=== PATIENT | female | born 1995 | race Caucasian/White ===

== ENCOUNTER 2022-08-01 22:13 | Outpatient (REF) | payer OTHER, SELFPAY ==
[2022-08-06 13:09] LABS: Age Gdln ACOG Testing Note (.); IGP, rfx Aptima HPV ASCU Note (.)
== END 2022-08-01 22:14 | disposition home or self-care (01) ==
LOC: LAB 22:13
PROVIDERS: Visit Provider Obstetrics & Gynecology
DX: Z12.4 Encounter for screening for malignant neoplasm of cervix (principal)
CPT/HCPCS: G0145

== ENCOUNTER 2022-09-10 11:15 | Outpatient (OUT) | payer BC, OTHER, SELFPAY ==
--- NOTE | 2022-09-10 11:20 | US_ITS ---
[address] [address] Patient Name: EPHRAIM MONTGOMERY MRN: [id number] date: 1995 Sex: F Assigned Patient Location: US Current Patient Location: Accession/Order Number: [id number] Exam Date: 09/10/2022 11:20 Report Date: 09/10/2022 15:46 At the request of: ALEX RIDER Procedure: US OB anatomy EXAMINATION: US OB anatomy HISTORY: ANATOMY COMPARISON: No relevant comparison available. TECHNIQUE: Transabdominal sonographic examination was performed for obstetrical and evaluation. FINDINGS: Number: 1 Heart Rate: 152.0 bpm H.B. /min Amniotic Fluid Volume: Subjectively normal Placental Location: Anterior with lower margin 9.4 cm from os. Cervix Length: 5 cm , closed. ANATOMY: Normal Structures -cerebellum, choroid plexus, cisterna magna, lateral cerebral ventricles, orbits, midline falx, hard palate, four-chamber heart, RVOT, LVOT, stomach, kidneys, bladder, umbilical cord insertion into abdomen, three-vessel cord, cervical spine, thoracic spine, lumbar spine, sacral spine, right upper extremity, left upper extremity, right lower extremity, left lower extremity. SUBOPTIMALLY SEEN: None ABNORMALITIES: Echogenic focus within left cardiac ventricle. Slightly prominent renal pelvis, left greater than right. BIOMETRY: BPD: 5.0 cm 21 weeks 0 days HC: 18.3 cm 20 weeks 5 days AC: 16.7 cm 21 weeks 5 days FL: 3.4 cm 20 weeks 4 days EFW:401.8 grams; 92% FL/AC: 20.2 FL/BPD: 67.8 HC/AC: 1.1 GESTATIONAL AGE: Age by EDC: 20 weeks 1 days LIZBET by EDC: 01/27/2023 Age by current US: 21 weeks 0 days LIZBET by current US: 01/21/2023 US/US OB anatomy IMPRESSION: 1. Single live intrauterine with growth detailed above. 2. Echogenic focus within left cardiac ventricle; nonspecific but can be associated with the trisomy syndromes. 3. Slightly prominent renal pelvis bilaterally, but within normal limits. Electronically authenticated by: HEATHER ANDREWS Date: 09/10/2022 15:46
--- NOTE | 2022-09-10 11:20 | US_ITS ---
[address] [address] Patient Name: EPHRAIM MONTGOMERY MRN: [id number] date: 1995 Sex: F Assigned Patient Location: US Current Patient Location: Accession/Order Number: [id number] Exam Date: 09/10/2022 11:20 Report Date: 09/10/2022 15:46 At the request of: ALEX RIDER Procedure: US OB transvaginal EXAMINATION: US OB anatomy HISTORY: ANATOMY COMPARISON: No relevant comparison available. TECHNIQUE: Transabdominal sonographic examination was performed for obstetrical and evaluation. FINDINGS: Number: 1 Heart Rate: 152.0 bpm H.B. /min Amniotic Fluid Volume: Subjectively normal Placental Location: Anterior with lower margin 9.4 cm from os. Cervix Length: 5 cm , closed. ANATOMY: Normal Structures -cerebellum, choroid plexus, cisterna magna, lateral cerebral ventricles, orbits, midline falx, hard palate, four-chamber heart, RVOT, LVOT, stomach, kidneys, bladder, umbilical cord insertion into abdomen, three-vessel cord, cervical spine, thoracic spine, lumbar spine, sacral spine, right upper extremity, left upper extremity, right lower extremity, left lower extremity. SUBOPTIMALLY SEEN: None ABNORMALITIES: Echogenic focus within left cardiac ventricle. Slightly prominent renal pelvis, left greater than right. BIOMETRY: BPD: 5.0 cm 21 weeks 0 days HC: 18.3 cm 20 weeks 5 days AC: 16.7 cm 21 weeks 5 days FL: 3.4 cm 20 weeks 4 days EFW:401.8 grams; 92% FL/AC: 20.2 FL/BPD: 67.8 HC/AC: 1.1 GESTATIONAL AGE: Age by EDC: 20 weeks 1 days LIZBET by EDC: 01/27/2023 Age by current US: 21 weeks 0 days LIZBET by current US: 01/21/2023 US/US OB transvaginal IMPRESSION: 1. Single live intrauterine with growth detailed above. 2. Echogenic focus within left cardiac ventricle; nonspecific but can be associated with the trisomy syndromes. 3. Slightly prominent renal pelvis bilaterally, but within normal limits. Electronically authenticated by: HEATHER ANDREWS Date: 09/10/2022 15:46
== END 2022-09-10 11:16 | disposition home or self-care (01) ==
LOC: US 11:15
PROVIDERS: PCP Family Medicine; Visit Provider Obstetrics & Gynecology
DX: O36.8920 Maternal care for other specified fetal problems, second trimester, not applicable or unspecified (principal); Z3A.00 Weeks of gestation of pregnancy not specified
CPT/HCPCS: 76805; 76817

== ENCOUNTER 2022-10-12 07:57 | Outpatient (OUT) | payer OTHER, SELFPAY ==
--- NOTE | 2022-10-12 08:08 | US_ITS ---
[address] [address] Patient Name: EPHRAIM MONTGOMERY MRN: [id number] date: 1995 Sex: F Assigned Patient Location: US Current Patient Location: Accession/Order Number: [id number] Exam Date: 10/12/2022 08:12 Report Date: 10/12/2022 09:31 At the request of: ALEX RIDER Procedure: US OB follow up EXAMINATION: US OB follow up HISTORY: Second Trimester Z34.92 COMPARISON: No relevant comparison available. FINDINGS: Mild dilation of bilateral renal pelvis measuring 3.6 mm on the right and 6.1 mm on the left Stable single cardiac echogenic focus Heart rate: 145 beats minute Cephalic position US/US OB follow up IMPRESSION: Stable echogenic cardiac focus Stable mild bilateral renal pelviectasis Electronically authenticated by: NILDA HANDLEY Date: 10/12/2022 09:31
== END 2022-10-12 07:58 | disposition home or self-care (01) ==
LOC: US 07:57
PROVIDERS: PCP Family Medicine; Visit Provider Obstetrics & Gynecology
DX: Z34.92 Encounter for supervision of normal pregnancy, unspecified, second trimester (principal)
CPT/HCPCS: 76816

== ENCOUNTER 2022-10-12 08:48 | Outpatient (OUT) | payer OTHER, SELFPAY ==
[2022-10-12 10:01] LABS: Basophils Percent Auto 0.2 % (0.2-2.0); Eosinophils Absolute Auto 0.1 10^3/uL (0.0-0.7); Eosinophils Percent Auto 0.8 % (0.9-7.0); Hematocrit 35.2 % (36.0-48.0); Hemoglobin 11.5 g/dL (12.0-16.0); Immature Granulocytes Abs Auto 0.06 10^3/uL (0.00-0.03); Immature Granulocytes Pct Auto 0.7 % (0.0-0.5); Lymphocytes Absolute Auto 1.4 10^3/uL (1.2-3.8); Lymphocytes Percent Auto 15.5 % (20.5-60.0); Mean Corpuscular HGB Conc 32.7 g/dL (29.9-35.2); Mean Corpuscular Volume 88.7 fL (81.0-99.0); Mean Platelet Volume 10.9 fL (9.5-13.5); Monocytes Absolute Auto 0.6 10^3/uL (0.3-0.8); Monocytes Percent Auto 6.4 % (1.7-12.0); Neutrophils Absolute Auto 6.9 10^3/uL (1.4-6.5); Neutrophils Percent Auto 76.4 % (43.0-75.0); Platelet Count 171 10^3/uL (150-450); Red Blood Count 3.97 10^6/uL (4.20-5.40); Red Cell Distribution Width 12.9 % (11.0-15.0)
[2022-10-12 10:23] LABS: Glucose 1 Hour 124 mg/dL
== END 2022-10-12 08:49 | disposition home or self-care (01) ==
LOC: LAB 08:48
PROVIDERS: PCP Family Medicine; Visit Provider Obstetrics & Gynecology
DX: Z34.92 Encounter for supervision of normal pregnancy, unspecified, second trimester (principal)
CPT/HCPCS: 36415; 76816; 82950; 85025

== ENCOUNTER 2022-11-11 10:40 | Observation (INO) | payer OTHER, SELFPAY ==
[2022-11-11 11:02] VITALS: BP 126/65; PULSE 90
[2022-11-11 11:03] VITALS: TEMP 35.8
--- NOTE | 2022-11-11 11:11 | US_ITS ---
The [address] [address] Patient Name: EPHRAIM MONTGOMERY MRN: [id number] date: 1995 Sex: F Assigned Patient Location: [facility] Current Patient Location: Accession/Order Number: [id number] Exam Date: 11/11/2022 11:15 Report Date: 11/11/2022 12:53 At the request of: ALEX RIDER Procedure: US OB cervical length US OB cervical length, US OB placenta CLINICAL HISTORY: Cervical length. History of labor with back pain and nausea for one day. No marginal cord insertion. COMPARISON: A 07/07/2022. 09/11/2022. TECHNIQUE: Transabdominal grayscale and limited images of the placenta and fetus with no dedicated biometrics or anatomic imaging. Transvaginal imaging for cervical length. FINDINGS/IMPRESSION: US/US OB cervical length IMPRESSION: 1. Single live intrauterine gestation presently in a cephalic presentation. 2. The placenta is anterior, with no abruption and known marginal cord insertion. 12.8 cm placental tip to internal os. 3. heartbeat of 156 beats per minute. 4. Transvaginal imaging for cervical length demonstrates 3.2 cm length. Internal os is grossly closed with no significant funneling but there is very trace fluid seen in the endocervical canal. Electronically authenticated by: JIMY STANFORD Date: 11/11/2022 12:53
--- NOTE | 2022-11-11 11:11 | US_ITS ---
The [address] [address] Patient Name: EPHRAIM MONTGOMERY MRN: [id number] date: 1995 Sex: F Assigned Patient Location: [facility] Current Patient Location: Accession/Order Number: [id number] Exam Date: 11/11/2022 11:15 Report Date: 11/11/2022 12:53 At the request of: ALEX RIDER Procedure: US OB placenta US OB cervical length, US OB placenta CLINICAL HISTORY: Cervical length. History of labor with back pain and nausea for one day. No marginal cord insertion. COMPARISON: A 07/07/2022. 09/11/2022. TECHNIQUE: Transabdominal grayscale and limited images of the placenta and fetus with no dedicated biometrics or anatomic imaging. Transvaginal imaging for cervical length. FINDINGS/IMPRESSION: US/US OB placenta IMPRESSION: 1. Single live intrauterine gestation presently in a cephalic presentation. 2. The placenta is anterior, with no abruption and known marginal cord insertion. 12.8 cm placental tip to internal os. 3. heartbeat of 156 beats per minute. 4. Transvaginal imaging for cervical length demonstrates 3.2 cm length. Internal os is grossly closed with no significant funneling but there is very trace fluid seen in the endocervical canal. Electronically authenticated by: JIMY STANFORD Date: 11/11/2022 12:53
[2022-11-11 11:15] LABS: Bilirubin Urine NEGATIVE (NEGATIVE); Blood Urine NEGATIVE (NEGATIVE); Clarity Urine CLEAR (CLEAR); Color Urine LT. YELLOW (YELLOW); Glucose Urine UA NEGATIVE (NEGATIVE); Ketones Urine NEGATIVE (NEGATIVE); Leukocyte Esterase Urine MODERATE (NEGATIVE); Nitrite Urine NEGATIVE (NEGATIVE); Protein Urine NEGATIVE (NEG/TRACE); Specific Gravity Urine 1.015 (1.005-1.025); Urobilinogen Urine 0.2 EU/dL (0.2-1.0); pH Urine 7.5 (5.0-9.0)
[2022-11-11 11:19] LABS: Urine Microscopic Indicated YES
[2022-11-11 11:21] LABS: Bacteria Urine TRACE #/HPF (NONE SEEN); Cast Seen? NONE SEEN #/LPF (NONE SEEN); Crystals Seen? None Seen #/HPF (None Seen); Mucus Urine NONE SEEN (NONE SEEN); RBC Urine NONE SEEN #/HPF (0-2); Squamous Epithelial Cell Urine MODERATE #/LPF (NONE/RARE)
[2022-11-11 11:22] LABS: Urine Culture Indicated YES
== END 2022-11-11 12:15 | disposition home or self-care (01) ==
LOC: FBC 10:41
PROVIDERS: Admitting Provider Obstetrics & Gynecology; PCP Family Medicine; Visit Provider Obstetrics & Gynecology
DX: O26.893 Other specified pregnancy related conditions, third trimester (principal); M54.50 Low back pain, unspecified; Z3A.29 29 weeks gestation of pregnancy; O09.213 Supervision of pregnancy with history of pre-term labor, third trimester
CPT/HCPCS: 59025; 76815; 76817; 81001; 87086; G0378; G0379

== ENCOUNTER 2022-12-04 21:52 | Outpatient (OUT) | payer OTHER, SELFPAY ==
[2022-12-04 22:20] VITALS: RESP 18; TEMP 37.3
[2022-12-04 22:22] VITALS: BP 101/63; PULSE 73
[2022-12-04 22:41] LABS: Bilirubin Urine NEGATIVE (NEGATIVE); Blood Urine NEGATIVE (NEGATIVE); Clarity Urine CLEAR (CLEAR); Color Urine LT. YELLOW (YELLOW); Glucose Urine UA NEGATIVE (NEGATIVE); Ketones Urine NEGATIVE (NEGATIVE); Leukocyte Esterase Urine SMALL (NEGATIVE); Nitrite Urine NEGATIVE (NEGATIVE); Protein Urine NEGATIVE (NEG/TRACE); Urobilinogen Urine 0.2 EU/dL (0.2-1.0); pH Urine 7.5 (5.0-9.0)
[2022-12-04 22:44] LABS: Urine Microscopic Indicated YES
[2022-12-04 22:45] LABS: Amnisure NEGATIVE (NEGATIVE)
[2022-12-04 22:54] LABS: Bacteria Urine TRACE #/HPF (NONE SEEN); Cast Seen? NONE SEEN #/LPF (NONE SEEN); Crystals Seen? None Seen #/HPF (None Seen); Mucus Urine NONE SEEN (NONE SEEN); Squamous Epithelial Cell Urine FEW #/LPF (NONE/RARE)
[2022-12-04 22:55] LABS: Urine Culture Indicated YES
== END 2022-12-05 01:18 | disposition home or self-care (01) ==
LOC: FBCO 21:55 → FBC 21:57
PROVIDERS: PCP Family Medicine; Visit Provider Obstetrics & Gynecology
DX: O26.899 Other specified pregnancy related conditions, unspecified trimester (principal); R10.2 Pelvic and perineal pain; H53.8 Other visual disturbances; R51.9 Headache, unspecified; R10.11 Right upper quadrant pain; Z3A.00 Weeks of gestation of pregnancy not specified
CPT/HCPCS: 59025; 81001; 84112; 87086

== ENCOUNTER 2022-12-17 07:24 | Outpatient (OUT) | payer OTHER, SELFPAY ==
--- NOTE | 2022-12-17 | US_ITS ---
[address] [address] Patient Name: EPHRAIM MONTGOMERY MRN: [id number] date: 1995 Sex: F Assigned Patient Location: [facility] Current Patient Location: Accession/Order Number: [id number] Exam Date: 12/17/2022 10:30 Report Date: 12/17/2022 15:19 At the request of: ALEX RIDER Procedure: US OB BPP w non-stress EXAMINATION: US OB BPP w non-stress HISTORY: THIRD TRIMESTER Z34.93 COMPARISON: Ultrasound OB anatomy 09/10/2022 TECHNIQUE: Ultrasound biophysical profile was performed in the radiology department. BREATHING MOVEMENTS: 2.0 GROSS BODY MOVEMENTS: 2.0 TONE: 2.0 QUALITATIVE AMNIOTIC FLUID VOLUME: 2.0 PRESENTATION: CEPHALIC HEART RATE: 166.3 bpm bpm. AMNIOTIC FLUID VOLUME: 10.8 cm GESTATIONAL AGE: 34 weeks 1 days CONCLUSION: Total biophysical profile score 8.0. Electronically authenticated by: HEATHER ANDREWS Date: 12/17/2022 15:19
[2022-12-17 10:00] VITALS: BP 110/65; PULSE 95
== END 2022-12-17 10:50 | disposition home or self-care (01) ==
LOC: US 07:25 → FBC 09:51
PROVIDERS: PCP Family Medicine; Visit Provider Obstetrics & Gynecology
DX: Z34.93 Encounter for supervision of normal pregnancy, unspecified, third trimester (principal); Z3A.34 34 weeks gestation of pregnancy
CPT/HCPCS: 76818

== ENCOUNTER 2022-12-24 07:40 | Outpatient (OUT) | payer OTHER, SELFPAY ==
--- NOTE | 2022-12-24 09:54 | US_ITS ---
[address] [address] Patient Name: EPHRAIM MONTGOMERY MRN: [id number] date: 1995 Sex: F Assigned Patient Location: [facility] Current Patient Location: Accession/Order Number: [id number] Exam Date: 12/24/2022 09:58 Report Date: 12/24/2022 17:11 At the request of: ALEX RIDER Procedure: US OB BPP w non-stress EXAMINATION: US OB BPP w non-stress HISTORY: Third trimester Z34.93 COMPARISON: No relevant comparison available. TECHNIQUE: Ultrasound biophysical profile was performed in the radiology department. FINDINGS: BREATHING MOVEMENTS: 2.0 GROSS BODY MOVEMENTS: 2.0 TONE: 2.0 QUALITATIVE AMNIOTIC FLUID VOLUME: 2.0 PRESENTATION: CEPHALIC HEART RATE: 133.7 bpm H.B./min AMNIOTIC FLUID VOLUME: 17.3 cm cm GESTATIONAL AGE: 35 weeks 1 days CONCLUSION: Total biophysical profile score: 8.0 Electronically authenticated by: NILDA HANDLEY Date: 12/24/2022 17:11
[2022-12-24 10:25] VITALS: BP 122/74; PULSE 72
== END 2022-12-24 10:50 | disposition home or self-care (01) ==
LOC: US 07:41 → FBC 09:51
PROVIDERS: PCP Family Medicine; Visit Provider Obstetrics & Gynecology
DX: Z34.93 Encounter for supervision of normal pregnancy, unspecified, third trimester (principal); Z3A.35 35 weeks gestation of pregnancy
CPT/HCPCS: 76818

== ENCOUNTER 2022-12-27 01:04 | Inpatient (IN) | payer OTHER, SELFPAY ==
[2022-12-27] VITALS (66 sets, daily range): BP systolic 95–152; BP diastolic 54–86; PULSE 60–107; RESP 16–18; TEMP 35.9–37.1
[2022-12-27 01:24] LABS: Bilirubin Urine NEGATIVE (NEGATIVE); Blood Urine MODERATE (NEGATIVE); Clarity Urine CLEAR (CLEAR); Color Urine LT. YELLOW (YELLOW); Glucose Urine UA NEGATIVE (NEGATIVE); Ketones Urine NEGATIVE (NEGATIVE); Leukocyte Esterase Urine NEGATIVE (NEGATIVE); Nitrite Urine NEGATIVE (NEGATIVE); Protein Urine TRACE mg/dL (NEG/TRACE); Specific Gravity Urine 1.015 (1.005-1.025); Urobilinogen Urine 0.2 EU/dL (0.2-1.0)
[2022-12-27 01:25] LABS: Urine Microscopic Indicated YES
[2022-12-27 01:33] LABS: Bacteria Urine SMALL #/HPF (NONE SEEN); Cast Seen? NONE SEEN #/LPF (NONE SEEN); Crystals Seen? None Seen #/HPF (None Seen); Mucus Urine NONE SEEN (NONE SEEN); Squamous Epithelial Cell Urine MODERATE #/LPF (NONE/RARE); Urine Culture Indicated YES
[2022-12-27] MEDS: 0.9 % SODIUM CHLORIDE 1,000 ML 125 ML IV ×2 (01:51→07:55)
[2022-12-27] MEDS: AMPICILLIN SODIUM 2,000 MG in 0.9 % SODIUM CHLORIDE 100 ML 200 MG IV (01:52)
[2022-12-27] MEDS: BETAMETHASONE ACE/BETAMETHASONE SOD PHOS 30 MG/5 ML 12 MG IM (01:52)
[2022-12-27 02:07] LABS: Hematocrit 35.1 % (36.0-48.0); Hemoglobin 11.4 g/dL (12.0-16.0); Mean Corpuscular HGB Conc 32.5 g/dL (29.9-35.2); Mean Corpuscular Hemoglobin 27.9 pg (26.7-34.0); Platelet Count 184 10^3/uL (150-450); Red Blood Count 4.08 10^6/uL (4.20-5.40); Red Cell Distribution Width 12.9 % (11.0-15.0); White Blood Count 14.4 10^3/uL (4.0-11.0)
[2022-12-27 02:19] LABS: Amphetamine Screen Urine NEGATIVE (NEGATIVE); Barbiturates Screen Urine NEGATIVE (NEGATIVE); Benzodiazepines Screen Urine NEGATIVE (NEGATIVE); Buprenorphine Screen Urine NEGATIVE (NEGATIVE); Cannabinoid Screen Urine NEGATIVE (NEGATIVE); Cocaine Screen Urine NEGATIVE (NEGATIVE); Methadone Screen Urine NEGATIVE (NEGATIVE); Methamphetamines Screen Urine NEGATIVE (NEGATIVE); Opiate Screen Urine NEGATIVE (NEGATIVE); Oxycodone Screen Urine NEGATIVE (NEGATIVE); Phencyclidine Screen Urine NEGATIVE (NEGATIVE); Tricyclic Antidepressant Urine NEGATIVE (NEGATIVE)
[2022-12-27] MEDS: 0.9 % SODIUM CHLORIDE 1,000 ML 1000 ML IV (05:20)
[2022-12-27] MEDS: LIDOCAINE HCL 2% PF 100 MG/5 ML VIAL INJ (05:59)
[2022-12-27] MEDS: ROPIVACAINE HCL/PF 400 MG/200 ML PREMIX 6 MG EPIDURAL (06:00)
[2022-12-27] MEDS: AMPICILLIN SODIUM 1,000 MG in 0.9 % SODIUM CHLORIDE 50 ML 100 MG IV ×2 (06:04→10:21)
--- NOTE | 2022-12-27 07:18 | W.PC.ACHO ---
Registration Status: ADM IN Primary Language: Citizen [place] Preferred Language: Citizen [place] Active Medications Generic Name Dose Route Start Last Admin Trade Name Freq PRN Reason Stop Dose Admin Diphenhydramine HCl 25 mg 12/27/22 04:21 Diphenhydramine Hcl 50 Mg/Ml (1ml) Vial IV 12/28/22 04:22 Q6H PRN Itching Ephedrine Sulfate 5 mg 12/27/22 04:21 Ephedrine Sulfate 50 Mg/Ml Vial IV 12/28/22 04:22 Q5M PRN Blood Pressure - Low Fentanyl Citrate 100 mcg 12/27/22 04:21 Fentanyl Citrate/Pf 100 Mcg/2 Ml Vial EPIDURAL ONCE PRN epidural Fentanyl Citrate 100 mcg 12/27/22 04:21 Fentanyl Citrate/Pf 100 Mcg/2 Ml Vial EPIDURAL ONCE PRN epidural Sodium Chloride 1,000 mls @ 125 mls/hr 12/27/22 01:30 12/27/22 01:51 Sodium Chloride 0.9% 1,000 Ml IV 125 mls/hr .Q8H JOVANNA Administration Ampicillin 1,000 mg/ Sodium 50 mls @ 100 mls/hr 12/27/22 06:00 12/27/22 06:04 Chloride IV 100 mls/hr Q4H JOVANNA Administration Oxytocin/Sodium Chloride 20 units in 1,000 mls @ 125 mls/hr 12/27/22 01:30 Pitocin 20 Unit/1,000 Ml-Ns IV 12/27/22 09:29 Q8H JOVANNA Ropivacaine/Sodium Chloride 400 mg in 200 mls @ 6 mls/hr 12/27/22 04:30 12/27/22 06:00 Naropin 0.2% 400 Mg/200 Ml Bag EPIDURAL 6 mls/hr Q24H PRN Administration epidural procedure Oxytocin/Sodium Chloride 10 units in 500 mls @ 6 mls/hr 12/27/22 07:30 Pitocin 10 Unit/500 Ml-Ns IV CONT JOVANNA Protocol 2 MILLIUNIT/MIN Lidocaine 5 ml 12/27/22 01:30 Lidocaine Viscous 2% 15 Ml Solution TOPICAL ONCE PRN Pain Lidocaine 1 ml 12/27/22 01:30 Lidocaine Hcl 1% 200 Mg/20 Ml Mdv INJ ONCE PRN Pain Lidocaine 5 ml 12/27/22 04:21 12/27/22 05:59 Lidocaine Hcl 2% Pf 100 Mg/5 Ml Vial INJ 12/28/22 04:22 5 ml Q1H PRN Administration Epidural Methylergonovine Maleate 0.2 mg 12/27/22 01:30 Methylergonovine Maleate 0.2 Mg/Ml Ampule IM 12/29/22 01:31 ONCE PRN Uterine Contractility/Contract Methylergonovine Maleate 0.2 mg 12/27/22 01:30 Methylergonovine Maleate 0.2 Mg Tablet PO 12/29/22 01:31 Q4H PRN Uterine Contractility/Contract Misoprostol 600 mcg 12/27/22 01:30 Misoprostol 100 Mcg Tablet PO 12/29/22 01:31 ONCE PRN Uterine Bleeding Misoprostol 800 mcg 12/27/22 01:30 Misoprostol 100 Mcg Tablet SL 12/29/22 01:31 ONCE PRN Uterine Bleeding Misoprostol 1,000 mcg 12/27/22 01:30 Misoprostol 100 Mcg Tablet [place] 12/29/22 01:31 ONCE PRN Uterine Bleeding Naloxone HCl 0.4 mg 12/27/22 04:21 Naloxone Hcl 0.4 Mg/Ml Vial IV 12/28/22 04:22 ONCE PRN Epidural Ondansetron HCl 4 mg 12/27/22 01:30 Ondansetron Pf 4 Mg/2 Ml Vial IV Q6H PRN Nausea And Vomiting Ondansetron HCl 4 mg 12/27/22 01:30 Ondansetron 4 Mg Rapdis Tablet SL Q6H PRN Nausea And Vomiting Oxytocin 10 unit 12/27/22 01:30 Oxytocin 10 Unit/Ml Vial IM 12/29/22 01:31 ONCE PRN Hemorrhage Diet Category Date Time Status Regular Consistency Diet Diet 12/27/22 01:31 Active IV Insertion/Site Date of IV Line Insertion [ 12/27/22 Short PIV (<1.75 in) 20g right Wrist] IV Insertion Time [Short PIV ( 01:45 <1.75 in) 20g right Wrist] Neurology Patient orientation (short person,place,time,situation list)
[2022-12-27] MEDS: OXYTOCIN/0.9 % SODIUM CHLORIDE 10 UNITS/500 ML PLAST..BAG 6 UNIT IV (07:46)
[2022-12-27] MEDS: CITALOPRAM HYDROBROMIDE 20 MG TABLET PO (09:23)
[2022-12-27] MEDS: CITALOPRAM 10 MG TABLET 1 EACH PO (09:23)
[2022-12-27] MEDS: ACETAMINOPHEN 500 MG TABLET 1000 MG PO (10:13)
--- NOTE | 2022-12-27 11:29 | PM.OBPRCVD ---
Procedure Intrapartal events: None Induction method: none Delivery augmentation: pitocin Delivery monitor: external FHT and external uterine Route of delivery: Episiotomy Description: none Laceration description: perineal - 1st degree Delivery repair: Vicryl Estimated blood loss (mL): 250 Anesthesia type: Epidural Disposition: floor Delivery date: 12/27/22 Gender: male presentation: vertex Placental delivery description: Spontaneous cord description: 3 Vessels
[2022-12-27] MEDS: OXYTOCIN/0.9 % SODIUM CHLORIDE 20 UNITS/1,000 ML PLAST..BAG 125 UNIT IV (11:47)
--- NOTE | 2022-12-27 11:59 | PC.NURSE ---
12/27/2022 1159 epidural catheter removed with tip intact
--- NOTE | 2022-12-27 12:01 | PC.NURSE ---
12/27/2022 1116 viable baby boy born via vaginal delivery. perineum [address] regalado in repairs perineum. patient tolerated labor and delivery as expected. baby boy pink with blue coloration and spontaneous cry present.
--- NOTE | 2022-12-27 12:03 | PC.NURSE ---
RN at bedside assisting with first and initial breast feeding latch.
[2022-12-27] MEDS: BENZOCAINE/MENTHOL 85 GRAM SPRAY BOTTLE 1 APPLIC TOPICAL (12:31)
[2022-12-27] MEDS: GLYCERIN/WITCH HAZEL PADS 1 PAD TOPICAL (12:32)
--- NOTE | 2022-12-27 13:05 | PC.NURSE ---
RN at bedside demonstrating hand expression to patient to feed to for blood sugar. Patient declines to do hand expression per self and only to have done by RN. 2ml expressed out from 5 minutes of hand expression to bilateral breasts. RN demonstrates breast pump and pt pumping bilateral breasts and holding per self. RN asks pt if willing and wanting to breast feed and patient states, yes i want to, but i just dont like my breasts messed with. RN provides reassurance and further breast feeding education. RN provides breast milk and colostrum education to pt.
--- NOTE | 2022-12-27 14:18 | PC.NURSE ---
patient up to bathroom for first time since epidural and delivery patient denies any weakness, dizziness or any unsteady feelings. RN assists patient with pericare. perineum remains edematous at this time sutures intact. patient uses PRN medications to perineum. new peripad placed and panties on. linens on bed changed. new gown placed on pt. pt up washing up in sink and brushing teeth, RN cleans pt back up. Patient able to get up on own if denying any weakness, unsteady feelings, or dizziness. RN encourages pt to call RN before getting up on own if feeling any of these symptoms. pt agrees to do so and verbalizes understanding.
[2022-12-27] MEDS: IBUPROFEN 600 MG TABLET PO ×2 (15:48→21:31)
--- NOTE | 2022-12-27 18:41 | PC.NURSE ---
Pt states new complaint of back pain. RN offers PRN pain medication and pt states wanting to wait awhile to see how it goes. Pt states that before she would take a muscle relaxer every night. When RN asked what it was she states, it is Tizanidine and I took 2 tablets that were 4mg a piece every night because I have a stiff back. I may want that tonight. RN educates patient that muscle relaxers are not ordered for her to take here at this time and it would be something the RN would have to call and discuss with doctor about. pt states, I will just have my get them from home if i need them. RN educates pt about use of muscle relaxers and the impairment it can cause while caring for and RN educates pt that taking medications without doctors approval and order is not allowed in hospital. Pt states, the muscle relaxer was never taken during and was prescribed by Dr. Gomez for my stiff back, but I understand and can manage my pain since I already have this long. When I am moving around my pain gets intolerable and gets to about 8/10 on numeric pain scale. RN educates pt that Tylenol is able to be taken for pain at any time and pt continues to decline Tylenol at this time.
--- NOTE | 2022-12-27 19:01 | PC.NURSE ---
RN provides patient with further education that through research muscle relaxers are not safe to use during breast feeding as it can pass through the breast milk to the . Patient and listen to RN's education and agree to not take medication. RN provides pt with K-pad for back to provide comfort for stiff back. Pt continues to decline offer for Tylenol.
--- NOTE | 2022-12-27 19:28 | W.PC.ACHO ---
Registration Status: ADM IN Primary Language: Citizen Of [place] Preferred Language: Citizen Of [place] Report received from Monica العراقي RN. Active Medications Generic Name Dose Route Start Last Admin Trade Name Freq PRN Reason Stop Dose Admin Acetaminophen 650 mg 12/27/22 11:30 Acetaminophen 325 Mg Tablet PO Q6H PRN Mild Pain Al Hydroxide/Mg Hydroxide 2,400 mg 12/27/22 11:30 Magnesium Hydroxide 2,400 Mg/10 Ml Oral.Susp PO Q6H PRN Dyspepsia Benzocaine/Menthol 1 applic 12/27/22 11:30 12/27/22 12:31 Benzocaine/Menthol 85 Gram [place] Bottle TOPICAL 1 applic Q2H PRN Administration Pain Celecoxib 20 mg 12/27/22 10:00 12/27/22 09:23 Citalopram Hydrobromide 20 Mg Tablet PO 20 mg QD JOVANNA Administration Diphtheria/Pertussis/Tetanus Vacc 0.5 ml 12/29/22 09:00 Adacel Diph,Pertuss(Acell),Tet Vac/Pf 0.5 Ml Adult Syringe IM 12/29/22 09:01 .ONCE ONE Docusate Sodium 100 mg 12/28/22 09:00 Docusate Sodium 100 Mg Capsule PO BID JOVANNA Sodium Chloride 1,000 mls @ 125 mls/hr 12/27/22 01:30 12/27/22 07:55 Sodium Chloride 0.9% 1,000 Ml IV 125 mls/hr .Q8H JOVANNA Administration Oxytocin 20 unit/ Sodium 1,002 mls @ 125 mls/hr 12/27/22 11:30 Chloride IV 12/27/22 19:29 Q8H JOVANNA Ibuprofen 600 mg 12/27/22 11:30 12/27/22 15:48 Ibuprofen 600 Mg Tablet PO 600 mg Q6H PRN Administration Moderate Pain Measles/Mumps/Rubella Vaccine Live 0.5 ml 12/29/22 09:00 Measles,Mumps,Rubella Vacc/Pf 0.5 Ml Vial SQ 12/29/22 09:01 .ONCE ONE Methylergonovine Maleate 0.2 mg 12/27/22 01:30 Methylergonovine Maleate 0.2 Mg/Ml Ampule IM 12/28/22 12:00 ONCE PRN Uterine Contractility/Contract Methylergonovine Maleate 0.2 mg 12/27/22 01:30 Methylergonovine Maleate 0.2 Mg Tablet PO 12/28/22 12:00 Q4H PRN Uterine Contractility/Contract Misoprostol 600 mcg 12/27/22 01:30 Misoprostol 100 Mcg Tablet PO 12/29/22 01:31 ONCE PRN Uterine Bleeding Misoprostol 800 mcg 12/27/22 01:30 Misoprostol 100 Mcg Tablet SL 12/29/22 01:31 ONCE PRN Uterine Bleeding Misoprostol 1,000 mcg 12/27/22 01:30 Misoprostol 100 Mcg Tablet [place] 12/29/22 01:31 ONCE PRN Uterine Bleeding Citalopram 10 Mg 1 each 12/27/22 10:00 12/27/22 09:23 Tablet PO 1 each QD JOVANNA Administration Ondansetron HCl 4 mg 12/27/22 01:30 Ondansetron Pf 4 Mg/2 Ml Vial IV Q6H PRN Nausea And Vomiting Ondansetron HCl 4 mg 12/27/22 01:30 Ondansetron 4 Mg Rapdis Tablet SL Q6H PRN Nausea And Vomiting Oxytocin 10 unit 12/27/22 01:30 Oxytocin 10 Unit/Ml Vial IM 12/29/22 01:31 ONCE PRN Hemorrhage Senna 17.2 mg 12/27/22 20:00 Sennosides 8.6 Mg Tablet PO QHS PRN Constipation Simethicone 80 mg 12/27/22 11:30 Simethicone 80 Mg Tab.Chew PO QID PRN Abdominal Distention Temazepam 15 mg 12/27/22 11:30 Temazepam 15 Mg Capsule PO QHS PRN Sleep Witch Carley/Glycerin 1 pad 12/27/22 11:30 12/27/22 12:32 Glycerin/Witch Carley Pads TOPICAL 1 pad Q2H PRN Administration Pain Diet Category Date Time Status Regular Consistency Diet Diet 12/27/22 11:34 Active IV Insertion/Site Date of IV Line Insertion [ 12/27/22 Short PIV (<1.75 in) 20g right Wrist] IV Insertion Time [Short PIV ( 01:45 <1.75 in) 20g right Wrist] Neurology Patient orientation (short person,place,time,situation list) Respiratory Oxygen Delivery Method Room Air Oxygen Delivery Method Room Air Cardiology Heart Sounds Regular Heart Sounds Regular Bowels Bowel Pattern Constipated Date of Last Bowel Movement 12/27/22 Renal Bladder Pattern Continent Bladder Pattern Continent Catheter Date Urinary Catheter Removed 12/27/22
[2022-12-28] VITALS (8 sets, daily range): BP systolic 95–125; BP diastolic 50–75; PULSE 68–90; RESP 14–18; TEMP 36.1–36.8
[2022-12-28] MEDS: IBUPROFEN 600 MG TABLET PO ×3 (04:22→21:01)
[2022-12-28 06:02] LABS: Basophils Percent Auto 0.2 % (0.2-2.0); Eosinophils Percent Auto 0.1 % (0.9-7.0); Hematocrit 30.9 % (36.0-48.0); Immature Granulocytes Abs Auto 0.15 10^3/uL (0.00-0.03); Immature Granulocytes Pct Auto 0.9 % (0.0-0.5); Lymphocytes Absolute Auto 2.2 10^3/uL (1.2-3.8); Lymphocytes Percent Auto 13.7 % (20.5-60.0); Mean Corpuscular HGB Conc 32.4 g/dL (29.9-35.2); Mean Corpuscular Hemoglobin 28.4 pg (26.7-34.0); Mean Corpuscular Volume 87.8 fL (81.0-99.0); Mean Platelet Volume 11.5 fL (9.5-13.5); Monocytes Absolute Auto 1.1 10^3/uL (0.3-0.8); Monocytes Percent Auto 6.7 % (1.7-12.0); Neutrophils Absolute Auto 12.4 10^3/uL (1.4-6.5); Neutrophils Percent Auto 78.4 % (43.0-75.0); Platelet Count 174 10^3/uL (150-450); Red Blood Count 3.52 10^6/uL (4.20-5.40); White Blood Count 15.8 10^3/uL (4.0-11.0)
--- NOTE | 2022-12-28 07:32 | W.PC.ACHO ---
Registration Status: ADM IN Primary Language: [place]ian Preferred Language: [place]ian Report given to Kathy Mera RN. Active Medications Generic Name Dose Route Start Last Admin Trade Name Freq PRN Reason Stop Dose Admin Acetaminophen 650 mg 12/27/22 11:30 Acetaminophen 325 Mg Tablet PO Q6H PRN Mild Pain Al Hydroxide/Mg Hydroxide 2,400 mg 12/27/22 11:30 Magnesium Hydroxide 2,400 Mg/10 Ml Oral.Susp PO Q6H PRN Dyspepsia Benzocaine/Menthol 1 applic 12/27/22 11:30 12/27/22 12:31 Benzocaine/Menthol 85 Gram [place] Bottle TOPICAL 1 applic Q2H PRN Administration Pain Celecoxib 20 mg 12/27/22 10:00 12/27/22 09:23 Citalopram Hydrobromide 20 Mg Tablet PO 20 mg QD JOVANNA Administration Diphtheria/Pertussis/Tetanus Vacc 0.5 ml 12/29/22 09:00 Adacel Diph,Pertuss(Acell),Tet Vac/Pf 0.5 Ml Adult Syringe IM 12/29/22 09:01 .ONCE ONE Docusate Sodium 100 mg 12/28/22 09:00 Docusate Sodium 100 Mg Capsule PO BID JOVANNA Sodium Chloride 1,000 mls @ 125 mls/hr 12/27/22 01:30 12/27/22 07:55 Sodium Chloride 0.9% 1,000 Ml IV 125 mls/hr .Q8H JOVANNA Administration Ibuprofen 600 mg 12/27/22 11:30 12/28/22 04:22 Ibuprofen 600 Mg Tablet PO 600 mg Q6H PRN Administration Moderate Pain Measles/Mumps/Rubella Vaccine Live 0.5 ml 12/29/22 09:00 Measles,Mumps,Rubella Vacc/Pf 0.5 Ml Vial SQ 12/29/22 09:01 .ONCE ONE Methylergonovine Maleate 0.2 mg 12/27/22 01:30 Methylergonovine Maleate 0.2 Mg/Ml Ampule IM 12/28/22 12:00 ONCE PRN Uterine Contractility/Contract Methylergonovine Maleate 0.2 mg 12/27/22 01:30 Methylergonovine Maleate 0.2 Mg Tablet PO 12/28/22 12:00 Q4H PRN Uterine Contractility/Contract Misoprostol 600 mcg 12/27/22 01:30 Misoprostol 100 Mcg Tablet PO 12/29/22 01:31 ONCE PRN Uterine Bleeding Misoprostol 800 mcg 12/27/22 01:30 Misoprostol 100 Mcg Tablet SL 12/29/22 01:31 ONCE PRN Uterine Bleeding Misoprostol 1,000 mcg 12/27/22 01:30 Misoprostol 100 Mcg Tablet [place] 12/29/22 01:31 ONCE PRN Uterine Bleeding Citalopram 10 Mg 1 each 12/27/22 10:00 12/27/22 09:23 Tablet PO 1 each QD JOVANNA Administration Ondansetron HCl 4 mg 12/27/22 01:30 Ondansetron Pf 4 Mg/2 Ml Vial IV Q6H PRN Nausea And Vomiting Ondansetron HCl 4 mg 12/27/22 01:30 Ondansetron 4 Mg Rapdis Tablet SL Q6H PRN Nausea And Vomiting Oxytocin 10 unit 12/27/22 01:30 Oxytocin 10 Unit/Ml Vial IM 12/29/22 01:31 ONCE PRN Hemorrhage Senna 17.2 mg 12/27/22 20:00 Sennosides 8.6 Mg Tablet PO QHS PRN Constipation Simethicone 80 mg 12/27/22 11:30 Simethicone 80 Mg Tab.Chew PO QID PRN Abdominal Distention Temazepam 15 mg 12/27/22 11:30 Temazepam 15 Mg Capsule PO QHS PRN Sleep Witch Carley/Glycerin 1 pad 12/27/22 11:30 12/27/22 12:32 Glycerin/Witch [place] Pads TOPICAL 1 pad Q2H PRN Administration Pain Diet Category Date Time Status Regular Consistency Diet Diet 12/27/22 11:34 Active Respiratory Oxygen Delivery Method Room Air Oxygen Delivery Method Room Air Oxygen Delivery Method Room Air Oxygen Delivery Method Room Air Oxygen Delivery Method Room Air Oxygen Delivery Method Room Air Cardiology Heart Sounds Regular Heart Sounds Regular Bowels Bowel Pattern Constipated Date of Last Bowel Movement 12/27/22 Renal Bladder Pattern Continent Bladder Pattern Continent Bladder Pattern Continent Bladder Pattern Continent Bladder Pattern Continent Catheter Date Urinary Catheter Removed 12/27/22
[2022-12-28] MEDS: ACETAMINOPHEN 325 MG TABLET 650 MG PO (08:10)
[2022-12-28] MEDS: DOCUSATE SODIUM 100 MG CAPSULE PO ×2 (08:10→21:01)
[2022-12-28] MEDS: CITALOPRAM HYDROBROMIDE 20 MG TABLET PO (08:11)
[2022-12-28] MEDS: CITALOPRAM 10 MG TABLET 1 EACH PO (08:11)
--- NOTE | 2022-12-28 08:42 | PM.OBPN ---
OB - PN: Subj Subjective Patient comments: no complaints and pain well controlled [place] status: doing well Exam Constitutional Vital Signs, click to edit/add: Last Vital Signs Temp 97.8 F 12/28/22 07:50 Pulse 74 12/28/22 07:52 Resp 16 12/28/22 07:50 BP 95/50 12/28/22 07:52 O2 Del Method Room Air 12/28/22 07:50 Documenting provider has reviewed patient's vital signs: yes Common normals: no apparent distress Respiratory Common normals: normal respiratory effort and clear to auscultation bilaterally Cardio Common normals: regular rate and regular rhythm GI Common normals: Normal to inspection, nondistended, normoactive bowel sounds present Extremity Common normals: no calf tenderness Results Labs Labs: Short CBC 12/28/22 Range/Units 05:55 WBC 15.8 H (4.0-11.0) 10^3/uL Hgb 10.0 L (12.0-16.0) g/dL Hct 30.9 L (36.0-48.0) % Plt Count 174 (150-450) 10^3/uL OB - PN: A/P Plan - Vaginal Delivery day: 1 Plan: routine care Time Spent with Patient Time: Total time spent is greater than 50% in coordination of care (as documented) at patient's floor/unit and/or counseling patient: Total time spent with greater than 50% in coordination of care (as documented) at patient's floor/unit and/or counseling patient: less than 15 minutes
--- NOTE | 2022-12-28 11:58 | PC.NURSE ---
Mother's first experience with and has a 35 week male. sleepy and poor feeding cues. Cries when disturbed but returns to sleep quickly, No successful latching at this time. Mom has large heavy breast with everted nipple. Learning positioning and latch , baby shows little interest in latching. Discussed pro's and con's of nipple shield and mother wants to try. Shield placement demo's and verbalized understanding of proper placement. Baby offered breast and shield does latch and has weak suckle, some tongue fluttering and small burst with pauses. Mom relates that is the most that he has done at the breast so far . Discussed need to pump for stimulation and milk removal as baby is not emptying breast with feed. Verbalized understanding. Mother is also not really engaged in feeding and states shouldn't he just do this . Reviewed Late behaviors and abilities.
[2022-12-29 00:27] VITALS: BP 92/44; PULSE 71
[2022-12-29 00:28] VITALS: BP 104/60; PULSE 64
[2022-12-29 00:36] VITALS: RESP 14; TEMP 36.8
--- NOTE | 2022-12-29 07:15 | PC.NURSE ---
Report given to Aracely Toro RN
[2022-12-29 07:52] VITALS: BP 118/73; PULSE 63
[2022-12-29 08:30] VITALS: RESP 16; TEMP 36.5
[2022-12-29] MEDS: DOCUSATE SODIUM 100 MG CAPSULE PO (09:41)
--- NOTE | 2022-12-29 11:42 | PM.OBDS ---
DS: Providers Provider Date of admission: 12/27/22 01:04 Primary care physician: Aldair Gomez MD Attending physician on admission: Donta Kaba Discharging clinician: Carlene Carlisle DS: Diagnosis Discharge Diagnosis (1) Normal vaginal delivery: Assessment and plan: ROUTINE POST CARE, CONDITION GOOD Plan NO SEX FOR SIX WEEKS, WEAR SPORTS BRA 10/09 BOTTLE FEEDING TO INHIBIT MILK PRODUCTION, WALKING ONLY FORM OF EXERCISE FOR SIX WEEKS, MAY SHOWER, ONLY LIFT BABY, MAKE POST APPOINTMENT FOR SIX WEEKS FROM DELIVERY WITH PROVIDER OB - DS: Summary Hospital Course Hospital Course: UNCOMPLICATED Time spent discussing smoking cessation with patient: 3 to 10 minutes Peripartum Data - Vaginal Delivery Laceration description: perineal - 1st degree Episiotomy Description: none Complications complications: none Delivery method: spontaneous vaginal delivery Gender: male Discharge plan: home Status at Discharge Functional status at discharge: independent ambulation Overall status at discharge: patient is back to baseline Time Spent with Patient Time attestation: Total time spent providing and/or coordinating discharge services: Time spent: less than 30 minutes Exam Constitutional Vital Signs, click to edit/add: Last Vital Signs Temp 97.7 F 12/29/22 08:30 Pulse 63 12/29/22 07:52 Resp 16 12/29/22 08:30 BP 118/73 12/29/22 07:52 O2 Del Method Room Air 12/29/22 00:36 Documenting provider has reviewed patient's vital signs: yes Common normals: no apparent distress HENMT Common normals: normocephalic and head/scalp atraumatic Eye Pupil: PERRL and accommodation reflex normal Neck & C-Spine Common normals: full ROM Respiratory Common normals: normal respiratory effort Cardio Common normals: regular rate and regular rhythm GI Common normals: Normal to inspection, nondistended, normoactive bowel sounds present Common normals: no CVA tenderness Extremity Common normals: normal to inspection, full ROM and no calf tenderness Neuro Common normals: CN's II-XII intact bilaterally, no focal motor deficits and no sensory deficits noted Psych Common normals: mental status grossly normal, thought process normal and cooperative Discharge Plan Discharge Disposition: Home, Self-Care Condition: Good Assessment: CONDITION GOOD, AFEBRILE, VSS, PERINEUM INTACT, BOTTLE FEEDING, AMBULATING AND EATING NORMALLY, VOIDING, VOICING NO COMPLAINTS Plan of Treatment: ROUTINE POST CARE S/P VAGINAL DELIVERY Discharge Medications: Continued albuterol sulfate 2.5 mg /3 mL (0.083 %) solution for nebulization citalopram 10 mg tablet citalopram 20 mg tablet albuterol sulfate 90 mcg/actuation HFA aerosol inhaler INHALATION Discontinued Vitamin 27 mg iron- 800 mcg tablet Forms: Portal Instructions
[2022-12-29] MEDS: IBUPROFEN 600 MG TABLET PO (11:55)
[2022-12-29] MEDS: MEASLES,MUMPS,RUBELLA VACC/PF 0.5 ML VIAL SQ (12:36)
== END 2022-12-29 12:56 | disposition home or self-care (01) | DRG 560 ==
PROVIDERS: Admitting Provider Obstetrics & Gynecology; PCP Family Medicine; Visit Provider Obstetrics & Gynecology
DX: O42.013 Preterm premature rupture of membranes, onset of labor within 24 hours of rupture, third trimester (principal); O70.0 First degree perineal laceration during delivery; Z3A.35 35 weeks gestation of pregnancy; Z37.0 Single live birth; Z23 Encounter for immunization; Z91.040 Latex allergy status
CPT/HCPCS: 36415; 51702; 59025; 59050; 59410; 80307; 81001; 84112; 85025; 85027; 86850; 86900; 86901; 87086; 90471; 90707; 96365; 96372; 96375; 96376; G0463; J0702

== ENCOUNTER 2023-02-25 07:53 | Outpatient (OUT) | payer OTHER, SELFPAY ==
--- OUTSIDE RECORDS SUMMARY | 2023-02-25 07:56 | XMS_ITS | CCD ---
Author Name Unknown Address [address] [place] [address] Organization [facility] Care Team Providers Care Transcription Manager Name Role Phone Eric Diaz Unavailable MD Lona Gomez Primary Care Provider [phone] JANET Hendrix Attending Provider [phone] DR LOAN DEL ANGEL Consulting Unavailable HOY ., DR ZAMORANO Attending Unavailable HOY ., DR ZAMORANO Admitting Unavailable HOY ., DR ZAMORANO Primary Care Unavailable ENDER, DR NILDA Rodriguez Consulting Unavailable MISC, DR ALEXIS Attending Unavailable MISC, DR ALEXIS Admitting Unavailable HOY ., DR ZAMORANO Primary Care Unavailable ENDER, DR NILDA Rodriguez Consulting Unavailable MISC, DR ALEXIS Consulting Unavailable RICHYY ., DR ZAMORANO Primary Care Unavailable HOY ., DR ZAMORANO Attending Unavailable HOY ., DR ZAMORANO Admitting Unavailable HOY ., DR ZAMORANO Consulting Unavailable QUE MELENDEZ Attending Unavailable QUE MELENDEZ Admitting Unavailable HOY ., DR ZAMORANO Primary Care Unavailable QUE MELENDEZ Consulting Unavailable ALEK MONTELONGO Consulting Unavailable DIAB ., OSCAR Attending Unavailable DIAB ., OSCAR Admitting Unavailable DIAB ., OSCAR Consulting Unavailable NATALIE ., DR ZAMORANO Primary Care Unavailable TERESO ., DR JOHNSON Consulting Unavailable TERESO ., DR JOHNSON Attending Unavailable HOY ., DR ZAMORANO Primary Care Unavailable TERESO ., DR JOHNSON Admitting Unavailable TERESO ., DR JOHNSON Admitting Unavailable HOY ., DR ZAMORANO Primary Care Unavailable TERESO ., DR JOHNSON Attending Unavailable TERESO ., DR JOHNSON Consulting Unavailable ZIEBER, DR HEATHER Wilhelm Consulting Unavailable HOY ., DR ZAMORANO Admitting Unavailable HOY ., DR ZAMORANO Primary Care Unavailable HOY ., DR ZAMORANO Consulting Unavailable HOY ., DR ZAMORANO Attending Unavailable TERESO ., DR JOHNSON Admitting Unavailable TERESO ., DR JOHNSON Consulting Unavailable HOY ., DR ZAMORANO Primary Care Unavailable TERESO ., DR JOHNSON Attending Unavailable HOY ., DR ZAMORANO Primary Care Unavailable HOY ., DR ZAMORANO Consulting Unavailable HOY ., DR ZAMORANO Attending Unavailable HOY ., DR ZAMORANO Admitting Unavailable TERESO ., DR JOHNSON Consulting Unavailable HOY ., DR ZAMORANO Primary Care Unavailable TERESO ., DR JOHNSON Attending Unavailable TERESO ., DR JOHNSON Admitting Unavailable TERESO ., DR JOHNSON Consulting Unavailable TERESO ., DR JOHNSON Attending Unavailable HOY ., DR ZAMORANO Primary Care Unavailable TERESO ., DR JOHNSON Admitting Unavailable JASWANT, DR AKERS Attending Unavailable JASWANT, DR AKERS Admitting Unavailable HOY ., DR ZAMORANO Primary Care Unavailable JASWANT, DR AKERS Consulting Unavailable HOY ., DR ZAMORANO Primary Care Unavailable HOY ., DR ZAMORANO Consulting Unavailable HOY ., DR ZAMORANO Attending Unavailable HOY ., DR ZAMORANO Admitting Unavailable HOY ., DR ZAMORANO Attending Unavailable HOY ., DR ZAMORANO Primary Care Unavailable HOY ., DR ZAMORANO Admeugenio Unavailable HOY ., DR ZAMORANO Primary Care Unavailable [place], DR NILDA Rodriguez Consulting Unavailable PAY ., DR WYNNE Attending Unavailable PAY ., DR WYNNE Admitting Unavailable PAY ., DR WYNNE Consulting Unavailable ROBERT .ESSENCE Consulting UnavailBERNARDO Eldridge Admitting Unavailable HOY ., DR ZAMORANO Primary Care Unavailable GRENAN .ESSENCE Consulting UnavailBERNARDO Eldridge Attending Unavailable IKE COMBS Consulting Unavailable Al Snow Unavailable MARY TRAN Primary Care Unavailable GHAZAL MIJARES Referring Unavailable RADHA POSADA Attending Unavailable Allergies Allergy Classification Reported Allergen(s) Allergy Type Date of Onset Reaction(s) Facility (2 sources) Latex Drug allergy (disorder) 02-24-2016 [facility] Repository Medications Current Medications Medication Drug Class(es) Dates Sig (Normalized) Sig (Original) citalopram 20 mg oral tablet (1 source) Serotonin Reuptake Inhibitor take 1 tablet by mouth every twenty-four hours CeleXA 20 MG 1 tablet Orally Once a day Active cyproheptadine hydrochloride 4 mg oral tablet (6 sources) Start: 04-25-2021 take 4 mg by mouth twice daily Cyproheptadine Active 4 MG PO Twice daily April 25, 2021 1:00am doxycycline monohydrate 100 mg oral capsule (5 sources) Tetracycline-cl ass Drug Start: 04-25-2021 take 100 mg by mouth twice daily Doxycycline Monohydrate Active 100 MG PO Twice daily April 25, 2021 1:00am Doxycycline Acti ve DULoxetine 60 mg delayed release oral capsule (6 sources) Serotonin and Norepinephrine Reuptake Inhibitor Start: 04-25-2021 take 60 mg by mouth twice daily Duloxetine Active 60 MG PO Twice daily April 25, 2021 1:00am take [address] [facility] every twenty-four hours Cymbalta 60 MG 1 capsule Orally Once a day Active levothyroxine sodium 0.05 mg oral tablet (6 sources) l-Thyroxine Start: 04-25-2021 take 1 tablet by mouth once daily Levothyroxine (Euthyrox) 50 mcg tablet Active 50 MCG PO Daily April 25, 2021 1:00am take 1 tablet by hussein once daily in the morning Levothyroxine Sodium 25 MCG 1 tablet in the morning on an empty stomach Orally Once a day Active omeprazole 40 mg delayed release oral capsule (1 source) Proton Pump Inhibitor take 1 capsule by mouth once daily Omeprazole 40 MG 1 capsule 30 minutes before morning meal Orally Once a day Active rizatriptan 10 mg oral tablet (6 sources) Serotonin-1b and Serotonin-1d Receptor Agonist Start: 2 take 10 mg by mouth once daily Rizatriptan Active 10 MG PO Daily April 25, 2021 1:00am tiZANidine 4 mg oral tablet (6 sources) Central alpha-2 Adrenergic Agonist Start: 2 take 4 mg by mouth once daily at bedtime Tizanidine Active 4 MG PO Daily at bedtime April 25, 2021 1:00am take 1 tablet by mouth every eig ht hours tiZANidine HCl 4 MG 1 tablet as needed Orally Three times a day Active topiramate 100 mg oral tablet (6 sources) Start: 04-25-2021 take 100 mg by mouth once daily Topiramate Active 100 MG PO Daily April 25, 2021 1:00am traMADol hydrochloride 50 mg oral tablet (2 sources) Opioid Agonist Start: 03-16-2021 End: 04-25-2021 take 50 mg by mouth every four hours Tramadol Active 50 MG PO Q4H 20 7 April 25, 2021 1:00am Problems Active Problems Problem Classification Problem Date Documented Date Episodic/Chronic Abdominal pain (4 sources) Unspecified abdominal pain; Translations: [UNSPECIFIED ABDOMINAL PAIN] Onset: 06-13-2022 Episodic Administrative/social admission (1 source) Encounter for pre-employment examination Episodic Anxiety disorders (2 sources) Generalized anxiety disorder; Translations: [Generalized anxiety disorder] Chronic Congestive heart failure; nonhypertensive (1 source) Unspecified diastolic (congestive) heart failure; Translations: [UNSPECIFIED DIASTOLIC HEART FAILURE] Onset: 11-28-2021 Chronic Contraceptive and procreative management (2 sources) Encounter of female for testing for genetic disease carrier status for procreative management; Translations: [Encounter of female for testing for genetic disease carrier status for procreative management] Onset: 10-18-2022 Episodic Esophageal disorders (2 sources) Gastroesophageal reflux disease without esophagitis; Translations: [Gastro-esophageal reflux disease without esophagitis] Chronic Hemorrhage during ; abruptio placenta; placenta previa (4 sources) Threatened ; Translations: [Hemorrhage in early , unspecified] Onset: 07-17-2022 Episodic Hypertension with complications and secondary hypertension (1 source) Hypertensive heart disease with heart failure; Translations: [HTN HEART DISEASE W/HEART FAIL] Onset: 11-28-2021 Chronic Menopausal disorders (1 source) Hormone replacement therapy; Translations: [HORMONE REPLACEMENT THERAPY] Onset: 06-14-2022 Episodic Menstrual disorders (9 sources) Irregular menstruation, unspecified; Translations: [Dysmenorrhea, unspecified] Onset: 11-04-2021 Chronic Other aftercare (1 source) 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; Translations: [OTH FPC CURRENT DRUG THERAPY] Onset: 06-14-2022 Episodic Other complications of (1 source) Unspecified infection of urinary tract in , first trimester; Translations: [UNS INF URINARY TRACT PREG 1ST TRI] Onset: 06-14-2022 Episodic Other complications of (1 source) Other specified related conditions, first trimester; Translations: [OTH SPEC PREG RELATED COND 1ST TRI] Onset: 06-14-2022 Episodic Other complications of (2 sources) Supervision of other high risk pregnancies, second trimester; Translations: [Supervision of other high risk pregnancies, second trimester] Onset: 10-18-2022 Episodic Other nervous system disorders (5 sources) Carpal tunnel syndrome of right wrist; Translations: [Carpal tunnel syndrome, right upper limb] Chronic Other nervous system disorders (5 sources) Carpal tunnel syndrome of left wrist; Translations: [Carpal tunnel syndrome, left upper limb] Chronic Other nervous system disorders (6 sources) Carpal tunnel syndrome; Translations: [Carpal tunnel syndrome, unspecified upper limb] 03-16-2021 Chronic Other nervous system disorders (3 sources) Carpal tunnel syndrome, left upper limb Onset: 02-01-2021 Resolved: 05-05-2021 Chronic Other nervous system disorders (3 sources) Carpal tunnel syndrome, right upper limb Onset: 02-01-2021 Resolved: 05-05-2021 Chronic Other and delivery including normal (5 sources) Encounter for supervision of other normal , first trimester; Translations: [Encounter for supervision of normal , unspecified, first trimester] Onset: 06-30-2022 Episodic Ovarian cyst (1 source) Other ovarian cyst, right side; Translations: [OTHER OVARIAN CYST RIGHT SIDE] Onset: 05-11-2022 Episodic Residual codes; unclassified (4 sources) Obstructive sleep apnea (adult) (pediatric); Translations: [OBSTRUCTIVE SLEEP APNEA] Onset: 08-30-2021 Chronic Residual codes; unclassified (1 source) 12 weeks gestation of ; Translations: [12 WEEKS GESTATION OF ] Onset: 07-18-2022 Episodic Residual codes; unclassified (1 source) 8 weeks gestation of ; Translations: [8 WEEKS GESTATION OF ] Onset: 06-14-2022 Episodic Screening and history of mental health and substance abuse codes (1 source) Personal history of nicotine dependence; Translations: [PERSONAL HISTORY OF NICOTINE DEPEND] Onset: 07-18-2022 Episodic Urinary tract infections (2 sources) Urinary tract infection, site not specified; Translations: [UTI SITE NOT SPECIFIED] Onset: 04-09-2022 Episodic Past or Other Problems Problem Classification Problem Date Documented Date Episodic/Chronic Deficiency and other anemia (1 source) Anemia, unspecified; Translations: [ANEMIA UNSPECIFIED] Onset: 11-28-2021 Episodic Diabetes mellitus without complication (1 source) Other abnormal glucose; Translations: [OTHER ABNORMAL GLUCOSE] Onset: 11-28-2021 Episodic Genitourinary symptoms and ill-defined conditions (3 sources) Urgency of urination; Translations: [URGENCY OF URINATION] Onset: 04-05-2022 Episodic Malaise and fatigue (4 sources) Other fatigue; Translations: [OTHER FATIGUE] Onset: 10-30-2021 Episodic Nonspecific chest pain (1 source) Other chest pain; Translations: [OTHER CHEST PAIN] Onset: 12-27-2021 Episodic Other injuries and conditions due to external causes (1 source) Other injury of unspecified body region, initial encounter; Translations: [OTHER INJURY UNS BODY REGION INIT] Onset: 02-20-2022 Episodic Other lower respiratory disease (3 sources) Shortness of breath; Translations: [SHORTNESS OF BREATH] Onset: 12-26-2021 Episodic Other lower respiratory disease (4 sources) Dyspnea, unspecified; Translations: [DYSPNEA UNSPECIFIED] Onset: 12-06-2021 Episodic Other nervous system disorders (4 sources) Paresthesia of skin; Translations: [PARESTHESIA OF SKIN] Onset: 02-15-2022 Episodic Other nutritional; endocrine; and metabolic disorders (1 source) Abnormal weight gain; Translations: [ABNORMAL WEIGHT GAIN] Onset: 11-04-2021 Episodic Residual codes; unclassified (2 sources) Other specified postprocedural states Onset: 03-27-2021 Resolved: 05-05-2021 Episodic Spondylosis; intervertebral disc disorders; other back problems (4 sources) Lumbago with sciatica, left side; Translations: [LUMBAGO WITH SCIATICA LEFT SIDE] Onset: 03-06-2022 Episodic Results Test Name Value Interpretation Reference Range Facility Adilson Kitfarhat 10-18-2022 Adilson Kit Forwarded to [facility] Comment on above: Performed By: #### N ATER #### [facility] [place] [address] Tapering Machine Operator: Neeraj Cabrera MD ER URINE PROFILEon 3 Bilirubin Ql (U) Negative Normal NEGATIVE [facility] Comment on above: Performed By: #### Jackelyn BOTELLO UMICRO ####[facility] [address] [address]Dr. Jc Norris Clarity (U) CLEAR Normal CLEAR [facility] Comment on above: Performed By: #### Jackelyn BOTELLO UMICRO ####[facility] [address] [address]Dr. Jc Norris Color (U) LT. YELLOW Normal YELLOW [facility] Comment on above: Performed By: #### Jackelyn BOTELLO UMICRO ####[facility] [address] [place], [place] [address]Dr. Kathleenkendall Norris ERUAHD A micrscopic examination will be performed if indicated. Normal [facility] Comment on above: Performed By: #### Jackelyn BOTELLO UMICRO ####[facility] [address] [place], [place] [address]Dr. Kathleenkendall Jr Glucose Ql (U) Negative Normal NEGATIVE [facility] Comment on above: Performed By: #### Jackelyn BOTELLO UMICRO ####[facility] [address] [place], [place] [address]Dr. Jc Norris Hemoglobin Ql (U) MODERATE Abnormal NEGATIVE [facility] Comment on above: Performed By: #### Jackelyn BOTELLO UMICRO ####[facility] [address] [place], [place] [address]Dr. Jc Norris Ketones Ql (U) Negative Normal NEGATIVE [facility] Comment on above: Performed By: #### Jackelyn BOTELLO UMICRO ####[facility] [address] [address]Dr. Jc Norris LEUKOCYTES SMALL Abnormal NEGATIVE [facility] Comment on above: Performed By: #### Jackelyn BOTELLO UMICRO ####[facility] [address] [address]Dr. Kathleenkendall Jr Nitrite Ql (U) Negative Normal NEGATIVE [facility] Comment on above: Performed By: #### Jackelyn BOTELLO UMICRO ####[facility] [address] [address]Dr. Jc Jr pH (U) 6.5 [pH] Normal 5-9 [facility] Comment on above: Performed By: #### IVET OSBORN ####[facility] [address] [address]Dr. Jc Jr SPEC GRAVITY 1.020 Normal 1.005-<=1.02 5 [facility] Comment on above: Performed By: #### IVET OSBORN ####[facility] [address] [place], [place] [address]Dr. Jc Norris UA PROTEIN Negative Normal NEGATIVE/ TRACE [facility] Comment on above: Performed By: #### IVET OSBORN ####[facility] [address] [place], [place] [address]Dr. Jc Norris UR MICRO IND INDICATED Normal [facility] Comment on above: Performed By: #### IVET OSBORN ####[facility] [address] [place], [place] [address]Dr. Jc Norris Urobilinogen Qn (U) 0.2 {Diamond'U}/dL Normal 0.2 - 1. 0 [facility] Comment on above: Performed By: #### IVET OSBORN ####[facility] [address] [place], [place] [address]Dr. Jc Norris URINE MICROSCOPIC ONLYon BACTERIA TRACE Abnormal NONE SEEN [facility] Comment on above: Performed By: #### IVET OSBORN ####[facility] [address] [place], [place] [address]Dr. Jc Norris Bacteria identified Cx Nom (U) NOT INDICATED Normal [facility] Comment on above: Performed By: #### IVET OSBORN ####[facility] [address] [place], [place] [address]Dr. Jc Norris CAST NONE SEEN Normal NONE SEEN [facility] Comment on above: Performed By: #### IVET OSBORN ####[facility] [address] [address]Dr. Jc Norris Crystals LM Nom (Urine sed) NONE SEEN Normal NONE SEEN [facility] Comment on above: Performed By: #### SHIMA OSBORNRO ####[facility] [address] [address]Dr. Jc Norris Epithelial cells LM Ql (Urine sed) MODERATE Abnormal NONE SEEN /RARE [facility] Comment on above: Performed By: #### SHIMA OSBORNRO ####[facility] [address] [address]Dr. Jc Norris MUCOUS TRACE Abnormal NONE SEEN [facility] Comment on above: Performed By: #### SHIMA OSBORNRO ####[facility] [address] [address]Dr. Jc Norris RBC 2-5 Abnormal 0-2 [facility] Comment on above: Performed By: #### SHIMA OSBORNRO ####[facility] [address] [address]Dr. Jc Norris WBC 2-5 Abnormal NONE SEEN [facility] Comment on above: Performed By: #### SHIMA OSBORNRO ####[facility] [address] [place] [address]DrEric Norris HEP B SURFACE ANTIGEN SCREEN on 07-01-2022 HBsAg Screen Negative Normal Negative [facility] Comment on above: Performed By: #### C MP, LIPID, TSH, T7, BNP #### [facility] [address] [address] [address] Jc Norris HEPATITIS C VIRUS AB W/ REFL EX QUANTon 07-01-2022 HCV AB Non-Reactive Normal Non Reactive [facility] Comment on above: Performed By: #### H CVPCRR ####[facility] [address] [address]DrEric Norris Interpretation: Comment Normal The [facility] Comment on above: Result Comment: Not infected with HCV unless early or acute infection is suspected (which may be delayed in an immunocompromised individual), or other evidence exists to indicate HCV infection. Performed By: #### H CVPCRR ####[facility] [address] [id number]. Jc Norris RPR QUANTon 07-01-2022 Rapid Plasma Reagin, Quant Non-Reactive Normal NonRea<1:1 [facility] Comment on above: Result Comment: Nikky chavis Note: This test does not meet current guidelines for screening and diagnosis of syphilis. This test is intended for following treatment response in patients being treated for syphilis infection. To screen for syphilis infection, a reflex cascade that includes both RPR and a treponema-specific assay should be utilized, such as Treponema pallidum (Syphilis) Screening [place] (129552) or Rapid Plasma Reagin (RPR) Test With Reflex to Quantitative RPR and Confirmatory Treponema pallidum Antibodies (314625). Performed By: #### R PRQ ####[facility] [address] [address]Dr. Jc Norris RUBELLA AB IGGon 07-01-2022 Rubella Antibodies, IgG 3.13 index Normal Immune >0.99 [facility] Comment on above: Result Comment: Non- immune <0.90 Equivocal 0.90 - 0.99 Immune >0.99 Performed By: #### C BC #### [facility] [address] [address] [address] Jc Norris BOX TEST SENT OUTon 07-01-19 SENT TO REF LAB 06/30/22 Normal The [facility] Comment on above: Performed By: #### C MP, LIPID, TSH, T7, BNP #### [facility] [address] [address] [address] Jc Norris CBC AUTO DIFFon 06-30-2022 BASO # 0.0 103/ul Normal 0.0-0.1 [facility] Comment on above: Performed By: #### C BC #### [facility] [address] [place] [address] Dr. Jc Norris Basophils/100 WBC (Bld) 0.4 % Normal 0.2-2.0 [facility] Comment on above: Performed By: #### C BC #### [facility] [address] [place] [address] Dr. Jc Norris EO # 0.1 103/ul Normal 0.0-0.7 [facility] Comment on above: Performed By: #### C BC #### [facility] [address] [place] [address] Dr. Jc Norris Eosinophils/100 WBC (Bld) 0.7 % Critically low 0.9-7.0 [facility] Comment on above: Performed By: #### C BC #### [facility] [address] [place] [address] Dr. Jc Norris Erythrocyte distribution width (RBC) [Ratio] 12.6 % Normal 11.0-15.0 [facility] Comment on above: Performed By: #### C BC #### [facility] [address] [place] [address] Dr. Jc Norris Hematocrit (Bld) [Volume fraction] 40.1 % Normal 36.0-48.0 [facility] Comment on above: Performed By: #### C BC #### [facility] [address] [place] [address] Dr. Jc Norris Hemoglobin (Bld) [Mass/Vol] 13.2 g/dL Normal 12.0-16.0 [facility] Comment on above: Performed By: #### C BC #### [facility] [address] [place] [address] Dr. Jc Norris IG # 0.05 10e3/ul Critically high 0.00-0.03 [facility] Comment on above: Performed By: #### C BC #### [facility] [address] [place] [address] Dr. Jc Norris IG % 0.6 % Critically high 0.0-0.5 The [facility] Comment on above: Performed By: #### C BC #### [facility] [address] [place] [address] Dr. Jc Norris LYMPH # 1.3 103/ul Normal 1.2-3.8 [facility] Comment on above: Performed By: #### C BC #### [facility] [address] [place] [address] Dr. Jc Norris Lymphocytes/100 WBC (Bld) 16.3 % Critically low 20.5-60.0 [facility] Comment on above: Performed By: #### C BC #### [facility] [address] [place] [address] Dr. Jc Norris MANUAL DIFF REQ NO Normal [facility] Comment on above: Performed By: #### C BC #### [facility] [address] [place] [address] Dr. Jc Norris MCH (RBC) [Entitic mass] 28.1 pg Normal 26.7-34.0 [facility] Comment on above: Performed By: #### C BC #### [facility] [address] [place] [address] Dr. cJ Norris MCHC (RBC) [Mass/Vol] 32.9 g/dL Normal 29.9-35.2 [facility] Comment on above: Performed By: #### C BC #### [facility] [address] [place] [address] Dr. Jc Norris MCV (RBC) [Entitic vol] 85.5 fL Normal 81.0-99.0 [facility] Comment on above: Performed By: #### C BC #### [facility] [address] [place] [address] Dr. Jc Norris MONO # 0.5 103/ul Normal 0.3-0.8 [facility] Comment on above: Performed By: #### C BC #### [facility] [address] [place] [address] Dr. Jc Norris Monocytes/100 WBC (Bld) 6.4 % Normal 1.7-12.0 [facility] Comment on above: Performed By: #### C BC #### [facility] [address] [place] [address] Dr. Jc Norris NEUT # 6.1 103/ul Normal 1.4-6.5 [facility] Comment on above: Performed By: #### C BC #### [facility] [address] [place] [address] Dr. Jc Norris Neutrophils/100 WBC (Bld) 75.6 % Critically high 43.0-75.0 [facility] Comment on above: Performed By: #### C BC #### [facility] [address] [address] [address] Jc Norris Platelet mean volume (Bld) [Entitic vol] 10.7 fL Normal 9.5-13.5 [facility] Comment on above: Performed By: #### C BC #### [facility] [address] [address] [address] Jc Norris PLT 213 103/ul Normal 150-450 [facility] Comment on above: Performed By: #### C BC #### [facility] [address] [place] [address] Dr. Jc Norris RBC 4.69 106/ul Normal 4.20-5.40 [facility] [facility] Comment on above: Performed By: #### C BC #### [facility] [address] [place] [address] Dr. Jc Norris WBC 8.1 103/ul Normal 4.0-11.0 [facility] Comment on above: Performed By: #### C BC #### [facility] [address] [place] [address] Dr. Jc Norris CULTURE URINEon 06-30-2022 CULTURE URINE Culture Observations : NO GROWTH. Normal [facility] Comment on above: Performed By: #### U RCX ####[facility] [address] [place] [address]Dr. Jc Norris GLYCOHEMOGLOBIN A1Con 2022 ADA RECOMMENDATION SEE BELOW Normal [facility] Comment on above: Result Comment: ADA RECOMMENDED LIMIT 4.0 - 6.0 ADA THERAPEUTIC TARGET < 7.0 ACTION SUGGESTED > 7.0 Performed By: #### C MP, LIPID, TSH, T7, BNP #### [facility] [address] [place] [address] Dr. Jc Norris Glucose [Mass/Vol] 105 mg/dL Normal [facility] Comment on above: Performed By: #### C MP, LIPID, TSH, T7, BNP #### [facility] [address] [address] [address] Jc Norris HbA1c (Bld) [Mass fraction] 5.3 % Normal 4.5-6.2 [facility] Comment on above: Performed By: #### C MP, LIPID, TSH, T7, BNP #### [facility] [address] [place], [place] [address] Dr. Jc Norris TSHon 06-30-2022 TSH 1.580 uIU/mL Normal 0.358-3.740 [facility] Comment on above: Performed By: #### C MP, LIPID, TSH, T7, BNP #### [facility] [address] [address] [address] Jc Norris TYPE AND SCREENon 06-30-2022 TYPE AND SCREEN Negative Normal [facility] Comment on above: Performed By: #### T NS ####[facility] [address] [place] [address]Dr. Jc Norris US PREG TVon 06-28-2022 US PREG TV EXAMINATION: US PREG TV HISTORY: Missed period COMPARISON: Ultrasound transvaginal 06/13/2022 FINDINGS: GESTATIONAL SAC: Present and normal appearing. YOLK SAC: Present and normal appearing. POLE: Present and normal appearing. CARDIAC: Present. UTERUS: Normal size and appearance. OVARIES: Right: Normal. Left: Normal. CERVIX: 4.4 cm in length and closed. CUL-DE-SAC: Normal. OTHER: None. AGE BY LMP: 9 weeks 4 days LIZBET BY LMP: 01/27/2023 AGE BY US CRL: 9 weeks 5 days LIZBET BY US CRL: 01/26/2023 IMPRESSION: 1. Single live intrauterine . 2. No suspicious findings on today's study. Electronically authenticated by: HEATHER ANDREWS Date: 2022-06-28 15:19 Normal [facility] ABO AND RH TYPEon 06-13-2022 ABO and Rh group Nom (Bld) ABO Rh Typing O Rh Positive Normal [facility] Comment on above: Performed By: #### A BORH ####[facility] [address] [place] [address]Dr. Jc Norris CBC AUTO DIFFon 06-13-2022 BASO # 0.0 103/ul Normal 0.0-0.1 [facility] Comment on above: Performed By: #### C BC #### [facility] [address] [place] [address] Dr. Jc Norris Basophils/100 WBC (Bld) 0.2 % Normal 0.2-2.0 [facility] Comment on above: Performed By: #### C BC #### [facility] [address] [place] [address] Dr. Jc Norris EO # 0.1 103/ul Normal 0.0-0.7 [facility] Comment on above: Performed By: #### C BC #### [facility] [address] [place] [address] Dr. Jc Norris Eosinophils/100 WBC (Bld) 0.5 % Critically low 0.9-7.0 [facility] Comment on above: Performed By: #### C BC #### [facility] [address] [place] [address] Dr. Jc Norris Erythrocyte distribution width (RBC) [Ratio] 12.4 % Normal 11.0-15.0 [facility] Comment on above: Performed By: #### C BC #### [facility] [address] [place] [address] Dr. Jc Norris Hematocrit (Bld) [Volume fraction] 41.0 % Normal 36.0-48.0 [facility] Comment on above: Performed By: #### C BC #### [facility] [address] [place] [address] Dr. Jc Norris Hemoglobin (Bld) [Mass/Vol] 13.3 g/dL Normal 12.0-16.0 [facility] Comment on above: Performed By: #### C BC #### [facility] [address] [place] [address] Dr. Jc Norris IG # 0.05 10e3/ul Critically high 0.00-0.03 [facility] Comment on above: Performed By: #### C BC #### [facility] [address] [place] [address] Dr. Jc Norris IG % 0.5 % Normal 0.0-0.5 [facility] Comment on above: Performed By: #### C BC #### [facility] [address] [place] [address] Dr. Jc Norris LYMPH # 1.3 103/ul Normal 1.2-3.8 [facility] Comment on above: Performed By: #### C BC #### [facility] [address] [place] [address] Dr. Jc Norris Lymphocytes/100 WBC (Bld) 12.8 % Critically low 20.5-60.0 [facility] Comment on above: Performed By: #### C BC #### [facility] [address] [place] [address] Dr. Jc Norris MANUAL DIFF REQ NO Normal [facility] Comment on above: Performed By: #### C BC #### [facility] [address] [place] [address] Dr. Jc Norris MCH (RBC) [Entitic mass] 27.9 pg Normal 26.7-34.0 [facility] Comment on above: Performed By: #### C BC #### [facility] [address] [place] [address] Dr. Jc Norris MCHC (RBC) [Mass/Vol] 32.4 g/dL Normal 29.9-35.2 [facility] Comment on above: Performed By: #### C BC #### [facility] [address] [place] [address] Dr. Jc Norris MCV (RBC) [Entitic vol] 86.1 fL Normal 81.0-99.0 [facility] Comment on above: Performed By: #### C BC #### [facility] [address] [place] [address] Dr. Jc Norris MONO # 0.6 103/ul Normal 0.3-0.8 [facility] Comment on above: Performed By: #### C BC #### [facility] [address] [place] [address] Dr. Jc Norris Monocytes/100 WBC (Bld) 6.4 % Normal 1.7-12.0 [facility] Comment on above: Performed By: #### C BC #### [facility] [address] [place] [address] [address] Jc Norris NEUT # 7.9 103/ul Critically high 1.4-6.5 [facility] Comment on above: Performed By: #### C BC #### [facility] [address] [place] [address] [address] Jc Norris Neutrophils/100 WBC (Bld) 79.6 % Critically high 43.0-75.0 [facility] Comment on above: Performed By: #### C BC #### [facility] [address] [address] [address] Jc Norris Platelet mean volume (Bld) [Entitic vol] 11.1 fL Normal 9.5-13.5 [facility] Comment on above: Performed By: #### C BC #### [facility] [address] [place] [address] [address] Jc Norris PLT 232 103/ul Normal 150-450 [facility] Comment on above: Performed By: #### C BC #### [facility] [address] [place] [address] [address] Jc Norris RBC 4.76 106/ul Normal 4.20-5.40 [facility] Comment on above: Performed By: #### C BC #### [facility] [address] [place] [address] [address] Jc Norris WBC 9.9 103/ul Normal 4.0-11.0 [facility] Comment on above: Performed By: #### C BC #### [facility] [address] [place] [address] [address] Jc Norris CULTURE URINEon 06-13-2022 CULTURE URINE Culture Observations : LIGHT GROWTH OF MIXED GENITAL GENIE. NO POTENTIAL PATHOGENS SEEN. Normal [facility] Comment on above: Performed By: #### U RCX ####[facility] [address] [place] [address]Dr. Jc Norris ER URINE PROFILEon 3 Bilirubin Ql (U) Negative Normal NEGATIVE [facility] Comment on above: Performed By: #### U MICRO, ERUR, PREGU ####[facility] [address] [place] [address]Dr. Jc Norris Clarity (U) CLEAR Normal CLEAR [facility] Comment on above: Performed By: #### U MICRO, ERUR, PREGU ####[facility] [address] [place] [address]Dr. Jc Norris Color (U) LT. YELLOW Normal YELLOW [facility] Comment on above: Performed By: #### U MICRO, ERUR, PREGU ####[facility] [address] [place] [address]Dr. Kathleenkendall Norris ERUAHD A micrscopic examination will be performed if indicated. Normal [facility] Comment on above: Performed By: #### U MICRO, ERUR, PREGU ####[facility] [address] [place] [address]Dr. Jc Norris Glucose Ql (U) Negative Normal NEGATIVE [facility] Comment on above: Performed By: #### U MICRO, ERUR, PREGU ####[facility] [address] [place] [address]Dr. Jc Norris Hemoglobin Ql (U) Negative Normal NEGATIVE [facility] Comment on above: Performed By: #### U MICRO, ERUR, PREGU ####[facility] [address] [place] [address]Dr. Jc Norris Ketones Ql (U) Negative Normal NEGATIVE [facility] Comment on above: Performed By: #### U MICRO, ERUR, PREGU ####[facility] [address] [place] [address]Dr. Kathleenkendall Norris LEUKOCYTES MODERATE Abnormal NEGATIVE [facility] Comment on above: Performed By: #### U MICRO, ERUR, PREGU ####[facility] [address] [place] [address]Dr. Jc Norris Nitrite Ql (U) Negative Normal NEGATIVE [facility] Comment on above: Performed By: #### U MICRO, ERUR, PREGU ####[facility] [address] [place] [address]Dr. Jc Norris pH (U) 5.0 [pH] Normal 5-9 [facility] Comment on above: Performed By: #### U MICRO, ERUR, PREGU ####[facility] [address] [place] [address]Dr. Jc Norris SPEC GRAVITY 1.010 Normal 1.005-<=1.02 5 [facility] Comment on above: Performed By: #### U MICRO, ERUR, PREGU ####[facility] [address] [place] [address]Dr. Jc Norris UA PROTEIN Negative Normal NEGATIVE/ TRACE [facility] Comment on above: Performed By: #### U MICRO, ERUR, PREGU ####[facility] [address] [place] [address]Dr. Jc Norris UR MICRO IND INDICATED Normal [facility] Comment on above: Performed By: #### U MICRO, ERUR, PREGU ####[facility] [address] [place] [address]Dr. Jc Norris Urobilinogen Qn (U) 0.2 {Diamond'U}/dL Normal 0.2 - 1. 0 [facility] Comment on above: Performed By: #### U MICRO, ERUR, PREGU ####[facility] [address] [place] [address]Dr. Jc Norris PREG QUANT HCGon 06-13-2022 HCG QUANT 45788 mIU/mL Normal [facility] Comment on above: Performed By: #### C BC #### [facility] [address] [place] [address] [address] Jc Norris HCG RANGE SEE BELOW Normal [facility] Comment on above: Result Comment: 5-50 0.2-1 WEEK 50-500 1-2 WEEKS 100-5,000 2-3 WEEKS 500-10,000 3-4 WEEKS 1,000-50,000 4-5 WEEKS 10,000-100,000 5-6 WEEKS 15,000-200,000 6-8 WEEKS 10,000-100,000 2-3 MONTHS Performed By: #### C BC #### [facility] [address] [place] [address] [address] Jc Norris URon 06-13-2022 , QUAL Positive Abnormal NEGATIVE [facility] Comment on above: Performed By: #### U MICRO, ERUR, PREGU ####[facility] [address] [place], [place] [address]Dr. Jc Norris PROF 14(COMP METB)on 023 Albumin [Mass/Vol] 3.6 g/dL Normal 3.4-5.0 [facility] Comment on above: Performed By: #### C BC #### [facility] [address] [place] [address] Dr. Jc Norris Albumin/Globulin [Mass ratio] 1.0 {ratio} Normal [facility] Comment on above: Performed By: #### C BC #### [facility] [address] [place] [address] Dr. Jc Norris ALP [Catalytic activity/Vol] 84 U/L Normal 46-116 [facility] Comment on above: Performed By: #### C BC #### [facility] [address] [place] [address] [address] Jc Norris ALT [Catalytic activity/Vol] 18 U/L Normal 14-59 [facility] Comment on above: Performed By: #### C BC #### [facility] [address] [place] [address] Dr. Jc Norris Anion gap [Moles/Vol] 10.9 mmol/L Normal [facility] Comment on above: Performed By: #### C BC #### [facility] [address] [place] [address] [address] Jc Norris AST [Catalytic activity/Vol] 13 U/L Critically low 15-37 [facility] Comment on above: Performed By: #### C BC #### [facility] [address] [place] [address] [address] Jc Norris Bilirubin [Mass/Vol] 0.2 mg/dL Normal 0.2-1.0 [facility] Comment on above: Performed By: #### C BC #### [facility] [address] [place] [address] [address] Jc Norris Calcium [Mass/Vol] 9.1 mg/dL Normal 8.5-10.1 [facility] Comment on above: Performed By: #### C BC #### [facility] [address] [place] [address] [address] Jc Norris Chloride [Moles/Vol] 102 mmol/L Normal 98-107 [facility] Comment on above: Performed By: #### C BC #### [facility] [address] [place] [address] [address] Jc Norris CO2 [Moles/Vol] 25.8 mmol/L Normal 21.0-32.0 [facility] Comment on above: Performed By: #### C BC #### [facility] [address] [place] [address] Dr. Jc Norris Creatinine [Mass/Vol] 0.52 mg/dL Critically low 0.55-1.02 [facility] Comment on above: Performed By: #### C BC #### [facility] [address] [place] [address] Dr. Jc Norris EGFR-AF CITIZEN OF [place] >60 Normal >=60 [facility] Comment on above: Performed By: #### C BC #### [facility] [address] [place] [address] Dr. Jc Norris EGFR-NON AF CITIZEN OF [place] >60 Normal >=60 [facility] Comment on above: Performed By: #### C BC #### [facility] [address] [place] [address] Dr. Jc Norris Globulin (S) [Mass/Vol] 3.5 g/dL Normal [facility] Comment on above: Performed By: #### C BC #### [facility] [address] [place] [address] Dr. Jc Norris Glucose [Mass/Vol] 104 mg/dL Normal 74-106 [facility] Comment on above: Performed By: #### C BC #### [facility] [address] [place] [address] Dr. Jc Norris Potassium [Moles/Vol] 3.7 mmol/L Normal 3.5-5.1 [facility] Comment on above: Performed By: #### C BC #### [facility] [address] [place] [address] [address] Jc Norris Protein [Mass/Vol] 7.1 g/dL Normal 6.4-8.2 [facility] Comment on above: Performed By: #### C BC #### [facility] [address] [place] [address] [address] Jc Norris Sodium [Moles/Vol] 135 mmol/L Critically low 136-145 [facility] Comment on above: Performed By: #### C BC #### [facility] [address] [place] [address] [address] Jc Norris Urea nitrogen [Mass/Vol] 8.0 mg/dL Normal 7.0-18.0 [facility] Comment on above: Performed By: #### C BC #### [facility] [address] [place] [address] [address] Jc Norris Urea nitrogen/Creatinine [Mass ratio] 15.4 mg/mg Normal [facility] Comment on above: Performed By: #### C BC #### [facility] [address] [place] [address] [address] Jc Norris URINE MICROSCOPIC ONLYon BACTERIA NONE SEEN Normal NONE SEEN [facility] Comment on above: Performed By: #### U MICRO, ERUR, PREGU ####[facility] [address] [place] [address]DrEric Norris Bacteria identified Cx Nom (U) INDICATED Normal [facility] Comment on above: Performed By: #### U MICRO, ERUR, PREGU ####[facility] [address] [place] [address]Dr. Jc Norris CAST NONE SEEN Normal NONE SEEN [facility] Comment on above: Performed By: #### U MICRO, ERUR, PREGU ####[facility] [address] [place] [address]Dr. Jc Norris Crystals LM Nom (Urine sed) NONE SEEN Normal NONE SEEN [facility] Comment on above: Performed By: #### U MICRO, ERUR, PREGU ####[facility] [address] [place] [address]Dr. Jc Norris Epithelial cells LM Ql (Urine sed) FEW Abnormal NONE SEEN /RARE [facility] Comment on above: Performed By: #### U MICRO, ERUR, PREGU ####[facility] [address] [place] [address]Dr. Jc Norris MUCOUS TRACE Abnormal NONE SEEN [facility] Comment on above: Performed By: #### U MICRO, ERUR, PREGU ####[facility] [address] [place] [address]Dr. Jc Norris RBC NONE SEEN Abnormal 0-2 [facility] Comment on above: Performed By: #### U MICRO, ERUR, PREGU ####[facility] [address] [place], [place] [address]Dr. Jc Norris WBC 10-20 Abnormal NONE SEEN [facility] Comment on above: Performed By: #### U MICRO, ERUR, PREGU ####[facility] [address] [place], [place] [address]Dr. Jc Norris US PREG TVon 06-13-2022 US PREG TV EXAMINATION: US PREG TV HISTORY: Abnormal vaginal bleeding COMPARISON: 05/03/2022 FINDINGS: Puckett intrauterine gestation Gestational sac: 1.37 cm, 5 weeks 4 days CRL: 1.24 cm, 7 weeks 3 days Yolk sac: 2.5 mm Heart rate: 156 bpm Uterus is normal in appearance, anteverted The ovaries are normal in appearance. Right ovarian corpus luteal cyst Cervix: Closed, 3.5 cm Clinical age: 7 weeks 3 days Clinical LIZBET: 01/27/2023 Ultrasound age: 7 weeks 3 days Ultrasound LIZBET: 01/27/2023 IMPRESSION: Small gestational sac for crown-rump length No definite perigestational hemorrhage observed Electronically authenticated by: NILDA HANDLEY Date: 2022-06-13 14:30 Normal [facility] PREG QUANT HCGon 06-02-2022 HCG QUANT 5289 mIU/mL Normal [facility] Comment on above: Performed By: #### C BC #### [facility] [address] [place] [address] [address] Jc Norris HCG RANGE SEE BELOW Normal [facility] Comment on above: Result Comment: 5-50 0.2-1 WEEK 50-500 1-2 WEEKS 100-5,000 2-3 WEEKS 500-10,000 3-4 WEEKS 1,000-50,000 4-5 WEEKS 10,000-100,000 5-6 WEEKS 15,000-200,000 6-8 WEEKS 10,000-100,000 2-3 MONTHS Performed By: #### C BC #### [facility] [address] [place] [address] Dr. Jc Norris PREG QUANT HCGon 05-31-2022 HCG QUANT 3671 mIU/mL Normal [facility] Comment on above: Performed By: #### C MP, LIPID, TSH, T7, BNP #### [facility] [address] [place] [address] Dr. Jc Norris HCG RANGE SEE BELOW Normal [facility] Comment on above: Result Comment: 5-50 0.2-1 WEEK 50-500 1-2 WEEKS 100-5,000 2-3 WEEKS 500-10,000 3-4 WEEKS 1,000-50,000 4-5 WEEKS 10,000-100,000 5-6 WEEKS 15,000-200,000 6-8 WEEKS 10,000-100,000 2-3 MONTHS Performed By: #### C MP, LIPID, TSH, T7, BNP #### [facility] [address] [place] [address] Dr. Jc Norris PREG QUANT HCGon 05-29-2022 HCG QUANT 1965 mIU/mL Normal [facility] Comment on above: Performed By: #### P REGQNT ####[facility] [address] [place] [address]Dr. Jc Norris HCG RANGE SEE BELOW Normal [facility] Comment on above: Result Comment: 5-50 0.2-1 WEEK 50-500 1-2 WEEKS 100-5,000 2-3 WEEKS 500-10,000 3-4 WEEKS 1,000-50,000 4-5 WEEKS 10,000-100,000 5-6 WEEKS 15,000-200,000 6-8 WEEKS 10,000-100,000 2-3 MONTHS Performed By: #### P REGQNT ####[facility] [address] [place], [place] [address]Ds. Jc Norris US PELVIS AND TRANSVAGon US PELVIS AND TRANSVAG EXAMINATION: US PELVIS AND TRANSVAG HISTORY: Dysmenorrhea COMPARISON: No relevant comparison available. FINDINGS: The uterus is normal in size, contour and echotexture, anteverted. Uterus measures 8.2 x 3.6 x 5.0 cm. No focal myometrial mass. The endometrium measures 5.6 mm, normal. The right ovary measures 2.3 x 2.7 x 3.1 cm. Normal color and Doppler flow. Area of anechoic echogenicity measuring 1.8 cm, simple cyst. The left ovary is normal in appearance measuring 2.4 x 2.5 2.0 cm. Normal color Doppler flow. IMPRESSION: 1.8 cm right ovarian simple cyst Electronically authenticated by: NILDA HANDLEY Date: 2022-05-04 14:31 Normal [facility] CULTURE URINEon 04-07-2022 CULTURE URINE Isolate 1 Escherichia coli >100,000 cfu/mL of ORGANISM 1 Escherichia coli ANTIBIOTIC M.I.C RX STATUS Ampicillin >=32 R F Ampicillin/Sulbactam 16 I F Piperacillin/Tazobact am <=4 S F Cefazolin <=4 S F Ceftazidime <=1 S F Ceftriaxone <=1 S F Ertapenem <=0.5 S F Imipenem <=0.25 S F Amikacin <=2 S F Gentamicin >=16 R F Tobramycin 8 I F Ciprofloxacin <=0.25 S F Levofloxacin 1 S F Nitrofurantoin <=16 S F Trimethoprim/Sulfamet hoxazole >=320 R F Normal [facility] Comment on above: Performed By: #### U RCX ####[facility] [address] [place], [place] [address]Re. Jc Norris ER URINE PROFILEon 3 Bilirubin Ql (U) Negative Normal NEGATIVE [facility] Comment on above: Performed By: #### C MP, LIPID, TSH, T7, BNP #### [facility] [address] [address] [address] Jc Norris Clarity (U) SL CLOUDY Abnormal CLEAR [facility] Comment on above: Performed By: #### C MP, LIPID, TSH, T7, BNP #### [facility] [address] [place] [address] [address] Jc Norris Color (U) LT. YELLOW Normal YELLOW [facility] Comment on above: Performed By: #### C MP, LIPID, TSH, T7, BNP #### [facility] [address] [place] [address] [address] Jc Norris ERUFRANCOISE A micrscopic examination will be performed if indicated. Normal [facility] Comment on above: Performed By: #### C MP, LIPID, TSH, T7, BNP #### [facility] [address] [address] [address] Jc Norris Glucose Ql (U) Negative Normal NEGATIVE [facility] Comment on above: Performed By: #### C MP, LIPID, TSH, T7, BNP #### [facility] [address] [address] [address] Jc Norris Hemoglobin Ql (U) MODERATE Abnormal NEGATIVE [facility] Comment on above: Performed By: #### C MP, LIPID, TSH, T7, BNP #### [facility] [address] [address] [address] Jc Norris Ketones Ql (U) Negative Normal NEGATIVE [facility] Comment on above: Performed By: #### C MP, LIPID, TSH, T7, BNP #### [facility] [address] [place] [address] [address] Jc Norris LEUKOCYTES SMALL Abnormal NEGATIVE [facility] Comment on above: Performed By: #### C MP, LIPID, TSH, T7, BNP #### [facility] [address] [place] [address] [address] Jc Norris Nitrite Ql (U) Positive Abnormal NEGATIVE [facility] Comment on above: Performed By: #### C MP, LIPID, TSH, T7, BNP #### [facility] [address] [place] [address] [address] Jc Norris pH (U) 5.5 [pH] Normal 5-9 [facility] Comment on above: Performed By: #### C MP, LIPID, TSH, T7, BNP #### [facility] [address] [place] [address] Dr. Jc Norris SPEC GRAVITY 1.025 Normal 1.005-<=1.02 5 [facility] Comment on above: Performed By: #### C MP, LIPID, TSH, T7, BNP #### [facility] [address] [place] [address] Dr. Jc Norris UA PROTEIN Negative Normal NEGATIVE/ TRACE [facility] Comment on above: Performed By: #### C MP, LIPID, TSH, T7, BNP #### [facility] [address] [place] [address] Dr. Jc Norris UR MICRO IND INDICATED Normal [facility] Comment on above: Performed By: #### C MP, LIPID, TSH, T7, BNP #### [facility] [address] [place] [address] Dr. Jc Norris Urobilinogen Qn (U) 0.2 {Diamond'U}/dL Normal 0.2 - 1. 0 [facility] Comment on above: Performed By: #### C MP, LIPID, TSH, T7, BNP #### [facility] [address] [place] [address] Dr. Jc Norris URon 04-05-2022 , QUAL Negative Normal NEGATIVE The [facility] Comment on above: Performed By: #### C MP, LIPID, TSH, T7, BNP #### [facility] [address] [place] [address] Dr. Jc Norris URINE MICROSCOPIC ONLYon BACTERIA MODERATE Abnormal NONE SEEN [facility] Comment on above: Performed By: #### C MP, LIPID, TSH, T7, BNP #### [facility] [address] [place] [address] Dr. Jc Norris Bacteria identified Cx Nom (U) INDICATED Normal [facility] Comment on above: Performed By: #### C MP, LIPID, TSH, T7, BNP #### [facility] [address] [address] [address] Jc Norris CAST NONE SEEN Normal NONE SEEN [facility] Comment on above: Performed By: #### C MP, LIPID, TSH, T7, BNP #### [facility] [address] [address] [address] Jc Norris Crystals LM Nom (Urine sed) NONE SEEN Normal NONE SEEN [facility] Comment on above: Performed By: #### C MP, LIPID, TSH, T7, BNP #### [facility] [address] [place] [address] Dr. Jc Norris Epithelial cells LM Ql (Urine sed) FEW Abnormal NONE SEEN /RARE [facility] Comment on above: Performed By: #### C MP, LIPID, TSH, T7, BNP #### [facility] [address] [place] [address] Dr. Jc Norris MUCOUS TRACE Abnormal NONE SEEN [facility] Comment on above: Performed By: #### C MP, LIPID, TSH, T7, BNP #### [facility] [address] [place] [address] Dr. Jc Norris RBC 50-75 Abnormal 0-2 [facility] Comment on above: Performed By: #### C MP, LIPID, TSH, T7, BNP #### [facility] [address] [place] [address] Dr. Jc Norris WBC 75-100 Abnormal NONE SEEN [facility] Comment on above: Performed By: #### C MP, LIPID, TSH, T7, BNP #### [facility] [address] [place] [address] Dr. Jc Norris MRI LSPINE WO CONon 03-07-19 23 MRI LSPINE WO CON EXAMINATION: MRI LSPINE WO CON HISTORY: Lumbago with sciatica COMPARISON: No relevant comparison available. TECHNIQUE: A variety of imaging planes and parameters were utilized for visualization of suspected pathology. FINDINGS: For the purposes of numbering, sagittal T2 image # 8 extends from the T10-T11 vertebral body superiorly to the S3 level inferiorly. PARASPINAL AREA: Normal with no visible mass. BONES: Normal alignment with no acute fracture, dislocation or bone edema CORD/CAUDA EQUINA: Normal caliber, contour, and signal intensity. DISC LEVELS: 12-L1: No significant disc/facet abnormality, spinal stenosis, or foraminal stenosis. L1-L2: No significant disc/facet abnormality, spinal stenosis, or foraminal stenosis. L2-L3: No significant disc/facet abnormality, spinal stenosis, or foraminal stenosis. L3-L4: No significant disc/facet abnormality, spinal stenosis, or foraminal stenosis. L4-L5: No significant disc/facet abnormality, spinal stenosis, or foraminal stenosis. L5-S1: No significant disc/facet abnormality, spinal stenosis, or foraminal stenosis. IMPRESSION: Normal exam Electronically authenticated by: NILDA HANDLEY Date: 2022-03-07 06:17 Normal [facility] CARDIAC KERI 3-6on 2 CK [Catalytic activity/Vol] 64 U/L Normal 26-192 [facility] Comment on above: Performed By: #### C MP, LIPID, TSH, T7, BNP #### [facility] [address] [place] [address] Dr. Jc Norris CK.MB [Mass/Vol] 0.81 ng/mL Normal <=3.60 [facility] Comment on above: Performed By: #### C MP, LIPID, TSH, T7, BNP #### [facility] [address] [place] [address] Dr. Jc Norris HSTROP 4.3 pg/mL Normal 4.0-51.3 [facility] Comment on above: Result Comment: CUT- OFF POINTS HAVE BEEN ESTABLISHED BASED ON THE FOURTH UNIVERSAL DEFINITIONS OF MYOCARDIAL INFARCTION. THE UPPER REFERENCE LIMIT (URL) OF TROPONIN, DEFINED THE 99TH PERCENTILE OF cTnI DISTRIBUTION IN A REFERENCE POPULATION, HAS BEEN CONFIRMED THE DECISION THRESHOLD FOR [place] DIAGNOSIS. Performed By: #### C MP, LIPID, TSH, T7, BNP #### [facility] [address] [place] [address] Dr. Jc Norris CARDIAC KERI ADMITon 022 CK [Catalytic activity/Vol] 80 U/L Normal 26-192 [facility] Comment on above: Performed By: #### C BC #### [facility] [address] [place] [address] Dr. Jc Norris CK.MB [Mass/Vol] 0.89 ng/mL Normal <=3.60 [facility] Comment on above: Performed By: #### C BC #### [facility] [address] [place] [address] Dr. Jc Norris HSTROP 4.3 pg/mL Normal 4.0-51.3 [facility] Comment on above: Result Comment: CUT- OFF POINTS HAVE BEEN ESTABLISHED BASED ON THE FOURTH UNIVERSAL DEFINITIONS OF MYOCARDIAL INFARCTION. THE UPPER REFERENCE LIMIT (URL) OF TROPONIN, DEFINED THE 99TH PERCENTILE OF cTnI DISTRIBUTION IN A REFERENCE POPULATION, HAS BEEN CONFIRMED THE DECISION THRESHOLD FOR TN DIAGNOSIS. Performed By: #### C BC #### [facility] [address] [place] [address] Dr. Jc Norris ANITHA 21 ng/mL Normal 9-82 [facility] Comment on above: Performed By: #### C BC #### [facility] [address] [place] [address] Dr. Jc Norris CBC AUTO DIFFon 12-26-2021 BASO # 0.1 103/ul Normal 0.0-0.1 [facility] Comment on above: Performed By: #### C BC #### [facility] [address] [place] [address] Dr. Jc Norris Basophils/100 WBC (Bld) 0.5 % Normal 0.2-2.0 [facility] Comment on above: Performed By: #### C BC #### [facility] [address] [place] [address] Dr. Jc Norris EO # 0.3 103/ul Normal 0.0-0.7 [facility] Comment on above: Performed By: #### C BC #### [facility] [address] [place] [address] Dr. Jc Norris Eosinophils/100 WBC (Bld) 2.9 % Normal 0.9-7.0 [facility] Comment on above: Performed By: #### C BC #### [facility] [address] [place] [address] Dr. Jc Norris Erythrocyte distribution width (RBC) [Ratio] 12.7 % Normal 11.0-15.0 [facility] Comment on above: Performed By: #### C BC #### [facility] [address] [place] [address] Dr. Jc Norris Hematocrit (Bld) [Volume fraction] 40.1 % Normal 36.0-48.0 [facility] Comment on above: Performed By: #### C BC #### [facility] [address] [place] [address] Dr. Jc Norris Hemoglobin (Bld) [Mass/Vol] 13.4 g/dL Normal 12.0-16.0 [facility] Comment on above: Performed By: #### C BC #### [facility] [address] [place] [address] Dr. Jc Norris IG # 0.03 10e3/ul Normal 0.00-0.03 [facility] Comment on above: Performed By: #### C BC #### [facility] [address] [place] [address] Dr. Jc Norris IG % 0.3 % Normal 0.0-0.5 [facility] Comment on above: Performed By: #### C BC #### [facility] [address] [place] [address] Dr. Jc Norris LYMPH # 3.4 103/ul Normal 1.2-3.8 [facility] Comment on above: Performed By: #### C BC #### [facility] [address] [place] [address] Dr. Jc Norris Lymphocytes/100 WBC (Bld) 35.9 % Normal 20.5-60.0 [facility] Comment on above: Performed By: #### C BC #### [facility] [address] [place] [address] Dr. Jc Norris MANUAL DIFF REQ NO Normal [facility] Comment on above: Performed By: #### C BC #### [facility] [address] [place] [address] Dr. Jc Norris MCH (RBC) [Entitic mass] 28.8 pg Normal 26.7-34.0 [facility] Comment on above: Performed By: #### C BC #### [facility] [address] [address] [address] Jc Norris MCHC (RBC) [Mass/Vol] 33.4 g/dL Normal 29.9-35.2 [facility] Comment on above: Performed By: #### C BC #### [facility] [address] [address] [address] Jc Norris MCV (RBC) [Entitic vol] 86.1 fL Normal 81.0-99.0 [facility] Comment on above: Performed By: #### C BC #### [facility] [address] [address] [address] Jc Norris MONO # 0.9 103/ul Critically high 0.3-0.8 [facility] Comment on above: Performed By: #### C BC #### [facility] [address] [address] [address] Jc Norris Monocytes/100 WBC (Bld) 9.1 % Normal 1.7-12.0 [facility] Comment on above: Performed By: #### C BC #### [facility] [address] [address] [address] Jc Norris NEUT # 4.8 103/ul Normal 1.4-6.5 [facility] Comment on above: Performed By: #### C BC #### [facility] [address] [address] [address] Jc Norris Neutrophils/100 WBC (Bld) 51.3 % Normal 43.0-75.0 [facility] Comment on above: Performed By: #### C BC #### [facility] [address] [address] [address] Jc Norris Platelet mean volume (Bld) [Entitic vol] 10.9 fL Normal 9.5-13.5 [facility] Comment on above: Performed By: #### C BC #### [facility] [address] [address] [address] Jc Norris PLT 256 103/ul Normal 150-450 [facility] Comment on above: Performed By: #### C BC #### [facility] [address] [place] [address] Dr. Jc Norris RBC 4.66 106/ul Normal 4.20-5.40 [facility] Comment on above: Performed By: #### C BC #### [facility] [address] [place] [address] Dr. Jc Norris WBC 9.4 103/ul Normal 4.0-11.0 [facility] Comment on above: Performed By: #### C BC #### [facility] [address] [place] [address] Dr. Jc Norris D-DIMERon 12-26-2021 D-DIMER 0.22 mg/L FEU Normal <=0.59 [facility] Comment on above: Performed By: #### C BC #### [facility] [address] [place] [address] Dr. Jc Norris D-DIMER COMMENTS SEE BELOW Normal [facility] Comment on above: Result Comment: Incr eases in D-Dimer concentration observed with thromboembolic events can be variable due to localization, size, and age of the thrombus. Therefore, a thromboembolic event cannot be diagnosed with certainty on the basis of the reference range. D-Dimers may also be elevated for a variety of disorders including: advanced age, , coronary disease, cancer, liver disease, infection, inflammation, hematoma, DIC, trauma, post-surgery, diabetes, thrombolytic or anticoagulant therapy, stress, and generalized hospitalization. Performed By: #### C BC #### [facility] [address] [place] [address] Dr. Jc Norris PROF CHEM 8 (BAS METB)on Anion gap [Moles/Vol] 8.7 mmol/L Normal [facility] Comment on above: Performed By: #### C BC #### [facility] [address] [place] [address] Dr. Jc Norris Calcium [Mass/Vol] 9.2 mg/dL Normal 8.5-10.1 [facility] Comment on above: Performed By: #### C BC #### [facility] [address] [place], [place] [id number] Dr. Jc Norris Chloride [Moles/Vol] 105 mmol/L Normal 98-107 [facility] Comment on above: Performed By: #### C BC #### [facility] [address] [address] [address] Jc Norris CO2 [Moles/Vol] 27.9 mmol/L Normal 21.0-32.0 [facility] Comment on above: Performed By: #### C BC #### [facility] [address] [place] [address] Dr. Jc Norris Creatinine [Mass/Vol] 0.67 mg/dL Normal 0.55-1.02 [facility] Comment on above: Performed By: #### C BC #### [facility] [address] [place] [address] Dr. Jc Norris EGFR-AF CITIZEN OF [place] >60 Normal >=60 [facility] Comment on above: Performed By: #### C BC #### [facility] [address] [place] [address] Dr. Jc Norris EGFR-NON AF CITIZEN OF THE [place] >60 Normal >=60 [facility] Comment on above: Performed By: #### C BC #### [facility] [address] [place] [address] Dr. Jc Norris Glucose [Mass/Vol] 86 mg/dL Normal 74-106 [facility] Comment on above: Performed By: #### C BC #### [facility] [address] [place] [address] Dr. Jc Norris Potassium [Moles/Vol] 3.6 mmol/L Normal 3.5-5.1 [facility] Comment on above: Performed By: #### C BC #### [facility] [address] [place] [address] Dr. Jc Norris Sodium [Moles/Vol] 138 mmol/L Normal 136-145 [facility] Comment on above: Performed By: #### C BC #### [facility] [address] [place] [address] Dr. Jc Norris Urea nitrogen [Mass/Vol] 11.0 mg/dL Normal 7.0-18.0 [facility] Comment on above: Performed By: #### C BC #### [facility] [address] [place], [place] [address] Dr. Jc Norris Urea nitrogen/Creatinine [Mass ratio] 16.4 mg/mg Normal [facility] Comment on above: Performed By: #### C BC #### [facility] [address] [place], [place] [address] Dr. Jc Norris XR CHEST 2 Von 12-26-2021 XR CHEST 2 V EXAM: XR CHEST 2 V REASON FOR EXAM: Female, 26 years, SHORTNESS OF BREATH. TECHNIQUE: PA and lateral views of the chest are performed. COMPARISON: 11/01/2020. FINDINGS: The lungs are expanded and clear. Normal pleura. Normal size heart. Normal mediastinum and nino. Normal visualized pulmonary arteries. Normal visualized aortic arch and descending thoracic aorta. Normal visualized thoracic spine. Normal visualized ribs, clavicles, and shoulders. There is no demonstrated abnormality of the visualized soft tissue structures of the upper abdomen. IMPRESSION: Normal examination of the chest. Electronically authenticated by: ALEK MONTELONGO Date: 2021-12-25 23:54 Normal [facility] ECHOCARDIO M/2D COMPLETEon 1 ECHOCARDIO M/2D COMPLETE Patient: MARIANGEL CORTES. Exam Date: 12/06/2021 : 1995 Gender:F Ordering : DR LONA GOMEZ . Admission #: [id number] Family : Order #: [id number] CLICK HERE TO VIEW EXAM ECHOCARDIOGRAM REPORT PROCEDURE: CARDIO PULMONARY ECHOCARDIO M/2D COMP INDICATIONS: Dyspnea COMPARISON: None. DESCRIPTION: COMPLETE ECHOCARDIOGRAM Real-time transthoracic echocardiography with 2D, M-mode, spectral and color flow Doppler performed. QUALITY: Technical quality was good. LEFT VENTRICLE: Normal chamber size. Normal left ventricular wall thickness. LV EF: Global left ventricular systolic function is normal. Calculated left ventricular ejection fraction is 60%. DIASTOLIC: Normal diastolic function. ATRIAL SEPTUM: Inadequately seen. LEFT ATRIUM: Normal chamber size. RIGHT ATRIUM: Normal chamber size. RIGHT VENTRICLE: Normal chamber size. Normal right ventricular systolic function. TRICUSPID VALVE: Normal mobility and thickness. No stenosis with trivial regurgitation. No evidence of pulmonary hypertension. RVSP 16mmHg MITRAL VALVE: Normal mobility and thickness. No mitral valve prolapse. No evidence of mitral valve stenosis. There is no mitral annular calcification. No mitral regurgitation. AORTIC VALVE: Normal trileaflet appearance. No visible sclerosis. Normal leaflet mobility. No evidence of aortic valve stenosis. No aortic regurgitation. AORTIC ROOT: Normal diameter and appearance. PULMONIC VALVE: Normal thickness and mobility. No stenosis. Trivial regurgitation. PERICARDIUM: No evidence of pericardial effusion. IVC: Collapses with inspirations. Normal size. CONCLUSION: Global left ventricular systolic function is normal; visually estimated ejection fraction is 55 to 60%. Normal diastolic function. The right ventricle is normal in size and systolic function. No significant valvular abnormalities. Adult Echocardiography Procedure Report Left Ventricle LVEDD (3.7 - 5.6 cm): 4.73 cm LVESD (2.2 - 4.0 cm): 3.36 cm LVIVS thickness (0.6 - 1.2 cm): 0.86 cm LVPW thickness (0.5 - 1.0 cm): 0.93 cm e': 0.11 m/s E - e': 6.19 LVOT Max Gradient: 2.73 mm[Hg] Peak Velocity (LVOT): 0.83 m/s Mean Velocity (LVOT): 0.60 m/s LVOT Diameter 1.96 cm Left Ventricular Ejection Fraction: 55.77 %, 55.77 % Left Atrium LA Volume Index (2D A2C): 56.47 ml, 56.47 ml Left Atrium Systolic Dimension: 2.91 cm Mitral Valve MV E to A Ratio: 1.10 Mitral Valve A-Wave Peak Velocity: 0.60 m/s Mitral Valve E-Wave Peak Velocity: 0.66 m/s Right Ventricle RV Internal Diastolic Dimension: 3.75 cm Aorta AO Root Diam: 3.08 cm Ascending Ao Diam: 2.91 cm Aortic Valve AoV Area (Peak Toni): 2.18 cm2, 2.14 cm2 AoV Area (VTI): 2.25 cm2, 2.23 cm2 Peak Velocity(Antegrade Flow): 1.16 m/s, 1.13 m/s Peak Gradient(Antegrade Flow): 5.42 mm[Hg], 5.09 mm[Hg] Mean Velocity(Antegrade Flow): 0.83 m/s, 0.83 m/s Mean Gradient(Antegrade Flow): 3.14 mm[Hg], 3.11 mm[Hg] Velocity Time Integral: 20.96 cm, 20.58 cm Tricuspid Valve Peak Velocity (Regurgitant Flow): 1.81 m/s, 1.72 m/s Peak Velocity: 0.51 m/s Pulmonic Valve Mean Gradient: 2.74 mm[Hg] Mean Velocity: 0.76 m/s Peak Velocity: 1.21 m/s, 1.07 m/s Peak Gradient: 4.62 mm[Hg], 5.85 mm[Hg] Right Atrium Right Atrium Systolic Pressure: 28.50 ml, 28.50 ml Dictated by: Jadyn Wong M.D. on 12/11/2021 at 15:52 Approved by: Jadyn Wong M.D. on 12/11/2021 at 15:55 Normal [facility] BNPon 11-24-2021 Natriuretic peptide B (Bld) [Mass/Vol] 7.0 pg/mL Normal <=450.0 [facility] Comment on above: Performed By: #### C MP, LIPID, TSH, T7, BNP #### [facility] [address] [address] [address] Jc Norris CBC AUTO DIFFon 11-24-2021 BASO # 0.0 103/ul Normal 0.0-0.1 [facility] Comment on above: Performed By: #### C BC ####[facility] [address] [address]Dr. Jc Norris Basophils/100 WBC (Bld) 0.3 % Normal 0.2-2.0 [facility] Comment on above: Performed By: #### C BC ####[facility] [address] [id number] Norris EO # 0.1 103/ul Normal 0.0-0.7 [facility] Comment on above: Performed By: #### C BC ####[facility] [address] [address]DrEric Norris Eosinophils/100 WBC (Bld) 2.1 % Normal 0.9-7.0 [facility] Comment on above: Performed By: #### C BC ####[facility] [address] [address]Dr. Jc Norris Erythrocyte distribution width (RBC) [Ratio] 12.9 % Normal 11.0-15.0 [facility] Comment on above: Performed By: #### C BC ####[facility] [address] [address]Dr. Jc Norris Hematocrit (Bld) [Volume fraction] 42.3 % Normal 36.0-48.0 [facility] Comment on above: Performed By: #### C BC ####[facility] [address] [place], [place] [address]Dr. Jc Norris Hemoglobin (Bld) [Mass/Vol] 13.6 g/dL Normal 12.0-16.0 [facility] Comment on above: Performed By: #### C BC ####[facility] [address] [place], [place] [address]Dr. Jc Norris IG # 0.03 10e3/ul Normal 0.00-0.03 [facility] Comment on above: Performed By: #### C BC ####[facility] [address] [place], [place] [address]Dr. Jc Norris IG % 0.5 % Normal 0.0-0.5 [facility] Comment on above: Performed By: #### C BC ####[facility] [address] [place], [place] [address]Dr. Jc Norris LYMPH # 1.7 103/ul Normal 1.2-3.8 [facility] Comment on above: Performed By: #### C BC ####[facility] [address] [place], [place] [address]Dr. Jc Norris Lymphocytes/100 WBC (Bld) 29.9 % Normal 20.5-60.0 [facility] Comment on above: Performed By: #### C BC ####[facility] [address] [place], [place] [address]Dr. Jc Norris MANUAL DIFF REQ NO Normal [facility] Comment on above: Performed By: #### C BC ####[facility] [address] [id number]. Jc Norris MCH (RBC) [Entitic mass] 28.7 pg Normal 26.7-34.0 [facility] Comment on above: Performed By: #### C BC ####[facility] [address] [id number]. Jc Norris MCHC (RBC) [Mass/Vol] 32.2 g/dL Normal 29.9-35.2 [facility] Comment on above: Performed By: #### C BC ####[facility] [address] [id number]. Jc Norris MCV (RBC) [Entitic vol] 89.2 fL Normal 81.0-99.0 [facility] Comment on above: Performed By: #### C BC ####[facility] [address] [place], [place] [address]Dr. Jc Jr MONO # 0.4 103/ul Normal 0.3-0.8 [facility] Comment on above: Performed By: #### C BC ####[facility] [address] [address]Dr. Kathleenkendall Norris Monocytes/100 WBC (Bld) 7.4 % Normal 1.7-12.0 [facility] Comment on above: Performed By: #### C BC ####[facility] [address] [place], [place] [address]Dr. Jc Norris NEUT # 3.5 103/ul Normal 1.4-6.5 [facility] Comment on above: Performed By: #### C BC ####[facility] [address] [place], [place] [address]Dr. Kathleenkendall Norris Neutrophils/100 WBC (Bld) 59.8 % Normal 43.0-75.0 [facility] Comment on above: Performed By: #### C BC ####[facility] [address] [place], [place] [address]Dr. Jc Jr Platelet mean volume (Bld) [Entitic vol] 10.3 fL Normal 9.5-13.5 [facility] Comment on above: Performed By: #### C BC ####[facility] [address] [place], [place] [address]Ta. Kathleenkendall Norris PLT 241 103/ul Normal 150-450 [facility] Comment on above: Performed By: #### C BC ####[facility] [address] [place], [place] [address]Pp. Jc Norris RBC 4.74 106/ul Normal 4.20-5.40 [facility] Comment on above: Performed By: #### C BC ####[facility] [address] [place], [place] [address]Pk. Jc Norris WBC 5.8 103/ul Normal 4.0-11.0 [facility] Comment on above: Performed By: #### C BC ####[facility] [address] [id number] Norris FREE THYROXINE INDEX T7on FTI 2.00 Normal 1.30-4.50 [facility] Comment on above: Performed By: #### C MP, LIPID, TSH, T7, BNP #### [facility] [address] [address] [address] Jc Norris T3U 29.0 % Critically low 30.0-39.0 [facility] Comment on above: Performed By: #### C MP, LIPID, TSH, T7, BNP #### [facility] [address] [address] [address] Jc Norris T4 [Mass/Vol] 6.90 ug/dL Normal 4.80-13.90 [facility] Comment on above: Performed By: #### C MP, LIPID, TSH, T7, BNP #### [facility] [address] [address] [address] Jc Norris GLYCOHEMOGLOBIN A1Con 2021 ADA RECOMMENDATION SEE BELOW Normal [facility] Comment on above: Result Comment: ADA RECOMMENDED LIMIT 4.0 - 6.0 ADA THERAPEUTIC TARGET < 7.0 ACTION SUGGESTED > 7.0 Performed By: #### A 1C ####[facility] [address] [address]Dr. Jc Norris Glucose [Mass/Vol] 103 mg/dL Normal [facility] Comment on above: Performed By: #### A 1C ####[facility] [address] [address]Dr. Jc Norris HbA1c (Bld) [Mass fraction] 5.2 % Normal 4.5-6.2 [facility] Comment on above: Performed By: #### A 1C ####[facility] [address] [address]Dr. Jc Norris IRONon 11-24-2021 Iron [Mass/Vol] 45.0 ug/dL Critically low 50.0-170.0 [facility] Comment on above: Performed By: #### I KINA ####[facility] [address] [address]DrEric Norris LIPID PROFILEon 11-24-2021 CHOL-HDL RATIO NORM SEE BELOW Normal [facility] Comment on above: Result Comment: 3.3 - 4.4 LOW RISK 4.4 - 7.1 AVERAGE RISK 7.1 - 11.0 MODERATE RISK >11.0 HIGH RISK Performed By: #### C MP, LIPID, TSH, T7, BNP #### [facility] [address] [address] [address] Jc Norris Cholesterol [Mass/Vol] 169 mg/dL Normal <=200 [facility] Comment on above: Performed By: #### C MP, LIPID, TSH, T7, BNP #### [facility] [address] [address] [address] Jc Norris Cholesterol in HDL [Mass/Vol] 44 mg/dL Normal 40-60 [facility] Comment on above: Performed By: #### C MP, LIPID, TSH, T7, BNP #### [facility] [address] [address] [address] Jc Norris Cholesterol in LDL [Mass/Vol] 106.2 mg/dL Normal [facility] Comment on above: Performed By: #### C MP, LIPID, TSH, T7, BNP #### [facility] [address] [address] [address] Jc Norris Cholesterol.total/Chol esterol in HDL [Mass ratio] 3.8 {ratio} Normal [facility] Comment on above: Performed By: #### C MP, LIPID, TSH, T7, BNP #### [facility] [address] [address] [address] Jc Norris HDL NORMAL > or = 60 mg/dl - LO W CARDIOVASCULAR RISK <40 mg/dl - HIGH CARDIOVASCULAR RISK Normal [facility] Comment on above: Performed By: #### C MP, LIPID, TSH, T7, BNP #### [facility] [address] [address] [address] Jc Norris LDL CALC NORMAL SEE BELOW Normal [facility] Comment on above: Result Comment: <100 mg/dl OPTIMAL 100 - 129 mg/dl NEAR OR ABOVE OPTIMAL 130 - 159 mg/dl BORDERLINE HIGH 160 - 189 mg/dl HIGH >190 mg/dl VERY HIGH Performed By: #### C MP, LIPID, TSH, T7, BNP #### [facility] [address] [address] [address] Jc Norris Triglyceride [Mass/Vol] 94 mg/dL Normal <=150 [facility] Comment on above: Performed By: #### C MP, LIPID, TSH, T7, BNP #### [facility] [address] [address] [address] Jc Norris VLDL CALC 18.8 mg/dL Normal [facility] Comment on above: Performed By: #### C MP, LIPID, TSH, T7, BNP #### [facility] [address] [address] [address] Jc Norris PROF 14(COMP METB)on 022 Albumin [Mass/Vol] 3.8 g/dL Normal 3.4-5.0 [facility] Comment on above: Performed By: #### C MP, LIPID, TSH, T7, BNP #### [facility] [address] [place] [address] Dr. Jc Norris Albumin/Globulin [Mass ratio] 1.1 {ratio} Normal [facility] Comment on above: Performed By: #### C MP, LIPID, TSH, T7, BNP #### [facility] [address] [place] [address] Dr. Jc Norris ALP [Catalytic activity/Vol] 109 U/L Normal 46-116 [facility] Comment on above: Performed By: #### C MP, LIPID, TSH, T7, BNP #### [facility] [address] [place] [address] Dr. Jc Norris ALT [Catalytic activity/Vol] 20 U/L Normal 14-59 [facility] Comment on above: Performed By: #### C MP, LIPID, TSH, T7, BNP #### [facility] [address] [place] [address] Dr. Jc Norris Anion gap [Moles/Vol] 8.3 mmol/L Normal [facility] Comment on above: Performed By: #### C MP, LIPID, TSH, T7, BNP #### [facility] [address] [place] [address] Dr. Jc Norris AST [Catalytic activity/Vol] 12 U/L Critically low 15-37 [facility] Comment on above: Performed By: #### C MP, LIPID, TSH, T7, BNP #### [facility] [address] [place] [address] Dr. Jc Norris Bilirubin [Mass/Vol] 0.3 mg/dL Normal 0.2-1.0 [facility] Comment on above: Performed By: #### C MP, LIPID, TSH, T7, BNP #### [facility] [address] [place] [address] Dr. Jc Norris Calcium [Mass/Vol] 8.9 mg/dL Normal 8.5-10.1 [facility] Comment on above: Performed By: #### C MP, LIPID, TSH, T7, BNP #### [facility] [address] [place] [address] Dr. Jc Norris Chloride [Moles/Vol] 105 mmol/L Normal 98-107 [facility] Comment on above: Performed By: #### C MP, LIPID, TSH, T7, BNP #### [facility] [address] [place] [address] Dr. Jc Norris CO2 [Moles/Vol] 29.8 mmol/L Normal 21.0-32.0 [facility] Comment on above: Performed By: #### C MP, LIPID, TSH, T7, BNP #### [facility] [address] [place] [address] Dr. Jc Norris Creatinine [Mass/Vol] 0.67 mg/dL Normal 0.55-1.02 [facility] Comment on above: Performed By: #### C MP, LIPID, TSH, T7, BNP #### [facility] [address] [place] [address] Dr. Jc Norris EGFR-AF CITIZEN OF [place] >60 Normal >=60 [facility] Comment on above: Performed By: #### C MP, LIPID, TSH, T7, BNP #### [facility] [address] [place] [address] Dr. Jc Norris EGFR-NON AF CITIZEN OF [place] >60 Normal >=60 [facility] Comment on above: Performed By: #### C MP, LIPID, TSH, T7, BNP #### [facility] [address] [place] [address] Dr. Jc Norris Globulin (S) [Mass/Vol] 3.5 g/dL Normal [facility] Comment on above: Performed By: #### C MP, LIPID, TSH, T7, BNP #### [facility] [address] [place] [address] Dr. Jc Norris Glucose [Mass/Vol] 107 mg/dL Critically high 74-106 [facility] Comment on above: Performed By: #### C MP, LIPID, TSH, T7, BNP #### [facility] [address] [place] [address] Dr. Jc Norris Potassium [Moles/Vol] 4.1 mmol/L Normal 3.5-5.1 [facility] Comment on above: Performed By: #### C MP, LIPID, TSH, T7, BNP #### [facility] [address] [place] [address] Dr. Jc Norris Protein [Mass/Vol] 7.3 g/dL Normal 6.4-8.2 [facility] Comment on above: Performed By: #### C MP, LIPID, TSH, T7, BNP #### [facility] [address] [place] [address] Dr. Jc Norris Sodium [Moles/Vol] 139 mmol/L Normal 136-145 [facility] Comment on above: Performed By: #### C MP, LIPID, TSH, T7, BNP #### [facility] [address] [place] [address] Dr. Jc Norris Urea nitrogen [Mass/Vol] 11.0 mg/dL Normal 7.0-18.0 [facility] Comment on above: Performed By: #### C MP, LIPID, TSH, T7, BNP #### [facility] [address] [place] [address] Dr. Jc Norris Urea nitrogen/Creatinine [Mass ratio] 16.4 mg/mg Normal [facility] Comment on above: Performed By: #### C MP, LIPID, TSH, T7, BNP #### [facility] [address] [place] [address] Dr. Jc Norris TSHon 11-24-2021 TSH 1.465 uIU/mL Normal 0.358-3.740 [facility] Comment on above: Performed By: #### C MP, LIPID, TSH, T7, BNP #### [facility] [address] [place] [address] Dr. Jc Norris T4 LABCORPon 10-31-2021 T4 [Mass/Vol] 5.8 ug/dL Normal 4.5-12.0 [facility] Comment on above: Performed By: #### C BC #### [facility] [address] [place] [address] Dr. Jc Norris CBC AUTO DIFFon 10-30-2021 BASO # 0.1 103/ul Normal 0.0-0.1 [facility] Comment on above: Performed By: #### C BC #### [facility] [address] [place] [address] Dr. Jc Norris Basophils/100 WBC (Bld) 0.4 % Normal 0.2-2.0 [facility] Comment on above: Performed By: #### C BC #### [facility] [address] [address] [address] Jc Norris EO # 0.2 103/ul Normal 0.0-0.7 [facility] Comment on above: Performed By: #### C BC #### [facility] [address] [address] [address] Jc Norris Eosinophils/100 WBC (Bld) 1.4 % Normal 0.9-7.0 [facility] Comment on above: Performed By: #### C BC #### [facility] [address] [place] [address] Dr. cJ Norris Erythrocyte distribution width (RBC) [Ratio] 13.0 % Normal 11.0-15.0 [facility] Comment on above: Performed By: #### C BC #### [facility] [address] [place] [address] Dr. Jc Norris Hematocrit (Bld) [Volume fraction] 42.4 % Normal 36.0-48.0 [facility] Comment on above: Performed By: #### C BC #### [facility] [address] [place] [address] Dr. Jc Norris Hemoglobin (Bld) [Mass/Vol] 13.2 g/dL Normal 12.0-16.0 [facility] Comment on above: Performed By: #### C BC #### [facility] [address] [address] [address] Jc Norris IG # 0.18 10e3/ul Critically high 0.00-0.03 [facility] Comment on above: Performed By: #### C BC #### [facility] [address] [address] [address] Jc Norris IG % 1.4 % Critically high 0.0-0.5 [facility] Comment on above: Performed By: #### C BC #### [facility] [address] [place] [address] Dr. Jc Norris LYMPH # 4.2 103/ul Critically high 1.2-3.8 [facility] Comment on above: Performed By: #### C BC #### [facility] [address] [place] [address] Dr. Jc Norris Lymphocytes/100 WBC (Bld) 31.5 % Normal 20.5-60.0 [facility] Comment on above: Performed By: #### C BC #### [facility] [address] [place] [address] Dr. Jc Norris MANUAL DIFF REQ NO Normal [facility] Comment on above: Performed By: #### C BC #### [facility] [address] [place] [address] Dr. Jc Norris MCH (RBC) [Entitic mass] 27.9 pg Normal 26.7-34.0 [facility] Comment on above: Performed By: #### C BC #### [facility] [address] [place] [address] Dr. Jc Norris MCHC (RBC) [Mass/Vol] 31.1 g/dL Normal 29.9-35.2 [facility] Comment on above: Performed By: #### C BC #### [facility] [address] [place] [address] Dr. Jc Norris MCV (RBC) [Entitic vol] 89.6 fL Normal 81.0-99.0 [facility] Comment on above: Performed By: #### C BC #### [facility] [address] [place] [address] Dr. Jc Norris MONO # 1.3 103/ul Critically high 0.3-0.8 [facility] Comment on above: Performed By: #### C BC #### [facility] [address] [place] [address] Dr. Jc Norris Monocytes/100 WBC (Bld) 9.9 % Normal 1.7-12.0 [facility] Comment on above: Performed By: #### C BC #### [facility] [address] [place] [address] Dr. Jc Norris NEUT # 7.4 103/ul Critically high 1.4-6.5 [facility] Comment on above: Performed By: #### C BC #### [facility] [address] [address] [address] Jc Norris Neutrophils/100 WBC (Bld) 55.4 % Normal 43.0-75.0 [facility] Comment on above: Performed By: #### C BC #### [facility] [address] [address] [address] Jc Norris Platelet mean volume (Bld) [Entitic vol] 10.2 fL Normal 9.5-13.5 [facility] Comment on above: Performed By: #### C BC #### [facility] [address] [place] [address] Dr. Jc Norris PLT 265 103/ul Normal 150-450 [facility] Comment on above: Performed By: #### C BC #### [facility] [address] [place] [address] Dr. Jc Norris RBC 4.73 106/ul Normal 4.20-5.40 [facility] Comment on above: Performed By: #### C BC #### [facility] [address] [place] [address] Dr. Jc Norris WBC 13.3 103/ul Critically high 4.0-11.0 [facility] Comment on above: Performed By: #### C BC #### [facility] [address] [place] [address] Dr. Jc Norris FREE T3on 10-30-2021 FREE T3 2.18 pg/mlL Normal 2.18-3.98 [facility] Comment on above: Performed By: #### C MP, LIPID, TSH, T7, BNP #### [facility] [address] [place] [address] Dr. Jc Norris PROF 14(COMP METB)on 022 Albumin [Mass/Vol] 3.6 g/dL Normal 3.4-5.0 [facility] Comment on above: Performed By: #### C MP, LIPID, TSH, T7, BNP #### [facility] [address] [place] [address] Dr. Jc Norris Albumin/Globulin [Mass ratio] 1.1 {ratio} Normal [facility] Comment on above: Performed By: #### C MP, LIPID, TSH, T7, BNP #### [facility] [address] [place] [address] Dr. Jc Norris ALP [Catalytic activity/Vol] 93 U/L Normal 46-116 [facility] Comment on above: Performed By: #### C MP, LIPID, TSH, T7, BNP #### [facility] [address] [place] [address] Dr. Jc Norris ALT [Catalytic activity/Vol] 22 U/L Normal 14-59 [facility] Comment on above: Performed By: #### C MP, LIPID, TSH, T7, BNP #### [facility] [address] [place] [address] Dr. Jc Norris Anion gap [Moles/Vol] 9.4 mmol/L Normal [facility] Comment on above: Performed By: #### C MP, LIPID, TSH, T7, BNP #### [facility] [address] [place] [address] Dr. Jc Norris AST [Catalytic activity/Vol] 13 U/L Critically low 15-37 [facility] Comment on above: Performed By: #### C MP, LIPID, TSH, T7, BNP #### [facility] [address] [place] [address] Dr. Jc Norris Bilirubin [Mass/Vol] 0.3 mg/dL Normal 0.2-1.0 [facility] Comment on above: Performed By: #### C MP, LIPID, TSH, T7, BNP #### [facility] [address] [place] [address] Dr. Jc Norris Calcium [Mass/Vol] 9.0 mg/dL Normal 8.5-10.1 [facility] Comment on above: Performed By: #### C MP, LIPID, TSH, T7, BNP #### [facility] [address] [place] [address] Dr. Jc Norris Chloride [Moles/Vol] 102 mmol/L Normal 98-107 [facility] Comment on above: Performed By: #### C MP, LIPID, TSH, T7, BNP #### [facility] [address] [place] [address] Dr. Jc Norris CO2 [Moles/Vol] 32.4 mmol/L Critically high 21.0-32.0 [facility] Comment on above: Performed By: #### C MP, LIPID, TSH, T7, BNP #### [facility] [address] [place] [address] Dr. Jc Norris Creatinine [Mass/Vol] 0.67 mg/dL Normal 0.55-1.02 [facility] Comment on above: Performed By: #### C MP, LIPID, TSH, T7, BNP #### [facility] [address] [place] [address] Dr. Jc Norris EGFR-AF CITIZEN [place] >60 Normal >=60 [facility] Comment on above: Performed By: #### C MP, LIPID, TSH, T7, BNP #### [facility] [address] [place] [address] Dr. Jc Norris EGFR-NON AF CITIZEN [place] >60 Normal >=60 [facility] Comment on above: Performed By: #### C MP, LIPID, TSH, T7, BNP #### [facility] [address] [place] [address] Dr. Jc Norris Globulin (S) [Mass/Vol] 3.2 g/dL Normal [facility] Comment on above: Performed By: #### C MP, LIPID, TSH, T7, BNP #### [facility] [address] [place] [address] Dr. Jc Norris Glucose [Mass/Vol] 94 mg/dL Normal 74-106 [facility] Comment on above: Performed By: #### C MP, LIPID, TSH, T7, BNP #### [facility] [address] [place] [address] Dr. Jc Norris Potassium [Moles/Vol] 3.7 mmol/L Normal 3.5-5.1 [facility] Comment on above: Performed By: #### C MP, LIPID, TSH, T7, BNP #### [facility] [address] [place] [address] Dr. Jc Norris Protein [Mass/Vol] 6.8 g/dL Normal 6.4-8.2 [facility] Comment on above: Performed By: #### C MP, LIPID, TSH, T7, BNP #### [facility] [address] [address] [address] Jc Norris Sodium [Moles/Vol] 140 mmol/L Normal 136-145 [facility] Comment on above: Performed By: #### C MP, LIPID, TSH, T7, BNP #### [facility] [address] [address] [address] Jc Norris Urea nitrogen [Mass/Vol] 16.0 mg/dL Normal 7.0-18.0 [facility] Comment on above: Performed By: #### C MP, LIPID, TSH, T7, BNP #### [facility] [address] [address] [address] Jc Norris Urea nitrogen/Creatinine [Mass ratio] 23.9 mg/mg Normal [facility] Comment on above: Performed By: #### C MP, LIPID, TSH, T7, BNP #### [facility] [address] [address] [address] Jc Norris TSHon 10-30-2021 TSH 2.046 uIU/mL Normal 0.358-3.740 [facility] Comment on above: Performed By: #### C MP, LIPID, TSH, T7, BNP #### [facility] [address] [address] [address] Jc Norris Body fluid albumin measureme nt (mass/volume)Ordered By: Anjali Hendrix on 10-06-2021 Albumin (Body fld) [Mass/Vol] 3.9 g/dL 3.2-5.5 [facility] Cholesterol in LDL Calc [Mas s/Vol]Ordered By: Anjali Hendrix on 10-06-2021 Cholesterol in LDL [Mass/Vol] 106 mg/dL 0-100 [facility] Comment on above: LDL ATP III CLASSIFI CATION LDL less than 100 mg/dL Optimal LDL 100-129 mg/dL Near or above optimal LDL 130-159 mg/dL Borderline high LDL 160-189 mg/dL High LDL greater than 189 mg/dL Very high Cholesterol in VLDL Calc [Ma ss/Vol]Ordered By: Anjali Hendrix on 10-06-2021 Cholesterol in VLDL [Mass/Vol] 22 mg/dL [facility] Comprehensive Metabolic Empo n 10-06-2021 Albumin [Mass/Vol] 3.9 g/dL Normal 3.2-5.5 [facility] Comment on above: Performed By: #### E BS LIPID, EBS A1C, EBS CMP #### [facility] [address] ALT [Catalytic activity/Vol] 19 U/L Normal 10-60 [facility] Comment on above: Performed By: #### E BS LIPID, EBS A1C, EBS CMP #### [facility] [address] Estimated GFR ( Amira > [address] [facility] Comment on above: Result Comment: GFR estimated reference range: According to KDOQI guidelines, <60 ml/min/1.73m2 is sufficient to diagnose a patient with chronic kidney disease. Performed By: #### E BS LIPID, EBS A1C, EBS CMP #### [facility] [address] Estimated GFR (Non- Am > [address] [facility] Comment on above: Performed By: #### E BS LIPID, EBS A1C, EBS CMP #### [facility] [address] Comprehensive Metabolic EmpO rdered By: Anjali Hendrix on 10-06-2021 Albumin/Globulin [Mass ratio] 1.4 {ratio} [facility] Comment on above: Performed By: #### E BS LIPID, EBS A1C, EBS CMP #### [facility] [address] [place] [address] [place] ALP [Catalytic activity/Vol] 76 U/L Normal 32-92 [facility] Comment on above: Performed By: #### E BS LIPID, EBS A1C, EBS CMP #### [facility] [address] [place] [address] [place] AST [Catalytic activity/Vol] 22 U/L Normal 10-42 [facility] Comment on above: Performed By: #### E BS LIPID, EBS A1C, EBS CMP #### [facility] [address] Bilirubin [Mass/Vol] 0.4 mg/dL Normal 0.3-1.2 [facility] Comment on above: Performed By: #### E BS LIPID, EBS A1C, EBS CMP #### [facility] [address] Calcium [Mass/Vol] 9.4 mg/dL Normal 8.2-10.2 [facility] Comment on above: Performed By: #### E BS LIPID, EBS A1C, EBS CMP #### [facility] [address] Chloride [Moles/Vol] 101 mmol/L Normal 95-114 [facility] Comment on above: Performed By: #### E BS LIPID, EBS A1C, EBS CMP #### [facility] [address] [place] [address] CO2 [Moles/Vol] 23.4 mmol/L Normal 22.0-30.0 [facility] Comment on above: Performed By: #### E BS LIPID, EBS A1C, EBS CMP #### [address] Creatinine [Mass/Vol] 0.66 mg/dL Normal 0.44-1.03 [facility] Comment on above: Performed By: #### E BS LIPID, EBS A1C, EBS CMP #### [facility] [address] [place] [address] Globulin (S) [Mass/Vol] 2.7 g/dL Normal [facility] Comment on above: Performed By: #### E BS LIPID, EBS A1C, EBS CMP #### [facility] [address] Glucose [Mass/Vol] 109 mg/dL High 70-100 [facility] Comment on above: Result Comment: ADA recommended reference range Performed By: #### E BS LIPID, EBS A1C, EBS CMP #### [facility] [address] [place] [address] ADA recommended refe rence range Potassium [Moles/Vol] 3.9 mmol/L Normal 3.5-5.1 [facility] Comment on above: Performed By: #### E BS LIPID, EBS A1C, EBS CMP #### [facility] [address] Protein [Mass/Vol] 6.6 g/dL Normal 6.1-7.9 [facility] Comment on above: Performed By: #### E BS LIPID, EBS A1C, EBS CMP #### [facility] [address] Sodium [Moles/Vol] 135 mmol/L Low 136-146 [facility] Comment on above: Performed By: #### E BS LIPID, EBS A1C, EBS CMP #### [facility] [address] Urea nitrogen [Mass/Vol] 11 mg/dL Normal 9-23 [facility] Comment on above: Performed By: #### E BS LIPID, EBS A1C, EBS CMP #### [facility] [address] EBS A1C with Estimated Ave G luon 10-06-2021 Glucose [Mass/Vol] 114 mg/dL Normal [facility] Comment on above: Result Comment: PERF ORMED BY: [place] [address] PATHOLOGIST CITY EDITOR MARLEY CANO M.D. Performed By: #### E BS LIPID, EBS A1C, EBS CMP #### [facility] [address] EBS A1C with Estimated Ave G luOrdered By: Anjali Hendrix on 10-06-2021 HbA1c (Bld) [Mass fraction] 5.6 % Normal 4.3-5.6 [facility] Comment on above: Result Comment: Incr eased risk for diabetes: 5.7 - 6.4 diabetes: >6.4 glycemic control for adults with diabetes: <7.0 Performed By: #### E BS LIPID, EBS A1C, EBS CMP #### [facility] [address] Increased risk for d iabetes: 5.7 - 6.4 diabetes: >6.4 glycemic control for adults with diabetes: <7.0 Estimated glomerular filtrat ion rate (GFR) non- AmericanOrdered By: Anjali Hendrix on 10-06-2021 GFR/1.73 sq M.predicted among non-blacks MDRD (S/P/Bld) [Vol rate/Area] > 60 mL/Min [facility] Glucose mean value [Mass/vol ume] in Blood Estimated from glycated hemoglobinOrdered By: Anjali Hendrix on 10-06-2021 Average glucose Estimated from glycated hemoglobin (Bld) [Mass/Vol] 114 mg/dL [facility] Lipid ProfileOrdered By: Jayshree Hendrix on 10-06-2021 Cholesterol [Mass/Vol] 179 mg/dL Normal 140-200 [facility] Comment on above: Result Comment: Chol less than 200 mg/dl low risk Chol 201-239 mg/dl borderline risk Chol 240 mg/dl and greater high risk Performed By: #### E BS LIPID, EBS A1C, EBS CMP #### [facility] [address] Chol less than 200 m g/dl low risk Chol 201-239 mg/dl borderline risk Chol 240 mg/dl and greater high risk Cholesterol in HDL [Mass/Vol] 50 mg/dL Normal 35-85 [facility] Comment on above: Result Comment: HDL CHOL ATP-III CLASSIFICATION Cardiovascular Risk HDL > or equal to 60 mg/dL LOW HDL < 40 mg/dL HIGH Performed By: #### E BS LIPID, EBS A1C, EBS CMP #### [facility] [address] HDL CHOL ATP-III CLA SSIFICATION Cardiovascular Risk HDL > or equal to 60 mg/dL LOW HDL < 40 mg/dL HIGH Cholesterol.total/Chol esterol in HDL [Mass ratio] 3.6 {ratio} Normal <5.0 [facility] Comment on above: Result Comment: PERF ORMED BY: [place] [address] PATHOLOGIST CITY EDITOR MARLEY CANO M.D. Performed By: #### E BS LIPID, EBS A1C, EBS CMP #### [facility] [address] [place] [address] [place] Lipid Profileon 10-06-2021 LDL Cholesterol,Calculated 106 mg/dL High 0-100 [facility] Comment on above: Result Comment: LDL ATP III CLASSIFICATION LDL less than 100 mg/dL Optimal LDL 100-129 mg/dL Near or above optimal LDL 130-159 mg/dL Borderline high LDL 160-189 mg/dL High LDL greater than 189 mg/dL Very high Performed By: #### E BS LIPID, EBS A1C, EBS CMP #### [facility] [address] Triglyceride w/Reflex 113 mg/dL Normal 35-149 [facility] Comment on above: Result Comment: TRIG ATP III CLASSIFICATION TRIG less than 150 mg/dL Normal TRIG 150-199 mg/dL Borderline high TRIG 200-500 mg/dL High TRIG greater than 500 mg/dL Very high Standard traceable to the Center for Disease Conrtrol and Prevention (CDC) test method. Performed By: #### E BS LIPID, EBS A1C, EBS CMP #### [facility] [address] VLDL CHOLESTEROL 22 mg/dL Normal [facility] Comment on above: Performed By: #### E BS LIPID, EBS A1C, EBS CMP #### [facility] [address] No Panel InformationOrdered By: Anjali Hendrix on 10-06-2021 Estimated GFR () > 60 mL/Min [facility] Comment on above: GFR estimated refere nce range: According to KDOQI guidelines, <60 ml/min/1.73m2 is sufficient to diagnose a patient with chronic kidney disease. Pharmacy Creatinine Clearance (Chem N/A [facility] Triglycerides Reflex 113 mg/dL 35-149 [facility] Comment on above: TRIG ATP III CLASSIF ICATION TRIG less than 150 mg/dL Normal TRIG 150-199 mg/dL Borderline high TRIG 200-500 mg/dL High TRIG greater than 500 mg/dL Very high Standard traceable to the Center for Disease Conrtrol and Prevention (CDC) test method. Serum or plasma alanine alcala otransferase measurement without P-5'-P (enzymatic activiOrdered By: Anjali Hendrix on 10-06-2021 ALT No additional P-5'-P [Catalytic activity/Vol] 19 U/L 10-60 [facility] HCG,Urineon 04-25-2021 Beta HCG ( test) Ql (U) Negative Normal [facility] Comment on above: Result Comment: PERF ORMED BY: [place] [address] PATHOLOGIST CITY EDITOR MARLEY CANO M.D. Performed By: #### U HCG #### [facility] [address] [place] [address] HCG,Urineon 03-16-2021 Beta HCG ( test) Ql (U) Negative Normal [facility] Comment on above: Result Comment: PERF ORMED BY: [place] [address] PATHOLOGIST CITY EDITOR MARLEY CANO M.D. Performed By: #### U HCG #### [facility] [address] [place] [address] COVID-19 [facility]MCon 02-21-2021 SARS-CoV-2 (COVID-19) RNA VANDANA+probe Ql (Unsp spec) Positive Critically abnormal Negative [facility] Comment on above: Order Comment: Healt hcare Worker?: N Result Comment: Posi tive results will only be called to Providers for the following groups of patients: Pre-Surgical Testing, Emergency Room, and Inpatients. Testing for SARS-CoV-2 by RT-PCR This test was developed and its performance characteristics determined by [employer], [employer] ([employer]) and validated at the [facility]. This test has not been FDA cleared or approved. This test has been authorized by FDA under an Emergency Use Authorization (EUA). This test has been validated in accordance with the FDA's Guidance Document (Policy for Diagnostics Testing in Laboratories Certified to Perform High Complexity Testing under CLIA prior to Emergency Use Authorization for Coronavirus Disease-2019 during the Public Health Emergency) issued on May 21, 2019. This test is only authorized for the duration of time the declaration that circumstances exist justifying the authorization of the emergency use of in vitro diagnostic tests for detection of SARS-CoV-2 virus and/or diagnosis of COVID-19 infection under section 564(b)(1) of the Act, 21 U.S.C. 360bbb-3(b)(1), unless the authorization is terminated or revoked sooner. PERFORMED BY: [facility] [address] [place] [id number] PATHOLOGIST CITY EDITOR MARLEY CANO M.D. Performed By: #### C OVID 19 [facility] #### [facility] [address] [place] [id number] [facility] Vital Signs Date Time Vital Sign Value Performing Clinician Facility 10-23-2022 09:00-0400 Body height 170.18 cm Al Ball Other [facility] Other 10-23-2022 09:00-0400 Body mass index (BMI) [Ratio] 33.36 kg/m2 Al Ball Other [facility] Other 10-23-2022 09:00-0400 Body weight 96.62 kg Al Ball Other [facility] Other 10-23-2022 09:00-0400 Diastolic blood pressure 68 mm[Hg] Al Ball Other [facility] Other 10-23-2022 09:00-0400 Systolic blood pressure 105 mm[Hg] Al Ball Other [facility] Other 05-05-2021 11:45-0400 Body height 170.18 cm Eric Diaz Other [facility] Other 05-05-2021 11:45-0400 Body mass index (BMI) [Ratio] 34.14 kg/m2 Eric Diaz Other [facility] Other 05-05-2021 11:45-0400 Body weight 98.88 kg Eric Diaz Other [facility] Other 02-01-2021 15:30-0500 Body height 170.18 cm Eric Diaz Other [facility] Other 02-01-2021 15:30-0500 Body mass index (BMI) [Ratio] 31.48 kg/m2 Eric Diaz Other [facility] Other 02-01-2021 15:30-0500 Body weight 91.17 kg Eirc Diaz Other [facility] Other Encounters Encounter Date Encounter Type Care Provider Facility Start: 01-09-2023 End: 01-09-2023 ambulatory RADHA POSADA Not Available Start: 10-23-2022 End: 10-23-2022 ambulatory Al Snow Other [facility] Other Start: 10-23-2022 Office outpatient vi sit 10 minutes Al Snow [facility] Start: 10-18-2022 End: 10-19-2022 ambulatory MARY TRAN [facility] Start: 07-17-2022 End: 07-17-2022 ambulatory BERNARDO ROSAS Facility:[facility]1 Start: 06-30-2022 End: 07-01-[address] ALEX RIDER . Facility:[facility] Start: 06-28-2022 End: 06-29-[address] ALEX RIDER . Facility:[facility] Start: 06-13-2022 End: 06-13-[address] LONA GOMEZ . Facility:[facility] Start: 06-02-2022 End: 06-03-[address] ALEX RIDER . Facility:[facility] Start: 05-31-2022 End: 06-01-[address] ALEX RIDER . Facility:[facility] Start: 05-29-2022 End: 05-30-[address] ALEX RIDER . Facility:[facility] Start: 05-18-[address] LONA GOMEZ . Facili ty:[facility]1 Start: 05-03-2022 End: 05-04-[address] LONA GOMEZ . Facility:[facility] Start: 04-05-2022 End: 04-05-2022 ambulatory OSCAR ASHLEY . Facility:[facility] Start: 03-06-2022 End: 03-07-[address] DOCTOR BLANC Facility:[facility]1 Start: 02-15-2022 End: 02-15-[address] DELPHINE MICHAUD Facility:[facility]1 Start: 12-26-2021 End: 12-26-2021 ambulatory QUE MELENDEZ Facility:[facility]1 Start: 12-06-2021 End: 12-07-[address] LONA GOMEZ . Facility:[facility] Start: 11-24-2021 End: 11-25-[address] LONA GOMEZ . Facility:[facility] Start: 10-30-2021 End: 10-31-[address] LONA GOMEZ . Facility:[facility] Start: 10-06-2021 End: 10-06-2021 Departed Referred MD Lona Gomez Work Phone: [facility] [address] Start: 08-30-2021 End: 08-31-[address] LONA GOMEZ . Facility:[facility] Start: 05-05-2021 End: 05-05-2021 ambulatory Eric Diaz Other [facility] Other Start: 05-05-2021 Postop follow up vis it related to original px Eric Diaz [facility] Start: 03-27-2021 End: 03-27-2021 ambulatory Eric Diaz Other [facility] Other Start: 03-27-2021 Encounter for other preprocedural examination Eric Diaz [facility] Start: 03-27-2021 Postop follow up vis it related to original px Eric Diaz [facility] Start: 02-08-2021 End: 02-08-2021 ambulatory Eric Diaz Other [facility] Other Start: 02-08-2021 Telephone encounter Eric DOMINGUEZ [facility] Start: 02-06-2021 End: 02-06-2021 ambulatory Eric Emily Other [facility] Other Start: 02-06-2021 Telephone encounter Eric DOMINGUEZ [facility] Start: 02-01-2021 End: 02-01-2021 ambulatory Eric Diaz Other [facility] Other Start: 02-01-2021 Encounter for other preprocedural examination Eric Diaz [facility] Start: 02-01-2021 Office outpatient ne w 45 minutes Eric Diaz [facility] Immunizations Immunization Date Immunization Notes Care Provider Viviana hernandez 01-17-2021 COVID-19 Wei Fernandez (Pfizer) MD Lona Gomez Work Phone: [facility] 12-18-2020 COVID-19 mRNAWei (Pfizer) MD Lona Gomez Work Phone: [facility] Payers Date Payer Category Payer Unknown [id number] 2.16.84 [id number] 1993 Unknown [id number] 2.16.84 0.1.381434.3.579.2.593 1993 Unknown [id number] 2.16.84 0.1.106188.3.579.2.593 1993 Unknown [id number] 2.16.84 0.1.231866.3.579.2.593 1993 Unknown [id number] 2.16.84 0.1.927816.3.579.2.593 1993 Unknown [id number] 2.16.84 0.1.670621.3.579.2.593 1993 Unknown [id number] 2.16.84 0.1.823842.3.579.2.593 1993 Unknown [id number] 2.16.84 0.1.677022.3.579.2.593 1993 Unknown [id number] 2.16.84 0.1.711858.3.579.2.593 1993 Unknown [id number] 2.16.84 0.1.590411.3.579.2.593 1993 Unknown [id number] 2.16.84 0.1.139786.3.579.2.593 1993 Unknown [id number] 2.16.84 0.1.147400.3.579.2.593 1993 Unknown [id number] 2.16.84 0.1.042970.3.579.2.593 1993 Unknown [id number] 2.16.84 0.1.527172.3.579.2.593 1993 Unknown [id number] 2.16.84 0.1.028356.3.579.2.593 1993 Unknown [id number] 2.16.84 0.1.692312.3.579.2.593 1993 Unknown [id number] 2.16.84 0.1.180157.3.579.2.593 1993 Unknown [id number] 2.16. 840.1.100300.3.579.2.175 1993 Unknown [id number] 2.16.840 .1.962473.3.579.2.1259 1959 Unknown [id number] 2. 16.840.1.698351. 1959 Unknown [id number] 2.16. 840.1.184340. 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 Oct, BOB (generalized anxiety disorder) (ICD-10 - F41.1) Controlled w/ medications Instructed on healthy diet and exercise Oct, Gastroesophageal reflux disease without esophagitis (ICD-10 - K21.9) Diet instructions, avoid lying flat after eating, avoid eating prior to HS. Continue PPI [facility] Other Clinical Note 07-17-2022 Note Date & Type Note Facility 07-17-2022 Note PROCEDURE: US PREG < 14 WKS, 07/17/2022 5:02 PM EDT CLINICAL INDICATIONS: Threatened , encounter for first trimester , vaginal bleeding today 4 para 2 AB 1 Expected gestational age: 12 weeks 2 days Expected LIZBET: 01/27/2023 COMPARISON: 06/28/2022 TECHNIQUE: Transabdominal first trimester obstetric sonogram, grayscale color and spectral assessment. FINDINGS: Uterus: A single living intrauterine is identified. Intrauterine gestational sac is identified. body and cardiac activity is identified. Heart rate 164 bpm. Placenta developing towards the posterior right margin. Mean gestational sac size: 5.81 cm, 11 weeks 6 days crown-rump length: 5.61 cm, 12 weeks 1 day Composite sonographic gestational age: 12 weeks 0 days +/- 6 days Sonographic LIZBET: 01/29/2023 No perigestational hemorrhage Maternal right ovary: 2.7 x 2.7 x 2.5 cm, volume 10 mL. Normal sonographic morphology. Maternal left ovary: 2.0 x 1.9 x 2.2 cm, volume 4 mL. Normal sonographic morphology. Transabdominal cervical length, 3.8 cm. IMPRESSION: 1. Single living intrauterine , sonographic gestational age of 12 weeks 0 days +/- 6 days 2. Sonographic LIZBET 01/29/2023 3. No perigestational hemorrhage 4. Placenta developing posterior right margin 5. Normal bilateral maternal ovarian sonographic morphology Electronically authenticated by: IKE COMBS Date: 2022-07-17 17:34 [facility] Evaluation note 05-05-2021 Note Date & Type Note Facility 05-05-2021 Evaluation note Encounter Date Diagnosis Assessment Notes Apr, Right carpal tunnel syndrome (ICD-10 - G56.01) Recovering well at this time. Exam is benign. Continue activities as tolerated without restrictions. Follow-up as needed. Patient is progressing well from surgery. We discussed the importance of continuing to work on range of motion and strength exercise. Apr, Other specified postprocedural states (ICD-10 - Z98.890) Apr, Left carpal tunnel syndrome (ICD-10 - G56.02) Recovering well with benign exam. Activities as tolerated and follow-up as needed. Patient is progressing well from surgery. We discussed the importance of continuing to work on range of motion and strength exercise. [facility] Other Evaluation note 03-27-2021 Note Date & Type Note Facility 03-27-2021 Evaluation note Encounter Date Diagnosis Assessment Notes Mar, Right carpal tunnel syndrome (ICD-10 - G56.01) Mariangel presents with EMG positive bilateral carpal tunnel syndrome, right worse than left. At this juncture we have discussed the findings and diagnosis as well as personally reviewed appropriate imaging and performed interpretation of related testing and examination with the patient in office today. Prior medical notes from Dr. Gomez and history have been reviewed. Findings and diagnosis of carpal tunnel syndrome have been discussed at length with the patient. We have discussed how it is the most common compressive neuropathy effects up to 10% of the population. Diagnostic evaluation including physical exam as well as electromyography and nerve conduction studies were discussed. Imaging and diagnostic studies have been reviewed with the patient. Nonoperative treatment including NSAIDs, night splints as well as activity modifications along with steroid injections have been discussed. We have discussed open surgical release of the transverse carpal ligament which is performed during carpal tunnel surgery. We have also discussed the outcomes involved in surgical release including the return of pinch strength in approximately 6 weeks, medical imaging technologist strength recovery at about 12 weeks, and the possibility of ongoing symptoms at 1 year and 20% of severe cases. Right side healing well. Ready to proceed with left carpal tunnel release. Instructed on application of Neosporin to incision to help dryness. May allow incision to get wet in clean running water, no thrasher/quezada/st nick. Instructed to progress activity as tolerated Mar, Other specified postprocedural states (ICD-10 - Z98.890) Mar, Left carpal tunnel syndrome (ICD-10 - G56.02) Mariangel presents with left carpal tunnel syndrome. At this juncture we have discussed the findings and diagnosis as well as reviewed appropriate imaging and performed interpretation of testing. Surgical intervention is recommended. Prior medical notes and history have been reviewed. Surgical versus non-operative management have been discussed in detail and non-operative management was given as an option. The risks of surgical intervention were given. Pre-operative optimization will be done prior to surgical procedure to limit domenica-operative risks. I have discussed the planned procedure, how and who performs the procedure, and the personnel involved. Cardiovascular, pulmonary, and other life threatening episodes can occur during surgery although there is a low risk of these happening. Surgical risks including bleeding, neurovascular injury, wound closure problems and infection were discussed. Domenica-operative risks including infection, bleeding, wound healing problems, and need for further surgery were discussed. It was discussed that there is a possibility of blood transfusion with any surgical procedure and the risks involved in receiving a blood transfusion. Possibility of, and need for, future bracing or DME use, physical or occupational therapy, mental therapy, rehabilitation, pain management and need for secondary procedures was discussed. I have warned against smoking and the use of tobacco products due to the risks associated with them, in particular, poor healing. 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 I have advised to follow all post-operative instructions in order to obtain the best outcome. Informed consent has been verbally affirmed and signed as indicated. We will plan on carpal tunnel release.The patient has stated that they do not want to live in this condition any longer and would like to proceed with surgery. I feel that this is a reasonable option at this point and we may be able to improve function and decrease pain and numbness. We have discussed the process and procedure in detail including not eating or drinking 8 hrs prior to surgery, the need for anesthesia and associated respiratory, cardiac, and patient position complications (such as nerve traction and compression). We discussed that incisional pain and continued neurologic symptoms can persist for months after surgery. The complications of infection, persistent symptoms, sensory and motor nerve injury are well known problems that can require repeat surgeries. Patient is fully aware that this wrist may never be the same. We discussed that our team will do everything we can to help achieve the best outcome. Mar, Pre-op examination (ICD-10 - Z01.818) [facility] Other Evaluation note 02-01-2021 Note Date & Type Note Facility 02-01-2021 Evaluation note Encounter Date Diagnosis Assessment Notes Jan, Left carpal tunnel syndrome (ICD-10 - G56.02) Jan, Right carpal tunnel syndrome (ICD-10 - G56.01) Mariangel presents with EMG positive bilateral carpal tunnel syndrome, right worse than left. At this juncture we have discussed the findings and diagnosis as well as personally reviewed appropriate imaging and performed interpretation of related testing and examination with the patient in office today. Prior medical notes from Dr. Gomez and history have been reviewed. Findings and diagnosis of carpal tunnel syndrome have been discussed at length with the patient. We have discussed how it is the most common compressive neuropathy effects up to 10% of the population. Diagnostic evaluation including physical exam as well as electromyography and nerve conduction studies were discussed. Imaging and diagnostic studies have been reviewed with the patient. Nonoperative treatment including NSAIDs, night splints as well as activity modifications along with steroid injections have been discussed. We have discussed open surgical release of the transverse carpal ligament which is performed during carpal tunnel surgery. We have also discussed the outcomes involved in surgical release including the return of pinch strength in approximately 6 weeks, medical imaging technologist strength recovery at about 12 weeks, and the possibility of ongoing symptoms at 1 year and 20% of severe cases. Patient verbalized understanding of our discussion and would like to move forward with right carpal tunnel release at this time. We will get her scheduled. Plan for follow-up with left carpal tunnel release. 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 Discussed treatment options as cortisone injection versus surgical release. Surgical procedure, risks, recovery and restrictions discussed in detail. Patient was in understanding and wishes to proceed with surgery. We will plan for right carpal tunnel release. Advised patient plan to be off work or on restrictions 6 weeks post op. Jan, Pre-op exam (ICD-10 - Z01.818) Jan, Other See orders for this visit as documented in the electronic medical record. [facility] Other Evaluation note Note Date & Type Note Facility Evaluation note No Information [facility] Other Evaluation note Note Date & Type Note Facility Evaluation note No assessment information availa [facility] Work Phone: History general Narrative - Reported Note Date & Type Note Facility History general Narrative - Reported Type Medical History migraine headache Medical History hyperthyroidism Medical History back muscle spasms Surgical History gall bladder Surgical History tonsillectomy and adenoidectomy Surgical History ear tubes Hospitalization History childbirth [facility] Other History general Narrative - Reported Note Date & Type Note Facility History general Narrative - Reported Type Medical History GERD Medical History BOB Surgical History T/A Surgical History CTS Surgical History Cholecystectomy [facility] Other Summary Purpose Family History No Family History Records Found Relationship Condition Age at Onset Recorded Date/T monie Not Specified Diabetes mellitus Unknown Not Specified Cerebrovascular accident (CVA) Unknown Advance Directives No Advanced Directives Records Found Advance Directive Response Recorded Date/ Time Advance Directives No February 21, 2021 4:11pm Chief Complaint and Reason for Visit Chief Complaint labs Additional Source Comments REASON FOR VISIT (unrecogniz ed section and content) 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 DATE CREATED AUTHOR AUTHOR'S ORGANIZ ATION 01/11/2023 [facility] EPIC Care Teams (unrecognized sec tion and content) Team Status: Inactive Member Role Status Dates Lona Gomez MD Primary Care Provider Active Anjali Hendrix APRN Attending Provider Active Team Status: Active Member Role Status Dates Lona Gomez MD Primary Care Provider Active Goals (unrecognized section and content) Goals may be documented in a n alternate section FOR RECORDS PERTAINING TO PATIENTS WHO ARE OR HAVE BEEN ENROLLED IN A CHEMICAL DEPENDENCY/SUBSTANCEABUSE PROGRAM, SOME INFORMATION MAY BE OMITTED. This clinical summary was aggregated from multiple sources. Caution should be exercised in using it in the provision of clinical care. This summary normalizes information from multiple sources, and as a consequence, information in this document may materially change the coding, format and clinical context of patient data. In addition, data may be omitted in some cases. CLINICAL DECISIONS SHOULD BE BASED ON THE PRIMARY CLINICAL RECORDS. [email or web address] provides no warranty or guarantee of the accuracy or completeness of information in this document.
== END 2023-02-25 07:54 | disposition home or self-care (01) ==
LOC: PST 07:53
PROVIDERS: PCP Family Medicine; Visit Provider Obstetrics & Gynecology
DX: Z01.818 Encounter for other preprocedural examination (principal); Z30.2 Encounter for sterilization

== ENCOUNTER 2023-03-01 06:20 | Day surgery (SDC) | payer OTHER, SELFPAY ==
[2023-02-25 08:29] VITALS: BP 117/75; PULSE 68; RESP 18; TEMP 36.3; O2SAT 99; BMI 34.1
[2023-03-01] VITALS (12 sets, daily range): BP systolic 109–140; BP diastolic 66–100; PULSE 79–101; RESP 16–36; TEMP 36.4–36.6; O2SAT 94–100
--- OUTSIDE RECORDS SUMMARY | 2023-03-01 06:22 | XMS_ITS | CCD ---
Author Name Unknown Address [address] [place] [address] Organization [facility] Care Team Providers Care Call Circuit Worker Name Role Phone Eric Diaz Unavailable MD Lona Gomez Primary Care Provider [phone] JANET Hendrix Attending Provider DR LONA DEL ANGEL Consulting Unavailable HOY ., DR [...] HOY ., DR ZAMORANO Primary Care Unavailable MCKINNEY, DR NILDA Rodriguez Consulting Unavailable PAY ., [...] sources) Latex Drug allergy (disorder) 02-24-2016 [facility] Repository Medications Current Medications Medication Drug Class(es) [...] 2021 1:00am take 1 capsule by mo [facility] every twenty-four hours Cymbalta 60 MG [...] 11-04-2021 Chronic Other aftercare (1 source) 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 Jc Norris Clarity (U) CLEAR Normal CLEAR [facility] Comment on above: Performed By: #### Jackelyn BOTELLO UMICRO ####[facility] [address] [place] [address]Dr. Jc Norris Color (U) LT. YELLOW Normal YELLOW [facility] Comment on above: Performed By: #### Jackelyn BOTELLO UMICRO ####[facility] [address] [place], [place] [address]Dr. Kathleenkendall Norris ERUAHD A micrscopic examination will be performed if indicated. Normal [facility] Comment on above: Performed By: #### Jackelyn BOTELLO UMICRO ####[facility] He[address] [place], [place] [address]Dr. Kathleenkendall Jr Glucose Ql (U) Negative Normal NEGATIVE [facility] Comment on above: Performed By: #### Jackelyn BOTELLO UMICRO ####[facility] [address] [place], [place] [address]Dr. Jc Norris Hemoglobin Ql (U) MODERATE Abnormal NEGATIVE [facility] Comment on above: Performed By: #### Jackelyn BOTELLO UMICRO ####[facility] Adttin[address]ty[address] [place], [place] [address]Dr. Jc Norris Ketones Ql (U) Negative Normal NEGATIVE [facility] Comment on above: Performed By: #### Jackelyn BOTELLO UMICRO ####[facility] [address] [place] [address]Dr. Jc Norris LEUKOCYTES SMALL Abnormal NEGATIVE [facility] Comment on above: Performed By: #### Jackelyn BOTELLO UMICRO ####[facility] [address] [place] [address]Dr. Kathleenkendall Jr Nitrite Ql (U) Negative Normal NEGATIVE [facility] Comment on above: Performed By: #### Jackelyn BOTELLO UMICRO ####[facility] [address] [place] [address]Dr. Jc Jr pH (U) 6.5 [pH] Normal 5-9 [facility] Comment on above: Performed By: #### IVET OSBORN ####[facility] [address] [place] [address]Dr. Jc Jr SPEC GRAVITY 1.020 Normal 1.005-<=1.02 5 [facility] Comment on above: Performed By: #### IVET OSBORN ####[facility] [address] [place], [place] [address]Dr. Jc Norris UA PROTEIN Negative Normal NEGATIVE/ TRACE [facility] Comment on above: Performed By: #### IVET OSBORN ####[facility] [address] [place], [place] [address]Dr. Jc Norris UR MICRO IND INDICATED Normal [facility] Comment on above: Performed By: #### IVET OSBORN ####[facility] [address] [place], [place] [address]Dr. Jc Norris Urobilinogen Qn (U) 0.2 {Diamond'U}/dL Normal 0.2 - 1. 0 [facility] Comment on above: Performed By: #### IVET OSBORN ####[facility] Qqiq[address] [place], [place] [address]Dr. Jc Norris URINE MICROSCOPIC ONLYon BACTERIA TRACE Abnormal NONE SEEN [facility] Comment on above: Performed By: #### IVET OSBORN ####[facility] [address] [place], [place] [address]Dr. Jc Norris Bacteria identified Cx Nom (U) NOT INDICATED Normal [facility] Comment on above: Performed By: #### IVET OSBORN ####[facility] U[address]rx[address] [place], [place] [address]Dr. Jc Norris CAST NONE SEEN Normal NONE SEEN [facility] Comment on above: Performed By: #### IVET OSBORN ####[facility] [address] [place] [address]Dr. Jc Norris Crystals LM Nom (Urine sed) NONE SEEN Normal NONE SEEN [facility] Comment on above: Performed By: #### SHIMA OSBORNRO ####[facility] [address] [place] [address]Dr. Jc Norris Epithelial cells LM Ql (Urine sed) MODERATE Abnormal NONE SEEN /RARE [facility] Comment on above: Performed By: #### SHIMA OSBORNRO ####[facility] [address] [place] [address]Dr. Jc Norris MUCOUS TRACE Abnormal NONE SEEN [facility] Comment on above: Performed By: #### SHIMA OSBORNRO ####[facility] [address] [place] [address]Dr. Jc Norris RBC 2-5 Abnormal 0-2 [facility] Comment on above: Performed By: #### SHIMA OSBORNRO ####[facility] [address] [place] [address]Dr. Jc Norris WBC 2-5 Abnormal NONE SEEN [facility] Comment on above: Performed By: #### SHIMA OSBORNRO ####[facility] [address] [place] [address]DrEric Norris HEP B SURFACE ANTIGEN SCREEN on 07-01-2022 HBsAg Screen Negative Normal Negative [facility] Comment on above: Performed By: #### C MP, LIPID, TSH, T7, BNP #### [facility] [address] [address] [address] Jc Norris HEPATITIS C VIRUS AB W/ REFL EX QUANTon 07-01-2022 HCV AB Non-Reactive Normal Non Reactive [facility] Comment on above: Performed By: #### H CVPCRR ####[facility] [address] [place] [address]DrEric Norris Interpretation: Comment Normal [facility] Comment on above: Result Comment: Not infected with HCV unless early or acute infection is suspected (which may be delayed in an immunocompromised individual), or other evidence exists to indicate HCV infection. Performed By: #### H CVPCRR ####[facility] [address] [place] [id number]. Jc Norris RPR QUANTon 07-01-2022 Rapid Plasma Reagin, Quant Non-Reactive Normal NonRea<1:1 [facility] Comment on above: Result Comment: Nikky chavis Note: This test does not meet current guidelines for screening and diagnosis of syphilis. This test is intended for following treatment response in patients being treated for syphilis infection. To screen for syphilis infection, a reflex cascade that includes both RPR and a treponema-specific assay should be utilized, such as Treponema pallidum (Syphilis) Screening [place] (233675) or Rapid Plasma Reagin (RPR) Test With Reflex to Quantitative RPR and Confirmatory Treponema pallidum Antibodies (668993). Performed By: #### R PRQ ####[facility] [address] [place] [address]Dr. Jc Norris RUBELLA AB IGGon 07-01-2022 Rubella Antibodies, IgG 3.13 index Normal Immune >0.99 [facility] Comment on above: Result Comment: Non- immune <0.90 Equivocal 0.90 - 0.99 Immune >0.99 Performed By: #### C BC #### [facility] [address] [address] [address] Jc Norris BOX TEST SENT OUTon 07-01-19 SENT TO REF LAB 06/30/22 Normal [facility] Comment on above: Performed By: #### C MP, LIPID, TSH, T7, BNP #### [facility] [address] [address] [address] Jc Norris CBC AUTO DIFFon 06-30-2022 BASO # 0.0 103/ul Normal 0.0-0.1 [facility] Comment on above: Performed By: #### C BC #### [facility] [address] [place] [address] Dr. Jc Norris Basophils/100 WBC (Bld) 0.4 % Normal 0.2-2.0 [facility] Comment on above: Performed By: #### C BC #### [facility] [address] [place] [address] Dr. Jc Norris EO # 0.1 103/ul Normal 0.0-0.7 [facility] Comment on above: Performed By: #### C BC #### [facility] [address] [place] [address] Dr. Jc Norris Eosinophils/100 WBC (Bld) 0.7 % Critically low 0.9-7.0 [facility] Comment on above: Performed By: #### C BC #### [facility] [address] [place] [address] Dr. Jc Norris Erythrocyte distribution width (RBC) [Ratio] 12.6 % Normal 11.0-15.0 [facility] Comment on above: Performed By: #### C BC #### [facility] [address] [place] [address] Dr. Jc Norris Hematocrit (Bld) [Volume fraction] 40.1 % Normal 36.0-48.0 [facility] Comment on above: Performed By: #### C BC #### [facility] [address] [place] [address] Dr. Jc Norris Hemoglobin (Bld) [Mass/Vol] 13.2 g/dL Normal 12.0-16.0 [facility] Comment on above: Performed By: #### C BC #### [facility] [address] [place] [address] Dr. Jc Norris IG # 0.05 10e3/ul Critically high 0.00-0.03 [facility] Comment on above: Performed By: #### C BC #### [facility] [address] [place] [address] Dr. Jc Norris IG % 0.6 % Critically high 0.0-0.5 [facility] Comment on above: Performed By: #### C BC #### [facility] [address] [place] [address] Dr. Jc Norris LYMPH # 1.3 103/ul Normal 1.2-3.8 [facility] Comment on above: Performed By: #### C BC #### [facility] [address] [place] [address] Dr. Jc Norris Lymphocytes/100 WBC (Bld) 16.3 % Critically low 20.5-60.0 [facility] Comment on above: Performed By: #### C BC #### [facility] [address] [place] [address] Dr. Jc Norris MANUAL DIFF REQ NO Normal [facility] Comment on above: Performed By: #### C BC #### [facility] [address] [place] [address] Dr. Jc Norris MCH (RBC) [Entitic mass] 28.1 pg Normal 26.7-34.0 [facility] Comment on above: Performed By: #### C BC #### [facility] [address] [place] [address] Dr. Jc Norris MCHC (RBC) [Mass/Vol] 32.9 g/dL Normal 29.9-35.2 [facility] Comment on above: Performed By: #### C BC #### [facility] [address] [place] [address] Dr. Jc Norris MCV (RBC) [Entitic vol] 85.5 fL Normal 81.0-99.0 [facility] Comment on above: Performed By: #### C BC #### [facility] [address] [place] [address] Dr. Jc Norris MONO # 0.5 103/ul Normal 0.3-0.8 [facility] Comment on above: Performed By: #### C BC #### [facility] [address] [place] [address] Dr. Jc Norris Monocytes/100 WBC (Bld) 6.4 % Normal 1.7-12.0 [facility] Comment on above: Performed By: #### C BC #### [facility] [address] [place] [address] Dr. Jc Norris NEUT # 6.1 103/ul Normal 1.4-6.5 [facility] Comment on above: Performed By: #### C BC #### [facility] [address] [place] [address] Dr. Jc Norris Neutrophils/100 WBC (Bld) 75.6 % Critically high 43.0-75.0 [facility] Comment on above: Performed By: #### C BC #### [facility] [address] [address] [address] Jc Norris Platelet mean volume (Bld) [Entitic vol] 10.7 fL Normal 9.5-13.5 [facility] Comment on above: Performed By: #### C BC #### [facility] [address] [address] [address] Jc Norris PLT 213 103/ul Normal 150-450 [facility] Comment on above: Performed By: #### C BC #### [facility] [address] [place] [address] Dr. Jc Norris RBC 4.69 106/ul Normal 4.20-5.40 [facility] Comment on above: Performed By: #### C BC #### [facility] [address] [place] [address] Dr. Jc Norris WBC 8.1 103/ul Normal 4.0-11.0 [facility] Comment on above: Performed By: #### C BC #### [facility] [address] [place] [address] Dr. Jc Norris CULTURE URINEon 06-30-2022 CULTURE URINE Culture Observations : NO GROWTH. Normal [facility] Comment on above: Performed By: #### U RCX ####[facility] [address] [place] [address]Dr. Jc Norris GLYCOHEMOGLOBIN A1Con 2022 ADA RECOMMENDATION SEE BELOW Normal [facility] Comment on above: Result Comment: ADA RECOMMENDED LIMIT 4.0 - 6.0 ADA THERAPEUTIC TARGET < 7.0 ACTION SUGGESTED > 7.0 Performed By: #### C MP, LIPID, TSH, T7, BNP #### [facility] [address] [place] [address] Dr. Jc Norris Glucose [Mass/Vol] 105 mg/dL Normal [facility] Comment on above: Performed By: #### C MP, LIPID, TSH, T7, BNP #### [facility] [address] [address] [address] Jc Norris HbA1c (Bld) [Mass fraction] 5.3 % Normal 4.5-6.2 [facility] Comment on above: Performed By: #### C MP, LIPID, TSH, T7, BNP #### [facility] [address] [place], [place] [address] Dr. Jc Norris TSHon 06-30-2022 TSH 1.580 uIU/mL Normal 0.358-3.740 [facility] Comment on above: Performed By: #### C MP, LIPID, TSH, T7, BNP #### [facility] [address] [address] [address] Jc Norris TYPE AND SCREENon 06-30-2022 TYPE AND SCREEN Negative Normal [facility] Comment on above: Performed By: #### T NS ####[facility] [address] [place] [address]Dr. Jc Norris US PREG TVon 06-28-2022 US [...] on today's study. Electronically authenticated by: HEATHER ANDERWS Date: 2022-06-28 15:19 Normal [facility] ABO AND RH TYPEon 06-13-2022 ABO and Rh group Nom (Bld) ABO Rh Typing O Rh Positive Normal [facility] Comment on above: Performed By: #### A BORH ####[facility] [address] [place] [address]Dr. Jc Norris CBC AUTO DIFFon 06-13-2022 BASO # 0.0 103/ul Normal 0.0-0.1 [facility] Comment on above: Performed By: #### C BC #### [facility] [address] [place] [address] Dr. Jc Norris Basophils/100 WBC (Bld) 0.2 % Normal 0.2-2.0 [facility] Comment on above: Performed By: #### C BC #### [facility] [address] [place] [address] Dr. Jc Norris EO # 0.1 103/ul Normal 0.0-0.7 [facility] Comment on above: Performed By: #### C BC #### [facility] [address] [place] [address] Dr. Jc Norris Eosinophils/100 WBC (Bld) 0.5 % Critically low 0.9-7.0 [facility] Comment on above: Performed By: #### C BC #### [facility] [address] [place] [address] Dr. Jc Norris Erythrocyte distribution width (RBC) [Ratio] 12.4 % Normal 11.0-15.0 [facility] Comment on above: Performed By: #### C BC #### [facility] [address] [place] [address] Dr. Jc Norris Hematocrit (Bld) [Volume fraction] 41.0 % Normal 36.0-48.0 [facility] Comment on above: Performed By: #### C BC #### [facility] [address] [place] [address] Dr. Jc Norris Hemoglobin (Bld) [Mass/Vol] 13.3 g/dL Normal 12.0-16.0 [facility] Comment on above: Performed By: #### C BC #### [facility] [address] [place] [address] Dr. Jc Norris IG # 0.05 10e3/ul Critically high 0.00-0.03 [facility] Comment on above: Performed By: #### C BC #### [facility] [address] [place] [address] Dr. Jc Norris IG % 0.5 % Normal 0.0-0.5 [facility] Comment on above: Performed By: #### C BC #### [facility] [address] [place] [address] Dr. Jc Norris LYMPH # 1.3 103/ul Normal 1.2-3.8 [facility] Comment on above: Performed By: #### C BC #### [facility] [address] [place] [address] Dr. Jc Norris Lymphocytes/100 WBC (Bld) 12.8 % Critically low 20.5-60.0 [facility] Comment on above: Performed By: #### C BC #### [facility] [address] [place] [address] Dr. Jc Norris MANUAL DIFF REQ NO Normal [facility] Comment on above: Performed By: #### C BC #### [facility] [address] [place] [address] Dr. Jc Norris MCH (RBC) [Entitic mass] 27.9 pg Normal 26.7-34.0 [facility] Comment on above: Performed By: #### C BC #### [facility] [address] [place] [address] Dr. Jc Norris MCHC (RBC) [Mass/Vol] 32.4 g/dL Normal 29.9-35.2 [facility] Comment on above: Performed By: #### C BC #### [facility] [address] [place] [address] Dr. Jc Norris MCV (RBC) [Entitic vol] 86.1 fL Normal 81.0-99.0 [facility] Comment on above: Performed By: #### C BC #### [facility] [address] [place] [address] Dr. Jc Norris MONO # 0.6 103/ul Normal 0.3-0.8 [facility] Comment on above: Performed By: #### C BC #### [facility] [address] [place] [address] Dr. Jc Norris Monocytes/100 WBC (Bld) 6.4 % Normal 1.7-12.0 [facility] Comment on above: Performed By: #### C BC #### [facility] [address] [address] [address] Jc Norris NEUT # 7.9 103/ul Critically high 1.4-6.5 [facility] Comment on above: Performed By: #### C BC #### [facility] [address] [address] [address] Jc Norris Neutrophils/100 WBC (Bld) 79.6 % Critically high 43.0-75.0 [facility] Comment on above: Performed By: #### C BC #### [facility] [address] [address] [address] Jc Norris Platelet mean volume (Bld) [Entitic vol] 11.1 fL Normal 9.5-13.5 [facility] Comment on above: Performed By: #### C BC #### [facility] [address] [address] [address] Jc Norris PLT 232 103/ul Normal 150-450 [facility] Comment on above: Performed By: #### C BC #### [facility] [address] [address] [address] Jc Nroris RBC 4.76 106/ul Normal 4.20-5.40 [facility] Comment on above: Performed By: #### C BC #### [facility] [address] [address] [address] Jc Norris WBC 9.9 103/ul Normal 4.0-11.0 [facility] Comment on above: Performed By: #### C BC #### [facility] [address] [address] [address] Jc Norris CULTURE URINEon 06-13-2022 CULTURE URINE Culture Observations : LIGHT GROWTH OF MIXED GENITAL GENIE. NO POTENTIAL PATHOGENS SEEN. Normal [facility] Comment on above: Performed By: #### U RCX ####[facility] [address] [place] [address]Dr. Jc Norris ER URINE PROFILEon 3 Bilirubin Ql (U) Negative Normal NEGATIVE [facility] Comment on above: Performed By: #### U MICRO, ERUR, PREGU ####[facility] [address] [place] [address]Dr. Jc Norris Clarity (U) CLEAR Normal CLEAR [facility] Comment on above: Performed By: #### U MICRO, ERUR, PREGU ####[facility] [address] [place] [address]Dr. Jc Norris Color (U) LT. YELLOW Normal YELLOW [facility] Comment on above: Performed By: #### U MICRO, ERUR, PREGU ####[facility] [address] [place] [address]Dr. Kathleenkendall Norris ERUAHD A micrscopic examination will be performed if indicated. Normal [facility] Comment on above: Performed By: #### U MICRO, ERUR, PREGU ####[facility] [address] [place] [address]Dr. Jc Norris Glucose Ql (U) Negative Normal NEGATIVE [facility] Comment on above: Performed By: #### U MICRO, ERUR, PREGU ####[facility] [address] [place] [address]Dr. Jc Norris Hemoglobin Ql (U) Negative Normal NEGATIVE [facility] Comment on above: Performed By: #### U MICRO, ERUR, PREGU ####[facility] [address] [place] [address]Dr. Jc Norris Ketones Ql (U) Negative Normal NEGATIVE [facility] Comment on above: Performed By: #### U MICRO, ERUR, PREGU ####[facility] [address] [place] [address]Dr. Kathleenkendall Norris LEUKOCYTES MODERATE Abnormal NEGATIVE [facility] Comment on above: Performed By: #### U MICRO, ERUR, PREGU ####[facility] [address] [place] [address]Dr. Jc Norris Nitrite Ql (U) Negative Normal NEGATIVE [facility] Comment on above: Performed By: #### U MICRO, ERUR, PREGU ####[facility] [address] [place] [address]Dr. Jc Norris pH (U) 5.0 [pH] Normal 5-9 [facility] Comment on above: Performed By: #### U MICRO, ERUR, PREGU ####[facility] [address] [place] [address]Dr. Jc Norris SPEC GRAVITY 1.010 Normal 1.005-<=1.02 5 [facility] Comment on above: Performed By: #### U MICRO, ERUR, PREGU ####[facility] [address] [place] [address]Dr. Jc Norris UA PROTEIN Negative Normal NEGATIVE/ TRACE [facility] Comment on above: Performed By: #### U MICRO, ERUR, PREGU ####[facility] [address] [place] [address]Dr. Jc Norris UR MICRO IND INDICATED Normal [facility] Comment on above: Performed By: #### U MICRO, ERUR, PREGU ####[facility] [address] [place] [address]Dr. Jc Norris Urobilinogen Qn (U) 0.2 {Diamond'U}/dL Normal 0.2 - 1. 0 [facility] Comment on above: Performed By: #### U MICRO, ERUR, PREGU ####[facility] [address] [place] [address]Dr. Jc Norris PREG QUANT HCGon 06-13-2022 HCG QUANT 29986 mIU/mL Normal [facility] Comment on above: Performed By: #### C BC #### [facility] [address] [address] [address] Jc Norris HCG RANGE SEE BELOW Normal [facility] Comment on above: Result Comment: 5-50 0.2-1 WEEK 50-500 1-2 WEEKS 100-5,000 2-3 WEEKS 500-10,000 3-4 WEEKS 1,000-50,000 4-5 WEEKS 10,000-100,000 5-6 WEEKS 15,000-200,000 6-8 WEEKS 10,000-100,000 2-3 MONTHS Performed By: #### C BC #### [facility] [address] [address] [address] Jc Norris URon 06-13-2022 , QUAL Positive Abnormal NEGATIVE [facility] Comment on above: Performed By: #### U MICRO, ERUR, PREGU ####[facility] [address] [place], [place] [address]BmDr. Jc Norris PROF 14(COMP METB)on 023 Albumin [Mass/Vol] 3.6 g/dL Normal 3.4-5.0 [facility] Comment on above: Performed By: #### C BC #### [facility] [address] [place] [address] Dr. Jc Norris Albumin/Globulin [Mass ratio] 1.0 {ratio} Normal [facility] Comment on above: Performed By: #### C BC #### [facility] Laboratory [address] [place] [address] Dr. Jc Norris ALP [Catalytic activity/Vol] 84 U/L Normal 46-116 [facility] Comment on above: Performed By: #### C BC #### [facility] [address] [address] [address] Jc Norris ALT [Catalytic activity/Vol] 18 U/L Normal 14-59 [facility] Comment on above: Performed By: #### C BC #### [facility] [address] [place] [address] Dr. Jc Norris Anion gap [Moles/Vol] 10.9 mmol/L Normal [facility] Comment on above: Performed By: #### C BC #### [facility] [address] [address] [address] Jc Norris AST [Catalytic activity/Vol] 13 U/L Critically low 15-37 [facility] Comment on above: Performed By: #### C BC #### [facility] [address] [address] [address] Jc Norris Bilirubin [Mass/Vol] 0.2 mg/dL Normal 0.2-1.0 [facility] Comment on above: Performed By: #### C BC #### [facility] [address] [address] [address] Jc Norris Calcium [Mass/Vol] 9.1 mg/dL Normal 8.5-10.1 [facility] Comment on above: Performed By: #### C BC #### [facility] [address] [address] [address] Jc Norris Chloride [Moles/Vol] 102 mmol/L Normal 98-107 [facility] Comment on above: Performed By: #### C BC #### [facility] [address] [address] [address] Jc Norris CO2 [Moles/Vol] 25.8 mmol/L Normal 21.0-32.0 [facility] Comment on above: Performed By: #### C BC #### [facility] [address] [place] [address] Dr. Jc Norris Creatinine [Mass/Vol] 0.52 mg/dL Critically low 0.55-1.02 [facility] Comment on above: Performed By: #### C BC #### [facility] [address] [place] [address] Dr. Jc Norris EGFR-AF MONEGASQUE >60 Normal >=60 [facility] Comment on above: Performed By: #### C BC #### [facility] [address] [place] [address] Dr. Jc Norris EGFR-NON AF MONEGASQUE >60 Normal >=60 [facility] Comment on above: Performed By: #### C BC #### [facility] [address] [place] [address] Dr. Jc Norris Globulin (S) [Mass/Vol] 3.5 g/dL Normal [facility] Comment on above: Performed By: #### C BC #### [facility] [address] [place] [address] Dr. Jc Norris Glucose [Mass/Vol] 104 mg/dL Normal 74-106 [facility] Comment on above: Performed By: #### C BC #### [facility] [address] [place] [address] Dr. Jc Norris Potassium [Moles/Vol] 3.7 mmol/L Normal 3.5-5.1 [facility] Comment on above: Performed By: #### C BC #### [facility] [address] [address] [address] Jc Norris Protein [Mass/Vol] 7.1 g/dL Normal 6.4-8.2 [facility] Comment on above: Performed By: #### C BC #### [facility] [address] [address] [address] Jc Norris Sodium [Moles/Vol] 135 mmol/L Critically low 136-145 [facility] Comment on above: Performed By: #### C BC #### [facility] [address] [address] [address] Jc Norris Urea nitrogen [Mass/Vol] 8.0 mg/dL Normal 7.0-18.0 [facility] Comment on above: Performed By: #### C BC #### [facility] [address] [address] [address] Jc Norris Urea nitrogen/Creatinine [Mass ratio] 15.4 mg/mg Normal [facility] Comment on above: Performed By: #### C BC #### [facility] [address] [address] [address] Jc Norris URINE MICROSCOPIC ONLYon BACTERIA NONE SEEN Normal NONE SEEN [facility] Comment on above: Performed By: #### U MICRO, ERUR, PREGU ####[facility] [address] [address]DrEric Norris Bacteria identified Cx Nom (U) INDICATED Normal [facility] Comment on above: Performed By: #### U MICRO, ERUR, PREGU ####[facility] [address] [address]Dr. Jc Norris CAST NONE SEEN Normal NONE SEEN [facility] Comment on above: Performed By: #### U MICRO, ERUR, PREGU ####[facility] [address] [address]Dr. Jc Norris Crystals LM Nom (Urine sed) NONE SEEN Normal NONE SEEN [facility] Comment on above: Performed By: #### U MICRO, ERUR, PREGU ####[facility] [address] [address]Dr. Jc Norris Epithelial cells LM Ql (Urine sed) FEW Abnormal NONE SEEN /RARE [facility] Comment on above: Performed By: #### U MICRO, ERUR, PREGU ####[facility] [address] [address]Dr. Jc Norris MUCOUS TRACE Abnormal NONE SEEN [facility] Comment on above: Performed By: #### U MICRO, ERUR, PREGU ####[facility] [address] [address]Dr. Jc Norris RBC NONE SEEN Abnormal 0-2 [facility] Comment on above: Performed By: #### U MICRO, ERUR, PREGU ####[facility] [address] [place], [place] [address]Dr. Jc Norris WBC 10-20 Abnormal NONE SEEN [facility] Comment on above: Performed By: #### U MICRO, ERUR, PREGU ####[facility] [address] [place], [place] [address]Dr. Jc Norris US PREG TVon 06-13-2022 US [...] NILDA HANDLEY Date: 2022-06-13 14:30 Normal [facility] PREG QUANT HCGon 06-02-2022 HCG QUANT 5289 mIU/mL Normal [facility] Comment on above: Performed By: #### C BC #### [facility] [address] [address] [address] Jc Norris HCG RANGE SEE BELOW Normal [facility] Comment on above: Result Comment: 5-50 0.2-1 WEEK 50-500 1-2 WEEKS 100-5,000 2-3 WEEKS 500-10,000 3-4 WEEKS 1,000-50,000 4-5 WEEKS 10,000-100,000 5-6 WEEKS 15,000-200,000 6-8 WEEKS 10,000-100,000 2-3 MONTHS Performed By: #### C BC #### [facility] [address] [place] [address] Dr. Jc Norris PREG QUANT HCGon 05-31-2022 HCG QUANT 3671 mIU/mL Normal [facility] Comment on above: Performed By: #### C MP, LIPID, TSH, T7, BNP #### [facility] [address] [place] [address] Dr. Jc Norris HCG RANGE SEE BELOW Normal [facility] Comment on above: Result Comment: 5-50 0.2-1 WEEK 50-500 1-2 WEEKS 100-5,000 2-3 WEEKS 500-10,000 3-4 WEEKS 1,000-50,000 4-5 WEEKS 10,000-100,000 5-6 WEEKS 15,000-200,000 6-8 WEEKS 10,000-100,000 2-3 MONTHS Performed By: #### C MP, LIPID, TSH, T7, BNP #### [facility] [address] [place] [address] Dr. Jc Norris PREG QUANT HCGon 05-29-2022 HCG QUANT 1965 mIU/mL Normal [facility] Comment on above: Performed By: #### P REGQNT ####[facility] [address] [address]Dr. Jc Norris HCG RANGE SEE BELOW Normal [facility] Comment on above: Result Comment: 5-50 0.2-1 WEEK 50-500 1-2 WEEKS 100-5,000 2-3 WEEKS 500-10,000 3-4 WEEKS 1,000-50,000 4-5 WEEKS 10,000-100,000 5-6 WEEKS 15,000-200,000 6-8 WEEKS 10,000-100,000 2-3 MONTHS Performed By: #### P REGQNT ####[facility] [address] [place], [place] [address]Xi. Jc Norris US PELVIS AND TRANSVAGon US [...] NILDA HANDLEY Date: 2022-05-04 14:31 Normal [facility] CULTURE URINEon 04-07-2022 CULTURE URINE Isolate 1 [...] Trimethoprim/Sulfamet hoxazole >=320 R F Normal [facility] Comment on above: Performed By: #### U RCX ####[facility] [address] [place], [place] [address]Yv. Jc Norris ER URINE PROFILEon 3 Bilirubin Ql (U) Negative Normal NEGATIVE [facility] Comment on above: Performed By: #### C MP, LIPID, TSH, T7, BNP #### [facility] [address] [address] [address] Jc Norris Clarity (U) SL CLOUDY Abnormal CLEAR [facility] Comment on above: Performed By: #### C MP, LIPID, TSH, T7, BNP #### [facility] [address] [address] [address] Jc Norris Color (U) LT. YELLOW Normal YELLOW [facility] Comment on above: Performed By: #### C MP, LIPID, TSH, T7, BNP #### [facility] [address] [address] [address] Jc Norris ERUFRANCOISE A micrscopic examination will be performed if indicated. Normal [facility] Comment on above: Performed By: #### C MP, LIPID, TSH, T7, BNP #### [facility] [address] [address] [address] Jc Norris Glucose Ql (U) Negative Normal NEGATIVE [facility] Comment on above: Performed By: #### C MP, LIPID, TSH, T7, BNP #### [facility] [address] [address] [address] Jc Norris Hemoglobin Ql (U) MODERATE Abnormal NEGATIVE [facility] Comment on above: Performed By: #### C MP, LIPID, TSH, T7, BNP #### [facility] [address] [address] [address] Jc Norris Ketones Ql (U) Negative Normal NEGATIVE [facility] Comment on above: Performed By: #### C MP, LIPID, TSH, T7, BNP #### [facility] [address] [address] [address] Jc Norris LEUKOCYTES SMALL Abnormal NEGATIVE [facility] Comment on above: Performed By: #### C MP, LIPID, TSH, T7, BNP #### [facility] [address] [address] [address] Jc Norris Nitrite Ql (U) Positive Abnormal NEGATIVE [facility] Comment on above: Performed By: #### C MP, LIPID, TSH, T7, BNP #### [facility] [address] [address] [address] Jc Norris pH (U) 5.5 [pH] Normal 5-9 [facility] Comment on above: Performed By: #### C MP, LIPID, TSH, T7, BNP #### [facility] [address] [place] [address] Dr. Jc Norris SPEC GRAVITY 1.025 Normal 1.005-<=1.02 5 [facility] Comment on above: Performed By: #### C MP, LIPID, TSH, T7, BNP #### [facility] [address] [place] [address] Dr. Jc Norris UA PROTEIN Negative Normal NEGATIVE/ TRACE [facility] Comment on above: Performed By: #### C MP, LIPID, TSH, T7, BNP #### [facility] [address] [place] [address] Dr. Jc Norris UR MICRO IND INDICATED Normal [facility] Comment on above: Performed By: #### C MP, LIPID, TSH, T7, BNP #### [facility] [address] [place] [address] Dr. Jc Norris Urobilinogen Qn (U) 0.2 {Diamond'U}/dL Normal 0.2 - 1. 0 [facility] Comment on above: Performed By: #### C MP, LIPID, TSH, T7, BNP #### [facility] [address] [place] [address] Dr. Jc Norris URon 04-05-2022 , QUAL Negative Normal NEGATIVE [facility] Comment on above: Performed By: #### C MP, LIPID, TSH, T7, BNP #### [facility] [address] [place] [address] Dr. Jc Norris URINE MICROSCOPIC ONLYon BACTERIA MODERATE Abnormal NONE SEEN [facility] Comment on above: Performed By: #### C MP, LIPID, TSH, T7, BNP #### [facility] [address] [place] [address] Dr. Jc Norris Bacteria identified Cx Nom (U) INDICATED Normal [facility] Comment on above: Performed By: #### C MP, LIPID, TSH, T7, BNP #### [facility] [address] [address] [address] Jc Norris CAST NONE SEEN Normal NONE SEEN [facility] Comment on above: Performed By: #### C MP, LIPID, TSH, T7, BNP #### [facility] [address] [address] [address] Jc Norris Crystals LM Nom (Urine sed) NONE SEEN Normal NONE SEEN [facility] Comment on above: Performed By: #### C MP, LIPID, TSH, T7, BNP #### [facility] [address] [place] [address] Dr. Jc Norris Epithelial cells LM Ql (Urine sed) FEW Abnormal NONE SEEN /RARE [facility] Comment on above: Performed By: #### C MP, LIPID, TSH, T7, BNP #### [facility] [address] [place] [address] Dr. Jc Norris MUCOUS TRACE Abnormal NONE SEEN [facility] Comment on above: Performed By: #### C MP, LIPID, TSH, T7, BNP #### [facility] [address] [place] [address] Dr. Jc Norris RBC 50-75 Abnormal 0-2 [facility] Comment on above: Performed By: #### C MP, LIPID, TSH, T7, BNP #### [facility] [address] [place] [address] Dr. Jc Norris WBC 75-100 Abnormal NONE SEEN [facility] Comment on above: Performed By: #### C MP, LIPID, TSH, T7, BNP #### [facility] [address] [place] [address] Dr. Jc Norris MRI LSPINE WO CONon [...] NILDA HANDLEY Date: 2022-03-07 06:17 Normal [facility] CARDIAC KERI 3-6on 2 CK [Catalytic activity/Vol] 64 U/L Normal 26-192 [facility] Comment on above: Performed By: #### C MP, LIPID, TSH, T7, BNP #### [facility] [address] [place] [address] Dr. Jc Norris CK.MB [Mass/Vol] 0.81 ng/mL Normal <=3.60 [facility] Comment on above: Performed By: #### C MP, LIPID, TSH, T7, BNP #### [facility] [address] [place] [address] Dr. Jc Norris HSTROP 4.3 pg/mL Normal 4.0-51.3 [facility] Comment on above: Result Comment: CUT- OFF POINTS HAVE BEEN ESTABLISHED BASED ON THE FOURTH UNIVERSAL DEFINITIONS OF MYOCARDIAL INFARCTION. THE UPPER REFERENCE LIMIT (URL) OF TROPONIN, DEFINED THE 99TH PERCENTILE OF cTnI DISTRIBUTION IN A REFERENCE POPULATION, HAS BEEN CONFIRMED THE DECISION THRESHOLD FOR [place] DIAGNOSIS. Performed By: #### C MP, LIPID, TSH, T7, BNP #### [facility] [address] [place] [address] Dr. Jc Norris CARDIAC KERI ADMITon 022 CK [Catalytic activity/Vol] 80 U/L Normal 26-192 [facility] Comment on above: Performed By: #### C BC #### [facility] [address] [place] [address] Dr. Jc Norris CK.MB [Mass/Vol] 0.89 ng/mL Normal <=3.60 [facility] Comment on above: Performed By: #### C BC #### [facility] [address] [place] [address] Dr. Jc Norris HSTROP 4.3 pg/mL Normal 4.0-51.3 [facility] Comment on above: Result Comment: CUT- OFF POINTS HAVE BEEN ESTABLISHED BASED ON THE FOURTH UNIVERSAL DEFINITIONS OF MYOCARDIAL INFARCTION. THE UPPER REFERENCE LIMIT (URL) OF TROPONIN, DEFINED THE 99TH PERCENTILE OF cTnI DISTRIBUTION IN A REFERENCE POPULATION, HAS BEEN CONFIRMED THE DECISION THRESHOLD FOR [place] DIAGNOSIS. Performed By: #### C BC #### [facility] [address] [place] [address] Dr. Jc Norris ANITHA 21 ng/mL Normal 9-82 [facility] Comment on above: Performed By: #### C BC #### [facility] [address] [place] [address] Dr. Jc Norris CBC AUTO DIFFon 12-26-2021 BASO # 0.1 103/ul Normal 0.0-0.1 [facility] Comment on above: Performed By: #### C BC #### [facility] [address] [place] [address] Dr. Jc Norris Basophils/100 WBC (Bld) 0.5 % Normal 0.2-2.0 [facility] Comment on above: Performed By: #### C BC #### [facility] [address] [place] [address] Dr. Jc Norris EO # 0.3 103/ul Normal 0.0-0.7 [facility] Comment on above: Performed By: #### C BC #### [facility] [address] [place] [address] Dr. Jc Norris Eosinophils/100 WBC (Bld) 2.9 % Normal 0.9-7.0 [facility] Comment on above: Performed By: #### C BC #### [facility] [address] [place] [address] Dr. Jc Norris Erythrocyte distribution width (RBC) [Ratio] 12.7 % Normal 11.0-15.0 [facility] Comment on above: Performed By: #### C BC #### [facility] [address] [place] [address] Dr. Jc Norris Hematocrit (Bld) [Volume fraction] 40.1 % Normal 36.0-48.0 [facility] Comment on above: Performed By: #### C BC #### [facility] [address] [place] [address] Dr. Jc Norris Hemoglobin (Bld) [Mass/Vol] 13.4 g/dL Normal 12.0-16.0 [facility] Comment on above: Performed By: #### C BC #### [facility] [address] [place] [address] Dr. Jc Norris IG # 0.03 10e3/ul Normal 0.00-0.03 [facility] Comment on above: Performed By: #### C BC #### [facility] [address] [place] [address] Dr. Jc Norris IG % 0.3 % Normal 0.0-0.5 [facility] Comment on above: Performed By: #### C BC #### [facility] [address] [place] [address] Dr. Jc Norris LYMPH # 3.4 103/ul Normal 1.2-3.8 [facility] Comment on above: Performed By: #### C BC #### [facility] [address] [place] [address] Dr. Jc Norris Lymphocytes/100 WBC (Bld) 35.9 % Normal 20.5-60.0 [facility] Comment on above: Performed By: #### C BC #### [facility] [address] [place] [address] Dr. Jc Norris MANUAL DIFF REQ NO Normal [facility] Comment on above: Performed By: #### C BC #### [facility] [address] [place] [address] Dr. Jc Norris MCH (RBC) [Entitic mass] 28.8 pg Normal 26.7-34.0 [facility] Comment on above: Performed By: #### C BC #### [facility] [address] [address] [address] Jc Norris MCHC (RBC) [Mass/Vol] 33.4 g/dL Normal 29.9-35.2 [facility] Comment on above: Performed By: #### C BC #### [facility] [address] [address] [address] Jc Norris MCV (RBC) [Entitic vol] 86.1 fL Normal 81.0-99.0 [facility] Comment on above: Performed By: #### C BC #### [facility] [address] [address] [address] Jc Norris MONO # 0.9 103/ul Critically high 0.3-0.8 [facility] Comment on above: Performed By: #### C BC #### [facility] [address] [address] [address] Jc Norris Monocytes/100 WBC (Bld) 9.1 % Normal 1.7-12.0 [facility] Comment on above: Performed By: #### C BC #### [facility] [address] [address] [address] Jc Norris NEUT # 4.8 103/ul Normal 1.4-6.5 [facility] Comment on above: Performed By: #### C BC #### [facility] [address] [address] [address] Jc Norris Neutrophils/100 WBC (Bld) 51.3 % Normal 43.0-75.0 [facility] Comment on above: Performed By: #### C BC #### [facility] [address] [address] [address] Jc Norris Platelet mean volume (Bld) [Entitic vol] 10.9 fL Normal 9.5-13.5 [facility] Comment on above: Performed By: #### C BC #### [facility] [address] [address] [address] Jc Norris PLT 256 103/ul Normal 150-450 [facility] Comment on above: Performed By: #### C BC #### [facility] [address] [place] [address] Dr. Jc Norris RBC 4.66 106/ul Normal 4.20-5.40 [facility] Comment on above: Performed By: #### C BC #### [facility] [address] [place] [address] Dr. Jc Norris WBC 9.4 103/ul Normal 4.0-11.0 [facility] Comment on above: Performed By: #### C BC #### [facility] [address] [place] [address] Dr. Jc Norris D-DIMERon 12-26-2021 D-DIMER 0.22 mg/L FEU Normal <=0.59 [facility] Comment on above: Performed By: #### C BC #### [facility] [address] [place] [address] Dr. Jc Norris D-DIMER COMMENTS SEE BELOW Normal [facility] Comment on above: Result Comment: Incr eases [...] hospitalization. Performed By: #### C BC #### [facility] [address] [place] [address] Dr. Jc Norris PROF CHEM 8 (BAS METB)on Anion gap [Moles/Vol] 8.7 mmol/L Normal [facility] Comment on above: Performed By: #### C BC #### [facility] [address] [place] [address] Dr. Jc Norris Calcium [Mass/Vol] 9.2 mg/dL Normal 8.5-10.1 [facility] Comment on above: Performed By: #### C BC #### [facility] [address] [place], [place] [id number] Dr. Jc Norris Chloride [Moles/Vol] 105 mmol/L Normal 98-107 [facility] Comment on above: Performed By: #### C BC #### [facility] [address] [address] [address] Jc Norris CO2 [Moles/Vol] 27.9 mmol/L Normal 21.0-32.0 [facility] Comment on above: Performed By: #### C BC #### [facility] [address] [place] [address] Dr. Jc Norris Creatinine [Mass/Vol] 0.67 mg/dL Normal 0.55-1.02 [facility] Comment on above: Performed By: #### C BC #### [facility] [address] [place] [address] Dr. Jc Norris EGFR-AF MONEGASQUE >60 Normal >=60 [facility] Comment on above: Performed By: #### C BC #### [facility] [address] [place] [address] Dr. Jc Norris EGFR-NON AF MONEGASQUE >60 Normal >=60 [facility] Comment on above: Performed By: #### C BC #### [facility] [address] [place] [address] Dr. Jc Norris Glucose [Mass/Vol] 86 mg/dL Normal 74-106 [facility] Comment on above: Performed By: #### C BC #### [facility] [address] [place] [address] Dr. Jc Norris Potassium [Moles/Vol] 3.6 mmol/L Normal 3.5-5.1 [facility] Comment on above: Performed By: #### C BC #### [facility] [address] [place] [address] Dr. Jc Norris Sodium [Moles/Vol] 138 mmol/L Normal 136-145 [facility] Comment on above: Performed By: #### C BC #### [facility] [address] [place] [address] Dr. Jc Norris Urea nitrogen [Mass/Vol] 11.0 mg/dL Normal 7.0-18.0 [facility] Comment on above: Performed By: #### C BC #### [facility] [address] [place], [place] [address] Dr. Jc Norris Urea nitrogen/Creatinine [Mass ratio] 16.4 mg/mg Normal [facility] Comment on above: Performed By: #### C BC #### [facility] [address] [place], [place] [address] Dr. Jc Norris XR CHEST 2 Von [...] by: ALEK MONTELONGO Date: 2021-12-25 23:54 Normal [facility] ECHOCARDIO M/2D COMPLETEon 1 ECHOCARDIO M/2D COMPLETE Patient: MARIANGEL CORTES. Exam Date: 12/06/2021 : 1995 Gender:F Ordering : DR LONA GOMEZ . Admission #: [id number] Family : Order #: [id number] CLICK HERE TO VIEW EXAM ECHOCARDIOGRAM REPORT [...] M.D. on 12/11/2021 at 15:55 Normal [facility] BNPon 11-24-2021 Natriuretic peptide B (Bld) [Mass/Vol] 7.0 pg/mL Normal <=450.0 [facility] Comment on above: Performed By: #### C MP, LIPID, TSH, T7, BNP #### [facility] [address] [address] [address] Jc Norris CBC AUTO DIFFon 11-24-2021 BASO # 0.0 103/ul Normal 0.0-0.1 [facility] Comment on above: Performed By: #### C BC ####[facility] [address] [address]Dr. Jc Norris Basophils/100 WBC (Bld) 0.3 % Normal 0.2-2.0 [facility] Comment on above: Performed By: #### C BC ####[facility] [address] [id number] Norris EO # 0.1 103/ul Normal 0.0-0.7 [facility] Comment on above: Performed By: #### C BC ####[facility] [facility] [address] [place] [address]DrEric Norris Eosinophils/100 WBC (Bld) 2.1 % Normal 0.9-7.0 [facility] Comment on above: Performed By: #### C BC ####[facility] [address] [place] [address]Dr. Jc Norris Erythrocyte distribution width (RBC) [Ratio] 12.9 % Normal 11.0-15.0 [facility] Comment on above: Performed By: #### C BC ####[facility] [address] [place] [address]Dr. Jc Norris Hematocrit (Bld) [Volume fraction] 42.3 % Normal 36.0-48.0 [facility] Comment on above: Performed By: #### C BC ####[facility] [address] [place], [place] [address]Dr. Jc Norris Hemoglobin (Bld) [Mass/Vol] 13.6 g/dL Normal 12.0-16.0 [facility] Comment on above: Performed By: #### C BC ####[facility] [address] [place], [place] [address]Dr. Jc Norris IG # 0.03 10e3/ul Normal 0.00-0.03 [facility] Comment on above: Performed By: #### C BC ####[facility] [address] [place], [place] [address]Dr. Jc Norris IG % 0.5 % Normal 0.0-0.5 [facility] Comment on above: Performed By: #### C BC ####[facility] [address] [place], [place] [address]Dr. Jc Norris LYMPH # 1.7 103/ul Normal 1.2-3.8 [facility] Comment on above: Performed By: #### C BC ####[facility] [address] [place], [place] [address]Dr. Jc Norris Lymphocytes/100 WBC (Bld) 29.9 % Normal 20.5-60.0 [facility] Comment on above: Performed By: #### C BC ####[facility] [address] [place], [place] [address]Dr. Jc Norris MANUAL DIFF REQ NO Normal [facility] Comment on above: Performed By: #### C BC ####[facility] [address] [place] [id number]. Jc Norris MCH (RBC) [Entitic mass] 28.7 pg Normal 26.7-34.0 [facility] Comment on above: Performed By: #### C BC ####[facility] [address] [place] [id number]. Jc Norris MCHC (RBC) [Mass/Vol] 32.2 g/dL Normal 29.9-35.2 [facility] Comment on above: Performed By: #### C BC ####[facility] [address] [place] [id number]. Jc Norris MCV (RBC) [Entitic vol] 89.2 fL Normal 81.0-99.0 [facility] Comment on above: Performed By: #### C BC ####[facility] [address] [place], [place] [address]Dr. Jc Jr MONO # 0.4 103/ul Normal 0.3-0.8 [facility] Comment on above: Performed By: #### C BC ####[facility] [address] [place] [address]Dr. Kathleenkendall Norris Monocytes/100 WBC (Bld) 7.4 % Normal 1.7-12.0 [facility] Comment on above: Performed By: #### C BC ####[facility] Of[address]zbsfxf[address] [place], [place] [address]Dr. Jc Norris NEUT # 3.5 103/ul Normal 1.4-6.5 [facility] Comment on above: Performed By: #### C BC ####[facility] [address] [place], [place] [address]Dr. Kathleenkendall Norris Neutrophils/100 WBC (Bld) 59.8 % Normal 43.0-75.0 [facility] Comment on above: Performed By: #### C BC ####[facility] [address]vol[address] [place], [place] [address]Dr. Jc Jr Platelet mean volume (Bld) [Entitic vol] 10.3 fL Normal 9.5-13.5 [facility] Comment on above: Performed By: #### C BC ####[facility] [address] [place], [place] [address]Ru. Kathleenkendall Norris PLT 241 103/ul Normal 150-450 [facility] Comment on above: Performed By: #### C BC ####[facility] [address] [place], [place] [address]Fw. Jc Norris RBC 4.74 106/ul Normal 4.20-5.40 [facility] Comment on above: Performed By: #### C BC ####[facility] [address] [place], [place] [address]Tf. Jc Norris WBC 5.8 103/ul Normal 4.0-11.0 [facility] Comment on above: Performed By: #### C BC ####[facility] [address] [place] [id number] Norris FREE THYROXINE INDEX T7on FTI 2.00 Normal 1.30-4.50 [facility] Comment on above: Performed By: #### C MP, LIPID, TSH, T7, BNP #### [facility] [address] [address] [address] Jc Norris T3U 29.0 % Critically low 30.0-39.0 [facility] Comment on above: Performed By: #### C MP, LIPID, TSH, T7, BNP #### [facility] [address] [address] [address] Jc Norris T4 [Mass/Vol] 6.90 ug/dL Normal 4.80-13.90 [facility] Comment on above: Performed By: #### C MP, LIPID, TSH, T7, BNP #### [facility] [address] [address] [address] Jc Norris GLYCOHEMOGLOBIN A1Con 2021 ADA RECOMMENDATION SEE BELOW Normal [facility] Comment on above: Result Comment: ADA RECOMMENDED LIMIT 4.0 - 6.0 ADA THERAPEUTIC TARGET < 7.0 ACTION SUGGESTED > 7.0 Performed By: #### A 1C ####[facility] [address] [place] [address]Dr. Jc Norris Glucose [Mass/Vol] 103 mg/dL Normal [facility] Comment on above: Performed By: #### A 1C ####[facility] [address] [place] [address]Dr. Jc Norris HbA1c (Bld) [Mass fraction] 5.2 % Normal 4.5-6.2 [facility] Comment on above: Performed By: #### A 1C ####[facility] [address] [place] [address]Dr. Jc Norris IRONon 11-24-2021 Iron [Mass/Vol] 45.0 ug/dL Critically low 50.0-170.0 [facility] Comment on above: Performed By: #### I KINA ####[facility] [address] [place] [address]DrEric Norris LIPID PROFILEon 11-24-2021 CHOL-HDL RATIO NORM SEE BELOW Normal [facility] Comment on above: Result Comment: 3.3 - 4.4 LOW RISK 4.4 - 7.1 AVERAGE RISK 7.1 - 11.0 MODERATE RISK >11.0 HIGH RISK Performed By: #### C MP, LIPID, TSH, T7, BNP #### [facility] [address] [address] [address] Jc Norris Cholesterol [Mass/Vol] 169 mg/dL Normal <=200 [facility] Comment on above: Performed By: #### C MP, LIPID, TSH, T7, BNP #### [facility] [address] [address] [address] Jc Norris Cholesterol in HDL [Mass/Vol] 44 mg/dL Normal 40-60 [facility] Comment on above: Performed By: #### C MP, LIPID, TSH, T7, BNP #### [facility] [address] [address] [address] Jc Norris Cholesterol in LDL [Mass/Vol] 106.2 mg/dL Normal [facility] Comment on above: Performed By: #### C MP, LIPID, TSH, T7, BNP #### [facility] [address] [address] [address] Jc Norris Cholesterol.total/Chol esterol in HDL [Mass ratio] 3.8 {ratio} Normal [facility] Comment on above: Performed By: #### C MP, LIPID, TSH, T7, BNP #### [facility] [address] [address] [address] Jc Norris HDL NORMAL > or = 60 mg/dl - LO W CARDIOVASCULAR RISK <40 mg/dl - HIGH CARDIOVASCULAR RISK Normal [facility] Comment on above: Performed By: #### C MP, LIPID, TSH, T7, BNP #### [facility] [address] [address] [address] Jc Norris LDL CALC NORMAL SEE BELOW Normal [facility] Comment on above: Result Comment: <100 mg/dl OPTIMAL 100 - 129 mg/dl NEAR OR ABOVE OPTIMAL 130 - 159 mg/dl BORDERLINE HIGH 160 - 189 mg/dl HIGH >190 mg/dl VERY HIGH Performed By: #### C MP, LIPID, TSH, T7, BNP #### [facility] [address] [address] [address] Jc Norris Triglyceride [Mass/Vol] 94 mg/dL Normal <=150 [facility] Comment on above: Performed By: #### C MP, LIPID, TSH, T7, BNP #### [facility] [address] [address] [address] Jc Norris VLDL CALC 18.8 mg/dL Normal [facility] Comment on above: Performed By: #### C MP, LIPID, TSH, T7, BNP #### [facility] [address] [address] [address] Jc Norris PROF 14(COMP METB)on 022 Albumin [Mass/Vol] 3.8 g/dL Normal 3.4-5.0 [facility] Comment on above: Performed By: #### C MP, LIPID, TSH, T7, BNP #### [facility] [address] [place] [address] Dr. Jc Norris Albumin/Globulin [Mass ratio] 1.1 {ratio} Normal [facility] Comment on above: Performed By: #### C MP, LIPID, TSH, T7, BNP #### [facility] [address] [place] [address] Dr. Jc Norris ALP [Catalytic activity/Vol] 109 U/L Normal 46-116 [facility] Comment on above: Performed By: #### C MP, LIPID, TSH, T7, BNP #### [facility] [address] [place] [address] Dr. Jc Norris ALT [Catalytic activity/Vol] 20 U/L Normal 14-59 [facility] Comment on above: Performed By: #### C MP, LIPID, TSH, T7, BNP #### [facility] [address] [place] [address] Dr. Jc Norris Anion gap [Moles/Vol] 8.3 mmol/L Normal [facility] Comment on above: Performed By: #### C MP, LIPID, TSH, T7, BNP #### [facility] [address] [place] [address] Dr. Jc Norris AST [Catalytic activity/Vol] 12 U/L Critically low 15-37 [facility] Comment on above: Performed By: #### C MP, LIPID, TSH, T7, BNP #### [facility] [address] [place] [address] Dr. Jc Norris Bilirubin [Mass/Vol] 0.3 mg/dL Normal 0.2-1.0 [facility] Comment on above: Performed By: #### C MP, LIPID, TSH, T7, BNP #### [facility] [address] [place] [address] Dr. Jc Norris Calcium [Mass/Vol] 8.9 mg/dL Normal 8.5-10.1 [facility] Comment on above: Performed By: #### C MP, LIPID, TSH, T7, BNP #### [facility] [address] [place] [address] Dr. Jc Norris Chloride [Moles/Vol] 105 mmol/L Normal 98-107 [facility] Comment on above: Performed By: #### C MP, LIPID, TSH, T7, BNP #### [facility] [address] [place] [address] Dr. Jc Norris CO2 [Moles/Vol] 29.8 mmol/L Normal 21.0-32.0 [facility] Comment on above: Performed By: #### C MP, LIPID, TSH, T7, BNP #### [facility] [address] [place] [address] Dr. Jc Norris Creatinine [Mass/Vol] 0.67 mg/dL Normal 0.55-1.02 [facility] Comment on above: Performed By: #### C MP, LIPID, TSH, T7, BNP #### [facility] [address] [place] [address] Dr. Jc Norris EGFR-AF MONEGASQUE >60 Normal >=60 [facility] Comment on above: Performed By: #### C MP, LIPID, TSH, T7, BNP #### [facility] [address] [place] [address] Dr. Jc Norris EGFR-NON AF MONEGASQUE >60 Normal >=60 [facility] Comment on above: Performed By: #### C MP, LIPID, TSH, T7, BNP #### [facility] [address] [place] [address] Dr. Jc Norris Globulin (S) [Mass/Vol] 3.5 g/dL Normal [facility] Comment on above: Performed By: #### C MP, LIPID, TSH, T7, BNP #### [facility] [address] [place] [address] Dr. Jc Norris Glucose [Mass/Vol] 107 mg/dL Critically high 74-106 [facility] Comment on above: Performed By: #### C MP, LIPID, TSH, T7, BNP #### [facility] [address] [place] [address] Dr. Jc Norris Potassium [Moles/Vol] 4.1 mmol/L Normal 3.5-5.1 [facility] Comment on above: Performed By: #### C MP, LIPID, TSH, T7, BNP #### [facility] [address] [place] [address] Dr. Jc Norris Protein [Mass/Vol] 7.3 g/dL Normal 6.4-8.2 [facility] Comment on above: Performed By: #### C MP, LIPID, TSH, T7, BNP #### [facility] [address] [place] [address] Dr. Jc Norris Sodium [Moles/Vol] 139 mmol/L Normal 136-145 [facility] Comment on above: Performed By: #### C MP, LIPID, TSH, T7, BNP #### [facility] [address] [place] [address] Dr. Jc Norris Urea nitrogen [Mass/Vol] 11.0 mg/dL Normal 7.0-18.0 [facility] Comment on above: Performed By: #### C MP, LIPID, TSH, T7, BNP #### [facility] [address] [place] [address] Dr. Jc Norris Urea nitrogen/Creatinine [Mass ratio] 16.4 mg/mg Normal [facility] Comment on above: Performed By: #### C MP, LIPID, TSH, T7, BNP #### [facility] [address] [place] [address] Dr. Jc Norris TSHon 11-24-2021 TSH 1.465 uIU/mL Normal 0.358-3.740 [facility] Comment on above: Performed By: #### C MP, LIPID, TSH, T7, BNP #### [facility] [address] [place] [address] Dr. Jc Norris T4 LABCORPon 10-31-2021 T4 [Mass/Vol] 5.8 ug/dL Normal 4.5-12.0 [facility] Comment on above: Performed By: #### C BC #### [facility] [address] [place] [address] Dr. Jc Norris CBC AUTO DIFFon 10-30-2021 BASO # 0.1 103/ul Normal 0.0-0.1 [facility] Comment on above: Performed By: #### C BC #### [facility] [address] [place] [address] Dr. Jc Norris Basophils/100 WBC (Bld) 0.4 % Normal 0.2-2.0 [facility] Comment on above: Performed By: #### C BC #### [facility] [address] [address] [address] Jc Norris EO # 0.2 103/ul Normal 0.0-0.7 [facility] Comment on above: Performed By: #### C BC #### [facility] [address] [address] [address] Jc Norris Eosinophils/100 WBC (Bld) 1.4 % Normal 0.9-7.0 [facility] Comment on above: Performed By: #### C BC #### [facility] [address] [place] [address] Dr. Jc Norris Erythrocyte distribution width (RBC) [Ratio] 13.0 % Normal 11.0-15.0 [facility] Comment on above: Performed By: #### C BC #### [facility] [address] [place] [address] Dr. Jc Norris Hematocrit (Bld) [Volume fraction] 42.4 % Normal 36.0-48.0 [facility] Comment on above: Performed By: #### C BC #### [facility] [address] [place] [address] Dr. Jc Norris Hemoglobin (Bld) [Mass/Vol] 13.2 g/dL Normal 12.0-16.0 [facility] Comment on above: Performed By: #### C BC #### [facility] [address] [address] [address] Jc Norris IG # 0.18 10e3/ul Critically high 0.00-0.03 [facility] Comment on above: Performed By: #### C BC #### [facility] [address] [address] [address] Jc Norris IG % 1.4 % Critically high 0.0-0.5 [facility] Comment on above: Performed By: #### C BC #### [facility] [address] [place] [address] Dr. Jc Norris LYMPH # 4.2 103/ul Critically high 1.2-3.8 [facility] Comment on above: Performed By: #### C BC #### [facility] [address] [place] [address] Dr. Jc Norris Lymphocytes/100 WBC (Bld) 31.5 % Normal 20.5-60.0 [facility] Comment on above: Performed By: #### C BC #### [facility] [address] [place] [address] Dr. Jc Norris MANUAL DIFF REQ NO Normal [facility] Comment on above: Performed By: #### C BC #### [facility] [address] [place] [address] Dr. Jc Norris MCH (RBC) [Entitic mass] 27.9 pg Normal 26.7-34.0 [facility] Comment on above: Performed By: #### C BC #### [facility] [address] [place] [address] Dr. Jc Norris MCHC (RBC) [Mass/Vol] 31.1 g/dL Normal 29.9-35.2 [facility] Comment on above: Performed By: #### C BC #### [facility] [address] [place] [address] Dr. Jc Norris MCV (RBC) [Entitic vol] 89.6 fL Normal 81.0-99.0 [facility] Comment on above: Performed By: #### C BC #### [facility] [address] [place] [address] Dr. Jc Norris MONO # 1.3 103/ul Critically high 0.3-0.8 [facility] Comment on above: Performed By: #### C BC #### [facility] [address] [place] [address] Dr. Jc Norris Monocytes/100 WBC (Bld) 9.9 % Normal 1.7-12.0 [facility] Comment on above: Performed By: #### C BC #### [facility] [address] [place] [address] Dr. Jc Norris NEUT # 7.4 103/ul Critically high 1.4-6.5 [facility] Comment on above: Performed By: #### C BC #### [facility] [address] [address] [address] Jc Norris Neutrophils/100 WBC (Bld) 55.4 % Normal 43.0-75.0 [facility] Comment on above: Performed By: #### C BC #### [facility] [address] [address] [address] Jc Norris Platelet mean volume (Bld) [Entitic vol] 10.2 fL Normal 9.5-13.5 [facility] Comment on above: Performed By: #### C BC #### [facility] [address] [place] [address] Dr. Jc Norris PLT 265 103/ul Normal 150-450 [facility] Comment on above: Performed By: #### C BC #### [facility] [address] [place] [address] Dr. Jc Norris RBC 4.73 106/ul Normal 4.20-5.40 [facility] Comment on above: Performed By: #### C BC #### [facility] [address] [place] [address] Dr. Jc Norris WBC 13.3 103/ul Critically high 4.0-11.0 [facility] Comment on above: Performed By: #### C BC #### [facility] [address] [place] [address] Dr. Jc Norris FREE T3on 10-30-2021 FREE T3 2.18 pg/mlL Normal 2.18-3.98 [facility] Comment on above: Performed By: #### C MP, LIPID, TSH, T7, BNP #### [facility] [address] [place] [address] Dr. Jc Norris PROF 14(COMP METB)on 022 Albumin [Mass/Vol] 3.6 g/dL Normal 3.4-5.0 [facility] Comment on above: Performed By: #### C MP, LIPID, TSH, T7, BNP #### [facility] [address] [place] [address] Dr. Jc Norris Albumin/Globulin [Mass ratio] 1.1 {ratio} Normal [facility] Comment on above: Performed By: #### C MP, LIPID, TSH, T7, BNP #### [facility] [address] [place] [address] Dr. Jc Norris ALP [Catalytic activity/Vol] 93 U/L Normal 46-116 [facility] Comment on above: Performed By: #### C MP, LIPID, TSH, T7, BNP #### [facility] [address] [place] [address] Dr. Jc Norris ALT [Catalytic activity/Vol] 22 U/L Normal 14-59 [facility] Comment on above: Performed By: #### C MP, LIPID, TSH, T7, BNP #### [facility] [address] [place] [address] Dr. Jc Norris Anion gap [Moles/Vol] 9.4 mmol/L Normal [facility] Comment on above: Performed By: #### C MP, LIPID, TSH, T7, BNP #### [facility] [address] [place] [address] Dr. Jc Norris AST [Catalytic activity/Vol] 13 U/L Critically low 15-37 [facility] Comment on above: Performed By: #### C MP, LIPID, TSH, T7, BNP #### [facility] [address] [place] [address] Dr. Jc Norris Bilirubin [Mass/Vol] 0.3 mg/dL Normal 0.2-1.0 [facility] Comment on above: Performed By: #### C MP, LIPID, TSH, T7, BNP #### [facility] [address] [place] [address] Dr. Jc Norris Calcium [Mass/Vol] 9.0 mg/dL Normal 8.5-10.1 [facility] Comment on above: Performed By: #### C MP, LIPID, TSH, T7, BNP #### [facility] [address] [place] [address] Dr. Jc Norris Chloride [Moles/Vol] 102 mmol/L Normal 98-107 [facility] Comment on above: Performed By: #### C MP, LIPID, TSH, T7, BNP #### [facility] [address] [place] [address] Dr. Jc Norris CO2 [Moles/Vol] 32.4 mmol/L Critically high 21.0-32.0 [facility] Comment on above: Performed By: #### C MP, LIPID, TSH, T7, BNP #### [facility] [address] [place] [address] Dr. Jc Norris Creatinine [Mass/Vol] 0.67 mg/dL Normal 0.55-1.02 [facility] Comment on above: Performed By: #### C MP, LIPID, TSH, T7, BNP #### [facility] [address] [place] [address] Dr. Jc Norris EGFR-AF MONEGASQUE >60 Normal >=60 [facility] Comment on above: Performed By: #### C MP, LIPID, TSH, T7, BNP #### [facility] [address] [place] [address] Dr. Jc Norris EGFR-NON AF MONEGASQUE >60 Normal >=60 [facility] Comment on above: Performed By: #### C MP, LIPID, TSH, T7, BNP #### [facility] [address] [place] [address] Dr. Jc Norris Globulin (S) [Mass/Vol] 3.2 g/dL Normal [facility] Comment on above: Performed By: #### C MP, LIPID, TSH, T7, BNP #### [facility] [address] [place] [address] Dr. Jc Norris Glucose [Mass/Vol] 94 mg/dL Normal 74-106 [facility] Comment on above: Performed By: #### C MP, LIPID, TSH, T7, BNP #### [facility] [address] [place] [address] Dr. Jc Norris Potassium [Moles/Vol] 3.7 mmol/L Normal 3.5-5.1 [facility] Comment on above: Performed By: #### C MP, LIPID, TSH, T7, BNP #### [facility] [address] [place] [address] Dr. Jc Norris Protein [Mass/Vol] 6.8 g/dL Normal 6.4-8.2 [facility] Comment on above: Performed By: #### C MP, LIPID, TSH, T7, BNP #### [facility] [address] [address] [address] Jc Norris Sodium [Moles/Vol] 140 mmol/L Normal 136-145 [facility] Comment on above: Performed By: #### C MP, LIPID, TSH, T7, BNP #### [facility] [address] [address] [address] Jc Norris Urea nitrogen [Mass/Vol] 16.0 mg/dL Normal 7.0-18.0 [facility] Comment on above: Performed By: #### C MP, LIPID, TSH, T7, BNP #### [facility] [address] [address] [address] Jc Norris Urea nitrogen/Creatinine [Mass ratio] 23.9 mg/mg Normal [facility] Comment on above: Performed By: #### C MP, LIPID, TSH, T7, BNP #### [facility] [address] [address] [address] Jc Norris TSHon 10-30-2021 TSH 2.046 uIU/mL Normal 0.358-3.740 [facility] Comment on above: Performed By: #### C MP, LIPID, TSH, T7, BNP #### [facility] [address] [address] [address] Jc Norris Body fluid albumin measureme nt (mass/volume)Ordered By: Anjali Hendrix on 10-06-2021 Albumin (Body fld) [Mass/Vol] 3.9 g/dL 3.2-5.5 [facility] Cholesterol in LDL Calc [Mas s/Vol]Ordered By: Anjali Hendrix on 10-06-2021 Cholesterol in LDL [Mass/Vol] 106 mg/dL 0-100 [facility] Comment on above: LDL ATP III CLASSIFI CATION LDL less than 100 mg/dL Optimal LDL 100-129 mg/dL Near or above optimal LDL 130-159 mg/dL Borderline high LDL 160-189 mg/dL High LDL greater than 189 mg/dL Very high Cholesterol in VLDL Calc [Ma ss/Vol]Ordered By: Anjali Hendrix on 10-06-2021 Cholesterol in VLDL [Mass/Vol] 22 mg/dL [facility] Comprehensive Metabolic Empo n 10-06-2021 Albumin [Mass/Vol] 3.9 g/dL Normal 3.2-5.5 [facility] Comment on above: Performed By: #### E BS LIPID, EBS A1C, EBS CMP #### [facility] [address] [address] ALT [Catalytic activity/Vol] 19 U/L Normal 10-60 [facility] Comment on above: Performed By: #### E BS LIPID, EBS A1C, EBS CMP #### [facility] [address] Estimated GFR ( Amira > 60 [facility] Comment on above: Result Comment: GFR estimated reference range: According to KDOQI guidelines, <60 ml/min/1.73m2 is sufficient to diagnose a patient with chronic kidney disease. Performed By: #### E BS LIPID, EBS A1C, EBS CMP #### [facility] [address] Estimated GFR (Non- Am > 60 [facility] Comment on above: Performed By: #### E BS LIPID, EBS A1C, EBS CMP #### [facility] [address] Comprehensive Metabolic EmpO rdered By: Anjali Hendrix on 10-06-2021 Albumin/Globulin [Mass ratio] 1.4 {ratio} [facility] Comment on above: Performed By: #### E BS LIPID, EBS A1C, EBS CMP #### [facility] [address] [place] [address] [place] ALP [Catalytic activity/Vol] 76 U/L Normal 32-92 [facility] Comment on above: Performed By: #### E BS LIPID, EBS A1C, EBS CMP #### [facility] [address] [place] [address] [place] AST [Catalytic activity/Vol] 22 U/L Normal 10-42 [facility] Comment on above: Performed By: #### E BS LIPID, EBS A1C, EBS CMP #### [facility] [address] Bilirubin [Mass/Vol] 0.4 mg/dL Normal 0.3-1.2 [facility] Comment on above: Performed By: #### E BS LIPID, EBS A1C, EBS CMP #### [facility] [address] Calcium [Mass/Vol] 9.4 mg/dL Normal 8.2-10.2 [facility] Comment on above: Performed By: #### E BS LIPID, EBS A1C, EBS CMP #### [facility] [address] Chloride [Moles/Vol] 101 mmol/L Normal 95-114 [facility] Comment on above: Performed By: #### E BS LIPID, EBS A1C, EBS CMP #### [facility] [address] [place] [address] CO2 [Moles/Vol] 23.4 mmol/L Normal 22.0-30.0 [facility] Comment on above: Performed By: #### E BS LIPID, EBS A1C, EBS CMP #### [address] Creatinine [Mass/Vol] 0.66 mg/dL Normal 0.44-1.03 [facility] Comment on above: Performed By: #### E BS LIPID, EBS A1C, EBS CMP #### [facility] [address] [place] [address] Globulin (S) [Mass/Vol] 2.7 g/dL Normal [facility] Comment on above: Performed By: #### E BS LIPID, EBS A1C, EBS CMP #### [facility] [address] Glucose [Mass/Vol] 109 mg/dL High 70-100 [facility] Comment on above: Result Comment: ADA recommended reference range Performed By: #### E BS LIPID, EBS A1C, EBS CMP #### [facility] [address] [place] [address] ADA recommended refe rence range Potassium [Moles/Vol] 3.9 mmol/L Normal 3.5-5.1 [facility] Comment on above: Performed By: #### E BS LIPID, EBS A1C, EBS CMP #### [facility] [address] Protein [Mass/Vol] 6.6 g/dL Normal 6.1-7.9 [facility] Comment on above: Performed By: #### E BS LIPID, EBS A1C, EBS CMP #### [facility] [address] Sodium [Moles/Vol] 135 mmol/L Low 136-146 [facility] Comment on above: Performed By: #### E BS LIPID, EBS A1C, EBS CMP #### [facility] [address] Urea nitrogen [Mass/Vol] 11 mg/dL Normal 9-23 [facility] Comment on above: Performed By: #### E BS LIPID, EBS A1C, EBS CMP #### [facility] [address] EBS A1C with Estimated Ave G luon 10-06-2021 Glucose [Mass/Vol] 114 mg/dL Normal [facility] Comment on above: Result Comment: PERF ORMED BY: [place] [address] PATHOLOGIST CLINICAL ADMINISTRATIVE COORDINATOR MARLEY CANO M.D. Performed By: #### E BS LIPID, EBS A1C, EBS CMP #### [facility] [address] EBS A1C with Estimated Ave G luOrdered By: Anjali Hendrix on 10-06-2021 HbA1c (Bld) [Mass fraction] 5.6 % Normal 4.3-5.6 [facility] Comment on above: Result Comment: Incr eased risk for diabetes: 5.7 - 6.4 diabetes: >6.4 glycemic control for adults with diabetes: <7.0 Performed By: #### E BS LIPID, EBS A1C, EBS CMP #### [facility] [address] Increased risk for d iabetes: 5.7 - 6.4 diabetes: >6.4 glycemic control for adults with diabetes: <7.0 Estimated glomerular filtrat ion rate (GFR) non- AmericanOrdered By: Anjali Hendrix on 10-06-2021 GFR/1.73 sq M.predicted among non-blacks MDRD (S/P/Bld) [Vol rate/Area] > 60 mL/Min [facility] Glucose mean value [Mass/vol ume] in Blood Estimated from glycated hemoglobinOrdered By: Anjali Hendrix on 10-06-2021 Average glucose Estimated from glycated hemoglobin (Bld) [Mass/Vol] 114 mg/dL [facility] Lipid ProfileOrdered By: Jayshere Hendrix on 10-06-2021 Cholesterol [Mass/Vol] 179 mg/dL Normal 140-200 [facility] Comment on above: Result Comment: Chol less than 200 mg/dl low risk Chol 201-239 mg/dl borderline risk Chol 240 mg/dl and greater high risk Performed By: #### E BS LIPID, EBS A1C, EBS CMP #### [facility] [address] Chol less than 200 m g/dl low risk Chol 201-239 mg/dl borderline risk Chol 240 mg/dl and greater high risk Cholesterol in HDL [Mass/Vol] 50 mg/dL Normal 35-85 [facility] Comment on above: Result Comment: HDL CHOL ATP-III CLASSIFICATION Cardiovascular Risk HDL > or equal to 60 mg/dL LOW HDL < 40 mg/dL HIGH Performed By: #### E BS LIPID, EBS A1C, EBS CMP #### [facility] [address] HDL CHOL ATP-III CLA SSIFICATION Cardiovascular Risk HDL > or equal to 60 mg/dL LOW HDL < 40 mg/dL HIGH Cholesterol.total/Chol esterol in HDL [Mass ratio] 3.6 {ratio} Normal <5.0 [facility] Comment on above: Result Comment: PERF ORMED BY: [place] [address] PATHOLOGIST CLINICAL ADMINISTRATIVE COORDINATOR MARLEY CANO M.D. Performed By: #### E BS LIPID, EBS A1C, EBS CMP #### [facility] [address] [place] [address] [place] Lipid Profileon 10-06-2021 LDL Cholesterol,Calculated 106 mg/dL High 0-100 [facility] Comment on above: Result Comment: LDL ATP III CLASSIFICATION LDL less than 100 mg/dL Optimal LDL 100-129 mg/dL Near or above optimal LDL 130-159 mg/dL Borderline high LDL 160-189 mg/dL High LDL greater than 189 mg/dL Very high Performed By: #### E BS LIPID, EBS A1C, EBS CMP #### [facility] [address] Triglyceride w/Reflex 113 mg/dL Normal 35-149 [facility] Comment on above: Result Comment: TRIG ATP III CLASSIFICATION TRIG less than 150 mg/dL Normal TRIG 150-199 mg/dL Borderline high TRIG 200-500 mg/dL High TRIG greater than 500 mg/dL Very high Standard traceable to the Center for Disease Conrtrol and Prevention (CDC) test method. Performed By: #### E BS LIPID, EBS A1C, EBS CMP #### [facility] [address] VLDL CHOLESTEROL 22 mg/dL Normal [facility] Comment on above: Performed By: #### E BS LIPID, EBS A1C, EBS CMP #### [facility] [address] No Panel InformationOrdered By: Anjali Hendrix on 10-06-2021 Estimated GFR () > 60 mL/Min [facility] Comment on above: GFR estimated refere nce range: According to KDOQI guidelines, <60 ml/min/1.73m2 is sufficient to diagnose a patient with chronic kidney disease. Pharmacy Creatinine Clearance (Chem N/A [facility] Triglycerides Reflex 113 mg/dL 35-149 [facility] Comment on above: TRIG ATP III CLASSIF [...] additional P-5'-P [Catalytic activity/Vol] 19 U/L 10-60 [facility] HCG,Urineon 04-25-2021 Beta HCG ( test) Ql (U) Negative Normal [facility] Comment on above: Result Comment: PERF ORMED BY: [place] [address] PATHOLOGIST CLINICAL ADMINISTRATIVE COORDINATOR MARLEY CANO M.D. Performed By: #### U HCG #### [facility] [address] [place] [address] HCG,Urineon 03-16-2021 Beta HCG ( test) Ql (U) Negative Normal [facility] Comment on above: Result Comment: PERF ORMED BY: [place] [address] PATHOLOGIST CLINICAL ADMINISTRATIVE COORDINATOR MARLEY CANO M.D. Performed By: #### U HCG #### [facility] [address] [place] [address] COVID-19 [facility]MCon 02-21-2021 SARS-CoV-2 (COVID-19) RNA VANDANA+probe Ql (Unsp spec) Positive Critically abnormal Negative [facility] Comment on above: Order Comment: Healt hcare Worker?: N Result Comment: Posi tive results will only be called to Providers for the following groups of patients: Pre-Surgical Testing, Emergency Room, and Inpatients. Testing for SARS-CoV-2 by RT-PCR This test was developed and its performance characteristics determined by [employer], [employer]) and validated at the [facility]. This test has not been FDA cleared [...] is terminated or revoked sooner. PERFORMED BY: [facility] [address] [place] [id number] PATHOLOGIST CLINICAL ADMINISTRATIVE COORDINATOR MARLEY CANO M.D. Performed By: #### C OVID 19 [facility] #### [facility] [address] [place] [id number] [facility] Vital Signs Date Time Vital Sign Value Performing Clinician Facility 10-23-2022 09:00-0400 Body height 170.18 cm Al Ball Other [facility] 10-23-2022 09:00-0400 Body mass index (BMI) [Ratio] 33.36 kg/m2 Al Ball Other [facility] 10-23-2022 09:00-0400 Body weight 96.62 kg Al Ball Other [facility] 10-23-2022 09:00-0400 Diastolic blood pressure 68 mm[Hg] Al Ball Other [facility] Other 10-23-2022 09:00-0400 Systolic blood pressure 105 mm[Hg] Al Ball Other [facility] Other 05-05-2021 11:45-0400 Body height 170.18 cm Eric Diaz Other [facility] Other 05-05-2021 11:45-0400 Body mass index (BMI) [Ratio] 34.14 kg/m2 Eric Diaz Other [facility] Other 05-05-2021 11:45-0400 Body weight 98.88 kg Eric Diaz Other [facility] Other 02-01-2021 15:30-0500 Body height 170.18 cm Eric Diaz Other [facility] Other 02-01-2021 15:30-0500 Body mass index (BMI) [Ratio] 31.48 kg/m2 Eric Diaz Other [facility] Other 02-01-2021 15:30-0500 Body weight 91.17 kg Eric Diaz Other [facility] Other Encounters Encounter Date Encounter Type Care Provider Facility Start: 01-09-2023 End: 01-09-2023 ambulatory RADHA POSADA Not Available Start: 10-23-2022 End: 10-23-2022 ambulatory Al Snow Other [facility] Start: 10-23-2022 Office outpatient vi sit 10 minutes Al Snow [facility] Start: 10-18-2022 End: 10-19-2022 ambulatory MARY TRAN [facility] Start: 07-17-2022 End: 07-17-2022 ambulatory BERNARDO [...] Departed Referred MD Lona Gomez Work Phone: [facility] [address] Start: 08-30-2021 End: 08-31-[address] LONA GOMEZ . Facility:[facility] Start: 05-05-2021 End: 05-05-2021 ambulatory Eric Diaz Other [facility] Start: 05-05-2021 Postop follow up vis it related to original px Eric Diaz [facility] Start: 03-27-2021 End: 03-27-2021 ambulatory Eric Diaz Other [facility] Start: 03-27-2021 Encounter for other preprocedural examination Eric Diaz [facility] Start: 03-27-2021 Postop follow up vis it related to original px Eric Diaz [facility] Start: 02-08-2021 End: 02-08-2021 ambulatory Eric Diaz Other [facility] Start: 02-08-2021 Telephone encounter Eric DOMINGUEZ [facility] Start: 02-06-2021 End: 02-06-2021 ambulatory Eric Emily Other [facility] Other Start: 02-06-2021 Telephone encounter Eric DOMINGUEZ [facility] Start: 02-01-2021 End: 02-01-2021 ambulatory Eric Diaz Other [facility] Start: 02-01-2021 Encounter for other preprocedural examination Eric Diaz [facility] Start: 02-01-2021 Office outpatient ne w 45 minutes Eric Diaz [facility] Immunizations Immunization Date Immunization Notes Care Provider Viviana hernandez 01-17-2021 COVID-19 Wei Fernandez (Pfizer) MD Lona Gomez Work Phone: [facility] 12-18-2020 COVID-19 mRNAWei (Pfizer) MD Lona Gomez Work Phone: [facility] Payers Date Payer Category Payer Unknown [id number] 2.16.84 [id number] 1993 Unknown [id number] 2.16.84 0.1.168282.3.579.2.593 1993 Unknown [id number] 2.16.84 0.1.120095.3.579.2.593 1993 Unknown [id number] 2.16.84 0.1.238928.3.579.2.593 1993 Unknown [id number] 2.16.84 0.1.115324.3.579.2.593 1993 Unknown [id number] 2.16.84 0.1.344681.3.579.2.593 1993 Unknown [id number] 2.16.84 0.1.063846.3.579.2.593 1993 Unknown [id number] 2.16.84 0.1.254416.3.579.2.593 1993 Unknown [id number] 2.16.84 0.1.495901.3.579.2.593 1993 Unknown [id number] 2.16.84 0.1.836299.3.579.2.593 1993 Unknown [id number] 2.16.84 0.1.283862.3.579.2.593 1993 Unknown [id number] 2.16.84 0.1.189361.3.579.2.593 1993 Unknown [id number] 2.16.84 0.1.079464.3.579.2.593 1993 Unknown [id number] 2.16.84 0.1.707825.3.579.2.593 1993 Unknown [id number] 2.16.84 0.1.988698.3.579.2.593 1993 Unknown [id number] 2.16.84 0.1.288112.3.579.2.593 1993 Unknown [id number] 2.16.84 0.1.078672.3.579.2.593 1993 Unknown [id number] 2.16. 840.1.658452.3.579.2.175 1993 Unknown [id number] 2.16.840 .1.969693.3.579.2.1259 1959 Unknown [id number] 2. 16.840.1.783567. 1959 Unknown [id number] 2.16. 840.1.451401. 1959 Unknown [id number] 1959 Unknown [id number] Self-pay Self Pay [id number] Unknown [id number] 2.16.840 .1.276630.19 Social History Date Type Detail Facility Sex Assigned At [facility] Start: 04-25-2021 Tobacco smoking stat us NHIS Ex-smoker (finding) [facility] Start: 1995 Sex Assigned At Female F [facility] Evaluation note 10-23-2022 Note Date & Type [...] avoid eating prior to HS. Continue PPI [facility] Other Clinical Note 07-17-2022 Note Date & [...] by: IKE COMBS Date: 2022-07-17 17:34 [facility] Evaluation note 05-05-2021 Note Date & Type [...] on range of motion and strength exercise. 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 I have advised against the half-way use of narcotic pain medication. I have [...] outcome. 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 [facility] Other Evaluation note Note Date & Type Note Facility Evaluation note No Information [email or web address] Other Evaluation note Note Date & Type Note Facility Evaluation note No assessment information availa [facility] Work Phone: History general Narrative - Reported Note Date & Type Note Facility History general Narrative - Reported Type Medical History migraine headache Medical History hyperthyroidism Medical History back muscle spasms Surgical History gall bladder Surgical History tonsillectomy and adenoidectomy Surgical History ear tubes Hospitalization History childbirth [facility] Other History general Narrative - Reported Note Date & Type Note Facility History general Narrative - Reported Type Medical History GERD Medical History BOB Surgical History T/A Surgical History CTS Surgical History Cholecystectomy [facility] Other Summary Purpose Family History No Family [...] FOR VISIT (unrecogniz ed section and content) 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 [employer] [facility]. provides no warranty or guarantee of the accuracy or completeness of information in this document.
[2023-03-01 06:28] LABS: Basophils Absolute Auto 0.1 10^3/uL (0.0-0.1); Basophils Percent Auto 0.6 % (0.2-2.0); Eosinophils Absolute Auto 0.3 10^3/uL (0.0-0.7); Eosinophils Percent Auto 2.8 % (0.9-7.0); Hematocrit 39.6 % (36.0-48.0); Hemoglobin 12.5 g/dL (12.0-16.0); Immature Granulocytes Abs Auto 0.04 10^3/uL (0.00-0.03); Immature Granulocytes Pct Auto 0.4 % (0.0-0.5); Lymphocytes Absolute Auto 2.8 10^3/uL (1.2-3.8); Lymphocytes Percent Auto 28.6 % (20.5-60.0); Mean Corpuscular HGB Conc 31.6 g/dL (29.9-35.2); Mean Corpuscular Hemoglobin 26.7 pg (26.7-34.0); Mean Corpuscular Volume 84.6 fL (81.0-99.0); Mean Platelet Volume 10.4 fL (9.5-13.5); Monocytes Absolute Auto 0.8 10^3/uL (0.3-0.8); Monocytes Percent Auto 7.8 % (1.7-12.0); Neutrophils Absolute Auto 5.8 10^3/uL (1.4-6.5); Neutrophils Percent Auto 59.8 % (43.0-75.0); Platelet Count 268 10^3/uL (150-450); Red Blood Count 4.68 10^6/uL (4.20-5.40); Red Cell Distribution Width 13.3 % (11.0-15.0); White Blood Count 9.7 10^3/uL (4.0-11.0)
[2023-03-01 06:48] LABS: HCG Quantitative <1 mIU/mL
[2023-03-01] MEDS: LACTATED RINGER'S SOLUTION 1,000 ML 50 ML IV ×2 (07:04→08:47)
--- NOTE | 2023-03-01 08:38 | P.ON_ITS ---
Brief Operative Note Date of procedure: 03/01/23 Pre-op diagnosis: desires sterilization, multiparity Post-op diagnosis: same as pre-op Procedure: Brief Operative Note Date of procedure: Pre-op diagnosis: Post-op diagnosis: Procedure: NAME OF PROCEDURE: robotic assisted bilateral laparoscopic salpingectomy PROCEDURE: The patient was taken back to the Operating Room where she was given general anesthesia without difficulty. She was then prepped and draped in the normal sterile fashion after being placed in a dorsal lithotomy position. A wet sponge stick was placed into the patient's vagina. Attention was then turned to the patient's abdomen, where a scalpel was used to make a small infraumbilical incision. The S retractors were then used to dissect the underlying layers until the fascia could be seen. The fascia was then grasped with Karen clamps and tented up. A knife was then used to make a small incision to the fascia. The muscle was identified, at that time two sutures of #0 Vicryl on a GI needle was then used and placed through the fascia. the peritoneum was then identified and entered bluntly. The 10-4 Angelique was then placed into the patient's abdomen. This was confirmed with direct visualization of the bowel, using the laparoscope. The patient's abdomen was then insufflated using approximately 4 liters of CO2 gas. Survey of the patient's abdomen demonstrated ovaries were no rmal in appearance as well as both tubes and uterus. A second and third rt and lt lateral robotic ports which were 8 mm in size, was then placed after the skin incision was made under direct visualization . the robotic arms were engaged. The patient's tube on the patient's right side was identified and tented up using a grasper, the ligasure apparatus was then used to come across the mesosalpingx from the fimbriated end to the insertion site at the uterus, the tube was then amputated and removed in its entirety. This was done on the contralateral side. The tubes were the removed from the patients abdomen. Excellent hemostasis was noted. The lateral ports were then moved under direct visualization with excellent hemostasis. All instruments were removed from the patient's abdomen. The fascia was closed using the #0 Vicryl on GI needle. The skin was closed using 4-0 Vicryl subcuticularly. All instruments were removed from the patient's vagina as well. The patient was taken out of the dorsal lithotomy position and placed in the supine position and taken to recovery in stable condition. Sponge, lap and needle counts were correct x2. Anesthesia: NICHO Surgeon: Donta Kaba Compliance Vice President: Katie Calabrese Estimated blood loss (mL): 5 Pathology: none sent Condition: stable Disposition: PACU Urinary Catheter Management Urinary Catheter Management Urethral: Cath placed during this visit: no
[2023-03-01] MEDS: HYDROMORPHONE HCL 0.5 MG/0.5 ML SYRINGE IV (09:15)
[2023-03-01] MEDS: ALBUTEROL SULFATE 2.5 MG/3 ML VIAL NEB IH (09:20)
--- NOTE | 2023-03-01 09:30 | PC.NURSE ---
Sitting in fowlers position and c/o difficulty breathing ; HHN treatment ordered by anesthesia; peripad dry
--- NOTE | 2023-03-01 09:36 | PC.NURSE ---
remains anxious; anesthesia aware of c/o sternal chest discomfort; no further orders received; HHN treatment in progress
--- NOTE | 2023-03-01 09:41 | PC.NURSE ---
remains anxious; HHN TREATMENT ALMOST COMPLETED; continues to c/o sternal chest discomfort; anesthesia aware and no new orders
--- NOTE | 2023-03-01 09:44 | PC.NURSE ---
More calm; c/o less of sternal discomfort; respirations regular and unlabored; peripad dry
--- NOTE | 2023-03-01 09:48 | PC.NURSE ---
Medicated as ordered for incisional pain; no c/o sternal discomfort at this time
[2023-03-01] MEDS: HYDROCODONE/ACET 5-325 MG TABLET 1 TAB PO (10:17)
--- NOTE | 2023-03-01 10:21 | PC.NURSE ---
Medicated with oral pain med as ordered; peripad dry; denies urge to void
--- NOTE | 2023-03-01 11:17 | PC.NURSE ---
peripad dry; up to bathroom and voids clear yellow without difficulty
== END 2023-03-01 11:10 | disposition home or self-care (01) ==
PROVIDERS: PCP Family Medicine; Visit Provider Obstetrics & Gynecology
PROC: (CPT 840; principal; 2023-03-01 07:30)
DX: Z30.2 Encounter for sterilization (principal); N83.8 Other noninflammatory disorders of ovary, fallopian tube and broad ligament; J45.909 Unspecified asthma, uncomplicated; Z87.440 Personal history of urinary (tract) infections; K21.9 Gastro-esophageal reflux disease without esophagitis; E03.9 Hypothyroidism, unspecified
CPT/HCPCS: 58661; 36415; 84702; 85025; 88302; 94640; J0330; J1100; J1170; J1885; J2250; J2405; J2704; J3010

== ENCOUNTER 2023-08-26 19:55 | Emergency (ER) | payer OTHER, SELFPAY ==
[2023-08-26 19:56] VITALS: BP 145/91; PULSE 89; TEMP 36.7; O2SAT 97; BMI 34.2
[2023-08-26 19:58] VITALS: PULSE 81
--- NOTE | 2023-08-26 19:58 | ECG_ITS ---
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
--- NOTE | 2023-08-26 20:01 | ED.AMS1 ---
HPI - Altered Mental Status General Chief Complaint: Psychiatric Symptoms Stated Complaint: stroke like symptom Time Seen by Provider: 08/26/23 19:57 History of Present Illness HPI narrative: patient reportedly seen at [facility] yesterday for similar episode of decreased responsiveness. Driven to [facility] by her . Complaint of in and out of consciousness. Patient arrives lethargic. Nursing was able to speak to her and get her to stand and assist transfer to the stretcher. she complains of a migraine headache. States she had one yesterday also. states she does not normally become semiconscious with her migraine. MD complaint: Reports decreased responsiveness Related Data Home Medications ?Medication ?Instructions ?Recorded ?Confirmed albuterol sulfate 2.5 mg/3 mL 1.25 mg inhalation Q2H PRN 12/17/22 03/01/23 (0.083 %) solution for nebulization shortness of breath or wheezing albuterol sulfate 90 mcg/actuation 2 inh inhalation Q6H PRN shortness 12/17/22 03/01/23 aerosol inhaler of breath or wheezing citalopram 10 mg tablet 10 mg PO DAILY 12/17/22 03/01/23 citalopram 20 mg tablet 20 mg PO DAILY 12/17/22 03/01/23 fluticasone fur. 200 mcg-umeclid 1 inh inhalation Q24H 02/25/23 03/01/23 62.5 mcg-vilant 25 mcg inhalat.powder (Trelegy Ellipta) fluticasone propionate 110 2 inh inhalation Q12H PRN wheezing 02/25/23 03/01/23 mcg/actuation HFA aerosol inhaler (Flovent HFA) ondansetron 4 mg disintegrating 4 mg PO Q6H PRN nausea and vomiting 02/25/23 03/01/23 tablet tizanidine 4 mg tablet 8 mg PO QPM PRN muscle spasticity 02/25/23 03/01/23 ubrogepant 100 mg tablet (Ubrelvy) 100 mg PO DAILY PRN migraine 02/25/23 03/01/23 headache Previous Rx's ?Medication ?Instructions ?Recorded hydrocodone 5 mg-acetaminophen 325 1 tab PO Q4H PRN pain 4 days #16 03/01/23 mg tablet tabs ibuprofen 800 mg tablet 800 mg PO Q8H PRN pain 14 days #40 03/01/23 tabs Allergies Allergy/AdvReac Type Severity Reaction Status Date / Time latex Allergy Intermediate Hives Verified 02/25/23 08:14 Review of Systems ROS Status of ROS 10 or more systems reviewed and unremarkable except as noted in history and below [facility] Medical History (Updated 08/26/23 @ 21:27 by Anthony Camara MD) PTSD (post-traumatic stress disorder) ?F43.10 - Post-traumatic stress disorder, unspecified (ICD-10) Depression ?F32.A - Depression, unspecified (ICD-10) Anxiety ?F41.9 - Anxiety disorder, unspecified (ICD-10) COVID-19 ?U07.1 - COVID-19 (ICD-10) Pneumonia ?J18.9 - Pneumonia, unspecified organism (ICD-10) Asthma ?J45.909 - Unspecified asthma, uncomplicated (ICD-10) Migraine ?G43.909 - Migraine, unspecified, not intractable, without status migrainosus (ICD-10) Heartburn ?R12 - Heartburn (ICD-10) Thyroid disorder ?E07.9 - Disorder of thyroid, unspecified (ICD-10) Postoperative nausea and vomiting ?R11.2 - Nausea with vomiting, unspecified (ICD-10) ?Z98.890 - Other specified postprocedural states (ICD-10) Request for sterilization ?Z30.2 - Encounter for sterilization (ICD-10) Normal vaginal delivery ?O80 - Encounter for full-term uncomplicated delivery (ICD-10) Surgical History (Updated 02/25/23 @ 08:23 by Es Hendrix NP) History of carpal tunnel release ?Z98.890 - Other specified postprocedural states (ICD-10) History of cholecystectomy ?Z90.49 - Acquired absence of other specified parts of digestive tract (ICD-10) History of myringotomy ?Z98.890 - Other specified postprocedural states (ICD-10) History of tonsillectomy and adenoidectomy ?Z90.89 - Acquired absence of other organs (ICD-10) Family History (Updated 02/25/23 @ 08:23 by Es Hendrix NP) Other Family history of breast cancer Family history of diabetes mellitus Family history of hypertension Family history of stroke Social History (Updated 01/08/24 @ 08:19 by Es Hendrix NP) Within the past year, how often did you have a drink containing alcohol: 2-4 times a month Smoking status: Former smoker Non-prescribed substance use: denies use 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 Highest level of school completed/degree received: high school graduate Exam Constitutional Vital Signs, click to edit/add: Last Vital Signs Temp 98.1 F 08/26/23 19:56 Pulse 89 08/26/23 19:56 Resp 18 08/26/23 19:56 BP 145/91 H 08/26/23 19:56 Pulse Ox 97 08/26/23 19:56 O2 Del Method Room Air 08/26/23 19:56 General appearance: lethargic (did wake up some to nasal ammonia and was able to answer questions above) HENMT Common normals: normocephalic and head/scalp atraumatic Eye Common normals: EOMs intact bilaterally, conjunctivae normal and no scleral icterus Respiratory Common normals: normal respiratory effort, no retractions, no use of accessory muscles and clear to auscultation bilaterally Cardio Common normals: regular rate, regular rhythm, S1 normal heart sound and S2 normal heart sound GI Common normals: Normal to inspection, nondistended, normoactive bowel sounds present and soft to palpation Extremity Common normals: normal to inspection Neuro Common normals: oriented x3 Sensorium/orientation: lethargic Course Vital Signs Vital signs: Vital Signs Temperature 98.1 F 08/26/23 19:56 Pulse Rate 89 08/26/23 19:56 Respiratory Rate 18 08/26/23 19:56 Blood Pressure 145/91 H 08/26/23 19:56 Pulse Oximetry 97 08/26/23 19:56 Oxygen Delivery Method Room Air 08/26/23 19:56 Temperature 98.1 F 08/26/23 19:56 Pulse Rate 89 08/26/23 19:56 Respiratory Rate 18 08/26/23 19:56 Blood Pressure 145/91 H 08/26/23 19:56 Pulse Oximetry 97 08/26/23 19:56 Oxygen Delivery Method Room Air 08/26/23 19:56 MDM - Altered Mental Status MDM Narrative Medical decision making narrative: patient arrives via private vehicle with history of going in and out of consciousness. Arrives lethargic. Nursing able to stand her up from wheelchair and have her assist with getting into the stretcher. Patient became more responsive and able to answer all question after nursing placed ammonia at her nose. She complains of a migraine. states left side of head as usual. Denies history of migraines complicated by decreased responsiveness. She was seen yesterday at [facility] with similar presentation and old records are pending. she remains sedated in appearance but easily wakes up now and communicates clearly patient treated for her migraine with reglan and solumedrol. she is feeling better and very much awake. States she took Ubrelvy at home and it makes her very drowsy. Advised to discuss these side effects with her Neurologist as she will likely need a different treatment. Discharged home stable and in the care of her . did review records from [facility] yesterday and CT brain and labs WNL Lab Data Labs: Lab Results 08/26/23 08/26/23 Range/Units 19:58 20:00 WBC 9.3 (4.0-11.0) 10^3/uL RBC 4.81 (4.20-5.40) 10^6/uL Hgb 13.4 (12.0-16.0) g/dL Hct 41.0 (36.0-48.0) % MCV 85.2 (81.0-99.0) fL MCH 27.9 (26.7-34.0) pg MCHC 32.7 (29.9-35.2) g/dL RDW 13.0 (11.0-15.0) % Plt Count 234 (150-450) 10^3/uL MPV 10.9 (9.5-13.5) fL Neut % (Auto) 63.2 (43.0-75.0) % Lymph % (Auto) 26.3 (20.5-60.0) % Pike % (Auto) 7.9 (1.7-12.0) % Eos % (Auto) 1.8 (0.9-7.0) % Baso % (Auto) 0.4 (0.2-2.0) % Neut # (Auto) 5.9 (1.4-6.5) 10^3/uL Lymph # (Auto) 2.4 (1.2-3.8) 10^3/uL Pike # (Auto) 0.7 (0.3-0.8) 10^3/uL Eos # (Auto) 0.2 (0.0-0.7) 10^3/uL Baso # (Auto) 0.0 (0.0-0.1) 10^3/uL Abs Immat Gran (auto) 0.04 H (0.00-0.03) 10^3/uL Imm/Tot Granulo (auto) 0.4 (0.0-0.5) % D-Dimer 0.26 (<=0.59) mg/L FEU Sodium 136 (136-145) mmol/L Potassium 3.5 (3.5-5.1) mmol/L Chloride 103 (98-107) mmol/L Carbon Dioxide 24.8 (21.0-32.0) mmol/L Anion Gap 11.7 BUN 12.0 (7.0-18.0) mg/dL Creatinine 0.66 (0.55-1.02) mg/dL Est GFR ( Amer) >60 (>=60) Est GFR (Non-Af Amer) >60 (>=60) BUN/Creatinine Ratio 18.2 Glucose 85 (74-106) mg/dL Lactate 1.1 (0.4-2.0) mmol/L Calcium 9.2 (8.5-10.1) mg/dL Total Bilirubin 0.4 (0.2-1.0) mg/dL AST 17 (15-37) U/L ALT 25 (14-59) U/L Alkaline Phosphatase 109 (46-116) U/L Troponin I High Sens <4.0 L (4.0-51.3) pg/mL Total Protein 7.6 (6.4-8.2) g/dL Albumin 3.9 (3.4-5.0) g/dL Globulin 3.7 g/dL Albumin/Globulin Ratio 1.1 Salicylates <2.8 (<=19.9) mg/dL Acetaminophen <2.0 L (10.0-30.0) ug/mL Ethanol Quant 12 mg/dL POC Glucose 86 (74-106) mg/dL Discharge Plan Discharge Stand Alone Forms: Portal Instructions Chief Complaint: Psychiatric Symptoms Clinical Impression: Migraine Patient Disposition: Home, Self-Care Prescriptions / Home Meds: No Action albuterol sulfate 2.5 mg /3 mL (0.083 %) solution for nebulization 1.25 mg inhalation Q2H PRN (Reason: shortness of breath or wheezing) citalopram 10 mg tablet 10 mg PO DAILY citalopram 20 mg tablet 20 mg PO DAILY albuterol sulfate 90 mcg/actuation HFA aerosol inhaler 2 inh INHALATION Q6H PRN (Reason: shortness of breath or wheezing) Trelegy Ellipta 200-62.5-25 mcg blister with device 1 inh INHALATION Q24H fluticasone propionate [Flovent HFA] 110 mcg/actuation HFA aerosol inhaler 2 inh INHALATION Q12H PRN (Reason: wheezing) Ubrelvy 100 mg tablet 100 mg PO DAILY PRN (Reason: migraine headache) tizanidine 4 mg tablet 8 mg PO QPM PRN (Reason: muscle spasticity) ondansetron 4 mg tablet,disintegrating 4 mg PO Q6H PRN (Reason: nausea and vomiting) ibuprofen 800 mg tablet 800 mg PO Q8H PRN (Reason: pain) 14 Days Qty: 40 0RF hydrocodone-acetaminophen 5-325 mg tablet 1 tab PO Q4H PRN (Reason: pain) 4 Days Qty: 16 0RF Print Language: Slovenian Instructions: Migraine Headache (ED) Referrals: Aldair Gomez MD [Primary Care Provider] - 1 week
[2023-08-26 20:03] LABS: Glucometer 86 mg/dL (74-106)
--- OUTSIDE RECORDS SUMMARY | 2023-08-26 20:06 | XMS_ITS ---
Patient Summarization (C-CDA 2.1 CCD) Created on: August 26, 2023 MARIANGEL MONTGOMERY : 1995 Sex: Female Author Organization Sample organization Care Team Providers Care Jig And Fixture Repairer Name Role Phone Eric Diaz Unavailable MD Lona Gomez Primary Care Provider [phone] JANET Hendrix Attending Provider NATALIE Reyes, DR ZAMORANO Consulting Unavailable HOY ., DR ZAMORANO Attending Unavailable HOY ., DR ZAMORANO Admitting Unavailable HOY ., DR ZAMORANO Primary Care Unavailable ENDER, DR NILDA Rodriguez Consulting Unavailable MISC, DR ALEXIS Attending Unavailable MISC, DR ALEXIS Admitting Unavailable HOY ., DR ZAMORANO Primary Care Unavailable ENDER, DR NILDA Rodriguez Consulting Unavailable MISC, DR ALEXIS Consulting Unavailable HOY ., DR ZAMORANO Primary [...] Admitting Unavailable DIAB ., OSCAR Consulting Unavailable HOY ., DR ZAMORANO Primary Care Unavailable TERESO ., DR JOHNSON Consulting Unavailable TERESO ., DR JOHNSON Attending Unavailable HOY ., DR ZAMORANO Primary Care Unavailable TERESO ., DR JOHNSON Admitting Unavailable TERESO ., DR JOHNSON Admitting Unavailable HOY ., DR ZAMORANO Primary Care Unavailable TERESO ., DR JOHNSON Attending Unavailable TERESO ., DR JOHNSON Consulting Unavailable JULIANA, DR HEATHER Wilhelm Consulting Unavailable HOY ., [...] Primary Care Unavailable HOY ., DR ZAMORANO Admitting Unavailable HOY ., DR ZAMORANO Primary Care Unavailable FERNDALE, DR NILDA Rodriguez Consulting Unavailable PAY ., DR WYNNE Attending Unavailable PAY ., DR WYNNE Admitting Unavailable PAY ., DR WYNNE Consulting Unavailable ROBERT .ESSENCE Consulting UnavailBERNARDO Eldridge Admitting Unavailable HOY ., DR ZAMORANO Primary Care Unavailable GRECHNY .ESSENCE Consulting UnavailBERNARDO Eldridge Attending Unavailable KIE COMBS Consulting Unavailable Al Snow Unavailable MARY TRAN Primary Care Unavailable GHAZAL MIJARES Referring Unavailable HUSSEIN CHARLES Attending Unavailable RADHA POSADA Attending Unavailable ALEX RIDER Attending Unavailable HUSSEIN CHARLES Attending Unavailable HUSSEIN CHARLES Attending Unavailable DO Ced Saul SEric Attending Unavailable Ning PATEL Attending Unavailable Ced Saul Attending Unavailable Allergies Allergy Classification Reported Allergen(s) Allergy Type Date of Onset Reaction(s) Facility (2 sources) Latex Drug allergy (disorder) 02-24-2016 [facility] Repository Encounters Encounter Date Encounter Type Care Provider Facility Start: 08-25-2023 End: 08-26-2023 Emergency department patient visit DO Ced Saul Facility:[facility] Start: 06-26-2023 End: 06-26-2023 ambulatory Ning PATEL Facility:[facility] Start: 06-20-2023 End: 06-20-2023 ambulatory HUSSEIN CHARLES Not Available Start: 06-06-2023 End: 06-06-2023 ambulatory HUSSEIN CHARLES Not Available Start: 04-29-2023 End: 04-29-2023 ambulatory HUSSEIN CHARLES Not Available Start: 02-05-2023 End: 02-05-2023 ambulatory ALEX RIDER Not Available Start: 01-09-2023 End: 01-09-2023 ambulatory RADHA POSADA Not Available Start: 10-23-2022 End: 10-23-2022 ambulatory Al Snow Other [facility] Other Start: 10-23-2022 Office outpatient vi sit 10 minutes Al Snow [facility] Start: 10-18-2022 End: 10-19-2022 ambulatory MARY TRAN [facility] Start: 07-17-2022 End: 07-17-2022 ambulatory BERNARDO ROSAS Facility: Start: 06-30-2022 End: 07-01-[address] ALEX [...] Start: 10-30-2021 End: 10-31-[address] LONA OGMEZ . Facility:[facility] Start: 10-06-2021 End: 10-06-2021 Departed Referred MD Lona Gomez Work Phone: [facility] [address] Start: 08-30-2021 End: 08-31-[address] LONA GOMEZ . Facility:[facility] Start: 05-05-2021 End: 05-05-2021 ambulatory Eric Diaz Other [facility] Other Start: 05-05-2021 Postop follow up vis it related to original px Eric Diaz [facility] Start: 03-27-2021 End: 03-27-2021 ambulatory Eric Diaz Other [facility] Other Start: 03-27-2021 Encounter for other preprocedural examination Eric Diaz [facility] Start: 03-27-2021 Postop follow up vis it related to original px Eric Diaz [facility] Start: 02-08-2021 End: 02-08-2021 ambulatory Eric Diaz Other [facility] Other Start: 02-08-2021 Telephone encounter Eric Diaz ANGELICA [facility] Start: 02-06-2021 End: 02-06-2021 ambulatory Eric Puckettley Other [facility] Other Start: 02-06-2021 Telephone encounter Eric DOMINGUEZ [facility] Start: 02-01-2021 End: 02-01-2021 ambulatory Eric Puckettley Other [facility] Other Start: 02-01-2021 Encounter for other preprocedural examination Eric Diaz [facility] Start: 02-01-2021 Office outpatient ne w 45 minutes Eric Diaz [facility] Immunizations Immunization Date Immunization Notes Care Provider Viviana hernandez 01-17-2021 COVID-19 Wei Fernandez (Pfizer) MD Lona Gomez Work Phone: [facility] 12-18-2020 COVID-19 Wei Fernandez (Pfizer) MD Lona Gomez Work Phone: [facility] Medications Current Medications Medication Drug Class(es) Dates [...] 25, 2021 1:00am take [address] [facility] every twenty-four hours Cymbalta 60 MG 1 capsule Orally Once a day Active levothyroxine sodium 0.05 mg oral tablet (6 sources) l-Thyroxine Start: 04-25-2021 take 1 tablet by mouth once daily Levothyroxine (Euthyrox) 50 mcg tablet Active 50 MCG PO Daily April 25, 2021 1:00am take 1 tablet by hussein th once daily in the morning Levothyroxine Sodium [...] Tramadol Active 50 MG PO Q4H 20 April 25, 2021 1:00am Payers Date Payer Category Payer Unknown [id number] 2.16.84 [id number] 1995 Unknown [id number] 2.16.84 0.1.663275.3.579.2.593 1995 Unknown [id number] 2.16.84 0.1.438583.3.579.2.593 1995 Unknown [id number] 2.16.84 0.1.889420.3.579.2.593 1995 Unknown [id number] 2.16.84 0.1.941978.3.579.2.593 1995 Unknown [id number] 2.16.84 0.1.835971.3.579.2.593 1995 Unknown [id number] 2.16.84 0.1.748118.3.579.2.593 1995 Unknown [id number] 2.16.84 0.1.456207.3.579.2.593 1995 Unknown [id number] 2.16.84 0.1.639061.3.579.2.593 1995 Unknown [id number] 2.16.84 0.1.030410.3.579.2.593 1995 Unknown [id number] 2.16.84 0.1.116000.3.579.2.593 1995 Unknown [id number] 2.16.84 0.1.974157.3.579.2.593 1993 Unknown [id number] 2.16.84 0.1.557603.3.579.2.593 1993 Unknown [id number] 2.16.84 0.1.867057.3.579.2.593 1993 Unknown [id number] 2.16.84 0.1.808382.3.579.2.593 1993 Unknown [id number] 2.16.84 0.1.184454.3.579.2.593 1993 Unknown [id number] 2.16.84 0.1.613984.3.579.2.593 1995 Unknown [id number] 2.16. 840.1.783005.3.579.2.175 1995 Unknown [id number] 2.16.84 0.1.271603.3.579.2.1259 1995 Unknown [id number] 2.16.84 0.1.476837.3.579.2.1259 1995 Unknown [id number] 2.16.84 0.1.991040.3.579.2.1259 1995 Unknown [id number] 2.16.840 .1.846116.3.579.2.1259 1995 Unknown [id number] 2.16.840 .1.498618.3.579.2.1259 1995 Unknown [id number] 2.16.8 40.1.519232.3.579.2.727 1995 Unknown [id number] 2.16.8 40.1.383703.3.579.2.727 1959 Unknown [id number] 2. 16.840.1.612849.19 1959 Unknown [id number] 2.16. 840.1.929483.19 1959 Unknown [id number] 1961 Unknown [id number] Self-pay Self Pay [id number] Unknown [id number] 2.16.840 .1.224260.19 Problems Active Problems Problem Classification Problem Date [...] 11-04-2021 Chronic Other aftercare (1 source) Other bed bug exterminator (current) drug therapy; Translations: [OTH HIDE TANNER CURRENT DRUG THERAPY] Onset: 06-14-2022 Episodic Other [...] Test Name Value Interpretation Reference Range Facility CT Head or Brain w/o Contras ton 08-26-2023 CT Head or Brain w/o Contrast Exam Date/Time: 08/25/2023 21:25 EDT Reason for Exam: Headache Report IMPRESSION: NEGATIVE CT SCAN OF THE BRAIN. CLINICAL HISTORY: Headache. Dizziness. COMMENT: Unenhanced images were obtained. The ventricles and basal cisterns and cortical sulci appear normal. There is no mass effect nor midline shift. No abnormal attenuation within the brain is noted. There is no evidence of recent intracranial hemorrhage nor extra-axial hematoma. No mass lesion is evident. No skull fracture is noted. All CT scans at this facility use dose modulation, iterative reconstruction, and/or weight based dosing when appropriate to reduce radiation dose to as low as reasonably achievable. Ordering Provider: Ced Saul FINAL REPORT Dictated: 08/26/2023 8:05 am Kit Doty M.D. Signed (Electronic Signature): 08/26/2023 8:05 am Signed by: Kit Doty M.D. Transcribed by: MENDY Technologist: BRIAN Stone [facility] ED Clinical Summaryon 2023 ED Clinical Summary ED Clinical Summary [place] [address] ED Clinical Summary Person Information Name: MARIANGEL MONTGOMERY/[facility] Age: 27 Years : 1995 Sex: Female Language: Kenyan PCP: Lona Gomez MD Marital Status: Visit Id: Visit Reason: Chills; Dizziness; Headache; DIZZY,SHAKING,SWEATIN G Speciality: Acuity: 3 Enc Type: Emergency Med Service: Emergency Arrival: 08/25/2023 20:33:54 Discharge: 08/26/2023 00:23:33 LOS: 000 03:50 Checkin: 08/25/2023 20:33:54 Checkout: 08/26/2023 00:23:33 Dispo Type: Home (Routine DC) EVENTS: Event Name Event Status Request Date/Time Start Date/Time Complete Date/Time Arrive Complete 08/25/2023 20:33:54 08/25/2023 20:33:54 08/25/2023 20:33:54 Document Home Meds Request 08/25/2023 20:33:54 Triage Complete 08/25/2023 20:33:54 08/25/2023 20:45:17 08/25/2023 20:45:17 Bed Assign Complete 08/25/2023 20:38:06 08/25/2023 20:38:06 08/25/2023 20:38:06 Dr Exam Complete 08/25/2023 20:38:06 08/25/2023 20:38:39 08/25/2023 20:38:39 RN Exam Complete 08/25/2023 20:38:06 08/25/2023 20:51:41 08/25/2023 20:51:41 Registration Complete 08/25/2023 20:38:39 08/25/2023 21:10:39 08/25/2023 21:10:39 EKG Complete 08/25/2023 20:42:08 08/25/2023 20:59:13 Meds Admin Complete 08/25/2023 20:42:08 08/25/2023 21:16:42 Pending Labs Request 08/25/2023 20:42:08 Lab Request 08/25/2023 20:42:08 Patient Care Request 08/25/2023 20:42:08 RT Request 08/25/2023 20:42:08 X-Ray Complete 08/25/2023 20:42:08 08/25/2023 21:13:00 08/25/2023 21:29:44 Urine Collect Request 08/25/2023 20:42:08 CT Complete 08/25/2023 20:45:32 08/25/2023 21:08:34 08/25/2023 21:25:16 Pending Labs Complete 08/25/2023 21:03:03 08/25/2023 21:03:03 08/25/2023 21:45:29 Lab Complete 08/25/2023 21:03:03 08/25/2023 21:03:03 08/25/2023 21:45:29 Reg Complete Request 08/25/2023 21:10:39 Reg Bed Request Complete 08/25/2023 21:10:39 08/25/2023 21:10:39 08/25/2023 21:10:39 Wet Read Request 08/25/2023 21:29:44 Meds Admin Complete 08/25/2023 22:05:18 08/25/2023 23:29:43 Discharge Complete 08/25/2023 23:49:40 08/26/2023 00:23:44 08/26/2023 00:23:44 Transfer Complete 08/26/2023 00:23:44 08/26/2023 00:23:44 08/26/2023 00:23:44 ADDRESS: [address] [place] [phone] PHYS DOC NOTES: MEDICAL INFORMATION: Prescriptions Given: PATIENT EDUCATION INFORMATION: Instructions: General Headache Without Cause Follow up: With: Address: When: Lona Gomez [address] [place] [address], [facility] [place] [address] Business (1) In 3 days DIAGNOSIS: Headache Normal [facility] ED Patient Summaryon 024 ED Patient Summary ED Patient Summary [address] [address] Patient Discharge Instructions Person Information Name: MARIANGEL MONTGOMERY Age: 27 Years Arrival Date: 08/25/2023 20:33:54 Discharge Diagnosis: Headache Primary Care Physician: Lona Gomez MD Provider Information Primary Provider: Ced Saul DO Advanced Sales Branch Manager:None The exam and treatment you received in the Emergency Department were for an urgent problem and are not intended as complete care. It is important that you follow up with a doctor, nurse practitioner, or physician?s delinquent tax collector assistant for ongoing care. If your symptoms become worse or you do not improve as expected and you are unable to reach your usual health care provider, you should return to the Emergency Department. We are available 24 hours a day. MARIANGEL MONTGOMERY has been given the following list of patient education materials, prescriptions and follow-up instructions: Follow-up Instructions: With: Address: When: Lona Gomez [facility] [facility] [address], [address] [place] [phone] Business (1) In 3 days In the event that this physician does not participate in your insurance network, please consult with your insurance company to find a nearby participating provider. Patient Education Materials: General Headache Without Cause A MESSAGE TO ALL PATIENTS REGARDING OPIOIDS PRESCRIPTION OPIOIDS: WHAT YOU NEED TO KNOW Prescription opioids can be used to help relieve xiymgpmx-hz-lowitl pain and are often prescribed following a surgery or injury, or for certain health conditions. These medications can be an important part of the treatment but also come with serious risks. It is important to work with your healthcare provider to make sure you are getting the safest, most effective care. WHAT ARE THE RISKS AND SIDE EFFECTS OF OPIOID USE? Prescription opioids carry serious risks of addiction and overdose, especially with prolonged use. An opioid overdose, often marked by slowed breathing, can cause sudden . The use of prescription opioids can have a number of side effects as well, even when taken as directed: ? Tolerance?meaning you might need to take more of the medication for the same pain relief ? Physical dependence?meaning you have symptoms of withdrawal when a medication is stopped ? Increased sensitivity to pain ? Constipation ? Nausea, vomiting, and dry mouth ? Sleepiness and dizziness ? Confusion ? Depression ? Low levels of testosterone that can result in lower sex drive, energy, and strength ? Itching and sweating RISKS ARE GREATER WITH: ? History of drug misuse, substance use disorder, or overdose ? Mental health conditions (such as depression or anxiety) ? Sleep apnea ? Older age (65 years and older) ? Avoid alcohol while taking prescription opioids. Also, unless specifically advised by your health care provider, medications to avoid include: ? Benzodiazepines (such as Xanax or Valium) ? Muscle relaxants (such as Soma or Flexeril) ? Hypnotics (such as Ambien or Lunesta) ? Other prescription opioids KNOW YOUR OPTIONS Talk to your health care provider about ways to manage your pain that don?t involve prescription opioids. Some of these options may actually work better and have fewer risks and side effects. Options may include: ? Pain relievers such as acetaminophen, ibuprofen, and naproxen ? Some medication that are also used for depression or seizures ? Physical therapy and exercise ? Cognitive behavioral therapy, a psychological, goal-directed approach, in which patients learn how to modify physical, behavioral, and emotional triggers of pain and stress. IF YOU ARE PRESCRIBED OPIOIDS FOR PAIN: ? Never take opioids in greater amounts or more often than prescribed. ? Follow up with your primary health care provider. o Work together to create a plan on how to manage your pain. o Talk about ways to help manage your pain that don?t involve prescription opioids. o Talk about any and all concerns and side effects. ? Help prevent misuse and abuse o Never sell or share prescription opioids. o Never use another person?s prescription opioids. ? Store prescription opioids in a secure place and out of reach of others (this may include visitors, children, friends, and family). ? Safely dispose of unused prescription opioids: Find your community drug take-back program or your pharmacy mail-back program, or flush them down the toilet, following guidance from the Food and Drug Administration (www.fda.gov/Drugs/Re sourcesForYou). ? Visit www.cdc.gov/drugoverd ose to learn about the risks of opioids abuse and overdose. ? If you believe you may be struggling with addiction, tell your health personal care aide and ask for guidance or call [facility]?S National Helpline at 6-558-495-GTLX. Source: [place] Department (more content not included)... Normal [facility] XR Chest Single Viewon 08-25 XR Chest Single View Exam Date/Time: 08/25/2023 21:29 EDT Reason for Exam: Chest pain Report IMPRESSION: NO EVIDENCE OF ACTIVE CHEST DISEASE. CLINICAL HISTORY: Chest pain. Diaphoresis. COMMENT: AP portable. The heart is normal in size. The mediastinum is unremarkable. The lungs appear clear. No infiltration nor pleural effusion is evident. Ordering Provider: Ced Saul FINAL REPORT Dictated: 08/26/2023 7:48 am Kit Doty M.D. Signed (Electronic Signature): 08/26/2023 7:48 am Signed by: Kit Doty M.D. Transcribed by: MENDY Technologist: BEVERLEY Technical Comments Radiation Dose: Ka,r in mGy = n/a DAP = n/a Normal [facility] BMPon 08-25-2023 Anion gap [Moles/Vol] 12 mmol/L Normal 6-16 [facility] Comment on above: Performed By: #### 2 [id number] #### [facility] [address] [place] [address] Calcium [Mass/Vol] 9.1 mg/dL Normal 8.9-11.1 [facility] Comment on above: Performed By: #### 2 [id number] #### [facility] [address] [place] [address] Chloride [Moles/Vol] 104 mmol/L Normal 101-111 [facility] Comment on above: Performed By: #### 2 [id number] #### [facility] [address] [place] [address] CO2 [Moles/Vol] 25 mmol/L Normal 21-31 [facility] Comment on above: Performed By: #### 2 [id number] #### [facility] [address] [place] [place] [address] Creatinine [Mass/Vol] 0.6 mg/dL Normal 0.5-1.3 [facility] Comment on above: Performed By: #### 2 [id number] #### [facility] [address] [place] [place] [address] Glucose [Mass/Vol] 104 mg/dL Normal 55-199 [facility] Comment on above: Performed By: #### 2 [id number] #### [facility] [address] [place] [address] Potassium [Moles/Vol] 3.7 mmol/L Normal 3.5-5.3 [facility] Comment on above: Performed By: #### 2 [id number] #### [facility] [address] [place] [address] Sodium [Moles/Vol] 137 mmol/L Normal 135-145 [facility] Comment on above: Performed By: #### 2 [id number] #### [facility] [address] [place] [address] Urea nitrogen [Mass/Vol] 11 mg/dL Normal 5-21 [facility] Comment on above: Performed By: #### 2 [id number] #### [facility] [address] [place] [address] Urea nitrogen/Creatinine [Mass ratio] 18 No Units Normal 10-20 [facility] Comment on above: Performed By: #### 2 [id number] #### [facility] [address] [place] [address] CBC w/ Auto Diffon 4 Basophils/100 WBC (Bld) 0.5 % Normal 0.0-2.0 [facility] Comment on above: Performed By: #### 2 [id number] #### [facility] [address] [place] [address] Basophils/Leukocytes Auto (Bld) [Pure # fraction] 0.0 E9/L Normal 0.0-0.2 [facility] Comment on above: Performed By: #### 2 [id number] #### [facility] [address] [place] [address] Eosinophils (Bld) [#/Vol] 0.1 E9/L Normal 0.0-0.5 [facility] Comment on above: Performed By: #### 2 [id number] #### [facility] [address] [place] [address] Eosinophils/100 WBC (Bld) 1.6 % Normal 0.0-8.0 [facility] Comment on above: Performed By: #### 2 [id number] #### [facility] [address] [place] [address] Erythrocyte distribution width (RBC) [Ratio] 14.4 % High 10.9-14.2 [facility] Comment on above: Performed By: #### 2 [id number] #### [facility] [address] [place] [address] Hematocrit (Bld) [Volume fraction] 41.0 % Normal 34.0-46.0 [facility] Comment on above: Performed By: #### 2 [id number] #### [facility] [address] [place] [address] Hemoglobin (Bld) [Mass/Vol] 14.2 g/dL Normal 12.0-16.0 [facility] Comment on above: Performed By: #### 2 [id number] #### [facility] [address] [place] [address] Lymphocytes (Bld) [#/Vol] 2.1 E9/L Normal 1.0-4.0 [facility] Comment on above: Performed By: #### 2 [id number] #### [facility] [address] [place] [address] Lymphocytes/100 WBC (Bld) 23.8 % Normal 14.0-50.0 [facility] Comment on above: Performed By: #### 2 [id number] #### [facility] [address] [place] [address] MCH (RBC) [Entitic mass] 28.6 pg Normal 27.0-34.0 [facility] Comment on above: Performed By: #### 2 [id number] #### [facility] [address] [place] [address] MCHC (RBC) [Mass/Vol] 34.7 g/dL Normal 31.4-36.0 [facility] Comment on above: Performed By: #### 2 [id number] #### [facility] [address] [place] [address] MCV (RBC) [Entitic vol] 82.5 fL Normal 80.0-100.0 [facility] Comment on above: Performed By: #### 2 [id number] #### [facility] [address] [place] [address] Monocytes (Bld) [#/Vol] 0.6 E9/L Normal 0.2-1.0 [facility] Comment on above: Performed By: #### 2 [id number] #### [facility] [address] [place] [address] Neutrophils (Bld) [#/Vol] 5.8 E9/L Normal 2.0-7.5 [facility] Comment on above: Performed By: #### 2 [id number] #### [facility] [address] [place] [address] Neutrophils/100 WBC (Bld) 66.7 % Normal 36.0-75.0 [facility] Comment on above: Performed By: #### 2 [id number] #### [facility] [address] [place] [address] Platelet 223.0 E9/L Normal 150.0-500.0 [facility] Comment on above: Performed By: #### 2 [id number] #### [facility] [address] [place] [address] Platelet mean volume (Bld) [Entitic vol] 9.0 fL Normal 6.4-10.8 [facility] Comment on above: Performed By: #### 2 [id number] #### [facility] [address] [place] [address] RBC (Bld) [#/Vol] 5.0 E12/L Normal 4.3-5.9 [facility] Comment on above: Performed By: #### 2 [id number] #### [facility] [address] [place] [address] WBC corrected for nucl RBC Auto (Bld) [#/Vol] 8.8 E9/L Normal 4.0-11.0 [facility] Comment on above: Performed By: #### 2 [id number] #### [facility] [address] [place] [address] ED Note-Physicianon 08-25-19 ED Note-Physician ED Note-Physician Basic Information Time Seen: Ced Saul DO 08/25/2023 20:38 History of Present Illness HPI: Patient is a 27-year-old female who is previous healthy presents the ED for blurred vision, shakiness, and lightheadedness. Patient states that so she woke up this morning she has felt generally weak and shaky as well as lightheaded with some slight blurring of her vision. She states that she has a mild generalized headache which is not unusual for her as she does get migraines. This is not the worst headache of her life and came on gradually. She denies any fever or chills. She denies any nausea or vomiting. She denies any recent illness or injury. ROS: Pertinent review of systems conducted and is negative except as noted above. Physical exam: General: nontoxic appearing and in no distress HEENT: Mucous membranes moist Neuro: awake and alert. Cranial nerves II through XII are intact gross motor sensation to all 4 extremities intact. Neck: supple, trachea midline Card: Heart regular rate and rhythm no murmur Resp: Lungs clear to auscultation no wheeze or rhonchi Abd: Soft and nondistended. No tenderness to palpation with no rebound or guarding. Ext: No gross deformity or edema Physical Exam Vitals & Measurements T: 36.9 ?C(Oral) HR: 77(Monitored) RR: 18 BP: 132/82 SpO2: 99% HT: 170 cm WT: 98.9 kg BMI: 34.22 Medical Decision Making MEDICAL DECISION MAKING Number and Complexity of Problems Differential Diagnosis: [] [facility] Data External documents reviewed: N/A My EKG interpretation: Noted in chart if applicable My CT interpretation: N/A My X-ray interpretation: Noted in chart if applicable My Ultrasound interpretation: N/A Decision rules/scores evaluated: N/A Discussed with: N/A Treatment and Disposition ED Course: Patient is nontoxic-appearing no distress. She is neurologically intact on my exam. She is afebrile here in the ED. We obtained a CT of the brain in addition to chest x-ray and blood work. CT the brain is negative. Workup is overall very reassuring. Patient was given a dose of Toradol. On reassessment she is feeling better. We discussed the plan of discharge with continued oral hydration and rest and she will follow-up with her primary care physician. We discussed return precautions. Patient states understanding agreement with this plan was discharged stable condition. Shared decision making: As above Code status: N/A Assessment/Plan Headache (R51.9: Headache, unspecified) Orders: ketorolac, 15 mg = 1 mL, Injection, IV Push, Once, Stop date 08/25/23 22:05:00 EDT, STAT, Start date 08/25/23 22:05:00 EDT, 08/25/23 22:05:00 EDT Sodium Chloride 0.9% intravenous solution, 1,000 mL, Soln-IV, IV, Once, Stop date 08/25/23 20:41:00 EDT, STAT, Start date 08/25/23 20:41:00 EDT, Infuse over 61, minute(s) Basic Metabolic Panel CBC w/ Auto Diff CT Head or Brain w/o Contrast ECG 12 Lead Adult ED Cardiac Monitoring eGFR Oxygen Saturation Oxygen Therapy PT & PTT Saline Lock Insert Troponin 0 Hr. U Beta Hcg Qual UA with Cult Rflx XR Chest Single View Medications Administered Given ketorolac 15 mg/mL Inj, 15 mg, IV Push NS 1000 ml Bolus, 1000 mL, IV Disposition Plan Discharge Prescription List Prescriptions No active prescription medications Follow-up With When Contact Information Lona Gomez In 3 days [facility] [address] [place] [phone] Business (1) Additional Instructions: Patient Education General Headache Without Cause Problem List/Past Medical History Ongoing No qualifying data Historical No qualifying data Medications Inpatient NS 1000 ml Bolus, 1000 mL, IV, Once Home No active home medications Allergies No active allergies Lab Results WBC: 8.8 E9/L (08/25/23 21:00:00) RBC: 5 E12/L (08/25/23 21:00:00) HGB: 14.2 gm/dL (08/25/23 21:00:00) Hct: 41 % (08/25/23 21:00:00) MCV: 82.5 fL (08/25/23 21:00:00) MCH: 28.6 pg (08/25/23 21:00:00) MCHC: 34.7 gm/dL (08/25/23 21:00:00) RDW: 14.4 % High (08/25/23 21:00:00) Platelet: 223 E9/L (08/25/23 21:00:00) MPV: 9 fL (08/25/23 21:00:00) Neutro Auto: 66.7 % (08/25/23 21:00:00) Lymph Auto: 23.8 % (08/25/23 21:00:00) [place] Auto: 7.4 % (08/25/23 21:00:00) Eos Auto: 1.6 % (08/25/23 21:00:00) Basophil Auto: 0.5 % (08/25/23 21:00:00) Neutro Absolute: 5.8 E9/L (08/25/23 21:00:00) Lymph Absolute: 2.1 E9/L (08/25/23 21:00:00) [place] Absolute: 0.6 E9/L (08/25/23 21:00:00) Eos Absolute: 0.1 E9/L (08/25/23 21:00:00) Basophil Absolute: 0 E9/L (08/25/23 21:00:00) PT: 10.7 second(s) (08/25/23 21:00:00) INR: 0.96 (08/25/23 21:00:00) PTT: 32.5 second(s) (08/25/23 21:00:00) Glucose Lvl: 104 mg/dL (08/25/23 21:00:00) BUN: 11 mg/dL (08/25/23 21:00:00) Creatinine: 0.6 mg/dL (08/25/23 21:00:00) eGFR: 124 mL/min/1.73 m2 (08/25/23 21:00:00) BUN/Creat Ratio: 18 (08/25/23 21:00:00) Sodium Lvl: 137 mmol/L (08/25/23 21:00:00) Potassium Lvl: (more content not included)... Normal [facility] Comment on above: Result Comment: Elec tronically Signed By: Ced Saul DO\.br\Date and Time Signed: 08/25/23 23:50 EDT PT & PTTon 08-25-2023 aPTT Coag (PPP) [Time] 32.5 second(s) Normal 25.1-36.5 [facility] Comment on above: Result Comment: Para meter 15 days - 4 weeks 1 - 5 months 6 - 11 months 1 - 5 years 6 - 10 years 11 - 17 years PTT Mean: 35.4 (27.6-45.6) Mean: 33.5 (24.8-40.7) Mean: 32.4 (25.1-40.7) Mean: 31.6 (24.0-39.2) Mean: 31.6 (26.9-38.7) Mean: 31.0 (24.6-38.4) Pediatric Reference ranges were obtained from a study by delgado Denson prepared from 1437 samples obtained at 7 different centers using the same coagulation reagent and instrumentation as [facility]. Currently there are no coagulation studies available worldwide for children to 14 days, and no normal ranges. Heparin therapeutic range (represented by Anti-Factor Xa activity of 0.2 - 0.4 U/mL) corresponds to PTT of 56.6 - 109.0 sec. Performed By: #### 1 [id number] #### [facility] [address] [place] [address] INR Coag (PPP) [Relative time] 0.96 {INR} Invalid Interpretation Code [facility] Comment on above: Result Comment: INR results are specifically intended to assess patients stabilized on long-term Anticoagulation therapy suggested INR?s ?Less Intensive Anticoagulation? 2.0 ? 3.0 Conventional Range 3.0 ? 4.5 Performed By: #### 1 [id number] #### [facility] [address] [place] [address] PT Coag (PPP) [Time] 10.7 second(s) Normal 9.4-12.5 [facility] Comment on above: Result Comment: 15 d ays - 4 weeks 1 - 5 months 6 -11 months 1 ? 5 years 6 ? 10 years 11 -17 years Mean: 11.2 (9.5 ? 12.6) Mean: 11.0 (9.7 ? 12.8) Mean: 11.0 (9.8 ? 13.0) Mean: 11.3 (9.9 ? 13.4) Mean: 11.7 (10.0 ? 14.6) Mean: 11.8 (10.0 - 14.1) Pediatric Reference ranges were obtained from a study by delgado Denson prepared from 1437 samples obtained at 7 different centers using the same coagulation reagent and instrumentation as [facility]. Currently there are no coagulation studies available worldwide for children to 14 days, and no normal ranges. Performed By: #### 1 [id number] #### [facility] [address] [place] [address] Troponin 0 Hr.on 08-25-2023 Troponin HS <2.30 Low 10.10-27.10 [facility] Comment on above: Result Comment: The 95% CI (Confidence Interval) PPV (Positive Predictive Value) for myocardial infarction in females is 38 pg/mL, in males 51 pg/mL. The results should be used in conjunction with clinical conditions of myocardial infarction. (Access High Sensitivity Troponin I Instructions For Use, Jorje [place], September 2017) Performed By: #### 1 [id number] #### [facility] [address] [place] [address] eGFRon 08-25-2023 eGFR 124 mL/min/1.73 m2 Normal >=59 [facility] Comment on above: Order Comment: Order added by Discern Expert. Performed By: #### 1 [id number] #### [facility] [address] [place] [address] Quantiferon-TB Plus (Client Incubated)on 06-28-2023 Gamma interferon background IA Qn (Bld) 0.05 International_Unit/mL Invalid Interpretation Code [facility] Comment on above: Performed By: #### 2 [id number], [id number], [id number], [id number] #### [facility] [address] [place] [address] M. tuberculosis stim IFN-g by CD4+ CD8+ T-cells corrected for background Qn (Bld) 0.04 International_Unit/mL Invalid Interpretation Code [facility] Comment on above: Performed By: #### 2 [id number], [id number], [id number], [id number] #### [facility] [address] [place] [address] M. tuberculosis stim IFN-g by CD4+ T-cells corrected for background Qn (Bld) 0.04 International_Unit/mL Invalid Interpretation Code [facility] Comment on above: Performed By: #### 2 106296, [id number], [id number], [id number] #### [facility] [address] [place] [address] M. tuberculosis stim IFN-g Ql (Bld) [Interp] Negative Invalid Interpretation Code Negative [facility] Comment on above: Result Comment: No r esponse to M tuberculosis antigens detected. Infection with M tuberculosis is unlikely, but high risk individuals should be considered for additional testing (ATS/IDSA/CDC Clinical Practice Guidelines, 2017). The reference range is an Antigen minus Nil result of <0.35 IU/mL. The specimen received for QuantiFERON testing was incubated by the ordering institution. Specific procedures outlined in our Directory of Services and in the package insert for the QuantiFERON Gold (In Tube) test must be followed to enable for proper stimulation of cells for the production of interferon gamma. Chemiluminescence immunoassay methodology Performed at: [facility] [id number] PhD Allen Allan Performed By: #### 2 [id number], [id number], [id number], [id number] #### [facility] [address] [place] [address] Mitogen stimulated gamma interferon corrected for background Qn (Bld) >10.[address] [facility] Comment on above: Performed By: #### 2 [id number], [id number], [id number], [id number] #### [facility] [address] [place] [address] Service comment (Unsp spec) [Interp] Comment Invalid Interpretation Code [facility] Comment on above: Result Comment: Saeed tiFERON-TB Gold Plus is a qualitative indirect test for M tuberculosis infection (including disease) and is intended for use in conjunction with risk assessment, radiography, and other medical and diagnostic evaluations. The QuantiFERON-TB Gold Plus result is determined by subtracting the Nil value from either TB antigen (Ag) value. The Mitogen tube serves as a control for the test. Performed By: #### 2 [id number], [id number], [id number], [id number] #### [facility] [address] [place] [address] Hep Bs Abon 06-27-2023 HBV surface Ab Ql (S) Reactive Invalid Interpretation Code [facility] Comment on above: Result Comment: Non Reactive: Inconsistent with immunity, less than 10 mIU/mL Reactive: Consistent with immunity, greater than 9.9 mIU/mL Performed at: [address] [id number] PhD Allen Allan Performed By: #### 2 789532, [id number], [id number], [id number] #### [facility] [address] [place] [address] Measles/Mumps/Rubella Immuni tyon 06-27-2023 MeV IgG IA Qn (S) {index_val} Invalid Interpretation Code Immune >16.4 [facility] Comment on above: Result Comment: Nega tive <13.5 Equivocal 13.5 - 16.4 Positive >16.4 Presence of antibodies to Rubeola is presumptive evidence of immunity except when acute infection is suspected. Performed By: #### 2 401092, [id number], [id number], [id number] #### [facility] [address] [place] [address] MuV IgG IA Qn (S) 12.7 A unit/mL Invalid Interpretation Code Immune >10.9 [facility] Comment on above: Result Comment: Nega tive <9.0 Equivocal 9.0 - 10.9 Positive >10.9 A positive result generally indicates past exposure to Mumps virus or previous vaccination. Performed at: [address] [id number] PhD Allen Allan Performed By: #### 2 [id number], [id number], [id number], [id number] #### [facility] [address] [place] [address] Rubella virus IgG Qn (S) 8.63 [IU]/mL Invalid Interpretation Code Immune >0.99 [facility] Comment on above: Result Comment: Non- immune <0.90 Equivocal 0.90 - 0.99 Immune >0.99 Performed By: #### 2 883392, [id number], [id number], [id number] #### [facility] [address] [place] [address] Varic IgGon 06-27-2023 VZV IgG IA Qn (S) 1013 Invalid Interpretation Code Immune >165 [facility] Comment on above: Result Comment: Nega tive <135 Equivocal 135 - 165 Positive >165 A positive result generally indicates exposure to the pathogen or administration of specific immunoglobulins, but it is not indication of active infection or stage of disease. Performed at: [facility] [id number] PhD Allen Allan Performed By: #### 2 882873, [id number], [id number], [id number] #### [facility] [address] [place] [address] Adilson Kiton 10-18-2022 Adilson Kit Forwarded to Adilson Normal [facility] Comment on above: Performed By: #### N ATER #### [facility] [address] [place], [place] [id number] Undercollar Baster: Neeraj Cabrera MD ER URINE PROFILEon 3 Bilirubin Ql (U) Negative Normal NEGATIVE [facility] Comment on above: Performed By: #### SHIMA OSBORNRO ####[facility] [address] [place] [address]Dr. Jc Norris Clarity (U) CLEAR Normal CLEAR [facility] Comment on above: Performed By: #### Jackelyn BOTELLO UMICRO ####[facility] [address] [place] [address]Dr. Jc Norris Color (U) LT. YELLOW Normal YELLOW [facility] Comment on above: Performed By: #### Jackelyn BOTELLO UMICRO ####[facility] [address] [place] [address]Dr. Jc Norris ERUAHD A micrscopic examination will be performed if indicated. Normal [facility] Comment on above: Performed By: #### SHIMA OSBORNRO ####[facility] [address] [place] [address]Dr. Jc Norris Glucose Ql (U) Negative Normal NEGATIVE [facility] Comment on above: Performed By: #### Jackelyn BOTELLO UMDAWNRO ####[facility] [address] [place] [address]Dr. Jc Norris Hemoglobin Ql (U) MODERATE Abnormal NEGATIVE [facility] Comment on above: Performed By: #### SHIMA OSBORNRO ####[facility] [address] [place] [address]Dr. Jc Norris Ketones Ql (U) Negative Normal NEGATIVE [facility] Comment on above: Performed By: #### SHIMA OSBORNRO ####[facility] [address] [place], [place] [address]Dr. Kathleenkendall Jr LEUKOCYTES SMALL Abnormal NEGATIVE [facility] Comment on above: Performed By: #### SHIMA OSBORNRO ####[facility] [address] [place], [place] [address]Dr. Jc Norris Nitrite Ql (U) Negative Normal NEGATIVE [facility] Comment on above: Performed By: #### SHIMA OSBORNRO ####[facility] [address] [place], [place] [address]Dr. Jc Norris pH (U) 6.5 [pH] Normal 5-9 [facility] Comment on above: Performed By: #### SHIMA OSBORNRO ####[facility] [address] [place], [place] [address]Dr. Jc Jr SPEC GRAVITY 1.020 Normal 1.005-<=1.02 5 [facility] Comment on above: Performed By: #### SHIMA OSBORNRO ####[facility] [address] [place] [address]Dr. Jc Jr UA PROTEIN Negative Normal NEGATIVE/ TRACE [facility] Comment on above: Performed By: #### SHIMA OSBORNRO ####[facility] [address] [place] [address]Dr. Jc Norris UR MICRO IND INDICATED Normal [facility] Comment on above: Performed By: #### IVET OSBORN ####[facility] [address] [place], [place] [address]Dr. Jc Norris Urobilinogen Qn (U) 0.2 {Diamond'U}/dL Normal 0.2 - 1. 0 [facility] Comment on above: Performed By: #### SHIMA OSBORNRO ####[facility] [address] [place], [place] [address]Dr. Jc Norris URINE MICROSCOPIC ONLYon BACTERIA TRACE Abnormal NONE SEEN The [facility] Comment on above: Performed By: #### SHIMA OSBORNRO ####[facility] [address] [place], [place] [address]Dr. Jc Norris Bacteria identified Cx Nom (U) NOT INDICATED Normal [facility] Comment on above: Performed By: #### SHIMA OSBORNRO ####[facility] [address] [place], [place] [address]Dr. Jc Norris CAST NONE SEEN Normal NONE SEEN [facility] Comment on above: Performed By: #### SHIMA OSBORNRO ####[facility] [address] [place], [place] [address]Dr. Jc Norris Crystals LM Nom (Urine sed) NONE SEEN Normal NONE SEEN The [facility] Comment on above: Performed By: #### SHIMA OSBORNRO ####[facility] [address] [place], [place] [address]Dr. Jc Norris Epithelial cells LM Ql (Urine sed) MODERATE Abnormal NONE SEEN /RARE [facility] Comment on above: Performed By: #### SHIMA OSBORNRO ####[facility] [address] [place], [place] [address]Dr. Jc Norris MUCOUS TRACE Abnormal NONE SEEN The [facility] Comment on above: Performed By: #### IVET OSBORN ####[facility] [address] [place], [place] [address]Dr. Jc Norris RBC 2-5 Abnormal 0-2 [facility] Comment on above: Performed By: #### E RUSHIMA WilhelmRO ####[facility] [address] [place] [id number]. Jc Norris WBC 2-5 Abnormal NONE SEEN [facility] Comment on above: Performed By: #### E RUChoco UMICRO ####[facility] [address] [place] [id number]. Jc Norris HEP B SURFACE ANTIGEN SCREEN on 07-01-2022 HBsAg Screen Negative Normal Negative [facility] Comment on above: Performed By: #### C MP, LIPID, TSH, T7, BNP #### [facility] [address] [place], [place] [address] Dr. Jc Norris HEPATITIS C VIRUS AB W/ REFL EX QUANTon 07-01-2022 HCV AB Non-Reactive Normal Non Reactive [facility] Comment on above: Performed By: #### H CVPCRR ####[facility] [address] [place] [id number] Norris Interpretation: Comment Normal [facility] Comment on above: Result Comment: Not infected with HCV unless early or acute infection is suspected (which may be delayed in an immunocompromised individual), or other evidence exists to indicate HCV infection. Performed By: #### H CVPCRR ####[facility] [address] [place] [id number] Norris RPR QUANTon 07-01-2022 Rapid Plasma Reagin, Quant Non-Reactive Normal NonRea<1:1 [facility] Comment on above: Result Comment: Plea se Note: This test does not meet current guidelines for screening and diagnosis of syphilis. This test is intended for following treatment response in patients being treated for syphilis infection. To screen for syphilis infection, a reflex cascade that includes both RPR and a treponema-specific assay should be utilized, such as Treponema pallidum (Syphilis) Screening [place] (490730) or Rapid Plasma Reagin (RPR) Test With Reflex to Quantitative RPR and Confirmatory Treponema pallidum Antibodies ([id number]). Performed By: #### R PRQ ####[facility] [address] [place] [address]Dr. Jc Norris RUBELLA AB IGGon 07-01-2022 Rubella Antibodies, IgG 3.13 index Normal Immune >0.99 [facility] Comment on above: Result Comment: Non- immune <0.90 Equivocal 0.90 - 0.99 Immune >0.99 Performed By: #### C BC #### [facility] [address] [place] [address] Dr. Jc Norris BOX TEST SENT OUTon 07-01-19 SENT TO REF LAB 06/30/22 Normal [facility] Comment on above: Performed By: #### C MP, LIPID, TSH, T7, BNP #### [facility] [address] [place] [address] Dr. Jc Norris CBC AUTO DIFFon 06-30-2022 BASO # 0.0 103/ul Normal 0.0-0.1 [facility] Comment on above: Performed By: #### C BC #### [facility] [address] [place] [address] Dr. Jc Norris Basophils/100 WBC (Bld) 0.4 % Normal 0.2-2.0 [facility] Comment on above: Performed By: #### C BC #### [facility] [address] [place] [address] Dr. Jc Norris EO # 0.1 103/ul Normal 0.0-0.7 [facility] Comment on above: Performed By: #### C BC #### [facility] [address] [place] [address] Dr. Jc Norrsi Eosinophils/100 WBC (Bld) 0.7 % Critically low 0.9-7.0 [facility] Comment on above: Performed By: #### C BC #### [facility] [address] [place] [address] Dr. Jc Norris Erythrocyte distribution width (RBC) [Ratio] 12.6 % Normal 11.0-15.0 [facility] Comment on above: Performed By: #### C BC #### [facility] [address] [place] [address] Dr. Jc Norris Hematocrit (Bld) [Volume fraction] 40.1 % Normal 36.0-48.0 [facility] Comment on above: Performed By: #### C BC #### [facility] [address] [place] [address] Dr. Jc Norris Hemoglobin (Bld) [Mass/Vol] 13.2 g/dL Normal 12.0-16.0 [facility] Comment on above: Performed By: #### C BC #### [facility] [address] [place] [address] Dr. Jc Norris IG # 0.05 10e3/ul Critically high 0.00-0.03 [facility] Comment on above: Performed By: #### C BC #### [facility] [address] [place] [address] Dr. Jc Norris IG % 0.6 % Critically high 0.0-0.5 [facility] Comment on above: Performed By: #### C BC #### [facility] [address] [place] [address] Dr. Jc Norris LYMPH # 1.3 103/ul Normal 1.2-3.8 [facility] Comment on above: Performed By: #### C BC #### [facility] [address] [place] [address] Dr. Jc Norris Lymphocytes/100 WBC (Bld) 16.3 % Critically low 20.5-60.0 [facility] Comment on above: Performed By: #### C BC #### [facility] [address] [place] [address] Dr. Jc Norris MANUAL DIFF REQ NO Normal [facility] Comment on above: Performed By: #### C BC #### [facility] [address] [place] [address] Dr. Jc Norris MCH (RBC) [Entitic mass] 28.1 pg Normal 26.7-34.0 [facility] Comment on above: Performed By: #### C BC #### [facility] [address] [place] [address] Dr. Jc Norris MCHC (RBC) [Mass/Vol] 32.9 g/dL Normal 29.9-35.2 [facility] Comment on above: Performed By: #### C BC #### [facility] [address] [address] [address] Jc Norris MCV (RBC) [Entitic vol] 85.5 fL Normal 81.0-99.0 [facility] Comment on above: Performed By: #### C BC #### [facility] [address] [address] [address] Jc Norris MONO # 0.5 103/ul Normal 0.3-0.8 [facility] Comment on above: Performed By: #### C BC #### [facility] [address] [place] [address] Dr. Jc Norris Monocytes/100 WBC (Bld) 6.4 % Normal 1.7-12.0 [facility] Comment on above: Performed By: #### C BC #### [facility] [address] [place] [address] Dr. Jc Norris NEUT # 6.1 103/ul Normal 1.4-6.5 [facility] Comment on above: Performed By: #### C BC #### [facility] [address] [place] [address] Dr. Jc Norris Neutrophils/100 WBC (Bld) 75.6 % Critically high 43.0-75.0 [facility] Comment on above: Performed By: #### C BC #### [facility] [address] [place] [address] Dr. Jc Norris Platelet mean volume (Bld) [Entitic vol] 10.7 fL Normal 9.5-13.5 [facility] Comment on above: Performed By: #### C BC #### [facility] [address] [place] [address] Dr. Jc Norris PLT 213 103/ul Normal 150-450 [facility] Comment on above: Performed By: #### C BC #### [facility] [address] [place] [address] Dr. Jc Norris RBC 4.69 106/ul Normal 4.20-5.40 [facility] Comment on above: Performed By: #### C BC #### [facility] [address] [address] [address] Jc Norris WBC 8.1 103/ul Normal 4.0-11.0 [facility] Comment on above: Performed By: #### C BC #### [facility] [address] [address] [address] Jc Norris CULTURE URINEon 06-30-2022 CULTURE URINE Culture Observations : NO GROWTH. Normal [facility] Comment on above: Performed By: #### U RCX ####[facility] [address] [address]Dr. Jc Norris GLYCOHEMOGLOBIN A1Con 2022 ADA RECOMMENDATION SEE BELOW Normal [facility] Comment on above: Result Comment: ADA RECOMMENDED LIMIT 4.0 - 6.0 ADA THERAPEUTIC TARGET < 7.0 ACTION SUGGESTED > 7.0 Performed By: #### C MP, LIPID, TSH, T7, BNP #### [facility] [address] [address] [address] Jc Norris Glucose [Mass/Vol] 105 mg/dL Normal [facility] Comment on above: Performed By: #### C MP, LIPID, TSH, T7, BNP #### [facility] [address] [address] [address] Jc Norris HbA1c (Bld) [Mass fraction] 5.3 % Normal 4.5-6.2 [facility] Comment on above: Performed By: #### C MP, LIPID, TSH, T7, BNP #### [facility] [address] [address] [address] Jc Norris TSHon 06-30-2022 TSH 1.580 uIU/mL Normal 0.358-3.740 [facility] Comment on above: Performed By: #### C MP, LIPID, TSH, T7, BNP #### [facility] [address] [address] [address] Jc Norris TYPE AND SCREENon 06-30-2022 TYPE AND SCREEN Negative Normal [facility] Comment on above: Performed By: #### T NS ####[facility] [id number] [id number]. Jc Norris US PREG TVon 06-28-2022 US [...] HEATHER ANDREWS Date: 2022-06-28 15:19 Normal [facility] ABO AND RH TYPEon 06-13-2022 ABO and Rh group Nom (Bld) ABO Rh Typing O Rh Positive Normal [facility] Comment on above: Performed By: #### A LEWIS ####[facility] [address] [address]Dr. Jc Norris CBC AUTO DIFFon 06-13-2022 BASO # 0.0 103/ul Normal 0.0-0.1 [facility] Comment on above: Performed By: #### C BC #### [facility] [address] [place] [address] Dr. Jc Norris Basophils/100 WBC (Bld) 0.2 % Normal 0.2-2.0 [facility] Comment on above: Performed By: #### C BC #### [facility] [address] [place] [address] Dr. Jc Norris EO # 0.1 103/ul Normal 0.0-0.7 [facility] Comment on above: Performed By: #### C BC #### [facility] [address] [place] [address] Dr. Jc Norris Eosinophils/100 WBC (Bld) 0.5 % Critically low 0.9-7.0 [facility] Comment on above: Performed By: #### C BC #### [facility] [address] [place] [address] Dr. Jc Norris Erythrocyte distribution width (RBC) [Ratio] 12.4 % Normal 11.0-15.0 [facility] Comment on above: Performed By: #### C BC #### [facility] [address] [place] [address] Dr. Jc Norris Hematocrit (Bld) [Volume fraction] 41.0 % Normal 36.0-48.0 [facility] Comment on above: Performed By: #### C BC #### [facility] [address] [place] [address] Dr. Jc Norris Hemoglobin (Bld) [Mass/Vol] 13.3 g/dL Normal 12.0-16.0 [facility] Comment on above: Performed By: #### C BC #### [facility] [address] [place] [address] Dr. Jc Norris IG # 0.05 10e3/ul Critically high 0.00-0.03 [facility] Comment on above: Performed By: #### C BC #### [facility] [address] [place] [address] Dr. Jc Norris IG % 0.5 % Normal 0.0-0.5 [facility] Comment on above: Performed By: #### C BC #### [facility] [address] [place] [address] Dr. Jc Norris LYMPH # 1.3 103/ul Normal 1.2-3.8 [facility] Comment on above: Performed By: #### C BC #### [facility] [address] [place] [address] Dr. Jc Norris Lymphocytes/100 WBC (Bld) 12.8 % Critically low 20.5-60.0 [facility] Comment on above: Performed By: #### C BC #### [facility] [address] [place] [address] Dr. Jc Norris MANUAL DIFF REQ NO Normal [facility] Comment on above: Performed By: #### C BC #### [facility] [address] [place] [address] Dr. Jc Norris MCH (RBC) [Entitic mass] 27.9 pg Normal 26.7-34.0 [facility] Comment on above: Performed By: #### C BC #### [facility] [address] [place] [address] Dr. Jc Norris MCHC (RBC) [Mass/Vol] 32.4 g/dL Normal 29.9-35.2 [facility] Comment on above: Performed By: #### C BC #### [facility] [address] [place] [address] Dr. Jc Norris MCV (RBC) [Entitic vol] 86.1 fL Normal 81.0-99.0 [facility] Comment on above: Performed By: #### C BC #### [facility] [address] [place] [address] Dr. Jc Norris MONO # 0.6 103/ul Normal 0.3-0.8 [facility] Comment on above: Performed By: #### C BC #### [facility] [address] [place] [address] Dr. Jc Norris Monocytes/100 WBC (Bld) 6.4 % Normal 1.7-12.0 [facility] Comment on above: Performed By: #### C BC #### [facility] [address] [place] [address] Dr. Jc Norris NEUT # 7.9 103/ul Critically high 1.4-6.5 [facility] Comment on above: Performed By: #### C BC #### [facility] [address] [place] [address] Dr. Jc Norris Neutrophils/100 WBC (Bld) 79.6 % Critically high 43.0-75.0 [facility] Comment on above: Performed By: #### C BC #### [facility] [address] [place] [address] Dr. Jc Norris Platelet mean volume (Bld) [Entitic vol] 11.1 fL Normal 9.5-13.5 [facility] Comment on above: Performed By: #### C BC #### [facility] [address] [address] [address] Jc Norris PLT 232 103/ul Normal 150-450 [facility] Comment on above: Performed By: #### C BC #### [facility] [address] [address] [address] Jc Norris RBC 4.76 106/ul Normal 4.20-5.40 [facility] Comment on above: Performed By: #### C BC #### [facility] [address] [address] [address] Jc Norris WBC 9.9 103/ul Normal 4.0-11.0 [facility] Comment on above: Performed By: #### C BC #### [facility] [address] [address] [address] Jc Norris CULTURE URINEon 06-13-2022 CULTURE URINE Culture Observations : LIGHT GROWTH OF MIXED GENITAL GENIE. NO POTENTIAL PATHOGENS SEEN. Normal [facility] Comment on above: Performed By: #### U RCX ####[facility] [address] [address]Dr. Jc Norris ER URINE PROFILEon 3 Bilirubin Ql (U) Negative Normal NEGATIVE [facility] Comment on above: Performed By: #### U MICRO, ERUR, PREGU ####[facility] [address] [address]DrEric Norris Clarity (U) CLEAR Normal CLEAR [facility] Comment on above: Performed By: #### U MICRO, ERUR, PREGU ####[facility] [address] [address]DrEric Norris Color (U) LT. YELLOW Normal YELLOW [facility] Comment on above: Performed By: #### U MICRO, ERUR, PREGU ####[facility] [address] [id number] Norris ERUAHD A micrscopic examination will be performed if indicated. Normal [facility] Comment on above: Performed By: #### U MICRO, ERUR, PREGU ####[facility] [address] [address]Dr. Jc Norris Glucose Ql (U) Negative Normal NEGATIVE [facility] Comment on above: Performed By: #### U MICRO, ERUR, PREGU ####[facility] [address] [address]Dr. Jc Norris Hemoglobin Ql (U) Negative Normal NEGATIVE [facility] Comment on above: Performed By: #### U MICRO, ERUR, PREGU ####[facility] [address] [address]Dr. Jc Norris Ketones Ql (U) Negative Normal NEGATIVE [facility] Comment on above: Performed By: #### U MICRO, ERUR, PREGU ####[facility] [address] [address]Dr. Jc Norris LEUKOCYTES MODERATE Abnormal NEGATIVE [facility] Comment on above: Performed By: #### U MICRO, ERUR, PREGU ####[facility] [address] [address]Dr. Jc Norris Nitrite Ql (U) Negative Normal NEGATIVE [facility] Comment on above: Performed By: #### U MICRO, ERUR, PREGU ####[facility] [address] [address]Dr. Jc Norris pH (U) 5.0 [pH] Normal 5-9 [facility] Comment on above: Performed By: #### U MICRO, ERUR, PREGU ####[facility] [address] [address]Dr. Jc Norris SPEC GRAVITY 1.010 Normal 1.005-<=1.02 5 [facility] Comment on above: Performed By: #### U MICRO, ERUR, PREGU ####[facility] [address] [address]Dr. Jc Norris UA PROTEIN Negative Normal NEGATIVE/ TRACE [facility] Comment on above: Performed By: #### U MICRO, ERUR, PREGU ####[facility] [address] [id number]. Jc Norris UR MICRO IND INDICATED Normal [facility] Comment on above: Performed By: #### U MICRO, ERUR, PREGU ####[facility] [address] [address]Dr. Jc Norris Urobilinogen Qn (U) 0.2 {Diamond'U}/dL Normal 0.2 - 1. 0 [facility] Comment on above: Performed By: #### U MICRO, ERUR, PREGU ####[facility] [address] [address]Dr. cJ Norris PREG QUANT HCGon 06-13-2022 HCG QUANT 41729 mIU/mL Normal [facility] Comment on above: Performed By: #### C BC #### [facility] [address] [address] [address] Jc Norris HCG RANGE SEE BELOW Normal [facility] Comment on above: Result Comment: 5-50 0.2-1 WEEK 50-500 1-2 WEEKS 100-5,000 2-3 WEEKS 500-10,000 3-4 WEEKS 1,000-50,000 4-5 WEEKS 10,000-100,000 5-6 WEEKS 15,000-200,000 6-8 WEEKS 10,000-100,000 2-3 MONTHS Performed By: #### C BC #### [facility] [address] [address] [address] Jc Norris URon 06-13-2022 , QUAL Positive Abnormal NEGATIVE [facility] Comment on above: Performed By: #### U MICRO, ERUR, PREGU ####[facility] [address] [address]DrEric Norris PROF 14(COMP METB)on 023 Albumin [Mass/Vol] 3.6 g/dL Normal 3.4-5.0 [facility] Comment on above: Performed By: #### C BC #### [facility] [address] [address] [address] Jc Norris Albumin/Globulin [Mass ratio] 1.0 {ratio} Normal [facility] Comment on above: Performed By: #### C BC #### [facility] [address] [address] [address] Jc Norris ALP [Catalytic activity/Vol] 84 U/L Normal 46-116 [facility] Comment on above: Performed By: #### C BC #### [facility] [address] [address] [address] Jc Norris ALT [Catalytic activity/Vol] 18 U/L Normal 14-59 [facility] Comment on above: Performed By: #### C BC #### [facility] [address] [address] [address] Jc Norris Anion gap [Moles/Vol] 10.9 mmol/L Normal Th [facility] Comment on above: Performed By: #### C BC #### [facility] [address] [place] [address] Dr. Jc Norris AST [Catalytic activity/Vol] 13 U/L Critically low 15-37 [facility] Comment on above: Performed By: #### C BC #### [facility] [address] [place] [address] Dr. Jc Norris Bilirubin [Mass/Vol] 0.2 mg/dL Normal 0.2-1.0 [facility] Comment on above: Performed By: #### C BC #### [facility] [address] [place] [address] Dr. Jc Norris Calcium [Mass/Vol] 9.1 mg/dL Normal 8.5-10.1 [facility] Comment on above: Performed By: #### C BC #### [facility] [address] [place] [address] Dr. Jc Norris Chloride [Moles/Vol] 102 mmol/L Normal 98-107 [facility] Comment on above: Performed By: #### C BC #### [facility] [address] [place] [address] Dr. Jc Norris CO2 [Moles/Vol] 25.8 mmol/L Normal 21.0-32.0 [facility] Comment on above: Performed By: #### C BC #### [facility] [address] [address] [address] Jc Norris Creatinine [Mass/Vol] 0.52 mg/dL Critically low 0.55-1.02 [facility] Comment on above: Performed By: #### C BC #### [facility] [address] [address] [address] Jc Norris EGFR-AF NICARAGUAN >60 Normal >=60 [facility] Comment on above: Performed By: #### C BC #### [facility] [address] [address] [address] Jc Norris EGFR-NON AF NICARAGUAN >60 Normal >=60 [facility] Comment on above: Performed By: #### C BC #### [facility] [address] [place] [address] Dr. Jc Norris Globulin (S) [Mass/Vol] 3.5 g/dL Normal [facility] Comment on above: Performed By: #### C BC #### [facility] [address] [place] [address] Dr. Jc Norris Glucose [Mass/Vol] 104 mg/dL Normal 74-106 [facility] Comment on above: Performed By: #### C BC #### [facility] [address] [place] [address] Dr. Jc Norris Potassium [Moles/Vol] 3.7 mmol/L Normal 3.5-5.1 [facility] Comment on above: Performed By: #### C BC #### [facility] [address] [place] [address] Dr. Jc Norris Protein [Mass/Vol] 7.1 g/dL Normal 6.4-8.2 [facility] Comment on above: Performed By: #### C BC #### [facility] [address] [place] [address] Dr. Jc Norris Sodium [Moles/Vol] 135 mmol/L Critically low 136-145 Th [facility] Comment on above: Performed By: #### C BC #### [facility] [address] [place] [address] Dr. Jc Norris Urea nitrogen [Mass/Vol] 8.0 mg/dL Normal 7.0-18.0 [facility] Comment on above: Performed By: #### C BC #### [facility] [address] [address] [address] Jc Norris Urea nitrogen/Creatinine [Mass ratio] 15.4 mg/mg Normal [facility] Comment on above: Performed By: #### C BC #### [facility] [address] [address] [address] Jc Norris URINE MICROSCOPIC ONLYon BACTERIA NONE SEEN Normal NONE SEEN [facility] Comment on above: Performed By: #### U MICRO, ERUR, PREGU ####[facility] [address] [address]DrEric Norris Bacteria identified Cx Nom (U) INDICATED Normal [facility] Comment on above: Performed By: #### U MICRO, ERUR, PREGU ####[facility] [address] [address]DrEric Norris CAST NONE SEEN Normal NONE SEEN [facility] Comment on above: Performed By: #### U MICRO, ERUR, PREGU ####[facility] [address] [address]DrEric Norris Crystals LM Nom (Urine sed) NONE SEEN Normal NONE SEEN [facility] Comment on above: Performed By: #### U MICRO, ERUR, PREGU ####[facility] [address] [address]DrEric Norris Epithelial cells LM Ql (Urine sed) FEW Abnormal NONE SEEN /RARE [facility] Comment on above: Performed By: #### U MICRO, ERUR, PREGU ####[facility] [address] [address]DrEric Norris MUCOUS TRACE Abnormal NONE SEEN [facility] Comment on above: Performed By: #### U MICRO, ERUR, PREGU ####[facility] [address] [address]DrEric Norris RBC NONE SEEN Abnormal 0-2 [facility] Comment on above: Performed By: #### U MICRO, ERUR, PREGU ####[facility] [address] [address]Dr. Jc Norris WBC 10-20 Abnormal NONE SEEN [facility] Comment on above: Performed By: #### U MICRO, ERUR, PREGU ####[facility] [address] [id number] Norris US PREG TVon 06-13-2022 US PREG [...] NILDA HANDLEY Date: 2022-06-13 14:30 Normal [facility] PREG QUANT HCGon 06-02-2022 HCG QUANT 5289 mIU/mL Normal [facility] Comment on above: Performed By: #### C BC #### [facility] [address] [place] [address] Dr. Jc Norris HCG RANGE SEE BELOW Normal [facility] Comment on above: Result Comment: 5-50 0.2-1 WEEK 50-500 1-2 WEEKS 100-5,000 2-3 WEEKS 500-10,000 3-4 WEEKS 1,000-50,000 4-5 WEEKS 10,000-100,000 5-6 WEEKS 15,000-200,000 6-8 WEEKS 10,000-100,000 2-3 MONTHS Performed By: #### C BC #### [facility] [address] [place] [address] Dr. Jc Norris PREG QUANT HCGon 05-31-2022 HCG QUANT 3671 mIU/mL Normal [facility] Comment on above: Performed By: #### C MP, LIPID, TSH, T7, BNP #### [facility] [address] [address] [address] Jc Norris HCG RANGE SEE BELOW Normal [facility] Comment on above: Result Comment: 5-50 0.2-1 WEEK 50-500 1-2 WEEKS 100-5,000 2-3 WEEKS 500-10,000 3-4 WEEKS 1,000-50,000 4-5 WEEKS 10,000-100,000 5-6 WEEKS 15,000-200,000 6-8 WEEKS 10,000-100,000 2-3 MONTHS Performed By: #### C MP, LIPID, TSH, T7, BNP #### [facility] [address] [place] [address] Dr. Jc Norris PREG QUANT HCGon 05-29-2022 HCG QUANT 1965 mIU/mL Normal [facility] Comment on above: Performed By: #### P REGQNT ####[facility] [address] [address]Dr. Jc Norris HCG RANGE SEE BELOW Normal [facility] Comment on above: Result Comment: 5-50 0.2-1 WEEK 50-500 1-2 WEEKS 100-5,000 2-3 WEEKS 500-10,000 3-4 WEEKS 1,000-50,000 4-5 WEEKS 10,000-100,000 5-6 WEEKS 15,000-200,000 6-8 WEEKS 10,000-100,000 2-3 MONTHS Performed By: #### P REGQNT ####[facility] [address] [place], [place] [address]Dr. Jc Norris US PELVIS AND TRANSVAGon US [...] NILDA HANDLEY Date: 2022-05-04 14:31 Normal [facility] CULTURE URINEon 04-07-2022 CULTURE URINE Isolate 1 [...] F Trimethoprim/Sulfamet hoxazole >=320 R F Normal [facility] Comment on above: Performed By: #### U RCX ####[facility] [address] [address]Dr. Jc Norris ER URINE PROFILEon 3 Bilirubin Ql (U) Negative Normal NEGATIVE [facility] Comment on above: Performed By: #### C MP, LIPID, TSH, T7, BNP #### [facility] [address] [place] [address] Dr. Jc Norris Clarity (U) SL CLOUDY Abnormal CLEAR [facility] Comment on above: Performed By: #### C MP, LIPID, TSH, T7, BNP #### [facility] [address] [place] [address] Dr. Jc Norris Color (U) LT. YELLOW Normal YELLOW [facility] Comment on above: Performed By: #### C MP, LIPID, TSH, T7, BNP #### [facility] [address] [place] [address] Dr. Jc Norris ERUAHD A micrscopic examination will be performed if indicated. Normal [facility] Comment on above: Performed By: #### C MP, LIPID, TSH, T7, BNP #### [facility] [address] [address] [address] Jc Norris Glucose Ql (U) Negative Normal NEGATIVE [facility] Comment on above: Performed By: #### C MP, LIPID, TSH, T7, BNP #### [facility] [facility] [address] [address] [address] Jc Norris Hemoglobin Ql (U) MODERATE Abnormal NEGATIVE [facility] Comment on above: Performed By: #### C MP, LIPID, TSH, T7, BNP #### [facility] [address] [place] [address] Dr. Jc Norris Ketones Ql (U) Negative Normal NEGATIVE [facility] Comment on above: Performed By: #### C MP, LIPID, TSH, T7, BNP #### [facility] [address] [place] [address] Dr. Jc Norris LEUKOCYTES SMALL Abnormal NEGATIVE [facility] Comment on above: Performed By: #### C MP, LIPID, TSH, T7, BNP #### [facility] [address] [place] [address] Dr. Jc Norris Nitrite Ql (U) Positive Abnormal NEGATIVE [facility] Comment on above: Performed By: #### C MP, LIPID, TSH, T7, BNP #### [facility] [address] [place] [address] Dr. Jc Norris pH (U) 5.5 [pH] Normal 5-9 [facility] Comment on above: Performed By: #### C MP, LIPID, TSH, T7, BNP #### [facility] [address] [place] [address] Dr. Jc Norris SPEC GRAVITY 1.025 Normal 1.005-<=1.02 5 [facility] Comment on above: Performed By: #### C MP, LIPID, TSH, T7, BNP #### [facility] [address] [place] [address] Dr. Jc Norris UA PROTEIN Negative Normal NEGATIVE/ TRACE [facility] Comment on above: Performed By: #### C MP, LIPID, TSH, T7, BNP #### [facility] [address] [place] [address] Dr. Jc Norris UR MICRO IND INDICATED Normal [facility] Comment on above: Performed By: #### C MP, LIPID, TSH, T7, BNP #### [facility] [address] [place] [address] Dr. Jc Norris Urobilinogen Qn (U) 0.2 {Diamond'U}/dL Normal 0.2 - 1. 0 [facility] Comment on above: Performed By: #### C MP, LIPID, TSH, T7, BNP #### [facility] [address] [place] [address] Dr. Jc Norris URon 04-05-2022 , QUAL Negative Normal NEGATIVE The [facility] Comment on above: Performed By: #### C MP, LIPID, TSH, T7, BNP #### [facility] [address] [place] [address] Dr. Jc Norris URINE MICROSCOPIC ONLYon BACTERIA MODERATE Abnormal NONE SEEN The [facility] Comment on above: Performed By: #### C MP, LIPID, TSH, T7, BNP #### [facility] [address] [place] [address] Dr. Jc Norris Bacteria identified Cx Nom (U) INDICATED Normal [facility] Comment on above: Performed By: #### C MP, LIPID, TSH, T7, BNP #### [facility] [address] [place] [address] Dr. Jc Norris CAST NONE SEEN Normal NONE SEEN The [facility] Comment on above: Performed By: #### C MP, LIPID, TSH, T7, BNP #### [facility] [address] [place] [address] Dr. Jc Norris Crystals LM Nom (Urine sed) NONE SEEN Normal NONE SEEN The [facility] Comment on above: Performed By: #### C MP, LIPID, TSH, T7, BNP #### [facility] [address] [place] [address] Dr. Jc Norris Epithelial cells LM Ql (Urine sed) FEW Abnormal NONE SEEN /RARE [facility] Comment on above: Performed By: #### C MP, LIPID, TSH, T7, BNP #### [facility] [address] [address] [address] Jc Norris MUCOUS TRACE Abnormal NONE SEEN The [facility] Comment on above: Performed By: #### C MP, LIPID, TSH, T7, BNP #### [facility] [address] [address] [address] Jc Norris RBC 50-75 Abnormal 0-2 [facility] Comment on above: Performed By: #### C MP, LIPID, TSH, T7, BNP #### [facility] [address] [address] [address] Jc Norris WBC 75-100 Abnormal NONE SEEN The [facility] Comment on above: Performed By: #### C MP, LIPID, TSH, T7, BNP #### [facility] [address] [address] [address] Jc Norris MRI LSPINE WO CONon [...] NILDA HANDLEY Date: 2022-03-07 06:17 Normal [facility] CARDIAC KERI 3-6on 2 CK [Catalytic activity/Vol] 64 U/L Normal 26-192 [facility] Comment on above: Performed By: #### C MP, LIPID, TSH, T7, BNP #### [facility] [address] [place] [address] Dr. Jc Norris CK.MB [Mass/Vol] 0.81 ng/mL Normal <=3.[address] [facility] Comment on above: Performed By: #### C MP, LIPID, TSH, T7, BNP #### [facility] [address] [place] [address] Dr. Jc Norris HSTROP 4.3 pg/mL Normal 4.0-51.3 [facility] Comment on above: Result Comment: CUT- OFF POINTS HAVE BEEN ESTABLISHED BASED ON THE FOURTH UNIVERSAL DEFINITIONS OF MYOCARDIAL INFARCTION. THE UPPER REFERENCE LIMIT (URL) OF TROPONIN, DEFINED THE 99TH PERCENTILE OF cTnI DISTRIBUTION IN A REFERENCE POPULATION, HAS BEEN CONFIRMED THE DECISION THRESHOLD FOR MN DIAGNOSIS. Performed By: #### C MP, LIPID, TSH, T7, BNP #### [facility] [address] [place] [address] Dr. Jc Norris CARDIAC KERI ADMITon 022 CK [Catalytic activity/Vol] 80 U/L Normal 26-192 [facility] Comment on above: Performed By: #### C BC #### [facility] [address] [place] [address] Dr. Jc Norris CK.MB [Mass/Vol] 0.89 ng/mL Normal <=3.[address] [facility] Comment on above: Performed By: #### C BC #### [facility] [address] [place] [address] Dr. Jc Norris HSTROP 4.3 pg/mL Normal 4.0-51.3 [facility] Comment on above: Result Comment: CUT- OFF POINTS HAVE BEEN ESTABLISHED BASED ON THE FOURTH UNIVERSAL DEFINITIONS OF MYOCARDIAL INFARCTION. THE UPPER REFERENCE LIMIT (URL) OF TROPONIN, DEFINED THE 99TH PERCENTILE OF cTnI DISTRIBUTION IN A REFERENCE POPULATION, HAS BEEN CONFIRMED THE DECISION THRESHOLD FOR MN DIAGNOSIS. Performed By: #### C BC #### [facility] [address] [place] [address] Dr. Jc Norris ANITHA 21 ng/mL Normal 9-82 [facility] Comment on above: Performed By: #### C BC #### [facility] [address] [place] [address] Dr. Jc Norris CBC AUTO DIFFon 12-26-2021 BASO # 0.1 103/ul Normal 0.0-0.1 [facility] Comment on above: Performed By: #### C BC #### [facility] [address] [place] [address] Dr. Jc Norris Basophils/100 WBC (Bld) 0.5 % Normal 0.2-2.0 [facility] Comment on above: Performed By: #### C BC #### [facility] [address] [place] [address] Dr. Jc Norris EO # 0.3 103/ul Normal 0.0-0.7 [facility] Comment on above: Performed By: #### C BC #### [facility] [address] [place] [address] Dr. Jc Norris Eosinophils/100 WBC (Bld) 2.9 % Normal 0.9-7.0 [facility] Comment on above: Performed By: #### C BC #### [facility] [address] [place] [address] Dr. Jc Norris Erythrocyte distribution width (RBC) [Ratio] 12.7 % Normal 11.0-15.0 [facility] Comment on above: Performed By: #### C BC #### [facility] [address] [place] [address] Dr. Jc Norris Hematocrit (Bld) [Volume fraction] 40.1 % Normal 36.0-48.0 [facility] Comment on above: Performed By: #### C BC #### [facility] [address] [place] [address] Dr. Jc Norris Hemoglobin (Bld) [Mass/Vol] 13.4 g/dL Normal 12.0-16.0 [facility] Comment on above: Performed By: #### C BC #### [facility] [address] [place] [address] Dr. Jc Norris IG # 0.03 10e3/ul Normal 0.00-0.03 [facility] Comment on above: Performed By: #### C BC #### [facility] [address] [place] [address] Dr. Jc Norris IG % 0.3 % Normal 0.0-0.5 [facility] Comment on above: Performed By: #### C BC #### [facility] [address] [place] [address] Dr. Jc Norris LYMPH # 3.4 103/ul Normal 1.2-3.8 [facility] Comment on above: Performed By: #### C BC #### [facility] [address] [place] [address] Dr. Jc Norris Lymphocytes/100 WBC (Bld) 35.9 % Normal 20.5-60.0 [facility] Comment on above: Performed By: #### C BC #### [facility] [address] [place] [address] Dr. Jc Norris MANUAL DIFF REQ NO Normal [facility] Comment on above: Performed By: #### C BC #### [facility] [address] [place] [address] Dr. Jc Norris MCH (RBC) [Entitic mass] 28.8 pg Normal 26.7-34.0 [facility] Comment on above: Performed By: #### C BC #### [facility] [address] [place] [address] Dr. Jc Norris MCHC (RBC) [Mass/Vol] 33.4 g/dL Normal 29.9-35.2 [facility] Comment on above: Performed By: #### C BC #### [facility] [address] [place] [address] Dr. Jc Norris MCV (RBC) [Entitic vol] 86.1 fL Normal 81.0-99.0 [facility] Comment on above: Performed By: #### C BC #### [facility] [address] [place] [address] Dr. Jc Norris MONO # 0.9 103/ul Critically high 0.3-0.8 [facility] Comment on above: Performed By: #### C BC #### [facility] [address] [address] [address] Jc Norris Monocytes/100 WBC (Bld) 9.1 % Normal 1.7-12.0 [facility] Comment on above: Performed By: #### C BC #### [facility] [address] [address] [address] Jc Norris NEUT # 4.8 103/ul Normal 1.4-6.5 [facility] Comment on above: Performed By: #### C BC #### [facility] [address] [place] [address] Dr. Jc Norris Neutrophils/100 WBC (Bld) 51.3 % Normal 43.0-75.0 [facility] Comment on above: Performed By: #### C BC #### [facility] [address] [place] [address] Dr. Jc Norris Platelet mean volume (Bld) [Entitic vol] 10.9 fL Normal 9.5-13.5 [facility] Comment on above: Performed By: #### C BC #### [facility] [address] [place] [address] Dr. Jc Norris PLT 256 103/ul Normal 150-450 [facility] Comment on above: Performed By: #### C BC #### [facility] [address] [place] [address] Dr. Jc Norris RBC 4.66 106/ul Normal 4.20-5.40 [facility] Comment on above: Performed By: #### C BC #### [facility] [address] [place] [address] Dr. Jc Norris WBC 9.4 103/ul Normal 4.0-11.0 [facility] Comment on above: Performed By: #### C BC #### [facility] [address] [place] [address] Dr. Jc Norris D-DIMERon 12-26-2021 D-DIMER 0.22 mg/L FEU Normal <=0.59 [facility] Comment on above: Performed By: #### C BC #### [facility] [address] [place] [address] Dr. Jc Norris D-DIMER COMMENTS SEE BELOW Normal [facility] Comment on above: Result Comment: Incr [...] hospitalization. Performed By: #### C BC #### [facility] [address] [place] [address] Dr. Jc Norris PROF CHEM 8 (BAS METB)on Anion gap [Moles/Vol] 8.7 mmol/L Normal [facility] Comment on above: Performed By: #### C BC #### [facility] [address] [place] [address] Dr. Jc Norris Calcium [Mass/Vol] 9.2 mg/dL Normal 8.5-10.1 [facility] Comment on above: Performed By: #### C BC #### [facility] [address] [place] [address] Dr. Jc Norris Chloride [Moles/Vol] 105 mmol/L Normal 98-107 [facility] Comment on above: Performed By: #### C BC #### [facility] [address] [place] [address] Dr. Jc Norris CO2 [Moles/Vol] 27.9 mmol/L Normal 21.0-32.[address] [facility] Comment on above: Performed By: #### C BC #### [facility] [address] [place] [address] Dr. Jc Norris Creatinine [Mass/Vol] 0.67 mg/dL Normal 0.55-1.02 [facility] Comment on above: Performed By: #### C BC #### [facility] [address] [place] [address] Dr. Jc Norris EGFR-AF NICARAGUAN >60 Normal >=[address] [facility] Comment on above: Performed By: #### C BC #### [facility] [address] [address] [address] Jc Norris EGFR-NON AF NICARAGUAN >60 Normal >=60 [facility] Comment on above: Performed By: #### C BC #### [facility] [address] [address] [address] Jc Norris Glucose [Mass/Vol] 86 mg/dL Normal 74-106 [facility] Comment on above: Performed By: #### C BC #### [facility] [address] [address] [address] Jc Norris Potassium [Moles/Vol] 3.6 mmol/L Normal 3.5-5.1 [facility] Comment on above: Performed By: #### C BC #### [facility] [address] [address] [address] Jc Norris Sodium [Moles/Vol] 138 mmol/L Normal 136-145 [facility] Comment on above: Performed By: #### C BC #### [facility] [address] [address] [address] Jc Norris Urea nitrogen [Mass/Vol] 11.0 mg/dL Normal 7.0-18.0 [facility] Comment on above: Performed By: #### C BC #### [facility] [address] [place] [address] Dr. Jc Norris Urea nitrogen/Creatinine [Mass ratio] 16.4 mg/mg Normal [facility] Comment on above: Performed By: #### C BC #### [facility] [address] [address] [address] Jc Norris XR CHEST 2 Von [...] MONTELONGO Date: 2021-12-25 23:54 Normal [facility] ECHOCARDIO M/2D COMPLETEon 1 ECHOCARDIO M/2D COMPLETE Patient: MARIANGEL CORTES Exam Date: 12/06/2021 : 1995 Gender:F Ordering : DR LONA GOMEZ . Admission #: [id number] Family : Order #: [id number] CLICK HERE TO VIEW EXAM ECHOCARDIOGRAM REPORT [...] Jadyn Wong M.D. on 12/11/2021 at 15:55 [facility] 11-24-2021 Natriuretic peptide B (Bld) [Mass/Vol] 7.0 pg/mL Normal <=450.0 [facility] Comment on above: Performed By: #### C MP, LIPID, TSH, T7, BNP #### [facility] [address] [place], [place] [address] Dr. Jc Norris CBC AUTO DIFFon 11-24-2021 BASO # 0.0 103/ul Normal 0.0-0.1 [facility] Comment on above: Performed By: #### C BC ####[facility] [address] [address]Dr. Jc Norris Basophils/100 WBC (Bld) 0.3 % Normal 0.2-2.0 [facility] Comment on above: Performed By: #### C BC ####[facility] [address] [address]DrEric Norris EO # 0.1 103/ul Normal 0.0-0.7 [facility] Comment on above: Performed By: #### C BC ####[facility] [address] [address]DrEric Norris Eosinophils/100 WBC (Bld) 2.1 % Normal 0.9-7.0 [facility] Comment on above: Performed By: #### C BC ####[facility] [address] [address]DrEric Norris Erythrocyte distribution width (RBC) [Ratio] 12.9 % Normal 11.0-15.0 [facility] Comment on above: Performed By: #### C BC ####[facility] [address] [address]DrEric Norris Hematocrit (Bld) [Volume fraction] 42.3 % Normal 36.0-48.0 [facility] Comment on above: Performed By: #### C BC ####[facility] [address] [place], [place] [address]DrEric Norris Hemoglobin (Bld) [Mass/Vol] 13.6 g/dL Normal 12.0-16.0 [facility] Comment on above: Performed By: #### C BC ####[facility] [address] [id number]. Kathleenkendall Jr IG # 0.03 10e3/ul Normal 0.00-0.03 [facility] Comment on above: Performed By: #### C BC ####[facility] [address] [id number][address] Jc Norris IG % 0.5 % Normal 0.0-0.5 [facility] Comment on above: Performed By: #### C BC ####[facility] [address] [id number][address] Jc Norris LYMPH # 1.7 103/ul Normal 1.2-3.8 [facility] Comment on above: Performed By: #### C BC ####[facility] [address] [address]Dr. Jc Norris Lymphocytes/100 WBC (Bld) 29.9 % Normal 20.5-60.0 [facility] Comment on above: Performed By: #### C BC ####[facility] [address] [id number][address] Jc Norris MANUAL DIFF REQ NO Normal [facility] Comment on above: Performed By: #### C BC ####[facility] [address] [id number][address] Jc Norris MCH (RBC) [Entitic mass] 28.7 pg Normal 26.7-34.0 [facility] Comment on above: Performed By: #### C BC ####[facility] [address] [id number]. Jc Jr MCHC (RBC) [Mass/Vol] 32.2 g/dL Normal 29.9-35.2 [facility] Comment on above: Performed By: #### C BC ####[facility] [address] [id number] Jc Norris MCV (RBC) [Entitic vol] 89.2 fL Normal 81.0-99.0 [facility] Comment on above: Performed By: #### C BC ####[facility] [address] [id number][address] Jc Norris MONO # 0.4 103/ul Normal 0.3-0.8 [facility] Comment on above: Performed By: #### C BC ####[facility] [address] [id number][address] Jc Norris Monocytes/100 WBC (Bld) 7.4 % Normal 1.7-12.0 [facility] Comment on above: Performed By: #### C BC ####[facility] [address] [id number][address] Jc Norris NEUT # 3.5 103/ul Normal 1.4-6.5 [facility] Comment on above: Performed By: #### C BC ####[facility] [address] [address]Dr. Jc Norris Neutrophils/100 WBC (Bld) 59.8 % Normal 43.0-75.0 [facility] Comment on above: Performed By: #### C BC ####[facility] [address] [id number][address] Jc Norris Platelet mean volume (Bld) [Entitic vol] 10.3 fL Normal 9.5-13.5 [facility] Comment on above: Performed By: #### C BC ####[facility] [address] [id number]. Jc Norris PLT 241 103/ul Normal 150-450 [facility] Comment on above: Performed By: #### C BC ####[facility] [address] [id number]. Jc Norris RBC 4.74 106/ul Normal 4.20-5.40 [facility] Comment on above: Performed By: #### C BC ####[facility] [address] [id number]. Jc Norris WBC 5.8 103/ul Normal 4.0-11.0 [facility] Comment on above: Performed By: #### C BC ####[facility] [address] [address]DrEric Norris FREE THYROXINE INDEX T7on FTI 2.00 Normal 1.30-4.50 [facility] Comment on above: Performed By: #### C MP, LIPID, TSH, T7, BNP #### [facility] [address] [address] [address] Jc Norris T3U 29.0 % Critically low 30.0-39.0 [facility] Comment on above: Performed By: #### C MP, LIPID, TSH, T7, BNP #### [facility] [address] [address] [address] Jc Norris T4 [Mass/Vol] 6.90 ug/dL Normal 4.80-13.90 [facility] Comment on above: Performed By: #### C MP, LIPID, TSH, T7, BNP #### [facility] [address] [address] [address] Jc Norris GLYCOHEMOGLOBIN A1Con 2021 ADA RECOMMENDATION SEE BELOW Normal [facility] Comment on above: Result Comment: ADA RECOMMENDED LIMIT 4.0 - 6.0 ADA THERAPEUTIC TARGET < 7.0 ACTION SUGGESTED > 7.0 Performed By: #### A 1C ####[facility] [address] [address]DrEric Norris Glucose [Mass/Vol] 103 mg/dL Normal [facility] Comment on above: Performed By: #### A 1C ####[facility] [address] [address]DrEric Norris HbA1c (Bld) [Mass fraction] 5.2 % Normal 4.5-6.2 [facility] Comment on above: Performed By: #### A 1C ####[facility] [address] [address]Dr. Jc Norris IRONon 11-24-2021 Iron [Mass/Vol] 45.0 ug/dL Critically low 50.0-170.0 [facility] Comment on above: Performed By: #### I KINA ####[facility] [address] [place], [place] [address]SfDr. Jc Norris LIPID PROFILEon 11-24-2021 CHOL-HDL RATIO NORM SEE BELOW Normal [facility] Comment on above: Result Comment: 3.3 - 4.4 LOW RISK 4.4 - 7.1 AVERAGE RISK 7.1 - 11.0 MODERATE RISK >11.0 HIGH RISK Performed By: #### C MP, LIPID, TSH, T7, BNP #### [facility] [address] [address] [address] Jc Norris Cholesterol [Mass/Vol] 169 mg/dL Normal <=200 [facility] Comment on above: Performed By: #### C MP, LIPID, TSH, T7, BNP #### [facility] [address] [address] [address] Jc Norris Cholesterol in HDL [Mass/Vol] 44 mg/dL Normal 40-60 [facility] Comment on above: Performed By: #### C MP, LIPID, TSH, T7, BNP #### [facility] [address] [address] [address] Jc Norris Cholesterol in LDL [Mass/Vol] 106.2 mg/dL Normal [facility] Comment on above: Performed By: #### C MP, LIPID, TSH, T7, BNP #### [facility] [address] [address] [address] Jc Norris Cholesterol.total/Chol esterol in HDL [Mass ratio] 3.8 {ratio} Normal [facility] Comment on above: Performed By: #### C MP, LIPID, TSH, T7, BNP #### [facility] [facility] [address] [address] [address] Jc Norris HDL NORMAL > or = 60 mg/dl - LO W CARDIOVASCULAR RISK <40 mg/dl - HIGH CARDIOVASCULAR RISK Normal [facility] Comment on above: Performed By: #### C MP, LIPID, TSH, T7, BNP #### [facility] [address] [address] [address] Jc Norris LDL CALC NORMAL SEE BELOW Normal [facility] Comment on above: Result Comment: <100 mg/dl OPTIMAL 100 - 129 mg/dl NEAR OR ABOVE OPTIMAL 130 - 159 mg/dl BORDERLINE HIGH 160 - 189 mg/dl HIGH >190 mg/dl VERY HIGH Performed By: #### C MP, LIPID, TSH, T7, BNP #### [facility] [address] [address] [address] Jc Norris Triglyceride [Mass/Vol] 94 mg/dL Normal <=150 [facility] Comment on above: Performed By: #### C MP, LIPID, TSH, T7, BNP #### [facility] [address] [address] [address] Jc Norris VLDL CALC 18.8 mg/dL Normal [facility] Comment on above: Performed By: #### C MP, LIPID, TSH, T7, BNP #### [facility] [address] [address] [address] Jc Norris PROF 14(COMP METB)on 022 Albumin [Mass/Vol] 3.8 g/dL Normal 3.4-5.0 [facility] Comment on above: Performed By: #### C MP, LIPID, TSH, T7, BNP #### [facility] [address] [address] [address] Jc oNrris Albumin/Globulin [Mass ratio] 1.1 {ratio} Normal [facility] Comment on above: Performed By: #### C MP, LIPID, TSH, T7, BNP #### [facility] [address] [place] [address] Dr. Jc Norris ALP [Catalytic activity/Vol] 109 U/L Normal 46-116 [facility] Comment on above: Performed By: #### C MP, LIPID, TSH, T7, BNP #### [facility] [address] [place] [address] Dr. Jc Norris ALT [Catalytic activity/Vol] 20 U/L Normal 14-59 [facility] Comment on above: Performed By: #### C MP, LIPID, TSH, T7, BNP #### [facility] [address] [address] [address] Jc Norris Anion gap [Moles/Vol] 8.3 mmol/L Normal [facility] Comment on above: Performed By: #### C MP, LIPID, TSH, T7, BNP #### [facility] [address] [address] [address] Jc Norris AST [Catalytic activity/Vol] 12 U/L Critically low 15-37 [facility] Comment on above: Performed By: #### C MP, LIPID, TSH, T7, BNP #### [facility] [address] [address] [address] Jc Norris Bilirubin [Mass/Vol] 0.3 mg/dL Normal 0.2-1.0 [facility] Comment on above: Performed By: #### C MP, LIPID, TSH, T7, BNP #### [facility] [address] [place] [address] Dr. Jc Norris Calcium [Mass/Vol] 8.9 mg/dL Normal 8.5-10.1 [facility] Comment on above: Performed By: #### C MP, LIPID, TSH, T7, BNP #### [facility] [address] [place] [address] Dr. Jc Norris Chloride [Moles/Vol] 105 mmol/L Normal 98-107 [facility] Comment on above: Performed By: #### C MP, LIPID, TSH, T7, BNP #### [facility] [address] [place] [address] Dr. Jc Norris CO2 [Moles/Vol] 29.8 mmol/L Normal 21.0-32.[address] [facility] Comment on above: Performed By: #### C MP, LIPID, TSH, T7, BNP #### [facility] [address] [place] [address] Dr. Jc Norris Creatinine [Mass/Vol] 0.67 mg/dL Normal 0.55-1.02 [facility] Comment on above: Performed By: #### C MP, LIPID, TSH, T7, BNP #### [facility] [address] [place] [address] Dr. Jc Norris EGFR-AF NICARAGUAN >60 Normal >=[address] [facility] Comment on above: Performed By: #### C MP, LIPID, TSH, T7, BNP #### [facility] [address] [place] [address] Dr. Jc Norris EGFR-NON AF NICARAGUAN >60 Normal >=60 [facility] Comment on above: Performed By: #### C MP, LIPID, TSH, T7, BNP #### [facility] [address] [address] [address] Jc Norris Globulin (S) [Mass/Vol] 3.5 g/dL Normal [facility] Comment on above: Performed By: #### C MP, LIPID, TSH, T7, BNP #### [facility] [address] [address] [address] Jc Norris Glucose [Mass/Vol] 107 mg/dL Critically high 74-106 [facility] Comment on above: Performed By: #### C MP, LIPID, TSH, T7, BNP #### [facility] [address] [place] [address] Dr. Jc Norris Potassium [Moles/Vol] 4.1 mmol/L Normal 3.5-5.1 [facility] Comment on above: Performed By: #### C MP, LIPID, TSH, T7, BNP #### [facility] [address] [place] [address] Dr. Jc Norris Protein [Mass/Vol] 7.3 g/dL Normal 6.4-8.2 [facility] Comment on above: Performed By: #### C MP, LIPID, TSH, T7, BNP #### [facility] [address] [place] [address] Dr. Jc Norris Sodium [Moles/Vol] 139 mmol/L Normal 136-145 [facility] Comment on above: Performed By: #### C MP, LIPID, TSH, T7, BNP #### [facility] [address] [place] [address] Dr. Jc Norris Urea nitrogen [Mass/Vol] 11.0 mg/dL Normal 7.0-18.0 [facility] Comment on above: Performed By: #### C MP, LIPID, TSH, T7, BNP #### [facility] [address] [place] [address] Dr. Jc Norris Urea nitrogen/Creatinine [Mass ratio] 16.4 mg/mg Normal [facility] Comment on above: Performed By: #### C MP, LIPID, TSH, T7, BNP #### [facility] [address] [place] [address] Dr. Jc Norris TSHon 11-24-2021 TSH 1.465 uIU/mL Normal 0.358-3.740 [facility] Comment on above: Performed By: #### C MP, LIPID, TSH, T7, BNP #### [facility] [address] [place] [address] Dr. Jc Norris T4 [facility]on 10-31-2021 T4 [Mass/Vol] 5.8 ug/dL Normal 4.5-12.0 [facility] Comment on above: Performed By: #### C BC #### [facility] [address] [place] [address] Dr. Jc Norris CBC AUTO DIFFon 10-30-2021 BASO # 0.1 103/ul Normal 0.0-0.1 [facility] Comment on above: Performed By: #### C BC #### [facility] [address] [place] [address] Dr. Jc Norris Basophils/100 WBC (Bld) 0.4 % Normal 0.2-2.0 [facility] Comment on above: Performed By: #### C BC #### [facility] [address] [place] [address] Dr. Jc Norris EO # 0.2 103/ul Normal 0.0-0.7 [facility] Comment on above: Performed By: #### C BC #### [facility] [address] [place] [address] Dr. Jc Norris Eosinophils/100 WBC (Bld) 1.4 % Normal 0.9-7.0 [facility] Comment on above: Performed By: #### C BC #### [facility] [address] [place] [address] Dr. Jc Norris Erythrocyte distribution width (RBC) [Ratio] 13.0 % Normal 11.0-15.0 [facility] Comment on above: Performed By: #### C BC #### [facility] [address] [address] [address] Jc Norris Hematocrit (Bld) [Volume fraction] 42.4 % Normal 36.0-48.0 [facility] Comment on above: Performed By: #### C BC #### [facility] [address] [place] [address] Dr. Jc Norris Hemoglobin (Bld) [Mass/Vol] 13.2 g/dL Normal 12.0-16.0 [facility] Comment on above: Performed By: #### C BC #### [facility] [address] [place] [address] Dr. Jc Norris IG # 0.18 10e3/ul Critically high 0.00-0.03 [facility] Comment on above: Performed By: #### C BC #### [facility] [address] [place] [address] Dr. Jc Norris IG % 1.4 % Critically high 0.0-0.5 [facility] Comment on above: Performed By: #### C BC #### [facility] [address] [place] [address] Dr. Jc Norris LYMPH # 4.2 103/ul Critically high 1.2-3.8 [facility] Comment on above: Performed By: #### C BC #### [facility] [address] [place] [address] Dr. Jc Norris Lymphocytes/100 WBC (Bld) 31.5 % Normal 20.5-60.0 [facility] Comment on above: Performed By: #### C BC #### [facility] [address] [place] [address] Dr. Jc Norris MANUAL DIFF REQ NO Normal [facility] Comment on above: Performed By: #### C BC #### [facility] [address] [place] [address] Dr. Jc Norris MCH (RBC) [Entitic mass] 27.9 pg Normal 26.7-34.0 [facility] Comment on above: Performed By: #### C BC #### [facility] [address] [address] [address] Jc Norris MCHC (RBC) [Mass/Vol] 31.1 g/dL Normal 29.9-35.2 [facility] Comment on above: Performed By: #### C BC #### [facility] [address] [address] [address] Jc Norris MCV (RBC) [Entitic vol] 89.6 fL Normal 81.0-99.0 [facility] Comment on above: Performed By: #### C BC #### [facility] [address] [address] [address] Jc Norris MONO # 1.3 103/ul Critically high 0.3-0.8 [facility] Comment on above: Performed By: #### C BC #### [facility] [address] [place] [address] Dr. Jc Norris Monocytes/100 WBC (Bld) 9.9 % Normal 1.7-12.0 [facility] Comment on above: Performed By: #### C BC #### [facility] [address] [place] [address] Dr. Jc Norris NEUT # 7.4 103/ul Critically high 1.4-6.5 [facility] Comment on above: Performed By: #### C BC #### [facility] [address] [place] [address] Dr. Jc Norris Neutrophils/100 WBC (Bld) 55.4 % Normal 43.0-75.0 [facility] Comment on above: Performed By: #### C BC #### [facility] [address] [address] [address] Jc Norris Platelet mean volume (Bld) [Entitic vol] 10.2 fL Normal 9.5-13.5 [facility] Comment on above: Performed By: #### C BC #### [facility] [address] [place] [address] Dr. Jc Norris PLT 265 103/ul Normal 150-450 [facility] Comment on above: Performed By: #### C BC #### [facility] [address] [place] [address] Dr. Jc Norris RBC 4.73 106/ul Normal 4.20-5.40 [facility] Comment on above: Performed By: #### C BC #### [facility] [address] [place] [address] Dr. Jc Norris WBC 13.3 103/ul Critically high 4.0-11.0 [facility] Comment on above: Performed By: #### C BC #### [facility] [address] [place] [address] Dr. Jc Norris FREE T3on 10-30-2021 FREE T3 2.18 pg/mlL Normal 2.18-3.98 [facility] Comment on above: Performed By: #### C MP, LIPID, TSH, T7, BNP #### [facility] [address] [place] [address] Dr. Jc Norris PROF 14(COMP METB)on 022 Albumin [Mass/Vol] 3.6 g/dL Normal 3.4-5.0 [facility] Comment on above: Performed By: #### C MP, LIPID, TSH, T7, BNP #### [facility] [address] [place] [address] Dr. Jc Norris Albumin/Globulin [Mass ratio] 1.1 {ratio} Normal [facility] Comment on above: Performed By: #### C MP, LIPID, TSH, T7, BNP #### [facility] [address] [place] [address] Dr. Jc Norris ALP [Catalytic activity/Vol] 93 U/L Normal 46-116 [facility] Comment on above: Performed By: #### C MP, LIPID, TSH, T7, BNP #### [facility] [address] [place] [address] Dr. Jc Norris ALT [Catalytic activity/Vol] 22 U/L Normal 14-59 [facility] Comment on above: Performed By: #### C MP, LIPID, TSH, T7, BNP #### [facility] [address] [place] [address] Dr. Jc Norris Anion gap [Moles/Vol] 9.4 mmol/L Normal [facility] Comment on above: Performed By: #### C MP, LIPID, TSH, T7, BNP #### [facility] [address] [address] [address] Jc Norris AST [Catalytic activity/Vol] 13 U/L Critically low 15-37 [facility] Comment on above: Performed By: #### C MP, LIPID, TSH, T7, BNP #### [facility] [address] [address] [address] Jc Norris Bilirubin [Mass/Vol] 0.3 mg/dL Normal 0.2-1.0 [facility] Comment on above: Performed By: #### C MP, LIPID, TSH, T7, BNP #### [facility] [address] [address] [address] Jc Norris Calcium [Mass/Vol] 9.0 mg/dL Normal 8.5-10.1 [facility] Comment on above: Performed By: #### C MP, LIPID, TSH, T7, BNP #### [facility] [address] [address] [address] Jc Norris Chloride [Moles/Vol] 102 mmol/L Normal 98-107 [facility] Comment on above: Performed By: #### C MP, LIPID, TSH, T7, BNP #### [facility] [address] [address] [address] Jc Norris CO2 [Moles/Vol] 32.4 mmol/L Critically high 21.0-32.0 [facility] Comment on above: Performed By: #### C MP, LIPID, TSH, T7, BNP #### [facility] [address] [address] [address] Jc Norris Creatinine [Mass/Vol] 0.67 mg/dL Normal 0.55-1.02 [facility] Comment on above: Performed By: #### C MP, LIPID, TSH, T7, BNP #### [facility] [address] [address] [address] Jc Norris EGFR-AF NICARAGUAN >60 Normal >=[address] [facility] Comment on above: Performed By: #### C MP, LIPID, TSH, T7, BNP #### [facility] [address] [place] [address] Dr. Jc Norris EGFR-NON AF NICARAGUAN >60 Normal >=60 [facility] Comment on above: Performed By: #### C MP, LIPID, TSH, T7, BNP #### [facility] [address] [place] [address] Dr. Jc Norris Globulin (S) [Mass/Vol] 3.2 g/dL Normal [facility] Comment on above: Performed By: #### C MP, LIPID, TSH, T7, BNP #### [facility] [address] [place] [address] Dr. Jc Norris Glucose [Mass/Vol] 94 mg/dL Normal 74-106 [facility] Comment on above: Performed By: #### C MP, LIPID, TSH, T7, BNP #### [facility] [address] [place] [address] Dr. Jc Norris Potassium [Moles/Vol] 3.7 mmol/L Normal 3.5-5.1 [facility] Comment on above: Performed By: #### C MP, LIPID, TSH, T7, BNP #### [facility] [address] [place] [address] Dr. Jc Norris Protein [Mass/Vol] 6.8 g/dL Normal 6.4-8.2 [facility] Comment on above: Performed By: #### C MP, LIPID, TSH, T7, BNP #### [facility] [address] [place] [address] Dr. Jc Norris Sodium [Moles/Vol] 140 mmol/L Normal 136-145 [facility] Comment on above: Performed By: #### C MP, LIPID, TSH, T7, BNP #### [facility] [address] [place] [address] Dr. Jc Norris Urea nitrogen [Mass/Vol] 16.0 mg/dL Normal 7.0-18.0 [facility] Comment on above: Performed By: #### C MP, LIPID, TSH, T7, BNP #### [facility] [address] [place], [place] [address] Dr. Jc Norris Urea nitrogen/Creatinine [Mass ratio] 23.9 mg/mg Normal [facility] Comment on above: Performed By: #### C MP, LIPID, TSH, T7, BNP #### [facility] [address] [place], [place] [address] Dr. Jc Norris TSHon 10-30-2021 TSH 2.046 uIU/mL Normal 0.358-3.740 [facility] Comment on above: Performed By: #### C MP, LIPID, TSH, T7, BNP #### [facility] [address] [place], [place] [address] Dr. Jc Norris Body fluid albumin measureme nt (mass/volume)Ordered By: Anjali Hendrix on 10-06-2021 Albumin (Body fld) [Mass/Vol] 3.9 g/dL 3.2-5.5 [facility] Cholesterol in LDL Calc [Mas s/Vol]Ordered By: Anjali Hendrix on 10-06-2021 Cholesterol in LDL [Mass/Vol] 106 mg/dL 0-100 [facility] Comment on above: LDL ATP III CLASSIFI CATION LDL less than 100 mg/dL Optimal LDL 100-129 mg/dL Near or above optimal LDL 130-159 mg/dL Borderline high LDL 160-189 mg/dL High LDL greater than 189 mg/dL Very high Cholesterol in VLDL Calc [Ma ss/Vol]Ordered By: Anjali Hendrix on 10-06-2021 Cholesterol in VLDL [Mass/Vol] 22 mg/dL [facility] Comprehensive Metabolic Empo n 10-06-2021 Albumin [Mass/Vol] 3.9 g/dL Normal 3.2-5.5 [facility] Comment on above: Performed By: #### E BS LIPID, EBS A1C, EBS CMP #### [facility] [address] [place] [address] [place] ALT [Catalytic activity/Vol] 19 U/L Normal 10-60 [facility] Comment on above: Performed By: #### E BS LIPID, EBS A1C, EBS CMP #### [facility] [address] Estimated GFR ( Amira > 60 Normal [facility] Comment on above: Result Comment: GFR estimated reference range: According to KDOQI guidelines, <60 ml/min/1.73m2 is sufficient to diagnose a patient with chronic kidney disease. Performed By: #### E BS LIPID, EBS A1C, EBS CMP #### [facility] [address] Estimated GFR (Non- Am > 60 [facility] Comment on above: Performed By: #### E BS LIPID, EBS A1C, EBS CMP #### [facility] [address] Comprehensive Metabolic EmpO rdered By: Anjali Hendrix on 10-06-2021 Albumin/Globulin [Mass ratio] 1.4 {ratio} [facility] Comment on above: Performed By: #### E BS LIPID, EBS A1C, EBS CMP #### [facility] [address] ALP [Catalytic activity/Vol] 76 U/L Normal 32-92 [facility] Comment on above: Performed By: #### E BS LIPID, EBS A1C, EBS CMP #### [facility] [address] [place] [address] [place] AST [Catalytic activity/Vol] 22 U/L Normal 10-42 [facility] Comment on above: Performed By: #### E BS LIPID, EBS A1C, EBS CMP #### [facility] [address] [place] [address] [place] Bilirubin [Mass/Vol] 0.4 mg/dL Normal 0.3-1.2 [facility] Comment on above: Performed By: #### E BS LIPID, EBS A1C, EBS CMP #### [facility] [address] [place] [address] [place] Calcium [Mass/Vol] 9.4 mg/dL Normal 8.2-10.2 [facility] Comment on above: Performed By: #### E BS LIPID, EBS A1C, EBS CMP #### [facility] [address] [place] [address] [place] Chloride [Moles/Vol] 101 mmol/L Normal 95-114 [facility] Comment on above: Performed By: #### E BS LIPID, EBS A1C, EBS CMP #### [facility] [address] [place] [address] CO2 [Moles/Vol] 23.4 mmol/L Normal 22.0-30.0 [facility] Comment on above: Performed By: #### E BS LIPID, EBS A1C, EBS CMP #### [address] Creatinine [Mass/Vol] 0.66 mg/dL Normal 0.44-1.03 [facility] Comment on above: Performed By: #### E BS LIPID, EBS A1C, EBS CMP #### [address] Globulin (S) [Mass/Vol] 2.7 g/dL Normal [facility] Comment on above: Performed By: #### E BS LIPID, EBS A1C, EBS CMP #### [address] Glucose [Mass/Vol] 109 mg/dL High 70-100 [facility] Comment on above: Result Comment: ADA recommended reference range Performed By: #### E BS LIPID, EBS A1C, EBS CMP #### [address] ADA recommended refe rence range Potassium [Moles/Vol] 3.9 mmol/L Normal 3.5-5.1 [facility] Comment on above: Performed By: #### E BS LIPID, EBS A1C, EBS CMP #### [address] Protein [Mass/Vol] 6.6 g/dL Normal 6.1-7.9 [facility] Comment on above: Performed By: #### E BS LIPID, EBS A1C, EBS CMP #### [address] Sodium [Moles/Vol] 135 mmol/L Low 136-146 [facility] Comment on above: Performed By: #### E BS LIPID, EBS A1C, EBS CMP #### [facility] [address] Urea nitrogen [Mass/Vol] 11 mg/dL Normal 9-23 [facility] Comment on above: Performed By: #### E BS LIPID, EBS A1C, EBS CMP #### [facility] [address] EBS A1C with Estimated Ave G luon 10-06-2021 Glucose [Mass/Vol] 114 mg/dL Normal [facility] Comment on above: Result Comment: PERF ORMED BY: [facility] [address] [place] [address] PATHOLOGIST [employer] MARLEY CANO M.D. Performed By: #### E BS LIPID, EBS A1C, EBS CMP #### [facility] [address] EBS A1C with Estimated Ave G luOrdered By: Anjali Hendrix on 10-06-2021 HbA1c (Bld) [Mass fraction] 5.6 % Normal 4.3-5.6 [facility] Comment on above: Result Comment: Incr eased risk for diabetes: 5.7 - 6.4 diabetes: >6.4 glycemic control for adults with diabetes: <7.0 Performed By: #### E BS LIPID, EBS A1C, EBS CMP #### [facility] [address] Increased risk for d iabetes: 5.7 - 6.4 diabetes: >6.4 glycemic control for adults with diabetes: <7.0 Estimated glomerular filtrat ion rate (GFR) non- AmericanOrdered By: Anjali Hendrix on 10-06-2021 GFR/1.73 sq M.predicted among non-blacks MDRD (S/P/Bld) [Vol rate/Area] > 60 mL/Min [facility] Glucose mean value [Mass/vol ume] in Blood Estimated from glycated hemoglobinOrdered By: Anjali Hendrix on 10-06-2021 Average glucose Estimated from glycated hemoglobin (Bld) [Mass/Vol] 114 mg/dL [facility] Lipid ProfileOrdered By: Jayshree Hendrix on 10-06-2021 Cholesterol [Mass/Vol] 179 mg/dL Normal 140-200 [facility] Comment on above: Result Comment: Chol less than 200 mg/dl low risk Chol 201-239 mg/dl borderline risk Chol 240 mg/dl and greater high risk Performed By: #### E BS LIPID, EBS A1C, EBS CMP #### [facility] [address] Chol less than 200 m g/dl low risk Chol 201-239 mg/dl borderline risk Chol 240 mg/dl and greater high risk Cholesterol in HDL [Mass/Vol] 50 mg/dL Normal 35-85 [facility] Comment on above: Result Comment: HDL CHOL ATP-III CLASSIFICATION Cardiovascular Risk HDL > or equal to 60 mg/dL LOW HDL < 40 mg/dL HIGH Performed By: #### E BS LIPID, EBS A1C, EBS CMP #### [facility] [address] HDL CHOL ATP-III CLA SSIFICATION Cardiovascular Risk HDL > or equal to 60 mg/dL LOW HDL < 40 mg/dL HIGH Cholesterol.total/Chol esterol in HDL [Mass ratio] 3.6 {ratio} Normal <5.0 [facility] Comment on above: Result Comment: PERF ORMED BY: [place] [address] PATHOLOGIST [employer] MARLEY CANO M.D. Performed By: #### E BS LIPID, EBS A1C, EBS CMP #### [facility] [address] Lipid Profileon 10-06-2021 LDL Cholesterol,Calculated 106 mg/dL High 0-100 [facility] Comment on above: Result Comment: LDL ATP III CLASSIFICATION LDL less than 100 mg/dL Optimal LDL 100-129 mg/dL Near or above optimal LDL 130-159 mg/dL Borderline high LDL 160-189 mg/dL High LDL greater than 189 mg/dL Very high Performed By: #### E BS LIPID, EBS A1C, EBS CMP #### [facility] [address] [place] [address] [place] Triglyceride w/Reflex 113 mg/dL Normal 35-149 [facility] Comment on above: Result Comment: TRIG ATP III CLASSIFICATION TRIG less than 150 mg/dL Normal TRIG 150-199 mg/dL Borderline high TRIG 200-500 mg/dL High TRIG greater than 500 mg/dL Very high Standard traceable to the Center for Disease Conrtrol and Prevention (CDC) test method. Performed By: #### E BS LIPID, EBS A1C, EBS CMP #### [facility] [address] VLDL CHOLESTEROL 22 mg/dL Normal [facility] Comment on above: Performed By: #### E BS LIPID, EBS A1C, EBS CMP #### [facility] [address] No Panel InformationOrdered By: Anjali Hendrix on 10-06-2021 Estimated GFR () > 60 mL/Min [facility] Comment on above: GFR estimated refere nce range: According to KDOQI guidelines, <60 ml/min/1.73m2 is sufficient to diagnose a patient with chronic kidney disease. Pharmacy Creatinine Clearance (Chem N/A [facility] Triglycerides Reflex 113 mg/dL 35-149 [facility] Comment on above: TRIG ATP III [...] additional P-5'-P [Catalytic activity/Vol] 19 U/L 10-60 [facility] HCG,Urineon 04-25-2021 Beta HCG ( test) Ql (U) Negative Normal [facility] Comment on above: Result Comment: PERF ORMED BY: [facility] [address] [place] [address] PATHOLOGIST CHIEF ELECTRICIAN MARLEY CANO M.D. Performed By: #### U HCG #### [facility] [address] HCG,Urineon 03-16-2021 Beta HCG ( test) Ql (U) Negative Normal [facility] Comment on above: Result Comment: PERF ORMED BY: [facility] [address] [place] [address] PATHOLOGIST CHIEF ELECTRICIAN MARLEY CANO M.D. 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 Testing for SARS-CoV-2 by RT-PCR This test was developed and its performance characteristics determined by [employer] ([employer]) and validated at the [facility]. This test has not been FDA [...] is terminated or revoked sooner. PERFORMED BY: [facility] [address] [place] [address] PATHOLOGIST CHIEF ELECTRICIAN MARLEY CANO M.D. Performed By: #### C OVID 19 [facility] #### [facility] [address] [place] [address] [facility] Social History Date Type Detail Facility Start: 04-25-2021 Tobacco smoking stat us HIIS Ex-smoker (finding) [facility] Start: 1995 Sex Assigned At Female F [facility] Sex Assigned At [facility] Other Vital Signs Date Time Vital Sign Value Performing Clinician Facility 10-23-2022 09:00-0400 Body height 170.18 cm Al Ball Other [facility] Other 10-23-2022 09:00-0400 Body mass index (BMI) [Ratio] 33.36 kg/m2 Al Ball Other [facility] Other 10-23-2022 09:00-0400 Body weight 96.62 kg Al Ball Other [facility] Other 10-23-2022 09:00-0400 Diastolic blood pressure 68 mm[Hg] Al Ball Other [facility] Other 10-23-2022 09:00-0400 Systolic blood pressure 105 mm[Hg] Al Ball Other [facility] Other 05-05-2021 11:45-0400 Body height 170.18 cm Eric Diaz Other [facility] Other 05-05-2021 11:45-0400 Body mass index (BMI) [Ratio] 34.14 kg/m2 Eric Diaz Other [facility] Other 05-05-2021 11:45-0400 Body weight 98.88 kg Eric Diaz Other [facility] Other 02-01-2021 15:30-0500 Body height 170.18 cm Eric Diaz Other [facility] Other 02-01-2021 15:30-0500 Body mass index (BMI) [Ratio] 31.48 kg/m2 Eric Diaz Other [facility] Other 02-01-2021 15:30-0500 Body weight 91.17 kg Eric Diaz Other [facility] Other Clinical Note 08-26-2023 Note Date & Type Note Facility 08-26-2023 Note ED Patient Education Note Neurology General Headache Without Cause A headache is pain or discomfort felt around the head or neck area. There are many causes and types of headaches. A few common types include: ? Tension headaches. ? Migraine headaches. ? Cluster headaches. ? Chronic daily headaches. Sometimes, the specific cause of a headache may not be found. Follow these instructions at home: Watch your condition for any changes. Let your health care provider know about them. Take these steps to help with your condition: Managing pain ? Take [id number] and prescription medicines only as told by your health care provider. Treatment may include medicines for pain that are taken by mouth or applied to the skin. ? Lie down in a dark, quiet room when you have a headache. ? Keep lights dim if bright lights bother you or make your headaches worse. ? If directed, put ice on your head and neck area: ? Put ice in a plastic bag. ? Place a towel between your skin and the bag. ? Leave the ice on for 20 minutes, 2?3 times per day. ? Remove the ice if your skin turns bright red. This is very important. If you cannot feel pain, heat, or cold, you have a greater risk of damage to the area. ? If directed, apply heat to the affected area. Use the heat source that your health care provider recommends, such as a moist heat pack or a heating pad. ? Place a towel between your skin and the heat source. ? Leave the heat on for 20?30 minutes. ? Remove the heat if your skin turns bright red. This is especially important if you are unable to feel pain, heat, or cold. You have a greater risk of getting burned. Eating and drinking ? Eat meals on a regular schedule. ? If you drink alcohol: ? Limit how much you have to: ? 0?1 drink a day for women who are not . ? 0?2 drinks a day for men. ? Know how much alcohol is in a drink. In the [place] one drink equals one 12 oz bottle of beer (355 mL), one 5 oz glass of wine (148 mL), or one 1? oz glass of hard liquor (44 mL). ? Stop drinking caffeine, or decrease the amount of caffeine you drink. ? Drink enough fluid to keep your urine pale yellow. General instructions ? Keep a headache journal to help find out what may trigger your headaches. For example, write down: ? What you eat and drink. ? How much sleep you get. ? Any change to your diet or medicines. ? Try massage or other relaxation techniques. ? Limit stress. ? Sit up straight, and do not tense your muscles. ? Do not use any products that contain nicotine or tobacco. These products include cigarettes, chewing tobacco, and vaping devices, such as e-cigarettes. If you need help quitting, ask your health care provider. ? Exercise regularly as told by your health care provider. ? Sleep on a regular schedule. Get 7?9 hours of sleep each night, or the amount recommended by your health care provider. ? Keep all follow-up visits. This is important. Contact a health care provider if: ? Medicine does not help your symptoms. ? You have a headache that is different from your usual headache. ? You have nausea or you vomit. ? You have a fever. Get help right away if: ? Your headache: ? Becomes severe quickly. ? Gets worse after moderate to intense physical activity. ? You have any of these symptoms: ? Repeated vomiting. ? Pain or stiffness in your neck. ? Changes to your vision. ? Pain in an eye or ear. ? Problems with speech. ? Muscular weakness or loss of muscle control. ? Loss of balance or coordination. ? You feel faint or pass out. ? You have confusion. ? You have a seizure. These symptoms may represent a serious problem that is an emergency. Do not wait to see if the symptoms will go away. Get medical help right away. Call your local emergency services (911 in the [place] Do not drive yourself to the hospital. Summary ? A headache is pain or discomfort felt around the head or neck area. ? There are many causes and types of headaches. In some cases, the cause may not be found. ? Keep a headache journal to help find out what may trigger your headaches. Watch your condition for any changes. Let your health care provider know about them. ? Contact a health care provider if you have a headache that is different from the usual headache, or if your symptoms are not helped by medicine. ? Get help right away if your headache becomes severe, you vomit, you have a loss of vision, you lose your balance, or you have a seizure. This information is not intended to replace advice given to you by your health care provider. Make sure you discuss any questions you have with your health care provider. Document Revised: 07/05/2021 Document Reviewed: 07/05/2021 [employer] Patient Education ? 2022 [employer]. [facility] Evaluation note 10-23-2022 Note Date & Type [...] avoid eating prior to HS. Continue PPI [facility] Other Clinical Note 07-17-2022 Note Date & [...] by: IKE COMBS Date: 2022-07-17 17:34 [facility] Evaluation note 05-05-2021 Note Date & Type [...] on range of motion and strength exercise. [facility] Other Evaluation note 03-27-2021 Note Date & [...] of pinch strength in approximately 6 weeks, vp ancillary strength recovery at about 12 weeks, and [...] done prior to surgical procedure to limit kyra-operative risks. I have discussed the planned procedure, how and who performs the procedure, and the personnel involved. Cardiovascular, pulmonary, and other life threatening episodes can occur during surgery although there is a low risk of these happening. Surgical risks including bleeding, neurovascular injury, wound closure problems and infection were discussed. Kyra-operative risks including infection, bleeding, wound healing problems, [...] poor healing. 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 I [...] outcome. Mar, Pre-op examination (ICD-10 - Z01.818) [facility] Other Evaluation note 02-01-2021 Note Date & [...] of pinch strength in approximately 6 weeks, vp ancillary strength recovery at about 12 weeks, and [...] as documented in the electronic medical record. [facility] Other Evaluation note Note Date & Type Note Facility Evaluation note No Information [facility] Other Evaluation note Note Date & Type Note Facility Evaluation note No assessment information availa [facility] Work Phone: History general Narrative - Reported Note Date & Type Note Facility History general Narrative - Reported Type Medical History migraine headache Medical History hyperthyroidism Medical History back muscle spasms Surgical History gall bladder Surgical History tonsillectomy and adenoidectomy Surgical History ear tubes Hospitalization History childbirth [facility] Other History general Narrative - Reported Note Date & Type Note Facility History general Narrative - Reported Type Medical History GERD Medical History BOB Surgical History T/A Surgical History CTS Surgical History Cholecystectomy [facility] Other Summary Purpose Family History No Family [...] FOR VISIT (unrecogniz ed section and content) 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 PhysicalRecheck B ilateral Hands1 WEEK POST OPCONSULT DR NATALIE NARANJO CTS [facility] INFORMATION SOURCE (unrecogn ized section and content) DATE CREATED AUTHOR 10/12/2021 [facility] DATE CREATED AUTHOR AUTHOR'S ORGANIZ ATION 07/27/2022 [facility] DATE CREATED AUTHOR AUTHOR'S ORGANIZ ATION 12/27/2022 [facility] DATE CREATED AUTHOR AUTHOR'S ORGANIZ ATION 06/21/2023 [facility] d[facility] Specialists [facility] DATE CREATED AUTHOR AUTHOR'S ORGANIZ ATION 08/25/2023 [facility] DATE CREATED AUTHOR AUTHOR'S ORGANIZ ATION 08/26/2023 [facility] Care Teams (unrecognized sec tion and content) [...] BE BASED ON THE PRIMARY CLINICAL RECORDS. [employer] provides no warranty or guarantee of the accuracy or completeness of information in this document.
[2023-08-26 20:14] LABS: Basophils Percent Auto 0.4 % (0.2-2.0); Eosinophils Absolute Auto 0.2 10^3/uL (0.0-0.7); Eosinophils Percent Auto 1.8 % (0.9-7.0); Hemoglobin 13.4 g/dL (12.0-16.0); Immature Granulocytes Abs Auto 0.04 10^3/uL (0.00-0.03); Immature Granulocytes Pct Auto 0.4 % (0.0-0.5); Lymphocytes Absolute Auto 2.4 10^3/uL (1.2-3.8); Lymphocytes Percent Auto 26.3 % (20.5-60.0); Mean Corpuscular HGB Conc 32.7 g/dL (29.9-35.2); Mean Corpuscular Hemoglobin 27.9 pg (26.7-34.0); Mean Corpuscular Volume 85.2 fL (81.0-99.0); Mean Platelet Volume 10.9 fL (9.5-13.5); Monocytes Absolute Auto 0.7 10^3/uL (0.3-0.8); Monocytes Percent Auto 7.9 % (1.7-12.0); Neutrophils Absolute Auto 5.9 10^3/uL (1.4-6.5); Neutrophils Percent Auto 63.2 % (43.0-75.0); Platelet Count 234 10^3/uL (150-450); Red Blood Count 4.81 10^6/uL (4.20-5.40); White Blood Count 9.3 10^3/uL (4.0-11.0)
[2023-08-26 20:30] LABS: D Dimer 0.26 mg/L FEU (<=0.59)
[2023-08-26] MEDS: 0.9 % SODIUM CHLORIDE 1,000 ML 100 ML IV (20:30)
[2023-08-26 20:31] LABS: Alanine Aminotransferase 25 U/L (14-59); Albumin Globulin Ratio 1.1; Albumin Level 3.9 g/dL (3.4-5.0); Alkaline Phosphatase 109 U/L (46-116); Anion Gap 11.7; Aspartate Amino Transferase 17 U/L (15-37); BUN Creatinine Ratio 18.2; Bilirubin Total 0.4 mg/dL (0.2-1.0); Calcium 9.2 mg/dL (8.5-10.1); Carbon Dioxide 24.8 mmol/L (21.0-32.0); Chloride 103 mmol/L (98-107); Estimated GFR (African America >60 (>=60); Estimated GFR (Non-African Ame >60 (>=60); Globulin 3.7 g/dL; Glucose 85 mg/dL (74-106); Potassium 3.5 mmol/L (3.5-5.1); Sodium 136 mmol/L (136-145); Total Protein 7.6 g/dL (6.4-8.2)
[2023-08-26] MEDS: METOCLOPRAMIDE HCL 10 MG/2 ML VIAL IVP (20:31)
[2023-08-26] MEDS: METHYLPREDNISOLONE SOD SUCC PF 125 MG/2 ML VIAL IVP (20:31)
[2023-08-26] MEDS: AMMONIA 1 EACH AMPULE IH (20:32)
[2023-08-26 20:33] LABS: Acetaminophen <2.0 ug/mL (10.0-30.0); Ethanol 12 mg/dL; Lactate/Lactic Acid 1.1 mmol/L (0.4-2.0); Salicylate <2.8 mg/dL (<=19.9); Troponin I High Sensitivity <4.0 pg/mL (4.0-51.3)
[2023-08-26 21:38] VITALS: BP 119/76; PULSE 102; O2SAT 100
== END 2023-08-26 21:40 | disposition home or self-care (01) ==
PROVIDERS: Emergency Provider Internal Medicine; PCP Family Medicine
DX: G43.909 Migraine, unspecified, not intractable, without status migrainosus (principal); Z87.891 Personal history of nicotine dependence
CPT/HCPCS: 36415; 80053; 80179; 80307; 80320; 80329; 83605; 84484; 85025; 85378; 93005; 96374; 96375; 99285; J2765; J2919

== ENCOUNTER 2023-08-30 09:49 | Outpatient (OUT) | payer OTHER, SELFPAY ==
[2023-08-30 10:50] LABS: Basophils Percent Auto 0.3 % (0.2-2.0); Eosinophils Absolute Auto 0.2 10^3/uL (0.0-0.7); Eosinophils Percent Auto 2.4 % (0.9-7.0); Hematocrit 42.5 % (36.0-48.0); Hemoglobin 13.7 g/dL (12.0-16.0); Immature Granulocytes Abs Auto 0.06 10^3/uL (0.00-0.03); Immature Granulocytes Pct Auto 0.6 % (0.0-0.5); Lymphocytes Absolute Auto 2.5 10^3/uL (1.2-3.8); Lymphocytes Percent Auto 24.5 % (20.5-60.0); Mean Corpuscular HGB Conc 32.2 g/dL (29.9-35.2); Mean Corpuscular Hemoglobin 27.7 pg (26.7-34.0); Mean Corpuscular Volume 85.9 fL (81.0-99.0); Mean Platelet Volume 10.6 fL (9.5-13.5); Monocytes Absolute Auto 0.8 10^3/uL (0.3-0.8); Neutrophils Absolute Auto 6.5 10^3/uL (1.4-6.5); Neutrophils Percent Auto 64.2 % (43.0-75.0); Platelet Count 208 10^3/uL (150-450); Red Blood Count 4.95 10^6/uL (4.20-5.40); Red Cell Distribution Width 13.1 % (11.0-15.0); White Blood Count 10.1 10^3/uL (4.0-11.0)
[2023-08-30 11:52] LABS: Free T4 0.72 ng/dL (0.76-1.46)
[2023-08-30 11:59] LABS: Alanine Aminotransferase 25 U/L (14-59); Albumin Globulin Ratio 1.1; Albumin Level 3.7 g/dL (3.4-5.0); Alkaline Phosphatase 108 U/L (46-116); Anion Gap 11.8; Aspartate Amino Transferase 13 U/L (15-37); Bilirubin Total 0.2 mg/dL (0.2-1.0); Carbon Dioxide 29.2 mmol/L (21.0-32.0); Chloride 102 mmol/L (98-107); Estimated GFR (African America >60 (>=60); Estimated GFR (Non-African Ame >60 (>=60); Globulin 3.5 g/dL; Glucose 104 mg/dL (74-106); Sodium 139 mmol/L (136-145); Thyroid Stimulating Hormone 2.246 uIU/mL (0.358-3.740); Total Protein 7.2 g/dL (6.4-8.2)
== END 2023-08-30 09:50 | disposition home or self-care (01) ==
LOC: LAB 09:50
PROVIDERS: PCP Family Medicine; Visit Provider Family Medicine
DX: I11.0 Hypertensive heart disease with heart failure (principal); E03.9 Hypothyroidism, unspecified; I50.30 Unspecified diastolic (congestive) heart failure; R53.83 Other fatigue; R00.2 Palpitations
CPT/HCPCS: 36415; 80053; 83880; 84439; 84443; 85025

== ENCOUNTER 2023-09-02 10:00 | Outpatient (OUT) | payer OTHER, SELFPAY | END 2023-09-02 10:01 | disposition home or self-care (01) | LOC: CARD 10:00 | PROVIDERS: PCP Family Medicine; Visit Provider Family Medicine | DX: R00.2 Palpitations (principal) | CPT/HCPCS: 93246 ==

== ENCOUNTER 2023-10-04 09:23 | Outpatient (OUT) | payer OTHER, SELFPAY ==
[2023-10-04 11:26] LABS: Free T3 2.25 pg/mL (2.18-3.98); Thyroid Stimulating Hormone 1.548 uIU/mL (0.358-3.740)
== END 2023-10-04 09:24 | disposition home or self-care (01) ==
PROVIDERS: PCP Family Medicine; Visit Provider Family Medicine
DX: E03.9 Hypothyroidism, unspecified (principal)
CPT/HCPCS: 36415; 84436; 84443; 84481

== ENCOUNTER 2023-10-31 07:49 | Outpatient (OUT) | payer OTHER, SELFPAY ==
--- NOTE | 2023-10-31 08:00 | CA_ITS ---
Patient Name: EPHRAIM MONTGOMERY MR#: [id number] : 1995 Exam Date: 10/31/2023 Ordering Doctor: DR Aldair Gomez . ECHOCARDIOGRAM REPORT PROCEDURE: CA ECHO DOPPLER COMPLETE INDICATIONS: Dyspnea on exertion COMPARISON: None. DESCRIPTION: COMPLETE ECHOCARDIOGRAM Real-time transthoracic echocardiography with 2D, M-mode, spectral and color flow Doppler performed. QUALITY: Technical quality was good. LEFT VENTRICLE: Normal chamber size. Normal left ventricular wall thickness. LV EF: Global left ventricular systolic function is normal; visually estimated ejection fraction is 55 to 60%. No obvious wall motion abnormalities. DIASTOLIC: Normal diastolic function. ATRIAL SEPTUM: Visually appears intact LEFT ATRIUM: Normal chamber size. RIGHT ATRIUM: Normal chamber size. RIGHT VENTRICLE: Normal chamber size. Normal systolic function. TRICUSPID VALVE: Normal mobility and thickness. No stenosis with no regurgitation. Unable to assess right-sided pressures due to lack of measurable tricuspid regurgitation. MITRAL VALVE: Normal mobility and thickness. No evidence of mitral valve stenosis. There is no mitral annular calcification. No mitral regurgitation. AORTIC VALVE: Normal trileaflet appearance. No visible sclerosis. Normal leaflet mobility. No evidence of aortic valve stenosis. No aortic regurgitation. AORTIC ROOT: Normal diameter and appearance. Ascending aorta is normal in size. PULMONIC VALVE: Normal thickness and mobility. No stenosis. Trivial regurgitation. PERICARDIUM: No evidence of pericardial effusion. IVC: Within normal limits. CONCLUSION: 1. Global left ventricular systolic function is normal; visually estimated ejection fraction is 55 to 60% 2. Normal right ventricular size and systolic function 3. Normal diastolic function 4. No significant valvular abnormalities Adult Echocardiography Procedure Report Left Ventricle LVEDD (3.7 - 5.6 cm): 4.90 cm LVESD (2.2 - 4.0 cm): 3.50 cm LVIVS thickness (0.6 - 1.2 cm): 0.76 cm LVPW thickness (0.5 - 1.0 cm): 0.72 cm e': 0.10 m/s E - e': 5.41 LVOT Max Gradient: 3.32 mm[Hg], 3.10 mm[Hg] LVOT Area (cm2): 0.90 m/s Peak Velocity (LVOT): 0.91 m/s, 0.88 m/s Mean Velocity (LVOT): 0.62 m/s LVOT Diameter 2.21 cm Left Atrium LA Volume Index (2D A2C): 18.23 ml/m2 Left Atrium Systolic Dimension: 3.29 cm Mitral Valve MV E to A Ratio: 1.22 Mitral Valve A-Wave Peak Velocity: 0.46 m/s Mitral Valve E-Wave Peak Velocity: 0.56 m/s Right Ventricle Aorta AO Root Diam: 3.13 cm Ascending Ao Diam: 2.88 cm Aortic Valve AoV Area (Peak Toni): 2.66 cm2, 2.70 cm2 AoV Area (VTI): 2.51 cm2, 2.59 cm2 Peak Velocity(Antegrade Flow): 1.29 m/s Peak Gradient(Antegrade Flow): 6.64 mm[Hg] Mean Velocity(Antegrade Flow): 0.87 m/s Mean Gradient(Antegrade Flow): 3.48 mm[Hg] Velocity Time Integral: 26.17 cm Tricuspid Valve Pulmonic Valve Mean Gradient: 2.55 mm[Hg] Mean Velocity: 0.73 m/s Peak Velocity: 1.12 m/s, 0.94 m/s Peak Gradient: 3.53 mm[Hg], 5.01 mm[Hg] Right Atrium Right Atrium Systolic Pressure: 30.13 ml, 30.13 ml Dictated by: Jadyn Wong M.D. on 10/31/2023 at 17:29 Approved by: Jadyn Wong M.D. on 10/31/2023 at 17:31
[2023-10-31 08:05] LABS: Hemoglobin 13.3 g/dL (12.0-16.0)
--- OUTSIDE RECORDS SUMMARY | 2023-10-31 08:06 | XMS_ITS | CCD ---
Author Organization [facility] Care Team Providers Care Organizational Effectiveness Consultant Name Role Phone Eric Diaz Unavailable MD Lona Gomez Primary Care Provider [phone] JANET Hendrix Attending Provider NATALIE Reyes, DR ZAMORANO Consulting Unavailable HOY ., DR ZAMORANO Attending Unavailable HOY ., DR ZAMORANO Admitting Unavailable HOY ., DR ZAMORANO Primary Care Unavailable ENDER, DR NILDA Rodriguez Consulting Unavailable MISC, DR ALEXIS Attending Unavailable MISC, DR ALEXIS Admitting Unavailable HOY ., DR ZAMORANO Primary Care Unavailable HEDLEY, DR NILDA Rodriguez Consulting Unavailable MISC, DR [...] HOY ., DR ZAMORANO Primary Care Unavailable HEDLEY, DR NILDA Rodriguez Consulting Unavailable PAY ., DR WYNNE Attending Unavailable PAY ., DR WYNNE Admitting Unavailable PAY ., DR WYNNE Consulting Unavailable GRECHNY ., ESSENCE GUARDADO Consulting UnavailBERNARDO Eldridge Admitting Unavailable HOY ., DR ZAMORANO Primary Care Unavailable GRECHNY ., ESSENCE GUARDADO Consulting UnavailBERNARDO Eldridge Attending Unavailable IKE COMBS Consulting Unavailable Al Snow Unavailable MARY TRAN Primary Care Unavailable GHAZAL MIJARES Referring Unavailable HUSSEIN CHARLES Attending Unavailable RADHA POSADA Attending Unavailable ALEX RIDER Attending Unavailable HUSSEIN CHARLES Attending Unavailable HUSSEIN CHARLES Attending Unavailable DO Ced Saul SEric Attending Unavailable Ning PATEL Attending Unavailable Lona Gomez Primary Care Physician Leah Casiano Attending Unavailable Leah Casiano Attending Unavailable Dorys, Ced S. Attending Unavailable HUSSEIN CHARLES Attending Unavailable RADHA POSADA Attending Unavailable HUSSEIN CHARLES Attending Unavailable HUSSEIN CHARLES Attending Unavailable ALEX RIDER Attending Unavailable Allergies Allergy Classification Reported Allergen(s) Allergy Type Date of Onset Reaction(s) Facility (2 sources) Latex Drug allergy (disorder) 02-24-2016 [facility] Repository Medications Current Medications Medication Drug [...] 2021 1:00am take 1 capsule by mo [facility] every twenty-four hours Cymbalta 60 MG [...] PO Q4H 20 April 25, 2021 1:00am Problems Active Problems [...] Translations: [Gastro-esophageal reflux disease without esophagitis] Chronic Headache; including migraine (1 source) Headache; Translations: [Headache, unspecified] Onset: 08-25-2023 Episodic Hemorrhage during ; abruptio placenta; placenta previa [...] 11-04-2021 Chronic Other aftercare (1 source) Other long term acute care registered nurse (current) drug therapy; Translations: [[facility] CURRENT DRUG THERAPY] Onset: 06-14-2022 Episodic Other [...] Range Facility CT Head or Brain w/o Contrscott ton 08-26-2023 CT Head or Brain w/o [...] M.D. Transcribed by: MENDY Technologist: BRIAN Stone [facility] ED Clinical Summaryon 2023 ED Clinical Summary ED Clinical Summary [place] [id number] ED Clinical Summary Person Information Name: MARIANGEL MONTGOMERY/[facility] Age: 27 Years : 1995 Sex: Female Language: Czech PCP: Lona Gomez MD Marital Status: Visit [...] 08/26/2023 00:23:44 08/26/2023 00:23:44 08/26/2023 00:23:44 ADDRESS: [address] [place] [address] [phone] PHYS DOC NOTES: MEDICAL INFORMATION: Prescriptions Given: PATIENT EDUCATION INFORMATION: Instructions: General Headache Without Cause Follow up: With: Address: When: Lona Gomez [address] [place] [id number] Business (1) In 3 days DIAGNOSIS: Headache Normal [facility] ED Patient Summaryon 024 ED Patient Summary ED Patient Summary [address] [address] Patient Discharge Instructions Person Information Name: MARIANGEL MONTGOMERY Age: 27 Years Arrival Date: 08/25/2023 20:33:54 Discharge Diagnosis: Headache Primary Care Physician: Lona Gomez MD Provider Information Primary Provider: Ced Saul DO Advanced Form Setter:None The exam and treatment you received in the Emergency Department were for an urgent problem and are not intended as complete care. It is important that you follow up with a doctor, nurse practitioner, or physician?s assistant teaching professor for ongoing care. If your symptoms become worse or you do not improve as expected and you are unable to reach your usual health care provider, you should return to the Emergency Department. We are available 24 hours a day. MARIANGEL MONTGOMERY has been given the following list of patient education materials, prescriptions and follow-up instructions: Follow-up Instructions: With: Address: When: Lona Gomez [address] [place] [id number] Business (1) In 3 days In the event that this physician does not participate in your insurance network, please consult with your insurance company to find a nearby participating provider. Patient Education Materials: General Headache Without Cause A MESSAGE TO ALL PATIENTS REGARDING OPIOIDS PRESCRIPTION OPIOIDS: WHAT YOU NEED TO KNOW Prescription opioids can be used to help relieve akdbwzlc-ou-edwbce pain and are often prescribed following a [...] be struggling with addiction, tell your health family day carer and ask for guidance or call [facility]?S [employer] Helpline at [phone]. p Source: [place] Department (more content not included)... Normal [facility] XR Chest Single Viewon 08-25 XR Chest [...] in mGy = n/a DAP = n/a [facility] BMPOrdered By: SYSTEM SYSTEM on 08-25-2023 Anion gap [Moles/Vol] 12 mmol/L Normal 6 - 16 mEq/L R emisol Chem Comment on above: Performed By: #### 2 [id number] #### [facility] [address] [place] [address] Calcium [Mass/Vol] 9.1 mg/dL Normal 8.9 - 11. 1 mg/dL Remisol Chem Comment on above: Performed By: #### 2 [id number] #### [facility] [address] [place] [address] Chloride [Moles/Vol] 104 mmol/L Normal 101 - 1 11 mmol/L Remisol Chem Comment on above: Performed By: #### 2 148732 #### [facility] [address] [place] [address] CO2 [Moles/Vol] 25 mmol/L Normal 21 - 31 mmol/L Remisol Chem Comment on above: Performed By: #### 2 [id number] #### [facility] [address] [place] [address] Creatinine [Mass/Vol] 0.6 mg/dL Normal 0.5 - 1.3 mg/dL Remisol Chem Comment on above: Performed By: #### 2 [id number] #### [facility] [address] [place] [address] Glucose [Mass/Vol] 104 mg/dL Normal 55 - 199 mg/dL Remisol Chem Comment on above: Performed By: #### 2 [id number] #### [facility] [address] [place] [address] Potassium [Moles/Vol] 3.7 mmol/L Normal 3.5 - 5.3 mmol/L Remisol Chem Comment on above: Performed By: #### 2 [id number] #### [facility] [address] [place] [address] Sodium [Moles/Vol] 137 mmol/L Normal 135 - 145 mmol/L Remisol Chem Comment on above: Performed By: #### 2 544571 #### [facility] [address] [place] [address] Urea nitrogen [Mass/Vol] 11 mg/dL Normal 5 - 21 mg/dL Remisol Chem Comment on above: Performed By: #### 2 [id number] #### [facility] [address] [place] [address] BMPon 08-25-2023 Urea nitrogen/Creatinine [Mass ratio] 18 No Units Normal 10-20 [facility] Comment on above: Performed By: #### 2 [id number] #### [facility] [address] [place] [address] CBC w/ Auto DiffOrdered By: SYSTEM SYSTEM on 08-25-2023 Basophils/100 WBC (Bld) 0.5 % Normal 0.0 - 2.0 % Remisol Heme Comment on above: Performed By: #### 2 [id number] #### [facility] [address] [place] [address] Basophils/Leukocytes Auto (Bld) [Pure # fraction] 0.0 E9/L Normal 0.0 - 0.2 E9/L Remisol Heme Comment on above: Performed By: #### 2 258158 #### [facility] [address] [place] [address] Eosinophils (Bld) [#/Vol] 0.1 E9/L Normal 0.0 - 0.5 E9/L Remisol Heme Comment on above: Performed By: #### 2 524997 #### [facility] [address] [place] [address] Eosinophils/100 WBC (Bld) 1.6 % Normal 0.0 - 8.0 % Remisol Heme Comment on above: Performed By: #### 2 873955 #### [facility] [address] [place] [address] Erythrocyte distribution width (RBC) [Ratio] 14.4 % High 10.9 - 14.2 % Remisol Heme Comment on above: Performed By: #### 2 938403 #### [facility] [address] [place] [address] Hematocrit (Bld) [Volume fraction] 41.0 % Normal 34.0 - 46.0 % Remisol Heme Comment on above: Performed By: #### 2 084095 #### [facility] [address] [place] [address] Hemoglobin (Bld) [Mass/Vol] 14.2 g/dL Normal 12.0 - 16.0 gm/dL Remisol Heme Comment on above: Performed By: #### 2 [id number] #### [facility] [address] [place] [address] Lymphocytes (Bld) [#/Vol] 2.1 E9/L Normal 1.0 - 4.0 E9/L Remisol Heme Comment on above: Performed By: #### 2 943409 #### [facility] [address] [place] [address] Lymphocytes/100 WBC (Bld) 23.8 % Normal 14.0 - 50.0 % Remisol Heme Comment on above: Performed By: #### 2 809093 #### [facility] [address] [place] [address] MCH (RBC) [Entitic mass] 28.6 pg Normal 27.0 - 34.0 pg Remisol Heme Comment on above: Performed By: #### 2 352584 #### [facility] [address] [place] [address] MCHC (RBC) [Mass/Vol] 34.7 g/dL Normal 31.4 - 36.0 gm/dL Remisol Heme Comment on above: Performed By: #### 2 309456 #### [facility] [address] [place] [address] MCV (RBC) [Entitic vol] 82.5 fL Normal 80.0 - 100.0 fL Remisol Heme Comment on above: Performed By: #### 2 614826 #### [facility] [address] [place] [address] Monocytes (Bld) [#/Vol] 0.6 E9/L Normal 0.2 - 1.0 E9/L Remisol Heme Comment on above: Performed By: #### 2 177720 #### [facility] [address] [place] [address] Neutrophils (Bld) [#/Vol] 5.8 E9/L Normal 2.0 - 7.5 E9/L Remisol Heme Comment on above: Performed By: #### 2 739176 #### [facility] [address] [place] [address] Neutrophils/100 WBC (Bld) 66.7 % Normal 36.0 - 75.0 % Remisol Heme Comment on above: Performed By: #### 2 548188 #### [facility] [address] [place] [address] Platelet 223.0 E9/L Normal 150.0 - 500.0 E9/L Remisol Heme Comment on above: Performed By: #### 2 635241 #### [facility] [address] [place] [address] Platelet mean volume (Bld) [Entitic vol] 9.0 fL Normal 6.4 - 10.8 fL Remisol Heme Comment on above: Performed By: #### 2 041304 #### [facility] [address] [place] [address] RBC (Bld) [#/Vol] 5.0 E12/L Normal 4.3 - 5.9 E12/L Remisol Heme Comment on above: Performed By: #### 2 793815 #### [facility] [address] [place] [address] WBC corrected for nucl RBC Auto (Bld) [#/Vol] 8.8 E9/L Normal 4.0 - 11.0 E9/L Remisol Heme Comment on above: Performed By: #### 2 143198 #### [facility] [address] [place] [address] CHEMISTRYOrdered By: SYSTEM SYSTEM on 08-25-2023 Troponin HS pg/mL Low 10.10 - 27.10 pg/mL Remisol Chem Comment on above: Interpretive Data: T he 95% CI (Confidence Interval) PPV (Positive Predictive Value) for myocardial infarction in females is 38 pg/mL, in males 51 pg/mL. The results should be used in conjunction with clinical conditions of myocardial infarction. (Access High Sensitivity Troponin I Instructions For Use, Jorje Nina, September 2017) Urea nitrogen/Creatinine [Mass ratio] 18 mg/mg Normal 10 - 20 Remisol Chem COAGULATIONOrdered By: Nani on Nicki on 08-25-2023 aPTT Coag (PPP) [Time] 32.5 s Normal 25.1 - 36.5 second(s) [facility] Auto Coag Comment on above: Interpretive Data: P martha 15 days - 4 weeks 1 - [...] the same coagulation reagent and instrumentation as [facility]. Currently there are no coagulation studies available worldwide for children to 14 days, and no normal ranges. Heparin therapeutic range (represented by Anti-Factor Xa activity of 0.2 - 0.4 U/mL) corresponds to PTT of 56.6 - 109.0 sec. PT Coag (PPP) [Time] 10.7 s Normal 9.4 - 1 2.5 second(s) [facility] Auto Coag Comment on above: Interpretive Data: 1 5 days - 4 weeks 1 - 5 months 6 -11 months 1 5 years 6 10 years 11 -17 years Mean: 11.2 (9.5 12.6) Mean: 11.0 (9.7 12.8) Mean: 11.0 (9.8 13.0) Mean: 11.3 (9.9 13.4) Mean: 11.7 (10.0 14.6) Mean: 11.8 (10.0 - 14.1) Pediatric Reference ranges were obtained from a study by delgado Denson prepared from 1437 samples obtained at 7 different centers using the same coagulation reagent and instrumentation as [facility]. Currently there are no coagulation studies available worldwide for children to 14 days, and no normal ranges. ED Note-Physicianon 08-25-19 ED Note-Physician ED Note-Physician [...] and Complexity of Problems Differential Diagnosis: [] [facility] Data External documents reviewed: N/A My EKG [...] medications Follow-up With When Contact Information Lona Natalie In 3 days [address] [facility] [address] Business (1) Additional Instructions: Patient Education General [...] 21:00:00) Lymph Auto: 23.8 % (08/25/23 21:00:00) Love Auto: 7.4 % (08/25/23 21:00:00) Eos Auto: 1.6 % (08/25/23 21:00:00) Basophil Auto: 0.5 % (08/25/23 21:00:00) Neutro Absolute: 5.8 E9/L (08/25/23 21:00:00) Lymph Absolute: 2.1 E9/L (08/25/23 21:00:00) Love Absolute: 0.6 E9/L (08/25/23 21:00:00) Eos Absolute: [...] Potassium Lvl: (more content not included)... Normal [facility] Comment on above: Result Comment: Elec tronically Signed By: Ced Saul DO\.br\Date and Time Signed: 08/25/23 23:50 EDT HEMATOLOGYOrdered By: SYSTEM SYSTEM on 08-25-2023 Monocytes/100 WBC (Bld) 7.4 % Normal 4.0 - 14.0 % Remisol Heme PT & PTTon 08-25-2023 aPTT Coag (PPP) [Time] 32.5 second(s) Normal 25.1-36.5 [facility] Comment on above: Result Comment: Para meter [...] the same coagulation reagent and instrumentation as [facility]. Currently there are no coagulation studies available worldwide for children to 14 days, and no normal ranges. Heparin therapeutic range (represented by Anti-Factor Xa activity of 0.2 - 0.4 U/mL) corresponds to PTT of 56.6 - 109.0 sec. Performed By: #### 1 [id number] #### [facility] [address] [place] [address] PT Coag (PPP) [Time] 10.7 second(s) Normal 9.4-12.5 [facility] Comment on above: Result Comment: 15 d [...] the same coagulation reagent and instrumentation as [facility]. Currently there are no coagulation studies available worldwide for children to 14 days, and no normal ranges. Performed By: #### 1 [id number] #### [facility] [address] [place] [address] PT & PTTOrdered By: Brandie Caceres on 08-25-2023 INR Coag (PPP) [Relative time] 0.96 {INR} Invalid Interpretation Code [facility] Auto Coag Comment on above: Result Comment: INR results are specifically intended to assess patients stabilized on long-term Anticoagulation therapy suggested INR?s ?Less Intensive Anticoagulation? 2.0 ? 3.0 Conventional Range 3.0 ? 4.5 Performed By: #### 1 [id number] #### [facility] [address] [place] [address] Interpretive Data: I NR results are specifically intended to assess patients stabilized on long-term Anticoagulation therapy suggested INR s Less Intensive Anticoagulation 2.0 3.0 Conventional Range 3.0 4.5 Troponin 0 Hr.on 08-25-2023 Troponin HS <2.30 Low 10.10-27.10 [facility] Comment on above: Result Comment: The 95% CI (Confidence Interval) PPV (Positive Predictive Value) for myocardial infarction in females is 38 pg/mL, in males 51 pg/mL. The results should be used in conjunction with clinical conditions of myocardial infarction. (Access High Sensitivity Troponin I Instructions For Use, Jorje Nina, September 2017) Performed By: #### 1 [id number] #### [facility] [address] [place] [address] eGFROrdered By: SYSTEM SogouE Reclog on 08-25-2023 eGFR 124 mL/min/1.73 m2 Normal >=59 Remiso l Chem Comment on above: Order Comment: Order added by Discern Expert. Performed By: #### 1 [id number] #### [facility] [address] [place] [address] Quantiferon-TB Plus (Client Incubated)on 06-28-2023 Gamma interferon background IA Qn (Bld) 0.05 International_Unit/mL Invalid Interpretation Code [facility] Comment on above: Performed By: #### 2 932127, [id number], [id number], [id number] #### [facility] [address] [place] [address] M. tuberculosis stim IFN-g by CD4+ CD8+ T-cells corrected for background Qn (Bld) 0.04 International_Unit/mL Invalid Interpretation Code [facility] Comment on above: Performed By: #### 2 641590, [id number], [id number], [id number] #### [facility] [address] [place] [address] M. tuberculosis stim IFN-g by CD4+ T-cells corrected for background Qn (Bld) 0.04 International_Unit/mL Invalid Interpretation Code [facility] Comment on above: Performed By: #### 2 177954, [id number], [id number], [id number] #### [facility] [address] [place] [address] M. tuberculosis stim IFN-g Ql (Bld) [Interp] Negative Invalid Interpretation Code Negative [facility] Comment on above: Result Comment: No r [...] interferon gamma. Chemiluminescence immunoassay methodology Performed at: [facility] [id number] PhD Allen Allan Performed By: #### 2 114656, [id number], [id number], [id number] #### [facility] [address] [place] [address] Mitogen stimulated gamma interferon corrected for background Qn (Bld) >10.00 Invalid Interpretation Code [facility] Comment on above: Performed By: #### 2 141705, [id number], [id number], [id number] #### [facility] [address] [place] [address] Service comment (Unsp spec) [Interp] Comment Invalid Interpretation Code [facility] Comment on above: Result Comment: Saeed tiFERON-TB [...] for the test. Performed By: #### 2 501425, [id number], [id number], [id number] #### [facility] [address] [place] [address] Hep Bs Abon 06-27-2023 HBV surface Ab Ql (S) Reactive Invalid Interpretation Code [facility] Comment on above: Result Comment: Non Reactive: Inconsistent with immunity, less than 10 mIU/mL Reactive: Consistent with immunity, greater than 9.9 mIU/mL Performed at: [address] [id number] PhD Allen Allan Performed By: #### 2 446272, [id number], [id number], [id number] #### [facility] [address] [place] [address] Measles/Mumps/Rubella Immuni tyon 06-27-2023 MeV IgG IA Qn (S) {index_val} Invalid Interpretation Code Immune >16.4 [facility] Comment on above: Result Comment: Nega tive <13.5 Equivocal 13.5 - 16.4 Positive >16.4 Presence of antibodies to Rubeola is presumptive evidence of immunity except when acute infection is suspected. Performed By: #### 2 111141, [id number], [id number], [id number] #### [facility] [address] [place] [address] MuV IgG IA Qn (S) 12.7 A unit/mL Invalid Interpretation Code Immune >10.9 [facility] Comment on above: Result Comment: Nega tive <9.0 Equivocal 9.0 - 10.9 Positive >10.9 A positive result generally indicates past exposure to Mumps virus or previous vaccination. Performed at: [facility] [address] [place], [place] [id number] PhD Allen Allan Performed By: #### 2 766986, [id number], [id number], [id number] #### [facility] [address] [place] [address] Rubella virus IgG Qn (S) 8.63 [IU]/mL Invalid Interpretation Code Immune >0.99 [facility] Comment on above: Result Comment: Non- immune <0.90 Equivocal 0.90 - 0.99 Immune >0.99 Performed By: #### 2 316226, 93091557, [id number], [id number] #### [facility] [address] [place] [address] Varic IgGon 06-27-2023 VZV IgG IA Qn (S) 1013 Invalid Interpretation Code Immune >165 [facility] Comment on above: Result Comment: Nega tive <135 Equivocal 135 - 165 Positive >165 A positive result generally indicates exposure to the pathogen or administration of specific immunoglobulins, but it is not indication of active infection or stage of disease. Performed at: [facility] [address] [place], [place] [id number] PhD Allen Allan Performed By: #### 2 581067, [id number], [id number], [id number] #### [facility] [address] [place] [address] Adilson Kiton 10-18-2022 Adilson Kit Forwarded to Adilson Normal [facility] Comment on above: Performed By: #### N ATER #### [address] [address] Director Project Management: Neeraj Cabrera MD ER URINE PROFILEon 3 Bilirubin Ql (U) Negative Normal NEGATIVE [facility] Comment on above: Performed By: #### IVET OSBORN ####[facility] [address] [place] [address]Dr. Yilan Norris Clarity (U) CLEAR Normal CLEAR [facility] Comment on above: Performed By: #### Jackelyn BOTELOL UMICRO ####[facility] [address] [place], [place] [address]Dr. Jc Norris Color (U) LT. YELLOW Normal YELLOW [facility] Comment on above: Performed By: #### Jackelyn BOTELLO UMICRO ####[facility] [address] [place], [place] [address]Dr. Jc Norris ERUAHD A micrscopic examination will be performed if indicated. Normal [facility] Comment on above: Performed By: #### Jackelyn BOTELLO UMICRO ####[facility] [address] [place], [place] [address]Dr. Jc Norris Glucose Ql (U) Negative Normal NEGATIVE [facility] Comment on above: Performed By: #### Jackelyn BOTELLO UMICRO ####[facility] [address] [place], [place] [address]Dr. Jc Norris Hemoglobin Ql (U) MODERATE Abnormal NEGATIVE [facility] Comment on above: Performed By: #### Jackelyn BOTELLO UMICRO ####[facility] [address] [place], [place] [address]Dr. Jc Norris Ketones Ql (U) Negative Normal NEGATIVE [facility] Comment on above: Performed By: #### Jackelyn BOTELLO UMICRO ####[facility] [address] [place], [place] [address]Dr. Jc Norris LEUKOCYTES SMALL Abnormal NEGATIVE [facility] Comment on above: Performed By: #### Jackelyn BOTELLO UMICRO ####[facility] [address] [place], [place] [address]Dr. Jc Norris Nitrite Ql (U) Negative Normal NEGATIVE [facility] Comment on above: Performed By: #### Jackelyn BOTELLO UMICRO ####[facility] [address] [place], [place] [address]Dr. Jc Norris pH (U) 6.5 [pH] Normal 5-9 [facility] Comment on above: Performed By: #### SHIMA OSBORNRO ####[facility] [address] [place] [address]Dr. Jc Norris SPEC GRAVITY 1.020 Normal 1.005-<=1.02 5 [facility] Comment on above: Performed By: #### SHIMA OSBORNRO ####[facility] [address] [place] [address]Dr. Jc Norris UA PROTEIN Negative Normal NEGATIVE/ TRACE [facility] Comment on above: Performed By: #### SHIMA OSBORNRO ####[facility] [address] [place] [address]Dr. Jc Norris UR MICRO IND INDICATED Normal [facility] Comment on above: Performed By: #### SHIMA OSBORNRO ####[facility] [address] [place], [place] [address]Dr. Jc Norris Urobilinogen Qn (U) 0.2 {Diamond'U}/dL Normal 0.2 - 1. 0 [facility] Comment on above: Performed By: #### SHIMA OSBORNRO ####[facility] [address] [place], [place] [address]Dr. Jc Norris URINE MICROSCOPIC ONLYon BACTERIA TRACE Abnormal NONE SEEN [facility] Comment on above: Performed By: #### SHIMA OSBORNRO ####[facility] [address] [place], [place] [address]Dr. Jc Norris Bacteria identified Cx Nom (U) NOT INDICATED Normal [facility] Comment on above: Performed By: #### SHIMA OSBORNRO ####[facility] [address] [place] [address]Dr. Jc Norris CAST NONE SEEN Normal NONE SEEN [facility] Comment on above: Performed By: #### SHIMA OSBORNRO ####[facility] [address]unfk[address] [place] [address]Dr. Jc Norris Crystals LM Nom (Urine sed) NONE SEEN Normal NONE SEEN [facility] Comment on above: Performed By: #### SHIMA OSBORNRO ####[facility] [address] [place] [address]Dr. Jc Norris Epithelial cells LM Ql (Urine sed) MODERATE Abnormal NONE SEEN /RARE [facility] Comment on above: Performed By: #### IVET OSBORN ####[facility] [address] [place] [id number] Norris MUCOUS TRACE Abnormal NONE SEEN [facility] Comment on above: Performed By: #### SHIMA OSBORNRO ####[facility] [address]ke[address] [place] [id number]. Jc Norris RBC 2-5 Abnormal 0-2 [facility] Comment on above: Performed By: #### IVET OSBORN ####[facility] [address] [place] [address]Dr. Jc Norris WBC 2-5 Abnormal NONE SEEN [facility] Comment on above: Performed By: #### IVET OSBORN ####[facility] Thimjc[address]kxp[address] [place] [address]DrEric Norris HEP B SURFACE ANTIGEN SCREEN on 07-01-2022 HBsAg Screen Negative Normal Negative [facility] Comment on above: Performed By: #### C MP, LIPID, TSH, T7, BNP #### [facility] [address] [place], [place] [address] Dr. Jc Norris HEPATITIS C VIRUS AB W/ REFL EX QUANTon 07-01-2022 HCV AB Non-Reactive Normal Non Reactive [facility] Comment on above: Performed By: #### H CVPCRR ####[facility] [address] [place] [address]Dr. Jc Norris Interpretation: Comment Normal [facility] Comment on above: Result Comment: Not infected with HCV unless early or acute infection is suspected (which may be delayed in an immunocompromised individual), or other evidence exists to indicate HCV infection. Performed By: #### H CVPCRR ####[facility] [address] [place] [address]DrEric Norris RPR QUANTon 07-01-2022 Rapid Plasma Reagin, Quant Non-Reactive Normal NonRea<1:1 [facility] Comment on above: Result Comment: Plejerry se Note: This test does not meet current guidelines for screening and diagnosis of syphilis. This test is intended for following treatment response in patients being treated for syphilis infection. To screen for syphilis infection, a reflex cascade that includes both RPR and a treponema-specific assay should be utilized, such as Treponema pallidum (Syphilis) Screening [place] (799643) or Rapid Plasma Reagin (RPR) Test With Reflex to Quantitative RPR and Confirmatory Treponema pallidum Antibodies (960775). Performed By: #### R PRQ ####[facility] [address] [place] [address]Dr. Jc Norris RUBELLA AB IGGon 07-01-2022 Rubella Antibodies, IgG 3.13 index Normal Immune >0.99 [facility] Comment on above: Result Comment: Non- immune <0.90 Equivocal 0.90 - 0.99 Immune >0.99 Performed By: #### C BC #### [facility] [address] [place] [address] Dr. Jc Norris BOX TEST SENT OUTon 07-01-19 SENT TO REF LAB 06/30/22 Normal [facility] Comment on above: Performed By: #### C MP, LIPID, TSH, T7, BNP #### [facility] [address] [place] [address] Dr. Jc Norris CBC AUTO DIFFon 06-30-2022 BASO # 0.0 103/ul Normal 0.0-0.1 [facility] Comment on above: Performed By: #### C BC #### [facility] [address] [place] [address] Dr. Jc Norris Basophils/100 WBC (Bld) 0.4 % Normal 0.2-2.0 [facility] Comment on above: Performed By: #### C BC #### [facility] [address] [place] [address] Dr. Jc Norris EO # 0.1 103/ul Normal 0.0-0.7 [facility] Comment on above: Performed By: #### C BC #### [facility] [address] [place] [address] [address] Jc Norris Eosinophils/100 WBC (Bld) 0.7 % Critically low 0.9-7.0 [facility] Comment on above: Performed By: #### C BC #### [facility] [address] [place] [address] Dr. Jc Norris Erythrocyte distribution width (RBC) [Ratio] 12.6 % Normal 11.0-15.0 [facility] Comment on above: Performed By: #### C BC #### [facility] [address] [place] [address] Dr. Jc Norris Hematocrit (Bld) [Volume fraction] 40.1 % Normal 36.0-48.0 [facility] Comment on above: Performed By: #### C BC #### [facility] [address] [place] [address] Dr. Jc Norris Hemoglobin (Bld) [Mass/Vol] 13.2 g/dL Normal 12.0-16.0 [facility] Comment on above: Performed By: #### C BC #### [facility] [address] [place] [address] Dr. Jc Norris IG # 0.05 10e3/ul Critically high 0.00-0.03 [facility] Comment on above: Performed By: #### C BC #### [facility] [address] [place] [address] Dr. Jc Norris IG % 0.6 % Critically high 0.0-0.5 [facility] Comment on above: Performed By: #### C BC #### [facility] [address] [place] [address] Dr. Jc Norris LYMPH # 1.3 103/ul Normal 1.2-3.8 [facility] Comment on above: Performed By: #### C BC #### [facility] [address] [place] [address] Dr. Jc Norris Lymphocytes/100 WBC (Bld) 16.3 % Critically low 20.5-60.0 [facility] Comment on above: Performed By: #### C BC #### [facility] [address] [place] [address] Dr. Jc Norris MANUAL DIFF REQ NO Normal [facility] Comment on above: Performed By: #### C BC #### [facility] [address] [place] [address] Dr. Jc Norris MCH (RBC) [Entitic mass] 28.1 pg Normal 26.7-34.0 [facility] Comment on above: Performed By: #### C BC #### [facility] [address] [place] [address] Dr. Jc Norris MCHC (RBC) [Mass/Vol] 32.9 g/dL Normal 29.9-35.2 [facility] Comment on above: Performed By: #### C BC #### [facility] [address] [place] [address] Dr. Jc Norris MCV (RBC) [Entitic vol] 85.5 fL Normal 81.0-99.0 [facility] Comment on above: Performed By: #### C BC #### [facility] [address] [place] [address] Dr. Jc Norris MONO # 0.5 103/ul Normal 0.3-0.8 [facility] Comment on above: Performed By: #### C BC #### [facility] [address] [place] [address] Dr. Jc Norris Monocytes/100 WBC (Bld) 6.4 % Normal 1.7-12.0 [facility] Comment on above: Performed By: #### C BC #### [facility] [address] [place] [address] Dr. Jc Norris NEUT # 6.1 103/ul Normal 1.4-6.5 [facility] Comment on above: Performed By: #### C BC #### [facility] [address] [place] [address] Dr. Jc Norris Neutrophils/100 WBC (Bld) 75.6 % Critically high 43.0-75.0 [facility] Comment on above: Performed By: #### C BC #### [facility] [address] [place] [address] Dr. Jc Norris Platelet mean volume (Bld) [Entitic vol] 10.7 fL Normal 9.5-13.5 [facility] Comment on above: Performed By: #### C BC #### [facility] [address] [place] [address] [address] Jc Norris PLT 213 103/ul Normal 150-450 [facility] Comment on above: Performed By: #### C BC #### [facility] [address] [place] [address] [address] Jc Norris RBC 4.69 106/ul Normal 4.20-5.40 [facility] Comment on above: Performed By: #### C BC #### [facility] [address] [place] [address] [address] Jc Norris WBC 8.1 103/ul Normal 4.0-11.0 [facility] Comment on above: Performed By: #### C BC #### [facility] [address] [place] [address] Dr. Jc Norris CULTURE URINEon 06-30-2022 CULTURE URINE Culture Observations : NO GROWTH. Normal [facility] Comment on above: Performed By: #### U RCX ####[facility] [address] [place] [address]Dr. Jc Norris GLYCOHEMOGLOBIN A1Con 2022 ADA RECOMMENDATION SEE BELOW Normal [facility] Comment on above: Result Comment: ADA RECOMMENDED LIMIT 4.0 - 6.0 ADA THERAPEUTIC TARGET < 7.0 ACTION SUGGESTED > 7.0 Performed By: #### C MP, LIPID, TSH, T7, BNP #### [facility] [address] [place] [address] [address] Jc Norris Glucose [Mass/Vol] 105 mg/dL Normal [facility] Comment on above: Performed By: #### C MP, LIPID, TSH, T7, BNP #### [facility] [address] [place] [address] [address] Jc Norris HbA1c (Bld) [Mass fraction] 5.3 % Normal 4.5-6.2 [facility] Comment on above: Performed By: #### C MP, LIPID, TSH, T7, BNP #### [facility] [address] [place] [address] [address] Jc Norris TSHon 06-30-2022 TSH 1.580 uIU/mL Normal 0.358-3.740 [facility] Comment on above: Performed By: #### C MP, LIPID, TSH, T7, BNP #### [facility] [address] [place] [id number] [address] Jc Norris TYPE AND SCREENon 06-30-2022 TYPE AND SCREEN Negative Normal [facility] Comment on above: Performed By: #### T NS ####[facility] [address] [place] [address]Dr. Jc Norris US PREG TVon 06-28-2022 US [...] Date: 2022-06-28 15:19 Normal [facility] ABO AND RH TYPEon 06-13-2022 ABO and Rh group Nom (Bld) ABO Rh Typing O Rh Positive Normal [facility] Comment on above: Performed By: #### A BORH ####[facility] [address] [place] [address]Dr. Jc Norris CBC AUTO DIFFon 06-13-2022 BASO # 0.0 103/ul Normal 0.0-0.1 [facility] Comment on above: Performed By: #### C BC #### [facility] [address] [place] [address] [address] Jc Norris Basophils/100 WBC (Bld) 0.2 % Normal 0.2-2.0 [facility] Comment on above: Performed By: #### C BC #### [facility] [address] [place] [address] Dr. Jc Norris EO # 0.1 103/ul Normal 0.0-0.7 [facility] Comment on above: Performed By: #### C BC #### [facility] [address] [place] [address] Dr. Jc Norris Eosinophils/100 WBC (Bld) 0.5 % Critically low 0.9-7.0 [facility] Comment on above: Performed By: #### C BC #### [facility] [address] [place] [address] Dr. Jc Norris Erythrocyte distribution width (RBC) [Ratio] 12.4 % Normal 11.0-15.0 [facility] Comment on above: Performed By: #### C BC #### [facility] [address] [place] [address] Dr. Jc Norris Hematocrit (Bld) [Volume fraction] 41.0 % Normal 36.0-48.0 [facility] Comment on above: Performed By: #### C BC #### [facility] [address] [place] [address] Dr. Jc Norris Hemoglobin (Bld) [Mass/Vol] 13.3 g/dL Normal 12.0-16.0 [facility] Comment on above: Performed By: #### C BC #### [facility] [address] [place] [address] Dr. Jc Norris IG # 0.05 10e3/ul Critically high 0.00-0.03 [facility] Comment on above: Performed By: #### C BC #### [facility] [address] [place] [address] Dr. Jc Norris IG % 0.5 % Normal 0.0-0.5 [facility] Comment on above: Performed By: #### C BC #### [facility] [address] [place] [address] Dr. Jc Norris LYMPH # 1.3 103/ul Normal 1.2-3.8 [facility] Comment on above: Performed By: #### C BC #### [facility] [address] [place] [address] Dr. Jc Norris Lymphocytes/100 WBC (Bld) 12.8 % Critically low 20.5-60.0 [facility] Comment on above: Performed By: #### C BC #### [facility] [address] [place] [address] Dr. Jc Norris MANUAL DIFF REQ NO Normal [facility] Comment on above: Performed By: #### C BC #### [facility] [address] [place] [address] Dr. Jc Norris MCH (RBC) [Entitic mass] 27.9 pg Normal 26.7-34.0 [facility] Comment on above: Performed By: #### C BC #### [facility] [address] [place] [address] Dr. Jc Norris MCHC (RBC) [Mass/Vol] 32.4 g/dL Normal 29.9-35.2 [facility] Comment on above: Performed By: #### C BC #### [facility] [address] [place] [address] Dr. Jc Norris MCV (RBC) [Entitic vol] 86.1 fL Normal 81.0-99.0 [facility] Comment on above: Performed By: #### C BC #### [facility] [address] [place] [address] Dr. Jc Norris MONO # 0.6 103/ul Normal 0.3-0.8 [facility] Comment on above: Performed By: #### C BC #### [facility] [address] [place] [address] Dr. Jc Norris Monocytes/100 WBC (Bld) 6.4 % Normal 1.7-12.0 [facility] Comment on above: Performed By: #### C BC #### [facility] [address] [place] [address] Dr. Jc Norris NEUT # 7.9 103/ul Critically high 1.4-6.5 [facility] Comment on above: Performed By: #### C BC #### [facility] [address] [place] [address] [address] Jc Norris Neutrophils/100 WBC (Bld) 79.6 % Critically high 43.0-75.0 [facility] Comment on above: Performed By: #### C BC #### [facility] [address] [place] [address] [address] Jc Norris Platelet mean volume (Bld) [Entitic vol] 11.1 fL Normal 9.5-13.5 [facility] Comment on above: Performed By: #### C BC #### [facility] [address] [place] [address] [address] Jc Norris PLT 232 103/ul Normal 150-450 [facility] Comment on above: Performed By: #### C BC #### [facility] [address] [place] [address] [address] Jc Norris RBC 4.76 106/ul Normal 4.20-5.40 [facility] Comment on above: Performed By: #### C BC #### [facility] [address] [place] [address] [address] Jc Norris WBC 9.9 103/ul Normal 4.0-11.0 [facility] Comment on above: Performed By: #### C BC #### [facility] [address] [place] [address] [address] Jc Norris CULTURE URINEon 06-13-2022 CULTURE URINE Culture Observations : LIGHT GROWTH OF MIXED GENITAL GENIE. NO POTENTIAL PATHOGENS SEEN. Normal [facility] Comment on above: Performed By: #### U RCX ####[facility] [address] [place] [address]Dr. Jc Norris ER URINE PROFILEon 3 Bilirubin Ql (U) Negative Normal NEGATIVE [facility] Comment on above: Performed By: #### U MICRO, ERUR, PREGU ####[facility] [address] [place] [id number]. Jc Norris Clarity (U) CLEAR Normal CLEAR [facility] Comment on above: Performed By: #### U MICRO, ERUR, PREGU ####[facility] [address] [place] [address]Dr. Kathleenkendall Norris Color (U) LT. YELLOW Normal YELLOW [facility] Comment on above: Performed By: #### U MICRO, ERUR, PREGU ####[facility] [address] [place] [address]Dr. Jc Norris ERUAHD A micrscopic examination will be performed if indicated. Normal [facility] Comment on above: Performed By: #### U MICRO, ERUR, PREGU ####[facility] [address] [place] [address]Dr. Jc Norris Glucose Ql (U) Negative Normal NEGATIVE [facility] Comment on above: Performed By: #### U MICRO, ERUR, PREGU ####[facility] [address] [place] [address]Dr. Jc Norris Hemoglobin Ql (U) Negative Normal NEGATIVE [facility] Comment on above: Performed By: #### U MICRO, ERUR, PREGU ####[facility] [address] [place] [address]Dr. Jc Norris Ketones Ql (U) Negative Normal NEGATIVE [facility] Comment on above: Performed By: #### U MICRO, ERUR, PREGU ####[facility] [address] [place] [address]Dr. Jc Norris LEUKOCYTES MODERATE Abnormal NEGATIVE [facility] Comment on above: Performed By: #### U MICRO, ERUR, PREGU ####[facility] [address] [place] [address]Dr. Jc Norris Nitrite Ql (U) Negative Normal NEGATIVE [facility] Comment on above: Performed By: #### U MICRO, ERUR, PREGU ####[facility] [address] [place] [address]Dr. Jc Norris pH (U) 5.0 [pH] Normal 5-9 [facility] Comment on above: Performed By: #### U MICRO, ERUR, PREGU ####[facility] [address] [place] [address]Dr. Jc Norris SPEC GRAVITY 1.010 Normal 1.005-<=1.02 5 [facility] Comment on above: Performed By: #### U MICRO, ERUR, PREGU ####[facility] [address] [place] [address]Dr. Jc Norris UA PROTEIN Negative Normal NEGATIVE/ TRACE [facility] Comment on above: Performed By: #### U MICRO, ERUR, PREGU ####[facility] [address] [place] [address]Dr. Jc Norris UR MICRO IND INDICATED Normal [facility] Comment on above: Performed By: #### U MICRO, ERUR, PREGU ####[facility] [address]ds[address] [place] [address]Dr. Jc Norris Urobilinogen Qn (U) 0.2 {Diamond'U}/dL Normal 0.2 - 1. 0 [facility] Comment on above: Performed By: #### U MICRO, ERUR, PREGU ####[facility] [address] [place] [address]Dr. Jc Norris PREG QUANT HCGon 06-13-2022 HCG QUANT 47387 mIU/mL Normal [facility] Comment on above: Performed By: #### C BC #### [facility] [address] [place] [address] [address] Jc Norris HCG RANGE SEE BELOW Normal [facility] Comment on above: Result Comment: 5-50 0.2-1 WEEK 50-500 1-2 WEEKS 100-5,000 2-3 WEEKS 500-10,000 3-4 WEEKS 1,000-50,000 4-5 WEEKS 10,000-100,000 5-6 WEEKS 15,000-200,000 6-8 WEEKS 10,000-100,000 2-3 MONTHS Performed By: #### C BC #### [facility] [address] [place] [address] [address] Jc Norris URon 06-13-2022 , QUAL Positive Abnormal NEGATIVE [facility] Comment on above: Performed By: #### U MICRO, ERUR, PREGU ####[facility] [address] [place], [place] [address]TqDr. Jc Norris PROF 14(COMP METB)on 023 Albumin [Mass/Vol] 3.6 g/dL Normal 3.4-5.0 [facility] Comment on above: Performed By: #### C BC #### [facility] [address] [place] [address] [address] Jc Norris Albumin/Globulin [Mass ratio] 1.0 {ratio} Normal [facility] Comment on above: Performed By: #### C BC #### [facility] [address] [place] [address] [address] Jc Norris ALP [Catalytic activity/Vol] 84 U/L Normal 46-116 [facility] Comment on above: Performed By: #### C BC #### [facility] [address] [place] [address] [address] Jc Norris ALT [Catalytic activity/Vol] 18 U/L Normal 14-59 [facility] Comment on above: Performed By: #### C BC #### [facility] [address] [place] [address] [address] Jc Norris Anion gap [Moles/Vol] 10.9 mmol/L Normal [facility] Comment on above: Performed By: #### C BC #### [facility] [address] [place] [address] [address] Jc Norris AST [Catalytic activity/Vol] 13 U/L Critically low 15-37 [facility] Comment on above: Performed By: #### C BC #### [facility] [address] [place] [address] [address] Jc Norris Bilirubin [Mass/Vol] 0.2 mg/dL Normal 0.2-1.0 [facility] Comment on above: Performed By: #### C BC #### [facility] [address] [place] [address] [address] Jc Norris Calcium [Mass/Vol] 9.1 mg/dL Normal 8.5-10.1 [facility] Comment on above: Performed By: #### C BC #### [facility] [address] [place] [address] [address] Jc Norris Chloride [Moles/Vol] 102 mmol/L Normal 98-107 [facility] Comment on above: Performed By: #### C BC #### [facility] [address] [place] [address] [address] Jc Norris CO2 [Moles/Vol] 25.8 mmol/L Normal 21.0-32.0 [facility] Comment on above: Performed By: #### C BC #### [facility] [address] [place] [address] [address] Jc Norris Creatinine [Mass/Vol] 0.52 mg/dL Critically low 0.55-1.02 [facility] Comment on above: Performed By: #### C BC #### [facility] [address] [place] [address] [address] Jc Norris EGFR-AF CYMRO >60 Normal >=60 [facility] Comment on above: Performed By: #### C BC #### [facility] [address] [place] [address] [address] Jc Norris EGFR-NON AF CYMRO >60 Normal >=60 [facility] Comment on above: Performed By: #### C BC #### [facility] [address] [place] [address] [address] Jc Norris Globulin (S) [Mass/Vol] 3.5 g/dL Normal [facility] Comment on above: Performed By: #### C BC #### [facility] [address] [place] [address] Dr. Jc Norris Glucose [Mass/Vol] 104 mg/dL Normal 74-[address] [facility] Comment on above: Performed By: #### C BC #### [facility] [address] [address] [address] Jc Norris Potassium [Moles/Vol] 3.7 mmol/L Normal 3.5-5.1 [facility] Comment on above: Performed By: #### C BC #### [facility] [address] [address] [address] Jc Norris Protein [Mass/Vol] 7.1 g/dL Normal 6.4-8.[address] [facility] Comment on above: Performed By: #### C BC #### [facility] [address] [address] [address] Jc Norris Sodium [Moles/Vol] 135 mmol/L Critically low 136-145 [facility] Comment on above: Performed By: #### C BC #### [facility] [address] [address] [address] Jc oNrris Urea nitrogen [Mass/Vol] 8.0 mg/dL Normal 7.0-18.0 [facility] Comment on above: Performed By: #### C BC #### [facility] [address] [address] [address] Jc Norris Urea nitrogen/Creatinine [Mass ratio] 15.4 mg/mg Normal [facility] Comment on above: Performed By: #### C BC #### [facility] [address] [address] [address] Jc Norris URINE MICROSCOPIC ONLYon BACTERIA NONE SEEN Normal NONE SEEN [facility] Comment on above: Performed By: #### U MICRO, ERUR, PREGU ####[facility] [address] [address]DrEric Norris Bacteria identified Cx Nom (U) INDICATED Normal [facility] Comment on above: Performed By: #### U MICRO, ERUR, PREGU ####[facility] [address] [id number] Norris CAST NONE SEEN Normal NONE SEEN [facility] Comment on above: Performed By: #### U MICRO, ERUR, PREGU ####[facility] [address] [id number] Norris Crystals LM Nom (Urine sed) NONE SEEN Normal NONE SEEN [facility] Comment on above: Performed By: #### U MICRO, ERUR, PREGU ####[facility] [address] [place] [id number] Norris Epithelial cells LM Ql (Urine sed) FEW Abnormal NONE SEEN /RARE [facility] Comment on above: Performed By: #### U MICRO, ERUR, PREGU ####[facility] [address] [address]Dr. Jc Norris MUCOUS TRACE Abnormal NONE SEEN [facility] Comment on above: Performed By: #### U MICRO, ERUR, PREGU ####[facility] [address] [address]Dr. Jc Norris RBC NONE SEEN Abnormal 0-2 [facility] Comment on above: Performed By: #### U MICRO, ERUR, PREGU ####[facility] [address] [address]Dr. Jc Norris WBC 10-20 Abnormal NONE SEEN [facility] Comment on above: Performed By: #### U MICRO, ERUR, PREGU ####[facility] [address] [address]DrEric Norris US PREG TVon 06-13-2022 US PREG [...] Date: 2022-06-13 14:30 Normal [facility] PREG QUANT HCGon 06-02-2022 HCG QUANT 5289 mIU/mL Normal [facility] Comment on above: Performed By: #### C BC #### [facility] [address] [address] [address] Jc Norris HCG RANGE SEE BELOW Normal [facility] Comment on above: Result Comment: 5-50 0.2-1 WEEK 50-500 1-2 WEEKS 100-5,000 2-3 WEEKS 500-10,000 3-4 WEEKS 1,000-50,000 4-5 WEEKS 10,000-100,000 5-6 WEEKS 15,000-200,000 6-8 WEEKS 10,000-100,000 2-3 MONTHS Performed By: #### C BC #### [facility] [address] [address] [address] Jc Norris PREG QUANT HCGon 05-31-2022 HCG QUANT 3671 mIU/mL Normal [facility] Comment on above: Performed By: #### C MP, LIPID, TSH, T7, BNP #### [facility] [address] [address] [address] Jc Norris HCG RANGE SEE BELOW [facility] Comment on above: Result Comment: 5-50 0.2-1 WEEK 50-500 1-2 WEEKS 100-5,000 2-3 WEEKS 500-10,000 3-4 WEEKS 1,000-50,000 4-5 WEEKS 10,000-100,000 5-6 WEEKS 15,000-200,000 6-8 WEEKS 10,000-100,000 2-3 MONTHS Performed By: #### C MP, LIPID, TSH, T7, BNP #### [facility] [address] [place] [address] Dr. Jc Norris PREG QUANT HCGon 05-29-2022 HCG QUANT 1965 mIU/mL Normal [facility] Comment on above: Performed By: #### P REGQNT ####[facility] [address] [address]Dr. Jc Norris HCG RANGE SEE BELOW Normal [facility] Comment on above: Result Comment: 5-50 0.2-1 WEEK 50-500 1-2 WEEKS 100-5,000 2-3 WEEKS 500-10,000 3-4 WEEKS 1,000-50,000 4-5 WEEKS 10,000-100,000 5-6 WEEKS 15,000-200,000 6-8 WEEKS 10,000-100,000 2-3 MONTHS Performed By: #### P REGQNT ####[facility] [address] [place], [place] [address]Dr. Jc Norris US PELVIS AND TRANSVAGon US [...] Date: 2022-05-04 14:31 Normal [facility] CULTURE URINEon 04-07-2022 CULTURE URINE Isolate [...] >=320 R F Normal [facility] Comment on above: Performed By: #### U RCX ####[facility] [address] [place], [place] [address]CjDr. Jc Norris ER URINE PROFILEon 3 Bilirubin Ql (U) Negative Normal NEGATIVE [facility] Comment on above: Performed By: #### C MP, LIPID, TSH, T7, BNP #### [facility] [address] [place], [place] [address] Dr. Jc Norris Clarity (U) SL CLOUDY Abnormal CLEAR [facility] Comment on above: Performed By: #### C MP, LIPID, TSH, T7, BNP #### [facility] [address] [address] [address] Jc Norris Color (U) LT. YELLOW Normal YELLOW [facility] Comment on above: Performed By: #### C MP, LIPID, TSH, T7, BNP #### [facility] [address] [address] [address] Jc BARKER A micrscopic examination will be performed if indicated. Normal [facility] Comment on above: Performed By: #### C MP, LIPID, TSH, T7, BNP #### [facility] [address] [address] [address] Jc Norris Glucose Ql (U) Negative Normal NEGATIVE [facility] Comment on above: Performed By: #### C MP, LIPID, TSH, T7, BNP #### [facility] [address] [place] [address] Dr. Jc Norris Hemoglobin Ql (U) MODERATE Abnormal NEGATIVE [facility] Comment on above: Performed By: #### C MP, LIPID, TSH, T7, BNP #### [facility] [address] [address] [address] Jc Norris Ketones Ql (U) Negative Normal NEGATIVE [facility] Comment on above: Performed By: #### C MP, LIPID, TSH, T7, BNP #### [facility] [address] [address] [address] Jc Norris LEUKOCYTES SMALL Abnormal NEGATIVE [facility] Comment on above: Performed By: #### C MP, LIPID, TSH, T7, BNP #### [facility] [address] [address] [address] Jc Norris Nitrite Ql (U) Positive Abnormal NEGATIVE [facility] Comment on above: Performed By: #### C MP, LIPID, TSH, T7, BNP #### [facility] [address] [address] [address] Jc Norris pH (U) 5.5 [pH] Normal 5-9 [facility] Comment on above: Performed By: #### C MP, LIPID, TSH, T7, BNP #### [facility] [address] [address] [address] Jc Norris SPEC GRAVITY 1.025 Normal 1.005-<=1.02 5 [facility] Comment on above: Performed By: #### C MP, LIPID, TSH, T7, BNP #### [facility] [address] [place] [address] Dr. Jc Norrsi UA PROTEIN Negative Normal NEGATIVE/ TRACE [facility] Comment on above: Performed By: #### C MP, LIPID, TSH, T7, BNP #### [facility] [address] [place] [address] Dr. Jc Norris UR MICRO IND INDICATED Normal [facility] Comment on above: Performed By: #### C MP, LIPID, TSH, T7, BNP #### [facility] [address] [place] [address] Dr. Jc Norris Urobilinogen Qn (U) 0.2 {Diamond'U}/dL Normal 0.2 - 1. 0 [facility] Comment on above: Performed By: #### C MP, LIPID, TSH, T7, BNP #### [facility] [address] [place] [address] Dr. Jc Norris URon 04-05-2022 , QUAL Negative Normal NEGATIVE [facility] Comment on above: Performed By: #### C MP, LIPID, TSH, T7, BNP #### [facility] [address] [place] [address] Dr. Jc Norris URINE MICROSCOPIC ONLYon BACTERIA MODERATE Abnormal NONE SEEN [facility] Comment on above: Performed By: #### C MP, LIPID, TSH, T7, BNP #### [facility] [address] [place] [address] Dr. Jc Norris Bacteria identified Cx Nom (U) INDICATED Normal [facility] Comment on above: Performed By: #### C MP, LIPID, TSH, T7, BNP #### [facility] [address] [place] [address] Dr. Jc Norris CAST NONE SEEN Normal NONE SEEN [facility] Comment on above: Performed By: #### C MP, LIPID, TSH, T7, BNP #### [facility] [address] [address] [address] Jc Norris Crystals LM Nom (Urine sed) NONE SEEN Normal NONE SEEN [facility] Comment on above: Performed By: #### C MP, LIPID, TSH, T7, BNP #### [facility] [address] [address] [address] Jc Norris Epithelial cells LM Ql (Urine sed) FEW Abnormal NONE SEEN /RARE [facility] Comment on above: Performed By: #### C MP, LIPID, TSH, T7, BNP #### [facility] [address] [address] [address] Jc Norris MUCOUS TRACE Abnormal NONE SEEN [facility] Comment on above: Performed By: #### C MP, LIPID, TSH, T7, BNP #### [facility] [address] [address] [address] Jc Norris RBC 50-75 Abnormal 0-2 [facility] Comment on above: Performed By: #### C MP, LIPID, TSH, T7, BNP #### [facility] [address] [address] [address] Jc Norris WBC 75-100 Abnormal NONE SEEN [facility] Comment on above: Performed By: #### C MP, LIPID, TSH, T7, BNP #### [facility] [address] [place] [address] Dr. Jc Norris MRI [place] WO CONon 03-07-19 23 MRI [facility] WO CON EXAMINATION: MRI [facility] WO CON HISTORY: Lumbago with sciatica COMPARISON: [...] Date: 2022-03-07 06:17 Normal [facility] CARDIAC KERI 3-6on 2 CK [Catalytic activity/Vol] 64 U/L Normal 26-192 [facility] Comment on above: Performed By: #### C MP, LIPID, TSH, T7, BNP #### [facility] [address] [place] [address] Dr. Jc Norris CK.MB [Mass/Vol] 0.81 ng/mL Normal <=3.60 [facility] Comment on above: Performed By: #### C MP, LIPID, TSH, T7, BNP #### [facility] [address] [place] [address] Dr. Jc Norris HSTROP 4.3 pg/mL Normal 4.0-51.3 [facility] Comment on above: Result Comment: CUT- OFF POINTS HAVE BEEN ESTABLISHED BASED ON THE FOURTH UNIVERSAL DEFINITIONS OF MYOCARDIAL INFARCTION. THE UPPER REFERENCE LIMIT (URL) OF TROPONIN, DEFINED THE 99TH PERCENTILE OF cTnI DISTRIBUTION IN A REFERENCE POPULATION, HAS BEEN CONFIRMED THE DECISION THRESHOLD FOR WI DIAGNOSIS. Performed By: #### C MP, LIPID, TSH, T7, BNP #### [facility] [address] [place] [address] Dr. Jc Norris CARDIAC KERI ADMITon 022 CK [Catalytic activity/Vol] 80 U/L Normal 26-192 [facility] Comment on above: Performed By: #### C BC #### [facility] [address] [place] [address] Dr. Jc Norris CK.MB [Mass/Vol] 0.89 ng/mL Normal <=3.60 [facility] Comment on above: Performed By: #### C BC #### [facility] [address] [place] [address] Dr. Jc Norris HSTROP 4.3 pg/mL Normal 4.0-51.3 [facility] Comment on above: Result Comment: CUT- OFF POINTS HAVE BEEN ESTABLISHED BASED ON THE FOURTH UNIVERSAL DEFINITIONS OF MYOCARDIAL INFARCTION. THE UPPER REFERENCE LIMIT (URL) OF TROPONIN, DEFINED THE 99TH PERCENTILE OF cTnI DISTRIBUTION IN A REFERENCE POPULATION, HAS BEEN CONFIRMED THE DECISION THRESHOLD FOR WI DIAGNOSIS. Performed By: #### C BC #### [facility] [address] [place] [address] Dr. Jc Norris ANITHA 21 ng/mL Normal 9-82 [facility] Comment on above: Performed By: #### C BC #### [facility] [address] [place] [address] Dr. Jc Norris CBC AUTO DIFFon 12-26-2021 BASO # 0.1 103/ul Normal 0.0-0.1 [facility] Comment on above: Performed By: #### C BC #### [facility] [address] [place] [address] Dr. Jc Norris Basophils/100 WBC (Bld) 0.5 % Normal 0.2-2.0 [facility] Comment on above: Performed By: #### C BC #### [facility] [address] [place] [address] Dr. Jc Norris EO # 0.3 103/ul Normal 0.0-0.7 [facility] Comment on above: Performed By: #### C BC #### [facility] [address] [place] [address] Dr. Jc Norris Eosinophils/100 WBC (Bld) 2.9 % Normal 0.9-7.0 [facility] Comment on above: Performed By: #### C BC #### [facility] [address] [place] [address] Dr. Jc Norris Erythrocyte distribution width (RBC) [Ratio] 12.7 % Normal 11.0-15.0 [facility] Comment on above: Performed By: #### C BC #### [facility] [address] [place] [address] Dr. Jc Norris Hematocrit (Bld) [Volume fraction] 40.1 % Normal 36.0-48.0 [facility] Comment on above: Performed By: #### C BC #### [facility] [address] [place] [address] Dr. Jc Norris Hemoglobin (Bld) [Mass/Vol] 13.4 g/dL Normal 12.0-16.0 [facility] Comment on above: Performed By: #### C BC #### [facility] [address] [place] [address] Dr. Jc Norris IG # 0.03 10e3/ul Normal 0.00-0.03 [facility] Comment on above: Performed By: #### C BC #### [facility] [address] [place] [address] Dr. Jc Norris IG % 0.3 % Normal 0.0-0.5 [facility] Comment on above: Performed By: #### C BC #### [facility] [address] [place] [address] Dr. Jc Norris LYMPH # 3.4 103/ul Normal 1.2-3.8 [facility] Comment on above: Performed By: #### C BC #### [facility] [address] [place] [address] Dr. Jc Norris Lymphocytes/100 WBC (Bld) 35.9 % Normal 20.5-60.0 [facility] Comment on above: Performed By: #### C BC #### [facility] [address] [place] [address] Dr. Jc Norris MANUAL DIFF REQ NO Normal [facility] Comment on above: Performed By: #### C BC #### [facility] [address] [place] [address] Dr. Jc Norris MCH (RBC) [Entitic mass] 28.8 pg Normal 26.7-34.0 [facility] Comment on above: Performed By: #### C BC #### [facility] [address] [place] [address] Dr. Jc Norris MCHC (RBC) [Mass/Vol] 33.4 g/dL Normal 29.9-35.2 [facility] Comment on above: Performed By: #### C BC #### [facility] [address] [place] [address] Dr. Jc Norris MCV (RBC) [Entitic vol] 86.1 fL Normal 81.0-99.0 [facility] Comment on above: Performed By: #### C BC #### [facility] [address] [place] [address] Dr. Jc Norris MONO # 0.9 103/ul Critically high 0.3-0.8 [facility] Comment on above: Performed By: #### C BC #### [facility] [address] [place] [address] Dr. Jc Norris Monocytes/100 WBC (Bld) 9.1 % Normal 1.7-12.0 [facility] Comment on above: Performed By: #### C BC #### [facility] [address] [place] [address] Dr. Jc Norris NEUT # 4.8 103/ul Normal 1.4-6.5 [facility] Comment on above: Performed By: #### C BC #### [facility] [address] [place] [address] Dr. Jc Norris Neutrophils/100 WBC (Bld) 51.3 % Normal 43.0-75.0 [facility] Comment on above: Performed By: #### C BC #### [facility] [address] [place] [address] Dr. Jc Norris Platelet mean volume (Bld) [Entitic vol] 10.9 fL Normal 9.5-13.5 [facility] Comment on above: Performed By: #### C BC #### [facility] [address] [place] [address] Dr. Jc Norris PLT 256 103/ul Normal 150-450 [facility] Comment on above: Performed By: #### C BC #### [facility] [address] [place] [address] Dr. Jc Norris RBC 4.66 106/ul Normal 4.20-5.40 [facility] Comment on above: Performed By: #### C BC #### [facility] [address] [address] [address] Jc Norris WBC 9.4 103/ul Normal 4.0-11.0 [facility] Comment on above: Performed By: #### C BC #### [facility] [address] [address] [address] Jc Norris D-DIMERon 12-26-2021 D-DIMER 0.22 mg/L FEU Normal <=0.59 [facility] Comment on above: Performed By: #### C BC #### [facility] [address] [address] [address] Jc Norris D-DIMER COMMENTS SEE BELOW Normal [facility] Comment on above: Result Comment: Incr eases [...] By: #### C BC #### [facility] [address] [place] [address] Dr. Jc Norris PROF CHEM 8 (BAS METB)on Anion gap [Moles/Vol] 8.7 mmol/L Normal [facility] Comment on above: Performed By: #### C BC #### [facility] [address] [place] [address] Dr. Jc Norris Calcium [Mass/Vol] 9.2 mg/dL Normal 8.5-10.[address] [facility] Comment on above: Performed By: #### C BC #### [facility] [address] [place] [address] Dr. Jc Norris Chloride [Moles/Vol] 105 mmol/L Normal 98-107 [facility] Comment on above: Performed By: #### C BC #### [facility] [address] [address] [address] Jc Norris CO2 [Moles/Vol] 27.9 mmol/L Normal 21.0-32.0 [facility] Comment on above: Performed By: #### C BC #### [facility] [address] [address] [address] Jc Norris Creatinine [Mass/Vol] 0.67 mg/dL Normal 0.55-1.02 [facility] Comment on above: Performed By: #### C BC #### [facility] [address] [address] [address] Jc Norris EGFR-AF CYMRO >60 Normal >=60 [facility] Comment on above: Performed By: #### C BC #### [facility] [address] [place] [address] Dr. Jc Norris EGFR-NON AF CYMRO >60 Normal >=60 [facility] Comment on above: Performed By: #### C BC #### [facility] [address] [address] [address] Jc Norris Glucose [Mass/Vol] 86 mg/dL Normal 74-[address] [facility] Comment on above: Performed By: #### C BC #### [facility] [address] [address] [address] Jc Norris Potassium [Moles/Vol] 3.6 mmol/L Normal 3.5-5.1 [facility] Comment on above: Performed By: #### C BC #### [facility] [address] [address] [address] Jc Norris Sodium [Moles/Vol] 138 mmol/L Normal 136-[address] [facility] Comment on above: Performed By: #### C BC #### [facility] [address] [place] [address] Dr. Jc Norris Urea nitrogen [Mass/Vol] 11.0 mg/dL Normal 7.0-18.0 [facility] Comment on above: Performed By: #### C BC #### [facility] [address] [place] [address] Dr. Jc Norris Urea nitrogen/Creatinine [Mass ratio] 16.4 mg/mg Normal [facility] Comment on above: Performed By: #### C #### [facility] [address] [address] [address] Jc Norris XR CHEST 2 Von [...] by: ALEK MONTELONGO Date: 2021-12-25 23:54 Normal [facility] ECHOCARDIO M/2D COMPLETEon 1 ECHOCARDIO M/2D COMPLETE Patient: MARIANGEL CORTES Exam Date: 12/06/2021 : 1995 Gender:F Ordering : DR LONA GOMEZ . Admission #: [id number] Family : Order #: [id number] CLICK HERE TO VIEW EXAM ECHOCARDIOGRAM REPORT [...] 12/11/2021 at 15:55 Normal [facility] BNPon 11-24-2021 Natriuretic peptide B (Bld) [Mass/Vol] 7.0 pg/mL Normal <=450.0 [facility] Comment on above: Performed By: #### C MP, LIPID, TSH, T7, BNP #### [facility] [address] [place], [place] [address] Dr. Jc Norris CBC AUTO DIFFon 11-24-2021 BASO # 0.0 103/ul Normal 0.0-0.1 [facility] Comment on above: Performed By: #### C BC ####[facility] [address] [id number] Norris Basophils/100 WBC (Bld) 0.3 % Normal 0.2-2.0 [facility] Comment on above: Performed By: #### C BC ####[facility] [address] [place] [id number] Norris EO # 0.1 103/ul Normal 0.0-0.7 [facility] Comment on above: Performed By: #### C BC ####[facility] [address] [place] [id number] Norris Eosinophils/100 WBC (Bld) 2.1 % Normal 0.9-7.0 [facility] Comment on above: Performed By: #### C BC ####[facility] [address] [place] [id number] Norris Erythrocyte distribution width (RBC) [Ratio] 12.9 % Normal 11.0-15.0 [facility] Comment on above: Performed By: #### C BC ####[facility] [address] [place] [address]Dr. Jc Norris Hematocrit (Bld) [Volume fraction] 42.3 % Normal 36.0-48.0 [facility] Comment on above: Performed By: #### C BC ####[facility] [address] [place] [address]Dr. Jc Norris Hemoglobin (Bld) [Mass/Vol] 13.6 g/dL Normal 12.0-16.0 [facility] Comment on above: Performed By: #### C BC ####[facility] [address] [place], [place] [address]Dr. Kathleenkendall Norris IG # 0.03 10e3/ul Normal 0.00-0.03 [facility] Comment on above: Performed By: #### C BC ####[facility] N[address] [place], [place] [address]Dr. Jc Norris IG % 0.5 % Normal 0.0-0.5 [facility] Comment on above: Performed By: #### C BC ####[facility] Feiolapsbr[address] [place], [place] [address]DrEric Jc Jr LYMPH # 1.7 103/ul Normal 1.2-3.8 [facility] Comment on above: Performed By: #### C BC ####[facility] Factm[address]tdz[address] [place], [place] [address]DrEric Kathleenkendall Norris Lymphocytes/100 WBC (Bld) 29.9 % Normal 20.5-60.0 [facility] Comment on above: Performed By: #### C BC ####[facility] [address] [place], [place] [address]DrEric Kathleenkendall Norris MANUAL DIFF REQ NO Normal [facility] Comment on above: Performed By: #### C BC ####[facility] [address] [place] [address]Dr. Jc Norris MCH (RBC) [Entitic mass] 28.7 pg Normal 26.7-34.0 [facility] Comment on above: Performed By: #### C BC ####[facility] [address] [place] [id number]. Jc Jr MCHC (RBC) [Mass/Vol] 32.2 g/dL Normal 29.9-35.2 [facility] Comment on above: Performed By: #### C BC ####[facility] [address] [place] [id number] Norris MCV (RBC) [Entitic vol] 89.2 fL Normal 81.0-99.0 [facility] Comment on above: Performed By: #### C BC ####[facility] Q[address] [place], [place] [id number] Norris MONO # 0.4 103/ul Normal 0.3-0.8 [facility] Comment on above: Performed By: #### C BC ####[facility] Vib[address] [place], [place] [address]Dr. Jc Norris Monocytes/100 WBC (Bld) 7.4 % Normal 1.7-12.0 [facility] Comment on above: Performed By: #### C BC ####[facility] [address] [place], [place] [id number]. Jc Norris NEUT # 3.5 103/ul Normal 1.4-6.5 [facility] Comment on above: Performed By: #### C BC ####[facility] [address] [place], [place] [id number] Norris Neutrophils/100 WBC (Bld) 59.8 % Normal 43.0-75.0 [facility] Comment on above: Performed By: #### C BC ####[facility] Zqrzt[address] [place], [place] [id number] Norris Platelet mean volume (Bld) [Entitic vol] 10.3 fL Normal 9.5-13.5 [facility] Comment on above: Performed By: #### C BC ####[facility] [address] [place], [place] [id number] Norris PLT 241 103/ul Normal 150-450 [facility] Comment on above: Performed By: #### C BC ####[facility] [address] [place] [address]Dr. Jc Norris RBC 4.74 106/ul Normal 4.20-5.40 [facility] Comment on above: Performed By: #### C BC ####[facility] [address] [id number]. Jc Norris WBC 5.8 103/ul Normal 4.0-11.0 [facility] Comment on above: Performed By: #### C BC ####[facility] [address] [place] [address]Dr. Jc Norris FREE THYROXINE INDEX T7on FTI 2.00 Normal 1.30-4.50 [facility] Comment on above: Performed By: #### C MP, LIPID, TSH, T7, BNP #### [facility] [address] [address] [address] Jc Norris T3U 29.0 % Critically low 30.0-39.0 [facility] Comment on above: Performed By: #### C MP, LIPID, TSH, T7, BNP #### [facility] [address] [address] [address] Jc Norris T4 [Mass/Vol] 6.90 ug/dL Normal 4.80-13.90 [facility] Comment on above: Performed By: #### C MP, LIPID, TSH, T7, BNP #### [facility] [address] [address] [address] Jc Norris GLYCOHEMOGLOBIN A1Con 2021 ADA RECOMMENDATION SEE BELOW Normal [facility] Comment on above: Result Comment: ADA RECOMMENDED LIMIT 4.0 - 6.0 ADA THERAPEUTIC TARGET < 7.0 ACTION SUGGESTED > 7.0 Performed By: #### A 1C ####[facility] [address] [place] [address]DrEric Norris Glucose [Mass/Vol] 103 mg/dL Normal [facility] Comment on above: Performed By: #### A 1C ####[facility] [address] [place] [address]DrEric Norris HbA1c (Bld) [Mass fraction] 5.2 % Normal 4.5-6.2 [facility] Comment on above: Performed By: #### A 1C ####[facility] [address] [place] [address]Dr. Jc Norris IRONon 11-24-2021 Iron [Mass/Vol] 45.0 ug/dL Critically low 50.0-170.0 [facility] Comment on above: Performed By: #### I KINA ####[facility] [address] [place] [address]Dr. Jc Norris LIPID PROFILEon 11-24-2021 CHOL-HDL RATIO NORM SEE BELOW Normal [facility] Comment on above: Result Comment: 3.3 - 4.4 LOW RISK 4.4 - 7.1 AVERAGE RISK 7.1 - 11.0 MODERATE RISK >11.0 HIGH RISK Performed By: #### C MP, LIPID, TSH, T7, BNP #### [facility] [address] [place] [address] Dr. Jc Norris Cholesterol [Mass/Vol] 169 mg/dL Normal <=200 [facility] Comment on above: Performed By: #### C MP, LIPID, TSH, T7, BNP #### [facility] [address] [place] [address] Dr. Jc Norris Cholesterol in HDL [Mass/Vol] 44 mg/dL Normal 40-60 [facility] Comment on above: Performed By: #### C MP, LIPID, TSH, T7, BNP #### [facility] [address] [place] [address] Dr. Jc Norris Cholesterol in LDL [Mass/Vol] 106.2 mg/dL Normal [facility] Comment on above: Performed By: #### C MP, LIPID, TSH, T7, BNP #### [facility] [address] [address] [address] Jc Norris Cholesterol.total/Chol esterol in HDL [Mass ratio] 3.8 {ratio} Normal [facility] Comment on above: Performed By: #### C MP, LIPID, TSH, T7, BNP #### [facility] [address] [address] [address] Jc Norris HDL NORMAL > or = 60 mg/dl - LO W CARDIOVASCULAR RISK <40 mg/dl - HIGH CARDIOVASCULAR RISK Normal [facility] Comment on above: Performed By: #### C MP, LIPID, TSH, T7, BNP #### [facility] [address] [address] [address] Jc Norris LDL CALC NORMAL SEE BELOW Normal [facility] Comment on above: Result Comment: <100 mg/dl OPTIMAL 100 - 129 mg/dl NEAR OR ABOVE OPTIMAL 130 - 159 mg/dl BORDERLINE HIGH 160 - 189 mg/dl HIGH >190 mg/dl VERY HIGH Performed By: #### C MP, LIPID, TSH, T7, BNP #### [facility] [address] [address] [address] Jc Norris Triglyceride [Mass/Vol] 94 mg/dL Normal <=150 [facility] Comment on above: Performed By: #### C MP, LIPID, TSH, T7, BNP #### [facility] [address] [address] [address] Jc Norris VLDL CALC 18.8 mg/dL Normal [facility] Comment on above: Performed By: #### C MP, LIPID, TSH, T7, BNP #### [facility] [address] [address] [address] Jc Norris PROF 14(COMP METB)on 022 Albumin [Mass/Vol] 3.8 g/dL Normal 3.4-5.0 [facility] Comment on above: Performed By: #### C MP, LIPID, TSH, T7, BNP #### [facility] [address] [address] [address] Jc Norris Albumin/Globulin [Mass ratio] 1.1 {ratio} Normal [facility] Comment on above: Performed By: #### C MP, LIPID, TSH, T7, BNP #### [facility] [address] [address] [address] Jc Norris ALP [Catalytic activity/Vol] 109 U/L Normal 46-116 [facility] Comment on above: Performed By: #### C MP, LIPID, TSH, T7, BNP #### [facility] [address] [address] [address] Jc Norris ALT [Catalytic activity/Vol] 20 U/L Normal 14-59 [facility] Comment on above: Performed By: #### C MP, LIPID, TSH, T7, BNP #### [facility] [address] [place] [address] Dr. Jc Norris Anion gap [Moles/Vol] 8.3 mmol/L Normal [facility] Comment on above: Performed By: #### C MP, LIPID, TSH, T7, BNP #### [facility] [address] [place] [address] Dr. Jc Norris AST [Catalytic activity/Vol] 12 U/L Critically low 15-37 [facility] Comment on above: Performed By: #### C MP, LIPID, TSH, T7, BNP #### [facility] [address] [place] [address] Dr. Jc Norris Bilirubin [Mass/Vol] 0.3 mg/dL Normal 0.2-1.0 [facility] Comment on above: Performed By: #### C MP, LIPID, TSH, T7, BNP #### [facility] [address] [place] [address] Dr. Jc Norris Calcium [Mass/Vol] 8.9 mg/dL Normal 8.5-10.1 [facility] Comment on above: Performed By: #### C MP, LIPID, TSH, T7, BNP #### [facility] [address] [place] [address] Dr. Jc Norris Chloride [Moles/Vol] 105 mmol/L Normal 98-107 [facility] Comment on above: Performed By: #### C MP, LIPID, TSH, T7, BNP #### [facility] [address] [place] [address] Dr. Jc Norris CO2 [Moles/Vol] 29.8 mmol/L Normal 21.0-32.0 [facility] Comment on above: Performed By: #### C MP, LIPID, TSH, T7, BNP #### [facility] [address] [address] [address] Jc Norris Creatinine [Mass/Vol] 0.67 mg/dL Normal 0.55-1.02 [facility] Comment on above: Performed By: #### C MP, LIPID, TSH, T7, BNP #### [facility] [address] [address] [address] Jc Norris EGFR-AF CYMRO >60 Normal >=60 [facility] Comment on above: Performed By: #### C MP, LIPID, TSH, T7, BNP #### [facility] [address] [address] [address] Jc Norris EGFR-NON AF CYMRO >60 Normal >=60 [facility] Comment on above: Performed By: #### C MP, LIPID, TSH, T7, BNP #### [facility] [address] [place] [address] Dr. Jc Norris Globulin (S) [Mass/Vol] 3.5 g/dL Normal [facility] Comment on above: Performed By: #### C MP, LIPID, TSH, T7, BNP #### [facility] [address] [place] [address] Dr. Jc Norris Glucose [Mass/Vol] 107 mg/dL Critically high 74-[address] [facility] Comment on above: Performed By: #### C MP, LIPID, TSH, T7, BNP #### [facility] [address] [address] [address] Jc Norris Potassium [Moles/Vol] 4.1 mmol/L Normal 3.5-5.1 [facility] Comment on above: Performed By: #### C MP, LIPID, TSH, T7, BNP #### [facility] [address] [address] [address] Jc Norris Protein [Mass/Vol] 7.3 g/dL Normal 6.4-8.2 [facility] Comment on above: Performed By: #### C MP, LIPID, TSH, T7, BNP #### [facility] [address] [address] [address] Jc Norris Sodium [Moles/Vol] 139 mmol/L Normal 136-145 [facility] Comment on above: Performed By: #### C MP, LIPID, TSH, T7, BNP #### [facility] [address] [place] [address] Dr. Jc Norris Urea nitrogen [Mass/Vol] 11.0 mg/dL Normal 7.0-18.0 [facility] Comment on above: Performed By: #### C MP, LIPID, TSH, T7, BNP #### [facility] [address] [place] [address] Dr. Jc Norris Urea nitrogen/Creatinine [Mass ratio] 16.4 mg/mg Normal [facility] Comment on above: Performed By: #### C MP, LIPID, TSH, T7, BNP #### [facility] [address] [place] [address] Dr. Jc Norris TSHon 11-24-2021 TSH 1.465 uIU/mL Normal 0.358-3.740 [facility] Comment on above: Performed By: #### C MP, LIPID, TSH, T7, BNP #### [facility] [address] [place] [address] Dr. Jc Norris T4 LABCORPon 10-31-2021 T4 [Mass/Vol] 5.8 ug/dL Normal 4.5-12.0 [facility] Comment on above: Performed By: #### C BC #### [facility] [address] [place] [address] Dr. Jc Norris CBC AUTO DIFFon 10-30-2021 BASO # 0.1 103/ul Normal 0.0-0.1 [facility] Comment on above: Performed By: #### C BC #### [facility] [address] [place] [address] Dr. Jc Norris Basophils/100 WBC (Bld) 0.4 % Normal 0.2-2.0 [facility] Comment on above: Performed By: #### C BC #### [facility] [address] [place] [address] Dr. Jc Norris EO # 0.2 103/ul Normal 0.0-0.7 [facility] Comment on above: Performed By: #### C BC #### [facility] [address] [place] [address] Dr. Jc Norris Eosinophils/100 WBC (Bld) 1.4 % Normal 0.9-7.0 [facility] Comment on above: Performed By: #### C BC #### [facility] [address] [place] [address] Dr. Jc Norris Erythrocyte distribution width (RBC) [Ratio] 13.0 % Normal 11.0-15.0 [facility] Comment on above: Performed By: #### C BC #### [facility] [address] [place] [address] Dr. Jc Norris Hematocrit (Bld) [Volume fraction] 42.4 % Normal 36.0-48.0 [facility] Comment on above: Performed By: #### C BC #### [facility] [address] [place] [address] Dr. Jc Norris Hemoglobin (Bld) [Mass/Vol] 13.2 g/dL Normal 12.0-16.0 [facility] Comment on above: Performed By: #### C BC #### [facility] [address] [place] [address] Dr. Jc Norris IG # 0.18 10e3/ul Critically high 0.00-0.03 [facility] Comment on above: Performed By: #### C BC #### [facility] [address] [place] [address] Dr. Jc Norris IG % 1.4 % Critically high 0.0-0.5 [facility] Comment on above: Performed By: #### C BC #### [facility] [address] [place] [address] Dr. Jc Norris LYMPH # 4.2 103/ul Critically high 1.2-3.8 [facility] Comment on above: Performed By: #### C BC #### [facility] [address] [place] [address] Dr. Jc Norris Lymphocytes/100 WBC (Bld) 31.5 % Normal 20.5-60.0 [facility] Comment on above: Performed By: #### C BC #### [facility] [address] [place] [address] Dr. Jc Norris MANUAL DIFF REQ NO Normal [facility] Comment on above: Performed By: #### C BC #### [facility] [address] [place] [address] Dr. Jc Norris MCH (RBC) [Entitic mass] 27.9 pg Normal 26.7-34.0 [facility] Comment on above: Performed By: #### C BC #### [facility] [address] [place] [address] Dr. Jc Norris MCHC (RBC) [Mass/Vol] 31.1 g/dL Normal 29.9-35.2 [facility] Comment on above: Performed By: #### C BC #### [facility] [address] [place] [address] Dr. Jc Norris MCV (RBC) [Entitic vol] 89.6 fL Normal 81.0-99.0 [facility] Comment on above: Performed By: #### C BC #### [facility] [address] [place] [address] Dr. Jc Norris MONO # 1.3 103/ul Critically high 0.3-0.8 [facility] Comment on above: Performed By: #### C BC #### [facility] [address] [place] [address] Dr. Jc Norris Monocytes/100 WBC (Bld) 9.9 % Normal 1.7-12.0 [facility] Comment on above: Performed By: #### C BC #### [facility] [address] [place] [address] Dr. Jc Norris NEUT # 7.4 103/ul Critically high 1.4-6.5 [facility] Comment on above: Performed By: #### C BC #### [facility] [address] [place] [address] Dr. Jc Norris Neutrophils/100 WBC (Bld) 55.4 % Normal 43.0-75.0 [facility] Comment on above: Performed By: #### C BC #### [facility] [address] [place] [address] Dr. Jc Norris Platelet mean volume (Bld) [Entitic vol] 10.2 fL Normal 9.5-13.5 [facility] Comment on above: Performed By: #### C BC #### [facility] [address] [place] [address] Dr. Jc Norris PLT 265 103/ul Normal 150-450 [facility] Comment on above: Performed By: #### C BC #### [facility] [address] [place] [address] Dr. Jc Norris RBC 4.73 106/ul Normal 4.20-5.40 [facility] Comment on above: Performed By: #### C BC #### [facility] [address] [place] [address] Dr. Jc Norris WBC 13.3 103/ul Critically high 4.0-11.0 [facility] Comment on above: Performed By: #### C BC #### [facility] [address] [place] [address] Dr. Jc Norris FREE T3on 10-30-2021 FREE T3 2.18 pg/mlL Normal 2.18-3.98 [facility] Comment on above: Performed By: #### C MP, LIPID, TSH, T7, BNP #### [facility] [address] [place] [address] Dr. Jc Norris PROF 14(COMP METB)on 022 Albumin [Mass/Vol] 3.6 g/dL Normal 3.4-5.0 [facility] Comment on above: Performed By: #### C MP, LIPID, TSH, T7, BNP #### [facility] [address] [place] [address] Dr. Jc Norris Albumin/Globulin [Mass ratio] 1.1 {ratio} Normal [facility] Comment on above: Performed By: #### C MP, LIPID, TSH, T7, BNP #### [facility] [address] [place] [address] Dr. Jc Norris ALP [Catalytic activity/Vol] 93 U/L Normal 46-116 [facility] Comment on above: Performed By: #### C MP, LIPID, TSH, T7, BNP #### [facility] [address] [place] [address] Dr. Jc Norris ALT [Catalytic activity/Vol] 22 U/L Normal 14-59 [facility] Comment on above: Performed By: #### C MP, LIPID, TSH, T7, BNP #### [facility] [address] [place] [address] Dr. Jc Norris Anion gap [Moles/Vol] 9.4 mmol/L Normal [facility] Comment on above: Performed By: #### C MP, LIPID, TSH, T7, BNP #### [facility] [address] [place] [address] Dr. Jc Norris AST [Catalytic activity/Vol] 13 U/L Critically low 15-37 [facility] Comment on above: Performed By: #### C MP, LIPID, TSH, T7, BNP #### [facility] [address] [place] [address] Dr. Jc Norris Bilirubin [Mass/Vol] 0.3 mg/dL Normal 0.2-1.0 [facility] Comment on above: Performed By: #### C MP, LIPID, TSH, T7, BNP #### [facility] [address] [place] [address] Dr. Jc Norris Calcium [Mass/Vol] 9.0 mg/dL Normal 8.5-10.1 [facility] Comment on above: Performed By: #### C MP, LIPID, TSH, T7, BNP #### [facility] [address] [place] [address] Dr. Jc Norris Chloride [Moles/Vol] 102 mmol/L Normal 98-107 [facility] Comment on above: Performed By: #### C MP, LIPID, TSH, T7, BNP #### [facility] [address] [place] [address] Dr. Jc Norris CO2 [Moles/Vol] 32.4 mmol/L Critically high 21.0-32.0 [facility] Comment on above: Performed By: #### C MP, LIPID, TSH, T7, BNP #### [facility] [address] [address] [address] Jc Norris Creatinine [Mass/Vol] 0.67 mg/dL Normal 0.55-1.02 [facility] Comment on above: Performed By: #### C MP, LIPID, TSH, T7, BNP #### [facility] [address] [place] [address] Dr. Jc Norris EGFR-AF CYMRO >60 Normal >=60 [facility] Comment on above: Performed By: #### C MP, LIPID, TSH, T7, BNP #### [facility] [address] [place] [address] Dr. Jc Norris EGFR-NON AF CYMRO >60 Normal >=60 [facility] Comment on above: Performed By: #### C MP, LIPID, TSH, T7, BNP #### [facility] [address] [place] [address] Dr. Jc Norris Globulin (S) [Mass/Vol] 3.2 g/dL Normal [facility] Comment on above: Performed By: #### C MP, LIPID, TSH, T7, BNP #### [facility] [address] [place] [address] Dr. Jc Norris Glucose [Mass/Vol] 94 mg/dL Normal 74-106 [facility] Comment on above: Performed By: #### C MP, LIPID, TSH, T7, BNP #### [facility] [address] [place] [address] Dr. Jc Norris Potassium [Moles/Vol] 3.7 mmol/L Normal 3.5-5.1 [facility] Comment on above: Performed By: #### C MP, LIPID, TSH, T7, BNP #### [facility] [address] [place] [address] Dr. Jc Norris Protein [Mass/Vol] 6.8 g/dL Normal 6.4-8.[address] [facility] Comment on above: Performed By: #### C MP, LIPID, TSH, T7, BNP #### [facility] [address] [address] [address] Jc Norris Sodium [Moles/Vol] 140 mmol/L Normal 136-145 [facility] Comment on above: Performed By: #### C MP, LIPID, TSH, T7, BNP #### [facility] [address] [address] [address] Jc Norris Urea nitrogen [Mass/Vol] 16.0 mg/dL Normal 7.0-18.0 [facility] Comment on above: Performed By: #### C MP, LIPID, TSH, T7, BNP #### [facility] [address] [address] [address] Jc Norris Urea nitrogen/Creatinine [Mass ratio] 23.9 mg/mg Normal [facility] Comment on above: Performed By: #### C MP, LIPID, TSH, T7, BNP #### [facility] [address] [address] [address] Jc Norris TSHon 10-30-2021 TSH 2.046 uIU/mL Normal 0.358-3.740 [facility] Comment on above: Performed By: #### C MP, LIPID, TSH, T7, BNP #### [facility] [address] [address] [address] Jc Norris Body fluid albumin measureme nt (mass/volume)Ordered By: Anjali Hendrix on 10-06-2021 Albumin (Body fld) [Mass/Vol] 3.9 g/dL 3.2-5.5 [facility] Cholesterol in LDL Calc [Mas s/Vol]Ordered By: Anjali Hendrix on 10-06-2021 Cholesterol in LDL [Mass/Vol] 106 mg/dL 0-100 [facility] Comment on above: LDL ATP III CLASSIFI CATION LDL less than 100 mg/dL Optimal LDL 100-129 mg/dL Near or above optimal LDL 130-159 mg/dL Borderline high LDL 160-189 mg/dL High LDL greater than 189 mg/dL Very high Cholesterol in VLDL Calc [Ma ss/Vol]Ordered By: Anjali Hendrix on 10-06-2021 Cholesterol in VLDL [Mass/Vol] 22 mg/dL [facility] Comprehensive Metabolic Empo n 10-06-2021 Albumin [Mass/Vol] 3.9 g/dL Normal 3.2-5.5 [facility] Comment on above: Performed By: #### E BS LIPID, EBS A1C, EBS CMP #### [facility] [address] ALT [Catalytic activity/Vol] 19 U/L Normal 10-60 [facility] Comment on above: Performed By: #### E BS LIPID, EBS A1C, EBS CMP #### [facility] [address] Estimated GFR ( Amira > 60 Normal [facility] Comment on above: Result Comment: GFR estimated reference range: According to KDOQI guidelines, <60 ml/min/1.73m2 is sufficient to diagnose a patient with chronic kidney disease. Performed By: #### E BS LIPID, EBS A1C, EBS CMP #### [facility] [address] Estimated GFR (Non- Am > 60 [facility] Comment on above: Performed By: #### E BS LIPID, EBS A1C, EBS CMP #### [facility] [address] Comprehensive Metabolic EmpO rdered By: Anjali Hendrix on 10-06-2021 Albumin/Globulin [Mass ratio] 1.4 {ratio} [facility] Comment on above: Performed By: #### E BS LIPID, EBS A1C, EBS CMP #### [facility] [address] [place] [address] [place] ALP [Catalytic activity/Vol] 76 U/L Normal 32-92 [facility] Comment on above: Performed By: #### E BS LIPID, EBS A1C, EBS CMP #### [facility] [address] [place] [id number] [place] AST [Catalytic activity/Vol] 22 U/L Normal 10-42 [facility] Comment on above: Performed By: #### E BS LIPID, EBS A1C, EBS CMP #### [facility] [address] [place] [address] [place] Bilirubin [Mass/Vol] 0.4 mg/dL Normal 0.3-1.2 [facility] Comment on above: Performed By: #### E BS LIPID, EBS A1C, EBS CMP #### [facility] [address] Calcium [Mass/Vol] 9.4 mg/dL Normal 8.2-10.2 [facility] Comment on above: Performed By: #### E BS LIPID, EBS A1C, EBS CMP #### [facility] [address] Chloride [Moles/Vol] 101 mmol/L Normal 95-114 [facility] Comment on above: Performed By: #### E BS LIPID, EBS A1C, EBS CMP #### [address] CO2 [Moles/Vol] 23.4 mmol/L Normal 22.0-30.0 [facility] Comment on above: Performed By: #### E BS LIPID, EBS A1C, EBS CMP #### [address] Creatinine [Mass/Vol] 0.66 mg/dL Normal 0.44-1.03 [facility] Comment on above: Performed By: #### E BS LIPID, EBS A1C, EBS CMP #### [address] Globulin (S) [Mass/Vol] 2.7 g/dL Normal [facility] Comment on above: Performed By: #### E BS LIPID, EBS A1C, EBS CMP #### [facility] [address] [place] [address] Glucose [Mass/Vol] 109 mg/dL High 70-100 [facility] Comment on above: Result Comment: ADA recommended reference range Performed By: #### E BS LIPID, EBS A1C, EBS CMP #### [facility] [address] [place] [address] ADA recommended refe rence range Potassium [Moles/Vol] 3.9 mmol/L Normal 3.5-5.1 [facility] Comment on above: Performed By: #### E BS LIPID, EBS A1C, EBS CMP #### [facility] [address] Protein [Mass/Vol] 6.6 g/dL Normal 6.1-7.9 [facility] Comment on above: Performed By: #### E BS LIPID, EBS A1C, EBS CMP #### [facility] [address] Sodium [Moles/Vol] 135 mmol/L Low 136-146 [facility] Comment on above: Performed By: #### E BS LIPID, EBS A1C, EBS CMP #### [facility] [address] Urea nitrogen [Mass/Vol] 11 mg/dL Normal 11-10 [facility] Comment on above: Performed By: #### E BS LIPID, EBS A1C, EBS CMP #### [address] EBS A1C with Estimated Ave G luon 10-06-2021 Glucose [Mass/Vol] 114 mg/dL Normal [facility] Comment on above: Result Comment: PERF ORMED BY: [place] [address] PATHOLOGIST FOOD CART ATTENDANT MARLEY CANO M.D. Performed By: #### E BS LIPID, EBS A1C, EBS CMP #### [address] EBS A1C with Estimated Ave G luOrdered By: Anjali Hendrix on 10-06-2021 HbA1c (Bld) [Mass fraction] 5.6 % Normal 4.3-5.6 [facility] Comment on above: Result Comment: Incr eased risk for diabetes: 5.7 - 6.4 diabetes: >6.4 glycemic control for adults with diabetes: <7.0 Performed By: #### E BS LIPID, EBS A1C, EBS CMP #### [facility] [address] Increased risk for d iabetes: 5.7 - 6.4 diabetes: >6.4 glycemic control for adults with diabetes: <7.0 Estimated glomerular filtrat ion rate (GFR) non- AmericanOrdered By: Anjali Hendrix on 10-06-2021 GFR/1.73 sq M.predicted among non-blacks MDRD (S/P/Bld) [Vol rate/Area] > 60 mL/Min [facility] Glucose mean value [Mass/vol ume] in Blood Estimated from glycated hemoglobinOrdered By: Anjali Hendrix on 10-06-2021 Average glucose Estimated from glycated hemoglobin (Bld) [Mass/Vol] 114 mg/dL [facility] Lipid ProfileOrdered By: Jayshree Hendrix on 10-06-2021 Cholesterol [Mass/Vol] 179 mg/dL Normal 140-200 [facility] Comment on above: Result Comment: Chol less than 200 mg/dl low risk Chol 201-239 mg/dl borderline risk Chol 240 mg/dl and greater high risk Performed By: #### E BS LIPID, EBS A1C, EBS CMP #### [facility] [address] Chol less than 200 m g/dl low risk Chol 201-239 mg/dl borderline risk Chol 240 mg/dl and greater high risk Cholesterol in HDL [Mass/Vol] 50 mg/dL Normal 35-85 [facility] Comment on above: Result Comment: HDL CHOL ATP-III CLASSIFICATION Cardiovascular Risk HDL > or equal to 60 mg/dL LOW HDL < 40 mg/dL HIGH Performed By: #### E BS LIPID, EBS A1C, EBS CMP #### [facility] [address] HDL CHOL ATP-III CLA SSIFICATION Cardiovascular Risk HDL > or equal to 60 mg/dL LOW HDL < 40 mg/dL HIGH Cholesterol.total/Chol esterol in HDL [Mass ratio] 3.6 {ratio} Normal <5.0 [facility] Comment on above: Result Comment: PERF ORMED BY: [facility] [address] [place] [address] PATHOLOGIST FOOD CART ATTENDANT MARLEY CANO M.D. Performed By: #### E BS LIPID, EBS A1C, EBS CMP #### [facility] [address] Lipid Profileon 10-06-2021 LDL Cholesterol,Calculated 106 mg/dL High 0-100 [facility] Comment on above: Result Comment: LDL ATP III CLASSIFICATION LDL less than 100 mg/dL Optimal LDL 100-129 mg/dL Near or above optimal LDL 130-159 mg/dL Borderline high LDL 160-189 mg/dL High LDL greater than 189 mg/dL Very high Performed By: #### E BS LIPID, EBS A1C, EBS CMP #### [facility] [address] Triglyceride w/Reflex 113 mg/dL Normal 35-149 [facility] Comment on above: Result Comment: TRIG ATP III CLASSIFICATION TRIG less than 150 mg/dL Normal TRIG 150-199 mg/dL Borderline high TRIG 200-500 mg/dL High TRIG greater than 500 mg/dL Very high Standard traceable to the Center for Disease Conrtrol and Prevention (CDC) test method. Performed By: #### E BS LIPID, EBS A1C, EBS CMP #### [facility] [address] VLDL CHOLESTEROL 22 mg/dL Normal [facility] Comment on above: Performed By: #### E BS LIPID, EBS A1C, EBS CMP #### [facility] [address] No Panel InformationOrdered By: Anjali Hendrix on 10-06-2021 Estimated GFR () > 60 mL/Min [facility] Comment on above: GFR estimated refere nce range: According to KDOQI guidelines, <60 ml/min/1.73m2 is sufficient to diagnose a patient with chronic kidney disease. Pharmacy Creatinine Clearance (Chem N/A [facility] Triglycerides Reflex 113 mg/dL 35-149 [facility] Comment on above: TRIG ATP III [...] additional P-5'-P [Catalytic activity/Vol] 19 U/L 10-60 [facility] HCG,Urineon 04-25-2021 Beta HCG ( test) Ql (U) Negative Normal [facility] Comment on above: Result Comment: PERF ORMED BY: [place] [address] PATHOLOGIST FOOD CART ATTENDANT MARLEY CANO M.D. Performed By: #### U HCG #### [address] HCG,Urineon 03-16-2021 Beta HCG ( test) Ql (U) Negative Normal [facility] Comment on above: Result Comment: PERF ORMED BY: [place] [address] PATHOLOGIST FOOD CART ATTENDANT MARLEY CANO M.D. 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 Testing for SARS-CoV-2 by RT-PCR This test was developed and its performance characteristics determined by [employer] and validated at the [facility]. This test has not been FDA [...] is terminated or revoked sooner. PERFORMED BY: [facility] [address] [place] [id number] PATHOLOGIST FOOD CART ATTENDANT MARLEY CANO M.D. Performed By: #### C OVID [address] [facility] #### [facility] [address] [place] [id number] [facility] Vital Signs Date Time Vital Sign Value Performing Clinician Facility 08-26-2023 00:00-0400 Diastolic blood pressure 85 mm[Hg] Ced Dorys [facility] 08-26-2023 00:00-0400 Heart rate 76 /min Ced Dorys [facility] 08-26-2023 00:00-0400 Hourly Rounding Ced Dorys [facility] 08-26-2023 00:00-0400 Mean blood pressure 96 mm[Hg] Ced Dorys [facility] 08-26-2023 00:00-0400 SaO2% (BldA) [Mass fraction] 100 % Ced Dorys [facility] 08-26-2023 00:00-0400 Systolic blood pressure 119 mm[Hg] Ced Dorys [facility] 08-25-2023 23:30-0400 Blood Pressure Location Ced Dorys [facility] 08-25-2023 23:30-0400 Diastolic blood pressure 82 mm[Hg] Ced Dorys [facility] 08-25-2023 23:30-0400 Heart rate 77 /min Ced Dorys [facility] 08-25-2023 23:30-0400 Hourly Rounding Ced Dorys [facility] 08-25-2023 23:30-0400 Mean blood pressure 99 mm[Hg] Ced Dorys [facility] 08-25-2023 23:30-0400 SaO2% (BldA) [Mass fraction] 99 % Ced Dorys [facility] 08-25-2023 23:30-0400 Systolic blood pressure 132 mm[Hg] Ced Dorys [facility] 08-25-2023 22:30-0400 Diastolic blood pressure 96 mm[Hg] Ced Dorys [facility] 08-25-2023 22:30-0400 Heart rate 73 /min Ced Dorys [facility] 08-25-2023 22:30-0400 Hourly Rounding Ced Dorys [facility] 08-25-2023 22:30-0400 Mean blood pressure 107 mm[Hg] Ced Dorys [facility] 08-25-2023 22:30-0400 SaO2% (BldA) [Mass fraction] 99 % Ced Dorys [facility] 08-25-2023 22:30-0400 Systolic blood pressure 128 mm[Hg] Ced Dorys [facility] 08-25-2023 20:39-0400 Body temperature 98.42 [degF] Ced Dorys [facility] 08-25-2023 20:39-0400 Heart rate 103 /min Ced Dorys [facility] 08-25-2023 20:39-0400 Respiratory rate 18 /min Ced Dorys [facility] 2023 09:00-0400 Body height 170.18 cm Al Ball Other [facility] Other 10-23-2022 09:00-0400 Body mass index (BMI) [Ratio] 33.36 kg/m2 Al Ball Other [facility] Other 10-23-2022 09:00-0400 Body weight 96.62 kg Al Ball Other [facility] Other 10-23-2022 09:00-0400 Diastolic blood pressure 68 mm[Hg] Al Ball Other [facility] Other 10-23-2022 09:00-0400 Systolic blood pressure 105 mm[Hg] Al Ball Other [facility] Other 05-05-2021 11:45-0400 Body height 170.18 cm Eric Puckettley Other [facility] Other 05-05-2021 11:45-0400 Body mass index (BMI) [Ratio] 34.14 kg/m2 Eric Emily Other [facility] Other 05-05-2021 11:45-0400 Body weight 98.88 kg Eric Emily Other [facility] Other 02-01-2021 15:30-0500 Body height 170.18 cm Eric Emily Other [facility] Other 02-01-2021 15:30-0500 Body mass index (BMI) [Ratio] 31.48 kg/m2 Eric Emily Other [facility] Other 02-01-2021 15:30-0500 Body weight 91.17 kg Eric Emily Other [facility] Other Encounters Encounter Date Encounter Type Care Provider Facility Start: 09-04-2023 End: 09-04-2023 ambulatory Leah Casiano Facility:[facility] Katherine dominique Start: 09-04-2023 End: 09-04-2023 Patient encounter procedure Leah Casiano [facility] [place] Start: 08-25-2023 End: 08-26-2023 Emergency department patient visit DO Ced WattsEric Dorys Facility[facility] Start: 06-26-2023 End: 06-26-2023 ambulatory Ning PATEL Facility:[facility] Start: 06-20-2023 End: 06-20-2023 ambulatory HUSSEIN A BROWN Not Available Start: 06-20-2023 End: 06-20-2023 ambulatory HUSSEIN A BROWN Not Available Start: 06-06-2023 End: 06-06-2023 ambulatory HUSSEIN A BROWN Not Available Start: 06-06-2023 End: 06-06-2023 ambulatory HUSSEIN A BROWN Not Available Start: 04-29-2023 End: 04-29-2023 ambulatory HUSSEIN A BROWN Not Available Start: 04-29-2023 End: 04-29-2023 ambulatory HUSSEIN A BROWN Not Available Start: 02-05-2023 End: 02-05-2023 ambulatory ALEX TERESO Not Available Start: 02-05-2023 End: 02-05-2023 ambulatory ALEX TERESO Not Available Start: 01-09-2023 End: 01-09-2023 ambulatory RADHA SWETHA Not Available Start: 01-09-2023 End: 01-09-2023 ambulatory RADHA SWETHA Not Available Start: 10-23-2022 End: 10-23-2022 ambulatory Al Snow Other [facility] Other Start: 10-23-2022 Office outpatient vi sit 10 minutes Al Snow [facility] Start: 10-18-2022 End: 10-19-2022 ambulatory MARY TRAN [facility] Start: 07-17-2022 End: 07-17-2022 ambulatory BERNARDO RSOAS Facility:[facility] Start: 06-30-2022 End: 07-01-[address] [...] Facility:[facility] Start: 04-05-2022 End: 04-05-2022 ambulatory OSCAR DIAB . Facility:[facility] Start: 03-06-2022 End: 03-07-2022 ambulatory [...] Referred MD Lona Gomez Work Phone: [facility] [address] Start: 08-30-2021 End: 08-31-[address] LONA GOMEZ . Facility:[facility] Start: 05-05-2021 End: 05-05-2021 ambulatory Eric Diaz Other [facility] Other Start: 05-05-2021 Postop follow up vis it related to original px Eric Diaz [facility] Start: 03-27-2021 End: 03-27-2021 ambulatory Eric Diaz Other [facility] Other Start: 03-27-2021 Encounter for other preprocedural examination Eric Diaz [facility] Start: 03-27-2021 Postop follow up vis it related to original px Eric Diaz [facility] Start: 02-08-2021 End: 02-08-2021 ambulatory Eric Diaz Other [facility] Other Start: 02-08-2021 Telephone encounter Eric DOMINGUEZ [facility] Start: 02-06-2021 End: 02-06-2021 ambulatory Eric Diaz Other [facility] Other Start: 02-06-2021 Telephone encounter Eric DOMINGUEZ [facility] Start: 02-01-2021 End: 02-01-2021 ambulatory Eric Diaz Other [facility] Other Start: 02-01-2021 Encounter for other preprocedural examination Eric Diaz [facility] Start: 02-01-2021 Office outpatient ne w 45 minutes Eric Diaz [facility] Procedures Date Procedure Procedure Detail Performing Clinician Cholecystectomy Ced wilhelm H/O: tubal ligation Ced flores Tonsil and adenoid s tructure (body structure) Ced Saul Immunizations Immunization Date Immunization Notes Care Provider [facility] 01-17-2021 COVID-19 Wei Fernandez (Pfizer) MD Lona Gomez Work Phone: [facility] 12-18-2020 COVID-Wei Song (Pfizer) MD Lona Gomez Work Phone: [facility] Payers Date Payer Category Payer Unknown [id number] 2.16.84 [id number] 1993 Unknown [id number] 2.16.84 0.1.782292.3.579.2.593 1993 Unknown [id number] 2.16.84 0.1.454665.3.579.2.593 1993 Unknown [id number] 2.16.84 0.1.038383.3.579.2.593 1993 Unknown [id number] 2.16.84 0.1.762674.3.579.2.593 1993 Unknown [id number] 2.16.84 0.1.912412.3.579.2.593 1993 Unknown [id number] 2.16.84 0.1.394529.3.579.2.593 1993 Unknown [id number] 2.16.84 0.1.977668.3.579.2.593 1993 Unknown [id number] 2.16.84 0.1.597931.3.579.2.593 1993 Unknown [id number] 2.16.84 0.1.055171.3.579.2.593 1993 Unknown [id number] 2.16.84 0.1.853847.3.579.2.593 1993 Unknown [id number] 2.16.84 0.1.199068.3.579.2.593 1993 Unknown [id number] 2.16.84 0.1.489509.3.579.2.593 1993 Unknown [id number] 2.16.84 0.1.674720.3.579.2.593 1993 Unknown [id number] 2.16.84 0.1.769724.3.579.2.593 1993 Unknown [id number] 2.16.84 0.1.113530.3.579.2.593 1993 Unknown [id number] 2.16.84 0.1.894702.3.579.2.593 1993 Unknown [id number] 2.16. 840.1.882009.3.579.2.175 1993 Unknown [id number] 2.16.84 0.1.077546.3.579.2.1259 1993 Unknown [id number] 2.16.84 0.1.373141.3.579.2.1259 1993 Unknown [id number] 2.16.84 0.1.241261.3.579.2.1259 1993 Unknown [id number] 2.16.840 .1.092055.3.579.2.1259 1993 Unknown [id number] 2.16.840 .1.183791.3.579.2.1259 1993 Unknown [id number] 2.16.8 40.1.897835.3.579.2.727 1993 Unknown [id number] 2.16.8 40.1.446067.3.579.2.727 1993 Unknown [id number] 2.16.8 40.1.238942.3.579.2.727 1959 Unknown [id number] 2. 16.840.1.219120.19 1959 Unknown [id number] 2.16. 840.1.599073. 1959 Unknown [id number] 1959 Unknown [id number] Self-pay Self Pay [id number] Unknown [id number] 2.16.840 .1.260177.19 Social History Date Type Detail Facility Sex Assigned At [facility] Start: 04-25-2021 [facility] Start: 1995 Sex Assigned At Female F [facility] Tobacco smoking status No Smokin g Status Entered [facility] Functional Status Date Assessment Result Facility 08-25-2023 Functional Status N/A [facility] Clinical Notes 02-01-2021 to 08-26-2023 Note Date & Type Note Facility 08-26-2023 Hospital Discharg e instructions Patient Education 08/26/2023 00:23:44 General Headache Without Cause General Headache Without Cause A headache is pain or discomfort felt around the head or neck area. There are many causes and types of headaches. A few common types include: Tension headaches. Migraine headaches. Cluster headaches. Chronic daily headaches. Sometimes, the specific cause of a headache may not be found. Follow these instructions at home: Watch your condition for any changes. Let your health care provider know about them. Take these steps to help with your condition: Managing pain Take wwfb-[id number]-yjtzhhw and prescription medicines only as told by your health care provider. Treatment may include medicines for pain that are taken by mouth or applied to the skin. Lie down in a dark, quiet room when you have a headache. Keep lights dim if bright lights bother you or make your headaches worse. If directed, put ice on your head and neck area: ?Put ice in a plastic bag. ?Place a towel between your skin and the bag. ?Leave the ice on for 20 minutes, 2 3 times per day. ?Remove the ice if your skin turns bright red. This is very important. If you cannot feel pain, heat, or cold, you have a greater risk of damage to the area. If directed, apply heat to the affected area. Use the heat source that your health care provider recommends, such as a moist heat pack or a heating pad. ?Place a towel between your skin and the heat source. ?Leave the heat on for 20 30 minutes. ?Remove the heat if your skin turns bright red. This is especially important if you are unable to feel pain, heat, or cold. You have a greater risk of getting burned. Eating and drinking Eat meals on a regular schedule. If you drink alcohol: ?Limit how much you have to: ?0 1 drink a day for women who are not . ? 0 2 drinks a day for men. ?Know how much alcohol is in a drink. In the [place] one drink equals one 12 oz bottle of beer (355 mL), one 5 oz glass of wine (148 mL), or one 1 oz glass of hard liquor (44 mL). Stop drinking caffeine, or decrease the amount of caffeine you drink. Drink enough fluid to keep your urine pale yellow. General instructions Keep a headache journal to help find out what may trigger your headaches. For example, write down: ?What you eat and drink. ?How much sleep you get. ?Any change to your diet or medicines. Try massage or other relaxation techniques. Limit stress. Sit up straight, and do not tense your muscles. Do not use any products that contain nicotine or tobacco. These products include cigarettes, chewing tobacco, and vaping devices, such as e-cigarettes. If you need help quitting, ask your health care provider. Exercise regularly as told by your health care provider. Sleep on a regular schedule. Get 7 9 hours of sleep each night, or the amount recommended by your health care provider. Keep all follow-up visits. This is important. Contact a health care provider if: Medicine does not help your symptoms. You have a headache that is different from your usual headache. You have nausea or you vomit. You have a fever. Get help right away if: Your headache: ?Becomes severe quickly. ?Gets worse after moderate to intense physical activity. You have any of these symptoms: ?Repeated vomiting. ?Pain or stiffness in your neck. ?Changes to your vision. ?Pain in an eye or ear. ?Problems with speech. ?Muscular weakness or loss of muscle control. ?Loss of balance or coordination. You feel faint or pass out. You have confusion. You have a seizure. These symptoms may represent a serious problem that is an emergency. Do not wait to see if the symptoms will go away. Get medical help right away. Call your local emergency services (911 in the [place] Do not drive yourself to the hospital. Summary A headache is pain or discomfort felt around the head or neck area. There are many causes and types of headaches. In some cases, the cause may not be found. Keep a headache journal to help find out what may trigger your headaches. Watch your condition for any changes. Let your health care provider know about them. Contact a health care provider if you have a headache that is different from the usual headache, or if your symptoms are not helped by medicine. Get help right away if your headache becomes severe, you vomit, you have a loss of vision, you lose your balance, or you have a seizure. This information is not intended to replace advice given to you by your health care provider. Make sure you discuss any questions you have with your health care provider. Document Revised: 07/05/2021 Document Reviewed: 07/05/2021 [employer] Patient Education 2022 [employer]. Follow Up Care 08/25/2023 20:37:11 With:Lona Gomez Address: [address] [place], [place] [id number] Business (1) When:Within 3 Day(s) [facility] 08-26-2023 Note ED Patient Education Note Neurology [...] with your condition: Managing pain ? Take vygp-ygj-jpepzaz and prescription medicines only as told by [...] provider. Document Revised: 07/05/2021 Document Reviewed: 07/05/2021 [employer] Patient Education ? 2022 [employer]. 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 Oct, BOB (generalized anxiety disorder) (ICD-10 - F41.1) Controlled w/ medications Instructed on healthy diet and exercise Oct, Gastroesophageal reflux disease without esophagitis (ICD-10 - K21.9) Diet instructions, avoid lying flat after eating, avoid eating prior to HS. Continue PPI [employer] Other 05-30-2023 NotePROCEDURE: US PREG <14 WKS, 07/17/2022 5:02 PM EDT CLINICAL INDICATIONS: [...] Electronically authenticated by: IKE COMBS Date: 2022-07-17 17:34[facility]03-18-2022 Evaluation note* Encounter Date Diagnosis Assessment Notes Treatment Notes Treatment Clinical Notes Apr, Right carpal tunnel syndrome (ICD-10 [...] on range of motion and strength exercise. 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 Right side healing well. Ready to proceed with left carpal tunnel release. Instructed on application of Neosporin to incision to help dryness. May allow incision to get wet in clean running water, no thrasher/quezada/strea ms. Instructed to progress activity as tolerated Mar, [...] poor healing. I have advised against the senior living use of narcotic pain medication. I have [...] outcome. Mar, Pre-op examination (ICD-10 - Z01.818) [employer] Other 12-15-2021 Evaluation note* Encounter Date Diagnosis Assessment Notes Treatment Notes Treatment Clinical Notes Jan, Left carpal tunnel syndrome (ICD-10 [...] of pinch strength in approximately 6 weeks, digital asset specialist strength recovery at about 12 weeks, and [...] as documented in the electronic medical record. [employer] Other Evaluation noteNo [employer] Other Evaluation noteNo assessment information available [facility] Work Phone: [employer] general Narrative - Reported* Type Description Date Medical History migraine headache Medical History hyperthyroidism Medical History back muscle spasms Surgical History gall bladder Surgical History tonsillectomy and adenoidectomy Surgical History ear tubes Hospitalization History childbirth [facility] [employer] Other [facility] Narrative - Reported* Type Description Date Medical History GERD Medical History BOB Surgical History T/A Surgical History CTS Surgical History Cholecystectomy [facility] [employer] Other Hospital course Narrative No data available for this section [facility] No data available for this section [facility] No data available for this section [facility] Summary Purpose Family History No Family History [...] FOR VISIT (unrecogniz ed section and content) 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 Hands1 WEEK POST OPCONSULT DR NATALIE NARANJO CTS [facility] INFORMATION SOURCE (unrecogn ized section and content) DATE CREATED AUTHOR 10/12/2021 [facility] DATE CREATED AUTHOR AUTHOR'S ORGANIZ ATION 07/27/2022 [facility] DATE CREATED AUTHOR AUTHOR'S ORGANIZ ATION 12/27/2022 [facility] DATE CREATED AUTHOR AUTHOR'S ORGANIZ ATION 06/21/2023 [facility] DATE CREATED AUTHOR AUTHOR'S ORGANIZ ATION 08/25/2023 [place] [facility] DATE CREATED AUTHOR AUTHOR'S ORGANIZ ATION 09/07/2023 [facility] DATE CREATED AUTHOR AUTHOR'S ORGANIZ ATION 09/20/2023 [facility] Care Teams (unrecognized sec [...] BE BASED ON THE PRIMARY CLINICAL RECORDS. [facility]. provides no warranty or guarantee of the accuracy or completeness of information in this document.
--- NOTE | 2023-10-31 09:22 | XR_ITS ---
The [address] [address] Patient Name: EPHRAIM MONTGOMERY MRN: [id number] date: 1995 Sex: F Assigned Patient Location: [facility] Current Patient Location: [facility] Accession/Order Number: [id number] Exam Date: 10/31/2023 09:35 Report Date: 10/31/2023 09:54 At the request of: LONA ESTRADA Procedure: XR chest 2V PROCEDURE: XR chest 2V DATE: 10/31/2023 8:35 AM CDT COMPARISONS: 12/25/2021 CLINICAL INDICATION: 28 years Female Dyspnea On Exertion FINDINGS: The cardiomediastinal silhouette and pulmonary vasculature are within normal limits. The lungs are clear. There is no evidence of pleural effusion or pneumothorax. XR/XR chest 2V IMPRESSION: Chest radiograph is within normal limits. Electronically authenticated by: MARLENE CHAN Date: 10/31/2023 09:54
== END 2023-10-31 07:50 | disposition home or self-care (01) ==
LOC: RAD 07:50
PROVIDERS: PCP Family Medicine; Visit Provider Family Medicine
DX: R06.09 Other forms of dyspnea (principal)
CPT/HCPCS: 36415; 71046; 85018; 93306; 94010; 94726; 94729

== ENCOUNTER 2023-11-08 09:00 | Outpatient (OUT) | payer OTHER, SELFPAY ==
--- OUTSIDE RECORDS SUMMARY | 2023-11-08 09:11 | XMS_ITS | CCD ---
Author Organization [facility] CliniSyde Care Team Providers Care Drop Tester Name Role Phone Eric Diaz Unavailable MD Lona Gomez Primary Care Provider [phone] JANET Hendrix Attending Provider NATALIE Reyes, DR ZAMORANO Consulting Unavailable HOY ., DR ZAMORANO Attending Unavailable HOY ., DR ZAMORANO Admitting Unavailable HOY ., DR ZAMORANO Primary Care Unavailable ENDER, DR NILDA Rodriguez Consulting Unavailable MISC, DR ALEXIS Attending Unavailable MISC, DR ALEXIS Admitting Unavailable HOY ., DR ZAMORANO Primary Care Unavailable ALICEVILLE, DR NILDA Rodriguez Consulting Unavailable MISC, DR [...] HOY ., DR ZAMORANO Primary Care Unavailable ALICEVILLE, DR NILDA Rodriguez Consulting Unavailable PAY ., [...] sources) Latex Drug allergy (disorder) 02-24-2016 [facility] Repository Medications Current Medications Medication Drug [...] 2021 1:00am take 1 capsule by mo [facility] every twenty-four hours Cymbalta 60 MG 1 [...] 11-04-2021 Chronic Other aftercare (1 source) Other medical terminologist (current) drug therapy; Translations: [OTH SKILLED NURSING CURRENT DRUG THERAPY] Onset: 06-14-2022 Episodic Other [...] M.D. Transcribed by: MENDY Technologist: BRIAN Stone [facility] ED Clinical Summaryon 2023 ED Clinical Summary ED Clinical Summary [place] [id number] ED Clinical Summary Person Information Name: MARIANGEL MONTGOMERY/[facility] Age: 27 Years : 1995 Sex: Female Language: Thai PCP: Lona Gomez MD Marital Status: Visit [...] 08/26/2023 00:23:44 08/26/2023 00:23:44 08/26/2023 00:23:44 ADDRESS: [address] [place] [id number] PHYS DOC NOTES: MEDICAL INFORMATION: Prescriptions Given: PATIENT EDUCATION INFORMATION: Instructions: General Headache Without Cause Follow up: With: Address: When: Lona Gomez [address] [place] [id number] Business (1) In 3 days DIAGNOSIS: Headache Normal [facility] ED Patient Summaryon 024 ED Patient Summary ED Patient Summary [address] [address] Patient Discharge Instructions Person Information Name: MARIANGEL MONTGOMERY Age: 27 Years Arrival Date: 08/25/2023 20:33:54 Discharge Diagnosis: Headache Primary Care Physician: Lona Gomez MD Provider Information Primary Provider: Ced Saul DO Advanced Tufter Hand:None The exam and treatment you received in the Emergency Department were for an urgent problem and are not intended as complete care. It is important that you follow up with a doctor, nurse practitioner, or physician?s hygiene assistant for ongoing care. If your symptoms [...] Follow-up Instructions: With: Address: When: Lona Gomez [address] [place] [address] Business (1) In 3 days In the event that this physician does not participate in your insurance network, please consult with your insurance company to find a nearby participating provider. Patient Education Materials: General Headache Without Cause A MESSAGE TO ALL PATIENTS REGARDING OPIOIDS PRESCRIPTION OPIOIDS: WHAT YOU NEED TO KNOW Prescription opioids can be used to help relieve shltywmw-da-tyglfa pain and are often prescribed following a [...] be struggling with addiction, tell your health day care provider and ask for guidance or call [facility]?S [facility] Helpline at [phone]. e Source: [place] Department (more content not included)... Normal [facility] XR Chest Single Viewon 08-25 XR [...] in mGy = n/a DAP = n/a [facility] BMPOrdered By: SYSTEM SYSTEM on 08-25-2023 Anion gap [Moles/Vol] 12 mmol/L Normal 6 - 16 mEq/L R emisol Chem Comment on above: Performed By: #### 2 [id number] #### [facility] [address] [place] [address] Calcium [Mass/Vol] 9.1 mg/dL Normal 8.9 - 11. 1 mg/dL Remisol Chem Comment on above: Performed By: #### 2 [id number] #### [facility] [address] [place] [address] Chloride [Moles/Vol] 104 mmol/L Normal 101 - 1 11 mmol/L Remisol Chem Comment on above: Performed By: #### 2 [id number] #### [facility] [address] [place] [address] CO2 [Moles/Vol] 25 mmol/L Normal 21 - 31 mmol/L Remisol Chem Comment on above: Performed By: #### 2 [id number] #### [facility] [address] [place] [address] Creatinine [Mass/Vol] 0.6 mg/dL Normal 0.5 - 1.3 mg/dL Remisol Chem Comment on above: Performed By: #### 2 [id number] #### [facility] [address] [place] [address] Glucose [Mass/Vol] 104 mg/dL Normal 55 - 199 mg/dL Remisol Chem Comment on above: Performed By: #### 2 [id number] #### [facility] [address] [place] [address] Potassium [Moles/Vol] 3.7 mmol/L Normal 3.5 - 5.3 mmol/L Remisol Chem Comment on above: Performed By: #### 2 [id number] #### [facility] [address] [place] [address] Sodium [Moles/Vol] 137 mmol/L Normal 135 - 145 mmol/L Remisol Chem Comment on above: Performed By: #### 2 900691 #### [facility] [address] [place] [address] Urea nitrogen [Mass/Vol] 11 mg/dL Normal 5 - 21 mg/dL Remisol Chem Comment on above: Performed By: #### 2 [id number] #### [facility] [address] [place] [address] BMPon 08-25-2023 Urea nitrogen/Creatinine [Mass ratio] 18 No Units Normal 10-20 [facility] Comment on above: Performed By: #### 2 [id number] #### [facility] [address] [place] [address] CBC w/ Auto DiffOrdered By: SYSTEM SYSTEM on 08-25-2023 Basophils/100 WBC (Bld) 0.5 % Normal 0.0 - 2.0 % Remisol Heme Comment on above: Performed By: #### 2 [id number] #### [facility] [address] [place] [address] Basophils/Leukocytes Auto (Bld) [Pure # fraction] 0.0 E9/L Normal 0.0 - 0.2 E9/L Remisol Heme Comment on above: Performed By: #### 2 [id number] #### [facility] [address] [place] [address] Eosinophils (Bld) [#/Vol] 0.1 E9/L Normal 0.0 - 0.5 E9/L Remisol Heme Comment on above: Performed By: #### 2 [id number] #### [facility] [address] [place] [address] Eosinophils/100 WBC (Bld) 1.6 % Normal 0.0 - 8.0 % Remisol Heme Comment on above: Performed By: #### 2 924032 #### [facility] [address] [place] [address] Erythrocyte distribution width (RBC) [Ratio] 14.4 % High 10.9 - 14.2 % Remisol Heme Comment on above: Performed By: #### 2 225975 #### [facility] [address] [place] [address] Hematocrit (Bld) [Volume fraction] 41.0 % Normal 34.0 - 46.0 % Remisol Heme Comment on above: Performed By: #### 2 [id number] #### [facility] [address] [place] [address] Hemoglobin (Bld) [Mass/Vol] 14.2 g/dL Normal 12.0 - 16.0 gm/dL Remisol Heme Comment on above: Performed By: #### 2 [id number] #### [facility] [address] [place] [address] Lymphocytes (Bld) [#/Vol] 2.1 E9/L Normal 1.0 - 4.0 E9/L Remisol Heme Comment on above: Performed By: #### 2 [id number] #### [facility] [address] [place] [address] Lymphocytes/100 WBC (Bld) 23.8 % Normal 14.0 - 50.0 % Remisol Heme Comment on above: Performed By: #### 2 729854 #### [facility] [address] [place] [address] MCH (RBC) [Entitic mass] 28.6 pg Normal 27.0 - 34.0 pg Remisol Heme Comment on above: Performed By: #### 2 [id number] #### [facility] [address] [place] [address] MCHC (RBC) [Mass/Vol] 34.7 g/dL Normal 31.4 - 36.0 gm/dL Remisol Heme Comment on above: Performed By: #### 2 [id number] #### [facility] [address] [place] [address] MCV (RBC) [Entitic vol] 82.5 fL Normal 80.0 - 100.0 fL Remisol Heme Comment on above: Performed By: #### 2 [id number] #### [facility] [address] [place] [address] Monocytes (Bld) [#/Vol] 0.6 E9/L Normal 0.2 - 1.0 E9/L Remisol Heme Comment on above: Performed By: #### 2 [id number] #### [facility] [address] [place] [address] Neutrophils (Bld) [#/Vol] 5.8 E9/L Normal 2.0 - 7.5 E9/L Remisol Heme Comment on above: Performed By: #### 2 736646 #### [facility] [address] [place] [address] Neutrophils/100 WBC (Bld) 66.7 % Normal 36.0 - 75.0 % Remisol Heme Comment on above: Performed By: #### 2 [id number] #### [facility] [address] [place] [address] Platelet 223.0 E9/L Normal 150.0 - 500.0 E9/L Remisol Heme Comment on above: Performed By: #### 2 [id number] #### [facility] [address] [place] [address] Platelet mean volume (Bld) [Entitic vol] 9.0 fL Normal 6.4 - 10.8 fL Remisol Heme Comment on above: Performed By: #### 2 [id number] #### [facility] [address] [place] [address] RBC (Bld) [#/Vol] 5.0 E12/L Normal 4.3 - 5.9 E12/L Remisol Heme Comment on above: Performed By: #### 2 [id number] #### [facility] [address] [place] [address] WBC corrected for nucl RBC Auto (Bld) [#/Vol] 8.8 E9/L Normal 4.0 - 11.0 E9/L Remisol Heme Comment on above: Performed By: #### 2 [id number] #### [facility] [address] [place] [address] CHEMISTRYOrdered By: SYSTEM SYSTEM on 08-25-2023 Troponin [...] 32.5 s Normal 25.1 - 36.5 second(s) [facility] Auto Coag Comment on above: Interpretive Data: [...] the same coagulation reagent and instrumentation as [facility]. Currently there are no coagulation studies available worldwide for children to 14 days, and no normal ranges. Heparin therapeutic range (represented by Anti-Factor Xa activity of 0.2 - 0.4 U/mL) corresponds to PTT of 56.6 - 109.0 sec. PT Coag (PPP) [Time] 10.7 s Normal 9.4 - 1 2.5 second(s) [facility] Auto Coag Comment on above: Interpretive Data: [...] the same coagulation reagent and instrumentation as [facility]. Currently there are no coagulation studies available [...] and Complexity of Problems Differential Diagnosis: [] [facility] Data External documents reviewed: N/A My [...] Information Lona Natalie In 3 days [address] [facility] [address] Business (1) Additional Instructions: Patient Education [...] 21:00:00) Lymph Auto: 23.8 % (08/25/23 21:00:00) [place] Auto: 7.4 % (08/25/23 21:00:00) Eos Auto: 1.6 % (08/25/23 21:00:00) Basophil Auto: 0.5 % (08/25/23 21:00:00) Neutro Absolute: 5.8 E9/L (08/25/23 21:00:00) Lymph Absolute: 2.1 E9/L (08/25/23 21:00:00) [place] Absolute: 0.6 E9/L (08/25/23 21:00:00) Eos Absolute: [...] Potassium Lvl: (more content not included)... Normal [facility] Comment on above: Result Comment: Elec tronically Signed By: Ced Saul DO\.br\Date and Time Signed: 08/25/23 23:50 EDT HEMATOLOGYOrdered By: SYSTEM SYSTEM on 08-25-2023 Monocytes/100 WBC (Bld) 7.4 % Normal 4.0 - 14.0 % Remisol Heme PT & PTTon 08-25-2023 aPTT Coag (PPP) [Time] 32.5 second(s) Normal 25.1-36.5 [facility] Comment on above: Result Comment: Para [...] the same coagulation reagent and instrumentation as [facility]. Currently there are no coagulation studies available worldwide for children to 14 days, and no normal ranges. Heparin therapeutic range (represented by Anti-Factor Xa activity of 0.2 - 0.4 U/mL) corresponds to PTT of 56.6 - 109.0 sec. Performed By: #### 1 [id number] #### [facility] [address] [place] [address] PT Coag (PPP) [Time] 10.7 second(s) Normal 9.4-12.5 [facility] Comment on above: Result Comment: 15 [...] the same coagulation reagent and instrumentation as [facility]. Currently there are no coagulation studies available worldwide for children to 14 days, and no normal ranges. Performed By: #### 1 [id number] #### [facility] [address] [place] [address] PT & PTTOrdered By: Brandie Caceres on 08-25-2023 INR Coag (PPP) [Relative time] 0.96 {INR} Invalid Interpretation Code [facility] Auto Coag Comment on above: Result Comment: INR results are specifically intended to assess patients stabilized on long-term Anticoagulation therapy suggested INR?s ?Less Intensive Anticoagulation? 2.0 ? 3.0 Conventional Range 3.0 ? 4.5 Performed By: #### 1 [id number] #### [facility] [address] [place] [address] Interpretive Data: I NR results are specifically intended to assess patients stabilized on long-term Anticoagulation therapy suggested INR s Less Intensive Anticoagulation 2.0 3.0 Conventional Range 3.0 4.5 Troponin 0 Hr.on 08-25-2023 Troponin HS <2.30 Low 10.10-27.10 [facility] Comment on above: Result Comment: The 95% CI (Confidence Interval) PPV (Positive Predictive Value) for myocardial infarction in females is 38 pg/mL, in males 51 pg/mL. The results should be used in conjunction with clinical conditions of myocardial infarction. (Access High Sensitivity Troponin I Instructions For Use, Jorje Nina, September 2017) Performed By: #### 1 [id number] #### [facility] [address] [place] [address] eGFROrdered By: SYSTEM CityVoterE YellowSchedule on 08-25-2023 eGFR 124 mL/min/1.73 m2 Normal >=59 Remiso l Chem Comment on above: Order Comment: Order added by Discern Expert. Performed By: #### 1 [id number] #### [facility] [address] [place] [address] Quantiferon-TB Plus (Client Incubated)on 06-28-2023 Gamma interferon background IA Qn (Bld) 0.05 International_Unit/mL Invalid Interpretation Code [facility] Comment on above: Performed By: #### 2 [id number], [id number], [id number], [id number] #### [facility] [address] [place] [address] M. tuberculosis stim IFN-g by CD4+ CD8+ T-cells corrected for background Qn (Bld) 0.04 International_Unit/mL Invalid Interpretation Code [facility] Comment on above: Performed By: #### 2 438068, [id number], [id number], [id number] #### [facility] [address] [place] [address] M. tuberculosis stim IFN-g by CD4+ T-cells corrected for background Qn (Bld) 0.04 International_Unit/mL Invalid Interpretation Code [facility] Comment on above: Performed By: #### 2 663663, [id number], [id number], [id number] #### [facility] [address] [place] [address] M. tuberculosis stim IFN-g Ql (Bld) [Interp] Negative Invalid Interpretation Code Negative [facility] Comment on above: Result Comment: No [...] interferon gamma. Chemiluminescence immunoassay methodology Performed at: [employer] [facility] [id number] PhD Allen Allan Performed By: #### 2 387070, [id number], [id number], [id number] #### [facility] [address] [place] [address] Mitogen stimulated gamma interferon corrected for background Qn (Bld) >10.00 Invalid Interpretation Code [facility] Comment on above: Performed By: #### 2 886941, [id number], [id number], [id number] #### [facility] [address] [place] [address] Service comment (Unsp spec) [Interp] Comment Invalid Interpretation Code [facility] Comment on above: Result Comment: Saeed [...] for the test. Performed By: #### 2 180231, [id number], [id number], [id number] #### [facility] [address] [place] [address] Hep Bs Abon 06-27-2023 HBV surface Ab Ql (S) Reactive Invalid Interpretation Code [facility] Comment on above: Result Comment: Non Reactive: Inconsistent with immunity, less than 10 mIU/mL Reactive: Consistent with immunity, greater than 9.9 mIU/mL Performed at: [address] [id number] PhD Allen Allan Performed By: #### 2 472612, [id number], [id number], [id number] #### [facility] [address] [place] [address] Measles/Mumps/Rubella Immuni tyon 06-27-2023 MeV IgG IA Qn (S) {index_val} Invalid Interpretation Code Immune >16.4 [facility] Comment on above: Result Comment: Nega tive <13.5 Equivocal 13.5 - 16.4 Positive >16.4 Presence of antibodies to Rubeola is presumptive evidence of immunity except when acute infection is suspected. Performed By: #### 2 882974, [id number], [id number], [id number] #### [facility] [address] [place] [address] MuV IgG IA Qn (S) 12.7 A unit/mL Invalid Interpretation Code Immune >10.9 [facility] Comment on above: Result Comment: Nega tive <9.0 Equivocal 9.0 - 10.9 Positive >10.9 A positive result generally indicates past exposure to Mumps virus or previous vaccination. Performed at: [facility] [address] [place], [place] [id number] PhD Allen Allan Performed By: #### 2 826308, [id number], [id number], [id number] #### [facility] [address] [place] [address] Rubella virus IgG Qn (S) 8.63 [IU]/mL Invalid Interpretation Code Immune >0.99 [facility] Comment on above: Result Comment: Non- immune <0.90 Equivocal 0.90 - 0.99 Immune >0.99 Performed By: #### 2 888102, [id number], [id number], [id number] #### [facility] [address] [place] [address] Varic IgGon 06-27-2023 VZV IgG IA Qn (S) 1013 Invalid Interpretation Code Immune >165 [facility] Comment on above: Result Comment: Nega tive <135 Equivocal 135 - 165 Positive >165 A positive result generally indicates exposure to the pathogen or administration of specific immunoglobulins, but it is not indication of active infection or stage of disease. Performed at: [facility] [address] [place], [place] [id number] PhD Allen Allan Performed By: #### 2 131572, [id number], [id number], [id number] #### [facility] [address] [place] [address] Adilson Kiton 10-18-2022 Adilson Kit Forwarded to Adilson Normal [facility] Comment on above: Performed By: #### N ATER #### [address] [address] Finish Inspector: Neeraj Cabrera MD ER URINE PROFILEon 3 Bilirubin Ql (U) Negative Normal NEGATIVE [facility] Comment on above: Performed By: #### IVET OSBORN ####[facility] [address] [place] [address]Dr. Yilan Norris Clarity (U) CLEAR Normal CLEAR [facility] Comment on above: Performed By: #### Jackelyn BOTELLO UMICRO ####[facility] [address] [place], [place] [address]Dr. Jc Norris Color (U) LT. YELLOW Normal YELLOW [facility] Comment on above: Performed By: #### Jackelyn BOTELLO UMICRO ####[facility] [address] [place], [place] [address]Dr. Jc Norris ERUAHD A micrscopic examination will be performed if indicated. Normal [facility] Comment on above: Performed By: #### Jackelyn BOTELLO UMICRO ####[facility] [address] [place], [place] [address]Dr. Jc Norris Glucose Ql (U) Negative Normal NEGATIVE [facility] Comment on above: Performed By: #### Jackelyn BOTELLO UMICRO ####[facility] [address] [place], [place] [address]Dr. Jc Norris Hemoglobin Ql (U) MODERATE Abnormal NEGATIVE [facility] Comment on above: Performed By: #### Jackelyn BOTELLO UMICRO ####[facility] [address] [place], [place] [address]Dr. Jc Norris Ketones Ql (U) Negative Normal NEGATIVE [facility] Comment on above: Performed By: #### Jackelyn BOTELLO UMICRO ####[facility] [address] [place], [place] [address]Dr. Jc Norris LEUKOCYTES SMALL Abnormal NEGATIVE [facility] Comment on above: Performed By: #### Jackelyn BOTELLO UMICRO ####[facility] [address] [place], [place] [address]Dr. Jc Norris Nitrite Ql (U) Negative Normal NEGATIVE [facility] Comment on above: Performed By: #### Jackelyn BOTELLO UMICRO ####[facility] [address] [place], [place] [address]Dr. Jc Norris pH (U) 6.5 [pH] Normal 5-9 [facility] Comment on above: Performed By: #### SHIMA OSBORNRO ####[facility] [address] [place] [address]Dr. Jc Norris SPEC GRAVITY 1.020 Normal 1.005-<=1.02 5 [facility] Comment on above: Performed By: #### SHIMA OSBORNRO ####[facility] [address] [place] [address]Dr. Jc Norris UA PROTEIN Negative Normal NEGATIVE/ TRACE [facility] Comment on above: Performed By: #### SHIMA OSBORNRO ####[facility] [address] [place] [address]Dr. Jc Norris UR MICRO IND INDICATED Normal [facility] Comment on above: Performed By: #### SHIMA OSBORNRO ####[facility] [address] [place], [place] [address]Dr. Jc Norris Urobilinogen Qn (U) 0.2 {Diamond'U}/dL Normal 0.2 - 1. 0 [facility] Comment on above: Performed By: #### SHIMA OSBORNRO ####[facility] [address] [place], [place] [address]Dr. Jc Norris URINE MICROSCOPIC ONLYon BACTERIA TRACE Abnormal NONE SEEN [facility] Comment on above: Performed By: #### SHIMA OSBORNRO ####[facility] [address] [place], [place] [address]Dr. Jc Norris Bacteria identified Cx Nom (U) NOT INDICATED Normal [facility] Comment on above: Performed By: #### SHIMA OSBORNRO ####[facility] [address] [place] [address]Dr. Jc Norris CAST NONE SEEN Normal NONE SEEN [facility] Comment on above: Performed By: #### SHIMA OSBORNRO ####[facility] [address] [place] [address]Dr. Jc Norris Crystals LM Nom (Urine sed) NONE SEEN Normal NONE SEEN [facility] Comment on above: Performed By: #### SHIMA OSBORNRO ####[facility] [address] [place] [address]Dr. Jc Norris Epithelial cells LM Ql (Urine sed) MODERATE Abnormal NONE SEEN /RARE [facility] Comment on above: Performed By: #### IVET OSBORN ####[facility] [address] [place] [id number] Norris MUCOUS TRACE Abnormal NONE SEEN [facility] Comment on above: Performed By: #### SHIMA OSBORNRO ####[facility] [address] [place] [id number]. Jc Norris RBC 2-5 Abnormal 0-2 [facility] Comment on above: Performed By: #### IVET OSBORN ####[facility] [address] [place] [address]Dr. Jc Norris WBC 2-5 Abnormal NONE SEEN [facility] Comment on above: Performed By: #### IVET OSBORN ####[facility] [address] [place] [address]DrEric Norris HEP B SURFACE ANTIGEN SCREEN on 07-01-2022 HBsAg Screen Negative Normal Negative [facility] Comment on above: Performed By: #### C MP, LIPID, TSH, T7, BNP #### [facility] [address], [place] [address] Dr. Jc Norris HEPATITIS C VIRUS AB W/ REFL EX QUANTon 07-01-2022 HCV AB Non-Reactive Normal Non Reactive [facility] Comment on above: Performed By: #### H CVPCRR ####[facility] [address] [place] [address]Dr. Jc Norris Interpretation: Comment Normal [facility] Comment on above: Result Comment: Not infected with HCV unless early or acute infection is suspected (which may be delayed in an immunocompromised individual), or other evidence exists to indicate HCV infection. Performed By: #### H CVPCRR ####[facility] [address] [place] [address]DrEric Norris RPR QUANTon 07-01-2022 Rapid Plasma Reagin, Quant Non-Reactive Normal NonRea<1:1 [facility] Comment on above: Result Comment: Plejerry se Note: This test does not meet current guidelines for screening and diagnosis of syphilis. This test is intended for following treatment response in patients being treated for syphilis infection. To screen for syphilis infection, a reflex cascade that includes both RPR and a treponema-specific assay should be utilized, such as Treponema pallidum (Syphilis) Screening Loup (885785) or Rapid Plasma Reagin (RPR) Test With Reflex to Quantitative RPR and Confirmatory Treponema pallidum Antibodies (307438). Performed By: #### R PRQ ####[facility] [address] [place] [address]Dr. Jc Norris RUBELLA AB IGGon 07-01-2022 Rubella Antibodies, IgG 3.13 index Normal Immune >0.99 [facility] Comment on above: Result Comment: Non- immune <0.90 Equivocal 0.90 - 0.99 Immune >0.99 Performed By: #### C BC #### [facility] [address] [place] [address] Dr. Jc Norris BOX TEST SENT OUTon 07-01-19 SENT TO REF LAB 06/30/22 Normal [facility] Comment on above: Performed By: #### C MP, LIPID, TSH, T7, BNP #### [facility] [address] [place] [address] Dr. Jc Norris CBC AUTO DIFFon 06-30-2022 BASO # 0.0 103/ul Normal 0.0-0.1 [facility] Comment on above: Performed By: #### C BC #### [facility] [address] [place] [address] Dr. Jc Norris Basophils/100 WBC (Bld) 0.4 % Normal 0.2-2.0 [facility] Comment on above: Performed By: #### C BC #### [facility] [address] [place] [address] Dr. Jc Norris EO # 0.1 103/ul Normal 0.0-0.7 [facility] Comment on above: Performed By: #### C BC #### [facility] [address] [place] [address] [address] Jc Norris Eosinophils/100 WBC (Bld) 0.7 % Critically low 0.9-7.0 [facility] Comment on above: Performed By: #### C BC #### [facility] [address] [place] [address] Dr. Jc Norris Erythrocyte distribution width (RBC) [Ratio] 12.6 % Normal 11.0-15.0 [facility] Comment on above: Performed By: #### C BC #### [facility] [address] [place] [address] Dr. Jc Norris Hematocrit (Bld) [Volume fraction] 40.1 % Normal 36.0-48.0 [facility] Comment on above: Performed By: #### C BC #### [facility] [address] [place] [address] Dr. Jc Norris Hemoglobin (Bld) [Mass/Vol] 13.2 g/dL Normal 12.0-16.0 [facility] Comment on above: Performed By: #### C BC #### [facility] [address] [place] [address] Dr. Jc Norris IG # 0.05 10e3/ul Critically high 0.00-0.03 [facility] [place] Comment on above: Performed By: #### C BC #### [facility] [address] [place] [address] Dr. Jc Norris IG % 0.6 % Critically high 0.0-0.5 [facility] Comment on above: Performed By: #### C BC #### [facility] [address] [place] [address] Dr. Jc Norris LYMPH # 1.3 103/ul Normal 1.2-3.8 [facility] Comment on above: Performed By: #### C BC #### [facility] [address] [place] [address] Dr. Jc Norris Lymphocytes/100 WBC (Bld) 16.3 % Critically low 20.5-60.0 [facility] Comment on above: Performed By: #### C BC #### [facility] [address] [place] [address] Dr. Jc Norris MANUAL DIFF REQ NO Normal [facility] Comment on above: Performed By: #### C BC #### [facility] [address] [place] [address] Dr. Jc Norris MCH (RBC) [Entitic mass] 28.1 pg Normal 26.7-34.0 [facility] Comment on above: Performed By: #### C BC #### [facility] [address] [place] [address] Dr. Jc Norris MCHC (RBC) [Mass/Vol] 32.9 g/dL Normal 29.9-35.2 [facility] Comment on above: Performed By: #### C BC #### [facility] [address] [place] [address] Dr. Jc Norris MCV (RBC) [Entitic vol] 85.5 fL Normal 81.0-99.0 [facility] Comment on above: Performed By: #### C BC #### [facility] [address] [place] [address] Dr. Jc Norris MONO # 0.5 103/ul Normal 0.3-0.8 [facility] Comment on above: Performed By: #### C BC #### [facility] [address] [place] [address] Dr. Jc Norris Monocytes/100 WBC (Bld) 6.4 % Normal 1.7-12.0 [facility] Comment on above: Performed By: #### C BC #### [facility] [address] [place] [address] Dr. Jc Norris NEUT # 6.1 103/ul Normal 1.4-6.5 [facility] Comment on above: Performed By: #### C BC #### [facility] [address] [place] [address] Dr. Jc Norris Neutrophils/100 WBC (Bld) 75.6 % Critically high 43.0-75.0 [facility] Comment on above: Performed By: #### C BC #### [facility] [address] [place] [address] Dr. Jc Norris Platelet mean volume (Bld) [Entitic vol] 10.7 fL Normal 9.5-13.5 [facility] Comment on above: Performed By: #### C BC #### [facility] [address] [place] [address] [address] Jc Norris PLT 213 103/ul Normal 150-450 [facility] Comment on above: Performed By: #### C BC #### [facility] [address] [place] [address] [address] Jc Norris RBC 4.69 106/ul Normal 4.20-5.40 [facility] Comment on above: Performed By: #### C BC #### [facility] [address] [place] [address] [address] Jc Norris WBC 8.1 103/ul Normal 4.0-11.0 [facility] Comment on above: Performed By: #### C BC #### [facility] [address] [place] [address] Dr. Jc Norris CULTURE URINEon 06-30-2022 CULTURE URINE Culture Observations : NO GROWTH. Normal [facility] Comment on above: Performed By: #### U RCX ####[facility] [address] [place] [address]Dr. Jc Norris GLYCOHEMOGLOBIN A1Con 2022 ADA RECOMMENDATION SEE BELOW Normal [place] Comment on above: Result Comment: ADA RECOMMENDED LIMIT 4.0 - 6.0 ADA THERAPEUTIC TARGET < 7.0 ACTION SUGGESTED > 7.0 Performed By: #### C MP, LIPID, TSH, T7, BNP #### [facility] [address] [place] [address] [address] Jc Norris Glucose [Mass/Vol] 105 mg/dL Normal [facility] Comment on above: Performed By: #### C MP, LIPID, TSH, T7, BNP #### [facility] [address] [place] [address] [address] Jc Norris HbA1c (Bld) [Mass fraction] 5.3 % Normal 4.5-6.2 [facility] Comment on above: Performed By: #### C MP, LIPID, TSH, T7, BNP #### [facility] [address] [place] [address] [address] Jc Norris TSHon 06-30-2022 TSH 1.580 uIU/mL Normal 0.358-3.740 [facility] Comment on above: Performed By: #### C MP, LIPID, TSH, T7, BNP #### [facility] [address] [place] [id number] Jc Norris TYPE AND SCREENon 06-30-2022 TYPE AND SCREEN Negative Normal [facility] Comment on above: Performed By: #### T NS ####[facility] [address] [place] [address]Dr. Jc Norris US PREG TVon 06-28-2022 US [...] HEATHER ANDREWS Date: 2022-06-28 15:19 Normal [facility] ABO AND RH TYPEon 06-13-2022 ABO and Rh group Nom (Bld) ABO Rh Typing O Rh Positive Normal [facility] Comment on above: Performed By: #### A BORH ####[facility] [address] [place] [address]Dr. Jc Norris CBC AUTO DIFFon 06-13-2022 BASO # 0.0 103/ul Normal 0.0-0.1 [facility] Comment on above: Performed By: #### C BC #### [facility] [address] [place] [address] [address] Jc Norris Basophils/100 WBC (Bld) 0.2 % Normal 0.2-2.0 [facility] Comment on above: Performed By: #### C BC #### [facility] [address] [place] [address] Dr. Jc Norris EO # 0.1 103/ul Normal 0.0-0.7 [facility] Comment on above: Performed By: #### C BC #### [facility] [address] [place] [address] Dr. Jc Norris Eosinophils/100 WBC (Bld) 0.5 % Critically low 0.9-7.0 [facility] Comment on above: Performed By: #### C BC #### [facility] [address] [place] [address] Dr. Jc Norris Erythrocyte distribution width (RBC) [Ratio] 12.4 % Normal 11.0-15.0 [facility] Comment on above: Performed By: #### C BC #### [facility] [address] [place] [address] Dr. Jc Norris Hematocrit (Bld) [Volume fraction] 41.0 % Normal 36.0-48.0 [facility] Comment on above: Performed By: #### C BC #### [facility] [address] [place] [address] Dr. Jc Norris Hemoglobin (Bld) [Mass/Vol] 13.3 g/dL Normal 12.0-16.0 [facility] Comment on above: Performed By: #### C BC #### [facility] [address] [place] [address] Dr. Jc Norris IG # 0.05 10e3/ul Critically high 0.00-0.03 [facility] [place] Comment on above: Performed By: #### C BC #### [facility] [address] [place] [address] Dr. Jc Norris IG % 0.5 % Normal 0.0-0.5 [facility] Comment on above: Performed By: #### C BC #### [facility] [address] [place] [address] Dr. Jc Norris LYMPH # 1.3 103/ul Normal 1.2-3.8 [facility] Comment on above: Performed By: #### C BC #### [facility] [address] [place] [address] Dr. Jc Norris Lymphocytes/100 WBC (Bld) 12.8 % Critically low 20.5-60.0 [facility] Comment on above: Performed By: #### C BC #### [facility] [address] [place] [address] Dr. Jc Norris MANUAL DIFF REQ NO Normal [facility] Comment on above: Performed By: #### C BC #### [facility] [address] [place] [address] Dr. Jc Norris MCH (RBC) [Entitic mass] 27.9 pg Normal 26.7-34.0 [facility] Comment on above: Performed By: #### C BC #### [facility] [address] [place] [address] Dr. Jc Norris MCHC (RBC) [Mass/Vol] 32.4 g/dL Normal 29.9-35.2 [facility] Comment on above: Performed By: #### C BC #### [facility] [address] [place] [address] Dr. Jc Norris MCV (RBC) [Entitic vol] 86.1 fL Normal 81.0-99.0 [facility] Comment on above: Performed By: #### C BC #### [facility] [address] [place] [address] Dr. Jc Norris MONO # 0.6 103/ul Normal 0.3-0.8 [facility] Comment on above: Performed By: #### C BC #### [facility] [address] [place] [address] Dr. Jc Norris Monocytes/100 WBC (Bld) 6.4 % Normal 1.7-12.0 [facility] Comment on above: Performed By: #### C BC #### [facility] [address] [place] [address] Dr. Jc Norris NEUT # 7.9 103/ul Critically high 1.4-6.5 [facility] Comment on above: Performed By: #### C BC #### [facility] [address] [place] [address] [address] Jc Norris Neutrophils/100 WBC (Bld) 79.6 % Critically high 43.0-75.0 [facility] Comment on above: Performed By: #### C BC #### [facility] [address] [place] [address] [address] Jc Norris Platelet mean volume (Bld) [Entitic vol] 11.1 fL Normal 9.5-13.5 [facility] Comment on above: Performed By: #### C BC #### [facility] [address] [place] [address] [address] Jc Norris PLT 232 103/ul Normal 150-450 [facility] Comment on above: Performed By: #### C BC #### [facility] [address] [place] [address] [address] Jc Norris RBC 4.76 106/ul Normal 4.20-5.40 [facility] Comment on above: Performed By: #### C BC #### [facility] [address] [place] [address] [address] Jc Norris WBC 9.9 103/ul Normal 4.0-11.0 [facility] Comment on above: Performed By: #### C BC #### [facility] [address] [place] [address] [address] Jc Norris CULTURE URINEon 06-13-2022 CULTURE URINE Culture Observations : LIGHT GROWTH OF MIXED GENITAL GENIE. NO POTENTIAL PATHOGENS SEEN. Normal [facility] Comment on above: Performed By: #### U RCX ####[facility] [address] [place] [address]Dr. Jc Norris ER URINE PROFILEon 3 Bilirubin Ql (U) Negative Normal NEGATIVE [facility] Comment on above: Performed By: #### U MICRO, ERUR, PREGU ####[facility] [address] [place] [id number]. Jc Norris Clarity (U) CLEAR Normal CLEAR [facility] Comment on above: Performed By: #### U MICRO, ERUR, PREGU ####[facility] [address] [place] [address]Dr. Kathleenkendall Norris Color (U) LT. YELLOW Normal YELLOW [facility] Comment on above: Performed By: #### U MICRO, ERUR, PREGU ####[facility] [address] [place] [address]Dr. Jc Norris ERUAHD A micrscopic examination will be performed if indicated. Normal [facility] Comment on above: Performed By: #### U MICRO, ERUR, PREGU ####[facility] [address] [place] [address]Dr. Jc Norris Glucose Ql (U) Negative Normal NEGATIVE [facility] Comment on above: Performed By: #### U MICRO, ERUR, PREGU ####[facility] [address] [place] [address]Dr. Jc Norris Hemoglobin Ql (U) Negative Normal NEGATIVE [facility] [place] Comment on above: Performed By: #### U MICRO, ERUR, PREGU ####[facility] [address] [place] [address]Dr. Jc Norris Ketones Ql (U) Negative Normal NEGATIVE [facility] Comment on above: Performed By: #### U MICRO, ERUR, PREGU ####[facility] [address] [place] [address]Dr. Jc Norris LEUKOCYTES MODERATE Abnormal NEGATIVE [facility] Comment on above: Performed By: #### U MICRO, ERUR, PREGU ####[facility] [address] [place] [address]Dr. Jc Norris Nitrite Ql (U) Negative Normal NEGATIVE [facility] Comment on above: Performed By: #### U MICRO, ERUR, PREGU ####[facility] [address] [place] [address]Dr. Jc Norris pH (U) 5.0 [pH] Normal 5-9 [facility] Comment on above: Performed By: #### U MICRO, ERUR, PREGU ####[facility] [address] [place] [address]Dr. Jc Norris SPEC GRAVITY 1.010 Normal 1.005-<=1.02 5 [facility] Comment on above: Performed By: #### U MICRO, ERUR, PREGU ####[facility] [address] [place] [address]Dr. Jc Norris UA PROTEIN Negative Normal NEGATIVE/ TRACE [facility] Comment on above: Performed By: #### U MICRO, ERUR, PREGU ####[facility] [address] [place] [address]Dr. Jc Norris UR MICRO IND INDICATED Normal [facility] Comment on above: Performed By: #### U MICRO, ERUR, PREGU ####[facility] [address] [place] [address]Dr. Jc Norris Urobilinogen Qn (U) 0.2 {Diamond'U}/dL Normal 0.2 - 1. 0 [facility] Comment on above: Performed By: #### U MICRO, ERUR, PREGU ####[facility] [address] [place] [address]Dr. Jc Norris PREG QUANT HCGon 06-13-2022 HCG QUANT 05663 mIU/mL Normal [facility] Comment on above: Performed By: #### C BC #### [facility] [address] [place] [address] [address] Jc Norris HCG RANGE SEE BELOW Normal [facility] Comment on above: Result Comment: 5-50 0.2-1 WEEK 50-500 1-2 WEEKS 100-5,000 2-3 WEEKS 500-10,000 3-4 WEEKS 1,000-50,000 4-5 WEEKS 10,000-100,000 5-6 WEEKS 15,000-200,000 6-8 WEEKS 10,000-100,000 2-3 MONTHS Performed By: #### C BC #### [facility] [address] [place] [address] [address] Jc Norris URon 06-13-2022 , QUAL Positive Abnormal NEGATIVE [facility] Comment on above: Performed By: #### U MICRO, ERUR, PREGU ####[facility] [address] [place], [place] [address]GyDr. Jc Norris PROF 14(COMP METB)on 023 Albumin [Mass/Vol] 3.6 g/dL Normal 3.4-5.0 [place] Comment on above: Performed By: #### C BC #### [facility] [address] [place] [address] [address] Jc Norris Albumin/Globulin [Mass ratio] 1.0 {ratio} Normal [facility] Comment on above: Performed By: #### C BC #### [facility] [address] [place] [address] [address] Jc Norris ALP [Catalytic activity/Vol] 84 U/L Normal 46-116 [facility] Comment on above: Performed By: #### C BC #### [facility] [address] [place] [address] [address] Jc Norris ALT [Catalytic activity/Vol] 18 U/L Normal 14-59 [facility] Comment on above: Performed By: #### C BC #### [facility] [address] [place] [address] [address] Jc Norris Anion gap [Moles/Vol] 10.9 mmol/L Normal [facility] Comment on above: Performed By: #### C BC #### [facility] [address] [place] [address] [address] Jc Norris AST [Catalytic activity/Vol] 13 U/L Critically low 15-37 [facility] Comment on above: Performed By: #### C BC #### [facility] [address] [place] [address] [address] Jc Norris Bilirubin [Mass/Vol] 0.2 mg/dL Normal 0.2-1.0 [facility] Comment on above: Performed By: #### C BC #### [facility] [address] [place] [address] [address] Jc Norris Calcium [Mass/Vol] 9.1 mg/dL Normal 8.5-10.1 [place] Comment on above: Performed By: #### C BC #### [facility] [address] [place] [address] [address] Jc Norris Chloride [Moles/Vol] 102 mmol/L Normal 98-107 [facility] Comment on above: Performed By: #### C BC #### [facility] [address] [place] [address] [address] Jc Norris CO2 [Moles/Vol] 25.8 mmol/L Normal 21.0-32.0 [facility] Comment on above: Performed By: #### C BC #### [facility] [address] [place] [address] [address] Jc Norris Creatinine [Mass/Vol] 0.52 mg/dL Critically low 0.55-1.02 [facility] Comment on above: Performed By: #### C BC #### [facility] [address] [place] [address] [address] Jc Norris EGFR-AF JAMAICAN >60 Normal >=60 [facility] Comment on above: Performed By: #### C BC #### [facility] [address] [place] [address] [address] Jc Norris EGFR-NON AF J[place]ICAN >60 Normal >=60 [facility] Comment on above: Performed By: #### C BC #### [facility] [address] [place] [address] [address] Jc Norris Globulin (S) [Mass/Vol] 3.5 g/dL Normal [facility] Comment on above: Performed By: #### C BC #### [facility] [address] [place] [address] [address] Jc Norris Glucose [Mass/Vol] 104 mg/dL Normal 74-106 [facility] Comment on above: Performed By: #### C BC #### [facility] [address] [place] [address] [address] Jc Norris Potassium [Moles/Vol] 3.7 mmol/L Normal 3.5-5.1 [facility] Comment on above: Performed By: #### C BC #### [facility] [address] [place] [address] [address] Jc Norris Protein [Mass/Vol] 7.1 g/dL Normal 6.4-8.2 [facility] Comment on above: Performed By: #### C BC #### [facility] [address] [place] [address] [address] Jc Norris Sodium [Moles/Vol] 135 mmol/L Critically low 136-145 [facility] Comment on above: Performed By: #### C BC #### [facility] [address] [place] [address] [address] Jc Norris Urea nitrogen [Mass/Vol] 8.0 mg/dL Normal 7.0-18.0 [facility] Comment on above: Performed By: #### C BC #### [facility] [address] [place] [address] [address] Jc Norris Urea nitrogen/Creatinine [Mass ratio] 15.4 mg/mg Normal [facility] Comment on above: Performed By: #### C BC #### [facility] [address] [place] [address] [address] Jc Norris URINE MICROSCOPIC ONLYon BACTERIA NONE SEEN Normal NONE SEEN [facility] Comment on above: Performed By: #### U MICRO, ERUR, PREGU ####[facility] [address] [place] [address]DrEric Norris Bacteria identified Cx Nom (U) INDICATED Normal [facility] Comment on above: Performed By: #### U MICRO, ERUR, PREGU ####[facility] [address] [place] [id number] Norris CAST NONE SEEN Normal NONE SEEN [facility] Comment on above: Performed By: #### U MICRO, ERUR, PREGU ####[facility] [address] [id number] Norris Crystals LM Nom (Urine sed) NONE SEEN Normal NONE SEEN [facility] Comment on above: Performed By: #### U MICRO, ERUR, PREGU ####[facility] [address] [id number] Norris Epithelial cells LM Ql (Urine sed) FEW Abnormal NONE SEEN /RARE [facility] Comment on above: Performed By: #### U MICRO, ERUR, PREGU ####[facility] [address] [address]Dr. Jc Norris MUCOUS TRACE Abnormal NONE SEEN [facility] Comment on above: Performed By: #### U MICRO, ERUR, PREGU ####[facility] [address] [address]Dr. Jc Norris RBC NONE SEEN Abnormal 0-2 [facility] Comment on above: Performed By: #### U MICRO, ERUR, PREGU ####[facility] [address] [address]Dr. Jc Norris WBC 10-20 Abnormal NONE SEEN [facility] Comment on above: Performed By: #### U MICRO, ERUR, PREGU ####[facility] [address] [address]DrEric Norris US PREG TVon 06-13-2022 US PREG [...] NILDA HANDLEY Date: 2022-06-13 14:30 Normal [facility] PREG QUANT HCGon 06-02-2022 HCG QUANT 5289 mIU/mL Normal [facility] Comment on above: Performed By: #### C BC #### [facility] [address] [address] [address] Jc Norris HCG RANGE SEE BELOW Normal [facility] Comment on above: Result Comment: 5-50 0.2-1 WEEK 50-500 1-2 WEEKS 100-5,000 2-3 WEEKS 500-10,000 3-4 WEEKS 1,000-50,000 4-5 WEEKS 10,000-100,000 5-6 WEEKS 15,000-200,000 6-8 WEEKS 10,000-100,000 2-3 MONTHS Performed By: #### C BC #### [facility] [address] [address] [address] Jc Norris PREG QUANT HCGon 05-31-2022 HCG QUANT 3671 mIU/mL Normal [facility] Comment on above: Performed By: #### C MP, LIPID, TSH, T7, BNP #### [facility] [address] [address] [address] Jc Norris HCG RANGE SEE BELOW [facility] Comment on above: Result Comment: 5-50 0.2-1 WEEK 50-500 1-2 WEEKS 100-5,000 2-3 WEEKS 500-10,000 3-4 WEEKS 1,000-50,000 4-5 WEEKS 10,000-100,000 5-6 WEEKS 15,000-200,000 6-8 WEEKS 10,000-100,000 2-3 MONTHS Performed By: #### C MP, LIPID, TSH, T7, BNP #### [facility] [address] [place] [address] Dr. Jc Norris PREG QUANT HCGon 05-29-2022 HCG QUANT 1965 mIU/mL Normal [facility] Comment on above: Performed By: #### P REGQNT ####[facility] [address] [address]Dr. Jc Norris HCG RANGE SEE BELOW Normal [facility] Comment on above: Result Comment: 5-50 0.2-1 WEEK 50-500 1-2 WEEKS 100-5,000 2-3 WEEKS 500-10,000 3-4 WEEKS 1,000-50,000 4-5 WEEKS 10,000-100,000 5-6 WEEKS 15,000-200,000 6-8 WEEKS 10,000-100,000 2-3 MONTHS Performed By: #### P REGQNT ####[facility] [address] [place], [place] [address]Dr. Jc Norris US PELVIS AND TRANSVAGon US [...] NILDA HANDLEY Date: 2022-05-04 14:31 Normal [facility] CULTURE URINEon 04-07-2022 CULTURE URINE Isolate [...] Trimethoprim/Sulfamet hoxazole >=320 R F Normal [facility] Comment on above: Performed By: #### U RCX ####[facility] [address] [place], [place] [address]HxDr. Jc Norris ER URINE PROFILEon 3 Bilirubin Ql (U) Negative Normal NEGATIVE [facility] Comment on above: Performed By: #### C MP, LIPID, TSH, T7, BNP #### [facility] [address], [place] [address] Dr. Jc Norris Clarity (U) SL CLOUDY Abnormal CLEAR [facility] Comment on above: Performed By: #### C MP, LIPID, TSH, T7, BNP #### [facility] [address] [address] [address] Jc Norris Color (U) LT. YELLOW Normal YELLOW [facility] Comment on above: Performed By: #### C MP, LIPID, TSH, T7, BNP #### [facility] [address] [address] [address] Jc BARKER A micrscopic examination will be performed if indicated. Normal [facility] Comment on above: Performed By: #### C MP, LIPID, TSH, T7, BNP #### [facility] [address] [address] [address] Jc Norris Glucose Ql (U) Negative Normal NEGATIVE [facility] Comment on above: Performed By: #### C MP, LIPID, TSH, T7, BNP #### [facility] [address] [place] [address] Dr. Jc Norris Hemoglobin Ql (U) MODERATE Abnormal NEGATIVE [facility] Comment on above: Performed By: #### C MP, LIPID, TSH, T7, BNP #### [facility] [address] [address] [address] Jc Norris Ketones Ql (U) Negative Normal NEGATIVE [facility] Comment on above: Performed By: #### C MP, LIPID, TSH, T7, BNP #### [facility] [address] [address] [address] Jc Norris LEUKOCYTES SMALL Abnormal NEGATIVE [facility] Comment on above: Performed By: #### C MP, LIPID, TSH, T7, BNP #### [facility] [address] [address] [address] Jc Norris Nitrite Ql (U) Positive Abnormal NEGATIVE [facility] Comment on above: Performed By: #### C MP, LIPID, TSH, T7, BNP #### [facility] [address] [address] [address] Jc Norris pH (U) 5.5 [pH] Normal 5-9 [facility] Comment on above: Performed By: #### C MP, LIPID, TSH, T7, BNP #### [facility] [address] [address] [address] Jc Norris SPEC GRAVITY 1.025 Normal 1.005-<=1.02 5 [facility] Comment on above: Performed By: #### C MP, LIPID, TSH, T7, BNP #### [facility] [address] [place] [address] Dr. Jc Norris UA PROTEIN Negative Normal NEGATIVE/ TRACE [facility] Comment on above: Performed By: #### C MP, LIPID, TSH, T7, BNP #### [facility] [address] [place] [address] Dr. Jc Norris UR MICRO IND INDICATED Normal [facility] Comment on above: Performed By: #### C MP, LIPID, TSH, T7, BNP #### [facility] [address] [place] [address] Dr. Jc Norris Urobilinogen Qn (U) 0.2 {Diamond'U}/dL Normal 0.2 - 1. 0 [facility] Comment on above: Performed By: #### C MP, LIPID, TSH, T7, BNP #### [facility] [address] [place] [address] Dr. Jc Norris URon 04-05-2022 , QUAL Negative Normal NEGATIVE [facility] Comment on above: Performed By: #### C MP, LIPID, TSH, T7, BNP #### [facility] [address] [place] [address] Dr. Jc Norris URINE MICROSCOPIC ONLYon BACTERIA MODERATE Abnormal NONE SEEN [facility] Comment on above: Performed By: #### C MP, LIPID, TSH, T7, BNP #### [facility] [address] [place] [address] Dr. Jc Norris Bacteria identified Cx Nom (U) INDICATED Normal [facility] Comment on above: Performed By: #### C MP, LIPID, TSH, T7, BNP #### [facility] [address] [place] [address] Dr. Jc Norris CAST NONE SEEN Normal NONE SEEN [facility] Comment on above: Performed By: #### C MP, LIPID, TSH, T7, BNP #### [facility] [address] [address] [address] Jc Norris Crystals LM Nom (Urine sed) NONE SEEN Normal NONE SEEN [facility] Comment on above: Performed By: #### C MP, LIPID, TSH, T7, BNP #### [facility] [address] [address] [address] Jc Norris Epithelial cells LM Ql (Urine sed) FEW Abnormal NONE SEEN /RARE [facility] Comment on above: Performed By: #### C MP, LIPID, TSH, T7, BNP #### [facility] [address] [address] [address] Jc Norris MUCOUS TRACE Abnormal NONE SEEN [facility] Comment on above: Performed By: #### C MP, LIPID, TSH, T7, BNP #### [facility] [address] [address] [address] Jc Norris RBC 50-75 Abnormal 0-2 [facility] Comment on above: Performed By: #### C MP, LIPID, TSH, T7, BNP #### [facility] [address] [address] [address] Jc Norris WBC 75-100 Abnormal NONE SEEN [facility] Comment on above: Performed By: #### C MP, LIPID, TSH, T7, BNP #### [facility] [address] [place] [address] Dr. Jc [place] 03-07-19 23 MRI [facility] WO CON EXAMINATION: MRI [facility] WO CON HISTORY: Lumbago with sciatica [...] NILDA HANDLEY Date: 2022-03-07 06:17 Normal [facility] CARDIAC KERI 3-6on 2 CK [Catalytic activity/Vol] 64 U/L Normal 26-192 [facility] Comment on above: Performed By: #### C MP, LIPID, TSH, T7, BNP #### [facility] [address] [place] [address] Dr. Jc Norris CK.MB [Mass/Vol] 0.81 ng/mL Normal <=3.60 [facility] Comment on above: Performed By: #### C MP, LIPID, TSH, T7, BNP #### [facility] [address] [place] [address] Dr. Jc Norris HSTROP 4.3 pg/mL Normal 4.0-51.3 [facility] Comment on above: Result Comment: CUT- OFF POINTS HAVE BEEN ESTABLISHED BASED ON THE FOURTH UNIVERSAL DEFINITIONS OF MYOCARDIAL INFARCTION. THE UPPER REFERENCE LIMIT (URL) OF TROPONIN, DEFINED THE 99TH PERCENTILE OF cTnI DISTRIBUTION IN A REFERENCE POPULATION, HAS BEEN CONFIRMED THE DECISION THRESHOLD FOR MD DIAGNOSIS. Performed By: #### C MP, LIPID, TSH, T7, BNP #### [facility] [address] [place] [address] Dr. Jc Norris CARDIAC KERI ADMITon 022 CK [Catalytic activity/Vol] 80 U/L Normal 26-192 [facility] Comment on above: Performed By: #### C BC #### [facility] [address] [place] [address] Dr. Jc Norris CK.MB [Mass/Vol] 0.89 ng/mL Normal <=3.60 [facility] Comment on above: Performed By: #### C BC #### [facility] [address] [place] [address] Dr. Jc Norris HSTROP 4.3 pg/mL Normal 4.0-51.3 [facility] Comment on above: Result Comment: CUT- OFF POINTS HAVE BEEN ESTABLISHED BASED ON THE FOURTH UNIVERSAL DEFINITIONS OF MYOCARDIAL INFARCTION. THE UPPER REFERENCE LIMIT (URL) OF TROPONIN, DEFINED THE 99TH PERCENTILE OF cTnI DISTRIBUTION IN A REFERENCE POPULATION, HAS BEEN CONFIRMED THE DECISION THRESHOLD FOR MD DIAGNOSIS. Performed By: #### C BC #### [facility] [address] [place] [address] Dr. Jc Norris ANITHA 21 ng/mL Normal 9-82 [facility] Comment on above: Performed By: #### C BC #### [facility] [address] [place] [address] Dr. Jc Norris CBC AUTO DIFFon 12-26-2021 BASO # 0.1 103/ul Normal 0.0-0.1 [facility] Comment on above: Performed By: #### C BC #### [facility] [address] [place] [address] Dr. Jc Norris Basophils/100 WBC (Bld) 0.5 % Normal 0.2-2.0 [facility] Comment on above: Performed By: #### C BC #### [facility] [address] [place] [address] Dr. Jc Norris EO # 0.3 103/ul Normal 0.0-0.7 [facility] Comment on above: Performed By: #### C BC #### [facility] [address] [place] [address] Dr. Jc Norris Eosinophils/100 WBC (Bld) 2.9 % Normal 0.9-7.0 [facility] Comment on above: Performed By: #### C BC #### [facility] [address] [place] [address] Dr. Jc Norris Erythrocyte distribution width (RBC) [Ratio] 12.7 % Normal 11.0-15.0 [facility] Comment on above: Performed By: #### C BC #### [facility] [address] [place] [address] Dr. Jc Norris Hematocrit (Bld) [Volume fraction] 40.1 % Normal 36.0-48.0 [facility] Comment on above: Performed By: #### C BC #### [facility] [address] [place] [address] Dr. Jc Norris Hemoglobin (Bld) [Mass/Vol] 13.4 g/dL Normal 12.0-16.0 [facility] Comment on above: Performed By: #### C BC #### [facility] [address] [place] [address] Dr. Jc Norris IG # 0.03 10e3/ul Normal 0.00-0.03 [facility] Comment on above: Performed By: #### C BC #### [facility] [address] [place] [address] Dr. Jc Norris IG % 0.3 % Normal 0.0-0.5 [facility] Comment on above: Performed By: #### C BC #### [facility] [address] [place] [address] Dr. Jc Norris LYMPH # 3.4 103/ul Normal 1.2-3.8 [facility] Comment on above: Performed By: #### C BC #### [facility] [address] [place] [address] Dr. Jc Norris Lymphocytes/100 WBC (Bld) 35.9 % Normal 20.5-60.0 [facility] Comment on above: Performed By: #### C BC #### [facility] [address] [place] [address] Dr. Jc Norris MANUAL DIFF REQ NO Normal [facility] Comment on above: Performed By: #### C BC #### [facility] [address] [place] [address] Dr. Jc Norris MCH (RBC) [Entitic mass] 28.8 pg Normal 26.7-34.0 [facility] Comment on above: Performed By: #### C BC #### [facility] [address] [place] [address] Dr. Jc Norris MCHC (RBC) [Mass/Vol] 33.4 g/dL Normal 29.9-35.2 [facility] Comment on above: Performed By: #### C BC #### [facility] [address] [place] [address] Dr. Jc Norris MCV (RBC) [Entitic vol] 86.1 fL Normal 81.0-99.0 [facility] Comment on above: Performed By: #### C BC #### [facility] [address] [place] [address] Dr. Jc Norris MONO # 0.9 103/ul Critically high 0.3-0.8 [facility] Comment on above: Performed By: #### C BC #### [facility] [address] [place] [address] Dr. Jc Norris Monocytes/100 WBC (Bld) 9.1 % Normal 1.7-12.0 [facility] Comment on above: Performed By: #### C BC #### [facility] [address] [place] [address] Dr. Jc Norris NEUT # 4.8 103/ul Normal 1.4-6.5 [facility] Comment on above: Performed By: #### C BC #### [facility] [address] [place] [address] Dr. Jc Norris Neutrophils/100 WBC (Bld) 51.3 % Normal 43.0-75.0 [facility] Comment on above: Performed By: #### C BC #### [facility] [address] [place] [address] Dr. Jc Norris Platelet mean volume (Bld) [Entitic vol] 10.9 fL Normal 9.5-13.5 [facility] Comment on above: Performed By: #### C BC #### [facility] [address] [place] [address] Dr. Jc Norris PLT 256 103/ul Normal 150-450 [facility] Comment on above: Performed By: #### C BC #### [facility] [address] [place] [address] Dr. Jc Norris RBC 4.66 106/ul Normal 4.20-5.40 [facility] Comment on above: Performed By: #### C BC #### [facility] [address] [address] [address] Jc Norris WBC 9.4 103/ul Normal 4.0-11.0 [facility] Comment on above: Performed By: #### C BC #### [facility] [address] [address] [address] Jc Norris D-DIMERon 12-26-2021 D-DIMER 0.22 mg/L FEU Normal <=0.59 [facility] Comment on above: Performed By: #### C BC #### [facility] [address] [address] [address] Jc Norris D-DIMER COMMENTS SEE BELOW Normal [facility] Comment on above: Result Comment: Incr eases [...] hospitalization. Performed By: #### C BC #### [facility] [address] [place] [address] Dr. Jc Norris PROF CHEM 8 (BAS METB)on Anion gap [Moles/Vol] 8.7 mmol/L Normal [facility] Comment on above: Performed By: #### C BC #### [facility] [address] [place] [address] Dr. Jc Norris Calcium [Mass/Vol] 9.2 mg/dL Normal 8.5-10.1 [facility] Comment on above: Performed By: #### C BC #### [facility] [address] [place] [address] Dr. Jc Norris Chloride [Moles/Vol] 105 mmol/L Normal 98-107 [facility] Comment on above: Performed By: #### C BC #### [facility] [address] [address] [address] Jc Norris CO2 [Moles/Vol] 27.9 mmol/L Normal 21.0-32.0 [facility] Comment on above: Performed By: #### C BC #### [facility] [address] [address] [address] Jc Norris Creatinine [Mass/Vol] 0.67 mg/dL Normal 0.55-1.02 [facility] Comment on above: Performed By: #### C BC #### [facility] [address] [address] [address] Jc Norris EGFR-AF JAMAICAN >60 Normal >=60 [facility] Comment on above: Performed By: #### C BC #### [facility] [address] [place] [address] Dr. Jc Norris EGFR-NON AF J[place]ICAN >60 Normal >=60 [facility] Comment on above: Performed By: #### C BC #### [facility] [address] [address] [address] Jc Norris Glucose [Mass/Vol] 86 mg/dL Normal 74-106 [facility] Comment on above: Performed By: #### C BC #### [facility] [address] [address] [address] Jc Norris Potassium [Moles/Vol] 3.6 mmol/L Normal 3.5-5.1 [facility] Comment on above: Performed By: #### C BC #### [facility] [address] [address] [address] Jc Norris Sodium [Moles/Vol] 138 mmol/L Normal 136-145 [facility] Comment on above: Performed By: #### C BC #### [facility] [address] [place] [address] Dr. Jc Norris Urea nitrogen [Mass/Vol] 11.0 mg/dL Normal 7.0-18.0 [facility] Comment on above: Performed By: #### C BC #### [facility] [address] [place] [address] Dr. Jc Norris Urea nitrogen/Creatinine [Mass ratio] 16.4 mg/mg Normal [facility] Comment on above: Performed By: #### C #### [facility] [address] [address] [address] Jc Norris XR CHEST 2 Von [...] by: ALEK MONTELONGO Date: 2021-12-25 23:54 Normal [facility] ECHOCARDIO M/2D COMPLETEon 1 ECHOCARDIO M/2D COMPLETE Patient: MARIANGEL CORTES Exam Date: 12/06/2021 : 1995 Gender:F Ordering : DR LONA GOMEZ . Admission #: [id number] Family : Order #: [id number] CLICK HERE TO VIEW EXAM ECHOCARDIOGRAM REPORT [...] M.D. on 12/11/2021 at 15:55 Normal [facility] BNPon 11-24-2021 Natriuretic peptide B (Bld) [Mass/Vol] 7.0 pg/mL Normal <=450.0 [facility] Comment on above: Performed By: #### C MP, LIPID, TSH, T7, BNP #### [facility] [address], [place] [address] Dr. Jc Norris CBC AUTO DIFFon 11-24-2021 BASO # 0.0 103/ul Normal 0.0-0.1 [facility] Comment on above: Performed By: #### C BC ####[facility] [address] [id number] Norris Basophils/100 WBC (Bld) 0.3 % Normal 0.2-2.0 [facility] Comment on above: Performed By: #### C BC ####[facility] [address] [id number] Norris EO # 0.1 103/ul Normal 0.0-0.7 [facility] Comment on above: Performed By: #### C BC ####[facility] [address] [id number] Norris Eosinophils/100 WBC (Bld) 2.1 % Normal 0.9-7.0 [facility] Comment on above: Performed By: #### C BC ####[facility] [address] [id number] Norris Erythrocyte distribution width (RBC) [Ratio] 12.9 % Normal 11.0-15.0 [facility] Comment on above: Performed By: #### C BC ####[facility] [address] [address]Dr. Jc Norris Hematocrit (Bld) [Volume fraction] 42.3 % Normal 36.0-48.0 [facility] Comment on above: Performed By: #### C BC ####[facility] [address] [address]Dr. Jc Norris Hemoglobin (Bld) [Mass/Vol] 13.6 g/dL Normal 12.0-16.0 [facility] Comment on above: Performed By: #### C BC ####[facility] [address] [place], [place] [address]Dr. Kathleenkendall Norris IG # 0.03 10e3/ul Normal 0.00-0.03 [facility] Comment on above: Performed By: #### C BC ####[facility] [address] [place], [place] [address]Dr. Jc Norris IG % 0.5 % Normal 0.0-0.5 [facility] Comment on above: Performed By: #### C BC ####[facility] [address] [place], [place] [address]DrEric Jc Jr LYMPH # 1.7 103/ul Normal 1.2-3.8 [facility] Comment on above: Performed By: #### C BC ####[facility] [address] [place], [place] [address]DrEric Kathleenkendall Norris Lymphocytes/100 WBC (Bld) 29.9 % Normal 20.5-60.0 [facility] Comment on above: Performed By: #### C BC ####[facility] [address] [place], [place] [address]DrEric Kathleenkendall Norris MANUAL DIFF REQ NO Normal [facility] Comment on above: Performed By: #### C BC ####[facility] [address] [address]Dr. Jc Norris MCH (RBC) [Entitic mass] 28.7 pg Normal 26.7-34.0 [facility] Comment on above: Performed By: #### C BC ####[facility] [address] [id number]. Jc Jr MCHC (RBC) [Mass/Vol] 32.2 g/dL Normal 29.9-35.2 [facility] Comment on above: Performed By: #### C BC ####[facility] [address] [id number] Norris MCV (RBC) [Entitic vol] 89.2 fL Normal 81.0-99.0 [facility] Comment on above: Performed By: #### C BC ####[facility] [address] [place], [place] [id number] Norris MONO # 0.4 103/ul Normal 0.3-0.8 [facility] Comment on above: Performed By: #### C BC ####[facility] [address] [place], [place] [address]Dr. Jc Norris Monocytes/100 WBC (Bld) 7.4 % Normal 1.7-12.0 [facility] Comment on above: Performed By: #### C BC ####[facility] [address] [place], [place] [id number]. Jc Norris NEUT # 3.5 103/ul Normal 1.4-6.5 [facility] Comment on above: Performed By: #### C BC ####[facility] [address] [place], [place] [id number] Norris Neutrophils/100 WBC (Bld) 59.8 % Normal 43.0-75.0 [facility] Comment on above: Performed By: #### C BC ####[facility] [address] [place], [place] [id number] Norris Platelet mean volume (Bld) [Entitic vol] 10.3 fL Normal 9.5-13.5 [facility] Comment on above: Performed By: #### C BC ####[facility] [address] [place], [place] [id number] Norris PLT 241 103/ul Normal 150-450 [facility] Comment on above: Performed By: #### C BC ####[facility] [address] [address]Dr. Jc Norris RBC 4.74 106/ul Normal 4.20-5.40 [facility] Comment on above: Performed By: #### C BC ####[facility] [address] [id number]. Jc Norris WBC 5.8 103/ul Normal 4.0-11.0 [facility] Comment on above: Performed By: #### C BC ####[facility] [address] [address]Dr. Jc Norris FREE THYROXINE INDEX T7on FTI 2.00 Normal 1.30-4.50 [facility] Comment on above: Performed By: #### C MP, LIPID, TSH, T7, BNP #### [facility] [address] [address] [address] Jc Norris T3U 29.0 % Critically low 30.0-39.0 [facility] Comment on above: Performed By: #### C MP, LIPID, TSH, T7, BNP #### [facility] [address] [address] [address] Jc Norris T4 [Mass/Vol] 6.90 ug/dL Normal 4.80-13.90 [facility] Comment on above: Performed By: #### C MP, LIPID, TSH, T7, BNP #### [facility] [address] [address] [address] Jc Norris GLYCOHEMOGLOBIN A1Con 2021 ADA RECOMMENDATION SEE BELOW Normal [facility] Comment on above: Result Comment: ADA RECOMMENDED LIMIT 4.0 - 6.0 ADA THERAPEUTIC TARGET < 7.0 ACTION SUGGESTED > 7.0 Performed By: #### A 1C ####[facility] [address] [address]DrEric Norris Glucose [Mass/Vol] 103 mg/dL Normal [facility] Comment on above: Performed By: #### A 1C ####[facility] [address] [address]DrEric Norris HbA1c (Bld) [Mass fraction] 5.2 % Normal 4.5-6.2 [facility] Comment on above: Performed By: #### A 1C ####[facility] [address] [address]Dr. Jc Norris IRONon 11-24-2021 Iron [Mass/Vol] 45.0 ug/dL Critically low 50.0-170.0 [facility] Comment on above: Performed By: #### I KINA ####[facility] [address] [address]Dr. Jc Norris LIPID PROFILEon 11-24-2021 CHOL-HDL RATIO NORM SEE BELOW Normal [facility] Comment on above: Result Comment: 3.3 - 4.4 LOW RISK 4.4 - 7.1 AVERAGE RISK 7.1 - 11.0 MODERATE RISK >11.0 HIGH RISK Performed By: #### C MP, LIPID, TSH, T7, BNP #### [facility] [address] [place] [address] Dr. Jc Norris Cholesterol [Mass/Vol] 169 mg/dL Normal <=200 [facility] Comment on above: Performed By: #### C MP, LIPID, TSH, T7, BNP #### [facility] [address] [place] [address] Dr. Jc Norris Cholesterol in HDL [Mass/Vol] 44 mg/dL Normal 40-60 [facility] Comment on above: Performed By: #### C MP, LIPID, TSH, T7, BNP #### [facility] [address] [place] [address] Dr. Jc Norris Cholesterol in LDL [Mass/Vol] 106.2 mg/dL Normal [facility] Comment on above: Performed By: #### C MP, LIPID, TSH, T7, BNP #### [facility] [address] [address] [address] Jc Norris Cholesterol.total/Chol esterol in HDL [Mass ratio] 3.8 {ratio} Normal [facility] Comment on above: Performed By: #### C MP, LIPID, TSH, T7, BNP #### [facility] [address] [address] [address] Jc Norris HDL NORMAL > or = 60 mg/dl - LO W CARDIOVASCULAR RISK <40 mg/dl - HIGH CARDIOVASCULAR RISK Normal [facility] Comment on above: Performed By: #### C MP, LIPID, TSH, T7, BNP #### [facility] [address] [address] [address] Jc Norris LDL CALC NORMAL SEE BELOW Normal [facility] Comment on above: Result Comment: <100 mg/dl OPTIMAL 100 - 129 mg/dl NEAR OR ABOVE OPTIMAL 130 - 159 mg/dl BORDERLINE HIGH 160 - 189 mg/dl HIGH >190 mg/dl VERY HIGH Performed By: #### C MP, LIPID, TSH, T7, BNP #### [facility] [address] [address] [address] Jc Norris Triglyceride [Mass/Vol] 94 mg/dL Normal <=150 [facility] Comment on above: Performed By: #### C MP, LIPID, TSH, T7, BNP #### [facility] [address] [address] [address] Jc Norris VLDL CALC 18.8 mg/dL Normal [facility] Comment on above: Performed By: #### C MP, LIPID, TSH, T7, BNP #### [facility] [address] [address] [address] Jc Norris PROF 14(COMP METB)on 022 Albumin [Mass/Vol] 3.8 g/dL Normal 3.4-5.0 [place] Comment on above: Performed By: #### C MP, LIPID, TSH, T7, BNP #### [facility] [address] [address] [address] Jc Norris Albumin/Globulin [Mass ratio] 1.1 {ratio} Normal [facility] Comment on above: Performed By: #### C MP, LIPID, TSH, T7, BNP #### [facility] [address] [address] [address] Jc Norris ALP [Catalytic activity/Vol] 109 U/L Normal 46-116 [facility] Comment on above: Performed By: #### C MP, LIPID, TSH, T7, BNP #### [facility] [address] [address] [address] Jc Norris ALT [Catalytic activity/Vol] 20 U/L Normal 14-59 [facility] Comment on above: Performed By: #### C MP, LIPID, TSH, T7, BNP #### [facility] [address] [place] [address] Dr. Jc Norris Anion gap [Moles/Vol] 8.3 mmol/L Normal [facility] Comment on above: Performed By: #### C MP, LIPID, TSH, T7, BNP #### [facility] [address] [place] [address] Dr. Jc Norris AST [Catalytic activity/Vol] 12 U/L Critically low 15-37 [facility] Comment on above: Performed By: #### C MP, LIPID, TSH, T7, BNP #### [facility] [address] [place] [address] Dr. Jc Norris Bilirubin [Mass/Vol] 0.3 mg/dL Normal 0.2-1.0 [facility] Comment on above: Performed By: #### C MP, LIPID, TSH, T7, BNP #### [facility] [address] [place] [address] Dr. Jc Norris Calcium [Mass/Vol] 8.9 mg/dL Normal 8.5-10.1 [place] Comment on above: Performed By: #### C MP, LIPID, TSH, T7, BNP #### [facility] [address] [place] [address] Dr. Jc Norris Chloride [Moles/Vol] 105 mmol/L Normal 98-107 [facility] Comment on above: Performed By: #### C MP, LIPID, TSH, T7, BNP #### [facility] [address] [place] [address] Dr. Jc Norris CO2 [Moles/Vol] 29.8 mmol/L Normal 21.0-32.0 [facility] Comment on above: Performed By: #### C MP, LIPID, TSH, T7, BNP #### [facility] [address] [address] [address] Jc Norris Creatinine [Mass/Vol] 0.67 mg/dL Normal 0.55-1.02 [facility] Comment on above: Performed By: #### C MP, LIPID, TSH, T7, BNP #### [facility] [address] [address] [address] Jc Norris EGFR-AF JAMAICAN >60 Normal >=60 [facility] Comment on above: Performed By: #### C MP, LIPID, TSH, T7, BNP #### [facility] [address] [address] [address] Jc Norris EGFR-NON AF J[place]ICAN >60 Normal >=60 [facility] Comment on above: Performed By: #### C MP, LIPID, TSH, T7, BNP #### [facility] [address] [place] [address] Dr. Jc Norris Globulin (S) [Mass/Vol] 3.5 g/dL Normal [facility] Comment on above: Performed By: #### C MP, LIPID, TSH, T7, BNP #### [facility] [address] [place] [address] Dr. Jc Norris Glucose [Mass/Vol] 107 mg/dL Critically high 74-106 [facility] Comment on above: Performed By: #### C MP, LIPID, TSH, T7, BNP #### [facility] [address] [address] [address] Jc Norris Potassium [Moles/Vol] 4.1 mmol/L Normal 3.5-5.1 [facility] Comment on above: Performed By: #### C MP, LIPID, TSH, T7, BNP #### [facility] [address] [address] [address] Jc Norris Protein [Mass/Vol] 7.3 g/dL Normal 6.4-8.2 [place] Comment on above: Performed By: #### C MP, LIPID, TSH, T7, BNP #### [facility] [address] [address] [address] Jc Norris Sodium [Moles/Vol] 139 mmol/L Normal 136-145 [place] Comment on above: Performed By: #### C MP, LIPID, TSH, T7, BNP #### [facility] [address] [place] [address] Dr. Jc Norris Urea nitrogen [Mass/Vol] 11.0 mg/dL Normal 7.0-18.0 [facility] Comment on above: Performed By: #### C MP, LIPID, TSH, T7, BNP #### [facility] [address] [place] [address] Dr. Jc Norris Urea nitrogen/Creatinine [Mass ratio] 16.4 mg/mg Normal [facility] Comment on above: Performed By: #### C MP, LIPID, TSH, T7, BNP #### [facility] [address] [place] [address] Dr. Jc Norris TSHon 11-24-2021 TSH 1.465 uIU/mL Normal 0.358-3.740 [facility] Comment on above: Performed By: #### C MP, LIPID, TSH, T7, BNP #### [facility] [address] [place] [address] Dr. Jc Norris T4 LABCORPon 10-31-2021 T4 [Mass/Vol] 5.8 ug/dL Normal 4.5-12.0 [facility] Comment on above: Performed By: #### C BC #### [facility] [address] [place] [address] Dr. Jc Norris CBC AUTO DIFFon 10-30-2021 BASO # 0.1 103/ul Normal 0.0-0.1 [facility] Comment on above: Performed By: #### C BC #### [facility] [address] [place] [address] Dr. Jc Norris Basophils/100 WBC (Bld) 0.4 % Normal 0.2-2.0 [facility] Comment on above: Performed By: #### C BC #### [facility] [address] [place] [address] Dr. Jc Norris EO # 0.2 103/ul Normal 0.0-0.7 [facility] Comment on above: Performed By: #### C BC #### [facility] [address] [place] [address] Dr. Jc Norris Eosinophils/100 WBC (Bld) 1.4 % Normal 0.9-7.0 [facility] Comment on above: Performed By: #### C BC #### [facility] [address] [place] [address] Dr. Jc Norris Erythrocyte distribution width (RBC) [Ratio] 13.0 % Normal 11.0-15.0 [facility] Comment on above: Performed By: #### C BC #### [facility] [address] [place] [address] Dr. Jc Norris Hematocrit (Bld) [Volume fraction] 42.4 % Normal 36.0-48.0 [facility] Comment on above: Performed By: #### C BC #### [facility] [address] [place] [address] Dr. Jc Norris Hemoglobin (Bld) [Mass/Vol] 13.2 g/dL Normal 12.0-16.0 [facility] Comment on above: Performed By: #### C BC #### [facility] [address] [place] [address] Dr. Jc Norris IG # 0.18 10e3/ul Critically high 0.00-0.03 [facility] Comment on above: Performed By: #### C BC #### [facility] [address] [place] [address] Dr. Jc Norris IG % 1.4 % Critically high 0.0-0.5 [facility] Comment on above: Performed By: #### C BC #### [facility] [address] [place] [address] Dr. Jc Norris LYMPH # 4.2 103/ul Critically high 1.2-3.8 [facility] Comment on above: Performed By: #### C BC #### [facility] [address] [place] [address] Dr. Jc Norris Lymphocytes/100 WBC (Bld) 31.5 % Normal 20.5-60.0 [facility] Comment on above: Performed By: #### C BC #### [facility] [address] [place] [address] Dr. Jc Norris MANUAL DIFF REQ NO Normal [facility] Comment on above: Performed By: #### C BC #### [facility] [address] [place] [address] Dr. Jc Norris MCH (RBC) [Entitic mass] 27.9 pg Normal 26.7-34.0 [facility] Comment on above: Performed By: #### C BC #### [facility] [address] [place] [address] Dr. Jc Norris MCHC (RBC) [Mass/Vol] 31.1 g/dL Normal 29.9-35.2 [facility] Comment on above: Performed By: #### C BC #### [facility] [address] [place] [address] Dr. Jc Norris MCV (RBC) [Entitic vol] 89.6 fL Normal 81.0-99.0 [facility] Comment on above: Performed By: #### C BC #### [facility] [address] [place] [address] Dr. Jc Norris MONO # 1.3 103/ul Critically high 0.3-0.8 [facility] Comment on above: Performed By: #### C BC #### [facility] [address] [place] [address] Dr. Jc Norris Monocytes/100 WBC (Bld) 9.9 % Normal 1.7-12.0 [facility] Comment on above: Performed By: #### C BC #### [facility] [address] [place] [address] Dr. Jc Norris NEUT # 7.4 103/ul Critically high 1.4-6.5 [facility] Comment on above: Performed By: #### C BC #### [facility] [address] [place] [address] Dr. Jc Norris Neutrophils/100 WBC (Bld) 55.4 % Normal 43.0-75.0 [facility] Comment on above: Performed By: #### C BC #### [facility] [address] [place] [address] Dr. Jc Norris Platelet mean volume (Bld) [Entitic vol] 10.2 fL Normal 9.5-13.5 [facility] Comment on above: Performed By: #### C BC #### [facility] [address] [place] [address] Dr. Jc Norris PLT 265 103/ul Normal 150-450 [facility] Comment on above: Performed By: #### C BC #### [facility] [address] [place] [address] Dr. Jc Norris RBC 4.73 106/ul Normal 4.20-5.40 [facility] Comment on above: Performed By: #### C BC #### [facility] [address] [place] [address] Dr. Jc Norris WBC 13.3 103/ul Critically high 4.0-11.0 [facility] Comment on above: Performed By: #### C BC #### [facility] [address] [place] [address] Dr. Jc Norris FREE T3on 10-30-2021 FREE T3 2.18 pg/mlL Normal 2.18-3.98 [facility] Comment on above: Performed By: #### C MP, LIPID, TSH, T7, BNP #### [facility] [address] [place] [address] Dr. Jc Norris PROF 14(COMP METB)on 022 Albumin [Mass/Vol] 3.6 g/dL Normal 3.4-5.0 [place] Comment on above: Performed By: #### C MP, LIPID, TSH, T7, BNP #### [facility] [address] [place] [address] Dr. Jc Norris Albumin/Globulin [Mass ratio] 1.1 {ratio} Normal [facility] Comment on above: Performed By: #### C MP, LIPID, TSH, T7, BNP #### [facility] [address] [place] [address] Dr. Jc Norris ALP [Catalytic activity/Vol] 93 U/L Normal 46-116 [facility] Comment on above: Performed By: #### C MP, LIPID, TSH, T7, BNP #### [facility] [address] [place] [address] Dr. Jc Norris ALT [Catalytic activity/Vol] 22 U/L Normal 14-59 [facility] Comment on above: Performed By: #### C MP, LIPID, TSH, T7, BNP #### [facility] [address] [place] [address] Dr. Jc Norris Anion gap [Moles/Vol] 9.4 mmol/L Normal [facility] Comment on above: Performed By: #### C MP, LIPID, TSH, T7, BNP #### [facility] [address] [place] [address] Dr. Jc Norris AST [Catalytic activity/Vol] 13 U/L Critically low 15-37 [facility] Comment on above: Performed By: #### C MP, LIPID, TSH, T7, BNP #### [facility] [address] [place] [address] Dr. Jc Norris Bilirubin [Mass/Vol] 0.3 mg/dL Normal 0.2-1.0 [facility] Comment on above: Performed By: #### C MP, LIPID, TSH, T7, BNP #### [facility] [address] [place] [address] Dr. Jc Norris Calcium [Mass/Vol] 9.0 mg/dL Normal 8.5-10.1 [place] Comment on above: Performed By: #### C MP, LIPID, TSH, T7, BNP #### [facility] [address] [place] [address] Dr. Jc Norris Chloride [Moles/Vol] 102 mmol/L Normal 98-107 [facility] Comment on above: Performed By: #### C MP, LIPID, TSH, T7, BNP #### [facility] [address] [place] [address] Dr. Jc Norris CO2 [Moles/Vol] 32.4 mmol/L Critically high 21.0-32.0 [facility] Comment on above: Performed By: #### C MP, LIPID, TSH, T7, BNP #### [facility] [address] [address] [address] Jc Norris Creatinine [Mass/Vol] 0.67 mg/dL Normal 0.55-1.02 [facility] Comment on above: Performed By: #### C MP, LIPID, TSH, T7, BNP #### [facility] [address] [place] [address] Dr. cJ Norris EGFR-AF JAMAICAN >60 Normal >=60 [facility] Comment on above: Performed By: #### C MP, LIPID, TSH, T7, BNP #### [facility] [address] [place] [address] Dr. Jc Norris EGFR-NON AF J[place]ICAN >60 Normal >=60 [facility] Comment on above: Performed By: #### C MP, LIPID, TSH, T7, BNP #### [facility] [address] [place] [address] Dr. Jc Norris Globulin (S) [Mass/Vol] 3.2 g/dL Normal [facility] Comment on above: Performed By: #### C MP, LIPID, TSH, T7, BNP #### [facility] [address] [place] [address] Dr. Jc Norris Glucose [Mass/Vol] 94 mg/dL Normal 74-106 [place] Comment on above: Performed By: #### C MP, LIPID, TSH, T7, BNP #### [facility] [address] [place] [address] Dr. Jc Norris Potassium [Moles/Vol] 3.7 mmol/L Normal 3.5-5.1 [facility] Comment on above: Performed By: #### C MP, LIPID, TSH, T7, BNP #### [facility] [address] [place] [address] Dr. Jc Norris Protein [Mass/Vol] 6.8 g/dL Normal 6.4-8.2 [facility] Comment on above: Performed By: #### C MP, LIPID, TSH, T7, BNP #### [facility] [address] [address] [address] Jc Norris Sodium [Moles/Vol] 140 mmol/L Normal 136-145 [place] Comment on above: Performed By: #### C MP, LIPID, TSH, T7, BNP #### [facility] [address] [address] [address] Jc Norris Urea nitrogen [Mass/Vol] 16.0 mg/dL Normal 7.0-18.0 [facility] Comment on above: Performed By: #### C MP, LIPID, TSH, T7, BNP #### [facility] [address] [address] [address] Jc Norris Urea nitrogen/Creatinine [Mass ratio] 23.9 mg/mg Normal [facility] Comment on above: Performed By: #### C MP, LIPID, TSH, T7, BNP #### [facility] [address] [address] [address] Jc Norris TSHon 10-30-2021 TSH 2.046 uIU/mL Normal 0.358-3.740 [facility] Comment on above: Performed By: #### C MP, LIPID, TSH, T7, BNP #### [facility] [address] [address] [address] Jc Norris Body fluid albumin measureme nt (mass/volume)Ordered By: Anjali Hendrix on 10-06-2021 Albumin (Body fld) [Mass/Vol] 3.9 g/dL 3.2-5.5 [facility] Cholesterol in LDL Calc [Mas s/Vol]Ordered By: Anjali Hendrix on 10-06-2021 Cholesterol in LDL [Mass/Vol] 106 mg/dL 0-100 [facility] Comment on above: LDL ATP III CLASSIFI CATION LDL less than 100 mg/dL Optimal LDL 100-129 mg/dL Near or above optimal LDL 130-159 mg/dL Borderline high LDL 160-189 mg/dL High LDL greater than 189 mg/dL Very high Cholesterol in VLDL Calc [Ma ss/Vol]Ordered By: Anjali Hendrix on 10-06-2021 Cholesterol in VLDL [Mass/Vol] 22 mg/dL [facility] Comprehensive Metabolic Empo n 10-06-2021 Albumin [Mass/Vol] 3.9 g/dL Normal 3.2-5.5 [facility] Comment on above: Performed By: #### E BS LIPID, EBS A1C, EBS CMP #### [facility] [address] ALT [Catalytic activity/Vol] 19 U/L Normal 10-60 [facility] Comment on above: Performed By: #### E BS LIPID, EBS A1C, EBS CMP #### [facility] [address] Estimated GFR ( Amira > 60 Normal [facility] Comment on above: Result Comment: GFR estimated reference range: According to KDOQI guidelines, <60 ml/min/1.73m2 is sufficient to diagnose a patient with chronic kidney disease. Performed By: #### E BS LIPID, EBS A1C, EBS CMP #### [facility] [address] Estimated GFR (Non- Am > 60 [facility] Comment on above: Performed By: #### E BS LIPID, EBS A1C, EBS CMP #### [facility] [address] Comprehensive Metabolic EmpO rdered By: Anjali Hendrix on 10-06-2021 Albumin/Globulin [Mass ratio] 1.4 {ratio} [facility] Comment on above: Performed By: #### E BS LIPID, EBS A1C, EBS CMP #### [facility] [address] [place] [address] [place] ALP [Catalytic activity/Vol] 76 U/L Normal 32-92 [facility] Comment on above: Performed By: #### E BS LIPID, EBS A1C, EBS CMP #### [facility] [facility] [address] [id number] [place] AST [Catalytic activity/Vol] 22 U/L Normal 10-42 [facility] Comment on above: Performed By: #### E BS LIPID, EBS A1C, EBS CMP #### [facility] [address] [place] [address] [place] Bilirubin [Mass/Vol] 0.4 mg/dL Normal 0.3-1.2 [facility] Comment on above: Performed By: #### E BS LIPID, EBS A1C, EBS CMP #### [facility] [address] Calcium [Mass/Vol] 9.4 mg/dL Normal 8.2-10.2 [facility] Comment on above: Performed By: #### E BS LIPID, EBS A1C, EBS CMP #### [facility] [address] Chloride [Moles/Vol] 101 mmol/L Normal 95-114 [facility] Comment on above: Performed By: #### E BS LIPID, EBS A1C, EBS CMP #### [address] CO2 [Moles/Vol] 23.4 mmol/L Normal 22.0-30.0 [facility] Comment on above: Performed By: #### E BS LIPID, EBS A1C, EBS CMP #### [address] Creatinine [Mass/Vol] 0.66 mg/dL Normal 0.44-1.03 [facility] Comment on above: Performed By: #### E BS LIPID, EBS A1C, EBS CMP #### [address] Globulin (S) [Mass/Vol] 2.7 g/dL Normal [facility] Comment on above: Performed By: #### E BS LIPID, EBS A1C, EBS CMP #### [facility] [address] [place] [address] Glucose [Mass/Vol] 109 mg/dL High 70-100 [facility] Comment on above: Result Comment: ADA recommended reference range Performed By: #### E BS LIPID, EBS A1C, EBS CMP #### [facility] [address] [place] [address] ADA recommended refe rence range Potassium [Moles/Vol] 3.9 mmol/L Normal 3.5-5.1 [facility] Comment on above: Performed By: #### E BS LIPID, EBS A1C, EBS CMP #### [facility] [address] Protein [Mass/Vol] 6.6 g/dL Normal 6.1-7.9 [facility] Comment on above: Performed By: #### E BS LIPID, EBS A1C, EBS CMP #### [facility] [address] Sodium [Moles/Vol] 135 mmol/L Low 136-146 [facility] Comment on above: Performed By: #### E BS LIPID, EBS A1C, EBS CMP #### [facility] [address] Urea nitrogen [Mass/Vol] 11 mg/dL Normal 11-10 [facility] Comment on above: Performed By: #### E BS LIPID, EBS A1C, EBS CMP #### [address] EBS A1C with Estimated Ave G luon 10-06-2021 Glucose [Mass/Vol] 114 mg/dL Normal [facility] Comment on above: Result Comment: PERF ORMED BY: [place] [address] PATHOLOGIST BANK ADVISOR MARLEY CANO M.D. Performed By: #### E BS LIPID, EBS A1C, EBS CMP #### [address] EBS A1C with Estimated Ave G luOrdered By: Anjali Hendrix on 10-06-2021 HbA1c (Bld) [Mass fraction] 5.6 % Normal 4.3-5.6 [facility] Comment on above: Result Comment: Incr eased risk for diabetes: 5.7 - 6.4 diabetes: >6.4 glycemic control for adults with diabetes: <7.0 Performed By: #### E BS LIPID, EBS A1C, EBS CMP #### [facility] [address] Increased risk for d iabetes: 5.7 - 6.4 diabetes: >6.4 glycemic control for adults with diabetes: <7.0 Estimated glomerular filtrat ion rate (GFR) non- AmericanOrdered By: Anjali Hendrix on 10-06-2021 GFR/1.73 sq M.predicted among non-blacks MDRD (S/P/Bld) [Vol rate/Area] > 60 mL/Min [facility] Glucose mean value [Mass/vol ume] in Blood Estimated from glycated hemoglobinOrdered By: Anjali Hendrix on 10-06-2021 Average glucose Estimated from glycated hemoglobin (Bld) [Mass/Vol] 114 mg/dL [facility] Lipid ProfileOrdered By: Jayshree Hendrix on 10-06-2021 Cholesterol [Mass/Vol] 179 mg/dL Normal 140-200 [facility] Comment on above: Result Comment: Chol less than 200 mg/dl low risk Chol 201-239 mg/dl borderline risk Chol 240 mg/dl and greater high risk Performed By: #### E BS LIPID, EBS A1C, EBS CMP #### [facility] [address] Chol less than 200 m g/dl low risk Chol 201-239 mg/dl borderline risk Chol 240 mg/dl and greater high risk Cholesterol in HDL [Mass/Vol] 50 mg/dL Normal 35-85 [facility] Comment on above: Result Comment: HDL CHOL ATP-III CLASSIFICATION Cardiovascular Risk HDL > or equal to 60 mg/dL LOW HDL < 40 mg/dL HIGH Performed By: #### E BS LIPID, EBS A1C, EBS CMP #### [facility] [address] HDL CHOL ATP-III CLA SSIFICATION Cardiovascular Risk HDL > or equal to 60 mg/dL LOW HDL < 40 mg/dL HIGH Cholesterol.total/Chol esterol in HDL [Mass ratio] 3.6 {ratio} Normal <5.0 [facility] Comment on above: Result Comment: PERF ORMED BY: [facility] [address] [place] [address] PATHOLOGIST BANK ADVISOR MARLEY CANO M.D. Performed By: #### E BS LIPID, EBS A1C, EBS CMP #### [facility] [address] Lipid Profileon 10-06-2021 LDL Cholesterol,Calculated 106 mg/dL High 0-100 [facility] Comment on above: Result Comment: LDL ATP III CLASSIFICATION LDL less than 100 mg/dL Optimal LDL 100-129 mg/dL Near or above optimal LDL 130-159 mg/dL Borderline high LDL 160-189 mg/dL High LDL greater than 189 mg/dL Very high Performed By: #### E BS LIPID, EBS A1C, EBS CMP #### [facility] [address] Triglyceride w/Reflex 113 mg/dL Normal 35-149 [facility] Comment on above: Result Comment: TRIG ATP III CLASSIFICATION TRIG less than 150 mg/dL Normal TRIG 150-199 mg/dL Borderline high TRIG 200-500 mg/dL High TRIG greater than 500 mg/dL Very high Standard traceable to the Center for Disease Conrtrol and Prevention (CDC) test method. Performed By: #### E BS LIPID, EBS A1C, EBS CMP #### [facility] [address] VLDL CHOLESTEROL 22 mg/dL Normal [facility] Comment on above: Performed By: #### E BS LIPID, EBS A1C, EBS CMP #### [facility] [address] No Panel InformationOrdered By: Anjali Hendrix on 10-06-2021 Estimated GFR () > 60 mL/Min [facility] Comment on above: GFR estimated refere nce range: According to KDOQI guidelines, <60 ml/min/1.73m2 is sufficient to diagnose a patient with chronic kidney disease. Pharmacy Creatinine Clearance (Chem N/A [facility] Triglycerides Reflex 113 mg/dL 35-149 [facility] Comment on above: TRIG ATP III [...] additional P-5'-P [Catalytic activity/Vol] 19 U/L 10-60 [facility] HCG,Urineon 04-25-2021 Beta HCG ( test) Ql (U) Negative Normal [facility] Comment on above: Result Comment: PERF ORMED BY: [place] [address] PATHOLOGIST BANK ADVISOR MARLEY CANO M.D. Performed By: #### U HCG #### [address] HCG,Urineon 03-16-2021 Beta HCG ( test) Ql (U) Negative Normal [facility] Comment on above: Result Comment: PERF ORMED BY: [place] [address] PATHOLOGIST BANK ADVISOR MARLEY CANO M.D. Performed By: #### U HCG #### [address] COVID-19 [facility] 02-21-2021 SARS-CoV-2 (COVID-19) RNA VANDANA+probe Ql (Unsp spec) Positive Critically abnormal Negative [facility] Comment on above: Order Comment: Healt hcare Worker?: N Result Comment: Posi tive results will only be called to Providers for the following groups of patients: Pre-Surgical Testing, Emergency Room, and Inpatients. Testing for SARS-CoV-2 by RT-PCR This test was developed and its performance characteristics determined by [employer] and validated at the [facility]. This test has not been FDA [...] is terminated or revoked sooner. PERFORMED BY: [facility] [address] [id number] PATHOLOGIST BANK ADVISOR MARLEY CANO M.D. Performed By: #### C OVID 19 [facility] #### [facility] [address] [id number] [facility] Vital Signs Date Time Vital Sign Value Performing Clinician Facility 08-26-2023 00:00-0400 Diastolic blood pressure 85 mm[Hg] Ced Dorys [facility] 08-26-2023 00:00-0400 Heart rate 76 /min Ced Dorys [facility] 08-26-2023 00:00-0400 Hourly Rounding Ced Dorys [facility] 08-26-2023 00:00-0400 Mean blood pressure 96 mm[Hg] Ced Dorys [facility] 08-26-2023 00:00-0400 SaO2% (BldA) [Mass fraction] 100 % Ced Dorys [facility] 08-26-2023 00:00-0400 Systolic blood pressure 119 mm[Hg] Ced Dorys [facility] 08-25-2023 23:30-0400 Blood Pressure Location Ced Dorys [facility] 08-25-2023 23:30-0400 Diastolic blood pressure 82 mm[Hg] Ced Dorys [facility] 08-25-2023 23:30-0400 Heart rate 77 /min Ced Dorys [facility] 08-25-2023 23:30-0400 Hourly Rounding Ced Dorys [facility] 08-25-2023 23:30-0400 Mean blood pressure 99 mm[Hg] Ced Dorys [facility] 08-25-2023 23:30-0400 SaO2% (BldA) [Mass fraction] 99 % Ced Dorys [facility] 08-25-2023 23:30-0400 Systolic blood pressure 132 mm[Hg] Ced Dorys [facility] 08-25-2023 22:30-0400 Diastolic blood pressure 96 mm[Hg] Ced Dorys [facility] 08-25-2023 22:30-0400 Heart rate 73 /min Ced Dorys [facility] 08-25-2023 22:30-0400 Hourly Rounding Ced Dorys [facility] 08-25-2023 22:30-0400 Mean blood pressure 107 mm[Hg] Ced Dorys [facility] 08-25-2023 22:30-0400 SaO2% (BldA) [Mass fraction] 99 % Ced Dorys [facility] 08-25-2023 22:30-0400 Systolic blood pressure 128 mm[Hg] Ced Dorys [facility] 08-25-2023 20:39-0400 Body temperature 98.42 [degF] Ced Dorys [facility] 08-25-2023 20:39-0400 Heart rate 103 /min Ced Dorys [facility] 08-25-2023 20:39-0400 Respiratory rate 18 /min Ced Dorys [facility] 2023 09:00-0400 Body height 170.18 cm Al Ball Other [facility] Other 10-23-2022 09:00-0400 Body mass index (BMI) [Ratio] 33.36 kg/m2 Al Ball Other [facility] Other 10-23-2022 09:00-0400 Body weight 96.62 kg Al Ball Other [facility] Other 10-23-2022 09:00-0400 Diastolic blood pressure 68 mm[Hg] Al Ball Other [facility] Other 10-23-2022 09:00-0400 Systolic blood pressure 105 mm[Hg] Al Ball Other [facility] Other 05-05-2021 11:45-0400 Body height 170.18 cm Eric Puckettley Other [facility] Other 05-05-2021 11:45-0400 Body mass index (BMI) [Ratio] 34.14 kg/m2 Eric Emily Other [facility] Other 05-05-2021 11:45-0400 Body weight 98.88 kg Eric Emily Other [facility] Other 02-01-2021 15:30-0500 Body height 170.18 cm Eric Emily Other [facility] Other 02-01-2021 15:30-0500 Body mass index (BMI) [Ratio] 31.48 kg/m2 Eric Emily Other [facility] Other 02-01-2021 15:30-0500 Body weight 91.17 kg Eric Emily Other [facility] Other Encounters Encounter Date Encounter Type Care Provider Facility Start: 09-04-2023 End: 09-04-2023 ambulatory Leah Casiano Facility:[facility] Katherine dominique Start: 09-04-2023 End: 09-04-2023 Patient encounter procedure Leah Casiano [facility] Start: 08-25-2023 End: 08-26-2023 Emergency department patient visit DO Ced WattsEric Dorys Facility:[facility] Start: 06-26-2023 End: 06-26-2023 ambulatory Ning PATEL Facility:[facility] Start: 06-20-2023 End: 06-20-2023 ambulatory HUSSEIN A BROWN Not Available Start: 06-20-2023 End: 06-20-2023 ambulatory HUSSEIN A BROWN Not Available Start: 06-06-2023 End: 06-06-2023 ambulatory HUSSEIN A BROWN Not Available Start: 06-06-2023 End: 06-06-2023 ambulatory HUSSEIN A BROWN Not Available Start: 04-29-2023 End: 04-29-2023 ambulatory HUSESIN A BROWN Not Available Start: 04-29-2023 End: 04-29-2023 ambulatory HUSSEIN A BROWN Not Available Start: 02-05-2023 End: 02-05-2023 ambulatory ALEX TERESO Not Available Start: 02-05-2023 End: 02-05-2023 ambulatory ALEX TERESO Not Available Start: 01-09-2023 End: 01-09-2023 ambulatory RADHA SWETHA Not Available Start: 01-09-2023 End: 01-09-2023 ambulatory RADHA SWETHA Not Available Start: 10-23-2022 End: 10-23-2022 ambulatory Al Snow Other [facility] Other Start: 10-23-2022 Office outpatient vi sit 10 minutes Al Snow [facility] Start: 10-18-2022 End: 10-19-2022 ambulatory MARY TRAN [facility] Start: 07-17-2022 End: 07-17-2022 ambulatory BERNARDO ROSAS [...] Departed Referred MD Lona Gomez Work Phone: [facility] [address] Start: 08-30-2021 End: 08-31-[address] LONA GOMEZ . Facility:[facility] Start: 05-05-2021 End: 05-05-2021 ambulatory Eric Diaz Other [facility] Other Start: 05-05-2021 Postop follow up vis it related to original px Eric Diaz [facility] Start: 03-27-2021 End: 03-27-2021 ambulatory Eric Diaz Other [facility] Other Start: 03-27-2021 Encounter for other preprocedural examination Eric Diaz [facility] Start: 03-27-2021 Postop follow up vis it related to original px Eric Diaz [facility] Start: 02-08-2021 End: 02-08-2021 ambulatory Eric Diaz Other [facility] Other Start: 02-08-2021 Telephone encounter Eric DOMINGUEZ [facility] Start: 02-06-2021 End: 02-06-2021 ambulatory Eric Diaz Other [facility] Other Start: 02-06-2021 Telephone encounter Eric DOMINGUEZ [facility] Start: 02-01-2021 End: 02-01-2021 ambulatory Eric Diaz Other [facility] Other Start: 02-01-2021 Encounter for other preprocedural examination Eric Diaz [facility] Start: 02-01-2021 Office outpatient ne w 45 minutes Eric Diaz [facility] Procedures Date Procedure Procedure Detail Performing Clinician Cholecystectomy Ced wilhelm H/O: tubal ligation Ced flores Tonsil and adenoid s tructure (body structure) Ced Saul Immunizations Immunization Date Immunization Notes Care Provider [facility] 01-17-2021 COVID-19 Wei Fernandez (Pfizer) MD Lona Gomez Work Phone: [facility] 12-18-2020 COVID-Wei Song (Pfizer) MD Lona Gomez Work Phone: [facility] Payers Date Payer Category Payer Unknown [id number] 2.16.84 0.1.508141.3.579.2.593 1993 Unknown [id number] 2.16.84 0.1.611877.3.579.2.593 1993 Unknown [id number] 2.16.84 0.1.864776.3.579.2.593 1993 Unknown [id number] 2.16.84 0.1.255247.3.579.2.593 1993 Unknown [id number] 2.16.84 0.1.933987.3.579.2.593 1993 Unknown [id number] 2.16.84 0.1.695928.3.579.2.593 1993 Unknown [id number] 2.16.84 0.1.068528.3.579.2.593 1993 Unknown [id number] 2.16.84 0.1.588840.3.579.2.593 1993 Unknown [id number] 2.16.84 0.1.016356.3.579.2.593 1993 Unknown [id number] 2.16.84 0.1.114850.3.579.2.593 1993 Unknown [id number] 2.16.84 0.1.567183.3.579.2.593 1993 Unknown [id number] 2.16.84 0.1.801122.3.579.2.593 1993 Unknown [id number] 2.16.84 0.1.033080.3.579.2.593 1993 Unknown [id number] 2.16.84 0.1.541579.3.579.2.593 1993 Unknown [id number] 2.16.84 0.1.774439.3.579.2.593 1993 Unknown [id number] 2.16.84 0.1.523787.3.579.2.593 1993 Unknown [id number] 2.16.84 0.1.999179.3.579.2.593 1993 Unknown [id number] 2.16. 840.1.401474.3.579.2.175 1993 Unknown [id number] 2.16.84 0.1.011632.3.579.2.1259 1993 Unknown [id number] 2.16.84 0.1.852268.3.579.2.1259 1993 Unknown [id number] 2.16.84 0.1.648799.3.579.2.1259 1993 Unknown [id number] 2.16.840 .1.126672.3.579.2.1259 1993 Unknown [id number] 2.16.840 .1.567524.3.579.2.1259 1993 Unknown [id number] 2.16.8 40.1.714716.3.579.2.727 1993 Unknown [id number] 2.16.8 40.1.677893.3.579.2.727 1993 Unknown [id number] 2.16.8 40.1.215812.3.579.2.727 1959 Unknown [id number] 2. 16.840.1.401249.19 1959 Unknown [id number] 2.16. 840.1.132396. 1959 Unknown [id number] 1959 Unknown [id number] Self-pay Self Pay [id number] Unknown [id number] 2.16.840 .1.301143.19 Social History Date Type Detail Facility Sex Assigned At [facility] Start: 04[facility]25-2021 [facility] Start: 1995 Sex Assigned At Female F [facility] Tobacco smoking status No Smokin g Status Entered [facility] Functional Status Date Assessment Result Facility 08-25-2023 Functional Status N/A [facility] Clinical Notes 02-01-2021 to 08-26-2023 Note Date [...] help with your condition: Managing pain Take mnnl-cna-esebkoj and prescription medicines only as told by [...] provider. Document Revised: 07/05/2021 Document Reviewed: 07/05/2021 [employer] Patient Education 2022 [employer]. Follow Up Care 08/25/2023 20:37:11 With:Lona Gomez Address: [address] [place], [place] [address] Business (1) When:Within 3 Day(s) [facility] 08-26-2023 Note ED Patient Education Note Neurology [...] with your condition: Managing pain ? Take ofwe-vho-dongnss and prescription medicines only as told by [...] provider. Document Revised: 07/05/2021 Document Reviewed: 07/05/2021 [employer] Patient Education ? 2022 [employer]. [facility] 08-25-2023 Evaluation + Plan note Extrac [...] with Cult Rflx XR Chest Single View [facility]2023 Evaluation note* Encounter Date Diagnosis Assessment Notes [...] avoid eating prior to HS. Continue PPI [facility] Other 05-30-2023 NotePROCEDURE: US PREG <14 WKS, [...] Electronically authenticated by: IKE COMBS Date: 2022-07-17 17:34[facility]03-18-2022 Evaluation note* Encounter Date Diagnosis Assessment [...] on range of motion and strength exercise. 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 I have advised against the fci use of narcotic pain medication. I have [...] outcome. Mar, Pre-op examination (ICD-10 - Z01.818) [facility] Other 12-15-2021 Evaluation note* Encounter Date Diagnosis [...] of pinch strength in approximately 6 weeks, area supervisor strength recovery at about 12 weeks, and [...] as documented in the electronic medical record. [facility] Other Evaluation noteNo InformationNort [employer] Other Evaluation noteNo assessment information available [facility] Work Phone: [facility] general Narrative - Reported* Type Description Date Medical History migraine headache Medical History hyperthyroidism Medical History back muscle spasms Surgical History gall bladder Surgical History tonsillectomy and adenoidectomy Surgical History ear tubes Hospitalization History childbirth [facility] Other Hisuyno general Narrative - Reported* Type Description Date Medical History GERD Medical History BOB Surgical History T/A Surgical History CTS Surgical History Cholecystectomy [facility] Other Hospital course Narrative No data available for this section [facility] No data available for this section [facility] No data available for this section [facility] Summary Purpose Family History No Family History [...] FOR VISIT (unrecogniz ed section and content) 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[employer]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 PhysicalRecheck B ilateral Hands1 WEEK POST OPCONSULT DR NATALIE NARANJO CTS [facility] CALI INFORMATION SOURCE (unrecogn ized section and content) DATE CREATED AUTHOR 10/12/2021 [facility] DATE CREATED AUTHOR AUTHOR'S ORGANIZ ATION 07/27/2022 [facility] DATE CREATED AUTHOR AUTHOR'S ORGANIZ ATION 12/27/2022 [facility] DATE CREATED AUTHOR AUTHOR'S ORGANIZ ATION 06/21/2023 [facility] DATE CREATED AUTHOR AUTHOR'S ORGANIZ ATION 08/25/2023 [facility] DATE CREATED AUTHOR AUTHOR'S ORGANIZ ATION 09/07/2023 [facility] DATE CREATED AUTHOR AUTHOR'S ORGANIZ ATION 09/20/2023 [facility] Care Teams (unrecognized sec [...] BE BASED ON THE PRIMARY CLINICAL RECORDS. [facility] [employer] [facility]. provides no warranty or guarantee of the accuracy or completeness of information in this document.
== END 2023-11-08 09:01 | disposition home or self-care (01) ==
LOC: CARD 09:01
PROVIDERS: PCP Family Medicine; Visit Provider Family Medicine
DX: R06.02 Shortness of breath (principal)

== ENCOUNTER 2023-11-26 12:18 | Outpatient (OUT) | payer OTHER, SELFPAY ==
[2023-11-26 13:22] LABS: Free T3 2.29 pg/mL (2.18-3.98)
== END 2023-11-26 12:19 | disposition home or self-care (01) ==
LOC: LAB 12:19
PROVIDERS: PCP Family Medicine; Visit Provider Family Medicine
DX: N76.0 Acute vaginitis (principal)
CPT/HCPCS: 36415; 84436; 84443; 84481

== ENCOUNTER 2024-06-15 06:33 | Outpatient (OUT) | payer OTHER, SELFPAY ==
[2024-06-15 06:44] LABS: Basophils Percent Auto 0.3 % (0.2-2.0); Eosinophils Absolute Auto 0.3 10^3/uL (0.0-0.7); Eosinophils Percent Auto 2.5 % (0.9-7.0); Hematocrit 40.5 % (36.0-48.0); Hemoglobin 13.5 g/dL (12.0-16.0); Immature Granulocytes Abs Auto 0.05 10^3/uL (0.00-0.03); Immature Granulocytes Pct Auto 0.4 % (0.0-0.5); Lymphocytes Absolute Auto 3.2 10^3/uL (1.2-3.8); Lymphocytes Percent Auto 28.3 % (20.5-60.0); Mean Corpuscular HGB Conc 33.3 g/dL (29.9-35.2); Mean Corpuscular Hemoglobin 28.2 pg (26.7-34.0); Mean Corpuscular Volume 84.6 fL (81.0-99.0); Mean Platelet Volume 10.7 fL (9.5-13.5); Monocytes Absolute Auto 0.9 10^3/uL (0.3-0.8); Monocytes Percent Auto 7.6 % (1.7-12.0); Neutrophils Absolute Auto 6.8 10^3/uL (1.4-6.5); Neutrophils Percent Auto 60.9 % (43.0-75.0); Platelet Count 220 10^3/uL (150-450); Red Blood Count 4.79 10^6/uL (4.20-5.40); Red Cell Distribution Width 12.5 % (11.0-15.0); White Blood Count 11.2 10^3/uL (4.0-11.0)
[2024-06-15 08:04] LABS: Alanine Aminotransferase 15 U/L (14-59); Albumin Globulin Ratio 1.1; Albumin Level 3.7 g/dL (3.4-5.0); Alkaline Phosphatase 110 U/L (46-116); Aspartate Amino Transferase 15 U/L (15-37); BUN Creatinine Ratio 13.7; Bilirubin Total 0.4 mg/dL (0.2-1.0); Calcium 9.1 mg/dL (8.5-10.1); Carbon Dioxide 27.4 mmol/L (21.0-32.0); Chloride 101 mmol/L (98-107); Chol HDL Ratio 4.5; Cholesterol 199 mg/dL (<=200); Estimated GFR (African America >60 (>=60 mL/min/1.73m^2); Estimated GFR (Non-African Ame >60 (>=60 mL/min/1.73m^2); Globulin 3.4 g/dL; Glucose 99 mg/dL (74-106); HDL Cholesterol 44 mg/dL (40-60); LDL Cholesterol Calculated 125.8 mg/dL; Potassium 3.4 mmol/L (3.5-5.1); Sodium 138 mmol/L (136-145); Thyroid Stimulating Hormone 4.511 uIU/mL (0.358-3.740); Total Protein 7.1 g/dL (6.4-8.2); Triglycerides 146 mg/dL (<=150); VLDL CHOLESTEROL 29.2 mg/dL
[2024-06-15 08:39] LABS: Estimated Average Glucose 114 mg/dL; Glycohemoglobin A1C 5.6 % (4.5-6.2)
[2024-06-16 02:13] LABS: Insulin 14.4 uIU/mL (2.6-24.9)
== END 2024-06-15 06:34 | disposition home or self-care (01) ==
LOC: LAB 06:34
PROVIDERS: PCP Family Medicine; Visit Provider Family Medicine
DX: Z00.00 Encounter for general adult medical examination without abnormal findings (principal)
CPT/HCPCS: 36415; 80053; 80061; 83036; 83525; 84436; 84443; 84481; 85025

== ENCOUNTER 2024-11-01 20:01 | Emergency (ER) | payer OTHER, SELFPAY ==
--- OUTSIDE RECORDS SUMMARY | 2024-11-01 20:10 | XMS_ITS | CCD ---
Author Organization [facility] CliniSywa Care Team Providers Care Director 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 Name Role Phone Eric Santana Unavailable MD Lona Estrada Primary Care Provider [phone] JANET Hendrix Attending Provider NATALIE Reyes, DR ZAMORANO Consulting Unavailable HOY ., DR ZAMORANO Attending Unavailable HOY ., DR ZAMORANO Admitting Unavailable HOY ., DR ZAMORANO Primary Care Unavailable ENDER, DR NILDA Rodriguez Consulting Unavailable MISC, DR ALEXIS Attending Unavailable MISC, DR ALEXIS Admitting Unavailable HOY ., DR ZAMORANO Primary Care Unavailable FROSTBURG, DR NILDA Rodriguez Consulting Unavailable MISC, DR [...] HOY ., DR ZAMORANO Primary Care Unavailable FROSTBURG, DR NILDA Rodriguez Consulting Unavailable PAY ., DR WYNNE Attending Unavailable PAY ., DR WYNNE Admitting Unavailable PAY ., DR WYNNE Consulting Unavailable GRENAN ., ESSENCE GUARDADO Consulting UnavailBERNARDO Eldridge Admitting Unavailable HOY ., DR ZAMORANO Primary Care Unavailable GRECHNY ., ESSENCE GUARDADO Consulting UnavailBERNARDO Eldridge Attending Unavailable IKE COMBS Consulting Unavailable Al Snow Unavailable MARY TRAN Primary Care Unavailable GHAZAL MIJARES Referring Unavailable HUSSEIN CHARLES Attending Unavailable RADHA POSADA Attending Unavailable ALEX RIDER Attending Unavailable HUSSEIN CHARLES Attending Unavailable HUSSEIN CHARLES Attending Unavailable DO Ced Saul Attending Unavailable Ning PATEL Attending Unavailable Lona Estrada Primary Care Physician Leah Casiano Attending Unavailable Leah Casiano Attending Unavailable Ced Saul SEric Attending Unavailable LONA ESTRADA Primary Care Unavailable Samuel Shaffer Attending Unavailable Samuel Shaffer Admitting Unavailable Lona Estrada MD Unavailable MD Lona Estrada Primary Care Provider DO Eric Santana Attending Provider [phone] Lona Estrada MD Primary Care Provider [phone] Lona Estrada MD Primary Care Provider HUSSEIN HEBERT Attending Unavailable CARLA TRIPLETT Attending Unavailable ERIC SANTANA Referring Unavailable Lona Estrada MD Primary Care Provider Eric Santana DO Attending Provider Eric Santana Admitting Unavailable Lona Estrada Primary Care Unavailable Eric Santana Attending Unavailable Lona Estrada Primary Care Unavailable Eric Santana Attending Unavailable Eric Santana Admitting Unavailable Lona Estrada Primary Care Unavailable Eric Santana Attending Unavailable Eric Santana Admitting Unavailable Allergies Allergy Classification Reported Allergen(s) Allergy Type Date of Onset Reaction(s) Facility (2 sources) Latex Drug allergy (disorder) 02-24-2016 [facility] Repository (4 sources) Latex Allergy to substance 12-13-2014 [facility] Work Phone: Medications Current Medications Medication Drug Class(es) Dates Sig (Normalized) Sig (Original) [id number] 200 actuat albuterol 0.09 mg/actuat metered dose inhaler (9 sources) beta2-Adrenergic Agonist Start: 12-11-2023 Start: 04-16-2023 take 2 puff(s) by in halation every four hours albuterol HFA 90 mcg/act inhaler Inhale 2 puffs every 4 (four) hours if needed 04/16/2023 Active amitriptyline hydrochloride 25 mg oral tablet (4 sources) Tricyclic Antidepressant End: 08-11-2024 take 1 tablet by mouth at bedtime amitriptyline (Elavil) 25 MG tablet Take 25 mg by mouth at bedtime 1/2 tablet at bedtime for 2 weeks then 1 tablet at bedtime thereafter 08/11/2024 Discontinued (Therapy completed) 24 hr buPROPion hydrochloride 150 mg extended release oral tablet (5 sources) Aminoketone Start: 12-11-2023 take 1 tablet by mouth every twenty-four hours Start: 12-11-2023 Bupropion Hcl Active 150 MG PO December 11, 2023 12:00am citalopram 10 mg oral tablet (9 sources) Serotonin Reuptake Inhibitor Start: 04-16-2023 End: 08-11-2024 take 1 tablet by mouth once daily citalopram (CeleXA) 20 MG tablet TAKE 1 TABLET BY MOUTH ONCE A DAY WITH 10 MG TABLET 04/16/2023 08/11/2024 Discontinued (Therapy completed) Start: 04-16-2023 End: 08-11-2024 take 1 tablet by mouth once daily citalopram (CeleXA) 10 MG tablet 1 TABLET ORALLY ONCE A DAY WITH 20MG TABLET 30 DAYS 04/16/2023 08/11/2024 Discontinued (Therapy completed) take 1 tablet by hussein th every twenty-four hours CeleXA 20 MG 1 tablet Orally Once a day Active Wlcvpszgtru-Jinczsoac-Dojfjr er (5 sources) Start: 12-11-2023 Start: 12-11-2023 Fluticasone-Um eclidin-Vilanter (Trelegy Ellipta) 200-62.5-25 mcg blister with device Active INHALATION December 11, 2023 12:00am levothyroxine sodium 0.075 m g oral tablet (20 sources) l-Thyroxine Start: 12-11-2023 Start: 04-25-2021 End: 12-11-2023 take 1 tablet by mouth once daily Levothyroxine (Euthyrox) 50 mcg tablet Discontinued 50 MCG PO Daily April 25, 2021 1:00am December 11, 2023 9:09am take 1 tablet by hussein th once daily in the morning Levothyroxine Sodium 25 MCG 1 tablet in the morning on an empty stomach Orally Once a day Active meloxicam 15 mg oral tablet (6 sources) Nonsteroidal Anti-inflammatory Drug Start: 08-11-2024 End: 08-11-2025 take 1 tablet by mouth once daily methylPREDNISolone 4 mg oral tablet (8 sources) Corticosteroid Start: 08-31-2024 take 1 tablet by mouth once End: 08-11-2024 take 1 tablet by mouth once daily methylPREDNISolone (Medrol) 4 MG tablet Take 4 mg by mouth Daily 08/11/2024 Discontinued (Therapy completed) 10 actuat olodaterol 0.0025 mg/actuat / tiotropium 0.0025 mg/actuat inhalation spray (4 sources) Anticholinergic, beta2-Adrenergic Agonist Start: 04-16-2023 Stiolto Respima t 2.5-2.5 MCG/ACT aerosol solution inhaler 04/16/2023 Active Start: 04-16-2023 Stiolto Respim at 2.5-2.5 MCG/ACT aerosol solution inhaler INHALE 2 PUFFS BY MOUTH ONCE A DAY 04/16/2023 Active omeprazole 40 mg delayed release oral capsule (1 source) Proton Pump Inhibitor take 1 capsule by mouth once daily Omeprazole 40 MG 1 capsule 30 minutes before morning meal Orally Once a day Active ondansetron 4 mg disintegrating oral tablet (5 sources) Serotonin-3 Receptor Antagonist Start: 4 ubrogepant 100 mg oral tablet (9 sources) Start: 4 Ubrogepant (Ubre lvy) 50 MG tablet Take 50 mg by mouth 1 at onset of migraine and may repeat in 2 hours no more than 2 times a day and 2 times a week Active Completed/Discontinued Medications Medication Drug Class(es) Dates Sig (Normalized) Sig (Original) cyproheptadine hydrochloride 4 mg oral tablet (11 sources) Start: 04-25-2021 End: 12-11-2023 take 1 tablet by mouth twice daily Cyproheptadine 4 mg tablet Discontinued 4 MG PO Twice daily April 25, 2021 1:00am December 11, 2023 9:09am doxycycline monohydrate 100 mg oral capsule (10 sources) Tetracycline-cl ass Drug Start: 04-25-2021 End: 12-11-2023 take 1 capsule by mouth twice daily Doxycycline Monohydrate 100 mg capsule Discontinued 100 MG PO Twice daily April 25, 2021 1:00am December 11, 2023 9:09am Doxycycline Acti ve DULoxetine 60 mg delayed release oral capsule (11 sources) Serotonin and Norepinephrine Reuptake Inhibitor Start: 04-25-2021 End: 12-11-2023 take 1 capsule by mouth twice daily Duloxetine 60 mg capsule,delayed release(DR/EC) Discontinued 60 MG PO Twice daily April 25, 2021 1:00am December 11, 2023 9:09am take [address] [facility] every twenty-four hours Cymbalta 60 MG 1 capsule Orally Once a day Active rizatriptan 10 mg oral tablet (11 sources) Serotonin-1b and Serotonin-1d Receptor Agonist Start: 04-25-2021 End: 12-11-2023 take 1 tablet by mouth once daily Rizatriptan 10 mg tablet Discontinued 10 MG PO Daily April 25, 2021 1:00am December 11, 2023 9:09am tiZANidine 4 mg oral tablet (19 sources) Central alpha-2 Adrenergic Agonist Start: 04-25-2021 End: 12-11-2023 take 1 tablet by mouth once daily at bedtime Tizanidine 4 mg tablet Discontinued 4 MG PO Daily at bedtime April 25, 2021 1:00am December 11, 2023 9:08am End: 08-11-2024 take 1 tablet by mouth every six hours as needed tiZANidine (Zanaflex) 4 MG tablet Take 4 mg by mouth every 6 (six) hours if needed for muscle spasms 08/11/2024 Discontinued (Therapy completed) take 1 tablet by hussein th every eight hours tiZANidine HCl 4 MG 1 tablet as needed Orally Three times a day Active topiramate 100 mg oral tablet (11 sources) Start: 04-25-2021 End: 12-11-2023 take 1 tablet by mouth once daily Topiramate 100 mg tablet Discontinued 100 MG PO Daily April 25, 2021 1:00am December 11, 2023 9:08am traMADol hydrochloride 50 mg oral tablet (12 sources) Opioid Agonist Start: 03-16-2021 End: 12-11-2023 take 1 tablet by mouth every four hours as needed for pain Tramadol 50 mg tablet Discontinued 50 MG PO Q4H as needed for pain 20 April 25, 2021 1:00am December 11, 2023 9:08am Problems Active Problems Problem Classification Problem Date Documented Date Episodic/Chronic Abdominal pain (4 sources) Unspecified abdominal pain; Translations: [UNSPECIFIED ABDOMINAL PAIN] Onset: 06-13-2022 Episodic Administrative/social admission (1 source) Encounter for pre-employment examination Episodic Anxiety disorders (2 sources) Generalized anxiety disorder; Translations: [Generalized anxiety disorder] Chronic Asthma (1 source) Asthma; Translations: [Unspecified asthma, uncomplicated] 11-21-2023 Chronic Congestive heart failure; nonhypertensive (1 source) [...] disease without esophagitis] Chronic Headache; including migraine (8 sources) Migraine without aura, not refractory ; Translations: [Chronic migraine without aura, not intractable, without status migrainosus] Onset: 09-01-2023 09-01-2023 Chronic Headache; including migraine (1 source) Headache; [...] REPLACEMENT THERAPY] Onset: 06-14-2022 Episodic Menstrual disorders (12 sources) Irregular menstruation, unspecified; Translations: [Dysmenorrhea, unspecified] Onset: 11-04-2021 Chronic Other aftercare (1 source) Other nursing home (current) drug therapy; Translations: [OTH INTERMEDIATE CURRENT DRUG THERAPY] Onset: 06-14-2022 Episodic Other [...] pregnancies, second trimester] Onset: 10-18-2022 Episodic Other connective tissue disease (1 source) Hand pain; Translations: [Pain in right hand] 12-11-2023 Episodic Other connective tissue disease (4 sources) Pain of bilateral hands; Translations: [Pain in right hand] 12-11-2023 Episodic Other ear and sense organ disorders (2 sources) Sensorineural hearing loss in left ear; Translations: [Unspecified sensorineural hearing loss] 08-11-2024 Chronic Other ear and sense organ disorders (2 sources) Otalgia, left ear; Translations: [Otalgia, unspecified] 08-11-2024 Episodic Other nervous system disorders (15 sources) Carpal tunnel syndrome of right wrist; Translations: [Carpal tunnel syndrome, right upper limb] 12-10-2023 Chronic Other nervous system disorders (15 sources) Carpal tunnel syndrome of left wrist; Translations: [Carpal tunnel syndrome, left upper limb] 12-10-2023 Chronic Other nervous system disorders (11 sources) Carpal tunnel syndrome; Translations: [Carpal tunnel syndrome, unspecified upper limb] 03-16-2021 Chronic Comment on above: Problem List clean-u p per request of Phys. EHR Cmte Other nervous system disorders (4 sources) Carpal tunnel syndrome, left upper limb; Translations: [Carpal tunnel syndrome] Onset: 02-01-2021 Resolved: 05-05-2021 Chronic Other nervous system disorders (4 sources) Carpal tunnel syndrome, right upper limb; Translations: [Carpal tunnel syndrome] Onset: 02-01-2021 Resolved: 05-05-2021 Chronic Other nervous system disorders (5 sources) Bilateral carpal tunnel syndrome; Translations: [Carpal tunnel syndrome, bilateral upper limbs] Onset: 09-01-2023 12-12-2023 Chronic Other and delivery including normal (5 sources) Encounter for supervision of other normal , first trimester; Translations: [Encounter for supervision of normal , unspecified, first trimester] Onset: 06-30-2022 Episodic Other skin disorders (9 sources) Mass of wrist; Translations: [Localized swelling, mass and lump, left upper limb] 08-31-2024 Episodic Other skin disorders (1 source) Localized swelling, mass and lump, left upper limb; Translations: [Localized swelling, mass and lump, left upper limb] Onset: 09-17-2024 Episodic Otitis media and related conditions (2 sources) Dysfunction of bilateral eustachian tubes; Translations: [Unspecified Eustachian tube disorder, bilateral] 08-11-2024 Episodic Ovarian cyst (1 source) Other ovarian cyst, right side; Translations: [OTHER OVARIAN CYST RIGHT SIDE] Onset: 05-11-2022 Episodic Residual codes; unclassified (4 sources) Obstructive sleep apnea (adult) (pediatric); Translations: [OBSTRUCTIVE SLEEP APNEA] Onset: 08-30-2021 Chronic Residual codes; unclassified (4 sources) Obstructive sleep apnea syndrome; Translations: [Obstructive sleep apnea (adult) (pediatric)] Onset: 09-01-2023 09-01-2023 Chronic Residual codes; unclassified (3 sources) Other specified postprocedural states; Translations: [Other postprocedural status] Onset: 03-27-2021 Resolved: 05-05-2021 Episodic Residual codes; unclassified (1 source) 12 weeks gestation of ; Translations: [12 WEEKS GESTATION OF ] Onset: 07-18-2022 Episodic Residual codes; unclassified (1 source) 8 weeks gestation of ; Translations: [8 WEEKS GESTATION OF ] Onset: 06-14-2022 Episodic Residual codes; unclassified (5 sources) Postprocedural state finding; Translations: [Other specified postprocedural states] 08-31-2024 Episodic Screening and history of mental health and substance abuse codes (1 source) Personal history of nicotine dependence; Translations: [PERSONAL HISTORY OF NICOTINE DEPEND] Onset: 07-18-2022 Episodic Urinary tract infections (2 sources) Urinary tract infection, site not specified; Translations: [UTI SITE NOT SPECIFIED] Onset: 04-09-2022 Episodic Past or Other Problems Problem Classification Problem Date Documented Da te Episodic/Chronic Deficiency and other anemia (1 source) Anemia, unspecified; Translations: [ANEMIA UNSPECIFIED] Onset: 11-28-2021 Episodic Diabetes mellitus without complication (1 source) Other abnormal glucose; Translations: [OTHER ABNORMAL GLUCOSE] Onset: 11-28-2021 Episodic Genitourinary symptoms and ill-defined conditions (3 sources) Urgency of urination; Translations: [URGENCY OF URINATION] Onset: 04-05-2022 Episodic Inflammatory diseases of female pelvic organs (3 sources) Bacterial vaginosis; Translations: [Acute vaginitis] Onset: 03-10-2015 08-07-2024 Episodic Malaise and fatigue (4 sources) Other fatigue; Translations: [OTHER FATIGUE] Onset: 10-30-2021 Episodic Nonspecific chest pain (1 source) Other chest pain; Translations: [OTHER CHEST PAIN] Onset: 12-27-2021 Episodic Other complications of (3 sources) Herpes in ; Translations: [Other viral diseases complicating , unspecified trimester] Onset: 01-31-2015 08-07-2024 Episodic Other connective tissue disease (1 source) Pain in right hand; Translations: [Pain in right hand] Onset: 12-11-2023 Episodic Other connective tissue disease (1 source) Pain in left hand; Translations: [Pain in left hand] Onset: 12-11-2023 Episodic Other injuries and conditions due to [...] [PARESTHESIA OF SKIN] Onset: 02-15-2022 Episodic Other nervous system disorders (4 sources) Paresthesia; Translations: [Paresthesia of skin] Onset: 09-01-2023 09-01-2023 Episodic Other nutritional; endocrine; and metabolic disorders (1 source) Abnormal weight gain; Translations: [ABNORMAL WEIGHT GAIN] Onset: 11-04-2021 Episodic Spondylosis; intervertebral disc disorders; other back problems (8 sources) Lumbago with sciatica, left side; Translations: [Lumbago with sciatica] Onset: 03-06-2022 Episodic Results Test Name Value Interpretation Reference Range Facility MR wrist LT wo conon 025 MR wrist LT wo con [facility] Main [place] [id number] MRI Report Signed Patient: Mariangel Montgomery MR#: [id number] 64 : 1995 Acct:[id number] Age/Sex: 29 / F ADM Date: 09/17/24 Loc: [facility] Room: Type: [facility] Attending Dr: Eric Santana DO Copies to: Eric Santana DO Ordering Provider: Eric Santana DO Date of Service: 09/17/24 MR/MR wrist LT wo con: R22.32 - Localized swelling, mass and lump, left upper limb MR wrist LT wo con 09/17/2024 8:16 AM SIGNS AND SYMPTOMS: Localized swelling, mass and lump, left upper limb PROTOCOL: Multiplanar multisequence MR images of the left wrist without contrast COMPARISON: 08/31/2024 FINDINGS: Alignment: Normal Fluid: Carpus effusion: No significant joint effusion. There is a ganglion cyst projecting anteriorly from the radiocarpal joint and the flexor retinaculum along the distal aspect of the distal radius. This measures 1.4 x 0.8 x 1.1 cm in greatest dimension.. Distal radioulnar joint effusion: None. Intrinsic ligaments: Scapholunate: Intact. Lunotriquetral: Intact. Ulnar side: Triangular fibrocartilage: Intact. Lunate facet: Intact Hamate-lunate: Intact. Extensor compartment: I: Intact. II: Intact. III: Intact. IV: Intact. V: Intact. : Intact. Flexor compartment: Carpal tunnel: Median nerve: Normal. Flexor retinaculum: Intact. Flexor tendons: Intact. Guyon canal: Normal. Articular: Thumb carpometacarpal joint: Intact. Scaphotrapeziotrapezo idal joint: Intact. Pisiform-triquetral joint: Intact. Bones (other than subarticular marrow): Normal. Muscles: Normal. Vessels: Normal. MR/MR wrist LT wo con IMPRESSION: There is a ganglion cyst projecting anteriorly from the radiocarpal joint and the flexor retinaculum along the distal aspect of the distal radius. This measures 1.4 x 0.8 x 1.1 cm in greatest dimension. Impression dictated by: Keri Randall M.D. 09/17/2024 11:21 AM Dictation Location: [place] [address] Transcribed By: GWEN 09/17/24 1121 Dictated By: Keri Randall II, MD 09/17/24 1112 Signed By: 09/17/24 1121 Normal [facility] Magnetic resonance imaging r eportOrdered By: Keri Randall on 09-17-2024 Study report [facility] Main [address] [address] MRI Report Signed Patient: Mariangel Montgomery MR#: [id number] : 1995 Acct:[id number] Age/Sex: 29 / F ADM Date: 5 [facility] Room: Type: [facility] CLI Attending Dr: Eric Santana DO Copies to: Eric Santana DO~ Ordering Provider: Eric Santana DO Date of Service: 09/17/24 MR/MR wrist LT wo con: R22.32 - Localized swelling, mass and lump, left upper limb MR wrist LT wo con 09/17/2024 8:16 AM SIGNS AND SYMPTOMS: Localized swelling, mass and lump, left upper limb PROTOCOL: Multiplanar multisequence MR images of the left wrist without contrast COMPARISON: 08/31/2024 FINDINGS: Alignment: Normal Fluid: Carpus effusion: No significant joint effusion. There is a ganglion cyst projecting anteriorly from the radiocarpal joint and the flexor retinaculum along the distal aspect of the distal radius. This measures 1.4 x 0.8 x 1.1 cm in greatest dimension.. Distal radioulnar joint effusion: None. Intrinsic ligaments: Scapholunate: Intact. Lunotriquetral: Intact. Ulnar side: Triangular fibrocartilage: Intact. Lunate facet: Intact Hamate-lunate: Intact. Extensor compartment: I: Intact. II: Intact. III: Intact. IV: Intact. V: Intact. : Intact. Flexor compartment: Carpal tunnel: Median nerve: Normal. Flexor retinaculum: Intact. Flexor tendons: Intact. Guyon canal: Normal. Articular: Thumb carpometacarpal joint: Intact. Scaphotrapeziotrapezo idal joint: Intact. Pisiform-triquetral joint: Intact. Bones (other than subarticular marrow): Normal. Muscles: Normal. Vessels: Normal. MR/MR wrist LT wo con IMPRESSION: There is a ganglion cyst projecting anteriorly from the radiocarpal joint and the flexor retinaculum along the distal aspect of the distal radius. This measures 1.4 x 0.8 x 1.1 cm in greatest dimension. Impression dictated by: Keri Randall M.D. 09/17/2024 11:21 AM Dictation Location: RADIO-PC-23 Transcribed By: [facility] 09/17/24 1121 Dictated By: Keri Randall II, MD 09/17/24 1112 Signed By: 09/17/24 1121 [facility] Work Phone: X-ray reportOrdered By: Jerome Lawler on 08-31-2024 Study report [facility] [address] [place] [id number] XRay Report Signed Patient: Mariangel Montgomery MR#: [id number] : 1995 Acct:[id number] Age/Sex: 28 / F ADM Date: 5 Loc: [facility] Room: Type: [facility] Attending Dr: Eric Santana DO Copies to: Eric Santana DO~ Ordering Provider: Eric Santana DO Date of Service: 08/31/24 XR/XR wrist LT min 3V*: R22.32 - Localized swelling, mass and lump, left upper limb 4 views left wrist plain film COMPARISON: None HISTORY: Left wrist mass for 3 weeks ACUTE FINDINGS: None DEGENERATIVE CHANGE: Ulnar minus variance. Elongated ulnar styloid. Possible abutment changes SOFT TISSUE FINDINGS: No soft tissue calcification. No radiodense foreign body JOINT EFFUSION: None POSTOP CHANGES: None BONE MINERALIZATION: Adequate. No bony lesion XR/XR wrist LT min 3V* IMPRESSION: No bony or soft tissue lesion. Ulnar minus variance. Impression dictated by: Malick Lawler M.D. 08/31/2024 1:27 PM Dictation Location: RADIO-PC-16 Transcribed By: [facility] 08/31/24 1327 Dictated By: Malick Lawler DO 08/31/24 1322 Signed By: 08/31/24 132 [facility] XR wrist LT min 3V*on 2024 XR wrist LT min 3V* [facility] [address] [place] [address] XRay Report Signed Patient: Mariangel Montgomery MR#: [id number] 62 : 1995 Acct:[id number] Age/Sex: 28 / F ADM Date: 08/31/24 Loc: [facility] Room: Type: [facility] Attending Dr: Eric Santana DO Copies to: Eric Santana DO Ordering Provider: Eric Santana DO Date of Service: 08/31/24 XR/XR wrist LT min 3V*: R22.32 - Localized swelling, mass and lump, left upper limb 4 views left wrist plain film COMPARISON: None HISTORY: Left wrist mass for 3 weeks ACUTE FINDINGS: None DEGENERATIVE CHANGE: Ulnar minus variance. Elongated ulnar styloid. Possible abutment changes SOFT TISSUE FINDINGS: No soft tissue calcification. No radiodense foreign body JOINT EFFUSION: None POSTOP CHANGES: None BONE MINERALIZATION: Adequate. No bony lesion XR/XR wrist LT min 3V* IMPRESSION: No bony or soft tissue lesion. Ulnar minus variance. Impression dictated by: Malick Lawler M.D. 08/31/2024 1:27 PM Dictation Location: [place] [address] Transcribed By: [facility] 08/31/24 1327 Dictated By: Malick Lawler DO 08/31/24 1322 Signed By: 08/31/24 1327 Normal [facility] EMG 2 Extremitieson 12-12-19 Carpal tunnel syndrome bilaterally, very minimal bilaterally, improved from study in 2020 [facility] NVC 9-10 Nerveson 12-12-2023 Carpal tunnel syndrome bilaterally, very minimal bilaterally, improved from study in 2020 [facility] XR hand BI 3Von 12-11-2023 XR hand BI 3V [facility] [place] [address] XRay Report Signed Patient: Mariangel Montgomery MR#: [id number] 62 : 1995 Acct:[id number] Age/Sex: 28 / F ADM Date: 12/11/23 Loc: [facility] Room: Type: [facility] Attending Dr: Eric Santana DO Copies to: Eric Santana DO Ordering Provider: Eric Santana DO Date of Service: 12/11/23 XR/XR hand BI 3V: M79.641 - Pain in right hand XR hand BI 3V 12/11/2023 8:52 AM SIGNS AND SYMPTOMS: Bilateral hand pain and numbness with tingling extending to the distal phalanx right greater than left PROTOCOL: Frontal, lateral, and oblique radiographs of the bilateral hands COMPARISON: None FINDINGS: The bones are in anatomic alignment. The joint spaces are preserved. There is no fracture or dislocation. The radiocarpal joint is preserved. No soft tissue swelling. XR/XR hand BI 3V IMPRESSION: No acute bony injury, significant soft tissue swelling, or significant degenerative change. Impression dictated by: Keri Randall M.D.12/11/2023 12:09 PM Dictation Location: [place] [address] Transcribed By: [facility] 12/11/23 1209 Dictated By: Keri Randall II, MD 12/11/23 1208 Signed By: 12/11/23 1209 Normal [facility] HBSab Qnt LCon 11-22-2023 [place] [id number] mIU/mL Invalid Interpretation Code Immunity>10 [facility] Comment on above: Result Comment: Resu lts confirmed on dilution. Status of Immunity Anti-HBs Level Inconsistent with Immunity 0.0 - 10.0 Consistent with Immunity >10.0 Performed At: [facility] [address] [place], [place] [id number] Allen Allan PhD Ph:[phone] Performed By: #### 1 [id number] #### [facility] (DEFAULT) [address] [place] [address] Lab - Toxicology Resultson 1 Lab - Toxicology Results [id number]#1 .00OTGTIFF Normal [facility] Nicotine Metabolite, Urine L Con 11-21-2023 Cotinine LC Negative Invalid Interpretation Code [id number] [facility] Comment on above: Result Comment: Perf ormed At: [facility] [place] [address] [place], [place] [id number] Mary Butler PhD Ph:[phone] Performed By: #### 1 [id number] #### [facility] (DEFAULT) [address] [place] [address] QuantiFERON-TB Gold Pluson 1 QuantiFERON Incubation Incubation performed. Inv alid Interpretation Code [facility] Comment on above: Result Comment: Perf ormed At: [address] [id number] Allen Allan PhD Ph:[phone] Performed By: #### 3 [id number] #### [facility] (DEFAULT) [address] [place] [address] QuantiFERON-TB Gold Plus Negative Invalid Interpretation Code Negative [facility] Comment on above: Result Comment: No r esponse to M tuberculosis antigens detected. Infection with M tuberculosis is unlikely, but high risk individuals should be considered for additional testing (ATS/IDSA/CDC Clinical Practice Guidelines, 2017). The reference range is an Antigen minus Nil result of <0.35 IU/mL. Chemiluminescence immunoassay methodology Performed At: [facility] [id number] Allen Allan PhD Ph:[phone] Performed By: #### 7 [id number] #### [facility] (DEFAULT) [address] [place] [address] HBsAg Screen LCon 11-20-2023 HBsAg Screen LC Negative Invalid Interpretation Code Negative [facility] Comment on above: Result Comment: Perf ormed At: [facility] [id number] Allen Allan PhD Ph:[phone] Performed By: #### 3 [id number], [id number] #### [facility] (DEFAULT) [address] [place] [address] Lab - Toxicology Resultson 1 Lab - Toxicology Results [id number]#[address] [facility] Measles/Mumps/Rubella Immuni ty LCon 11-20-2023 Mumps Abs, IgG LC <9.0 Low Immune >10.9 [facility] Comment on above: Result Comment: Nega tive <9.0 Equivocal 9.0 - 10.9 Positive >10.9 A positive result generally indicates past exposure to Mumps virus or previous vaccination. Performed At: [facility] [id number] Allen Allan PhD Ph:[phone] Performed By: #### 3 [id number], [id number] #### [facility] (DEFAULT) [address] [place] [address] Rubella Antibodies, IgG LC 5.83 index Invalid Interpretation Code Immune >0.99 [facility] Comment on above: Result Comment: Non- immune <0.90 Equivocal 0.90 - 0.99 Immune >0.99 Performed By: #### 3 [id number], [id number] #### [facility] (DEFAULT) [address] [place] [address] Rubeola Ab, IgG, EIA LC 133.0 AU/mL Invalid Interpretation Code Immune >16.4 [facility] Comment on above: Result Comment: Nega tive <13.5 Equivocal 13.5 - 16.4 Positive >16.4 Presence of antibodies to Rubeola is presumptive evidence of immunity except when acute infection is suspected. Performed By: #### 3 [id number], [id number] #### [facility] (DEFAULT) [address] [place] [address] Triage Panel 10on 11-20-2023 Drug Screen Complete Collected [facility] Comment on above: Performed By: #### 2 [id number] #### [facility] (DEFAULT) [address] [place] [address] Miscellaneouson 11-19-2023 Miscellaneous [id number] 1.00OTGTIFF [facility] Provider Orderson 11-19-2023 Provider Orders [id number]# 1.00OTGTIFF [facility] CT Head or Brain w/o Contras ton [...] M.D. Transcribed by: MENDY Technologist: BRIAN Stone [facility] ED Clinical Summaryon 2023 ED Clinical Summary ED Clinical Summary [place] [id number] ED Clinical Summary Person Information Name: MARIANGEL MONTGOMERY/[facility] Age: 27 Years : 1995 Sex: Female Language: Hungarian PCP: Lona Estrada MD Marital Status: Visit Id: Visit Reason: [...] 08/26/2023 00:23:44 08/26/2023 00:23:44 08/26/2023 00:23:44 ADDRESS: [address] [place] [id number] PHYS DOC NOTES: MEDICAL INFORMATION: Prescriptions Given: PATIENT EDUCATION INFORMATION: Instructions: General Headache Without Cause Follow up: With: Address: When: Lona Estrada [address] [place] [address] [place] [address] Business (1) In 3 days DIAGNOSIS: Headache Normal [facility] ED Patient Summaryon 024 ED Patient Summary ED Patient Summary [place] [id number] Patient Discharge Instructions Person Information Name: MARIANGEL MONTGOMERY Age: 27 Years Arrival Date: 08/25/2023 20:33:54 Discharge Diagnosis: Headache Primary Care Physician: Lona Estrada MD Provider Information Primary Provider: Ced Saul DO Advanced Pastrycook:None The exam and treatment you received in the Emergency Department were for an urgent problem and are not intended as complete care. It is important that you follow up with a doctor, nurse practitioner, or physician?s talent acquisition assistant for ongoing care. If your symptoms become worse or you do not improve as expected and you are unable to reach your usual health care provider, you should return to the Emergency Department. We are available 24 hours a day. MARIANGEL MONTGOMERY has been given the following list of patient education materials, prescriptions and follow-up instructions: Follow-up Instructions: With: Address: When: Lona Estrada [address] [facility], [address] [place] [id number] Business (1) In 3 days In the event that this physician does not participate in your insurance network, please consult with your insurance company to find a nearby participating provider. Patient Education Materials: General Headache Without Cause A MESSAGE TO ALL PATIENTS REGARDING OPIOIDS PRESCRIPTION OPIOIDS: WHAT YOU NEED TO KNOW Prescription opioids can be used to help relieve reetprib-sh-toofsw pain and are often prescribed following a [...] be struggling with addiction, tell your health school child care attendant and ask for guidance or call [facility] National Helpline at 2-102-823-UZAZ. e Source: [place] Department (more content not included)... Normal [facility] XR Chest Single Viewon 08-25 XR [...] mGy = n/a DAP = n/a Normal [facility] BMPOrdered By: SYSTEM SYSTEM on 08-25-2023 Anion gap [Moles/Vol] 12 mmol/L Normal 6 - 16 mEq/L R emisol Chem Comment on above: Performed By: #### 2 [id number] #### [facility] [address] [place] [address] Calcium [Mass/Vol] 9.1 mg/dL Normal 8.9 - 11. 1 mg/dL [facility] Comment on above: Performed By: #### 2 [id number] #### [facility] [address] [place] [address] Chloride [Moles/Vol] 104 mmol/L Normal 101 - 1 11 mmol/L [facility] Comment on above: Performed By: #### 2 [id number] #### [facility] [address] [place] [address] CO2 [Moles/Vol] 25 mmol/L Normal 21 - 31 mmol/L [facility] Comment on above: Performed By: #### 2 634223 #### [facility] [address] [place] [address] Creatinine [Mass/Vol] 0.6 mg/dL Normal 0.5 - 1.3 mg/dL [facility] Comment on above: Performed By: #### 2 725224 #### [facility] [address] [place] [address] Glucose [Mass/Vol] 104 mg/dL Normal 55 - 199 mg/dL [facility] Chem Comment on above: Performed By: #### 2 345806 #### [facility] [address] [place] [address] Potassium [Moles/Vol] 3.7 mmol/L Normal 3.5 - 5.3 mmol/L [facility] Comment on above: Performed By: #### 2 138457 #### [facility] [address] [place] [address] Sodium [Moles/Vol] 137 mmol/L Normal 135 - 145 mmol/L [facility] Chem Comment on above: Performed By: #### 2 861757 #### [facility] [address] [place] [address] Urea nitrogen [Mass/Vol] 11 mg/dL Normal 5 - 21 mg/dL [facility] Chem Comment on above: Performed By: #### 2 [id number] #### [facility] [address] [place] [address] 25897 BMPon 08-25-2023 Urea nitrogen/Creatinine [Mass ratio] 18 No Units Normal 10-20 [facility] Comment on above: Performed By: #### 2 [id number] #### [facility] [address] [place] [address]171 CBC w/ Auto DiffOrdered By: SYSTEM SYSTEM on 08-25-2023 Basophils/100 WBC (Bld) 0.5 % Normal 0.0 - 2.0 % Rem[facility] Heme Comment on above: Performed By: #### 2 968124 #### [facility] [address] [place] [address] Basophils/Leukocytes Auto (Bld) [Pure # fraction] 0.0 E9/L Normal 0.0 - 0.2 E9/L [facility] Comment on above: Performed By: #### 2 780206 #### [facility] [address] [place] [address]757 Eosinophils (Bld) [#/Vol] 0.1 E9/L Normal 0.0 - 0.5 E9/L [facility] Comment on above: Performed By: #### 2 812156 #### [facility] [address] [place] [address]1291 Eosinophils/100 WBC (Bld) 1.6 % Normal 0.0 - 8.0 % [facility] Comment on above: Performed By: #### 2 623071 #### [facility] [address] [place] [address]8719 Erythrocyte distribution width (RBC) [Ratio] 14.4 % High 10.9 - 14.2 % [facility] Comment on above: Performed By: #### 2 541008 #### [facility] [address] [place] [address]1909 Hematocrit (Bld) [Volume fraction] 41.0 % Normal 34.0 - 46.0 % [facility] Comment on above: Performed By: #### 2 564411 #### [facility] [address] [place] [address] Hemoglobin (Bld) [Mass/Vol] 14.2 g/dL Normal 12.0 - 16.0 gm/dL [facility] Comment on above: Performed By: #### 2 945119 #### [facility] [address] [place] [address] Lymphocytes (Bld) [#/Vol] 2.1 E9/L Normal 1.0 - 4.0 E9/L [facility] Comment on above: Performed By: #### 2 952982 #### [facility] [address] [place] [address] Lymphocytes/100 WBC (Bld) 23.8 % Normal 14.0 - 50.0 % [facility] Comment on above: Performed By: #### 2 089910 #### [facility] [address] [place] [address] 23385 MCH (RBC) [Entitic mass] 28.6 pg Normal 27.0 - 34.0 pg [facility] Heme Comment on above: Performed By: #### 2 833900 #### [facility] [address] [place] [address] MCHC (RBC) [Mass/Vol] 34.7 g/dL Normal 31.4 - 36.0 gm/dL [facility] Comment on above: Performed By: #### 2 293610 #### [facility] [address] [place] [address] MCV (RBC) [Entitic vol] 82.5 fL Normal 80.0 - 100.0 fL [facility] Comment on above: Performed By: #### 2 [id number] #### [facility] [address] [place] [address] Monocytes (Bld) [#/Vol] 0.6 E9/L Normal 0.2 - 1.0 E9/L [facility] Comment on above: Performed By: #### 2 972410 #### [facility] [address] [place] [address] Neutrophils (Bld) [#/Vol] 5.8 E9/L Normal 2.0 - 7.5 E9/L [facility] Comment on above: Performed By: #### 2 [id number] #### [facility] [address] [place] [address] Neutrophils/100 WBC (Bld) 66.7 % Normal 36.0 - 75.0 % [facility] Comment on above: Performed By: #### 2 675951 #### [facility] [address] [place] [address] Platelet 223.0 E9/L Normal 150.0 - 500.0 E9/L [facility] Comment on above: Performed By: #### 2 904782 #### [facility] [address] [place] [address]42[address] Platelet mean volume (Bld) [Entitic vol] 9.0 fL Normal 6.4 - 10.8 fL [facility] Comment on above: Performed By: #### 2 210377 #### [facility] [address] [place] [address] 62794 RBC (Bld) [#/Vol] 5.0 E12/L Normal 4.3 - 5.9 E12/L [facility] Comment on above: Performed By: #### 2 001132 #### [facility] [address] [place] [address] 64164 WBC corrected for nucl RBC Auto (Bld) [#/Vol] 8.8 E9/L Normal 4.0 - 11.0 E9/L [facility] Comment on above: Performed By: #### 2 446639 #### [facility] [address] [place] [address] CHEMISTRYOrdered By: SYSTEM SYSTEM on 08-25-2023 Troponin [...] Sensitivity Troponin I Instructions For Use, Jorje [place], September 2017) Urea nitrogen/Creatinine [Mass ratio] 18 mg/mg Normal 10 - 20 [facility] Chem COAGULATIONOrdered By: Nani Caceres on 08-25-2023 aPTT Coag (PPP) [Time] 32.5 s Normal 25.1 - 36.5 second(s) [facility] Auto Coag Comment on above: Interpretive Data: P arameter 15 days - 4 weeks 1 - [...] the same coagulation reagent and instrumentation as [facility]. Currently there are no coagulation studies available worldwide for children to 14 days, and no normal ranges. Heparin therapeutic range (represented by Anti-Factor Xa activity of 0.2 - 0.4 U/mL) corresponds to PTT of 56.6 - 109.0 sec. PT Coag (PPP) [Time] 10.7 s Normal 9.4 - 1 2.5 second(s) [facility] Auto Coag Comment on above: Interpretive Data: [...] the same coagulation reagent and instrumentation as [facility]. Currently there are no coagulation studies available worldwide for children to 14 days, and no normal ranges. ED Note-Physicianon 07-07-20 24 ED Note-Physician ED Note-Physician Basic Information Time Seen: Ced Saul DO. 08/25/2023 20:38 History of Present Illness HPI: [...] and Complexity of Problems Differential Diagnosis: [] [facility] Data External documents reviewed: N/A My EKG [...] Information Lona Natalie In 3 days [address] [facility] [address]- Business (1) Additional Instructions: Patient Education General [...] 21:00:00) Lymph Auto: 23.8 % (08/25/23 21:00:00) [place]more Auto: 7.4 % (08/25/23 21:00:00) Eos Auto: 1.6 % (08/25/23 21:00:00) Basophil Auto: 0.5 % (08/25/23 21:00:00) Neutro Absolute: 5.8 E9/L (08/25/23 21:00:00) Lymph Absolute: 2.1 E9/L (08/25/23 21:00:00) [place] Absolute: 0.6 E9/L (08/25/23 21:00:00) Eos Absolute: [...] Potassium Lvl: (more content not included)... Normal [facility] Comment on above: Result Comment: Elec tronically Signed By: Ced Saul DO\.br\Date and Time Signed: 08/25/23 23:50 EDT HEMATOLOGYOrdered By: SYSTEM SYSTEM on 08-25-2023 Monocytes/100 WBC (Bld) 7.4 % Normal 4.0 - 14.0 % Remisol Heme PT & PTTon 08-25-2023 aPTT Coag (PPP) [Time] 32.5 second(s) Normal 25.1-36.5 [facility] Comment on above: Result Comment: Para [...] the same coagulation reagent and instrumentation as [facility]. Currently there are no coagulation studies available worldwide for children to 14 days, and no normal ranges. Heparin therapeutic range (represented by Anti-Factor Xa activity of 0.2 - 0.4 U/mL) corresponds to PTT of 56.6 - 109.0 sec. Performed By: #### 1 [id number] #### [facility] [address] [place] [address] PT Coag (PPP) [Time] 10.7 second(s) Normal 9.4-12.5 [facility] Comment on above: Result Comment: 15 [...] the same coagulation reagent and instrumentation as [facility]. Currently there are no coagulation studies available worldwide for children to 14 days, and no normal ranges. Performed By: #### 1 [id number] #### [facility] [address] [place] [address] PT & PTTOrdered By: Brandie Caceres on 08-25-2023 INR Coag (PPP) [Relative time] 0.96 {INR} Invalid Interpretation Code [facility] Auto Coag Comment on above: Result Comment: INR results are specifically intended to assess patients stabilized on long-term Anticoagulation therapy suggested INR?s ?Less Intensive Anticoagulation? 2.0 ? 3.0 Conventional Range 3.0 ? 4.5 Performed By: #### 1 [id number] #### [facility] [address] [place] [address] Interpretive Data: I NR results are specifically intended to assess patients stabilized on long-term Anticoagulation therapy suggested INR s Less Intensive Anticoagulation 2.0 3.0 Conventional Range 3.0 4.5 Troponin 0 Hr.on 08-25-2023 Troponin HS <2.30 Low 10.10-27.10 [facility] Comment on above: Result Comment: The 95% CI (Confidence Interval) PPV (Positive Predictive Value) for myocardial infarction in females is 38 pg/mL, in males 51 pg/mL. The results should be used in conjunction with clinical conditions of myocardial infarction. (Access High Sensitivity Troponin I Instructions For Use, Jorje Nina, September 2017) Performed By: #### 1 [id number] #### [facility] [address] [place] [address] eGFROrdered By: SYSTEM SYSTE Scandit on 08-25-2023 eGFR 124 mL/min/1.73 m2 Normal >=59 Remiso l Chem Comment on above: Order Comment: Order added by Discern Expert. Performed By: #### 1 [id number] #### [facility] [address] [place] [address] Quantiferon-TB Plus (Client Incubated)on 06-28-2023 Gamma interferon background IA Qn (Bld) 0.05 International_Unit/mL Invalid Interpretation Code [facility] Comment on above: Performed By: #### 2 674724, [id number], [id number], [id number] #### [facility] [address] [place] [address] M. tuberculosis stim IFN-g by CD4+ CD8+ T-cells corrected for background Qn (Bld) 0.04 International_Unit/mL Invalid Interpretation Code [facility] Comment on above: Performed By: #### 2 193886, [id number], [id number], [id number] #### [facility] [address] [place] [address] M. tuberculosis stim IFN-g by CD4+ T-cells corrected for background Qn (Bld) 0.04 International_Unit/mL Invalid Interpretation Code [facility] Comment on above: Performed By: #### 2 512147, [id number], [id number], [id number] #### [facility] [address] [place] [address] M. tuberculosis stim IFN-g Ql (Bld) [Interp] Negative Invalid Interpretation Code Negative [facility] Comment on above: Result Comment: No [...] interferon gamma. Chemiluminescence immunoassay methodology Performed at: [email or web address] [address] [place] [id number] PhD Allen Allan Performed By: #### 2 590893, [id number], [id number], [id number] #### [facility] [address] [place] [address]69 Mitogen stimulated gamma interferon corrected for background Qn (Bld) >10.00 Invalid Interpretation Code [facility] Comment on above: Performed By: #### 2 812054, [id number], [id number], [id number] #### [facility] [address] [place] [address] Service comment (Unsp spec) [Interp] Comment Invalid Interpretation Code [facility] Comment on above: Result Comment: Saeed [...] for the test. Performed By: #### 2 446039, [id number], [id number], [id number] #### [facility] [address] [place] [address] Hep Bs Abon 06-27-2023 HBV surface Ab Ql (S) Reactive Invalid Interpretation Code [facility] Comment on above: Result Comment: Non Reactive: Inconsistent with immunity, less than 10 mIU/mL Reactive: Consistent with immunity, greater than 9.9 mIU/mL Performed at: [facility] [id number] PhD Allen Allan Performed By: #### 2 100909, [id number], [id number], [id number] #### [facility] [address] [place] [address] Measles/Mumps/Rubella Immuni tyon 06-27-2023 MeV IgG IA Qn (S) {index_val} Invalid Interpretation Code Immune >16.4 [facility] Comment on above: Result Comment: Nega tive <13.5 Equivocal 13.5 - 16.4 Positive >16.4 Presence of antibodies to Rubeola is presumptive evidence of immunity except when acute infection is suspected. Performed By: #### 2 928676, [id number], [id number], [id number] #### [facility] [address] [place] [address] MuV IgG IA Qn (S) 12.7 A unit/mL Invalid Interpretation Code Immune >10.9 [facility] Comment on above: Result Comment: Nega tive <9.0 Equivocal 9.0 - 10.9 Positive >10.9 A positive result generally indicates past exposure to Mumps virus or previous vaccination. Performed at: [address] [id number] PhD Allen Allan Performed By: #### 2 155757, [id number], [id number], [id number] #### [facility] [address] [place] [address] Rubella virus IgG Qn (S) 8.63 [IU]/mL Invalid Interpretation Code Immune >0.99 [facility] Comment on above: Result Comment: Non- immune <0.90 Equivocal 0.90 - 0.99 Immune >0.99 Performed By: #### 2 743918, [id number], [id number], [id number] #### [facility] [address] [place] [address] Varic IgGon 06-27-2023 VZV IgG IA Qn (S) 1013 Invalid Interpretation Code Immune >165 [facility] Comment on above: Result Comment: Nega tive <135 Equivocal 135 - 165 Positive >165 A positive result generally indicates exposure to the pathogen or administration of specific immunoglobulins, but it is not indication of active infection or stage of disease. Performed at: [facility] [address] [place] [address] [id number] PhD Allen Allan Performed By: #### 2 263857, [id number], [id number], [id number] #### [facility] [address] [place] [address] Adilson Kiton 10-18-2022 Adilson Kit Forwarded to [facility] Comment on above: Performed By: #### N ATER #### [address] [address] [employer] Operator: Neeraj Cabrera MD ER URINE PROFILEon 3 Bilirubin Ql (U) Negative Normal NEGATIVE [facility] Comment on above: Performed By: #### E SHIMA BOTELLORO ####[facility] [address] [place] [address]Dr. Jc Norris Clarity (U) CLEAR Normal CLEAR [facility] Comment on above: Performed By: #### SHIMA OSBORNRO ####[facility] [address] [place] [address]Dr. Jc Norris Color (U) LT. YELLOW Normal YELLOW [facility] Comment on above: Performed By: #### SHIMA OSBORNRO ####[facility] [address] [place], [place] [address]Dr. Jc Norris ERUAHD A micrscopic examination will be performed if indicated. Normal [facility] Comment on above: Performed By: #### SHIMA OSBORNRO ####[facility] [address] [place], [place] [address]Dr. Jc Norris Glucose Ql (U) Negative Normal NEGATIVE [facility] Comment on above: Performed By: #### SHIMA OSBORNRO ####[facility] [address] [place], [place] [address]Dr. Jc Norris Hemoglobin Ql (U) MODERATE Abnormal NEGATIVE [facility] Comment on above: Performed By: #### IVET OSBORN ####[facility] [address] [place], [place] [address]Dr. Jc Norris Ketones Ql (U) Negative Normal NEGATIVE [facility] Comment on above: Performed By: #### SHIMA OSBORNRO ####[facility] [address] [place], [place] [address]Dr. Jc Norris LEUKOCYTES SMALL Abnormal NEGATIVE [facility] Comment on above: Performed By: #### SHIMA OSBORNRO ####[facility] [address] [place], [place] [address]Dr. Jc Norris Nitrite Ql (U) Negative Normal NEGATIVE [facility] Comment on above: Performed By: #### SHIMA OSBORNRO ####[facility] [address] [place], [place] [address]Dr. Jc Norris pH (U) 6.5 [pH] Normal 5-9 [facility] Comment on above: Performed By: #### IVET OSBORN ####[facility] Dms[address]ws[address] [place], [place] [address]Dr. Jc Norris SPEC GRAVITY 1.020 Normal 1.005-<=1.02 5 [facility] Comment on above: Performed By: #### SHIMA OSBORNRO ####[facility] K[address] [place], [place] [address]Dr. Jc Norris UA PROTEIN Negative Normal NEGATIVE/ TRACE [facility] Comment on above: Performed By: #### SHIMA OSBORNRO ####[facility] [address]el[address] [place], [place] [address]Dr. Jc Norris UR MICRO IND INDICATED Normal [facility] Comment on above: Performed By: #### SHIMA OSBORNRO ####[facility] [address]xvi[address] [place], [place] [address]Dr. Jc Norris Urobilinogen Qn (U) 0.2 {Diamond'U}/dL Normal 0.2 - 1. 0 [facility] Comment on above: Performed By: #### IVET OSBORN ####[facility] [address]keerdrs[address] [place], [place] [address]Dr. Jc Norris URINE MICROSCOPIC ONLYon BACTERIA TRACE Abnormal NONE SEEN [facility] Comment on above: Performed By: #### SHIMA OSBORNRO ####[facility] Il[address]vs[address]llr[address] [place], [place] [address]Dr. Jc Norris Bacteria identified Cx Nom (U) NOT INDICATED Normal [facility] Comment on above: Performed By: #### SHIMA OSBORNRO ####[facility] E[address] [place], [place] [address]Dr. Jc Norris CAST NONE SEEN Normal NONE SEEN [facility] Comment on above: Performed By: #### SHIMA OSBORNRO ####[facility] I[address]ew[address] [place], [place] [address]Dr. Jc Norris Crystals LM Nom (Urine sed) NONE SEEN Normal NONE SEEN [facility] Comment on above: Performed By: #### E RUR, UMICRO ####[facility] [address] [place] [id number]. Jc Norris Epithelial cells LM Ql (Urine sed) MODERATE Abnormal NONE SEEN /RARE [facility] Comment on above: Performed By: #### E RUR, UMICRO ####[facility] [address] [place] [phone] Norris MUCOUS TRACE Abnormal NONE SEEN [facility] Comment on above: Performed By: #### E RUR, UMICRO ####[facility] [address] [place] [phone]. Jc Norris RBC 2-5 Abnormal 0-2 [facility] Comment on above: Performed By: #### E RUR, UMICRO ####[facility] [address] [place] [phone]. Jc Norris WBC 2-5 Abnormal NONE SEEN [facility] Comment on above: Performed By: #### E RUR, UMICRO ####[facility] [address] [place] [phone] Norris HEP B SURFACE ANTIGEN SCREEN on 07-01-2022 HBsAg Screen Negative Normal Negative [facility] Comment on above: Performed By: #### C MP, LIPID, TSH, T7, BNP #### [facility] [address] [place], [place] [address] Dr. Jc Norris HEPATITIS C VIRUS AB W/ REFL EX QUANTon 07-01-2022 HCV AB Non-Reactive Normal Non Reactive [facility] Comment on above: Performed By: #### H CVPCRR ####[facility] [address] [place] [phone]. Jc Norris Interpretation: Comment Normal [facility] Comment on above: Result Comment: Not infected with HCV unless early or acute infection is suspected (which may be delayed in an immunocompromised individual), or other evidence exists to indicate HCV infection. Performed By: #### H CVPCRR ####[facility] [address] [place] [address]Dr. Jc Norris RPR QUANTon 07-01-2022 Rapid Plasma Reagin, Quant Non-Reactive Normal NonRea<1:1 [facility] Comment on above: Result [...] utilized, such as Treponema pallidum (Syphilis) Screening [place] (804238) or Rapid Plasma Reagin (RPR) Test With Reflex to Quantitative RPR and Confirmatory Treponema pallidum Antibodies (992060). Performed By: #### R PRQ ####[facility] [address] [place] [address]Dr. Jc Norris RUBELLA AB IGGon 07-01-2022 Rubella Antibodies, IgG 3.13 index Normal Immune >0.99 [facility] Comment on above: Result Comment: Non- immune <0.90 Equivocal 0.90 - 0.99 Immune >0.99 Performed By: #### C BC #### [facility] [address] [place] [address] [address] Jc Norris BOX TEST SENT OUTon 07-01-19 SENT TO REF LAB 06/30/22 Normal [facility] Comment on above: Performed By: #### C MP, LIPID, TSH, T7, BNP #### [facility] [address] [place] [address] [address] Jc Norris CBC AUTO DIFFon 06-30-2022 BASO # 0.0 103/ul Normal 0.0-0.1 [facility] Comment on above: Performed By: #### C BC #### [facility] [address] [place] [address] [address] Jc Norris Basophils/100 WBC (Bld) 0.4 % Normal 0.2-2.0 [facility] Comment on above: Performed By: #### C BC #### [facility] [address] [place] [address] [address] Jc Norris EO # 0.1 103/ul Normal 0.0-0.7 [facility] Comment on above: Performed By: #### C BC #### [facility] [address] [place] [address] [address] Jc Norris Eosinophils/100 WBC (Bld) 0.7 % Critically low 0.9-7.0 [facility] Comment on above: Performed By: #### C BC #### [facility] [address] [place] [address] Dr. Jc Norris Erythrocyte distribution width (RBC) [Ratio] 12.6 % Normal 11.0-15.0 [facility] Comment on above: Performed By: #### C BC #### [facility] [address] [place] [address] Dr. Jc Norris Hematocrit (Bld) [Volume fraction] 40.1 % Normal 36.0-48.0 [facility] Comment on above: Performed By: #### C BC #### [facility] [address] [place] [address] Dr. Jc Norris Hemoglobin (Bld) [Mass/Vol] 13.2 g/dL Normal 12.0-16.0 [facility] Comment on above: Performed By: #### C BC #### [facility] [address] [place] [address] Dr. Jc Norris IG # 0.05 10e3/ul Critically high 0.00-0.03 [facility] Comment on above: Performed By: #### C BC #### [facility] [address] [place] [address] Dr. Jc Norris IG % 0.6 % Critically high 0.0-0.5 [facility] Comment on above: Performed By: #### C BC #### [facility] [address] [place] [address] Dr. Jc Norris LYMPH # 1.3 103/ul Normal 1.2-3.8 [facility] Comment on above: Performed By: #### C BC #### [facility] [address] [place] [address] Dr. Jc Norris Lymphocytes/100 WBC (Bld) 16.3 % Critically low 20.5-60.0 [facility] Comment on above: Performed By: #### C BC #### [facility] [address] [place] [address] Dr. Jc Norris MANUAL DIFF REQ NO Normal [facility] Comment on above: Performed By: #### C BC #### [facility] [address] [place] [address] Dr. Jc Norris MCH (RBC) [Entitic mass] 28.1 pg Normal 26.7-34.0 [facility] Comment on above: Performed By: #### C BC #### [facility] [address] [place] [address] Dr. Jc Norris MCHC (RBC) [Mass/Vol] 32.9 g/dL Normal 29.9-35.2 [facility] Comment on above: Performed By: #### C BC #### [facility] [address] [place] [address] Dr. Jc Norris MCV (RBC) [Entitic vol] 85.5 fL Normal 81.0-99.0 [facility] Comment on above: Performed By: #### C BC #### [facility] [address] [place] [address] Dr. Jc Norris MONO # 0.5 103/ul Normal 0.3-0.8 [facility] Comment on above: Performed By: #### C BC #### [facility] [address] [place] [address] Dr. Jc Norris Monocytes/100 WBC (Bld) 6.4 % Normal 1.7-12.0 [facility] Comment on above: Performed By: #### C BC #### [facility] [address] [place] [address] Dr. Jc Norris NEUT # 6.1 103/ul Normal 1.4-6.5 [facility] Comment on above: Performed By: #### C BC #### [facility] [address] [place] [address] Dr. Jc Norris Neutrophils/100 WBC (Bld) 75.6 % Critically high 43.0-75.0 [facility] Comment on above: Performed By: #### C BC #### [facility] [address] [place] [address] [address] Jc Norris Platelet mean volume (Bld) [Entitic vol] 10.7 fL Normal 9.5-13.5 [facility] Comment on above: Performed By: #### C BC #### [facility] [address] [place] [address] [address] Jc Norris PLT 213 103/ul Normal 150-450 [facility] Comment on above: Performed By: #### C BC #### [facility] [address] [address] [address] Jc Norris RBC 4.69 106/ul Normal 4.20-5.40 [facility] Comment on above: Performed By: #### C BC #### [facility] [address] [address] [address] Jc Norris WBC 8.1 103/ul Normal 4.0-11.0 [facility] Comment on above: Performed By: #### C BC #### [facility] [address] [place] [address] [address] Jc Norris CULTURE URINEon 06-30-2022 CULTURE URINE Culture Observations : NO GROWTH. Normal [facility] Comment on above: Performed By: #### U RCX ####[facility] [address] [place] [address]Dr. Jc Norris GLYCOHEMOGLOBIN A1Con 2022 ADA RECOMMENDATION SEE BELOW Normal [facility] Comment on above: Result Comment: ADA RECOMMENDED LIMIT 4.0 - 6.0 ADA THERAPEUTIC TARGET < 7.0 ACTION SUGGESTED > 7.0 Performed By: #### C MP, LIPID, TSH, T7, BNP #### [facility] [address] [address] [address] Jc Norris Glucose [Mass/Vol] 105 mg/dL Normal [facility] Comment on above: Performed By: #### C MP, LIPID, TSH, T7, BNP #### [facility] [address] [address] [address] Jc Norris HbA1c (Bld) [Mass fraction] 5.3 % Normal 4.5-6.2 [facility] Comment on above: Performed By: #### C MP, LIPID, TSH, T7, BNP #### [facility] [address] [address] [address] Jc Norris TSHon 06-30-2022 TSH 1.580 uIU/mL Normal 0.358-3.740 [facility] Comment on above: Performed By: #### C MP, LIPID, TSH, T7, BNP #### [facility] [address] [address] [address] Jc Norris TYPE AND SCREENon 06-30-2022 TYPE AND SCREEN Negative Normal [facility] Comment on above: Performed By: #### T NS ####[facility] [address] [place] [address]Dr. Jc Norris US PREG TVon 06-28-2022 US [...] HEATHER ANDREWS Date: 2022-06-28 15:19 Normal [facility] ABO AND RH TYPEon 06-13-2022 ABO and Rh group Nom (Bld) ABO Rh Typing O Rh Positive Normal [facility] Comment on above: Performed By: #### A BORH ####[facility] [address] [place] [id number]. Jc Norris CBC AUTO DIFFon 06-13-2022 BASO # 0.0 103/ul Normal 0.0-0.1 [facility] Comment on above: Performed By: #### C BC #### [facility] [address] [address] [address] Jc Norris Basophils/100 WBC (Bld) 0.2 % Normal 0.2-2.0 [facility] Comment on above: Performed By: #### C BC #### [facility] [address] [place] [address] [address] Jc Norris EO # 0.1 103/ul Normal 0.0-0.7 [facility] Comment on above: Performed By: #### C BC #### [facility] [address] [address] [address] Jc Norris Eosinophils/100 WBC (Bld) 0.5 % Critically low 0.9-7.0 [facility] Comment on above: Performed By: #### C BC #### [facility] [address] [place] [address] Dr. Jc Norris Erythrocyte distribution width (RBC) [Ratio] 12.4 % Normal 11.0-15.0 [facility] Comment on above: Performed By: #### C BC #### [facility] [address] [place] [address] Dr. Jc Norris Hematocrit (Bld) [Volume fraction] 41.0 % Normal 36.0-48.0 [facility] Comment on above: Performed By: #### C BC #### [facility] [address] [place] [address] Dr. Jc Norris Hemoglobin (Bld) [Mass/Vol] 13.3 g/dL Normal 12.0-16.0 [facility] Comment on above: Performed By: #### C BC #### [facility] [address] [place] [address] [address] Jc Norris IG # 0.05 10e3/ul Critically high 0.00-0.03 [facility] Comment on above: Performed By: #### C BC #### [facility] [address] [place] [address] Dr. Jc Norris IG % 0.5 % Normal 0.0-0.5 [facility] Comment on above: Performed By: #### C BC #### [facility] [address] [place] [address] Dr. Jc Norris LYMPH # 1.3 103/ul Normal 1.2-3.8 [facility] Comment on above: Performed By: #### C BC #### [facility] [address] [place] [address] Dr. Jc Norris Lymphocytes/100 WBC (Bld) 12.8 % Critically low 20.5-60.0 [facility] Comment on above: Performed By: #### C BC #### [facility] [address] [place] [address] Dr. Jc Norris MANUAL DIFF REQ NO Normal [facility] Comment on above: Performed By: #### C BC #### [facility] [address] [place] [address] Dr. Jc Norris MCH (RBC) [Entitic mass] 27.9 pg Normal 26.7-34.0 [facility] Comment on above: Performed By: #### C BC #### [facility] [address] [place] [address] Dr. Jc Norris MCHC (RBC) [Mass/Vol] 32.4 g/dL Normal 29.9-35.2 [facility] Comment on above: Performed By: #### C BC #### [facility] [address] [place] [address] Dr. Jc Norris MCV (RBC) [Entitic vol] 86.1 fL Normal 81.0-99.0 [facility] Comment on above: Performed By: #### C BC #### [facility] [address] [place] [address] Dr. Jc Norris MONO # 0.6 103/ul Normal 0.3-0.8 [facility] Comment on above: Performed By: #### C BC #### [facility] [address] [place] [address] Dr. Jc Norris Monocytes/100 WBC (Bld) 6.4 % Normal 1.7-12.0 [facility] Comment on above: Performed By: #### C BC #### [facility] [address] [place] [address] [address] Jc Norris NEUT # 7.9 103/ul Critically high 1.4-6.5 [facility] Comment on above: Performed By: #### C BC #### [facility] [address] [address] [address] Jc Norris Neutrophils/100 WBC (Bld) 79.6 % Critically high 43.0-75.0 [facility] Comment on above: Performed By: #### C BC #### [facility] [address] [place] [address] [address] Jc Norris Platelet mean volume (Bld) [Entitic vol] 11.1 fL Normal 9.5-13.5 [facility] Comment on above: Performed By: #### C BC #### [facility] [address] [place] [address] Dr. Jc Norris PLT 232 103/ul Normal 150-450 [facility] Comment on above: Performed By: #### C BC #### [facility] [address] [place] [address] [address] Jc Norris RBC 4.76 106/ul Normal 4.20-5.40 [facility] Comment on above: Performed By: #### C BC #### [facility] [address] [address] [address] Jc Norris WBC 9.9 103/ul Normal 4.0-11.0 [facility] Comment on above: Performed By: #### C BC #### [facility] [address] [place] [address] [address] Jc Norris CULTURE URINEon 06-13-2022 CULTURE URINE Culture Observations : LIGHT GROWTH OF MIXED GENITAL GENIE. NO POTENTIAL PATHOGENS SEEN. Normal [facility] Comment on above: Performed By: #### U RCX ####[facility] [address] [place] [address]Dr. Jc Norris ER URINE PROFILEon 3 Bilirubin Ql (U) Negative Normal NEGATIVE [facility] Comment on above: Performed By: #### U MICRO, ERUR, PREGU ####[facility] [address] [place] [address]Dr. Jc Norris Clarity (U) CLEAR Normal CLEAR [facility] Comment on above: Performed By: #### U MICRO, ERUR, PREGU ####[facility] [address] [place] [address]Dr. Jc Norris Color (U) LT. YELLOW Normal YELLOW [facility] Comment on above: Performed By: #### U MICRO, ERUR, PREGU ####[facility] [address] [place], [place] [address]Dr. Jc Norris ERUAHD A micrscopic examination will be performed if indicated. Normal [facility] Comment on above: Performed By: #### U MICRO, ERUR, PREGU ####[facility] [address] [place], [place] [address]Dr. Jc Norris Glucose Ql (U) Negative Normal NEGATIVE [facility] Comment on above: Performed By: #### U MICRO, ERUR, PREGU ####[facility] [address] [place], [place] [address]Dr. Jc Norris Hemoglobin Ql (U) Negative Normal NEGATIVE [facility] Comment on above: Performed By: #### U MICRO, ERUR, PREGU ####[facility] [address] [place], [place] [address]Dr. Jc Norris Ketones Ql (U) Negative Normal NEGATIVE [facility] Comment on above: Performed By: #### U MICRO, ERUR, PREGU ####[facility] [address] [place], [place] [address]Dr. Jc Norris LEUKOCYTES MODERATE Abnormal NEGATIVE [facility] Comment on above: Performed By: #### U MICRO, ERUR, PREGU ####[facility] [address] [place], [place] [address]Dr. Jc Norris Nitrite Ql (U) Negative Normal NEGATIVE [facility] Comment on above: Performed By: #### U MICRO, ERUR, PREGU ####[facility] [address] [place], [place] [address]Dr. Jc Norris pH (U) 5.0 [pH] Normal 5-9 [facility] Comment on above: Performed By: #### U MICRO, ERUR, PREGU ####[facility] [address] [place] [address]DrEric Norris SPEC GRAVITY 1.010 Normal 1.005-<=1.02 5 [facility] Comment on above: Performed By: #### U MICRO, ERUR, PREGU ####[facility] [address] [place] [address]DrEric Norris UA PROTEIN Negative Normal NEGATIVE/ TRACE [facility] Comment on above: Performed By: #### U MICRO, ERUR, PREGU ####[facility] [address] [place] [address]DrEric Norris UR MICRO IND INDICATED Normal [facility] Comment on above: Performed By: #### U MICRO, ERUR, PREGU ####[facility] [address] [place] [address]DrEric Norris Urobilinogen Qn (U) 0.2 {Diamond'U}/dL Normal 0.2 - 1. 0 [facility] Comment on above: Performed By: #### U MICRO, ERUR, PREGU ####[facility] [address] [place] [address]DrEric Norris PREG QUANT HCGon 06-13-2022 HCG QUANT 29115 mIU/mL Normal [facility] Comment on above: Performed By: #### C BC #### [facility] [address] [place] [address] Dr. Jc Norris HCG RANGE SEE BELOW Normal [facility] Comment on above: Result Comment: 5-50 0.2-1 WEEK 50-500 1-2 WEEKS 100-5,000 2-3 WEEKS 500-10,000 3-4 WEEKS 1,000-50,000 4-5 WEEKS 10,000-100,000 5-6 WEEKS 15,000-200,000 6-8 WEEKS 10,000-100,000 2-3 MONTHS Performed By: #### C BC #### [facility] [address] [place] [address] Dr. Jc Norris URon 06-13-2022 , QUAL Positive Abnormal NEGATIVE [facility] Comment on above: Performed By: #### U MICRO, ERUR, PREGU ####[facility] [address] [place] [address]Dr. Jc Norris PROF 14(COMP METB)on 023 Albumin [Mass/Vol] 3.6 g/dL Normal 3.4-5.0 [facility] Comment on above: Performed By: #### C BC #### [facility] [address] [place] [address] [address] Jc Norris Albumin/Globulin [Mass ratio] 1.0 {ratio} Normal [facility] Comment on above: Performed By: #### C BC #### [facility] [address] [address] [address] Jc Norris ALP [Catalytic activity/Vol] 84 U/L Normal 46-116 [facility] Comment on above: Performed By: #### C BC #### [facility] [address] [address] [address] Jc Norris ALT [Catalytic activity/Vol] 18 U/L Normal 14-59 [facility] Comment on above: Performed By: #### C BC #### [facility] [address] [address] [address] Jc Norris Anion gap [Moles/Vol] 10.9 mmol/L Normal [facility] Comment on above: Performed By: #### C BC #### [facility] [address] [address] [address] Jc Norris AST [Catalytic activity/Vol] 13 U/L Critically low 15-37 [facility] Comment on above: Performed By: #### C BC #### [facility] [address] [address] [address] Jc Norris Bilirubin [Mass/Vol] 0.2 mg/dL Normal 0.2-1.0 [facility] Comment on above: Performed By: #### C BC #### [facility] [address] [address] [address] Jc Norris Calcium [Mass/Vol] 9.1 mg/dL Normal 8.5-10.1 [facility] Comment on above: Performed By: #### C BC #### [facility] [address] [place] [address] Dr. Jc Norris Chloride [Moles/Vol] 102 mmol/L Normal 98-107 [facility] Comment on above: Performed By: #### C BC #### [facility] [address] [address] [address] Jc Norris CO2 [Moles/Vol] 25.8 mmol/L Normal 21.0-32.0 [facility] Comment on above: Performed By: #### C BC #### [facility] [address] [place] [address] Dr. Jc Norris Creatinine [Mass/Vol] 0.52 mg/dL Critically low 0.55-1.02 [facility] Comment on above: Performed By: #### C BC #### [facility] [address] [place] [address] Dr. Jc Norris EGFR-AF UKRAINIAN >60 Normal >=60 [facility] Comment on above: Performed By: #### C BC #### [facility] [address] [place] [address] Dr. Jc Norris EGFR-NON AF UKRAINIAN >60 Normal >=60 [facility] Comment on above: Performed By: #### C BC #### [facility] [address] [place] [address] Dr. Jc Norris Globulin (S) [Mass/Vol] 3.5 g/dL Normal [facility] Comment on above: Performed By: #### C BC #### [facility] [address] [place] [address] Dr. Jc Norris Glucose [Mass/Vol] 104 mg/dL Normal 74-106 [facility] Comment on above: Performed By: #### C BC #### [facility] [address] [place] [address] Dr. Jc Norris Potassium [Moles/Vol] 3.7 mmol/L Normal 3.5-5.1 [facility] Comment on above: Performed By: #### C BC #### [facility] [address] [address] [address] Jc Norris Protein [Mass/Vol] 7.1 g/dL Normal 6.4-8.2 [facility] Comment on above: Performed By: #### C BC #### [facility] [address] [address] [address] Jc Norris Sodium [Moles/Vol] 135 mmol/L Critically low 136-145 [facility] Comment on above: Performed By: #### C BC #### [facility] [address] [address] [address] Jc Norris Urea nitrogen [Mass/Vol] 8.0 mg/dL Normal 7.0-18.0 [facility] Comment on above: Performed By: #### C BC #### [facility] [address] [address] [address] Jc Norris Urea nitrogen/Creatinine [Mass ratio] 15.4 mg/mg Normal [facility] Comment on above: Performed By: #### C BC #### [facility] [address] [address] [address] Jc Norris URINE MICROSCOPIC ONLYon BACTERIA NONE SEEN Normal NONE SEEN [facility] Comment on above: Performed By: #### U MICRO, ERUR, PREGU ####[facility] [address] [place] [address]DrEric Norris Bacteria identified Cx Nom (U) INDICATED Normal [facility] Comment on above: Performed By: #### U MICRO, ERUR, PREGU ####[facility] [address] [place] [phone] Norris CAST NONE SEEN Normal NONE SEEN [facility] Comment on above: Performed By: #### U MICRO, ERUR, PREGU ####[facility] [address] [place] [phone] Norris Crystals LM Nom (Urine sed) NONE SEEN Normal NONE SEEN [facility] Comment on above: Performed By: #### U MICRO, ERUR, PREGU ####[facility] [address]eb[address] [place] [phone]. Jc Norris Epithelial cells LM Ql (Urine sed) FEW Abnormal NONE SEEN /RARE [facility] Comment on above: Performed By: #### U MICRO, ERUR, PREGU ####[facility] [address] [place] [phone]. Jc Norris MUCOUS TRACE Abnormal NONE SEEN [facility] Comment on above: Performed By: #### U MICRO, ERUR, PREGU ####[facility] [address] [place] [phone]. Jc Norris RBC NONE SEEN Abnormal 0-2 [facility] Comment on above: Performed By: #### U MICRO, ERUR, PREGU ####[facility] [address] [place] [phone]. Jc Norris WBC 10-20 Abnormal NONE SEEN [facility] Comment on above: Performed By: #### U MICRO, ERUR, PREGU ####[facility] [address] [place] [phone]. Jc Norris US PREG TVon 06-13-2022 US [...] NILDA HANDLEY Date: 2022-06-13 14:30 Normal [facility] PREG QUANT HCGon 06-02-2022 HCG QUANT 5289 mIU/mL Normal [facility] Comment on above: Performed By: #### C BC #### [facility] [address] [address] [address] Jc Norris HCG RANGE SEE BELOW Normal [facility] Comment on above: Result Comment: 5-50 0.2-1 WEEK 50-500 1-2 WEEKS 100-5,000 2-3 WEEKS 500-10,000 3-4 WEEKS 1,000-50,000 4-5 WEEKS 10,000-100,000 5-6 WEEKS 15,000-200,000 6-8 WEEKS 10,000-100,000 2-3 MONTHS Performed By: #### C BC #### [facility] [address] [address] [address] Jc Norris PREG QUANT HCGon 05-31-2022 HCG QUANT 3671 mIU/mL Normal [facility] Comment on above: Performed By: #### C MP, LIPID, TSH, T7, BNP #### [facility] [address] [address] [address] Jc Norris HCG RANGE SEE BELOW Normal [facility] Comment on above: Result Comment: 5-50 0.2-1 WEEK 50-500 1-2 WEEKS 100-5,000 2-3 WEEKS 500-10,000 3-4 WEEKS 1,000-50,000 4-5 WEEKS 10,000-100,000 5-6 WEEKS 15,000-200,000 6-8 WEEKS 10,000-100,000 2-3 MONTHS Performed By: #### C MP, LIPID, TSH, T7, BNP #### [facility] [address] [address] [address] Jc Norris PREG QUANT HCGon 05-29-2022 HCG QUANT 1965 mIU/mL Normal [facility] Comment on above: Performed By: #### P REGQNT ####[facility] [address] [address]Dr. Jc Norris HCG RANGE SEE BELOW Normal [facility] Comment on above: Result Comment: 5-50 0.2-1 WEEK 50-500 1-2 WEEKS 100-5,000 2-3 WEEKS 500-10,000 3-4 WEEKS 1,000-50,000 4-5 WEEKS 10,000-100,000 5-6 WEEKS 15,000-200,000 6-8 WEEKS 10,000-100,000 2-3 MONTHS Performed By: #### P REGQNT ####[facility] [address] [id number]. Jc Norris US PELVIS AND TRANSVAGon US [...] NILDA HANDLEY Date: 2022-05-04 14:31 Normal [facility] CULTURE URINEon 04-07-2022 CULTURE URINE Isolate [...] Trimethoprim/Sulfamet hoxazole >=320 R F Normal [facility] Comment on above: Performed By: #### U RCX ####[facility] [address] [id number]. Jc Norris ER URINE PROFILEon 3 Bilirubin Ql (U) Negative Normal NEGATIVE [facility] Comment on above: Performed By: #### C MP, LIPID, TSH, T7, BNP #### [facility] [address] [address] [address] Jc Norris Clarity (U) SL CLOUDY Abnormal CLEAR [facility] Comment on above: Performed By: #### C MP, LIPID, TSH, T7, BNP #### [facility] [address] [address] [address] Jc Norris Color (U) LT. YELLOW Normal YELLOW [facility] Comment on above: Performed By: #### C MP, LIPID, TSH, T7, BNP #### [facility] [address] [address] [address] Jc Norris ERUAHValerie A micrscopic examination will be performed if indicated. Normal [facility] Comment on above: Performed By: #### C MP, LIPID, TSH, T7, BNP #### [facility] [address] [place] [address] Dr. Jc Norris Glucose Ql (U) Negative Normal NEGATIVE [facility] Comment on above: Performed By: #### C MP, LIPID, TSH, T7, BNP #### [facility] [address] [place] [address] Dr. Jc Norris Hemoglobin Ql (U) MODERATE Abnormal NEGATIVE [facility] Comment on above: Performed By: #### C MP, LIPID, TSH, T7, BNP #### [facility] [address] [place] [address] Dr. Jc Norris Ketones Ql (U) Negative Normal NEGATIVE [facility] Comment on above: Performed By: #### C MP, LIPID, TSH, T7, BNP #### [facility] [address] [address] [address] Jc Norris LEUKOCYTES SMALL Abnormal NEGATIVE [facility] Comment on above: Performed By: #### C MP, LIPID, TSH, T7, BNP #### [facility] [address] [address] [address] Jc Norris Nitrite Ql (U) Positive Abnormal NEGATIVE [facility] Comment on above: Performed By: #### C MP, LIPID, TSH, T7, BNP #### [facility] [address] [address] [address] Jc Norris pH (U) 5.5 [pH] Normal 5-9 [facility] Comment on above: Performed By: #### C MP, LIPID, TSH, T7, BNP #### [facility] [address] [place] [address] Dr. Jc Norris SPEC GRAVITY 1.025 Normal 1.005-<=1.02 5 [facility] Comment on above: Performed By: #### C MP, LIPID, TSH, T7, BNP #### [facility] [address] [place] [address] Dr. Jc Norris UA PROTEIN Negative Normal NEGATIVE/ TRACE [facility] Comment on above: Performed By: #### C MP, LIPID, TSH, T7, BNP #### [facility] [address] [place] [address] Dr. Jc Norris UR MICRO IND INDICATED Normal [facility] Comment on above: Performed By: #### C MP, LIPID, TSH, T7, BNP #### [facility] [address] [place] [address] Dr. Jc Norris Urobilinogen Qn (U) 0.2 {Diamond'U}/dL Normal 0.2 - 1. 0 [facility] Comment on above: Performed By: #### C MP, LIPID, TSH, T7, BNP #### [facility] [address] [place] [address] Dr. Jc Norris URon 04-05-2022 , QUAL Negative Normal NEGATIVE [facility] Comment on above: Performed By: #### C MP, LIPID, TSH, T7, BNP #### [facility] [address] [place] [address] Dr. Jc Norris URINE MICROSCOPIC ONLYon BACTERIA MODERATE Abnormal NONE SEEN [facility] Comment on above: Performed By: #### C MP, LIPID, TSH, T7, BNP #### [facility] [address] [place] [address] Dr. Jc Norris Bacteria identified Cx Nom (U) INDICATED Normal [facility] Comment on above: Performed By: #### C MP, LIPID, TSH, T7, BNP #### [facility] [address] [place] [address] Dr. Jc Norris CAST NONE SEEN Normal NONE SEEN [facility] Comment on above: Performed By: #### C MP, LIPID, TSH, T7, BNP #### [facility] [address] [address] [address] Jc Norris Crystals LM Nom (Urine sed) NONE SEEN Normal NONE SEEN [facility] Comment on above: Performed By: #### C MP, LIPID, TSH, T7, BNP #### [facility] [address] [place] [address] Dr. Jc Norris Epithelial cells LM Ql (Urine sed) FEW Abnormal NONE SEEN /RARE [facility] Comment on above: Performed By: #### C MP, LIPID, TSH, T7, BNP #### [facility] [address] [place] [address] Dr. Jc Norris MUCOUS TRACE Abnormal NONE SEEN [facility] Comment on above: Performed By: #### C MP, LIPID, TSH, T7, BNP #### [facility] [address] [place] [address] Dr. Jc Norris RBC 50-75 Abnormal 0-2 [facility] Comment on above: Performed By: #### C MP, LIPID, TSH, T7, BNP #### [facility] [address] [place] [address] Dr. Jc Norris WBC 75-100 Abnormal NONE SEEN [facility] Comment on above: Performed By: #### C MP, LIPID, TSH, T7, BNP #### [facility] [address] [place] [address] Dr. Jc Norris MRI LSPINE WO CONon 03-07-19 23 MRI [place]SPINE WO CON [place]AM[place] HISTORY: Lumbago with sciatica COMPARISON: [...] stenosis. IMPRESSION: Normal exam Electronically authenticated by: NLIDA HANDLEY Date: 2022-03-07 06:17 Normal [facility] CARDIAC KERI 3-6on 2 CK [Catalytic activity/Vol] 64 U/L Normal 26-192 [facility] Comment on above: Performed By: #### C MP, LIPID, TSH, T7, BNP #### [facility] [address] [place] [address] Dr. Jc Norris CK.MB [Mass/Vol] 0.81 ng/mL Normal <=3.60 [facility] Comment on above: Performed By: #### C MP, LIPID, TSH, T7, BNP #### [facility] [address] [place] [address] Dr. Jc Norris HSTROP 4.3 pg/mL Normal 4.0-51.3 [facility] Comment on above: Result Comment: CUT- OFF POINTS HAVE BEEN ESTABLISHED BASED ON THE FOURTH UNIVERSAL DEFINITIONS OF MYOCARDIAL INFARCTION. THE UPPER REFERENCE LIMIT (URL) OF TROPONIN, DEFINED THE 99TH PERCENTILE OF cTnI DISTRIBUTION IN A REFERENCE POPULATION, HAS BEEN CONFIRMED THE DECISION THRESHOLD FOR [place] DIAGNOSIS. Performed By: #### C MP, LIPID, TSH, T7, BNP #### [facility] [address] [address] [address] Jc Norris CARDIAC KERI ADMITon 022 CK [Catalytic activity/Vol] 80 U/L Normal 26-192 [facility] Comment on above: Performed By: #### C BC #### [facility] [address] [address] [address] Jc Norris CK.MB [Mass/Vol] 0.89 ng/mL Normal <=3.60 [facility] Comment on above: Performed By: #### C BC #### [facility] [address] [place] [address] Dr. Jc Norris HSTROP 4.3 pg/mL Normal 4.0-51.3 [facility] Comment on above: Result Comment: CUT- OFF POINTS HAVE BEEN ESTABLISHED BASED ON THE FOURTH UNIVERSAL DEFINITIONS OF MYOCARDIAL INFARCTION. THE UPPER REFERENCE LIMIT (URL) OF TROPONIN, DEFINED THE 99TH PERCENTILE OF cTnI DISTRIBUTION IN A REFERENCE POPULATION, HAS BEEN CONFIRMED THE DECISION THRESHOLD FOR [place] DIAGNOSIS. Performed By: #### C BC #### [facility] [address] [place] [address] Dr. Jc Norris ANITHA 21 ng/mL Normal 9-82 [facility] Comment on above: Performed By: #### C BC #### [facility] [address] [place] [address] Dr. Jc Norris CBC AUTO DIFFon 12-26-2021 BASO # 0.1 103/ul Normal 0.0-0.1 [facility] Comment on above: Performed By: #### C BC #### [facility] [address] [place] [address] Dr. Jc Norris Basophils/100 WBC (Bld) 0.5 % Normal 0.2-2.0 [facility] Comment on above: Performed By: #### C BC #### [facility] [address] [place] [address] Dr. Jc Norris EO # 0.3 103/ul Normal 0.0-0.7 [facility] Comment on above: Performed By: #### C BC #### [facility] [address] [place] [address] Dr. Jc Norris Eosinophils/100 WBC (Bld) 2.9 % Normal 0.9-7.0 [facility] Comment on above: Performed By: #### C BC #### [facility] [address] [place] [address] Dr. Jc Norris Erythrocyte distribution width (RBC) [Ratio] 12.7 % Normal 11.0-15.0 [facility] Comment on above: Performed By: #### C BC #### [facility] [address] [place] [address] Dr. Jc Norris Hematocrit (Bld) [Volume fraction] 40.1 % Normal 36.0-48.0 [facility] Comment on above: Performed By: #### C BC #### [facility] [address] [place] [address] Dr. Jc Norris Hemoglobin (Bld) [Mass/Vol] 13.4 g/dL Normal 12.0-16.0 [facility] Comment on above: Performed By: #### C BC #### [facility] [address] [place] [address] Dr. Jc Norris IG # 0.03 10e3/ul Normal 0.00-0.03 [facility] Comment on above: Performed By: #### C BC #### [facility] [address] [place] [address] Dr. Jc Norris IG % 0.3 % Normal 0.0-0.5 [facility] Comment on above: Performed By: #### C BC #### [facility] [address] [place] [address] Dr. Jc Norris LYMPH # 3.4 103/ul Normal 1.2-3.8 [facility] Comment on above: Performed By: #### C BC #### [facility] [address] [place] [address] Dr. Jc Norris Lymphocytes/100 WBC (Bld) 35.9 % Normal 20.5-60.0 [facility] Comment on above: Performed By: #### C BC #### [facility] [address] [place] [address] Dr. Jc Norris MANUAL DIFF REQ NO Normal [facility] Comment on above: Performed By: #### C BC #### [facility] [address] [place] [address] Dr. Jc Norris MCH (RBC) [Entitic mass] 28.8 pg Normal 26.7-34.0 [facility] Comment on above: Performed By: #### C BC #### [facility] [address] [address] [address] Jc Norris MCHC (RBC) [Mass/Vol] 33.4 g/dL Normal 29.9-35.2 [facility] Comment on above: Performed By: #### C BC #### [facility] [address] [place] [address] Dr. Jc Norris MCV (RBC) [Entitic vol] 86.1 fL Normal 81.0-99.0 [facility] Comment on above: Performed By: #### C BC #### [facility] [address] [place] [address] Dr. Jc Norris MONO # 0.9 103/ul Critically high 0.3-0.8 [facility] Comment on above: Performed By: #### C BC #### [facility] [address] [place] [address] Dr. Jc Norris Monocytes/100 WBC (Bld) 9.1 % Normal 1.7-12.0 [facility] Comment on above: Performed By: #### C BC #### [facility] [address] [place] [address] Dr. Jc Norris NEUT # 4.8 103/ul Normal 1.4-6.5 [facility] Comment on above: Performed By: #### C BC #### [facility] [address] [place] [address] Dr. Jc Norris Neutrophils/100 WBC (Bld) 51.3 % Normal 43.0-75.0 [facility] Comment on above: Performed By: #### C BC #### [facility] [address] [place] [address] Dr. Jc Norris Platelet mean volume (Bld) [Entitic vol] 10.9 fL Normal 9.5-13.5 [facility] Comment on above: Performed By: #### C BC #### [facility] [address] [place] [address] Dr. Jc Norris PLT 256 103/ul Normal 150-450 [facility] Comment on above: Performed By: #### C BC #### [facility] [address] [place] [address] Dr. Jc Norris RBC 4.66 106/ul Normal 4.20-5.40 [facility] Comment on above: Performed By: #### C BC #### [facility] [address] [address] [address] Jc Norris WBC 9.4 103/ul Normal 4.0-11.0 [facility] Comment on above: Performed By: #### C BC #### [facility] [address] [place] [address] Dr. Jc Norris D-DIMERon 12-26-2021 D-DIMER 0.22 mg/L FEU Normal <=0.59 [facility] Comment on above: Performed By: #### C BC #### [facility] [address] [place] [address] Dr. Jc Norris D-DIMER COMMENTS SEE BELOW Normal [facility] Comment on above: Result Comment: Incr [...] hospitalization. Performed By: #### C BC #### [facility] [address] [place] [address] Dr. Jc Norris PROF CHEM 8 (BAS METB)on Anion gap [Moles/Vol] 8.7 mmol/L Normal [facility] Comment on above: Performed By: #### C BC #### [facility] [address] [place] [address] Dr. Jc Norris Calcium [Mass/Vol] 9.2 mg/dL Normal 8.5-10.1 [facility] Comment on above: Performed By: #### C BC #### [facility] [address] [place] [address] Dr. Jc Norris Chloride [Moles/Vol] 105 mmol/L Normal 98-107 [facility] Comment on above: Performed By: #### C BC #### [facility] [address] [address] [address] Jc Norris CO2 [Moles/Vol] 27.9 mmol/L Normal 21.0-32.0 [facility] Comment on above: Performed By: #### C BC #### [facility] [address] [address] [address] Jc Norris Creatinine [Mass/Vol] 0.67 mg/dL Normal 0.55-1.02 [facility] Comment on above: Performed By: #### C BC #### [facility] [address] [address] [address] Jc Norris EGFR-AF UKRAINIAN >60 Normal >=60 [facility] Comment on above: Performed By: #### C BC #### [facility] [address] [place] [address] Dr. Jc Norris EGFR-NON AF UKRAINIAN >60 Normal >=60 [facility] Comment on above: Performed By: #### C BC #### [facility] [address] [place] [address] Dr. Jc Norris Glucose [Mass/Vol] 86 mg/dL Normal 74-106 [facility] Comment on above: Performed By: #### C BC #### [facility] [address] [place] [address] Dr. Jc Norris Potassium [Moles/Vol] 3.6 mmol/L Normal 3.5-5.1 [facility] Comment on above: Performed By: #### C BC #### [facility] [address] [address] [address] Jc Norris Sodium [Moles/Vol] 138 mmol/L Normal 136-145 [facility] Comment on above: Performed By: #### C BC #### [facility] [address] [place] [address] Dr. Jc Norris Urea nitrogen [Mass/Vol] 11.0 mg/dL Normal 7.0-18.0 [facility] Comment on above: Performed By: #### C BC #### [facility] [address] [place], [place] [address] Dr. Jc Norris Urea nitrogen/Creatinine [Mass ratio] 16.4 mg/mg Normal [facility] Comment on above: Performed By: #### C BC #### [facility] [address] [place], [place] [address] Dr. Jc Norris XR CHEST 2 Von [...] by: ALEK MONTELONGO Date: 2021-12-25 23:54 Normal [facility] ECHOCARDIO M/2D COMPLETEon 1 ECHOCARDIO M/2D COMPLETE Patient: MARIANGEL CORTES. Exam Date: 12/06/2021 : 1995 Gender:F Ordering : DR LONA ESTRADA . Admission #: [id number] Family : Order #: [id number] CLICK HERE TO VIEW EXAM ECHOCARDIOGRAM REPORT [...] M.D. on 12/11/2021 at 15:55 Normal [facility] BNPon 11-24-2021 Natriuretic peptide B (Bld) [Mass/Vol] 7.0 pg/mL Normal <=450.0 [facility] Comment on above: Performed By: #### C MP, LIPID, TSH, T7, BNP #### [facility] [address] [address] [address] Jc Norris CBC AUTO DIFFon 11-24-2021 BASO # 0.0 103/ul Normal 0.0-0.1 [facility] Comment on above: Performed By: #### C BC ####[facility] [address] [address]DrEric Norris Basophils/100 WBC (Bld) 0.3 % Normal 0.2-2.0 [facility] Comment on above: Performed By: #### C BC ####[facility] [address] [address]DrEric Norris EO # 0.1 103/ul Normal 0.0-0.7 [facility] Comment on above: Performed By: #### C BC ####[facility] [address] [address]Dr. Jc Norris Eosinophils/100 WBC (Bld) 2.1 % Normal 0.9-7.0 [facility] Comment on above: Performed By: #### C BC ####[facility] [address] [address]Dr. Jc Norris Erythrocyte distribution width (RBC) [Ratio] 12.9 % Normal 11.0-15.0 [facility] Comment on above: Performed By: #### C BC ####[facility] [address] [address]Dr. Jc Norris Hematocrit (Bld) [Volume fraction] 42.3 % Normal 36.0-48.0 [facility] Comment on above: Performed By: #### C BC ####[facility] [address] [place], [place] [address]Dr. Jc Norris Hemoglobin (Bld) [Mass/Vol] 13.6 g/dL Normal 12.0-16.0 [facility] Comment on above: Performed By: #### C BC ####[facility] [address] [place], [place] [address]Dr. Jc Norris IG # 0.03 10e3/ul Normal 0.00-0.03 [facility] Comment on above: Performed By: #### C BC ####[facility] [address] [place], [place] [address]Dr. Jc Norris IG % 0.5 % Normal 0.0-0.5 [facility] Comment on above: Performed By: #### C BC ####[facility] [address] [place], [place] [address]Dr. Jc Norris LYMPH # 1.7 103/ul Normal 1.2-3.8 [facility] Comment on above: Performed By: #### C BC ####[facility] [address] [place], [place] [address]Dr. Jc Jr Lymphocytes/100 WBC (Bld) 29.9 % Normal 20.5-60.0 [facility] Comment on above: Performed By: #### C BC ####[facility] [address] [place], [place] [address]Dr. Kathleenkendall Norris MANUAL DIFF REQ NO Normal [facility] Comment on above: Performed By: #### C BC ####[facility] [address] [place], [place] [address]Dr. Jc Norris MCH (RBC) [Entitic mass] 28.7 pg Normal 26.7-34.0 [facility] Comment on above: Performed By: #### C BC ####[facility] [address] [address]Dr. Jc Norris MCHC (RBC) [Mass/Vol] 32.2 g/dL Normal 29.9-35.2 [facility] Comment on above: Performed By: #### C BC ####[facility] [address] [place], [place] [address]Dr. Jc Jr MCV (RBC) [Entitic vol] 89.2 fL Normal 81.0-99.0 [facility] Comment on above: Performed By: #### C BC ####[facility] [address] [place], [place] [address]Dr. Jc Norris MONO # 0.4 103/ul Normal 0.3-0.8 [facility] Comment on above: Performed By: #### C BC ####[facility] [address] [place], [place] [address]Dr. Jc Norris Monocytes/100 WBC (Bld) 7.4 % Normal 1.7-12.0 [facility] Comment on above: Performed By: #### C BC ####[facility] [address] [place], [place] [address]Dr. Jc Norris NEUT # 3.5 103/ul Normal 1.4-6.5 [facility] Comment on above: Performed By: #### C BC ####[facility] [address] [place], [place] [address]Dr. Jc Norris Neutrophils/100 WBC (Bld) 59.8 % Normal 43.0-75.0 [facility] Comment on above: Performed By: #### C BC ####[facility] [address] [place], [place] [address]Dr. Kathleenkendall Jr Platelet mean volume (Bld) [Entitic vol] 10.3 fL Normal 9.5-13.5 [facility] Comment on above: Performed By: #### C BC ####[facility] [address] [place] [address] Jc Norris PLT 241 103/ul Normal 150-450 [facility] Comment on above: Performed By: #### C BC ####[facility] [address] [address]Dr. Jc Norris RBC 4.74 106/ul Normal 4.20-5.40 [facility] Comment on above: Performed By: #### C BC ####[facility] [address] [id number]. Jc Norris WBC 5.8 103/ul Normal 4.0-11.0 [facility] Comment on above: Performed By: #### C BC ####[facility] [address] [address]DrEric Norris FREE THYROXINE INDEX T7on FTI 2.00 Normal 1.30-4.50 [facility] Comment on above: Performed By: #### C MP, LIPID, TSH, T7, BNP #### [facility] [address] [address] [address] Jc Norris T3U 29.0 % Critically low 30.0-39.0 [facility] Comment on above: Performed By: #### C MP, LIPID, TSH, T7, BNP #### [facility] [address] [address] [address] Jc Norris T4 [Mass/Vol] 6.90 ug/dL Normal 4.80-13.90 [facility] Comment on above: Performed By: #### C MP, LIPID, TSH, T7, BNP #### [facility] [address] [address] [address] Jc Norris GLYCOHEMOGLOBIN A1Con 2021 ADA RECOMMENDATION SEE BELOW Normal [facility] Comment on above: Result Comment: ADA RECOMMENDED LIMIT 4.0 - 6.0 ADA THERAPEUTIC TARGET < 7.0 ACTION SUGGESTED > 7.0 Performed By: #### A 1C ####[facility] [address] [address]Dr. Jc Norris Glucose [Mass/Vol] 103 mg/dL Normal [facility] Comment on above: Performed By: #### A 1C ####[facility] [address] [place], [place] [address]DnDr. Jc Norris HbA1c (Bld) [Mass fraction] 5.2 % Normal 4.5-6.2 [facility] Comment on above: Performed By: #### A 1C ####[facility] [address] [place], [place] [address]KuDr. Jc Norris IRONon 11-24-2021 Iron [Mass/Vol] 45.0 ug/dL Critically low 50.0-170.0 [facility] Comment on above: Performed By: #### I KINA ####[facility] [address] [id number] Norris LIPID PROFILEon 11-24-2021 CHOL-HDL RATIO NORM SEE BELOW Normal [facility] Comment on above: Result Comment: 3.3 - 4.4 LOW RISK 4.4 - 7.1 AVERAGE RISK 7.1 - 11.0 MODERATE RISK >11.0 HIGH RISK Performed By: #### C MP, LIPID, TSH, T7, BNP #### [facility] [address] [address] [address] Jc Norris Cholesterol [Mass/Vol] 169 mg/dL Normal <=200 [facility] Comment on above: Performed By: #### C MP, LIPID, TSH, T7, BNP #### [facility] [address] [address] [address] Jc Norris Cholesterol in HDL [Mass/Vol] 44 mg/dL Normal 40-60 [facility] Comment on above: Performed By: #### C MP, LIPID, TSH, T7, BNP #### [facility] [address] [place], [place] [address] Dr. Jc Norris Cholesterol in LDL [Mass/Vol] 106.2 mg/dL Normal [facility] Comment on above: Performed By: #### C MP, LIPID, TSH, T7, BNP #### [facility] [address] [place], [place] [address] Dr. Jc Norris Cholesterol.total/Chol esterol in HDL [Mass ratio] 3.8 {ratio} Normal [facility] Comment on above: Performed By: #### C MP, LIPID, TSH, T7, BNP #### [facility] [address] [address] [address] Jc Norris HDL NORMAL > or = 60 mg/dl - LO W CARDIOVASCULAR RISK <40 mg/dl - HIGH CARDIOVASCULAR RISK Normal [facility] Comment on above: Performed By: #### C MP, LIPID, TSH, T7, BNP #### [facility] [address] [address] [address] Jc Norris LDL CALC NORMAL SEE BELOW Normal [facility] Comment on above: Result Comment: <100 mg/dl OPTIMAL 100 - 129 mg/dl NEAR OR ABOVE OPTIMAL 130 - 159 mg/dl BORDERLINE HIGH 160 - 189 mg/dl HIGH >190 mg/dl VERY HIGH Performed By: #### C MP, LIPID, TSH, T7, BNP #### [facility] [address] [place] [address] Dr. Jc Norris Triglyceride [Mass/Vol] 94 mg/dL Normal <=150 [facility] Comment on above: Performed By: #### C MP, LIPID, TSH, T7, BNP #### [facility] [address] [address] [address] Jc Norris VLDL CALC 18.8 mg/dL Normal [facility] Comment on above: Performed By: #### C MP, LIPID, TSH, T7, BNP #### [facility] [address] [place] [address] Dr. Jc Norris PROF 14(COMP METB)on 022 Albumin [Mass/Vol] 3.8 g/dL Normal 3.4-5.0 [facility] Comment on above: Performed By: #### C MP, LIPID, TSH, T7, BNP #### [facility] [address] [place] [address] Dr. Jc Norris Albumin/Globulin [Mass ratio] 1.1 {ratio} Normal [facility] Comment on above: Performed By: #### C MP, LIPID, TSH, T7, BNP #### [facility] [address] [place] [address] Dr. Jc Norris ALP [Catalytic activity/Vol] 109 U/L Normal 46-116 [facility] Comment on above: Performed By: #### C MP, LIPID, TSH, T7, BNP #### [facility] [address] [address] [address] Jc Norris ALT [Catalytic activity/Vol] 20 U/L Normal 14-59 [facility] Comment on above: Performed By: #### C MP, LIPID, TSH, T7, BNP #### [facility] [address] [place] [address] Dr. Jc Norris Anion gap [Moles/Vol] 8.3 mmol/L Normal [facility] Comment on above: Performed By: #### C MP, LIPID, TSH, T7, BNP #### [facility] [address] [place] [address] Dr. Jc Norris AST [Catalytic activity/Vol] 12 U/L Critically low 15-37 [facility] Comment on above: Performed By: #### C MP, LIPID, TSH, T7, BNP #### [facility] [address] [place] [address] Dr. Jc Norris Bilirubin [Mass/Vol] 0.3 mg/dL Normal 0.2-1.0 [facility] Comment on above: Performed By: #### C MP, LIPID, TSH, T7, BNP #### [facility] [address] [place] [address] Dr. Jc Norris Calcium [Mass/Vol] 8.9 mg/dL Normal 8.5-10.1 [facility] Comment on above: Performed By: #### C MP, LIPID, TSH, T7, BNP #### [facility] [address] [place] [address] Dr. Jc Norris Chloride [Moles/Vol] 105 mmol/L Normal 98-107 [facility] Comment on above: Performed By: #### C MP, LIPID, TSH, T7, BNP #### [facility] [address] [place] [address] Dr. Jc Norris CO2 [Moles/Vol] 29.8 mmol/L Normal 21.0-32.0 [facility] Comment on above: Performed By: #### C MP, LIPID, TSH, T7, BNP #### [facility] [address] [place] [address] Dr. Jc Norris Creatinine [Mass/Vol] 0.67 mg/dL Normal 0.55-1.02 [facility] Comment on above: Performed By: #### C MP, LIPID, TSH, T7, BNP #### [facility] [address] [place] [address] Dr. Jc Norris EGFR-AF UKRAINIAN >60 Normal >=60 [facility] Comment on above: Performed By: #### C MP, LIPID, TSH, T7, BNP #### [facility] [address] [place] [address] Dr. Jc Norris EGFR-NON AF UKRAINIAN >60 Normal >=60 [facility] Comment on above: Performed By: #### C MP, LIPID, TSH, T7, BNP #### [facility] [address] [place] [address] Dr. Jc Norris Globulin (S) [Mass/Vol] 3.5 g/dL Normal [facility] Comment on above: Performed By: #### C MP, LIPID, TSH, T7, BNP #### [facility] [address] [place] [address] Dr. Jc Norris Glucose [Mass/Vol] 107 mg/dL Critically high 74-106 [facility] Comment on above: Performed By: #### C MP, LIPID, TSH, T7, BNP #### [facility] [address] [place] [address] Dr. Jc Norris Potassium [Moles/Vol] 4.1 mmol/L Normal 3.5-5.1 [facility] Comment on above: Performed By: #### C MP, LIPID, TSH, T7, BNP #### [facility] [address] [place] [address] Dr. Jc Norris Protein [Mass/Vol] 7.3 g/dL Normal 6.4-8.2 [facility] Comment on above: Performed By: #### C MP, LIPID, TSH, T7, BNP #### [facility] [address] [place] [address] Dr. Jc Norris Sodium [Moles/Vol] 139 mmol/L Normal 136-145 [facility] Comment on above: Performed By: #### C MP, LIPID, TSH, T7, BNP #### [facility] [address] [place] [address] Dr. Jc Norris Urea nitrogen [Mass/Vol] 11.0 mg/dL Normal 7.0-18.0 [facility] Comment on above: Performed By: #### C MP, LIPID, TSH, T7, BNP #### [facility] [address] [place] [address] Dr. Jc Norris Urea nitrogen/Creatinine [Mass ratio] 16.4 mg/mg Normal [facility] Comment on above: Performed By: #### C MP, LIPID, TSH, T7, BNP #### [facility] [address] [place] [address] Dr. Jc Norris TSHon 11-24-2021 TSH 1.465 uIU/mL Normal 0.358-3.740 [facility] Comment on above: Performed By: #### C MP, LIPID, TSH, T7, BNP #### [facility] [address] [place] [address] Dr. Jc Norris T4 [facility] 10-31-2021 T4 [Mass/Vol] 5.8 ug/dL Normal 4.5-12.0 [facility] Comment on above: Performed By: #### C BC #### [facility] [address] [place] [address] Dr. Jc Norris CBC AUTO DIFFon 10-30-2021 BASO # 0.1 103/ul Normal 0.0-0.1 [facility] Comment on above: Performed By: #### C BC #### [facility] [address] [place] [address] Dr. Jc Norris Basophils/100 WBC (Bld) 0.4 % Normal 0.2-2.0 [facility] Comment on above: Performed By: #### C BC #### [facility] [address] [place] [address] Dr. Jc Norris EO # 0.2 103/ul Normal 0.0-0.7 [facility] Comment on above: Performed By: #### C BC #### [facility] [address] [place] [address] Dr. Jc Norris Eosinophils/100 WBC (Bld) 1.4 % Normal 0.9-7.0 [facility] Comment on above: Performed By: #### C BC #### [facility] [address] [place] [address] Dr. Jc Norris Erythrocyte distribution width (RBC) [Ratio] 13.0 % Normal 11.0-15.0 [facility] Comment on above: Performed By: #### C BC #### [facility] [address] [place] [address] Dr. Jc Norris Hematocrit (Bld) [Volume fraction] 42.4 % Normal 36.0-48.0 [facility] Comment on above: Performed By: #### C BC #### [facility] [address] [place] [address] Dr. Jc Norris Hemoglobin (Bld) [Mass/Vol] 13.2 g/dL Normal 12.0-16.0 [facility] Comment on above: Performed By: #### C BC #### [facility] [address] [place] [address] Dr. Jc Norris IG # 0.18 10e3/ul Critically high 0.00-0.03 [facility] Comment on above: Performed By: #### C BC #### [facility] [address] [place] [address] Dr. Jc Norris IG % 1.4 % Critically high 0.0-0.5 [facility] Comment on above: Performed By: #### C BC #### [facility] [address] [place] [address] Dr. Jc Norris LYMPH # 4.2 103/ul Critically high 1.2-3.8 [facility] Comment on above: Performed By: #### C BC #### [facility] [address] [place] [address] Dr. Jc Norris Lymphocytes/100 WBC (Bld) 31.5 % Normal 20.5-60.0 [facility] Comment on above: Performed By: #### C BC #### [facility] [address] [place] [address] Dr. Jc Norris MANUAL DIFF REQ NO Normal [facility] Comment on above: Performed By: #### C BC #### [facility] [address] [place] [address] Dr. Jc Norris MCH (RBC) [Entitic mass] 27.9 pg Normal 26.7-34.0 [facility] Comment on above: Performed By: #### C BC #### [facility] [address] [place] [address] Dr. Jc Norris MCHC (RBC) [Mass/Vol] 31.1 g/dL Normal 29.9-35.2 [facility] Comment on above: Performed By: #### C BC #### [facility] [address] [place] [address] Dr. Jc Norris MCV (RBC) [Entitic vol] 89.6 fL Normal 81.0-99.0 [facility] Comment on above: Performed By: #### C BC #### [facility] [address] [place] [address] Dr. Jc Norris MONO # 1.3 103/ul Critically high 0.3-0.8 [facility] Comment on above: Performed By: #### C BC #### [facility] [address] [place] [address] Dr. Jc Norris Monocytes/100 WBC (Bld) 9.9 % Normal 1.7-12.0 [facility] Comment on above: Performed By: #### C BC #### [facility] [address] [place] [address] Dr. Jc Norris NEUT # 7.4 103/ul Critically high 1.4-6.5 [facility] Comment on above: Performed By: #### C BC #### [facility] [address] [place] [address] Dr. Jc Norris Neutrophils/100 WBC (Bld) 55.4 % Normal 43.0-75.0 [facility] Comment on above: Performed By: #### C BC #### [facility] [address] [place] [address] Dr. Jc Norris Platelet mean volume (Bld) [Entitic vol] 10.2 fL Normal 9.5-13.5 [facility] Comment on above: Performed By: #### C BC #### [facility] [address] [place] [address] Dr. Jc Norris PLT 265 103/ul Normal 150-450 [facility] Comment on above: Performed By: #### C BC #### [facility] [address] [place] [address] Dr. Jc Norris RBC 4.73 106/ul Normal 4.20-5.40 [facility] Comment on above: Performed By: #### C BC #### [facility] [address] [place] [address] Dr. Jc Norris WBC 13.3 103/ul Critically high 4.0-11.0 [facility] Comment on above: Performed By: #### C BC #### [facility] [address] [place] [address] Dr. Jc Norris FREE T3on 10-30-2021 FREE T3 2.18 pg/mlL Normal 2.18-3.98 [facility] Comment on above: Performed By: #### C MP, LIPID, TSH, T7, BNP #### [facility] [address] [place] [address] Dr. Jc Norris PROF 14(COMP METB)on 022 Albumin [Mass/Vol] 3.6 g/dL Normal 3.4-5.0 [facility] Comment on above: Performed By: #### C MP, LIPID, TSH, T7, BNP #### [facility] [address] [place] [address] Dr. Jc Norris Albumin/Globulin [Mass ratio] 1.1 {ratio} Normal [facility] Comment on above: Performed By: #### C MP, LIPID, TSH, T7, BNP #### [facility] [address] [place] [address] Dr. Jc Norris ALP [Catalytic activity/Vol] 93 U/L Normal 46-116 [facility] Comment on above: Performed By: #### C MP, LIPID, TSH, T7, BNP #### [facility] [address] [place] [address] Dr. Jc Norris ALT [Catalytic activity/Vol] 22 U/L Normal 14-59 [facility] Comment on above: Performed By: #### C MP, LIPID, TSH, T7, BNP #### [facility] [address] [place] [address] Dr. Jc Norris Anion gap [Moles/Vol] 9.4 mmol/L Normal [facility] Comment on above: Performed By: #### C MP, LIPID, TSH, T7, BNP #### [facility] [address] [place] [address] Dr. Jc Norris AST [Catalytic activity/Vol] 13 U/L Critically low 15-37 [facility] Comment on above: Performed By: #### C MP, LIPID, TSH, T7, BNP #### [facility] [address] [place] [address] Dr. Jc Norris Bilirubin [Mass/Vol] 0.3 mg/dL Normal 0.2-1.0 [facility] Comment on above: Performed By: #### C MP, LIPID, TSH, T7, BNP #### [facility] [address] [place] [address] Dr. Jc Norris Calcium [Mass/Vol] 9.0 mg/dL Normal 8.5-10.1 [facility] Comment on above: Performed By: #### C MP, LIPID, TSH, T7, BNP #### [facility] [address] [place] [address] Dr. Jc Norris Chloride [Moles/Vol] 102 mmol/L Normal 98-107 [facility] Comment on above: Performed By: #### C MP, LIPID, TSH, T7, BNP #### [facility] [address] [place] [address] Dr. Jc Norris CO2 [Moles/Vol] 32.4 mmol/L Critically high 21.0-32.0 [facility] Comment on above: Performed By: #### C MP, LIPID, TSH, T7, BNP #### [facility] [address] [place] [address] Dr. Jc Norris Creatinine [Mass/Vol] 0.67 mg/dL Normal 0.55-1.02 [facility] Comment on above: Performed By: #### C MP, LIPID, TSH, T7, BNP #### [facility] [address] [place] [address] Dr. Jc Norris EGFR-AF UKRAINIAN >60 Normal >=60 [facility] Comment on above: Performed By: #### C MP, LIPID, TSH, T7, BNP #### [facility] [address] [place] [address] Dr. Jc Norris EGFR-NON AF UKRAINIAN >60 Normal >=60 [facility] Comment on above: Performed By: #### C MP, LIPID, TSH, T7, BNP #### [facility] [address] [place] [address] Dr. Jc Norris Globulin (S) [Mass/Vol] 3.2 g/dL Normal [facility] Comment on above: Performed By: #### C MP, LIPID, TSH, T7, BNP #### [facility] [address] [place] [address] Dr. Jc Norris Glucose [Mass/Vol] 94 mg/dL Normal 74-106 [facility] Comment on above: Performed By: #### C MP, LIPID, TSH, T7, BNP #### [facility] [address] [place] [address] Dr. Jc Norris Potassium [Moles/Vol] 3.7 mmol/L Normal 3.5-5.1 [facility] Comment on above: Performed By: #### C MP, LIPID, TSH, T7, BNP #### [facility] [address] [place] [address] Dr. Jc Norris Protein [Mass/Vol] 6.8 g/dL Normal 6.4-8.2 [facility] Comment on above: Performed By: #### C MP, LIPID, TSH, T7, BNP #### [facility] [address] [address] [address] Jc Norris Sodium [Moles/Vol] 140 mmol/L Normal 136-145 [facility] Comment on above: Performed By: #### C MP, LIPID, TSH, T7, BNP #### [facility] [address] [address] [address] Jc Norris Urea nitrogen [Mass/Vol] 16.0 mg/dL Normal 7.0-18.0 [facility] Comment on above: Performed By: #### C MP, LIPID, TSH, T7, BNP #### [facility] [address] [address] [address] Jc Norris Urea nitrogen/Creatinine [Mass ratio] 23.9 mg/mg Normal [facility] Comment on above: Performed By: #### C MP, LIPID, TSH, T7, BNP #### [facility] [address] [address] [address] Jc Norris TSHon 10-30-2021 TSH 2.046 uIU/mL Normal 0.358-3.740 [facility] Comment on above: Performed By: #### C MP, LIPID, TSH, T7, BNP #### [facility] [address] [address] [address] Jc Norris Body fluid albumin measureme nt (mass/volume)Ordered By: Anjali Hendrix on 10-06-2021 Albumin (Body fld) [Mass/Vol] 3.9 g/dL 3.2-5.5 [facility] Cholesterol [Mass/volume] in Serum or PlasmaOrdered By: Anjali Hendrix on 10-06-2021 Cholesterol [Mass/Vol] 179 mg/dL 140-200 [facility] Comment on above: Chol less than 200 m g/dl low risk Chol 201-239 mg/dl borderline risk Chol 240 mg/dl and greater high risk Cholesterol in LDL Calc [Mas s/Vol]Ordered By: Anjali Hendrix on 10-06-2021 Cholesterol in LDL [Mass/Vol] 106 mg/dL 0-100 [facility] Comment on above: LDL ATP III CLASSIFI CATION LDL less than 100 mg/dL Optimal LDL 100-129 mg/dL Near or above optimal LDL 130-159 mg/dL Borderline high LDL 160-189 mg/dL High LDL greater than 189 mg/dL Very high Cholesterol in VLDL Calc [Ma ss/Vol]Ordered By: Anjali Hendrix on 10-06-2021 Cholesterol in VLDL [Mass/Vol] 22 mg/dL [facility] Creatinine and Glomerular fi ltration rate.predicted panel (S/P/Bld)Ordered By: Anjali Hendrix on 10-06-2021 Creatinine [Mass/Vol] 0.66 mg/dL 0.44-1.03 [facility] Estimated glomerular filtrat ion rate (GFR) non- AmericanOrdered By: Anjali Hendrix on 10-06-2021 GFR/1.73 sq M.predicted among non-blacks MDRD (S/P/Bld) [Vol rate/Area] > 60 mL/Min [facility] Globulin Calc (S) [Mass/Vol] Ordered By: Anjali Hendrix on 10-06-2021 Globulin (S) [Mass/Vol] 2.7 g/dL [facility] Glucose mean value [Mass/vol ume] in Blood Estimated from glycated hemoglobinOrdered By: Anjali Hendrix on 10-06-2021 Average glucose Estimated from glycated hemoglobin (Bld) [Mass/Vol] 114 mg/dL [facility] Laboratory - Chemistry and C hemistry - challengeOrdered By: Anjali Hendrix on 10-06-2021 Glucose [Mass/Vol] 109 mg/dL 70-100 [facility] Comment on above: ADA recommended refe rence range Laboratory - Hematology and Cell countsOrdered By: Anjali Hendrix on 10-06-2021 HbA1c (Bld) [Mass fraction] 5.6 % 4.3-5.6 [facility] Comment on above: Increased risk for d iabetes: 5.7 - 6.4 diabetes: >6.4 glycemic control for adults with diabetes: <7.0 No Panel InformationOrdered By: Anjali Hendrix on 10-06-2021 Estimated GFR () > 60 mL/Min [facility] Comment on above: GFR estimated refere nce range: According to KDOQI guidelines, <60 ml/min/1.73m2 is sufficient to diagnose a patient with chronic kidney disease. Pharmacy Creatinine Clearance (Chem N/A [facility] Triglycerides Reflex 113 mg/dL 35-149 [facility] Comment on above: TRIG ATP III CLASSIF ICATION TRIG less than 150 mg/dL Normal TRIG 150-199 mg/dL Borderline high TRIG 200-500 mg/dL High TRIG greater than 500 mg/dL Very high Standard traceable to the Center for Disease Conrtrol and Prevention (CDC) test method. Protein [Mass/volume] in Ser um or PlasmaOrdered By: Anjali Hendrix on 10-06-2021 Protein [Mass/Vol] 6.6 g/dL 6.1-7.9 [facility] Serum or plasma alanine alcala otransferase measurement without P-5'-P (enzymatic activiOrdered By: Anjali Hendrix on 10-06-2021 ALT No additional P-5'-P [Catalytic activity/Vol] 19 U/L 10-60 [facility] Serum or plasma albumin/glob ulin mass ratioOrdered By: Anjali Hendrix on 10-06-2021 Albumin/Globulin [Mass ratio] 1.4 {ratio} [facility] Serum or plasma alkaline leslie sphatase measurement (enzymatic activity/volume)Ordered By: Anjali Hendrix on 10-06-2021 ALP [Catalytic activity/Vol] 76 U/L 32-92 [facility] Serum or plasma aspartate am inotransferase measurement (enzymatic activity/volume)Ordered By: Anjali Hendrix on 10-06-2021 AST [Catalytic activity/Vol] 22 U/L 10-42 [facility] Serum or plasma calcium joe urement (mass/volume)Ordered By: Anjali Hendrix on 10-06-2021 Calcium [Mass/Vol] 9.4 mg/dL 8.2-10.2 [facility] Serum or plasma chloride clem surement (moles/volume)Ordered By: Anjali Hendrix on 10-06-2021 Chloride [Moles/Vol] 101 mmol/L 95-114 [facility] Serum or plasma high density lipoprotein (HDL) cholesterol measurementOrdered By: Anjali Hendrix on 10-06-2021 Cholesterol in HDL [Mass/Vol] 50 mg/dL 35-85 [facility] Comment on above: HDL CHOL ATP-III CLA SSIFICATION Cardiovascular Risk HDL > or equal to 60 mg/dL LOW HDL < 40 mg/dL HIGH Serum or plasma potassium me asurement (moles/volume)Ordered By: Anjali Hendrix on 10-06-2021 Potassium [Moles/Vol] 3.9 mmol/L 3.5-5.1 [facility] Serum or plasma sodium measu rement (moles/volume)Ordered By: Anjali Hendrix on 10-06-2021 Sodium [Moles/Vol] 135 mmol/L 136-146 [facility] Serum or plasma total biliru bin measurement (mass/volume)Ordered By: Anjali Hendrix on 10-06-2021 Bilirubin [Mass/Vol] 0.4 mg/dL 0.3-1.2 [facility] Serum or plasma total carbon dioxide measurement (moles/volume)Ordered By: Anjali Hendrix on 10-06-2021 CO2 [Moles/Vol] 23.4 mmol/L 22.0-30.0 [facility] Serum or plasma total choles terol/high density lipoprotein (HDL) cholesterol mass ratOrdered By: Anjali Hendrix on 10-06-2021 Cholesterol.total/Chol esterol in HDL [Mass ratio] 3.6 {ratio} <5.0 [facility] Serum or plasma urea nitroge n measurement (mass/volume)Ordered By: Anjali Hendrix on 10-06-2021 Urea nitrogen [Mass/Vol] 11 mg/dL 11-10 [facility] Vital Signs Date Time Vital Sign Value Performing Clinician Facility 08-31-2024 08:40-0400 Body height 170.18 cm Lona Estrada MD Work Phone: [facility] 08-31-2024 08:40-0400 Body mass index (BMI) [Ratio] 36.3 kg/m2 Lona Estrada MD Work Phone: [facility] 08-31-2024 08:40-0400 Body weight 105.23 kg Lona Estrada MD Work Phone: [facility] 08-11-2024 08:03-0400 Body height 170.2 cm Hussein Hebert MD Work Phone: [facility] 08-11-2024 08:03-0400 Body mass index (BMI) [Ratio] 35.71 kg/m2 Hussein Hebert MD Work Phone: [facility] 08-11-2024 08:03-0400 Body weight 103.42 kg Husseni Hebert MD Work Phone: [facility] 08-11-2024 08:03-0400 Diastolic blood pressure 84 mm[Hg] Hussein Hebert MD Work Phone: [facility] 08-11-2024 08:03-0400 Heart rate 87 /min Hussein Hebert MD Work Phone: [facility] 08-11-2024 08:03-0400 Systolic blood pressure 120 mm[Hg] Hussein Hebert MD Work Phone: [facility] 08-26-2023 00:00-0400 Diastolic blood pressure 85 mm[Hg] Ced Dorys [facility] 08-26-2023 00:00-0400 Heart rate 76 /min Ced D[facility] 08-26-2023 00:00-0400 Hourly Rounding Ced Dorys [facility] 08-26-2023 00:00-0400 Mean blood pressure 96 mm[Hg] Ced Dorys [facility] 08-26-2023 00:00-0400 SaO2% (BldA) [Mass fraction] 100 % Ced D[facility] 08-26-2023 00:00-0400 Systolic blood pressure 119 mm[Hg] Ced Dorys [facility] 08-25-2023 23:30-0400 Blood Pressure Location Ced Dorys [facility] 08-25-2023 23:30-0400 Diastolic blood pressure 82 mm[Hg] Ced Dory[facility] 08-25-2023 23:30-0400 Heart rate 77 /min [facility]ed [facility] 08-25-2023 23:30-0400 Hourly Rounding Ced Dorys [facility] 08-25-2023 23:30-0400 Mean blood pressure 99 mm[Hg] Ced Dorys [facility] 08-25-2023 23:30-0400 SaO2% (BldA) [Mass fraction] 99 % Ced D[facility] 08-25-2023 23:30-0400 Systolic blood pressure 132 mm[Hg] Ced Dory[facility] 08-25-2023 22:30-0400 Diastolic blood pressure 96 mm[Hg] Ced Dory[facility] 08-25-2023 22:30-0400 Heart rate 73 /min [facility]ed [facility] 08-25-2023 22:30-0400 Hourly Rounding Ced Dorys [facility] 08-25-2023 22:30-0400 Mean blood pressure 107 mm[Hg] Ced Dorys [facility] 08-25-2023 22:30-0400 SaO2% (BldA) [Mass fraction] 99 % Ced Dory[facility] 08-25-2023 22:30-0400 Systolic blood pressure 128 mm[Hg] Ced Saul [facility] 08-25-2023 20:39-0400 Body temperature 98.42 [degF] Ced Saul [facility] 08-25-2023 20:39-0400 Heart rate 103 /min [facility]ed D[facility] 08-25-2023 20:39-0400 Respiratory rate 18 /min Ced D[facility] 10-23-2022 09:00-0400 Body height 170.18 cm Al Ball Other [facility] [employer] Other 10-23-2022 09:00-0400 Body mass index (BMI) [Ratio] 33.36 kg/m2 Al Ball Other [facility] [employer] Other 10-23-2022 09:00-0400 Body weight 96.[address] [facility] [employer] Other 10-23-2022 09:00-0400 Diastolic blood pressure 68 mm[Hg] Al Ball Other [facility] [employer] Other 10-23-2022 09:00-0400 Systolic blood pressure 105 mm[Hg] Al Ball Other [facility] [employer] Other 05-05-2021 11:45-0400 Body height 170.18 cm Eric Santana Other [employer] Other 05-05-2021 11:45-0400 Body mass index (BMI) [Ratio] 34.14 kg/m2 Eric Santana Other [facility] [employer] Other 05-05-2021 11:45-0400 Body weight 98.88 kg Eric Santana Other [employer] Other 02-01-2021 15:30-0500 Body height 170.18 cm Eric Santana Other [employer] Other 02-01-2021 15:30-0500 Body mass index (BMI) [Ratio] 31.48 kg/m2 Eric Santana Other [employer] Other 02-01-2021 15:30-0500 Body weight 91.17 kg Eric Santana Other [employer] Other Encounters Encounter Date Encounter Type Care Provider Facility Start: 10-09-2024 End: 10-09-2024 ambulatory Lona Estrada MD Work Phone: [facility] Work Phone: Start: 10-09-2024 End: 10-09-2024 Patient encounter procedure Eric Santana [facility] Work Phone: Start: 09-17-2024 End: 09-17-2024 Patient encounter procedure Eric Santana DO -MRI [address] Closed Work Phone: Start: 09-17-2024 End: 09-17-2024 ambulatory Lona Estrada MD Work Phone: [facility] Work Phone: Start: 08-31-2024 End: 08-31-2024 ambulatory Lona Estrada MD Work Phone: [facility] Work Phone: Start: 08-31-2024 End: 08-31-2024 Patient encounter procedure Eric Olson Emily [facility] Work Phone: Start: 08-11-2024 End: 08-11-2024 Bamboo flowsheet Hussein Hebert MD Work Phone: [facility] Start: 08-11-2024 End: 08-11-2024 Bamboo flowsheet Hussein Hebert MD Work Phone: [facility] Start: 08-11-2024 End: 08-11-2024 Office outpatient new 45 minutes Hussein Hebert MD Work Phone: [facility] Comment on above: Sensorineural hearin g loss (SNHL) of left ear, unspecified hearing status on contralateral side (Primary Dx); Left ear pain; ETD (Eustachian tube dysfunction), bilateral Start: 08-11-2024 End: 08-11-2024 ambulatory HUSSEIN HEBERT Not Available Start: 12-12-2023 End: 12-12-2023 Patient encounter procedure Carla Triplett DO Work Phone: [facility] Comment on above: Carpal tunnel syndro me on both sides (Primary Dx) Start: 12-12-2023 End: 12-12-2023 ambulatory CARLA TRIPLETT Not Available Start: 12-11-2023 End: 12-11-2023 ambulatory MD Lona Estrada Work Phone: [facility] Work Phone: Start: 12-11-2023 End: 12-11-2023 Patient encounter procedure MD Lona Estrada Work Phone: [facility] Work Phone: Start: 11-21-2023 End: 11-21-2023 Orders Only Alan Damon MD Work Phone: [facility] [place] Comment on above: Asthma, unspecified asthma severity, unspecified whether complicated, unspecified whether persistent (Primary Dx) Start: 11-19-2023 End: 11-19-2023 ambulatory LONA ESTRADA Facility:[facility] Start: 10-10-2023 Non-patient / Non-visit MD Meng Estrada Work Phone: [facility] Phys[facility] Work Phone: Start: 09-04-2023 End: 09-04-2023 ambulatory Leah Casiano Facility:[facility] Noel Start: 09-04-2023 End: 09-04-2023 Patient encounter procedure Leah Susie Casiano [facility] No[facility] Start: 08-25-2023 End: 08-26-2023 Emergency department patient visit DO Ced MacEric Saul Facility:[facility] Start: 06-26-2023 End: 06-26-2023 ambulatory Ning PATEL Facility:[facility] Start: 06-20-2023 End: 06-20-2023 ambulatory HUSSEIN CHARLES Not Available Start: 06-06-2023 End: 06-06-2023 ambulatory HUSSEIN CHARLES Not Available Start: 04-29-2023 End: 04-29-2023 ambulatory HUSSEIN CHARLES Not Available Start: 02-05-2023 End: 02-05-2023 ambulatory ALEX RIDER Not Available Start: 01-09-2023 End: 01-09-2023 ambulatory RADHA POSADA Not Available Start: 10-23-2022 End: 10-23-2022 ambulatory Al Snow Other [employer] Other Start: 10-23-2022 Office outpatient vi sit 10 minutes Al Snow [facility] Start: 10-18-2022 End: 10-19-2022 ambulatory MARY TRAN [facility] Start: 07-17-2022 End: 07-17-2022 ambulatory BERNARDO ROSAS Facility:[facility] Start: 06-30-2022 End: 07-01-[address] ALEX RIDER . Facility:[facility] Start: 06-28-2022 End: 06-29-[address] ALEX RIDER . Facility:[facility] Start: 06-13-2022 End: 06-13-[address] LONA ESTRADA . Facility:[facility] Start: 06-02-2022 End: 06-03-[address] ALEX RIDER . Facility:[facility] Start: 05-31-2022 End: 06-01-[address] ALEX RIDER . Facility:[facility] Start: 05-29-2022 End: 05-30-[address] ALEX RIDER . Facility:[facility] Start: 05-18-[address] LONA ESTRADA . Facili ty:[facility] Start: 05-03-2022 End: 05-04-[address] LONA ESTRADA . Facility:[facility] Start: 04-05-2022 End: 04-05-2022 ambulatory OSCAR ASHLEY . Facility:[facility] Start: 03-06-2022 End: 03-07-[address] DOCTOR BLANC Facility:[facility] Start: 02-15-2022 End: 02-15-[address] DELPHINE MICHAUD Facility:[facility] Start: 12-26-2021 End: 12-26-2021 ambulatory QUE MELENDEZ Facility:[facility] Start: 12-06-2021 End: 12-07-[address] LONA ESTRADA . Facility:[facility] Start: 11-24-2021 End: 11-25-[address] LONA ESTRADA . Facility:[facility] Start: 10-30-2021 End: 10-31-[address] LONA ESTRADA . Facility:[facility] Start: 10-06-2021 End: 10-06-2021 Departed Referred MD Lona Estrada Work Phone: [facility] [address] Start: 08-30-2021 End: 08-31-[address] LONA ESTRADA . Facility:[facility] Start: 05-05-2021 End: 05-05-2021 ambulatory Eric Santana Other [employer] Other Start: 05-05-2021 Postop follow up vis it related to original px Eric Santana [facility] Start: 03-27-2021 End: 03-27-2021 ambulatory Eric Santana Other [employer] Other Start: 03-27-2021 Encounter for other preprocedural examination Eric Santana [facility] Start: 03-27-2021 Postop follow up vis it related to original px Eric Santana [facility] Start: 02-08-2021 End: 02-08-2021 ambulatory Eric Santana Other [employer] Other Start: 02-08-2021 Telephone encounter [facility] Start: 02-06-2021 End: 02-06-2021 ambulatory Eric Santana Other [employer] Other Start: 02-06-2021 Telephone encounter Eric Emily ANGELICA Atkins [facility] Start: 02-01-2021 End: 02-01-2021 ambulatory Eric Santana Other [employer] Other Start: 02-01-2021 Encounter for other preprocedural examination Eric BALTAZAR [facility] Start: 02-01-2021 Office outpatient ne w 45 minutes Eric BALTAZAR [facility] Procedures Date Procedure Procedure Detail Performing Clinician Start: 09-17-2024 MRI of left wrist Dougl as Natalie HUNT Work Phone: Start: 08-31-2024 Plain X-ray of left wrist Lona Estrada MD Work Phone: Start: 12-12-2023 End: 12-12-2023 Needle emg ea extremty w/paraspinl area complete Carla Triplett DO Work Phone: Start: 12-11-2023 Plain X-ray of bilat eral hands MD Lona Estrada Work Phone: Start: 03-19-2017 Microscopic observat ion [Identifier] in Cervix by Cyto stain Carla Triplett DO Work Phone: Cholecystectomy Ced Akash wilhelm H/O: tubal ligation Ced flores Tonsil and adenoid s tructure (body structure) Ced Saul Plan of Treatment Date Care Activity Detail Author Start: 09-21-2027 Screening for malign ant neoplasm of cervix [facility] Start: 10-19-2024 Influenza vaccination Influenz a Vaccine (Season Ended) [facility] Start: 08-31-2024 Plain X-ray of left wrist XR wrist L T min 3V* [facility] Start: 08-31-2024 XR Wrist - left GE 3 Views [facility] Start: 08-11-2024 End: 08-11-2024 Patient encounter procedure 08/11/2024 8:10 AM EDT Office Visit [facility] [address] [facility] [address] [place] [address] Hussein Hebert MD [address] [facility] [address] [place] [address] Arrived [facility] Comment on above: Arrived Start: 12-13-2023 End: 12-13-2023 Patient encounter procedure Pulmonary Medicine Comment on above: Asthma Start: 12-13-2023 End: 12-13-2023 ambulatory 12/13/2023 10:15 AM EDT Procedure Pulmonary Medicine [address] [address] 1, Pulm Fct Lab Main [address] [place] [address] Asthma Pulmonary Medicine Comment on above: Asthma Start: 10-20-2023 Covid-19 Vaccine ( season) Covid-19 Vaccine ( season) [facility] Start: 10-20-2023 Influenza vaccination Influenza Vacc ine (#1) [facility] Start: 03-19-2020 Screening for malign ant neoplasm of cervix Pap Smear [facility] Start: 2014 Screening for malign ant neoplasm of cervix Cervical Cancer Screening [facility] Start: 2012 Hepatitis B Vaccine (1 of 3 - 19+ 3-dose series) Hepatitis B Vaccine (1 of 3 - + 3-dose series) [facility] Start: 2012 Urine microalbumin profile DTa P,Tdap,Td Vaccine (1 - Tdap) [facility] Start: 09-06-2011 Anxiety Screening Anxiety Screening [facility] Start: 09-06-2011 Depression Screening Depression Scre ening [facility] Start: 09-06-2011 Hepatitis C screening Hepatitis C Sc donnie [facility] Start: 09-06-2011 HIV screening HIV Screening Delmar pratt [facility] Electromyography [facility] MR Wrist - left WO contrast [facility] End: 12-20-2024 NITRIC OXIDE, EXHALED NITRIC OXIDE, EXHALED PFT Routine Asthma, unspecified asthma severity, unspecified whether complicated, unspecified whether persistent 1 Occurrences starting 11/21/2023 until 12/20/2024 [facility] Work Phone: Comment on above: 1 Occurrences starti ng 11/21/2023 until 12/20/2024 End: 12-20-2024 SPIROMETRY - BASELINE AND POST DILATOR SPIROMETRY - BASELINE AND POST DILATOR PFT Routine Asthma, unspecified asthma severity, unspecified whether complicated, unspecified whether persistent 1 Occurrences starting 11/21/2023 until 12/20/2024 [facility] Comment on above: 1 Occurrences starti ng 11/21/2023 until 12/20/2024 Immunizations Immunization Date Immunization Notes Care Provider Viviana hernandez 01-17-2021 COVID-19 mRNALedyirnatjody (Pfizer) MD Lona Estrada Work Phone: [facility] 12-18-2020 COVID-19 mRNALedyirdahiana (Pfizer) MD Lona Estrada Work Phone: [facility] 01-10-2015 influenza virus vaccine, unspecified formulation Carla Triplett DO Work Phone: [facility] Payers Date Payer Category Payer Self-pay [id number] 2022 Medicaid [employer] [place] [id number] 2022-Present [phone] [address] [address] [place] [address] Medicaid [id number] 2019 Medicaid (Managed Care) 1.2. [id number] 1993 Unknown [id number] 2.16.840.1.837982.3.579.2. 593 1993 Unknown [id number] 2.16.840.1.816350.3.579.2. 59 1993 Unknown [id number] 2.16.840.1.653460.3.579.2. 593 1993 Unknown [id number] 2.16.840.1.721080.3.579.2. 59 1993 Unknown [id number] 2.16.840.1.288201.3.579.2. 59 1993 Unknown [id number] 2.16.840.1.550046.3.579.2. 59 1993 Unknown [id number] 2.16.840.1.896029.3.579.2. 59 1993 Unknown [id number] 2.16.840.1.582616.3.579.2. 59 1993 Unknown [id number] 2.16.840.1.670172.3.579.2. 59 1993 Unknown [id number] 2.16.840.1.046407.3.579.2. 59 1993 Unknown [id number] 2.16.840.1.776883.3.579.2. 593 1993 Unknown [id number] 2.16.840.1.217133.3.579.2. 59 1993 Unknown [id number] 2.16.840.1.049188.3.579.2. 59 1993 Unknown [id number] 2.16.840.1.969710.3.579.2. 59 1993 Unknown [id number] 2.16.840.1.502263.3.579.2. 593 1993 Unknown [id number] 2.16.840.1.937879.3.579.2. 59 1993 Unknown [id number] 2.16.840.1.324251.3.579.2. 593 1993 Unknown [id number] 2.16.840.1.801336.3.579.2. 175 1993 Unknown [id number] 2.16.840.1.463139.3.579.2. 1259 1993 Unknown [id number] 2.16.840.1.592737.3.579.2. 1259 1993 Unknown [id number] 2.16.840.1.641174.3.579.2. 1259 1993 Unknown [id number] 2.16.840.1.502533.3.579.2. 9 1993 Unknown [id number] 2.16.840.1.242192.3.579.2. 1259 1993 Unknown [id number] 2.16.840.1.515930.3.579.2. 727 1993 Unknown [id number] 2.16.840.1.149867.3.579.2. 727 1993 Unknown [id number] 2.16.840.1.124320.3.579.2. 727 1993 Unknown [id number] 2.16.840.1.549433.3.579.2. 1259 1993 Unknown [id number] 2.16.840.1.252707.3.579.2. 1259 1959 Unknown [id number] 2.16.840.1.350176.19 1959 Unknown [id number] 2.16.840.1.201304. 1959 Unknown [id number] 1959 Unknown [id number] Unknown [id number] 2.16.840.1.852254.19 Unknown [id number] 2.16.840.1.661149.3.579.2. 531 Unknown [id number] 2.16.840.1.848112.3.579.2. 531 Unknown [id number] 2.16.840.1.739860.3.579.2. 531 Social History Date Type Detail Facility Start: 09-01-2023 End: 08-11-[address] [facility] Start: 04-25-2021 End: 09-01-2023 Tobacco smoking status NHIS Ex-smoker (finding) [facility] Start: 1995 Sex Assigned At Female F [facility] Tobacco smoking status No Smoking Status Entered [facility] Tobacco smoking status [facility] Tobacco smoking consumption unknown [facility] Start: 1995 Sex assigned at Not on file [facility] History of tobacco use Current smoker [facility] History of tobacco use Cigarette Smoker [facility] Start: 09-01-2023 Tobacco use and exposure Smokeless tobacco non-user [facility] Start: 09-18-2023 End: 08-11-2024 Alcoholic beverage intake Current drinker of alcohol (finding) [facility] Start: 09-01-2023 End: 08-11-2024 History of Social function [facility] How often to you hav e a drink containing alcohol? Monthly or less [facility] How many standard drinks containing alcohol do you have on a typical day? 1 or 2 [facility] How often do you hav e 6 or more drinks on 1 occasion? Less than monthly [facility] Start: 09-18-2023 Gender identity Identifies as female gender (finding) [facility] Start: 08-11-2024 Alcohol Comment Occ [facility] Sex Female (finding) [facility] NEGATED: Highlighted rowStart: NINF History of tobacco use Passive smoker [facility] Functional Status Date Assessment Result Facility 08-25-2023 Functional Status N/A [facility] Clinical Notes 02-01-2021 to 08-31-2024 Note Date & Type Note Facility 08-31-2024 Evaluation note Diagnosis Onset Date Resolution Left carpal tunnel syndrome acute August 31, 2024 8:21am Mass of left wrist acute August 182024 8:21am Right carpal tunnel syndrome acute August 31, 2024 8:21am Other specified postprocedural states noneactive August 31, 2024 8:21am [facility] Work Phone: 1(879) 331-242807-14-2025 Evaluation note* Diagnosis Onset Date Resolution Status Admit Date Left carpal tunnel syndrome acute August 31, 2024 8:21am Mass of left wrist acute August 182024 8:21am Right carpal tunnel syndrome acute August 31, 2024 8:21am Other specified postprocedur al states noneactive August 31, 2024 8:21am Left carpal tunnel syndrome acute October 09, 2024 9:47am Mass of left wrist acute October 09, 2024 9:47am Right carpal tunnel syndrome acute October 09, 2024 9:47am Other specified postprocedur al states noneactive October 09 9:47am [facility] Work Phone: 1(426) 853-602006-24-2025 History of Present illness Narrative* Hussein Hebert MD - 08/11/2024 8:10 AM EDT Subjective Patient ID: Mariangel Montgomery is a 28 y.o. female who presents for Otitis Media Pt reports a 2-3 mo h/o left hearing loss and ear pressure. Tx with mult abx and steroids. No knownbruxism. H/O BM&T as a child Review of Systems All other systems reviewed and are negative. Family History Problem Relation Name Age of Onset Depression Mother Brigid Garcia Hyperlipidemia Mother Brigid Garcia Hypertension Mother Brigid Garcia Kidney disease Mother Brigid Garcia Stroke Mother Brigid Garcia Anxiety disorder Mother Brigid Garcia Diabetes Mother Brigid Garcia Thyroid disease Mother Brigid Garcia Irritable bowel syndrome Other Breast cancer Paternal Grandfather Tawny René Active Ambulatory Problems Diagnosis Date Noted Paresthesia 09/01/2023 Chronic migraine without aura without status migrainosus, not intractable 09/01/2023 Tension type headache 09/01/2023 Carpal tunnel syndrome on both sides 09/01/2023 MIKIE (obstructive sleep apnea) 09/01/2023 Low back pain with left-sided sciatica 09/01/2023 BV (bacterial vaginosis) 03/10/2015 Herpes infection in ([facility]) 01/31/2015 Missed menses 08/07/2024 Resolved Ambulatory Problems Diagnosis Date Noted No Resolved Ambulatory Problems Past Medical History: Diagnosis Date Anxiety Asthma ([facility]) CTS (carpal tunnel syndrome) Depression Migraine Otitis media, chronic Sleep apnea Threatened miscarriage ([facility]) UTI (urinary tract infection) Past Surgical History: Procedure Laterality Date CARPAL TUNNEL RELEASE GALLBLADDER SALPINGECTOMY Bilateral 03/01/2023 TONSILECTOMY, ADENOIDECTOMY, BILATERAL MYRINGOTOMY AND TUBES Allergies Allergen Reactions Latex Rash Current Outpatient Medications on File Prior to Visit Medication Sig Dispense Refill albuterol HFA 90 mcg/act inhaler Inhale 2 puffs every 4 (four) hours if needed levothyroxine (Synthroid, Levoxyl) 75 MCG tablet Take 75 mcg by mouth in the morning. Take before meals. Stiolto Respimat 2.5-2.5 MCG/ACT aerosol solution inhaler tiZANidine (Zanaflex) 4 MG tablet Ubrogepant (Ubrelvy) 50 MG tablet Take 50 mg by mouth 1 at onset of migraine and may repeat in 2 hours no more than 2 times a day and 2 times a week [DISCONTINUED] amitriptyline (Elavil) 25 MG tablet Take 25 mg by mouth at bedtime 1/2 tablet at bedtime for 2 weeks then 1 tablet at bedtime thereafter [DISCONTINUED] citalopram (CeleXA) 10 MG tablet 1 TABLET ORALLY ONCE A DAY WITH 20MG TABLET 30 DAYS [DISCONTINUED] citalopram (CeleXA) 20 MG tablet TAKE 1 TABLET BY MOUTH ONCE A DAY WITH 10 MG TABLET [DISCONTINUED] methylPREDNISolone (Medrol) 4 MG tablet Take 4 mg by mouth Daily [DISCONTINUED] tiZANidine (Zanaflex) 4 MG tablet Take 4 mg by mouth every 6 (six) hours if needed for muscle spasms No current facility-administered medications on file prior to visit. Objective Last Recorded Vitals Vitals: 08/11/24 0803 BP: 120/84 Pulse: 87 ENT Physical Exam Constitutional Appearance: patient appears well-developed, well-nourished and well-groomed, Head and Face Appearance: head appears normal and face appears atraumatic; Palpation: TMJ tender bilaterally; TMJ comments: L>R tenderness exacerbated by opening mout Ear Ear Canals: right ear canal normal; left ear canal normal; Tympanic Membranes: right tympanic membrane normal; left tympanic membrane normal; Ear comments: Reaves lat to RT. Elliot [address] A>B. Elliot tymps normal. Nose External Nose: nares patent bilaterally; external nose normal; Internal Nose: septum normal; Oral Cavity/Oropharynx Tongue: normal; Oral mucosa: normal; Hard palate: normal; Soft palate: normal; Tonsils: normal; Neck Neck: neck normal; neck palpation normal; Thyroid: thyroid normal; Respiratory Inspection: breathing unlabored; normal breathing rate; Auscultation: breath sounds are clear; Cardiovascular Inspection: extremities are warm and well perfused; no peripheral edema present; Auscultation: regular rate and rhythm; Assessment/Plan Diagnoses and all orders for this visit: Sensorineural hearing loss (SNHL) of left ear, unspecified hearing status on contralateral side Left ear pain ETD (Eustachian tube dysfunction), bilateral No sign of OE or OM on exam today. Pt very clearly has TMJ. I will try a trial of meloxicam and an OTC night time oral appliance. If no help, I recommend pt be referred to an oral surgeon. I will also check an audio as forks suggest a left SNHL. documented in this encounterProgress [facility] [id number] History of Present illness Narrative* RENAY Perez - 12/12/2023 9:00 AM EDT Images from the original note were not included. Reason for Appointment: EMG Patient: Mariangel Montgomery : 1995 EMG Computer: [employer] Referring Physician: Dr. 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 Hx of bilateral CTR. No hx of DM. Not on blood thinners. Comments: Procedure was explained to the patient who expressed understanding. Patient appeared to have tolerated the test well despite some discomfort due to the nature of the test. documented in this encounterProgress West [id number] Hospital Discharge instructions Patient Education 08/26/2023 00:23:44 General Headache Without Cause General Headache Without Cause A headache is pain or discomfort felt around the head or neck area. There are many causes and typesof headaches. A few common types include: Tension headaches. Migraine headaches. Cluster headaches. Chronic daily headaches. Sometimes, the specific cause of a headache may not be found. Follow these instructions at home: Watch your condition for any changes. Let your health care provider know about them. Take these steps to help with your condition: Managing pain Take hcyt-iqq-fvfbvks and prescription medicines only as told by [...] you need help quitting, ask your health careprovider. Exercise regularly as told by your health [...] that is different from the usual headache, orif your symptoms are not helped by medicine. Get help right away if your headache becomes severe, you vomit, you have a loss of vision, you loseyour balance, or you have a seizure. This information is not intended to replace advice given to you by your health care provider. Make sure you discuss any questions you have with your health care provider. Document Revised: 07/05/2021 Document Reviewed: 07/05/2021 [employer] Patient Education 2022 [employer]. Follow Up Care 08/25/2023 20:37:11 With:Lona Estrada Address: [address] [place] [phone] (1) When:Within 3 Day([address]) [facility]07-08-2024 NoteED Patient Education Note Neurology General Headache Without Cause A headache is pain or discomfort felt around the head or neck area. There are many causes and typesof headaches. A few common types include: ? Tension headaches. ? Migraine headaches. ? Cluster headaches. ? Chronic daily headaches. Sometimes, the specific cause of a headache may not be found. Follow these instructions at home: Watch your condition for any changes. Let your health care provider know about them. Take these steps to help with your condition: Managing pain ? Take eaqx-xnn-qflcvhw and prescription medicines only as told by [...] each night, or the amount recommended by yourhealth care provider. ? Keep all follow-up visits. [...] provider. Document Revised: 07/05/2021 Document Reviewed: 07/05/2021 [employer] Patient Education ? 2022 [employer].[facility] 08-25-2023 Evaluation + Plan noteExtracted from: Title:ED Note Author:Ced Saul DO Date [...] with Cult Rflx XR Chest Single View [facility]2023 Evaluation note* Encounter Date Diagnosis Assessment [...] avoid eating prior to HS. Continue PPI [employer] Other 05-30-2023 NotePROCEDURE: US PREG <14 WKS, [...] Electronically authenticated by: IKE COMBS Date: 2022-07-17 17:34[facility]03-18-2022 Evaluation note* Encounter Date Diagnosis Assessment Notes [...] on range of motion and strength exercise. [employer] Other 02-07-2022 Evaluation note* Encounter Date Diagnosis [...] office today. Prior medical notes from Dr. Estrada and history have been reviewed. 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 I have [...] outcome. Mar, Pre-op examination (ICD-10 - Z01.818) [employer] Other 12-15-2021 Evaluation note* Encounter Date Diagnosis [...] office today. Prior medical notes from Dr. Estrada and history have been reviewed. 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 [employer] Other Evaluation noteNo InformationNortExcela [facility] [employer] Other Evaluation noteNo assessment information available [facility] [employer] Work Phone: Evaluation note* Diagnosis Asthma, unspecified asthma severity, unspecified whether complicated, unspecified whether persistent- Primary [facility] Diagnosis Onset Date Resolution Status Left carpal tunnel syndrome acute Right carpal tunnel syndrome acute Other specified postprocedural states noneactive [facility] Work Phone: Evaluation note* Diagnosis Carpal tunnel syndrome on both sides- Primary Carpal tunnel syndrome documented in this encounter [facility] HealthcareEvaluation note* Diagnosis Sensorineural hearing loss (SNHL) of left ear, unspecified hearing status on contralateral side- Primary Left ear pain Unspecified otalgia ETD (Eustachian tube dysfunction), bilateral documented in this encounter [facility] HealthcareEvaluation note* Diagnosis Onset Date Resolution Status Admit Date Left carpal tunnel syndrome acute August 31, 2024 8:21am Mass of left wrist acute August 182024 8:21am Right carpal tunnel syndrome acute August 31, 2024 8:21am Other specified postprocedur al states noneactive August 31, 2024 8:21am [facility] Work Phone: History general Narrative - Reported* Type Description Date Medical History migraine headache Medical History hyperthyroidism Medical History back muscle spasms Surgical History gall bladder Surgical History tonsillectomy and adenoidectomy Surgical History ear tubes Hospitalization History childbirth [facility] [employer] Other History general Narrative - Reported* Type Description Date Medical History GERD Medical History BOB Surgical History T/A Surgical History CTS Surgical History Cholecystectomy [facility] [employer] Other Hospital course Narrative No data [facility] No data [facility] this [facility] No data available for this section [facility] ([facility]arrative)* Outpatient Procedure (Routine) - Authorized Specialty Diagnoses / Procedures Referred By Mohan mckinley Referred To [facility] Diagnoses Asthma, unspecified asthma severity, unspecified whether complicated, unspecified whether persistent Procedures SPIROMETRY - BASELINE AND POST DILATOR BRNCDILAT RSPSE SPMTRY PRE&POST-BRNCDILAT ADMN Rayshawn Shirley MD [address] [place] [address] [address] [address] [place] [address] Referral ID Status Reason Start Date Expiration Date Visits Requested Visits Authorized [id number] Authorized Auto-Generat ed Referral 11/21/2023 12/20/2024 1 1 * Outpatient Procedure (Routine) - Authorized Specialty Diagnoses / Procedures Referred By Contac t Referred To Contact [facility] Diagnoses Asthma, unspecified asthma severity, unspecified whether complicated, unspecified whether persistent Procedures NITRIC OXIDE, EXHALED NITRIC OXIDE GAS DETERMINATION Rayshawn Shirley MD [address] [place] [address] [address] [place] [address] [place] [id number] Referral ID Status Reason Start Date Expiration Date Visits Requested Visits Authorized [id number] Authorized Auto-Generat ed Referral 11/21/2023 12/20/2024 1 1 [facility] (narrative)No reason for referral information availableAs[facility] Work Phone: Chief Complaint and Reason for Visit Chief Complaint Admit Date OP CRYPTOLOGIST LT WRIST GANGLION CYST August 31, 2024 8:21am R22.32 August 31, 2024 8:30 am Reason for Visit Admit Date Left carpal tunnel syndrome August 31, 025 8:21am Mass of left wrist August 31, 2024 8:21 am Right carpal tunnel syndrome August 31, 2024 8:21am Other specified postprocedural states Ju ly 2024 8:21am Chief Complaint labs Chief Complaint OP SP BILAT HAND LEATHA N NX M79.641 - Pain in right hand Reason for Visit Left carpal tunnel s yndrome Right carpal tunnel syndrome Other specified postprocedural states Chief Complaint Admit Date OP CRYPTOLOGIST LT WRIST GANGLION CYST August 31, 2024 8:21am R22.32 - Localized swelling, mass and praneeth mp, left u August 31, 2024 8:30am Chief Complaint Admit Date OP CRYPTOLOGIST LT WRIST GANGLION CYST August 31, 2024 8:21am R22.32 August 31, 2024 8:30 am R22.32 September 17, 2024 7:37 am Chief Complaint Admit Date OP CRYPTOLOGIST LT WRIST GANGLION CYST August 31, 2024 8:21am R22.32 August 31, 2024 8:30 am R22.32 September 17, 2024 7:37 am MRI RESULTS October 09, 2024 9: 47am Reason for Visit Admit Date Left carpal tunnel syndrome August 31, 2 025 8:21am Mass of left wrist August 31, 2024 8:21 am Right carpal tunnel syndrome August 31, 2024 8:21am Other specified postprocedural states Ju ly 2024 8:21am Left carpal tunnel syndrome October 09, 2024 9:47am Mass of left wrist October 09, 2024 9: 47am Right carpal tunnel syndrome September 9:47am Other specified postprocedural states Au jessica 2024 9:47am Family History Relationship Condition Age at Onset Recorded Date/T monie Not Specified Diabetes mellitus Unknown Not Specified Cerebrovascular accident (CVA) Unknown Relationship Condition Age at Onset Recorded Date/T monie mother Diabetes mellitus Unknown mother Cerebrovascular accident (CVA) Unknown father Heart disease Unknown family member Unknown mother Hypertension Unknown Diabetes mellitus Unknown History of stroke Unknown Advance Directives Advance Directive Response Recorded Date/ Time Advance Directives No February 21, 2021 4:11pm Summary Purpose Additional Source Comments REASON FOR VISIT (unrecogniz ed section and content) Reason 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 OPCONSULT DR NATALIE NARANJO CTS [facility] Care Teams (unrecognized sec tion and content) Team Status: Active Member Role Status Dates Lona Estrada MD Primary Care Provider Active Team Status: Inactive Member Role Status Dates Lona Estrada MD Primary Care Provider Active Start: August 31, 2024 End: August 31, 2024 Eric Santana DO Attending Provider Active S tart: August 31, 2024 End: August 31, 2024 Team Status: Active Member Role Status Dates Lona Estrada MD Primary Care Provider Active Start: August 31, 2024 Eric Santana DO Attending Provider Active S tart: August 31, 2024 Team Status: Active Member Role Status Dates Lona Estrada MD Primary Care Provider Active Start: October 10, 2023 Al Snow DO Attending Provider Active Sta rt: October 10, 2023 Team Status: Inactive Member Role Status Dates Lona Estrada MD Primary Care Provider Active Start: December 11, 2023 End: December 11, 2023 Eric Santana DO Attending Provider Active S tart: December 11, 2023 End: December 11, 2023 Team Status: Inactive Member Role Status Dates Lona Estrada MD Primary Care Provider Active Anjali Hendrix APRN Attending Provider Active 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 Start Date End Date Lona Estrada MD [address] [place] [address] Referring Family Medicine 11/21/23 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 Specialty Start Date End Date Lona Estrada MD [address] [place] [address] PCP - General Family Medicine 07/23/22 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 Specialty Start Date End Date Lona Estrada MD [address] [place] [address] PCP - General Family Medicine 07/23/22 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 Specialty Start Date End Date Lona Estrada MD [address] [place] [address] PCP - General Family Medicine 07/23/22 Team Status: Inactive Member Role Status Dates Lona Estrada MD Primary Care Provider Active Start: September 17, 2024 End: September 17, 2024 Eric Santana DO Attending Provider Active S tart: September 17, 2024 End: September 17, 2024 Team Status: Inactive Member Role Status Dates Lona Estrada MD Primary Care Provider Active Start: October 09, 2024 End: October 09, 2024 Eric Santana DO Attending Provider Active S tart: October 09, 2024 End: October 09, 2024 Goals (unrecognized section and content) Goals may be documented in a n alternate section INFORMATION SOURCE (unrecogn ized section and content) DATE CREATED AUTHOR 07/27/2022 [facility] DATE CREATED AUTHOR AUTHOR'S ORGANIZ ATION 12/27/2022 [facility] DATE CREATED AUTHOR AUTHOR'S ORGANIZ ATION 06/21/2023 [facility] EPIC DATE CREATED AUTHOR AUTHOR'S ORGANIZ ATION 08/25/2023 [facility] DATE CREATED AUTHOR AUTHOR'S ORGANIZ ATION 09/07/2023 [facility] DATE CREATED AUTHOR AUTHOR'S ORGANIZ ATION 11/22/2023 [facility] DATE CREATED AUTHOR AUTHOR'S ORGANIZ ATION 08/12/2024 [facility] EPIC DATE CREATED AUTHOR AUTHOR'S ORGANIZ ATION 09/19/2024 [facility] Source Comments (unrecognize d section and content) In the event this informatio n is protected by the Federal Confidentiality of Alcohol and Drug Abuse Patient Records regulations: The Federal rules restrict any use of the information to criminally investigate or prosecute any alcohol or drug abuse patient.[facility] FOR RECORDS PERTAINING TO PATIENTS WHO ARE [...] BE BASED ON THE PRIMARY CLINICAL RECORDS. [employer] [facility]. provides no warranty or guarantee of the accuracy or completeness of information in this document.
[2024-11-01 20:11] VITALS: BP 135/87; PULSE 104; TEMP 37.1; O2SAT 99; BMI 36.0
--- NOTE | 2024-11-01 20:22 | ED_ITS ---
HPI - URI/Sore Throat General Chief Complaint: Upper Respiratory Infection Stated Complaint: SORE THROAT, EARS, CHEST Time Seen by Provider: 11/01/24 20:14 Source: patient Limitations: no limitations History of Present Illness HPI Narrative: 29-year-old female presents with 10?12 days of upper respiratory symptoms, including dry cough, sore throat, sinus pressure, and nasal congestion. She reports sweats and chills, but denies chest pain, productive cough, wheezing, shortness of breath, abdominal pain, nausea, vomiting, or diarrhea. She has tried ujhk-mrn-sbbjikw cold medications (e.g., TheraFlu) without significant relief. She notes pharyngeal irritation. Patient is otherwise healthy, alert, and oriented, though appears mildly ill. Related Data Home Medications ?Medication ?Instructions ?Recorded ?Confirmed albuterol sulfate 2.5 mg/3 mL 1.25 mg inhalation Q2H P RN 12/17/22 03/01/23 (0.083 %) solution for nebulization shortness of breat h or wheezing albuterol sulfate 90 mcg/actuation 2 inh inhalation Q6 H PRN shortness 12/17/22 03/01/23 aerosol inhaler of breath or wheezing citalopram 10 mg tablet 10 mg PO DAILY 12/17/2202/18 citalopram 20 mg tablet 20 mg PO DAILY 12/17/2202/18 fluticasone fur. 200 mcg-umeclid 1 inh inhalation Q24H 02/25/23 03/01/23 62.5 mcg-vilant 25 mcg inhalat.powder (Trelegy Ellipta) fluticasone propionate 110 2 inh inhalation Q12H PRN w heezing 02/25/23 03/01/23 mcg/actuation HFA aerosol inhaler (Flovent HFA) ondansetron 4 mg disintegrating 4 mg PO Q6H PRN nausea and vomiting 02/25/23 03/01/23 tablet tizanidine 4 mg tablet 8 mg PO QPM PRN muscle spast icity 02/25/23 03/01/23 ubrogepant 100 mg tablet (Ubrelvy) 100 mg PO DAILY PRN migraine 02/25/2302/18 headache Previous Rx's ?Medication ?Instructions ?Recorded hydrocodone 5 mg-acetaminophen 325 1 tab PO Q4H PRN pa in 4 days #16 03/01/23 mg tablet tabs ibuprofen 800 mg tablet 800 mg PO Q8H PRN pain 14 da ys #40 03/01/23 tabs amoxicillin 875 mg-potassium 1 tab PO BID 10 days #20 tabs 11/01/24 clavulanate 125 mg tablet prednisone 20 mg tablet 40 mg (2 x 20 mg) PO DAILY 5 days 11/01/24 #10 tabs Allergies Allergy/AdvReac Type Severity Reaction Status Date / Time latex Allergy Intermediate Hives Verified 11/01/24 20:11 [facility] Medical History (Updated 11/01/24 @ 20:28 by ESSENCE MCKEON) PTSD (post-traumatic stress disorder) ?F43.10 - Post-traumatic stress disorder, unspecified (ICD-10) Depression ?F32.A - Depression, unspecified (ICD-10) Anxiety ?F41.9 - Anxiety disorder, unspecified (ICD-10) COVID-19 ?U07.1 - COVID-19 (ICD-10) Pneumonia ?J18.9 - Pneumonia, unspecified organism (ICD-10) Asthma ?J45.909 - Unspecified asthma, uncomplicated (ICD-10) Migraine ?G43.909 - Migraine, unspecified, not intractable, without status migrainosus (ICD-10) Heartburn ?R12 - Heartburn (ICD-10) Thyroid disorder ?E07.9 - Disorder of thyroid, unspecified (ICD-10) Postoperative nausea and vomiting ?R11.2 - Nausea with vomiting, unspecified (ICD-10) ?Z98.890 - Other specified postprocedural states (ICD-10) Request for sterilization ?Z30.2 - Encounter for sterilization (ICD-10) Normal vaginal delivery ?O80 - Encounter for full-term uncomplicated delivery (ICD-10) Surgical History (Updated 02/25/23 @ 08:23 by Es Hendrix NP) History of carpal tunnel release ?Z98.890 - Other specified postprocedural states (ICD-10) History of cholecystectomy ?Z90.49 - Acquired absence of other specified parts of digestive tract (ICD- 10) History of myringotomy ?Z98.890 - Other specified postprocedural states (ICD-10) History of tonsillectomy and adenoidectomy ?Z90.89 - Acquired absence of other organs (ICD-10) Family History (Updated 02/25/23 @ 08:23 by Es Hendrix NP) Other Family history of breast cancer Family history of diabetes mellitus Family history of hypertension Family history of stroke Social History (Updated 02/25/23 @ 08:19 by Es Hendrix NP) Within the past year, how often did you have a drink containing alcohol: 2-4 times a month Smoking status: Former smoker Non-prescribed substance use: denies use 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 Highest level of school completed/degree received: high school graduate Little interest or pleasure in doing things: not at all Feeling down, depressed, or hopeless: not at all Exam Narrative Exam Narrative: General: Alert, oriented ?3, no acute distress, appears mildly ill HEENT: * Sinuses tender to percussion * Tympanic membranes mildly bulging * Pharynx mildly erythematous * No nuchal rigidity Cardiac: Regular rate and rhythm, no murmurs Respiratory: Lungs clear to auscultation bilaterally, no wheezing or crackles Abdomen: Soft, non-tender, no organomegaly Skin: No rashes Constitutional Vital Signs, click to edit/add: Last Vital Signs Temp 98.8 F 11/01/24 20:11 Pulse 104 H 11/01/24 20:11 Resp 18 11/01/24 20:11 BP 135/87 11/01/24 20:11 Pulse Ox 99 11/01/24 20:11 O2 Del Method Room Air 11/01/24 20:11 Course Vital Signs Vital signs: Vital Signs Temperature 98.8 F 11/01/24 20:11 Pulse Rate 104 H 11/01/24 20:11 Respiratory Rate 18 11/01/24 20:11 Blood Pressure 135/87 11/01/24 20:11 Pulse Oximetry 99 11/01/24 20:11 Oxygen Delivery Method Room Air 11/01/24 20:11 Temperature 98.8 F 11/01/24 20:11 Pulse Rate 104 H 11/01/24 20:11 Respiratory Rate 18 11/01/24 20:11 Blood Pressure 135/87 11/01/24 20:11 Pulse Oximetry 99 11/01/24 20:11 Oxygen Delivery Method Room Air 11/01/24 20:11 MDM - URI/Sore Throat MDM Narrative Medical decision making narrative: 29-year-old female presents with 10?12 days of upper respiratory symptoms including dry cough, sore throat, sinus pressure, and nasal congestion. Exam notable for sinus tenderness, mildly bulging tympanic membranes, and mild pharyngeal erythema, without signs of lower respiratory tract infection or systemic compromise. Presentation is consistent with acute bacterial sinusitis. Patient is hemodynamically stable and able to tolerate oral medications. Treatment plan includes Augmentin for 10 days and Prednisone for 5 days, along with nasal saline irrigation for symptomatic relief. Patient instructed to follow up with primary care provider and return for care if she develops worsening fever, facial swelling, visual changes, severe headache, or shortness of breath. Patient verbalized understanding and agrees with the treatment plan. Plan: * Medications: * Augmentin 875mg bid for 10 days (first-line therapy for bacterial sinusitis) * Prednisone 40 mg QD for 5 days to reduce inflammation * Supportive care: * Nasal saline irrigation for congestion and sinus relief * Follow-Up: * Contact primary care provider for re-evaluation as needed * Return precautions: * Worsening fever, shortness of breath, chest pain, or severe headache * Vision changes or worsening facial swelling Differential Diagnosis Differential diagnosis: Likely upper respiratory infection, otitis media, sinusitis, viral infection, bronchitis, influenza and pharyngitis Medical Records Attestation: I reviewed the patient's medical records. Discharge Plan Discharge Chief Complaint: Upper Respiratory Infection Clinical Impression: Sinusitis Patient Disposition: Home, Self-Care Time of Disposition Decision: 20:28 Condition: Good Prescriptions / Home Meds: New amoxicillin-pot clavulanate 875-125 mg tablet 1 tab PO BID 10 Days Qty: 20 0RF prednisone 20 mg tablet 40 mg PO DAILY 5 Days Qty: 10 0RF No Action albuterol sulfate 2.5 mg /3 mL (0.083 %) solution for nebulization 1.25 mg inhalation Q2H PRN (Reason: shortness of breath or wheezing) citalopram 10 mg tablet 10 mg PO DAILY citalopram 20 mg tablet 20 mg PO DAILY albuterol sulfate 90 mcg/actuation HFA aerosol inhaler 2 inh INHALATION Q6H PRN (Reason: shortness of breath or wheezing) Trelegy Ellipta 200-62.5-25 mcg blister with device 1 inh INHALATION Q24H fluticasone propionate [Flovent HFA] 110 mcg/actuation HFA aerosol inhaler 2 inh INHALATION Q12H PRN (Reason: wheezing) Ubrelvy 100 mg tablet 100 mg PO DAILY PRN (Reason: migraine headache) tizanidine 4 mg tablet 8 mg PO QPM PRN (Reason: muscle spasticity) ondansetron 4 mg tablet,disintegrating 4 mg PO Q6H PRN (Reason: nausea and vomiting) ibuprofen 800 mg tablet 800 mg PO Q8H PRN (Reason: pain) 14 Days Qty: 40 0RF hydrocodone-acetaminophen 5-325 mg tablet 1 tab PO Q4H PRN (Reason: pain) 4 Days Qty: 16 0RF Print Language: Cape Verdean Instructions: Sinusitis (ED) Additional Instructions: Diagnosis: * Acute bacterial sinusitis Medications Prescribed: * Augmentin (amoxicillin/clavulanate) 875mg : 2 times a day as prescribed for 10 days * Prednisone: once a day as prescribed for 5 days to help reduce inflammation Home Care Instructions: * Nasal Care: * Use saline nasal sprays or rinses to help relieve congestion * Avoid blowing your nose too forcefully * Symptom Relief: * Qkmy-zlc-ybjrakh pain relievers (acetaminophen or ibuprofen) may be used for headache, sinus pressure, or body aches * Stay well-hydrated and get plenty of rest * General Health: * Wash hands frequently * Avoid close contact with others if symptomatic * Continue supportive care as needed When to Seek Medical Care: * Fever worsens or does not improve * Increasing sinus or facial pain/swelling * Vision changes, severe headache, or confusion * Shortness of breath, chest pain, or difficulty breathing Follow-Up: * Contact your primary care provider for re-evaluation if symptoms persist or worsen * Complete the full course of antibiotics even if you start feeling better Referrals: Aldair Gomez MD [Primary Care Provider, [facility]] - 1 week Discharge Date/Time: 11/01/24 20:45
[2024-11-01] MEDS: AMOXICILLIN/POT CLAV 875-125 MG TABLET 1 TAB PO (20:36)
[2024-11-01] MEDS: PREDNISONE 20 MG TABLET 40 MG PO (20:36)
== END 2024-11-01 20:45 | disposition home or self-care (01) ==
PROVIDERS: Emergency Provider Internal Medicine; PCP Family Medicine
DX: J01.90 Acute sinusitis, unspecified (principal); B96.89 Other specified bacterial agents as the cause of diseases classified elsewhere; Z87.891 Personal history of nicotine dependence
CPT/HCPCS: 99283; J7512

== ENCOUNTER 2025-02-04 09:15 | Outpatient (OUT) | payer OTHER, SELFPAY ==
--- OUTSIDE RECORDS SUMMARY | 2025-02-04 09:20 | XMS_ITS | Clinical Summary ---
Author Organization [facility] Address [address] [place] [address] Phone Care Team Providers Care Public Health Analyst Name Role Phone Unavailable Primary Care Provider Unavailabl e Social History Tobacco UseTypesPacks/DayYears UsedDateSmoking Tobacco: Never Assessed CommentsNoSex and Gender InformationValueDate RecordedSex Assigned at BirthNot on fileLegal GrcJvrtsn53/11/2023 11:22 AM EDTGender IdentityNot on fileSexual OrientationNot on file Plan of Treatment Health MaintenanceDue DateLast DoneCommentsHIV Mdkzxriwu54/19/1994Lipid Panel 1993Yearly Adult Pyspvpkx04/19/1994MMR Vaccines (1 of 1 - Standard series) 1994Hepatitis C Yhcclnytu52/19/2012Hepatitis B Vaccines (1 of 3 - 19+ 3- dose series)2012Cervical Cancer Tkrnwofmp22/19/2015HPV/Gchlkb1809/05/2014Pap Smear2014DTaP/Tdap/Td Vaccines (1 - Tdap)09/06/2015HPV Vaccines (1 - 3- dose standard series)2020Influenza Vaccine (#1)2024OVID-19 Vaccine ( - season)2024Zoster Vaccines (1 of 2)09/06/2043HIB VaccinesAged OutNo longer eligible based on patient's age to complete this topicHepatitis A VaccinesAged OutNo longer eligible based on patient's age to complete this topic IPV VaccinesAged OutNo longer eligible based on patient's age to complete this topicMeningococcal VaccineAged OutNo longer eligible based on patient's age to complete this topicPneumococcal Vaccine: Pediatrics and At-Risk Adult Patients Aged OutNo longer eligible based on patient's age to complete this topic Rotavirus VaccinesAged OutNo longer eligible based on patient's age to complete this topic Insurance
--- OUTSIDE RECORDS SUMMARY | 2025-02-04 09:21 | XMS_ITS | Clinical Summary ---
Author Organization [facility] Address [address], [address] [place] [address] Care Team Providers Care Director Learning Services Name Role Phone Aldair Gomez MD Primary Care Provider [phone] Allergies Active AllergyReactionsCriticalityNoted AynmXmsjvpaaRcbgeWviiCwe12/26/2015 Medications MedicationSigDispense QuantityRefillsLast FilledStart DateEnd DateStatus Rzhxrlah-Deg-Ts-FA ( VITAMINS) 0.8 MG TABS Indications:Pelvic pain affecting pregnancyTake 1 tablet by mouth daily 60 tablet ctive ondansetron (ZOFRAN-ODT) 4 MG disintegrating tablet 10/15/2022ctive albuterol sulfate HFA (PROVENTIL;VENTOLIN;PROAIR) 108 (90 Base) MCG/ACT inhaler INHALE 2 PUFFS INTO THE LUNGS USING INHALER EVERY 4 HOURS MZXNVO2410/12/2022 Active citalopram (CELEXA) 20 MG tablet Take 1.5 tablets by mouth daily Takes 20 and 1/2 a tablet to equal 30 mg 10/30/2022ctive omeprazole (PRILOSEC) 20 MG delayed release capsule TAKE 1 CAPSULE BY MOUTH AT BEDTIME *DO NOT CRUSH OR CHEW*12/01/2022ctive tiZANidine (ZANAFLEX) 4 MG tablet 12/20/2022ctive Vit-Fe Fumarate-FA (CVS ) 27-0.8 MG TABS 12/20/2022ctive Active Problems ProblemNoted DateDiagnosed DateBV (bacterial vaginosis) y.o. 01/31/2015 Overview (01/31/2015): PNL: Opos, ABS neg, HIV, HepB, and RPR non-reactive, Rubella immune, urine cx and UDS neg, Pap and DNA pending Dates by: 5 week 6 days U/S 12/30/14 Genetic screening: Anatomy US: 2nd trimester labs: Flu shot: done 12/30/14 T dap: GBS: Herpes infection in [place]/14/2015 Overview (01/31/2015): Herpes diagnosis early 2014, no outbreak since first one, will give Valtrex at 36 weeks. Immunizations ImmunizationAdministration DatesNext DueInfluenza Virus Ilvttvc1001/10/2015 Family History Medical HistoryRelationNameCommentsHeart DiseaseFatherDiabetesMotherAsthmaNeg Hx Breast CancerNeg HxCancerNeg HxHeart FailureNeg HxHigh CholesterolNeg Hx HypertensionNeg HxMigrainesNeg HxOsteoarthritisNeg HxOvarian CancerNeg Hx Rashes/Skin ProblemsNeg HxRheum ArthritisNeg HxSeizuresNeg HxStrokeNeg HxThyroid DiseaseNeg HxRelationNameStatusCommentsBrotherAliveFatherAliveMotherAliveSister Alive Social History Tobacco UseTypesPacks/DayYears UsedDateSmoking Tobacco: FormerCigarettes 09/18/2012 - 09/18/2014Smokeless Tobacco: Never Tobacco Cessation:Counseling Given: No Alcohol UseStandard Drinks/WeekCommentsNot Currently0 (1 standard drink = 0.6 oz pure alcohol)CommentsNoSex and Gender InformationValueDate RecordedSex Assigned at RdyseAvtxbb48/31/2023 4:47 PM EDTLegal YgtOofort46/26/2015 4:40 PM EDTGender AjkcxqzvMkvpch18/31/2023 4:47 PM EDTSexual OrientationStraight 12/18/2022 4:47 PM EDT Last Filed Vital Signs Vital SignReadingTime TakenCommentsBlood Tcnihojs615/7611 9:22 AM EST Mqyzh285212/26/2022 9:22 AM UHHUispygsumgq97.8 ??C (98.2 ??F)12/19/2022 9:13 AM EDTRespiratory Vhrp014802/18/2022 9:13 AM EDTOxygen Npvwsjznor08%01/28/2015 9:49 PM ESTInhaled Oxygen Concentration--Vqypbq130 kg (227 lb)12/26/2022 9:22 AM EST Liwjzg760.2 cm (5' 7 )12/26/2022 9:22 AM ESTBody Mass Index35.5512/26/2022 9:22 AM EST Plan of Treatment Health MaintenanceDue DateLast DoneCommentsDepression Dczfju2209/05/2005Varicella vaccine (1 of 2 - 13+ 2-dose series)2006Hepatitis C kkdqey9609/06/2011 DTaP/Tdap/Td vaccine (1 - Tdap)2012Hepatitis B vaccine (2 of 3 - 19+ 3- dose series)Pap smearCervical cancer ledeni1209/06/2023HPV (without or with Pap)09/06/2023Flu vaccine (#1)09/18/2024 01/10/2015COVID-19 Vaccine (2024- season)HIV screen Edlylnpxm99/13/2015HPV vaccine (No Doses Required)CompletedHepatitis A vaccine Aged OutNo longer eligible based on patient's age to complete this topicHib vaccineAged OutNo longer eligible based on patient's age to complete this topic Meningococcal (ACWY) vaccineAged OutNo longer eligible based on patient's age to complete this topicMeningococcal B vaccineAged OutNo longer eligible based on patient's age to complete this topicPneumococcal 0-49 years VaccineAged OutNo longer eligible based on patient's age to complete this topicPolio vaccineAged OutNo longer eligible based on patient's age to complete this topic Procedures Procedure NamePriorityDate/TimeAssociated DiagnosisCommentsPAP SMEARRoutine 01/31/2015 12:00 AM EST HIV RLETWQKshbphi02/13/2015 9:44 AM EST Irregular menses from Last 3 Months or Most Recently Relevant to Health Maintenance Results * PAP SMEAR (01/31/2015 12:00 AM EST)Specimen (Source)Anatomical Location / LateralityCollection Method / VolumeCollection TimeReceived Time01/31/2015 02/01/2015 10:16 AM EST Narrative [facility] - 02/03/2015 4:26 PM EST [facility] ? [address] ? [place], [place] ??[address] ? . [phone] Department of Pathology CYTOLOGY PAP REPORT Patient Name: ??SMALL, MARIANGEL L ? Accession No: ??[id number] GENERAL CATEGORIZATION: Negative for Intraepithelial Lesion or Malignancy INTERPRETATION/RESULTS: Shift in vaginal marshall suggestive of bacterial vaginosis. SPECIMEN ADEQUACY: Satisfactory for Evaluation. ??Endocervical cells/transformation zone component present. HPV High Risk Test: Specimen: ?? THINPREP LIQUID BASE IMAGED DIAGNOSTIC, CERVICAL ENDOCERVICAL History: ?? No Prior Abnormal Smear: ? No CPT: Technical: ??44635 X1 Case reviewed at [place], [place] Our Cytology Laboratory uses the ThinPrep Floor Hand to automatically screen all ThinPrep Pap smears. ??The ThinPrep Floor Hand is approved by the FDA for this purpose, and enables our laboratory to apply a single quality control supervisor standard on these Pap smears. ??Upon initial screening of cases, this instrument identifies cases requiring additional manual review or additional quality control supervisor rescreening. Cervical cytology is a screening test primarily for squamous cancers and precursors and has associated false negative and positive results. New technologies such as liquid based sampling may decrease but not eliminate all false negative results. Regular (generally annual) sampling and follow-up of unexplained clinical signs and symptoms are recommended to minimize false negative results. Screened By: ? Rescreened By: LOVE FAIR, ?LOVE FAIR, CT(ASCP) ?CT(ASCP) ?Electronically signed ?out by ?02/03/2015 ? Page 1of 1 Authorizing ProviderResult TypeResult StatusLeonor Seaman INTERIOR DESIGN PROJECT MANAGER - CNM PATHOLOGY/CYTOLOGY ORDERABLESEdited Result - FinalPerforming OrganizationAddress City/State/ZIP CodePhone Number [facility] [address] [place] [address], [facility] [phone] * HIV Screen (12/31/2014 9:44 AM EST)ComponentValueRef RangeTest MethodAnalysis TimePerformed AtPathologist SignatureHIV-1/HIV-2 TwLjo-zfevrarlWpj-ikffekre 01/03/2015 8:18 AM ESTSWOH [facility] LABSpecimen (Source)Anatomical Location / LateralityCollection Method / VolumeCollection TimeReceived TimeBLOOD SPECIMEN / Skfajta5112/31/2014 9:44 AM EST12/31/2014 6:32 PM EST Narrative Authorizing ProviderResult TypeResult StatusCararmaan Miranda MDIMMUNOLOGY ORDERABLESFinal ResultPerforming OrganizationAddressCity/State/ZIP CodePhone Number [facility] [address] [place] [address] from Last 3 Months or Most Recently Relevant to Health Maintenance Insurance Care Teams Team MemberRelationshipSpecialtyStart DateEnd Date Aldair Gomez MD [address] [place] [address] PCP - GeneralFamily Zdpcflfu53/2/23
--- OUTSIDE RECORDS SUMMARY | 2025-02-04 09:21 | XMS_ITS | Clinical Summary ---
Author Organization [facility] Address [address] [place] [address] Care Team Providers Care Risk Control Specialist Name Role Phone Aldair Gomez MD Primary Care Provider [phone] Allergies Active AllergyReactionsCriticalityNoted YhzdYazpooxsPggqkYvqhEmo32/26/2015 Medications MedicationSigDispense QuantityRefillsLast FilledStart DateEnd DateStatus albuterol HFA 90 mcg/act inhaler Inhale 2 puffs every 4 (four) hours if qsalff2204/16/2023ctive Stiolto Respimat 2.5-2.5 MCG/ACT aerosol solution inhaler 04/16/2023ctive tiZANidine (Zanaflex) 4 MG tablet 04/21/2023ctive levothyroxine (Synthroid, Levoxyl) 75 MCG tablet Take 75 mcg by mouth in the morning. Take before meals.Active Ubrogepant (Ubrelvy) 50 MG tablet Take 50 mg by mouth 1 at onset of migraine and may repeat in 2 hours no more than 2 times a day and2 times a weekActive meloxicam (Mobic) 15 MG tablet Indications:Left ear painTake 1 tablet (15 mg) by mouth Daily 30 tablet 11008/11//6Active Active Problems ProblemNoted DateDiagnosed DateMissed eeftuv3208/07/20246112Hdveqzwtxel79/14/2024 Overview (09/01/2023): Patient with previous complaints of paresthesias. 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 She reports increased paresthesias today described as numbness and throbbing which affect both the left upper and left lower extremity. MRI of the lumbar spine was unremarkable for cause. We will assess this further to evaluate for a polyneuropathy or alternative etiology that may becontributing to her symptoms. PLAN: - EMG of the LUE and LLE with nerve conduction studies and needle electrode exam to assess for a peripheral nerve process and help to differentiate between the above mentioned possible etiologies forthe patient's symptoms and explain the findings on neurological exam. This EMG/NCS study will help determine the severity of this process, determine if the process is axon loss or demyelinating in type, determine the presence of active axon loss, and help with proper localization of this process. - May consider labs at follow up pending results. Chronic migraine without aura without status migrainosus, not intractable 09/01/2023 Overview (09/01/2023): It is my impression that the patient is experiencing migraines having 20 migraine days per month. She was previously on topiramate for paresthesias although she is no longer taking this. She cannot correlate increase in migraines with the discontinuation of the topiramate though. She states that the migraines are posterior, frontal, and bitemporal and are persistent pressure. Some correlate better with a tension type headache. She does have related nausea, photo/phonophobia related. At times, she can get spots in her vision. There does not appear to be a positional component. She did have an MRI of her brain done and it was unremarkable. She has tried and failed propranolol and verapamil. Amitryptilline and venlafaxine were previously avoided due to concurrent use of duloxeine, however she is no longer taking this. Rizatriptan and Nurtec were ineffective as an abortive and sumatriptan caused palpitations. Amitriptyline was started at last visit and seems to be helpful as she reports taking Ubrelvy about 5 times per month. She reports however that she has to take a second dose to abort her migraines. - PLAN - Continue amitriptyline 25 mg at bedtime. Side effects including sedation and cardiac side effectsdiscussed and patient wishes to proceed. - Increase Ubrelvy to 100mg (samples provided today). Tension type ebbkhiio44/14/2024 Overview (09/01/2023): Patient does have a history of migraines and what seem like tension headaches. She is on tizanidineas needed. - PLAN - We will attempt to treat migraines per above Carpal tunnel syndrome on both sides09/01/2023 Overview (09/01/2023): mild right and minimal left. MIKIE (obstructive sleep apnea)09/01/2023Low back pain with left-sided sciatica 09/01/2023 Overview (09/01/2023): It is my impression that the patient was experiencing low back pain radiating down her left leg. This was affecting her sleep quality and causing severe pain with ambulation. She reported low back pain as being chronic however she reported radiating symptoms for 2 weeks prior to her last visit. Shewas ordered a Medrol dosepak at her last visit and her symptoms have since improved. MRI of the lumbar spine was unremarkable. PLAN: - Continue to monitor clinically - Continue tizanidine as needed (previously ordered by PCP - a refill was given at last visit due to the holidays) BV (bacterial vaginosis)03/10/2015Herpes infection in ([facility]) 01/31/2015 Overview (08/07/2024): Herpes diagnosis early 2014, no outbreak since first one, will give Valtrex at 36 weeks. Family History Medical HistoryRelationNameCommentsAnxiety disorderMotherLynn ReineckDepression MotherLynn ReineckDiabetesMotherLynn ReineckHyperlipidemiaMotherLynn Reineck HypertensionMotherLynn ReineckKidney diseaseMotherLynn ReineckStrokeMotherLynn ReineckThyroid diseaseMotherLynn ReineckIrritable bowel syndromeOtherBreast cancerPaternal GrandfatherFrances ZickefooseRelationNameStatusCommentsFather AliveMotherLynn ReineckAliveOtherPaternal GrandfatherFrances ZickefooseAlive Social History Tobacco UseTypesPacks/DayYears UsedDateSmoking Tobacco: FormerCigarettesPassive Smoke Exposure: NeverSmokeless Tobacco: Never Tobacco Cessation:Counseling Given: Yes Alcohol UseStandard Drinks/WeekCommentsYes0 (1 standard drink = 0.6 oz pure alcohol)OccAUDIT-CAnswerDate RecordedQ1: How often do you have a drink containing alcohol?Monthly or less09/01/2023Q2: How many drinks containing alcohol do you have on a typical day when you are drinking?1 or Q3: How often do you have six or more drinks on one occasion?Less than monthly 09/01/2023CommentsUnknownSex and Gender InformationValueDate RecordedSex Assigned at KalieTdgwbc24/31/2024 11:37 AM EDTLegal GhgViccxh55/15/2023 6:44 PM EDTGender UnsninypYurukv35/31/2024 11:37 AM EDTSexual OrientationNot on file Last Filed Vital Signs Vital SignReadingTime TakenCommentsBlood Bnunghfv568/8408/11/2024 8:03 AM EDT Bzngx732708/11/2024 8:03 AM EDTTemperature--Respiratory Rate--Oxygen Saturation-- Inhaled Oxygen Concentration--Mtweco281 kg (228 lb)08/11/2024 8:03 AM EDTHeight 170.2 cm (5' 7 )08/11/2024 8:03 AM EDTBody Mass Index35.7106 8:03 AM EDT Plan of Treatment Not on file Insurance Care Teams Team MemberRelationshipSpecialtyStart DateEnd Aldair Gomez MD [address] [place] [address] PCP - GeneralFamily Medicine07/23/22
--- OUTSIDE RECORDS SUMMARY | 2025-02-04 09:21 | XMS_ITS | Clinical Summary ---
Author Organization [facility] Address [address] [place], [place] [address] Care Team Providers Care Business Support Liaison Name Role Phone Aldair Gomez MD Unavailable [phone] Social History Tobacco UseTypesPacks/DayYears UsedDateSmoking Tobacco: Never AssessedArea Deprivation IndexAnswerDate RecordedNational Score (1-100), lower number is lower gild115012/13/2023State Score (1-10), lower number is lower gwro274 Data from: https://www.neighborhoodatlas.medicine.[facility]/. Last address used for [address] 4CommentsUnknownSex and Gender InformationValueDate RecordedSex Assigned at BirthNot on fileLegal SexFemale 11/21/2023 12:46 PM EDTGender IdentityNot on fileSexual OrientationNot on file Plan of Treatment Health MaintenanceDue DateLast DoneCommentsAnxiety Qghnseqei56/19/2012Depression Hqogelrog81/19/2012HIV Cvgzicjtc36/19/2012Hepatitis C Sydsxipvr69/19/2012 DTaP,Tdap,Td Vaccine (1 - Tdap)2012Hepatitis B Vaccine (1 of 3 - 19+ 3- dose series)2012Cervical Cancer Zumtgeekj34/19/2015HPV Vaccine (1 - 3-dose SCDM series)1Covid-19 Vaccine (1 - 2024- season)2024Influenza Vaccine (#1) Insurance Care Teams Team MemberRelationshipSpecialtyStart DateEnd Aldair Gomez MD [address] [place] [address] ReferringFamily Ycvpsoqa87/3/24
[2025-02-04 09:38] LABS: Hematocrit 41.8 % (36.0-48.0); Hemoglobin 13.2 g/dL (12.0-16.0); Immature Granulocytes Abs Auto 0.21 10^3/uL (0.00-0.03); Immature Granulocytes Pct Auto 1.9 % (0.0-0.5); Lymphocytes Absolute Auto 3.0 10^3/uL (1.2-3.8); Mean Corpuscular HGB Conc 31.6 g/dL (29.9-35.2); Mean Corpuscular Hemoglobin 26.6 pg (26.7-34.0); Mean Corpuscular Volume 84.1 fL (81.0-99.0); Platelet Count 257 10^3/uL (150-450); Red Blood Count 4.97 10^6/uL (4.20-5.40); White Blood Count 11.3 10^3/uL (4.0-11.0)
[2025-02-04 10:51] LABS: Iron 46.0 ug/dL (50.0-170.0)
[2025-02-04 10:59] LABS: Alanine Aminotransferase 23 U/L (14-59); Albumin Globulin Ratio 1.1; Albumin Level 3.5 g/dL (3.4-5.0); Alkaline Phosphatase 100 U/L (46-116); Anion Gap 8.0; Aspartate Amino Transferase 11 U/L (15-37); Blood Urea Nitrogen 11.0 mg/dL (7.0-18.0); Calcium 8.7 mg/dL (8.5-10.1); Carbon Dioxide 31.0 mmol/L (21.0-32.0); Chloride 104 mmol/L (98-107); Cholesterol 186 mg/dL (<=200); Estimated GFR (African America >60 (>=60 mL/min/1.73m^2); Estimated GFR (Non-African Ame >60 (>=60 mL/min/1.73m^2); Free T3 3.28 pg/mL (2.18-3.98); Globulin 3.2 g/dL; Glucose 99 mg/dL (74-106); HDL Cholesterol 40 mg/dL (40-60); Potassium 4.0 mmol/L (3.5-5.1); Sodium 139 mmol/L (136-145); Thyroid Stimulating Hormone 3.299 uIU/mL (0.358-3.740); Total Protein 6.7 g/dL (6.4-8.2); Triglycerides 251 mg/dL (<=150); VLDL CHOLESTEROL 50.2 mg/dL
== END 2025-02-04 09:16 | disposition home or self-care (01) ==
LOC: LAB 09:16
PROVIDERS: PCP Family Medicine; Visit Provider Family Medicine
DX: Z00.00 Encounter for general adult medical examination without abnormal findings (principal)
CPT/HCPCS: 36415; 80053; 80061; 83036; 83525; 83540; 84436; 84443; 84481; 85025

== ENCOUNTER 2025-02-12 10:02 | Outpatient (OUT) | payer OTHER, SELFPAY ==
--- OUTSIDE RECORDS SUMMARY | 2024-08-05 08:00 | XMS_ITS ---
Author Organization The [facility] in [place] Address [address] [place] [address] Care Team Providers Care Fire Protection Engineer Name Role Phone Jered Gomez Primary Care Provider REASON FOR VISIT diet check Encounters Encounter Location Date Provider Diagnosis [facility] [address] [place] [address] 08/05/2024 Jered Gomez Plan Of Treatment No Information Progress Notes * Mariangel AUSTIN LDOB: 4 (29 yo F)Acc No.[id number]:08/05/2024 UNLOCKED PROGRESS NOTE Progress Note Patient: Mariangel DUNNE :?Aldair Gomez (TTC), MDDOB:1995???Age: 28 Y???Sex:FemaleDate:08/05/2024Phone:[phone]:[address] [facility] Subjective: * Chief Complaints: * 1 . Diet check. * Medical History: Objective: * Vitals: Assessment: Plan: * Treatment: * * Electronic signature of Jered Gomez MD, [id number] on 02/12/2025 at 10:06 AM EST Sign off status: PendingVisit Status:?CANC (Cancelled) * Provider: Valerie Gomez MD (TTC) Date: 0 08/05/2024 Generated for Printing/Faxing/eTransmitting on:?02/12/2025 10:06 AM EST
--- OUTSIDE RECORDS SUMMARY | 2024-08-10 10:15 | XMS_ITS ---
Author Organization The [facility] in [place] Address [address] [place] [address] Care Team Providers Care Net Front End Developer Name Role Phone Jered Gomez Primary Care Provider REASON FOR VISIT diet check Encounters Encounter Location Date Provider Diagnosis [facility] [address] [place] [address] 08/10/2024 Jered Gomez Plan Of Treatment No Information Progress Notes * Mariangel AUSTIN LDOB: 4 (29 yo F)Acc No.[id number]:08/10/2024 UNLOCKED PROGRESS NOTE Progress Note Patient: Mariangel DUNNE :?Aldair Gomez (TTC), MDDOB:1995???Age: 28 Y???Sex:FemaleDate:08/10/2024Phone:[phone]:[address] [facility] Subjective: * Chief Complaints: * 1 . Diet check. * Medical History: Objective: * Vitals: Assessment: Plan: * Treatment: * * Electronic signature of Jered Gomez MD, [id number] on 02/12/2025 at 10:06 AM EST Sign off status: PendingVisit Status:?CANC (Cancelled) * Provider: Valerie Gomez MD (TTC) Date: 0 08/10/2024 Generated for Printing/Faxing/eTransmitting on:?02/12/2025 10:06 AM EST
--- OUTSIDE RECORDS SUMMARY | 2025-02-04 07:31 | XMS_ITS ---
Author Organization [facility] [place] Address [address] [place] [address] Care Team Providers Care Student Truck Driver Name Role Phone Jered Gomez Primary Care Provider REASON FOR VISIT labs Medications Medication SIG (Take, Route, Frequency, Duration) Notes Start Date End Date Status Ferrous Sulfate 325 (65 Fe) MG 1 tablet Orally t wice a day; Duration: 30 days 5Active Problems Problem Type SNOMED Code ICD Code Onset Dates Problem Status W/U Status Risk Notes Problem Laboratory test resu lt abnormal (773671477) Abnormal laboratory test (R89.9) ActiveconfirmedProblemMixed hyperlipidemia (968113208)Elevated triglycerides with high cholesterol (E78.2)Activeconfirmed Encounters Encounter Location Date Provider Diagnosis [facility] [address] [place] [address] 02/04/2025 Jered Gomez Abnormal laboratory test R89.9 Assessments Encounter Date Diagnosis (ICD Code) Assessment Notes Treatment Notes Treatment Clinical Notes Section Notes 02/04/2025 Abnormal laboratory test (ICD-10 - R89.9) Plan Of Treatment Medication Medication Name Sig Start Date Stop Date Notes Ferrous Sulfate 325 (65 Fe) MG 1 tablet Orally twice a day; Duration: 30 days 02/04/2025 Pending Test Test Name Order Date FLOW CYTOMETRY 02/04/2025 CBC W/AUTO DIFF 02/04/2025 LDH 02/04/2025 Progress Notes * Mariangel AUSTIN LDOB:[birth year] (29 yo F)Acc No.[id number]:02/04/2025 Patient:?Mariangel AUSTIN :1995???Age:29 Y???Sex:FemalePhone:[phone] Address:[address] [place] [address], [address] * Refills Start Ferrous Sulfate Tablet, 325 (65 Fe) MG, Orally, 60 Tablet, 1 tablet, twice a day, 30 days, Refills=11 Subjective: * Chief Complaints: * L abs * Medical History: * Surgical History: * Hospitalization/Major Diagno stic Procedure: * Medications: Objective: * Vitals: * Physical Examination: ??? Assessment: * Assessment: 1.?Abnormal laboratory test - R89.9 (Primary)??? Plan: * Treatment: ?LAB: FLOW CYTOMETRY ?LAB: CBC W/AUTO DIFF ?LAB: LDH2.?Others? Start Ferrous Sulfate Tablet, 325 (65 Fe) MG, 1 tablet, Orally, twice a day, 30 days, 60 Tablet, Refills 11.?? * Procedure Codes: * true * Date:?Generated for Printing/Faxing/eTransmitting on:?02/12/2025 10:06 AM EST
--- OUTSIDE RECORDS SUMMARY | 2025-02-05 08:00 | XMS_ITS ---
Author Organization [facility] in [place] Address [address] [place] [address] Care Team Providers Care Mail Processor Name Role Phone Jered Gomez Primary Care Provider Allergies Allergen (clinical drug ingredient) Drug/Non Drug Allergy documented on EMR Reaction Allergy Type Onset Date Status Latex Latex rash Allergy Active Results Component Value Reference Range Notes COVID-19, Flu A+B IH (Not ye t reviewed by provider) Interpretation: Performing Lab: Notes/Report: COVID NEG FLU ANEGFLU BNEGControlPOS REASON FOR VISIT chest when coughing and deep breath, migrane since last night, cough on ATB and prednisone not helping not getting any better, did labs yesterday Medications Medication SIG (Take, Route, Frequency, Duration) Notes Start Date End Date Status Trelegy Ellipta 200-62.5-25 MCG/ACT 1 pu ff Inhalation Once a day; Duration: 30 days ActivePristiq 100 MG1 tablet Orally Once a day; Duration: 30 days12/16/2024 ActivepredniSONE 20 MG2 tablets Orally Once a day; Duration: 5 days01/28/2025 ActivetiZANidine HCl 4 MGTAKE 2 TABLETS BY MOUTH EVERYDAY AT BEDTIME NEEDED; Duration: 30ActiveProtonix 40 MG1 tablet Orally Once a day; Duration: 30 days 5ActiveOndansetron 4 MG1 tablet on the tongue and allow to dissolve Orally Q 6 hours PRN; Duration: 3 daysActiveNebulizer Mask and Tubing-Adult -Use Dx: Asthma as directed; Duration: 365 daysActiveNebulizer CompressorUse machine daily with nebulizer solutionNEBULIZER MACHINE. Dx. [id number] Meloxicam 15 MGOral; Duration: 30 DaysActiveLevothyroxine Sodium 75 MCGTAKE 1 TABLET BY MOUTH EVERY DAY IN THE MORNING ON AN EMPTY STOMACH FOR 30 DAYS; Duration: 90ActiveKetoconazole 2 %1 application Externally bid; Duration: 14 days5ActivelevoFLOXacin 750 MG1 tablet Orally Once a day; Duration: 10 day(s)5ActivehydrOXYzine HCl 25 MG1 tablet as needed Orally qid; Duration: 10 days5ActiveFerrous Sulfate 325 (65 Fe) MG1 tablet Orally twice a day; Duration: 30 days5ActiveDoxycycline Monohydrate 100 MG1 tablet Orally bid; Duration: 10 days5ActiveBenzonatate 200 MG1 capsule Orally Three times a day; Duration: 7 days5ActiveUbrelvy 100 MGTAKE 1 TABLET BY MOUTH MAY TAKE 2ND DOSE AT LEAST 2 HRS AFTER NEEDED ONCE DAILY; Duration: 30PRNActiveWellbutrin XL 300 MG1 tablet in the morning Orally Once a day; Duration: 30 days5ActiveAlbuterol Sulfate HFA 108 (90 Base) MCG/ACTINHALE 2 PUFFS INTO THE LUNGS EVERY 4 HOURS NEEDED FOR 30 DAYS; Duration: 17ActiveAlbuterol Sulfate (2.5 MG/3ML) 0.083%3 mL as needed Inhalation every 6 hrs; Duration: 30 days03/04/2023ctive Social History Tobacco Use: Social History Observation Description Date Details (start date - stop date) Former Smoker NA - 05/28/2016 Tobacco Use/Smoking Question Answer Notes Patient is a former smoker When did you stop smoking?05/28/2016 Vital Signs Weight 246.6 lbs 02/05/2025 Height 67 in 02/05/2025 Blood pressure systolic 118 mm Hg 02/06/20 25 Blood pressure diastolic 78 mm Hg 025 Temperature 97.6 degrees Fahrenheit 02/06/20 25 BMI 38.62 kg/m2 02/05/2025 Encounters Encounter Location Date Provider Diagnosis [facility] [address] [place] [address] 02/05/2025 Jered Hoy Cough R05.9 and Acut e bronchitis, unspecified organism J20.9 Assessments Encounter Date Diagnosis (ICD Code) Assessment Notes Treatment Notes Treatment Clinical Notes Section Notes 02/05/2025 Cough (ICD-10 - R05.9) 02/05/2025ute bronchitis, unspecified organism (ICD-10 - J20.9)Rest and drink more liquids, especially water. You may use a humidifier or vaporizer to help keep the drainage moist. Pqdl-ksd-kynahbd Nasal Saline may help the stuffy and runny nose. Use Ibuprofen and or Tylenol as needed for fever, chills, body aches or pain. Children 5 years old should not be given qoop-bpx-mywrlfl cough and cold medications such as guaifenesin and dextromethorphan. If you're over age 5, you may try oami-aoq-rdogcpo cold medications such as guaifenesin and dextromethorphan, or multi-symptom cold reliever such as Dayquil to help reduce the symptoms. Antibiotics have been prescribed. You should take these until completed and follow the directions. Antibiotics can sometimescause upset stomach, and in rare cases, serious allergic reactions or serious gastrointestinal problems. If you start having severe abdominal pain, severe vomiting, or bloody diarrhea, you should be reevaluated by your physician or urgent care immediately. Follow up with your Primary Care Provider or return to clinic if symptoms do not improve within 3-5 days. If you develop severe symptoms such as shortness of breath, repeated vomiting, coughing up blood, or chest pain you should go to the emergency room or call 911 Plan Of Treatment Medication Medication Name Sig Start Date Stop Date Notes levoFLOXacin 750 MG 1 tablet Orally Once a day; Durati on: 10 day(s) 02/05/2025 Benzonatate 200 MG1 capsule Orally Three times a day; Duration: 7 days02/05/2025 Treatment Notes Assessment Notes Acute bronchitis, unspecified organism R est and drink more liquids, especially water. You may use a humidifier or vaporizer to help keep the drainage moist. Ljdr-eet-mhnisjf Nasal Saline may help the stuffy and runny nose. Use Ibuprofen and or Tylenol as needed for fever, chills, body aches or pain. Children 5 years old should not be given weot-ciq-yveczdc cough and cold medications such as guaifenesin and dextromethorphan. If you're over age 5, you may try zyep-hto-xhukbtn cold medications such as guaifenesin and dextromethorphan, or multi-symptom cold reliever such as Dayquil to help reduce the symptoms. Antibiotics have been prescribed. You should take these until completed and follow the directions. Antibiotics can sometimes cause upset stomach, and in rare cases, serious allergic reactions or serious gastrointestinal problems. If you start having severe abdominal pain, severe vomiting, or bloody diarrhea, you should be reevaluated by your physician or urgent care immediately. Follow up with your Primary Care Provider or return to clinic if symptoms do not improve within 3-5 days. If you develop severe symptoms such as shortness of breath, repeated vomiting, coughing up blood, or chest pain you should go to the emergency room or call 911 Pending Test Test Name Order Date COVID-, Flu A+B IH 02/05/2025 Next Appt Details Follow Up: 3-5 days if not i mproving, Reason: Medications Administered Medication Instructions Date of Administration Dosage Notes methylPREDNISolone Acetate mgKetorolac Vjlpivkkeoop53/19/953038 mg Progress Notes * VALENTINA, Mariangel LDOB: 4 (29 yo F)Acc No.[id number]:02/05/2025 Progress Note Patient: Mariangel DUNNE :?Aldair Gomez ([facility]), MDDOB:1995???Age: 29 Y???Sex:FemaleDate:02/05/2025Phone:[phone]:[address] [place], [place]Check In:12:58 PM ESTCheck Out:01:40 PM EST Subjective: * Chief Complaints: * C hest when coughing and deep breathMigrane since last nightcough on ATB and prednisone not helping not getting any betterDid labs yesterday * HPI: ???General:? Cpougpersiting - meds not hdleping getting pain wtih deep brething ant chest - hjurts to touch. ???Bronchitis:? The patient complains of symptoms of bronchitis. The symptoms have been present for 1-2 days. The symptoms are moderate. The patient has not been exposed to sick contacts. Symptomatic treatment has included OTC medication. Associated symptoms include nasal congestion, postnasal drainage, congested ears, cough, fever, chills, body aches. * ROS: ???ENT:?Ear pain?denies.?Hoarseness?denies.?Cardiovascular:?Edema?denies.?Palpitations?denies.?Respiratory:?Comments?See HPI for details.?Gastrointestinal:?Abdominal pain?denies.?Diarrhea?denies.?Nausea?denies.?Skin:?Rash?denies.? * Active Problem List N94.6 Dysmenorrhea Modified On:05/11/2022 Status:myozeolcyV27.33Obstructive sleep apnea Modified On:05/31/2023 Status:tckyhoctsJ78.42Lumbago with sciatica, left side Modified On:05/11/2022 Status:wvocrpuydR58.30Sleep apnea Modified On:05/11/2022 Status:iyvkanxvuN41.2Paresthesia Modified On:05/11/2022 Status:htjkxymgjS53.00Hypercholesteremia Modified On:05/11/2022 Status:rrbplhmzbS51.909Migraine Modified On:01/23/2023 Status:dwirdmqaeG61.2Hypoglycemia Modified On:05/11/2022 Status:udgdfcryeX44.00Insomnia Modified On:05/11/2022 Status:hsgqfmignM04.9Depression Modified On:05/11/2022 Status:osgweaotsR99.33Obstructive sleep apnea syndrome Modified On:05/30/2022 Status:qnhpfuhokB77.909Asthma Modified On:03/04/2023U Status:wedsrinezT72.9Hypothyroid Modified On:09/02/2023 Status:lnjfogbxhY04.09DOE (dyspnea on exertion) Modified On:11/04/2023 Status:rvitaedqeW41.0Acute vaginitis Modified On:11/26/2023 Status:adceewveiR30.9Anxiety Modified On:11/26/2023 Status:rxeqsbjcsW01.00Well adult Modified On:05/01/2024U Status:xcxecxxkgS84.1Hot flashes Modified On:08/19/2024 Status:irzabbqghP29.40Ganglion cyst Modified On:08/19/2024 Status:rydoozztkZ95.2Elevated triglycerides with high cholesterol Modified On:02/04/2025 Status:zijkrmedyO60.9Abnormal laboratory test Modified On:02/04/2025 Status:confirmed * Medical History: * Surgical History: L aproscopic Cholecystectomy & A 2005Carpal Tunnel Release- Bilateral 2002Right wrist injection 2023 * Hospitalization/Major Diagno stic Procedure: D enies Past Hospitalization * Family History: F ather: unknown. M other: alive, diagnosed with Heart Disease, Diabetes, Kidney Disease.?Brother(s): alive. 1 brother(s) . 1 daughter(s) - healthy. . * Social History: ???Tobacco Use:?Tobacco Use/Smoking?Patient is a?former smoker ?When did you stop smoking??05/28/2016 * Medications: T akingAlbuterol Sulfate (2.5 MG/3ML) 0.083% Nebulization Solution 3 mL as needed Inhalation every 6 hrs Albuterol Sulfate HFA 108 (90 Base) MCG/ACT Aerosol Solution INHALE 2 PUFFS INTO THE LUNGS EVERY 4 HOURS NEEDED FOR 30 DAYS Doxycycline Monohydrate 100 MG Tablet 1 tablet Orally bid Ferrous Sulfate 325 (65 Fe) MG Tablet 1 tablet Orally twice a day hydrOXYzine HCl 25 MG Tablet 1 tablet as needed Orally qid Ketoconazole 2 % Cream 1 application Externally bid Levothyroxine Sodium 75 MCG Tablet TAKE 1 TABLET BY MOUTH EVERY DAY IN THE MORNING ON AN EMPTY STOMACH FOR 30 DAYS Meloxicam 15 MG Tablet Oral Nebulizer Compressor Use machine daily with nebulizer solution , Notes to Pharmacist: NEBULIZER MACHINE. Dx. J45.909Nebulizer Mask and Tubing-Adult - miscellaneous Use Dx: Asthma as directed Ondansetron 4 MG Tablet Disintegrating 1 tablet on the tongue and allow to dissolve Orally Q 6 hours PRN predniSONE 20 MG Tablet 2 tablets Orally Once a day Pristiq(Desvenlafaxine Succinate ER) 100 MG Tablet Extended Release 24 Hour 1 tablet Orally Once a day Protonix(Pantoprazole Sodium) 40 MG Tablet Delayed Release 1 tablet Orally Once a day tiZANidine HCl 4 MG Tablet TAKE 2 TABLETS BY MOUTH EVERYDAY AT BEDTIME NEEDED Trelegy Ellipta(Ylktmzscdcr-Izxgbbtux-Xgcbtz) 200-62.5-25 MCG/ACT Aerosol Powder Breath Activated 1 puff Inhalation Once a day Ubrelvy(Ubrogepant) 100 MG Tablet TAKE 1 TABLET BY MOUTH MAY TAKE 2ND DOSE AT LEAST 2 HRS AFTER NEEDED ONCE DAILY , Notes to Pharmacist: PRNWellbutrin XL(buPROPion HCl ER (XL)) 300 MG Tablet Extended Release 24 Hour 1 tablet in the morning Orally Once a day Medication List reviewed and reconciled with the patientTaking Albuterol Sulfate (2.5 MG/3ML) 0.083% Nebulization Solution 3 mL as needed Inhalation every 6 hrs Taking Albuterol Sulfate HFA 108 (90 Base) MCG/ACT Aerosol Solution INHALE 2 PUFFS INTO THE LUNGS EVERY 4 HOURS NEEDED FOR 30 DAYS Taking Doxycycline Monohydrate 100 MG Tablet 1 tablet Orally bid Taking Ferrous Sulfate 325 (65 Fe) MG Tablet 1 tablet Orally twice a day Taking hydrOXYzine HCl 25 MG Tablet 1 tablet as needed Orally qid Taking Ketoconazole 2 % Cream 1 application Externally bid Taking Levothyroxine Sodium 75 MCG Tablet TAKE 1 TABLET BY MOUTH EVERY DAY IN THE MORNING ON AN EMPTY STOMACH FOR 30 DAYS Taking Meloxicam 15 MG Tablet Oral Taking Nebulizer Compressor Use machine daily with nebulizer solution , Notes to Pharmacist: NEBULIZER MACHINE. Dx. J45.909Taking Nebulizer Mask and Tubing-Adult - miscellaneous Use Dx: Asthma as directed Taking Ondansetron 4 MG Tablet Disintegrating 1 tablet on the tongue and allow to dissolve Orally Q 6 hours PRN Taking predniSONE 20 MG Tablet 2 tablets Orally Once a day Taking Pristiq(Desvenlafaxine Succinate ER) 100 MG Tablet Extended Release 24 Hour 1 tablet Orally Once a day Taking Protonix(Pantoprazole Sodium) 40 MG Tablet Delayed Release 1 tablet Orally Once a day Taking tiZANidine HCl 4 MG Tablet TAKE 2 TABLETS BY MOUTH EVERYDAY AT BEDTIME NEEDED Taking Trelegy Ellipta(Lhzaqcqzfpb-Rpgvwbaje-Apvcty) 200-62.5-25 MCG/ACT Aerosol Powder Breath Activated 1 puff Inhalation Once a day Taking Ubrelvy(Ubrogepant) 100 MG Tablet TAKE 1 TABLET BY MOUTH MAY TAKE 2ND DOSE AT LEAST 2 HRS AFTER NEEDED ONCE DAILY , Notes to Pharmacist: PRNTaking Wellbutrin XL(buPROPion HCl ER (XL)) 300 MG Tablet Extended Release 24 Hour 1 tablet in the morning Orally Once a day Medication List reviewed and reconciled with the patient * Allergies: L atex: conor[Allergies Verified] Objective: * Vitals: W t:246.6lbs, Ht: 67 in, BP:118/78mm Hg, Temp:97.6F, BMI:38.62Index, Ht-cm: 170.18 cm, Wt-k.86 kg. * Examination: ???General Examination: ?GENERAL APPEARANCE:? in no acute distress.?EYES:? EOMI.?EARS:? auditory canal clear, middle ear effusion noted. ?NOSE:? clear discharge, turbinates pale and swollen.?ORAL CAVITY:? mucosa moist.?THROAT:? no erythema, post-nasal drainage noted.?NECK:? neck supple, no thyromegaly.?LYMPH NODES:?no cervical adenopathy.?LUNGS:? unlabored, clear to auscultation bilaterally.?CARDIO:?no murmurs, regular rate and rhythm.?ABDOMEN:? bowel sounds present, no organomegaly .? ?? Assessment: * Assessment: 1.?Acute bronchitis, unspecified organism - J20.9 (Primary)???2.?Cough - R0 5.9??? Plan: * Treatment: Start levoFLOXacin Tablet, 750 MG, 1 tablet, Orally, Once a day, 10 day(s), 10;?Start Benzonatate Capsule, 200 MG, 1 capsule, Orally, Three times a day, 7 days, 20 Capsule.?? Notes:Rest and drink more liquids, especially water. You may use a humidifier or vaporizer to help keep the drainage moist. Cwrj-qxm-mvybhxf Nasal Saline may help the stuffy and runny nose. Use Ibuprofen and or Tylenol as needed for fever, chills, body aches or pain. Children 5 years old should not be given ayfr-cbj-dzbkhdk cough and cold medications such as guaifenesin and dextromethorphan. If you're over age 5, you may try prgh-ijy-gyohgby cold medications such as guaifenesin and dextromethorphan, or multi-symptom cold reliever such as Dayquil to help reduce the symptoms. Antibiotics have been pre scribed. You should take these until completed and follow the directions. Antibiotics can sometimescause upset stomach, and in rare cases, serious allergic reactions or serious gastrointestinal problems. If you start having severe abdominal pain, severe vomiting, or bloody diarrhea, you should be r eevaluated by your physician or urgent care immediately. Follow up with your Primary Care Provider or return to clinic if symptoms do not improve within 3-5 days. If you develop severe symptoms such as shortness of breath, repeated vomiting, coughing up blood, or chest pain you should go to the emergency room or call 911??2.?Cough?LAB: COVID-19, Flu A+B IH (Collection Date & Time - 02/05/2025) * Therapeutic Injections: Ketorolac Tromethamine : 60 mg (Route: Intramuscular) given by TRAMAINE Hamm on left deltoid (Acute bronchitis, unspecified organism, Cough)??? Methylprednisolone Acetate 40mg/mL : 120 mg (Route: Intramuscular) given by TRAMAINE Hamm on right deltoid (Acute bronchitis, unspecified organism, Cough) * Labs: * L ab: COVID-19, Flu A+B IH (Collection Date & Time - 02/05/2025) ?ValueReference Range?COVIDNEG * F NINOSKA A NEG * F NINOSKA B NEG * C ontrol POS * Procedure Codes: 8 7636 SARSCOV2 & INF A&B AMP PRB, [place]: Q[place] [address] THERAP.INJ. OF MED. INTRAMUSCULAR OR [id number] Injection, methylprednisolone acetate, 1 mg, Units: 120.00 J1885 TORADOL, PER 15 MG, Units: 4.00 , Modifiers: JZ * Preventive Medicine: ??Screenings/Counseling:?BMI ACTION PLAN?Above Normal BMI Follow-up?Dietary management education, guidance, and counseling * Follow Up: 3 -5 days if not improving * * Sign off status: CompletedVisit Status:?CHK (Check Out) true * Provider: Valerie Gomez ([facility])MD Date: 1 04/08/2024 Generated for Printing/Faxing/eTransmitting on:?02/12/2025 10:06 AM EST History and Physical Notes * HPI (History of Present Illness) CategorySub-CategoryDetailNotesCategory NotesGeneralCpougpersiting - meds not hdleping getting pain wtih deep brething ant chest - hjurts to touch Examination CategorySub-CategoryDetailNotesCategory NotesGeneral ExaminationGENERAL APPEARANCE:in no acute distressEYES:EOMIEARS:auditory canal clear, middle ear effusion notedNOSE:clear discharge, turbinates pale and swollenTHROAT:no erythema, post-nasal drainage notedNECK:neck supple, no thyromegalyCARDIO:no murmurs, regular rate and rhythmLUNGS:unlabored, clear to auscultation bilaterallyABDOMEN:bowel sounds present, no organomegalyLYMPH NODES:no cervical adenopathyORAL CAVITY:mucosa moist
--- OUTSIDE RECORDS SUMMARY | 2025-02-12 10:06 | XMS_ITS | Clinical Summary ---
Author Organization [facility] Address [address] [place] [address] Care Team Providers Care Wool Shearer Name Role Phone Aldair Gomez MD Primary Care Provider [phone] Allergies Active AllergyReactionsCriticalityNoted CbpoEvhhlclrYbzuzAmntFns82/26/2015 Medications MedicationSigDispense QuantityRefillsLast FilledStart DateEnd DateStatus albuterol HFA 90 mcg/act inhaler Inhale 2 puffs every 4 (four) hours if bewnnn0204/16/2023ctive Stiolto Respimat 2.5-2.5 MCG/ACT aerosol solution inhaler [...] tablet 11008/11//6Active Active Problems ProblemNoted DateDiagnosed DateMissed kzfdny4708/07/20247936Trmqwcibzby63/14/2024 Overview (09/01/2023): Patient with previous complaints of [...] to 100mg (samples provided today). Tension type szslyqsh20/14/2024 Overview (09/01/2023): Patient does have a history [...] the holidays) BV (bacterial vaginosis)03/10/2015Herpes infection in ([facility]) 01/31/2015 Overview (08/07/2024): Herpes diagnosis early 2014, [...] 09/01/2023CommentsUnknownSex and Gender InformationValueDate RecordedSex Assigned at AynshXpiwej23/31/2024 11:37 AM EDTLegal TxxPvqayo12/15/2023 6:44 PM EDTGender UhrabiayJzvumv00/31/2024 11:37 AM EDTSexual OrientationNot on file Last Filed Vital Signs Vital SignReadingTime TakenCommentsBlood Oycruqwa306/8408/11/2024 8:03 AM EDT Gjcpc827908/11/2024 8:03 AM EDTTemperature--Respiratory Rate--Oxygen Saturation-- Inhaled Oxygen Concentration--Nsrnzq704 kg (228 lb)08/11/2024 8:03 AM EDTHeight 170.2 cm (5' 7 )08/11/2024 8:03 AM EDTBody Mass Index35.7106 8:03 AM EDT Plan of Treatment Not on file Insurance Care Teams Team MemberRelationshipSpecialtyStart DateEnd Aldair Gomez MD [address] [place] [address] PCP - GeneralFamily Medicine07/23/22
--- OUTSIDE RECORDS SUMMARY | 2025-02-12 10:06 | XMS_ITS | Clinical Summary ---
Author Organization [facility] Address [address] [place], [place] [address] Care Team Providers Care Pie Filling Mixer Name Role Phone Aldair Gomez MD Unavailable [phone] Social History Tobacco UseTypesPacks/DayYears UsedDateSmoking Tobacco: Never AssessedArea Deprivation IndexAnswerDate RecordedNational Score (1-100), lower number is lower uxzq306712/13/2023State Score (1-10), lower number is lower jaot615 Data from: https://www.neighborhoodatlas.medicine.[facility]/. Last address used for [address] 4CommentsUnknownSex and Gender InformationValueDate RecordedSex Assigned at BirthNot on fileLegal SexFemale 11/21/2023 12:46 PM EDTGender IdentityNot on fileSexual OrientationNot on file Plan of Treatment Health MaintenanceDue DateLast DoneCommentsAnxiety Ughbucsuw14/19/2012Depression Irmwlwnex48/19/2012HIV Zuxagxrsk79/19/2012Hepatitis C Kgusfplmq45/19/2012 DTaP,Tdap,Td Vaccine (1 - Tdap)2012Hepatitis B Vaccine (1 of 3 - 19+ 3- dose series)2012Cervical Cancer Bflzlnlls29/19/2015HPV Vaccine (1 - 3-dose SCDM series)1Covid-19 Vaccine (1 - season)2024Influenza Vaccine (#1) Insurance Care Teams Team MemberRelationshipSpecialtyStart DateEnd Aldair Gomez MD [address] [place] [address] ReferringFamily Kujdghan39/3/24
--- OUTSIDE RECORDS SUMMARY | 2025-02-12 10:06 | XMS_ITS | Clinical Summary ---
Author Organization [facility] Address [address], [address] [place] [address] Care Team Providers Care Owner Spa Director Name Role Phone Aldair Gomez MD Primary Care Provider [phone] Allergies Active AllergyReactionsCriticalityNoted CurvPcyzzhrmUqcdaArfySpx69/26/2015 Medications MedicationSigDispense QuantityRefillsLast FilledStart DateEnd DateStatus Tdnkuzpz-Vtp-Qa-FA ( VITAMINS) 0.8 MG TABS Indications:Pelvic pain affecting pregnancyTake 1 tablet by mouth daily 60 tablet ctive ondansetron (ZOFRAN-ODT) 4 MG disintegrating tablet 10/15/2022ctive albuterol sulfate HFA (PROVENTIL;VENTOLIN;PROAIR) 108 (90 Base) MCG/ACT inhaler INHALE 2 PUFFS INTO THE LUNGS USING INHALER EVERY 4 HOURS XUCVVG9910/12/2022 Active citalopram (CELEXA) 20 MG tablet Take [...] 12/30/14 T dap: GBS: Herpes infection in eqkiaiyjx92/14/2015 Overview (01/31/2015): Herpes diagnosis early 2014, no outbreak since first one, will give Valtrex at 36 weeks. Immunizations ImmunizationAdministration DatesNext DueInfluenza Virus Auiivvo9601/10/2015 Family History Medical HistoryRelationNameCommentsHeart DiseaseFatherDiabetesMotherAsthmaNeg Hx Breast [...] alcohol)CommentsNoSex and Gender InformationValueDate RecordedSex Assigned at IjwydWlljln73/31/2023 4:47 PM EDTLegal HisJmgpgb64/26/2015 4:40 PM EDTGender GtzwpbqgSzhlkg73/31/2023 4:47 PM EDTSexual OrientationStraight 12/18/2022 4:47 PM EDT Last Filed Vital Signs Vital SignReadingTime TakenCommentsBlood Fwyaepux801/7611 9:22 AM EST Dlxfy615312/26/2022 9:22 AM CIDLpchybpltum03.8 ??C (98.2 ??F)12/19/2022 9:13 AM EDTRespiratory Hqao182702/18/2022 9:13 AM EDTOxygen Tckkjddpuc52%01/28/2015 9:49 PM ESTInhaled Oxygen Concentration--Rmftsx053 kg (227 lb)12/26/2022 9:22 AM EST Hhddod437.2 cm (5' 7 )12/26/2022 9:22 AM ESTBody Mass Index35.5512/26/2022 9:22 AM EST Plan of Treatment Health MaintenanceDue DateLast DoneCommentsDepression Fahfkk0909/05/2005Varicella vaccine (1 of 2 - 13+ 2-dose series)2006Hepatitis C obhrow5809/06/2011 DTaP/Tdap/Td vaccine (1 - Tdap)2012Hepatitis B vaccine (2 of 3 - 19+ 3- dose series)Pap smearCervical cancer vvaxds7309/06/2023HPV (without or with Pap)09/06/2023Flu vaccine (#1)09/18/2024 01/10/2015COVID-19 Vaccine (2024- season)HIV screen Nrbrdddjn33/13/2015HPV vaccine (No Doses Required)CompletedHepatitis A vaccine Aged [...] DiagnosisCommentsPAP SMEARRoutine 01/31/2015 12:00 AM EST HIV KOJNVWDyzkiwe41/13/2015 9:44 AM EST Irregular menses from Last 3 Months or Most Recently Relevant to Health Maintenance Results * PAP SMEAR (01/31/2015 12:00 AM EST)Specimen (Source)Anatomical Location / LateralityCollection Method / VolumeCollection TimeReceived Time01/31/2015 02/01/2015 10:16 AM EST Narrative [facility] - 02/03/2015 4:26 PM EST [facility] ? [address] ? [place], [place] ??[address] ? . [phone] Department of Pathology CYTOLOGY PAP REPORT Patient Name: ??SMALL, MARIANGEL L ? Accession No: ??[id number] GENERAL CATEGORIZATION: Negative for Intraepithelial Lesion or Malignancy INTERPRETATION/RESULTS: Shift in vaginal marshall suggestive of bacterial vaginosis. SPECIMEN ADEQUACY: Satisfactory for Evaluation. ??Endocervical cells/transformation zone component present. HPV High Risk Test: Specimen: ?? THINPREP LIQUID BASE IMAGED DIAGNOSTIC, CERVICAL ENDOCERVICAL History: ?? No Prior Abnormal Smear: ? No CPT: Technical: ??52521 X1 Case reviewed at [place], [place] Our Cytology Laboratory uses the ThinPrep Pain Medicine Physician to automatically screen all ThinPrep Pap smears. ??The ThinPrep Pain Medicine Physician is approved by the FDA for this purpose, and enables our laboratory to apply a single corporate quality assurance manager standard on these Pap smears. ??Upon initial screening of cases, this instrument identifies cases requiring additional manual review or additional corporate quality assurance manager rescreening. Cervical cytology is a screening test [...] 1of 1 Authorizing ProviderResult TypeResult StatusLeonor Seaman WEDDING MAKEUP ARTIST - CNM PATHOLOGY/CYTOLOGY ORDERABLESEdited Result - FinalPerforming OrganizationAddress City/State/ZIP CodePhone Number [facility] [address] [place] [address], [facility] [phone] * HIV Screen (12/31/2014 9:44 AM EST)ComponentValueRef RangeTest MethodAnalysis TimePerformed AtPathologist SignatureHIV-1/HIV-2 QmDjq-gznzvinvRau-vdolkixa 01/03/2015 8:18 AM ESTSWOH [facility] LABSpecimen (Source)Anatomical Location / LateralityCollection Method / VolumeCollection TimeReceived TimeBLOOD SPECIMEN / Wtuhxkp3212/31/2014 9:44 AM EST12/31/2014 6:32 PM EST Narrative Authorizing ProviderResult TypeResult StatusCararmaan Miranda MDIMMUNOLOGY ORDERABLESFinal ResultPerforming OrganizationAddressCity/State/ZIP CodePhone Number [facility] [address] [place] [address] from Last 3 Months or Most Recently Relevant to Health Maintenance Insurance * Guarantor: Mariangel Austin TypeRelation to PatientDate of BirthPhone Billing AddressN[facility] - Personal/FamilySelf 1995 [address] [place] [address] Care Teams Team MemberRelationshipSpecialtyStart DateEnd Date Aldair Gomez MD [address] [place] [address] PCP - GeneralFamily Ahxswtio77/2/23
--- OUTSIDE RECORDS SUMMARY | 2025-02-12 10:06 | XMS_ITS | Clinical Summary ---
Author Organization [facility] Address [address] [place] [address] Phone Care Team Providers Care Communications Media Professor Name Role Phone Unavailable Primary Care Provider Unavailabl e Social History Tobacco UseTypesPacks/DayYears UsedDateSmoking Tobacco: Never Assessed CommentsNoSex and Gender InformationValueDate RecordedSex Assigned at BirthNot on fileLegal BnzZhobsr95/11/2023 11:22 AM EDTGender IdentityNot on fileSexual OrientationNot on file Plan of Treatment Health MaintenanceDue DateLast DoneCommentsHIV Jtefmrnwi85/19/1994Lipid Panel 1993Yearly Adult Bevtnjmv85/19/1994MMR Vaccines (1 of 1 - Standard series) 1994Hepatitis C Meywfmguy42/19/2012Hepatitis B Vaccines (1 of 3 - 19+ 3- dose series)2012Cervical Cancer Qtbxdagxi45/19/2015HPV/Crxqhq0909/05/2014Pap Smear2014DTaP/Tdap/Td Vaccines (1 - Tdap)09/06/2015HPV Vaccines (1 - 3- dose standard series)2020OVID-19 Vaccine (1 - 2024- season)2024 Influenza Vaccine (#1)2024Zoster Vaccines (1 of 2)09/06/2043HIB Vaccines Aged OutNo longer eligible based on patient's age to complete this topic Hepatitis A VaccinesAged OutNo longer eligible based on patient's age to complete this topicIPV VaccinesAged OutNo longer eligible based on patient's age to complete this topicMeningococcal VaccineAged OutNo longer eligible based on patient's age to complete this topicPneumococcal Vaccine: Pediatrics and At-Risk Adult PatientsAged OutNo longer eligible based on patient's age to complete this topicRotavirus VaccinesAged OutNo longer eligible based on patient's age to complete this topic Insurance
--- OUTSIDE RECORDS SUMMARY | 2025-02-12 10:07 | XMS_ITS | Patient Health Record ---
Author Organization [facility] in [place] Address [address] [place] [address] Care Team Providers Care Privacy Director Name Role Phone Jered Gomez Primary Care Provider Allergies Allergen (clinical drug ingredient) Drug/Non Drug Allergy documented on EMR Reaction Allergy Type Onset Date Status Latex Latex rash Allergy Active Results Component Value Reference Range Notes COVID-19, Flu A+B IH (Not ye t reviewed by provider) Interpretation: Performing Lab: Notes/Report: COVID NEG FLU ANEGFLU BNEGControlPOSGLYCOHEMOGLOBIN A1C Reviewed date:06/15/2024 02:47:09 PM Interpretation: Performing Lab: Notes/Report: [facility] ,Glycohemoglobin A1C5.64.5-6.2 % ACTION SUGGESTED > 7.0 ADA THERAPEUTIC TARGET < 7.0 ADA RECOMMENDED LIMIT 4.0 - 6.0 Estimated Average Mcseows844Ejjnxsxmxc Lab:see noteML - [facility] LB CBC AUTO DIFF Reviewed date:02/04/2025 12:32:29 PM Interpretation: Performing Lab: Notes/Report: [facility] ,White Blood Count11.34.0-11.0 10 3/uLRed Blood Count4.974.20-5.40 10 6/uL Beortnzxbf83.212.0-16.0 g/fJNlvpjqsvyw96.836.0-48.0 %Mean Corpuscular Udxatd45.1 81.0-99.0 fLMean Corpuscular Lcliyromce89.626.7-34.0 pgMean Corpuscular HGB Conc 31.629.9-35.2 g/dLRed Cell Distribution Width13.511.0-15.0 %Platelet Spbhp734 150-450 10 3/uLMean Platelet Wscmdi00.19.5-13.5 fLNeutrophils Percent Auto61.9 43.0-75.0 %Lymphocytes Percent Auto26.520.5-60.0 %Monocytes Percent Auto7.11.7- 12.0 %Eosinophils Percent Auto2.00.9-7.0 %Basophils Percent Auto0.60.2-2.0 % Immature Granulocytes Pct Auto1.90.0-0.5 %Neutrophils Absolute Auto7.01.4-6.5 10 3/uLLymphocytes Absolute Auto3.01.2-3.8 10 3/uLMonocytes Absolute Auto0.80.3-0.8 10 3/uLEosinophils Absolute Auto0.20.0-0.7 10 3/uLBasophils Absolute Auto0.10.0- 0.1 10 3/uLImmature Granulocytes Abs Auto0.210.00-0.03 10 3/uLPerforming Lab:see noteML - [facility] LBFREE T3 Reviewed date:02/04/2025 12:32:29 PM Interpretation: Performing Lab: Notes/Report: [facility] ,Free T33.282.18-3.98 pg/mLPerforming Lab:see noteML - [facility] LB IRON Reviewed date:02/04/2025 12:32:29 PM Interpretation: Performing Lab: Notes/Report: [facility] ,Iron46.050.0-170.0 ug/dLPerforming Lab:see noteML - [facility] LB LIPID PROFILE Reviewed date:02/04/2025 12:32:29 PM Interpretation: Performing Lab: Notes/Report: [facility] ,Cufiyojekvmix735<=150 mg/zMDfhbnoucqwb543<=200 mg/dLHDL Ppxnpzlnjpq9202-16 mg/dL > or =60 mg/dl - LOW CARDIOVASCULAR RISK <40 mg/dl - HIGH CARDIOVASCULAR RISK LDL Cholesterol Dzalellotv46.0 <100 mg/dl OPTIMAL 160-189 mg/dl HIGH 100-129 mg/dl NEAR OR ABOVE OPTIMAL 130-159 mg/dl BORDERLINE HIGH >190 mg/dl VERY HIGH VLDL NLCGDAUYQSR45.2Chol HDL Ratio4.7 3.3 - 4.4 LOW RISK 7.1 - 11.0 MODERATE RISK >11.0 HIGH RISK 4.4 - 7.1 AVERAGE RISK Performing Lab:see note - [facility] LBPROF 14(COMP METB) Reviewed date:02/04/2025 12:32:29 PM Interpretation: Performing Lab: Notes/Report: [facility] ,Fnbycf741567-379 mmol/LPotassium4.03.5-5.1 mmol/QBmlbmqgu21392-129 mmol/LCarbon Ygfairq79.021.0-32.0 mmol/LAnion Gap8.3Nghoqsy9870-927 mg/dLBlood Urea Nitrogen 11.07.0-18.0 mg/dLCreatinine0.630.55-1.02 mg/dLEstimated GFR ( Amira>60 >=60 mL/min/1.73m 2Estimated GFR (Non- Charlene>60>=60 mL/min/1.73m 2BUN Creatinine Ratio17.8Ihqhftg4.78.5-10.1 mg/dLBilirubin Total0.30.2-1.0 mg/dL Aspartate Amino Xzulkkioaff2503-10 U/LAlanine Uctaqbbhmfzawcej2389-10 U/L Alkaline Bsvlungajjg67900-230 U/LTotal Protein6.76.4-8.2 g/dLAlbumin Level3.5 3.4-5.0 g/dLGlobulin3.2Albumin Globulin Ratio1.1Performing Lab:see note - [facility] LBT4 Reviewed date:02/04/2025 12:32:29 PM Interpretation: Performing Lab: Notes/Report: [facility] ,T4 Thyroxine7.404.80-13.90 ug/dLPerforming Lab:see note - [facility] LBTSH Reviewed date:02/04/2025 12:32:29 PM Interpretation: Performing Lab: Notes/Report: [facility] ,Thyroid Stimulating Hormone3.2990.358-3.740 uIU/mLPerforming Lab:see note - [facility] LBINSULIN Reviewed date:02/05/2025 12:57:19 PM Interpretation: Performing Lab: Notes/Report: [facility] ,Uplmtit06.72.6-24.9 uIU/mL Performed at: - [facility] [address] [id number] [employer] Person: Jerrell Villa PhD, Phone: [phone] Performing Lab:see note - [facility] LBGLYCOHEMOGLOBIN A1C Reviewed date:02/04/2025 12:32:29 PM Interpretation: Performing Lab: Notes/Report: [facility] ,Glycohemoglobin A1C5.74.5-6.2 % > 7.0 ADA RECOMMENDED LIMIT 4.0 - 6.0 ADA THERAPEUTIC TARGET < 7.0 ACTION SUGGESTED Estimated Average Hjznalv790Bsijdimmvs Lab:see note - [facility] LB TSH Reviewed date:06/15/2024 02:47:09 PM Interpretation: Performing Lab: Notes/Report: [facility] ,Thyroid Stimulating Hormone4.5110.358-3.740 uIU/mLPerforming Lab:see note - [facility] LBT4 Reviewed date:06/15/2024 02:47:09 PM Interpretation: Performing Lab: Notes/Report: [facility] ,T4 Thyroxine7.804.80-13.90 ug/dLPerforming Lab:[facility]St[facility] LBPROF 14(COMP METB) Reviewed date:06/15/2024 02:47:09 PM Interpretation: Performing Lab: Notes/Report: [facility] ,Dewjay689977-644 mmol/LPotassium3.43.5-5.1 mmol/YRwqvkkxu45207-260 mmol/LCarbon Tzibqjs33.421.0-32.0 mmol/LAnion Gap13.0Zrajeya1014-448 mg/dLBlood Urea Nitrogen 10.07.0-18.0 mg/dLCreatinine0.730.55-1.02 mg/dLEstimated GFR ( Amira>60 >=60 mL/min/1.73m 2Estimated GFR (Non- Charlene>60>=60 mL/min/1.73m 2BUN Creatinine Ratio13.3Dxjwolv4.18.5-10.1 mg/dLBilirubin Total0.40.2-1.0 mg/dL Aspartate Amino Atluxfyfveg5850-86 U/LAlanine Gbrijnofxpyapbvb3991-13 U/L Alkaline Jhnzcvehdpr53799-119 U/LTotal Protein7.16.4-8.2 g/dLAlbumin Level3.7 3.4-5.0 g/dLGlobulin3.4Albumin Globulin Ratio1.1Performing Lab:see [facility] LBLIPID PROFILE Reviewed date:06/15/2024 02:47:09 PM Interpretation: Performing Lab: Notes/Report: [facility] ,Bgadikubiboxk000<=150 mg/oDUimzjutgqll590<=200 mg/dLHDL Ryonbserwof9975-20 mg/dL > or =60 mg/dl - LOW CARDIOVASCULAR RISK <40 mg/dl - HIGH CARDIOVASCULAR RISK LDL Cholesterol Acwsupryyi690.8 100-129 mg/dl NEAR OR ABOVE OPTIMAL >190 mg/dl VERY HIGH 130-159 mg/dl BORDERLINE HIGH 160-189 mg/dl HIGH <100 mg/dl OPTIMAL VLDL GQHDIGGLBFR00.2Chol HDL Ratio4.5 7.1 - 11.0 MODERATE RISK >11.0 HIGH RISK 3.3 - 4.4 LOW RISK 4.4 - 7.1 AVERAGE RISK Performing Lab:see [facility] LBINSULIN Reviewed date:06/16/2024 12:22:06 PM Interpretation: Performing Lab: Notes/Report: [facility] ,Yiunpwt79.42.6-24.9 uIU/mL [address] [place], [place] [id number] Performed at: [facility] [employer] Person: Jerrell Villa PhD, Phone: [phone] Performing Lab:see [facility]st[facility] LBFREE T3 Reviewed date:06/15/2024 02:47:09 PM Interpretation: Performing Lab: Notes/Report: [facility] ,Free T33.502.18-3.98 pg/mLPerforming Lab:see [facility] LB CBC AUTO DIFF Reviewed date:06/15/2024 07:45:48 AM Interpretation: Performing Lab: Notes/Report: [facility] ,White Blood Count11.24.0-11.0 10 3/uLRed Blood Count4.794.20-5.40 10 6/uL Neyuomlptb01.512.0-16.0 g/yCXktxcbxkdx69.536.0-48.0 %Mean Corpuscular Uhgtmh05.6 81.0-99.0 fLMean Corpuscular Opoovnzpvs24.226.7-34.0 pgMean Corpuscular HGB Conc 33.329.9-35.2 g/dLRed Cell Distribution Width12.511.0-15.0 %Platelet Cjlwj900 150-450 10 3/uLMean Platelet Kblyrf43.79.5-13.5 fLNeutrophils Percent Auto60.9 43.0-75.0 %Lymphocytes Percent Auto28.320.5-60.0 %Monocytes Percent Auto7.61.7- 12.0 %Eosinophils Percent Auto2.50.9-7.0 %Basophils Percent Auto0.30.2-2.0 % Immature Granulocytes Pct Auto0.40.0-0.5 %Neutrophils Absolute Auto6.81.4-6.5 10 3/uLLymphocytes Absolute Auto3.21.2-3.8 10 3/uLMonocytes Absolute Auto0.90.3-0.8 10 3/uLEosinophils Absolute Auto0.30.0-0.7 10 3/uLBasophils Absolute Auto0.00.0- 0.1 10 3/uLImmature Granulocytes Abs Auto0.050.00-0.03 10 3/uLPerforming Lab:see noteML - [facility] LB Reason For Referral Reason recurrent KAYLEEN despit e meds Diagnosis 1 Acute otitis media, unspecified otitis media type (H66.90) Referral Organization [facility] Referring Provider First Name Jered Referring Provider Last Name [facility] Светлана García Referred Provider Specialty Otolaryngolo gy Referral Priority Routine Reason Patient would like s een at [facility] in office. Diagnosis 1 Ganglion cyst (M67.4 0) Referral Organization [facility] Referring Provider First Name Jered Referring Provider Last Name jody Referring Provider [facility] nora Referred Provider Eric Diaz Referred Provider Specialty Orthopedic S urgery Referral Priority Routine Medications Medication SIG (Take, Route, Frequency, Duration) Notes Start Date End Date Status Ondansetron 4 MG 1 tablet on the tong ue and allow to dissolve Orally Q 6 hours PRN; Duration: 3 days ActiveBenzonatate 200 MG1 capsule Orally Three times a day; Duration: 7 days 02/05/2025tiveNebulizer Mask and Tubing-Adult -Use Dx: Asthma as directed; Duration: 365 daysActiveNebulizer CompressorUse machine daily with nebulizer solutionNEBULIZER MACHINE. Dx. J45.24654ctiveKetoconazole 2 %1 application Externally bid; Duration: 14 07/03/2024tiveUbrelvy 100 MGTAKE 1 TABLET BY MOUTH MAY TAKE 2ND DOSE AT LEAST 2 HRS AFTER NEEDED ONCE DAILY; Duration: 30PRNActivelevoFLOXacin 750 MG1 tablet Orally Once a day; Duration: 10 day(s)02/05/2025tivehydrOXYzine HCl 25 MG1 tablet as needed Orally qid; Duration: 10 11/25/2024tiveTrelegy Ellipta 200-62.5-25 MCG/ACT1 puff Inhalation Once a day; Duration: 30 daysActiveMeloxicam 15 MGOral; Duration: 30 DaysActiveLevothyroxine Sodium 75 MCGTAKE 1 TABLET BY MOUTH EVERY DAY IN THE MORNING ON AN EMPTY STOMACH FOR 30 DAYS; Duration: 90ActiveWellbutrin XL 300 MG1 tablet in the morning Orally Once a day; Duration: 30 01/28/2025tive Albuterol Sulfate HFA 108 (90 Base) MCG/ACTINHALE 2 PUFFS INTO THE LUNGS EVERY 4 HOURS NEEDED FOR 30 DAYS; Duration: 17ActivePristiq 100 MG1 tablet Orally Once a day; Duration: 30 12/16/2024tiveAlbuterol Sulfate (2.5 MG/3ML) 0.083%3 mL as needed Inhalation every 6 hrs; Duration: 30 days03/04/2023ctive predniSONE 20 MG2 tablets Orally Once a day; Duration: 5 days01/28/2025tive Ferrous Sulfate 325 (65 Fe) MG1 tablet Orally twice a day; Duration: 30 days 02/04/2025tivetiZANidine HCl 4 MGTAKE 2 TABLETS BY MOUTH EVERYDAY AT BEDTIME NEEDED; Duration: 30ActiveDoxycycline Monohydrate 100 MG1 tablet Orally bid; Duration: 10 days02/02/2025tiveProtonix 40 MG1 tablet Orally Once a day; Duration: 30 days5Active Social History Tobacco Use: Social History Observation Description Date Details (start date - stop date) Former Smoker NA - 05/28/2016 Tobacco Use/Smoking Question Answer Notes Patient is a former smoker When did you stop smoking?05/28/2016Alcohol Screen (Audit-C) Question Answer Notes Did you have a drink containing alcohol in the p ast year? Yes How often did you have 6 or more drinks on one occasion in the past year?Never (0 point)How many drinks did you have on a typical day when you were drinking in the past year?1 or 2 drinks (0 point)How often did you have a drink containing alcohol in the past year?Less than monthly (1 point)Qcrxdb4Uerjscrbkufezm NegativeAUDIT-C (Standard) Question Answer Notes Did you have a drink containing alcohol in the p ast year? No Qftmsp5RlzfderyhsibucVtjiudvv Problems Problem Type SNOMED Code ICD Code Onset Dates Problem Status W/U Status Risk Notes Problem Sciatica (29799943) Lumbago with sciatica , left side (M54.42) ActiveconfirmedProblemAcute vaginitis (20275211)Acute vaginitis (N76.0)Active confirmedProblemAsthma (954477613)Asthma (J45.909)ActiveconfirmedProblemAnxiety (11114154)Anxiety (F41.9)ActiveconfirmedProblemHypothyroid (17243690)Hypothyroid (E03.9)ActiveconfirmedProblemDyspnea on exertion (20349003)DURON (dyspnea on exertion) (R06.09)ActiveconfirmedProblemDepression (884637520)Depression (F32.9) ActiveconfirmedProblemSleep apnea (57445995)Sleep apnea (G47.30)Activeconfirmed ProblemObstructive sleep apnea (41458852)Obstructive sleep apnea (G47.33)Active confirmedProblemInsomnia (146469933)Insomnia (G47.00)ActiveconfirmedProblem Migraine (58888033)Migraine (G43.909)ActiveconfirmedProblemMenopause (317373510) Hot flashes (N95.1)ActiveconfirmedProblemDysmenorrhea (110498967)Dysmenorrhea (N94.6)ActiveconfirmedProblemWell adult (200885405)Well adult (Z00.00)Active confirmedProblemParesthesia (07994977)Paresthesia (R20.2)ActiveconfirmedProblem Hypoglycemia (977673359)Hypoglycemia (E16.2)ActiveconfirmedProblemObstructive sleep apnea syndrome (89781384)Obstructive sleep apnea syndrome (G47.33)Active confirmedProblemLaboratory test result abnormal (729926853)Abnormal laboratory test (R89.9)ActiveconfirmedProblemMixed hyperlipidemia (951406604)Elevated triglycerides with high cholesterol (E78.2)ActiveconfirmedProblemGanglion cyst (64003359)Ganglion cyst (M67.40)ActiveconfirmedProblemhypercholesterolemia (disorder) (86599801)Hypercholesteremia (E78.00)Activeconfirmed Vital Signs Heart Rate 84 /min 05/01/2024 Vrnupgbqtne10.6 degrees Bganxhmtbr73/19/2025Respiratory Rate17 /min05/01/2024 Blood pressure ebgjoireg74 mm Hg02/05/20250944Wiwrfq84 in02/05/2025lood pressure ftnzwfav798 mm Hg02/05/20255177Hfpqkw224.6 lbs104/08/2024BMI38.62 kg/m202/05/2025 Encounters Encounter Location Date Provider Diagnosis [address] [address] 06/08/2024 Jered Hoy Acute otitis media, unspecified otitis media type H66.90 and Otalgia, unspecified laterality H92.[address] [address] 07/29/2024 Jered Hoy Acute otitis media, unspecified otitis media type H66.90 and Otalgia, unspecified laterality H92.09 [address] [place] [address] 07/03/2024 Jered Hoy Obstructive sleep ap miriam G47.33 and Migraine G43.909 [facility] [address] [place] [facility] [address] 06/01/2024 Jered Hoy Lumbago with sciatic a, left side M54.42 and Well adult Z00.00 [facility] [address] [place] [address] 11/25/2024 Jered Hoy Insomnia G47.00 and Depression F32.9 [address] [place] [address] 12/16/2024 Jered Hoy Migraine G43.909 ; Insomnia G47.00 ; Depression F32.9 and Obstructive sleep apnea G47.33 [address] [place] [address] 01/28/2025 Jered Hoy Acute non-recurrent sinusitis, unspecified location J01.90 ; Well adult Z00.00 and Nasal congestion R09.81 [address] [place] [address] 02/05/2025 Jered Hoy Cough R05.9 and Acut e bronchitis, unspecified organism J20.9 [address] [facility] [address] 05/01/2024 Jered Hoy Well adult Z00.[address] [address] 08/19/2024 Jered Hoy Hot flashes N95.1 ; Hypothyroid E03.9 ; Dysmenorrhea N94.6 ; Ganglion cyst M67.40 and Encounter for medication review Z79.899 [facility] [address] [place] [facility] [address] 04/01/2024 Jered Hoy [address] [facility] [address] 06/11/2024[facility] [place] [address]/28/2025Doug HoyAbnormal thyroid blood test R94.[address] [place] [address]/Doug Hoy [facility] [facility] [facility] [address] 08/19/2024Doug HoyGanglion cyst M67.40[address] [facility] [facility] [address]/[facility] [facility] [address]/Doug HoyWell adult Z00.00[address] [facility] [place] [facility] [address]/Doug HoyAsthma J45.909 and Well adult Z00.00[facility] [facility] [address]/Doug Hoy Acute non-recurrent sinusitis, unspecified location J01.90[address] [facility] [place] [facility] [address]/Doug HoyAbnormal laboratory test R89.9 Assessments Encounter Date Diagnosis (ICD Code) Assessment Notes Treatment Notes Treatment Clinical Notes Section Notes 05/01/2024 Well adult (ICD-10 - Z00.00) 06/01/2024Lumbago with sciatica, left side (ICD-10 - M54.42)06/01/2024Well adult (ICD-10 - Z00.00)07/03/2024Obstructive sleep apnea (ICD-10 - G47.33)07/03/2024 Migraine (ICD-10 - G43.909)On ubrelvya nd much improved migraine control while on it - noticed a difference as it has not beenrenewed and migrqained becomeing more ivfcwscj43/21/2025ute otitis media, unspecified otitis media type (ICD-10 - H66.90) You have been prescribed antibiotics for otitis media. Antibiotics may bother your stomach, so try taking them with a light meal (unless instructed otherwise by your pharmacist). It is important to take them until they are finished. You can use ccgm-bfm-tvdgrfg acetaminophen or ibuprofen if needed for pain. You have been prescribed antibiotics. You should be extra vigilant about hand washing or using hand road engineer gel. You should follow up with your Primary Care Physician or return to clinic if not improving in the next 3-5 days. if not better caling back - see Dr García 08/19/2024Hot flashes (ICD-10 - N95.1)08/19/2024Hypothyroid (ICD-10 - E03.9) 11/25/2024Insomnia (ICD-10 - G47.00)11/25/2024Depression (ICD-10 - F32.9) 12/16/2024Migraine (ICD-10 - G43.909)12/16/2024Insomnia (ICD-10 - G47.00) 5Acute otitis media, unspecified otitis media type (ICD-10 - H66.90)You have been prescribed antibiotics for otitis media. Antibiotics may bother your stomach, so try taking them with a light meal (unless instructed otherwise by your pharmacist). It is important to take them until they are finished. You can use gbmh-xst-bckjtod acetaminophen or ibuprofen if needed for pain. You have been prescribed antibiotics. You should be extra vigilant about hand washing or using hand road engineer gel. You should follow up with your Primary Care Physician or return to clinic if not improving in the next 3-5 days.5Acute non- recurrent sinusitis, unspecified location (ICD-10 - J01.90)Rest and drink more liquids, especially water. You may use a humidifier or vaporizer to help keep th drainage moist. Zlaf-igo-bntdapt Nasal Saline may help the stuffy and runny nose. Use Ibuprofen and or Tylenol as needed for fever, chills, body aches or pain. Children 5 years old should not be given gejl-fwl-xwcdoao cough and cold medications such as guaifenesin and dextromethorphan. If you're over age 5, you may try ntgd-zek-ytaugjj cold medications such as guaifenesin and dextromethorphan, [...] if symptoms do not improve within 3-5 days01/28/2025Well adult (ICD-10 - Z00.00)5Abnormal thyroid blood test (ICD-10 - R94.6)08/19/2024Ganglion cyst (ICD-10 - M67.40)11/11/2024Well adult (ICD-10 - Z00.00)12/16/2024sthma (ICD-10 - J45.909)5Cough (ICD-10 - R05.9)5Acute non-recurrent sinusitis, unspecified location (ICD-10 - J01.90)02/04/2025bnormal laboratory test (ICD-10 - R89.9)5Acute bronchitis, unspecified organism (ICD-10 - J20.9)Rest and drink more liquids, especially water. You may use a humidifier or vaporizer to help keep the drainage moist. Wufz-byj-zpvftwu Nasal Saline may help the stuffy and runny nose. Use Ibuprofen and or Tylenol as needed for fever, chills, body aches or pain. Children 5 years old should not be given yanh-ryd-gnbocuk cough and cold medications such as guaifenesin and dextromethorphan. If you're over age 5, you may try exnv-csw-xhgwooq cold medications such as guaifenesin and dextromethorphan, [...] go to the emergency room or call [phone] adult (ICD-10 - Z00.00)01/28/2025Nasal congestion (ICD-10 - R09.81)07/29/2024Otalgia, unspecified laterality (ICD-10 - H92.09) 12/16/2024Depression (ICD-10 - F32.9)08/19/2024Dysmenorrhea (ICD-10 - N94.6) 06/08/2024Otalgia, unspecified laterality (ICD-10 - H92.09)08/19/2024Ganglion cyst (ICD-10 - M67.40)12/16/2024Obstructive sleep apnea (ICD-10 - G47.33)Needs new mask and tubning astham - copd acting up - needs to improve breathing which is essential for all loife eegoxibvab56/02/2025Encounter for medication review (ICD-10 - Z79.899) Plan Of Treatment Pending Test Test Name Order Date Pulmonary Function Testing 10/10/2023 CMP (COMPLETE METABOLIC PANEL) HEMOGLOBIN A1C (GLYCO) 05/01/2023 HEMOGLOBIN A1C (GLYCO) 06/01/2024 HEMOGLOBIN A1C (GLYCO) 08/19/2024 HEMOGLOBIN A1C (GLYCO) 01/28/2025 IRON, TOTAL 01/28/2025 IRON, TOTAL 08/19/2024 LIPID PANEL (CHOL/TRIG/HDL/LDL) 01/29/20 25 LIPID PANEL (CHOL/TRIG/HDL/LDL) 06/02/19 25 LIPID PANEL (CHOL/TRIG/HDL/LDL) 05/01/19 24 CBC WITH DIFF (EXP 12/2024) 05/01/2023 FSH, LH, and PROLACTIN 08/19/2024 PROGESTERONE 08/19/2024 VITAMIN D, 25 LEVEL (TOTAL) 08/19/2024 Echocardiogram 10/10/2023 Split Night Sleep Study 12/12/2023 FLOW CYTOMETRY 02/04/2025 ESTRADIOL (E2)* 08/19/2024 PFT Complete 10/31/2023 Insulin Level 08/19/2024 Insulin Level 01/28/2025 Insulin Level 05/01/2023 Insulin Level 06/01/2024 PFT Complete w/o Arterial Blood Gases CBC W/AUTO DIFF 02/04/2025 COVID-19, Flu A+B IH 02/05/2025 Covid-19 PCR (CVDTBH) 01/25/2023 LDH 02/04/2025 THYROID PROFILE WITH TSH 08/30/2023 THYROID PROFILE WITH TSH 11/04/2023 XR CHEST 2 V 10/10/2023 THYROID PANEL (T4/TSH/FREE T3) 4 THYROID PANEL (T4/TSH/FREE T3) 5 THYROID PANEL (T4/TSH/FREE T3) 4 THYROID PANEL (T4/TSH/FREE T3) 4 THYROID PANEL (T4/TSH/FREE T3) 5 THYROID PANEL (T4/TSH/FREE T3) 5 THYROID PANEL (T4/TSH/FREE T3) 5 Holter Monitor - 3 days up to 14 days CMP (COMP MET ALCOCER) w/eGFR CKD-EPI 2024 CMP (COMP MET ALCOCER) w/eGFR CKD-EPI 2024 CMP (COMP MET ALCOCER) w/eGFR CKD-EPI 2024 CBC WITH DIFF 01/28/2025 CBC WITH DIFF 08/19/2024 CBC WITH DIFF 06/01/2024 Insurance Providers Payer Name Payer Address Payer Phone Subscriber Number Group Number Insured Name Patient Relationship to Insured Coverage Start Date Coverage End Date [employer] [place] [employer] [address] [address] [place] [id number] Cassy Austin - patient is the [id number] 2022 Medications Administered Medication Instructions Date of Administration Dosage Notes Ketorolac Tromethamine 460 ud41Mwqunvhyy Kiaiciayrsjw57/19/434310 mgmethylPREDNISolone Acetate 5120 mgOndansetron HCl mgOrphenadrine Eohmtzs54/12/767058 mg 60 Medical (General) History Medical History History ICD Code Dysmenorrhea N94.6 Obstructive sleep apnea G47.33 Lumbago with sciatica, left side M54.42 Paresthesias/numbness R20.9 Acute bronchitis J20.9 Chest pain R07.9 Sinus tachycardia R00.0 Dyspnea R06.00 Over weight E66.3 Eczema L30.9 Sleep apnea G47.30 Fatigue R53.83 COVID-19 U07.1 Hidradenitis suppurativa L73.2 Paresthesia R20.2 Hypothyroidism E03.9 Hypercholesteremia E78.00 Migraine G43.909 Hypoglycemia E16.2 Low back pain, unspecified M54.50 Neck pain M54.2 Insomnia G47.00 Depression F32.9 Back pain, thoracic M54.6 Surgical History Surgery Date(Month/Year) Right wrist injection 2023 Carpal Tunnel Release- Bilateral 2001 T & A 2004 Laproscopic Cholecystectomy 2008
[2025-02-12 10:54] LABS: Hematocrit 41.9 % (36.0-48.0); Hemoglobin 13.2 g/dL (12.0-16.0); Immature Granulocytes Abs Auto 0.11 10^3/uL (0.00-0.03); Immature Granulocytes Pct Auto 1.0 % (0.0-0.5); Lymphocytes Absolute Auto 2.2 10^3/uL (1.2-3.8); Mean Corpuscular HGB Conc 31.5 g/dL (29.9-35.2); Mean Corpuscular Hemoglobin 26.7 pg (26.7-34.0); Mean Corpuscular Volume 84.8 fL (81.0-99.0); Platelet Count 233 10^3/uL (150-450); Red Blood Count 4.94 10^6/uL (4.20-5.40); White Blood Count 11.3 10^3/uL (4.0-11.0)
== END 2025-02-12 10:03 | disposition home or self-care (01) ==
LOC: LAB 10:03
PROVIDERS: PCP Family Medicine; Visit Provider Family Medicine
DX: R89.9 Unspecified abnormal finding in specimens from other organs, systems and tissues (principal)
CPT/HCPCS: 36415; 83615; 85025